=== PATIENT | female | born 2000 | race Caucasian/White ===

== ENCOUNTER 2023-09-14 20:40 | Emergency (ER) | payer OTHER, MEDICAID, SELFPAY ==
[2023-09-14 20:47] VITALS: BP 149/89; PULSE 52; RESP 16; TEMP 36.9; O2SAT 99; BMI 27.1
[2023-09-14 21:50] LABS: Bilirubin Urine MODERATE (NEGATIVE); Blood Urine LARGE (NEGATIVE); Clarity Urine CLEAR (CLEAR); Color Urine DK. ORANGE (YELLOW); Glucose Urine UA 250 mg/dL (NEGATIVE); Ketones Urine NEGATIVE (NEGATIVE); Leukocyte Esterase Urine MODERATE (NEGATIVE); Nitrite Urine POSITIVE (NEGATIVE); Protein Urine 100 mg/dL (NEG/TRACE); Urobilinogen Urine >=8.0 EU/dL (0.2-1.0)
[2023-09-14 21:52] LABS: Urine Microscopic Indicated YES
[2023-09-14 21:59] VITALS: BP 121/71; PULSE 52; RESP 16; O2SAT 100
[2023-09-14 22:05] LABS: Bacteria Urine NONE SEEN #/HPF (NONE SEEN); Cast Seen? NONE SEEN #/LPF (NONE SEEN); Crystals Seen? None Seen #/HPF (None Seen); Mucus Urine NONE SEEN (NONE SEEN); RBC Urine 0-2 #/HPF (0-2); Squamous Epithelial Cell Urine FEW #/LPF (NONE/RARE); Transitional Epi Cells Urine RARE #/LPF (NONE SEEN); Urine Culture Indicated YES
--- NOTE | 2023-09-14 22:06 | CT_ITS ---
The [address] [address] Patient Name: KWASI HEBERT MRN: [id number] date: 2000 Sex: F Assigned Patient Location: ER Current Patient Location: ER Accession/Order Number: [id number] Exam Date: 09/14/2023 22:26 Report Date: 09/14/2023 22:43 At the request of: EARLINE HALL Procedure: CT abdomen pelvis wo con EXAM: CT abdomen pelvis wo con HISTORY: left flank pain, left abd pain COMPARISON: None. TECHNIQUE: Unenhanced axial CT of the abdomen and pelvis was performed with coronal and sagittal reformats provided. FINDINGS: Lung bases: Clear. ABDOMEN: Liver: Normal. Gallbladder/biliary: Hyperdense debris in the gallbladder lumen could reflect sludge or small stones. No biliary dilation. Pancreas: Normal. Spleen: Normal. Adrenals: Normal. Kidneys, ureters and urinary bladder: Normal. Pelvis: Normal size of the uterus. No adnexal masses. Vasculature: Normal caliber of the abdominal aorta. Hollow viscera/retroperitoneum: Normal appearance of the gastroesophageal junction. Small bowel is normal caliber. Appendix is normal. No focal colonic wall thickening. No mesenteric or pelvic lymphadenopathy. No intra-abdominal free fluid or free air. Musculoskeletal/soft tissues: The soft tissues are within normal limits. No acute fracture or aggressive osseous abnormality. CT/CT abdomen pelvis wo con IMPRESSION: Unremarkable CT of the abdomen and pelvis. Electronically authenticated by: DAISY CORDOBA Date: 09/14/2023 22:43
--- NOTE | 2023-09-14 22:07 | ED_ITS ---
HPI - General Adult General Chief complaint: Back Pain/Injury Stated complaint: POSS KIDNEY STONE Time Seen by Provider: 09/14/23 21:20 Source: patient Mode of arrival: walk-in History of Present Illness HPI narrative: Patient developed low back pain - left worse than right - a couple of days ago. She started to developed urinary frequency yesterday and then had trouble passing urine today due to the pain. She had sudden worsening of the low back pain around 8pm and it moved more prominently into the left flank and left lower abdomen at that time. Nothing taken at home for pain. No prior history of similar pain or kidney stones although she admits that she frequently gets UTIs. No fever or chills. She had some nausea and vomited a couple of days ago. She is currently on her menstrual period. Related Data Home Medications Medication Instructions Recorded Confirmed brivaracetam 100 mg tablet 100 mg PO BID 09/14/23 09/14/23 (Briviact) sertraline 50 mg tablet 50 mg PO DAILY 09/14/23 09/14/23 Previous Rx's Medication Instructions Recorded ciprofloxacin HCl 500 mg tablet 500 mg PO BID #10 tabs 09/14/23 (Cipro) nabumetone 750 mg tablet 750 mg PO BID PRN pain #14 tabs 09/14/23 Allergies Allergy/AdvReac Type Severity Reaction Status Date / Time Iodinated Contrast Media Allergy Severe Verified 09/14/23 20:53 morphine Allergy Severe Verified 09/14/23 20:53 zonisamide Allergy Severe Verified 09/14/23 20:53 Exam Narrative Exam Narrative: Nurses notes and vital signs reviewed and patient is not hypoxic. afebrile General: Well-appearing and in no apparent distress. Skin: Warm, dry, no pallor noted. No rash to back or abdomen. Head: Normocephalic, atraumatic. Neck: Supple, non-tender. Eye: Pupils are equal, round and EOMI. No scleral icterus. Cardiovascular: Regular Rate and Rhythm without murmur, gallop or rub. Respiratory: No accessory muscle use or respiratory distress. Lungs are clear to auscultation, no wheezing, rales or rhonchi Back: No midline thoracic or lumbar vertebral tenderness. Left CVA tenderness Musculoskeletal: normal ROM GI: Abdomen is soft, non-distended. Normal bowel sounds. No masses appreciated. LLQ tenderness to palpation. No rebound, guarding, or rigidity noted. Neurological: A&O x4. No cranial nerve dysfunction observed. No truncal ataxia. Moves all extremities. Sensation intact. Psychiatric: Cooperative and interactive. Normal mood and affect. Constitutional Vital Signs, click to edit/add: Last Vital Signs Temp 98.4 F 09/14/23 20:47 Pulse 52 L 09/14/23 21:59 Resp 16 09/14/23 21:59 BP 121/71 09/14/23 21:59 Pulse Ox 100 09/14/23 21:59 O2 Del Method Room Air 09/14/23 20:47 Course Vital Signs Vital signs: Vital Signs Temperature 98.4 F 09/14/23 20:47 Pulse Rate 52 L 09/14/23 20:47 Respiratory Rate 16 09/14/23 20:47 Blood Pressure 149/89 H 09/14/23 20:47 Pulse Oximetry 99 09/14/23 20:47 Oxygen Delivery Method Room Air 09/14/23 20:47 Temperature 98.4 F 09/14/23 20:47 Pulse Rate 52 L 09/14/23 21:59 Respiratory Rate 16 09/14/23 21:59 Blood Pressure 121/71 09/14/23 21:59 Pulse Oximetry 100 09/14/23 21:59 Oxygen Delivery Method Room Air 09/14/23 20:47 Medical Decision Making MDM Narrative Medical decision making narrative: Urine was obtained in triage and the patient was found to have an acute urinary tract infection. No beds were initially available for the patient to be brought back to be examined and further evaluated. After examination, I ordered the patient undergo CT scanning of the abdomen pelvis. I also ordered her to receive the first dose of Cipro for her acute u rinary tract infection. Toradol was also given orally for pain. CT did not reveal any worrisome findings and the patient was discharged home with prescriptions for Cipro and Relafen. PCP follow up or ED return if she worsens Lab Data Lab results reviewed: Yes I reviewed the patient's lab results Labs: Lab Results 09/14/23 Range/Units 20:59 Urine Color Dk. orange (YELLOW) Urine Clarity Clear (CLEAR) Urine pH 5.0 (5.0-9.0) Ur Specific [place] 1.010 (1.005-1.025) Urine Protein 100 A (NEG/TRACE) mg/dL Urine Glucose (UA) 250 A (NEGATIVE) mg/dL Urine Ketones Negative (NEGATIVE) mg/dL Urine Occult Blood Large A (NEGATIVE) Urine Nitrite Positive A (NEGATIVE) Urine Bilirubin Moderate A (NEGATIVE) Urine Urobilinogen >=8.0 (0.2-1.0) EU/dL Ur Leukocyte Esterase Moderate A (NEGATIVE) Urine RBC 0-2 (0-2) #/HPF Urine WBC 10-20 A (NONE SEEN) #/HPF Ur Squamous Epith Cells Few A (NONE/RARE) #/LPF Ur Transition Epith Cell Rare A (NONE SEEN) #/LPF Urine Crystals None seen (None Seen) #/HPF Urine Bacteria None seen (NONE SEEN) #/HPF Urine Casts None seen (NONE SEEN) #/LPF Urine Mucus None seen (NONE SEEN) Ur Culture Indicated? Yes Imaging Data CT scan - abdomen: Radiologist's impression: ITS Impressions Abdomen/Pelvis CT 09/14/23 22:06 IMPRESSION: Unremarkable CT of the abdomen and pelvis. Electronically authenticated by: DAISY CORDOBA Date: 09/14/2023 22:43 Discharge Plan Discharge Chief Complaint: Back Pain/Injury Clinical Impression: UTI (urinary tract infection), Low back pain Patient Disposition: Home, Self-Care Time of Disposition Decision: 22:11 Prescriptions / Home Meds: New ciprofloxacin HCl [Cipro] 500 mg tablet 500 mg PO BID Qty: 10 0RF nabumetone 750 mg tablet 750 mg PO BID PRN (Reason: pain) Qty: 14 0RF No Action Briviact 100 mg tablet 100 mg PO BID sertraline 50 mg tablet 50 mg PO DAILY Instructions: Urinary Tract Infection in Women (ED), Acute Low Back Pain (ED) Stand Alone Forms: Portal Instructions Referrals: HINA BAILEY [Primary Care Provider] - 1 week
[2023-09-14] MEDS: CIPROFLOXACIN HCL 500 MG TABLET PO (22:45)
[2023-09-14] MEDS: KETOROLAC TROMETHAMINE 10 MG TABLET PO (22:45)
== END 2023-09-14 22:59 | disposition home or self-care (01) ==
PROVIDERS: Emergency Provider Emergency Medicine; PCP Family Medicine
DX: N39.0 Urinary tract infection, site not specified (principal); M54.50 Low back pain, unspecified; Z79.899 Other long term (current) drug therapy
CPT/HCPCS: 74176; 81001; 87086; 87150; 87186; 99284

== ENCOUNTER 2023-12-31 11:28 | Emergency (ER) | payer OTHER, MEDICAID, SELFPAY ==
[2023-12-31 11:31] VITALS: BP 104/60; PULSE 53; TEMP 36.6; O2SAT 100; BMI 27.3
--- NOTE | 2023-12-31 11:35 | ED.ANXIETY1 ---
HPI - Anxiety General Chief Complaint: Anxiety Stated Complaint: SOB Time Seen by Provider: 12/31/23 11:31 Source: patient Mode of arrival: walk-in Limitations: no limitations History of Present Illness HPI narrative: The patient coming to the ER with 2 days history of chest pain the pain started after she had a panic attack and she vomited couple times. None of the vomitus was bloody. But she mentioned that she has been having retrosternal pain since then that is fixed and will get worse whenever she leaned forward. She denies any nausea vomiting since then she also denies any cough or fever. Related Data Home Medications ?Medication ?Instructions ?Recorded ?Confirmed brivaracetam 100 mg tablet 100 mg PO BID 09/14/23 12/31/23 (Briviact) Previous Rx's ?Medication ?Instructions ?Recorded famotidine 20 mg tablet (Pepcid) 20 mg PO BID #10 tabs 12/31/23 meloxicam 15 mg tablet 15 mg PO DAILY PRN pain #10 tabs 12/31/23 Allergies Allergy/AdvReac Type Severity Reaction Status Date / Time Iodinated Contrast Media Allergy Severe Verified 09/14/23 20:53 morphine Allergy Severe Verified 09/14/23 20:53 zonisamide Allergy Severe Verified 09/14/23 20:53 Review of Systems ROS Status of ROS 10 or more systems reviewed and unremarkable except as noted in history and below Exam Narrative Exam Narrative: Nurses notes and vital signs reviewed and patient is not hypoxic. General: Well-appearing and in no apparent distress. Skin: Warm, dry, no pallor noted. No rash. Head: Normocephalic, atraumatic. Neck: Supple, non-tender. Eye: Pupils are equal, round and EOMI. No scleral icterus. Ears, Nose, Mouth, and Throat: TM are clear, no nasal mucosal hypertrophy. Oral mucosa is moist, no posterior oropharynx erythema, uvula is mid-line Cardiovascular: Regular Rate and Rhythm without murmur, gallop or rub. Respiratory: No accessory muscle use or respiratory distress. Lungs are clear to auscultation, no wheezing, rales or rhonchi Chest Wall: Tenderness upon palpation of the upper retrosternal area Back: No midline thoracic or lumbar vertebral tenderness. No CVA tenderness Musculoskeletal: normal ROM, no calf or popliteal tenderness, no lower extremity edema/swelling GI: Abdomen is soft, non-distended. Normal bowel sounds. No masses appreciated. No tenderness to palpation. No rebound, guarding, or rigidity noted. Neurological: A&O x4. No cranial nerve dysfunction observed. No truncal ataxia. Moves all extremities. Sensation intact. Psychiatric: Cooperative and interactive. Normal mood and affect. Constitutional Vital Signs, click to edit/add: Last Vital Signs Temp 97.8 F 12/31/23 11:31 Pulse 53 L 12/31/23 11:31 Resp 16 12/31/23 11:31 BP 104/60 12/31/23 11:31 Pulse Ox 100 12/31/23 11:31 O2 Del Method Room Air 12/31/23 11:31 Course Vital Signs Vital signs: Vital Signs Temperature 97.8 F 12/31/23 11:31 Pulse Rate 53 L 12/31/23 11:31 Respiratory Rate 16 12/31/23 11:31 Blood Pressure 104/60 12/31/23 11:31 Pulse Oximetry 100 12/31/23 11:31 Oxygen Delivery Method Room Air 12/31/23 11:31 Temperature 97.8 F 12/31/23 11:31 Pulse Rate 53 L 12/31/23 11:31 Respiratory Rate 16 12/31/23 11:31 Blood Pressure 104/60 12/31/23 11:31 Pulse Oximetry 100 12/31/23 11:31 Oxygen Delivery Method Room Air 12/31/23 11:31 MDM - Anxiety MDM Narrative Medical decision making narrative: EKG showing sinus rhythm with a heart rate of [address] elevation or depression The patient chest x-ray showed no acute pathology CBC and chemistry as well as troponin showed no acute pathology as well The patient presentation is mostly secondary to atypical chest pain which mostly secondary to either costochondritis or possibly GERD. Right now the patient will be treated with Pepcid and Mobic to go home with She was instructed that she need to monitor her symptoms getting better she received Toradol in the ER as well as Pepcid before getting discharged The patient is to follow up with primary care physician in next 2-3 days or to return to the emergency department should any of the signs or symptoms worsen or new symptoms develop. The patient agrees with the following Diagnosis and Treatment plan and the patient will be discharged home. Lab Data Labs: Lab Results 12/31/23 Range/Units 11:44 WBC 5.8 (4.0-11.0) 10^3/uL RBC 4.56 (4.20-5.40) 10^6/uL Hgb 13.5 (12.0-16.0) g/dL Hct 41.6 (36.0-48.0) % MCV 91.2 (81.0-99.0) fL MCH 29.6 (26.7-34.0) pg MCHC 32.5 (29.9-35.2) g/dL RDW 13.4 (11.0-15.0) % Plt Count 194 (150-450) 10^3/uL MPV 11.5 (9.5-13.5) fL Neut % (Auto) 60.9 (43.0-75.0) % Lymph % (Auto) 28.5 (20.5-60.0) % [place] % (Auto) 6.5 (1.7-12.0) % Eos % (Auto) 2.4 (0.9-7.0) % Baso % (Auto) 1.5 (0.2-2.0) % Neut # (Auto) 3.5 (1.4-6.5) 10^3/uL Lymph # (Auto) 1.7 (1.2-3.8) 10^3/uL [place] # (Auto) 0.4 (0.3-0.8) 10^3/uL Eos # (Auto) 0.1 (0.0-0.7) 10^3/uL Baso # (Auto) 0.1 (0.0-0.1) 10^3/uL Abs Immat Gran (auto) 0.01 (0.00-0.03) 10^3/uL Imm/Tot Granulo (auto) 0.2 (0.0-0.5) % Sodium 140 (136-145) mmol/L Potassium 3.8 (3.5-5.1) mmol/L Chloride 103 (98-107) mmol/L Carbon Dioxide 27.0 (21.0-32.0) mmol/L Anion Gap 13.8 BUN 14.0 (7.0-18.0) mg/dL Creatinine 0.94 (0.55-1.02) mg/dL Est GFR ( Amer) >60 (>=60) Est GFR (Non-Af Amer) >60 (>=60) BUN/Creatinine Ratio 14.9 Glucose 95 (74-106) mg/dL Calcium 9.4 (8.5-10.1) mg/dL Total Bilirubin 0.3 (0.2-1.0) mg/dL AST 10 L (15-37) U/L ALT 16 (14-59) U/L Alkaline Phosphatase 68 (46-116) U/L Troponin I High Sens 4.4 (4.0-51.3) pg/mL Total Protein 7.2 (6.4-8.2) g/dL Albumin 4.1 (3.4-5.0) g/dL Globulin 3.1 g/dL Albumin/Globulin Ratio 1.3 Serum HCG, Qual Negative (NEGATIVE) Discharge Plan Discharge Stand Alone Forms: Portal Instructions Chief Complaint: Anxiety Clinical Impression: Acute costochondritis GERD (gastroesophageal reflux disease) Qualifiers: Esophagitis presence: without esophagitis Qualified Code(s): K21.9 - Gastro-esophageal reflux disease without esophagitis Patient Disposition: Home, Self-Care Time of Disposition Decision: 12:20 Condition: Good Prescriptions / Home Meds: New famotidine [Pepcid] 20 mg tablet 20 mg PO BID Qty: 10 0RF meloxicam 15 mg tablet 15 mg PO DAILY PRN (Reason: pain ) Qty: 10 0RF No Action Briviact 100 mg tablet 100 mg PO BID Print Language: Indian Instructions: Costochondritis (ED), GERD (Gastroesophageal Reflux Disease) (DC) Referrals: HINA BAILEY [Primary Care Provider] - 1 week
--- NOTE | 2023-12-31 11:36 | XR_ITS ---
[address] [address] Patient Name: KWASI HEBERT MRN: [id number] date: 2000 Sex: F Assigned Patient Location: ER Current Patient Location: ER Accession/Order Number: [id number] Exam Date: 12/31/2023 11:40 Report Date: 12/31/2023 11:55 At the request of: LUCY BENITEZ Procedure: XR chest 1V EXAM: XR chest 1V HISTORY: cp COMPARISON: None. TECHNIQUE: Frontal view of the chest. FINDINGS: No focal consolidations or pleural effusions. Cardiomediastinal silhouette is unremarkable. Visualized osseous structures are unremarkable. XR/XR chest 1V IMPRESSION: No acute disease. Electronically authenticated by: ZARINA HAMMONDS Date: 12/31/2023 11:55
--- NOTE | 2023-12-31 11:36 | ECG_ITS ---
[facility] Test Date: 2023-12-31 Pat Name: KWASI HEBERT Department: Room: - Gender: Female Talent Recruiter: : 2000 Requested By: Order Number: [id number] Reading MD: JARAD FLORES Measurements Intervals [place] Rate: 51 P: 67 HI: 120 QRS: 83 QRSD: 76 T: 83 QT: 420 QTc: 396 Interpretive Statements 1100 Sinus rhythm Non-Specific T wave inversion in aVL 9110 normal ECG No previous ECG available for comparison Electronically Signed On 01-01-2024 6:24:45 EDT by JARAD FLORES
--- OUTSIDE RECORDS SUMMARY | 2023-12-31 11:36 | XMS_ITS | CCD ---
Author Organization [facility] Care Team Providers Care Pharmacy Operations Manager Name Role Phone Kamran TORRE, Remi Dahl Primary Care Provider MD Remi Andrew Primary Care Provider JERZY Welsh Emergency Provider [phone] DO Brando Guy Emergency Provider [phone] KRISTA Barlow Emergency Provider [phone] KRISTA Barlow Attending Provider [phone] DO Bill Keith Emergency Provider Kamran TORRE, Remi Dahl Primary Care Provider Kamran TORRE, Remi Dahl Primary Care Provider Kamran TORRE, Remi Dahl Primary Care Provider MD Remi Andrew Primary Care Provider MD Sedrick Pina Jr Emergency Provider KRISTA Funk Emergency Provider DO Shashi Ornelas Emergency Provider MD Remi Batista Primary Care Provider KRISTA Barlow Emergency Provider [phone] CLAUDIO MICHAELS Referring Unavailable ANDREWREMI Primary Care Unavailable CLAUDIO MICHAELS Referring Unavailable CLAUDIO MICHAELS Attending Unavailable REMI ANDREW Primary Care Unavailable LAYTON ALCALA Referring Unavailable REMI ANDREW Primary Care Unavailable EVARISTO TORRES Referring Unavailable ANDREW, REMI JORGE Primary Care Unavailable [facility] Care Unavailable SERLETIS, DEMITRE Referring Unavailable [facility] Primary Care Unavailable EVARISTO TORRES Referring Unavailable [facility] Primary Care Unavailable NYASIA OJEDA Attending Unavailable SHEREE RICO [facility] Unavailable SERLETIS, DEMITRE Attending Unavailable SERLETIS, DEMITRE Admitting Unavailable [facility] Care Unavailable SERLETIS, DEMITRE Referring Unavailable [facility] Primary Care Unavailable SERLETIS, DEMITRE Attending Unavailable SERLETIS, DEMITRE Referring Unavailable [facility] Primary Care Unavailable SERLETIS, DEMITRE Referring Unavailable [facility] Primary Care Unavailable EVARISTO TORRES Referring Unavailable CHRISTIANO VACA Attending Unavailable [facility] Care Unavailable EVARISTO TORRES Referring Unavailable [facility] Primary Care Unavailable EVARISTO TORRES Referring Unavailable [facility] Primary Care Unavailable SERLETIS, DEMITRE Referring Unavailable [facility] Care Unavailable SERLETIS, DEMITRE Referring Unavailable [facility] Care Unavailable SERLETIS, DEMITRE Attending Unavailable [facility] Primary Care Unavailable JARAD SON E Referring Unavailable [facility] Primary Care Unavailable JARAD SON E Referring Unavailable JARAD SON E Attending Unavailable [facility] Care Unavailable SERLETIS, DEMITRE Attending Unavailable [facility] Primary Care Unavailable [facility] Primary Care Unavailable MARIN, ROBERT R Attending Unavailable [facility] Primary Care Unavailable [facility] Primary Care Unavailable [facility] Primary Care Unavailable MARIN, ROBERT R Attending Unavailable [facility] Primary Care Unavailable [facility] Primary Care Unavailable MARIN, ROBERT R Attending Unavailable [facility] Primary Care Unavailable SERLETIS, DEMITRE Attending Unavailable SERLETIS, DEMITRE Admitting Unavailable [facility] Primary Care Unavailable MARIN, ROBERT R Attending Unavailable [facility] Primary Care Unavailable SERLETIS, DEMITRE Attending Unavailable MARIN, ROBERT R Referring Unavailable [facility] Primary Care Unavailable MARIN, ROBERT R [facility] Care Unavailable EVARISTO TORRES Referring Unavailable ANDREW, REMI JORGE Primary Care Unavailable ANDREW, REMI JORGE Primary Care Unavailable EVARISTO TORRES Attending Unavailable ANDREW, REMI JORGE Primary Care Unavailable CLAUDIO MICHAELS Referring Unavailable ANDREW, REMI JORGE Primary Care Unavailable Travis MILIT[employer] SOURCE OPERATIONS SPECIALIST, Jessa L Unavailable [phone] Remi Andrew MD Primary Care Provider [phone] NONE, XXXX Primary Care Physician Unavailab ALANNAH Hui Attending Unavailable CHRISTIE ALDANA Attending Unavailable CHRISTIE ALDANA Attending Unavailable CHRISTIE ALDANA Attending Unavailable Robyn Bundy Attending Unavailable Robyn Bundy Admitting Unavailable Feng Barlow Admitting Unavailable Feng Barlow Attending Unavailable Remi Andrew Primary Care Unavailable Kristine Welsh Attending Unavailable Kristine Welsh Admitting Unavailable Remi Andrew Primary Care Unavailable Allergies Allergy Classification Reported Allergen(s) Allergy Type Date of Onset Reaction(s) Facility (20 sources) Iodinated Contrast Media; Translations: [IODINATED CONTRAST MEDIA] Drug Intolerance 7 Hives, Itching, Anaphylaxis, Dizziness, Headache, Rash, Shortness of breath [facility] (20 sources) Morphine; Translations: [MORPHINE] Drug Allergy 2 Intolerance [facility] Work Phone: (20 sources) zonisamide; Translations: [ZONISAMIDE] Drug Allergy 2 Mental Status Change, GI Upset, Vomiting, Shortness of Breath [facility] (3 sources) Contrast media Propensity to adverse reactions 2 Anaphylaxis [facility] (4 sources) Iodine Drug Allergy 3 [facility] (4 sources) Zonisamide Allergy to substance 2 GI intolerance, Shortness of breath [facility] (1 source) Morphine Drug Allergy 3 [facility] (1 source) zonisamide Drug Allergy 3 [facility] (1 source) Iodinated Contrast Media Drug allergy (disorder) 3 [facility] Medications Current Medications Medication Drug Class(es) Dates Sig (Normalized) Sig (Original) amoxicillin 875 mg oral tablet (8 sources) Penicillin-class Antibacterial Start: 08-30-2022 End: 09-01-2022 take 1 tablet by mouth twice daily amoxicillin (AMOXIL) 875 mg tablet Take 1 tablet by mouth twice daily for 2 doses. 2 tablet 0 08/30/2022 09/01/2022 Active Start: 08-07-2021 End: 10-10-2021 take 875 mg by mouth every twelve hours Amoxicillin Discontinued 875 MG PO Q12H 02 06August 07, 2021 12:00am October 10, 2021 3:50pm Comment on above: Take 1 tablet by jaron th twice daily for 2 doses. amoxicillin 875 mg / clavulanate 125 mg oral tablet (1 source) Penicillin-class Antibacterial Start: 07-11-20 take 1 tablet by mouth twice daily Amoxicillin-Pot Clavulanate Active 1 TAB PO Twice daily July 11, 2023 12:00am brivaracetam 100 mg oral tablet (20 sources) Start: 07-31-20 End: 01-28-20 24 take 1 tablet by mouth twice daily brivaracetam (BRIVIACT) 100 mg tablet Indications: Seizure (HCC) Take 1 tablet by mouth two times a day for 90 days. 60 tablet 2 10/30/2023 01/28/2024 Active Start: 11-27-2022 End: 06-19-2023 take 1 tablet by mouth twice daily brivaracetam (BRIVIACT) 100 mg tablet Indications: Seizure (HCC) Take 1 tablet by mouth twice daily for 90 days. 60 tablet 2 03/21/2023 Active Start: 11-01-2022 End: 10-12-2022 take 1 tablet by mouth twice daily brivaracetam (BRIVIACT) 100 mg tablet Indications: Seizure (HCC) Take 1 tablet by mouth twice daily for 180 days. Do not start before November 01, 2022. 180 tablet 1 11/01/2022 10/12/2022 Discontinued Start: 10-03-2022 End: 11-11-2022 take 1 tablet by mouth twice daily brivaracetam (BRIVIACT) 100 mg tablet Indications: Seizure (HCC) Take 1 tablet by mouth twice daily for 30 days. 60 tablet 0 10/12/2022 Active Comment on above: Take 1 tablet by [facility] twice daily for 180 days. Do not start before November 01, 2022. Take 1 tablet by [facility] twice daily for 30 days. Take 1 tablet by [facility] twice daily for 90 days. Take 1 tablet by [facility] two times a day for 90 days. cephalexin 500 mg oral capsule (20 sources) Cephalosporin Antibacterial Start: take 500 mg by mouth twice daily Cephalexin Active 500 MG PO Twice daily 14 March 09, 2023 11:00pm Start: 10-10-2021 End: 11-10-2021 take 500 mg by mouth twice daily Cephalexin Discontinued 500 MG PO Twice daily 14 October 10, 2021 12:00am November 10, 2021 10:12am Start: 06-14-2021 End: 10-10-2021 take 500 mg by mouth every six hours Cephalexin Discontinued 500 MG PO Q6H 28 June 13, 2021 11:00pm October 10, 2021 3:50pm Start: 05-15-2020 End: 06-15-2020 take 1000 mg by mouth twice daily Cephalexin Discontinued 1000 MG PO Twice daily 280 May 14, 2020 11:00pm June 15, 2020 8:59am ciprofloxacin 3 mg/ml ophthalmic solution (1 source) Quinolone Antimicrobial Start: 01-30-2023 End: 02-24-2023 take 1 drop(s) into the eye(s) four times daily ciprofloxacin HCl (CILOXAN) 0.3 % ophthalmic solution Use 1 Drop in the right eye four times daily for 5 days. 5 mL 0 01/30/2023 02/24/2023 Active Comment on above: Use 1 Drop in the ri ght eye four times daily for 5 days. docusate sodium 50 mg / sennosides, correction 8.6 mg oral tablet (7 sources) Start: 12-22-2022 End: 01-23-2023 take 1 tablet by mouth twice daily senna-docusate (SENNA-S) 8.6-50 mg per tablet Take 1 tablet by mouth twice daily. 60 tablet 0 12/22/2022 01/23/2023 Active Start: 07-15-2022 End: 01-12-2023 take 2 tablets by mouth once daily at bedtime Sennosides-Docusate Sodium (Senna Plus) 8.6-50 mg tablet Discontinued 2 TAB PO Daily at bedtime July 15, 2022 12:00am August 25, 2022 2:51pm Comment on above: Take 1 tablet by jaron th twice daily. iv contrast (will be provided with radiology test) (2 sources) Start: 3 End: inject 1 dose intravenously once iv contrast (will be provided with radiology test) Indications: Encounter for other preprocedural examination CTA Head W IVCON No IV access, insert saline lock prior to the sedation, infusion, injection for imaging exam. Discontinue saline lock post exam. If Pt. has a central line or IVAD, may access for administration according to line specific nursing protocol. Once exam is complete flush line and de-access according to line specific nursing protocol in the CT contrast administration guidelines link. 1 Each 0 10/19/2022 10/20/2022 Active Start: 10-19-2022 End: 10-20-2022 inject 1 dose intravenously once iv contrast (will be provided with radiology test) Indications: Encounter for other preprocedural examination MRI Brain Localization Inject, intravenously, once for 1 dose.No IV access, insert saline lock prior to beginning of sedation, infusion, injection of imaging exam.Discontinue saline lock post exam. If Pt. has a central line or IVAD, may access for administration according to line specific nursing protocol.Once exam is complete flush line and de-access according to line specific nursing protocol in the MR contrast administration guidelines link 1 Each 0 10/19/2022 10/20/2022 Active Comment on above: CTA Head W IVCON No IV access, insert saline lock prior to the sedation, infusion, injection for imaging exam. Discontinue saline lock post exam. If Pt. has a central line or IVAD, may access for administration according to line specific nursing protocol. Once exam is complete flush line and de-access according to line specific nursing protocol in the CT contrast administration guidelines link. MRI Brain Localizati on Inject, intravenously, once for 1 dose.No IV access, insert saline lock prior to beginning of sedation, infusion, injection of imaging exam.Discontinue saline lock post exam. If Pt. has a central line or IVAD, may access for administration according to line specific nursing protocol.Once exam is complete flush line and de-access according to line specific nursing protocol in the MR contrast administration guidelines link lamoTRIgine 100 mg oral tablet (20 sources) Mood Stabilizer, Anti-epileptic Agent Start: 07-11-20 End: 01-08-20 23 take 2 tablets by mouth twice daily lamoTRIgine (LAMICTAL) 100 mg tablet Take 2 tablets by mouth twice daily. 120 tablet 5 07/11/2022 01/07/2023 Suspended Start: 07-11-2022 take 2 tablets by mo ut twice daily lamoTRIgine dispersible/chewable (LAMICTAL) 25 mg tablet Indications: Partial symptomatic epilepsy with complex partial seizures, not intractable, without status epilepticus (HCC) Take 2 tablets by mouth twice daily. Increase as directed take along with the 100mg tablets. 360 tablet 1 07/11/2022 Suspended Start: 07-11-2022 End: 07-11-2022 take 8 tablets by mouth twice daily lamoTRIgine dispersible/chewable (LAMICTAL) 25 mg tablet Indications: Partial symptomatic epilepsy with complex partial seizures, not intractable, without status epilepticus (HCC) Take 8 tablets by mouth twice daily. Follow schedule to reach 200 mg twice daily 360 tablet 1 07/11/2022 07/11/2022 Discontinued Start: 04-06-2022 End: 07-11-2022 lamoTRIgine dispersible/chew able (LAMICTAL) 25 mg tablet Indications: Partial symptomatic epilepsy with complex partial seizures, not intractable, without status epilepticus (HCC) Follow schedule to reach 200 mg twice daily 360 tablet 1 04/06/2022 07/11/2022 Discontinued Start: 02-10-2022 End: 04-06-2022 lamoTRIgine dispersible/chew able (LAMICTAL) 25 mg tablet Indications: Partial symptomatic epilepsy with complex partial seizures, not intractable, without status epilepticus (HCC) Follow schedule to reach 150mg BID 360 tablet 1 02/10/2022 04/06/2022 Discontinued Start: 02-10-2022 End: 10-02-2022 take 225 mg by mouth twice daily Lamotrigine Discontinued 225 MG PO Twice daily February 09, 2022 11:00pm October 02, 2022 7:54pm Start: 02-10-2022 take 150 mg by mouth twice daily Lamotrigine Active 150 MG PO Twice daily February 10, 2022 12:00am Start: 01-29-2022 End: 02-10-2022 take 50 mg by mouth once daily Lamotrigine Discontinued 50 MG PO Daily January 28, 2022 11:00pm February 10, 2022 5:42am Start: 01-29-2022 End: 02-10-2022 take 25 mg by mouth once daily at bedtime Lamotrigine Discontinued 25 MG PO Daily at bedtime January 28, 2022 11:00pm February 10, 2022 5:42am Start: 12-22-2021 End: 06-20-2022 take 6 tablets by mouth twice daily lamoTRIgine (LAMICTAL) 25 mg tablet Take 6 tablets by mouth twice daily. Increase to this dose as instructed. 360 tablet 5 12/22/2021 02/10/2022 Discontinued Comment on above: Take 6 tablets by mo uth twice daily. Increase to this dose as instructed. Follow schedule to r each 150mg BID Follow schedule to r each 200 mg twice daily Take 2 tablets by mo uth twice daily. Take 2 tablets by mo uth twice daily. Increase as directed take along with the 100mg tablets. Take 8 tablets by mo uth twice daily. Follow schedule to reach 200 mg twice daily levETIRAcetam 100 mg/ml oral solution (17 sources) Start: End: take 5 mL by mouth twice daily levETIRAcetam (KEPPRA) 100 mg/mL solution Indications: Partial symptomatic epilepsy with complex partial seizures, not intractable, without status epilepticus (HCC) Take 5 mL by mouth twice daily. Wean off as directed over 14 weeks 300 mL 2 02/10/2022 04/06/2022 Discontinued (Course of therapy completed) Start: 11-11-2021 End: 03-22-2022 take 1 tablet by mouth every twelve hours levETIRAcetam (KEPPRA) 500 mg tablet Take 1 tablet by mouth every 12 hours. Wean off as instructed. 60 tablet 2 12/22/2021 02/10/2022 Discontinued Start: 11-10-2021 End: 03-14-2022 take 1 tablet by mouth twice daily Levetiracetam (Keppra) 500 mg tablet Discontinued 500 MG PO Twice daily November 09, 2021 11:00pm March 14, 2022 1:56pm Comment on above: Take 1 tablet by jaron th every 12 hours. Wean off as instructed. Take 500 mg by mouth every 12 hours. Take 5 mL by mouth t wice daily. Wean off as directed over 14 weeks mupirocin 0.02 mg/mg topical ointment (1 source) RNA Synthetase Inhibitor Antibacterial Start: End: mupirocin (BACTROBAN) 2 % ointment Apply small amount of ointment to each nostril using cotton swab twice daily leading up to surgery (starting 11/26) and then once the morning of surgery on 12/01 22 g 0 11/26/2022 12/01/2022 Active Comment on above: Apply small amount o f ointment to each nostril using cotton swab twice daily leading up to surgery (starting 11/26) and then once the morning of surgery on 12/01 nitrofurantoin, macrocrystals 100 mg oral capsule (1 source) Nitrofuran Antibacterial Start: take 100 mg by mouth twice daily at mealtime Nitrofurantoin Macrocrystal Active 100 MG PO Twice daily 11 13March 11, 2023 11:00pm must administer with a meal/food OXcarbazepine 300 mg oral tablet (8 sources) Anti-epileptic Agent Start: End: take 1 tablet by mouth once daily in the morning, then take 3 tablets by mouth once daily in the evening OXcarbazepine (TRILEPTAL) 300 mg tablet Take 1 tablet by mouth every morning AND 3 tablets every evening. 360 tablet 1 07/24/2023 01/20/2024 Active Start: 10-02-2022 End: 11-27-2022 Oxcarbazepine Discontinued 0 .ROUTE .COMPLEX October 02, 2022 12:00am November 27, 2022 4:33pm SEE COMMENTS. Start: 09-28-2022 End: 03-27-2023 take 10 mL by mouth once daily in the morning, then take 15 mL by mouth once daily in the evening OXcarbazepine (TRILEPTAL) 300 mg/5 mL (60 mg/mL) suspension Take 10 mL by mouth every morning AND 15 mL every evening. Increase to this dose as instructed.. 750 mL 5 09/28/2022 03/27/2023 Active Comment on above: Take 10 mL by mouth every morning AND 15 mL every evening. Increase to this dose as instructed.. Take 1 tablet by jaron th every morning AND 3 tablets every evening. perflutren lipid microspheres 1.3 mL in NaCl (PF) 0.9% 10 mL injection (DEFINITY) (5 sources) Start: End: perflutren lipid microspheres 1.3 mL in NaCl (PF) 0.9% 10 mL injection (DEFINITY) phenazopyridine hydrochloride 200 mg oral tablet (8 sources) Start: take 200 mg by mouth three times daily at mealtime Phenazopyridine Active 200 MG PO Three times daily 10 March 09, 2023 11:00pm administer with a full glass of water after each meal Start: 06-14-2021 End: 10-10-2021 take 1 tablet by mouth three times daily Phenazopyridine (Pyridium) 200 mg Tablet Discontinued 200 MG PO Three times daily June 13, 2021 11:00pm October 10, 2021 3:50pm sertraline 50 mg oral tablet (5 sources) Serotonin Reuptake Inhibitor Start: 07-24-2023 End: 01-20-2024 take 1 tablet by mouth once daily sertraline (ZOLOFT) 50 mg tablet Take 1 tablet by mouth once daily. 90 tablet 1 07/24/2023 01/20/2024 Active Comment on above: Take 1 tablet by jaron th once daily. 125 ml sodium chloride 9 mg/ml prefilled syringe (5 sources) Start: 04-07-2022 End: 07-07-2023 sodium chloride 0.9 % (flush) 10 mL (BD POSIFLUSH) Completed/Discontinued Medications Medication Drug Class(es) Dates Sig (Normalized) Sig (Original) acetaminophen 325 mg oral tablet (16 sources) Start: 01-30-2023 End: 07-24-2023 take 2 tablets enteral route every four hours as needed acetaminophen (TYLENOL) 325 mg tablet 2 tablets by ORAL/FEEDING TUBE route every 4 hours as needed for pain. 0 01/30/2023 07/24/2023 Discontinued Start: 01-30-2023 take 2 tablets by mo uth every four hours as needed acetaminophen (TYLENOL) 325 mg tablet 2 tablets by ORAL/FEEDING TUBE route every 4 hours as needed for pain. 0 01/30/2023 Active Start: 12-22-2022 End: 01-13-2023 take 2 tablets by mouth every six hours as needed acetaminophen (TYLENOL) 325 mg tablet Take 2 tablets by mouth every 6 hours as needed for pain or fever (specify). 60 tablet 0 12/22/2022 01/13/2023 Discontinued (Discontinued by Patient) Comment on above: Take 2 tablets by mo uth every 6 hours as needed for pain or fever (specify). 2 tablets by ORAL/FE EDING TUBE route every 4 hours as needed for pain. benzoyl peroxide 0.05 mg/mg / erythromycin 0.03 mg/mg topical gel (4 sources) Macrolide, Macrolide Antimicrobial Start: End: benzoyl peroxide-erythromycin (Benzamycin) gel Indications: Acne vulgaris Apply topically at bedtime. 23.3 g 2 06/30/2023 09/20/2023 Discontinued (Therapy completed) cyclobenzaprine hydrochloride 10 mg oral tablet (17 sources) Muscle Relaxant Start: End: take 1 tablet by mouth three times daily as needed for muscle spasms cyclobenzaprine (Flexeril) 10 MG tablet Indications: Rotator cuff strain, left, initial encounter Take 1 tablet (10 mg) by mouth 3 (three) times a day as needed for muscle spasms for up to 7 days 21 tablet 0 09/02/2023 09/20/2023 Discontinued (Therapy completed) Start: 02-07-2023 End: 07-24-2023 take 1 tablet by mouth three times daily cyclobenzaprine (FLEXERIL) 5 mg tablet Take 1 tablet by mouth three times daily. 60 tablet 0 02/07/2023 07/24/2023 Discontinued Start: 01-04-2023 End: 01-13-2023 take 1 tablet by mouth three times daily cyclobenzaprine (FLEXERIL) 5 mg tablet Take 1 tablet by mouth three times daily. 30 tablet 0 01/04/2023 01/13/2023 Discontinued (Discontinued by Patient) Comment on above: Take 1 tablet by jaron th three times daily. dicyclomine hydrochloride 10 mg oral capsule (4 sources) Anticholinergic Start: End: take 10 mg by mouth three times daily Dicyclomine Discontinued 10 MG PO Three times daily July 15, 2022 12:00am August 25, 2022 2:50pm diphenhydrAMINE hydrochloride 50 mg oral capsule (5 sources) Histamine-1 Receptor Antagonist Start: End: diphenhydrAMINE (BENADRYL) 50 mg capsule Take 1 tablet by mouth at 08:30 AM on 11/22 prior to MRI 1 capsule 0 11/22/2022 11/22/2022 Discontinued Start: 11-22-2022 End: 11-22-2022 inject 1 dose intravenously every hour diphenhydrAMINE (BENADRYL) 50 mg/mL injection Indications: Contrast media allergy Inject 50 mg intravenously one time only for 1 dose. For prevention of contrast allergy given 1 hour prior to exam. 1 mL 0 11/22/2022 11/22/2022 Discontinued Comment on above: Take 1 tablet by jaron th at 08:30 AM on 11/22 prior to MRI Inject 50 mg intrave nously one time only for 1 dose. For prevention of contrast allergy given 1 hour prior to exam. folic acid 1 mg oral tablet (17 sources) Start: 3 End: 3 take 4 tablets by mouth once daily folic acid 1 mg tablet Take 4 tablets by mouth once daily. 360 tablet 1 09/28/2022 10/12/2022 Discontinued Start: 08-31-2022 End: 04-10-2023 take 2 tablets by mouth once daily folic acid 1 mg tablet Take 2 tablets by mouth once daily. 180 tablet 1 10/12/2022 11/22/2022 Discontinued Comment on above: Take 2 tablets by [facility] once daily. Take 4 tablets by [facility] once daily. ibuprofen 600 mg oral tablet (20 sources) Nonsteroidal Anti-inflammatory Drug Start: 2 End: 2 take 600 mg by mouth every six hours Ibuprofen Discontinued 600 MG PO Q6H January 28, 2022 11:00pm February 10, 2022 5:42am Start: 06-15-2020 End: 10-10-2021 take 400 mg by mouth every six hours Ibuprofen Discontinued 400 MG PO Every 6 hours June 15, 2020 12:00am October 10, 2021 3:50pm Start: 05-15-2020 End: 06-15-2020 take 400 mg by mouth three times daily Ibuprofen Discontinued 400 MG PO Three times daily May 14, 2020 11:00pm June 15, 2020 8:59am Start: 12-29-2017 End: 05-14-2020 take 800 mg by mouth three times daily Ibuprofen Discontinued 800 MG PO Three times daily December 28, 2017 11:00pm May 14, 2020 8:45pm lacosamide 100 mg oral tablet (20 sources) Anti-epileptic Agent Start: 10-03-2022 End: 12-07-2022 lacosamide (VIMPAT) 100 mg tab Indications: Partial symptomatic epilepsy with complex partial seizures, not intractable, without status epilepticus (HCC) Take 100mg in the morning and 200mg in the evening for 2 days then decrease to 100mg twice a day 90 tablet 0 10/12/2022 Suspended Start: 09-26-2022 End: 12-25-2022 take 1 tablet by mouth twice daily lacosamide (VIMPAT) 200 mg Indications: Partial symptomatic epilepsy with complex partial seizures, not intractable, without status epilepticus (HCC) Take 1 tablet by mouth twice daily for 90 days. Do not start before September 26, 2022. 180 tablet 0 09/26/2022 12/25/2022 Active Start: 08-30-2022 End: 09-28-2022 take 1 tablet by mouth twice daily, then take 1.5 tablets by mouth twice daily, then take 2 tablets by mouth twice daily lacosamide (VIMPAT) 100 mg tab Indications: Partial symptomatic epilepsy with complex partial seizures, not intractable, without status epilepticus (HCC) Take 1 tablet by mouth twice daily for 7 days, THEN 1.5 tablets twice daily for 7 days, THEN 2 tablets twice daily for 14 days. 91 tablet 0 08/30/2022 Active Comment on above: Take 1 tablet by jaron th twice daily for 7 days, THEN 1.5 tablets twice daily for 7 days, THEN 2 tablets twice daily for 14 days. Take 1 tablet by jaron th twice daily for 90 days. Do not start before September 26, 2022. Take 100mg in the mo rning and 200mg in the evening for 2 days then decrease to 100mg twice a day methocarbamol 750 mg oral tablet (4 sources) Muscle Relaxant Start: 3 End: 3 take 1 tablet by mouth every eight hours as needed methocarbamol (ROBAXIN) 750 mg tablet Take 1 tablet by mouth three times daily as needed. 28 tablet 0 01/30/2023 02/07/2023 Discontinued Start: 12-22-2022 take 2 tablets by [facility] every eight hours as needed methocarbamol (ROBAXIN) 500 mg tablet Take 2 tablets by mouth every 8 hours as needed. 30 tablet 0 12/22/2022 Active Comment on above: Take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 SPECIMENOrdering Facility: [facility] Address: [address] [place], [place] [address] Performed By: #### 5 7021-8 ####[facility] [id number] [place] [address] [place] WBC (Bld) [#/Vol] 9.80 10*3/uL Normal 3.70-11.00 [facility] Comment on above: Order Comment: Speci men Type: BLOOD SPECIMENOrdering Facility: [facility] Address: [address] [place], [place] [address] Performed By: #### 5 7021-8 ####[facility] [id number] [place] [address] [place] Magnesium SerPl-mCncon 01-29 Magnesium [Mass/Vol] 1.9 mg/dL Normal 1.7-2.3 [facility] Comment on above: Order Comment: Speci men Type: BLOOD SPECIMENOrdering Facility: [facility] Address: [address] [place], [place] [address] Performed By: #### 1 9123-9, 27133-6 ####[facility] LABCLIA [id number] [place] [address] [place] NURSING PROGon 01-29-2023 NURSING PROG Normal [facility] Renal function 2000 panelon 01-29-2023 Albumin [Mass/Vol] 4.0 g/dL Normal 3.9-4.9 [facility] Comment on above: Order Comment: Speci men Type: BLOOD SPECIMENOrdering Facility: [facility] Address: [address] [address] Performed By: #### 1 9123-9, 83486-5 ####[facility] LABCLIA [id number] [place] [address] [place] Anion gap [Moles/Vol] 12 mmol/L Normal 9-18 [facility] Comment on above: Order Comment: Speci men Type: BLOOD SPECIMENOrdering Facility: [facility] Address: [address] [address] Performed By: #### 1 9123-9, 38624-4 ####[facility] LABCLIA [id number] [place] [address] [place] Calcium [Mass/Vol] 9.1 mg/dL Normal 8.5-10.2 [facility] Comment on above: Order Comment: Speci men Type: BLOOD SPECIMENOrdering Facility: [facility] Address: [address] Performed By: #### 1 9123-9, 59935-2 ####[facility] LABIA [id number] [place] [address] [place] Chloride [Moles/Vol] 103 mmol/L Normal 97-105 [facility] Comment on above: Order Comment: Speci men Type: BLOOD SPECIMENOrdering Facility: [facility] Address: [address] Performed By: #### 1 239, ####[facility] LABCLIA [id number] [place] [address] [place] CO2 [Moles/Vol] 23 mmol/L Normal 22-30 [facility] Comment on above: Order Comment: Speci men Type: BLOOD SPECIMENOrdering Facility: [facility] Address: [address] [place] [address] Performed By: #### 1 9123-04, ####[facility] LABIA [id number] [place] [address] [place] Creatinine [Mass/Vol] 0.71 mg/dL Normal 0.58-0.96 [facility] Comment on above: Order Comment: Speci men Type: BLOOD SPECIMENOrdering Facility: [facility] Address: [address] [place] [address] Performed By: #### 1 91, ####[facility] LABIA [id number] [place] [address] [place] ESTIMATED GLOMERULAR FILTRATION RATE 125 mL/min/1.73m??? Normal >=60 [facility] Comment on above: Order Comment: Speci men Type: BLOOD SPECIMENOrdering Facility: [facility] Address: [address] [place] [address] Result Comment: Zeynep mated Glomerular Filtration Rate (eGFR) is calculated using the 2020 CKD-EPI creatinine equation. This equation utilizes serum creatinine, sex, and age as parameters. The creatinine assay has traceable calibration to isotope dilution-mass spectrometry. Refer to KDIGO guidelines for clinical interpretation. In patients with unstable renal function, e.g. those with acute kidney injury, the eGFR may not accurately reflect actual GFR. Performed By: #### 1 9123-9, ####[facility] LABIA [id number] [place] [address] [place] Glucose [Mass/Vol] 123 mg/dL High 74-99 [facility] Comment on above: Order Comment: Tank rao Type: BLOOD SPECIMENOrdering Facility: [facility] Address: [address] [id number] Result Comment: The [place] Diabetes Association (ADA) provides guidance for cutoff values for fasting glucose and random glucose. The ADA defines fasting as no caloric intake for at least 8 hours. Fasting plasma glucose results between 100 to 125 mg/dL indicate increased risk for diabetes (prediabetes).Fasting plasma glucose results greater than or equal to 126 mg/dL meet the criteria for diagnosis of diabetes. In the absence of unequivocal hyperglycemia, results should be confirmed by repeat testing. In a patient with classic symptoms of hyperglycemia or hyperglycemic crisis, random plasma glucose results greater than or equal to 200 mg/dL meet the criteria for diagnosis of diabetes.Reference: Standards of Medical Care in Diabetes 2016, [place] [employer]. Diabetes Care. 2016.39(Suppl 1). Performed By: #### 1 9123-9, 30205-4 ####[facility] LABCLIA [id number] [place] [address] [place] Phosphate [Mass/Vol] 2.7 mg/dL Normal 2.7-4.8 [facility] Comment on above: Order Comment: Tank rao Type: BLOOD SPECIMENOrdering Facility: [facility] Address: [address] [phone] Performed By: #### 1 9123-9, 65305-8 ####[facility] LABCLIA [id number] [place] [address] [place] Potassium [Moles/Vol] 4.0 mmol/L Normal 3.7-5.1 [facility] Comment on above: Order Comment: Tank rao Type: BLOOD SPECIMENOrdering Facility: [facility] Address: [address] [phone] Performed By: #### 1 9123-9, 84802-5 ####[facility] LABCLIA [id number] [address] [id number] [place] Sodium [Moles/Vol] 138 mmol/L Normal 136-144 [facility] Comment on above: Order Comment: Speci men Type: BLOOD SPECIMENOrdering Facility: [facility] Address: [address] [address] Performed By: #### 1 9123-9, 31614-8 ####[facility] LABCLIA [id number] [place] [address] [place] Urea nitrogen [Mass/Vol] 13 mg/dL Normal 7-21 [facility] Comment on above: Order Comment: Speci men Type: BLOOD SPECIMENOrdering Facility: [facility] Address: [address] [place] [address] Performed By: #### 1 9123-9, 65721-8 ####[facility] LABCLIA [id number] [place] [address] [place] CBC W Auto Differential pane l (Bld)on 01-28-2023 Basophils (Bld) [#/Vol] 10*3/uL Normal <0.11 [facility] Comment on above: Order Comment: Speci men Type: BLOOD SPECIMENOrdering Facility: [facility] Address: [address] [place] [address] Performed By: #### 5 7021-8 ####[facility] LABCLIA [id number] [place] [address] [place] Basophils/100 WBC (Bld) 0.0 % Normal [facility] Comment on above: Order Comment: Speci men Type: BLOOD SPECIMENOrdering Facility: [facility] Address: [address] [address] Performed By: #### 5 7021-8 ####[facility] LABCLIA [id number] [place] [address] [place] Differential cell count method Nom (Bld) Auto Normal [facility] Comment on above: Order Comment: Speci men Type: BLOOD SPECIMENOrdering Facility: [facility] Address: [address] [place] [address] Performed By: #### 5 7021-8 ####[facility] LABCLIA [id number] [place] [address] [place] Eosinophils (Bld) [#/Vol] 10*3/uL Normal <0.46 [facility] Comment on above: Order Comment: Speci men Type: BLOOD SPECIMENOrdering Facility: [facility] Address: [address] [place], [place] [address] Performed By: #### 5 7021-8 ####[facility] LABCLIA [id number] [place] [address] [place] Eosinophils/100 WBC (Bld) 0.0 % Normal [facility] Comment on above: Order Comment: Speci men Type: BLOOD SPECIMENOrdering Facility: [facility] Address: [address] [place], [place] [address] Performed By: #### 5 7021-8 ####[facility] LABCLIA [id number] [place] [address] [place] Erythrocyte distribution width (RBC) [Ratio] 13.2 % Normal 11.5-15.0 [facility] Comment on above: Order Comment: Speci men Type: BLOOD SPECIMENOrdering Facility: [facility] Address: [address] [place], [place] [address] Performed By: #### 5 7021-8 ####[facility] LABCLIA [id number] [place] [address] [place] Hematocrit (Bld) [Volume fraction] 32.7 % Low 36.0-46.0 [facility] Comment on above: Order Comment: Speci men Type: BLOOD SPECIMENOrdering Facility: [facility] Address: [address] [place], [place] [address] Performed By: #### 5 7021-8 ####[facility] LABCLIA [id number] [place] [address] [place] Hemoglobin (Bld) [Mass/Vol] 10.8 g/dL Low 11.5-15.5 [facility] Comment on above: Order Comment: Speci men Type: BLOOD SPECIMENOrdering Facility: [facility] Address: [address] [place] [address] Performed By: #### 5 7021-8 ####[facility] LABCLIA [id number] [place] [address] [place] Immature granulocytes (Bld) [#/Vol] 0.07 10*3/uL Normal <0.10 [facility] Comment on above: Order Comment: Speci men Type: BLOOD SPECIMENOrdering Facility: [facility] Address: [address] [place] [address] Performed By: #### 5 7021-8 ####[facility] LABCLIA [id number] [address] [place] Immature granulocytes/100 WBC (Bld) 0.6 % Normal [facility] Comment on above: Order Comment: Speci men Type: BLOOD SPECIMENOrdering Facility: [facility] Address: [address] [place], [place] [address] Performed By: #### 5 7021-8 ####[facility] LABCLIA [id number] [place] [address] [place] Lymphocytes (Bld) [#/Vol] 0.76 10*3/uL Low 1.00-4.00 [facility] Comment on above: Order Comment: Speci men Type: BLOOD SPECIMENOrdering Facility: [facility] Address: [address] [place], [place] [address] Performed By: #### 5 7021-8 ####[facility] LABCLIA [id number] [place] [address] [place] Lymphocytes/100 WBC (Bld) 7.0 % Normal [facility] Comment on above: Order Comment: Speci men Type: BLOOD SPECIMENOrdering Facility: [facility] Address: [address] [address] Performed By: #### 5 7021-8 ####[facility] LABCLIA [id number] [address] MCH (RBC) [Entitic mass] 29.9 pg Normal 26.0-34.0 [facility] Comment on above: Order Comment: Speci men Type: BLOOD SPECIMENOrdering Facility: [facility] Address: [address] [address] Performed By: #### 5 7021-8 ####[facility] LABIA [id number] [address] [place] [facility] MCHC (RBC) [Mass/Vol] 33.0 g/dL Normal 30.5-36.0 [facility] Comment on above: Order Comment: Speci men Type: BLOOD SPECIMENOrdering Facility: [facility] Address: [address] [place], [place] [address] Performed By: #### 5 7021-8 ####[facility] LABIA [id number] [address] [place] [facility] MCV (RBC) [Entitic vol] 90.6 fL Normal 80.0-100.0 [facility] Comment on above: Order Comment: Speci men Type: BLOOD SPECIMENOrdering Facility: [facility] Address: [address] [place], [place] [address] Performed By: #### 5 7021-8 ####[facility] LABIA [id number] [place] [address] [place] [facility] [place] Monocytes (Bld) [#/Vol] 0.60 10*3/uL Normal <0.87 [facility] Comment on above: Order Comment: Speci men Type: BLOOD SPECIMENOrdering Facility: [facility] Address: [address] [place], [place] [address] Performed By: #### 5 7021-8 ####[facility] LABCLIA [id number] [place] [address] [place] Monocytes/100 WBC (Bld) 5.5 % Normal [facility] Comment on above: Order Comment: Speci men Type: BLOOD SPECIMENOrdering Facility: [facility] Address: [address] [place] [address] Performed By: #### 5 7021-8 ####[facility] LABCLIA [id number] [place] [address] [place] Neutrophils (Bld) [#/Vol] 9.49 10*3/uL High 1.45-7.50 [facility] Comment on above: Order Comment: Speci men Type: BLOOD SPECIMENOrdering Facility: [facility] Address: [address] [place] [address] Performed By: #### 5 7021-8 ####[facility] LABCLIA [id number] [place] [address] [place] Neutrophils/100 WBC (Bld) 86.9 % Normal [facility] Comment on above: Order Comment: Speci men Type: BLOOD SPECIMENOrdering Facility: [facility] Address: [address] [place] [address] Performed By: #### 5 7021-8 ####[facility] LABCLIA [id number] [place] [address] [place] Nucleated RBC (Bld) [#/Vol] 10*3/uL Normal <0.01 [facility] Comment on above: Order Comment: Speci men Type: BLOOD SPECIMENOrdering Facility: [facility] Address: [address] [place], [place] [address] Performed By: #### 5 7021-8 ####[facility] LABCLIA [id number] [place] [address] [place] Nucleated RBC/100 WBC (Bld) [Ratio] 0.0 /100 WBC Normal [facility] Comment on above: Order Comment: Speci men Type: BLOOD SPECIMENOrdering Facility: [facility] Address: [address] [place], [place] [address] Performed By: #### 5 7021-8 ####[facility] LABCLIA [id number] [place] [address] [place] Platelet mean volume (Bld) [Entitic vol] 11.9 fL Normal 9.0-12.7 [facility] Comment on above: Order Comment: Speci men Type: BLOOD SPECIMENOrdering Facility: [facility] Address: [address] [place], [place] [address] Performed By: #### 5 7021-8 ####[facility] LABIA [id number] [place] [address] [place] Platelets (Bld) [#/Vol] 160 10*3/uL Normal 150-400 [facility] Comment on above: Order Comment: Speci men Type: BLOOD SPECIMENOrdering Facility: [facility] Address: [address] [place], [place] [address] Performed By: #### 5 7021-8 ####[facility] LABIA [id number] [place] [address] [place] RBC (Bld) [#/Vol] 3.61 10*6/uL Low 3.90-5.20 [facility] Comment on above: Order Comment: Speci men Type: BLOOD SPECIMENOrdering Facility: [facility] Address: [address] [place], [place] [address] Performed By: #### 5 7021-8 ####[facility] LABIA [id number] [place] [address] [place] WBC (Bld) [#/Vol] 10.92 10*3/uL Normal 3.70-11.00 [facility] Comment on above: Order Comment: Speci men Type: BLOOD SPECIMENOrdering Facility: [facility] Address: [address] Performed By: #### 5 7021-8 ####[facility] LABCLIA [id number] [place] [address] [place] Magnesium SerPl-mCncon 01-28 Magnesium [Mass/Vol] 2.0 mg/dL Normal 1.7-2.3 [facility] Comment on above: Order Comment: Speci men Type: BLOOD SPECIMENOrdering Facility: [facility] Address: [address] Performed By: #### 1 9123-9, 53788-5 ####[facility] LABIA [id number] [place] [address] [place] Renal function 2000 panel 01-28-2023 Albumin [Mass/Vol] 4.1 g/dL Normal 3.9-4.9 [facility] Comment on above: Order Comment: Speci men Type: BLOOD SPECIMENOrdering Facility: [facility] Address: [address] Performed By: #### 1 9123-9, 47398-7 ####[facility] LABIA [id number] [place] [address] [place] Anion gap [Moles/Vol] 11 mmol/L Normal 9-18 [facility] [facility] Comment on above: Order Comment: Speci men Type: BLOOD SPECIMENOrdering Facility: [facility] Address: [address] Performed By: #### 1 9123-9, 72746-8 ####[facility] LABIA [id number] [place] [address] [place] Calcium [Mass/Vol] 9.2 mg/dL Normal 8.5-10.2 [facility] Comment on above: Order Comment: Speci men Type: BLOOD SPECIMENOrdering Facility: [facility] Address: [address] Performed By: #### 1 9123-9, 86551-3 ####[facility] LABCLIA [id number] [place] [address] [place] Chloride [Moles/Vol] 101 mmol/L Normal 97-105 [facility] Comment on above: Order Comment: Speci men Type: BLOOD SPECIMENOrdering Facility: [facility] Address: [address] [place] [address] Performed By: #### 1 9123-9, 95863-0 ####[facility] LABCLIA [id number] [place] [address] [place] CO2 [Moles/Vol] 23 mmol/L Normal 22-30 [facility] Comment on above: Order Comment: Speci men Type: BLOOD SPECIMENOrdering Facility: [facility] Address: [address] [place] [address] Performed By: #### 1 9123-9, 80158-5 ####[facility] LABCLIA [id number] [place] [address] [place] Creatinine [Mass/Vol] 0.70 mg/dL Normal 0.58-0.96 [facility] Comment on above: Order Comment: Speci men Type: BLOOD SPECIMENOrdering Facility: [facility] Address: [address] [place] [address] Performed By: #### 1 9123-9, 26808-3 ####[facility] LABIA [id number] [place] [address] [place] ESTIMATED GLOMERULAR FILTRATION RATE 127 mL/min/1.73m??? Normal >=60 [facility] Comment on above: Order Comment: Speci men Type: BLOOD SPECIMENOrdering Facility: [facility] Address: [address] [place] [address] Result Comment: Zeynep mated Glomerular Filtration Rate (eGFR) is calculated using the 2020 CKD-EPI creatinine equation. This equation utilizes serum creatinine, sex, and age as parameters. The creatinine assay has traceable calibration to isotope dilution-mass spectrometry. Refer to KDIGO guidelines for clinical interpretation. In patients with unstable renal function, e.g. those with acute kidney injury, the eGFR may not accurately reflect actual GFR. Performed By: #### 1 9123-9, 08099-6 ####[facility] LABCLIA [id number] [employer] [facility] [address] [address] [place] Glucose [Mass/Vol] 137 mg/dL High 74-99 [facility] Comment on above: Order Comment: Tank rao Type: BLOOD SPECIMENOrdering Facility: [facility] Address: [address] [place] [id number] Result Comment: The [place] Diabetes Association (ADA) provides guidance for cutoff values for fasting glucose and random glucose. The ADA defines fasting as no caloric intake for at least 8 hours. Fasting plasma glucose results between 100 to 125 mg/dL indicate increased risk for diabetes (prediabetes).Fasting plasma glucose results greater than or equal to 126 mg/dL meet the criteria for diagnosis of diabetes. In the absence of unequivocal hyperglycemia, results should be confirmed by repeat testing. In a patient with classic symptoms of hyperglycemia or hyperglycemic crisis, random plasma glucose results greater than or equal to 200 mg/dL meet the criteria for diagnosis of diabetes.Reference: Standards of Medical Care in Diabetes 2016, [place] Diabetes Association. Diabetes Care. 2016.39(Suppl 1). Performed By: #### 1 9123-9, 75637-8 ####[facility] LABCLIA [id number] [facility] [place] [id number] [place] Phosphate [Mass/Vol] 2.2 mg/dL Low 2.7-4.8 [facility] Comment on above: Order Comment: Tank rao Type: BLOOD SPECIMENOrdering Facility: [facility] Address: [address] [place] [address] Performed By: #### 1 9123-9, 68736-0 ####[facility] LABCLIA [id number] [facility] [address] [address] [place] Potassium [Moles/Vol] 3.8 mmol/L Normal 3.7-5.1 [facility] Comment on above: Order Comment: Speci men Type: BLOOD SPECIMENOrdering Facility: [facility] Address: [address] [place], [place] [address] Performed By: #### 1 9123-9, 98496-1 ####[facility] LABCLIA [id number] [place] [address] [place] Sodium [Moles/Vol] 135 mmol/L Low 136-144 [facility] Comment on above: Order Comment: Speci men Type: BLOOD SPECIMENOrdering Facility: [facility] Address: [address] [place] [address] Performed By: #### 1 9123-9, 90819-4 ####[facility] LABCLIA [id number] [place] [address] [place] Urea nitrogen [Mass/Vol] 9 mg/dL Normal 7-21 [facility] Comment on above: Order Comment: Speci men Type: BLOOD SPECIMENOrdering Facility: [facility] Address: [address] [place] [address] Performed By: #### 1 9123-9, 80855-2 ####[facility] LABIA [id number] [place] [address] [place] CASE MGT INIT ASSESon 2022 CASE MGT INIT ASSES Normal [facility] CBC W Auto Differential pane l (Bld)on 01-27-2023 Basophils (Bld) [#/Vol] 10*3/uL Normal <0.11 [facility] Comment on above: Order Comment: Speci men Type: BLOOD SPECIMENOrdering Facility: [facility] Address: [address] [place] [address] Performed By: #### 5 7021-8 ####[facility] LABCLIA [id number] [address] [id number], [place] [address] [place] Basophils/100 WBC (Bld) 0.1 % Normal [facility] Comment on above: Order Comment: Speci men Type: BLOOD SPECIMENOrdering Facility: [facility] Address: [address] Performed By: #### 5 7021-8 ####[facility] LABCLIA [id number] [place] [address] [place] Differential cell count method Nom (Bld) Auto Normal [facility] Comment on above: Order Comment: Speci men Type: BLOOD SPECIMENOrdering Facility: [facility] Address: [address] [place], [place] [address] Performed By: #### 5 7021-8 ####[facility] LABCLIA [id number] [place] [address] [place] Eosinophils (Bld) [#/Vol] 10*3/uL Normal <0.46 [facility] Comment on above: Order Comment: Speci men Type: BLOOD SPECIMENOrdering Facility: [facility] Address: [address] [place], [place] [address] Performed By: #### 5 7021-8 ####[facility] LABCLIA [id number] [address] [place] Eosinophils/100 WBC (Bld) 0.0 % Normal [facility] Comment on above: Order Comment: Speci men Type: BLOOD SPECIMENOrdering Facility: [facility] Address: [address] [place], [place] [address] Performed By: #### 5 7021-8 ####[facility] LABCLIA [id number] [place] [address] [place] Erythrocyte distribution width (RBC) [Ratio] 13.2 % Normal 11.5-15.0 [facility] Comment on above: Order Comment: Speci men Type: BLOOD SPECIMENOrdering Facility: [facility] Address: [address] [place], [place] [address] Performed By: #### 5 7021-8 ####[facility] LABIA [id number] [place] [address] [place] Hematocrit (Bld) [Volume fraction] 33.7 % Low 36.0-46.0 [facility] Comment on above: Order Comment: Speci men Type: BLOOD SPECIMENOrdering Facility: [facility] Address: [address] [place] [address] Performed By: #### 5 7021-8 ####[facility] LABIA [id number] [place] [address] [place] Hemoglobin (Bld) [Mass/Vol] 11.3 g/dL Low 11.5-15.5 [facility] Comment on above: Order Comment: Speci men Type: BLOOD SPECIMENOrdering Facility: [facility] Address: [address] [place] [address] Performed By: #### 5 7021-8 ####[facility] LABIA [id number] [place] [address] [place] Immature granulocytes (Bld) [#/Vol] 0.06 10*3/uL Normal <0.10 [facility] Comment on above: Order Comment: Speci men Type: BLOOD SPECIMENOrdering Facility: [facility] Address: [address] [place], [place] [address] Performed By: #### 5 7021-8 ####[facility] LABIA [id number] [place] [address] [place] Immature granulocytes/100 WBC (Bld) 0.5 % Normal [facility] Comment on above: Order Comment: Speci men Type: BLOOD SPECIMENOrdering Facility: [facility] Address: [address] [place] [address] Performed By: #### 5 7021-8 ####[facility] LABIA [id number] [place] [address] [place] Lymphocytes (Bld) [#/Vol] 0.77 10*3/uL Low 1.00-4.00 [facility] Comment on above: Order Comment: Speci men Type: BLOOD SPECIMENOrdering Facility: [facility] Address: [address] [place] [address] Performed By: #### 5 7021-8 ####[facility] LABCLIA [id number] [address] [place] Lymphocytes/100 WBC (Bld) 6.4 % Normal [facility] Comment on above: Order Comment: Speci men Type: BLOOD SPECIMENOrdering Facility: [facility] Address: [address] [place] [address] Performed By: #### 5 7021-8 ####[facility] LABCLIA [id number] [place] [address] [place] MCH (RBC) [Entitic mass] 30.1 pg Normal 26.0-34.0 [facility] Comment on above: Order Comment: Speci men Type: BLOOD SPECIMENOrdering Facility: [facility] Address: [address] [place] [address] Performed By: #### 5 7021-8 ####[facility] LABCLIA [id number] [address] [place] MCHC (RBC) [Mass/Vol] 33.5 g/dL Normal 30.5-36.0 [facility] Comment on above: Order Comment: Speci men Type: BLOOD SPECIMENOrdering Facility: [facility] Address: [address] [place], [place] [address] Performed By: #### 5 7021-8 ####[facility] LABCLIA [id number] [place] [address] [place] MCV (RBC) [Entitic vol] 89.6 fL Normal 80.0-100.0 [facility] Comment on above: Order Comment: Speci men Type: BLOOD SPECIMENOrdering Facility: [facility] Address: [address] Performed By: #### 5 7021-8 ####[facility] LABCLIA [id number] [place] [address] [place] Monocytes (Bld) [#/Vol] 1.00 10*3/uL High <0.87 [facility] Comment on above: Order Comment: Speci men Type: BLOOD SPECIMENOrdering Facility: [facility] Address: [address] Performed By: #### 5 7021-8 ####[facility] LABCLIA [id number] [address] [place] Monocytes/100 WBC (Bld) 8.3 % Normal [facility] Comment on above: Order Comment: Speci men Type: BLOOD SPECIMENOrdering Facility: [facility] Address: [address] [place], [place] [address] Performed By: #### 5 7021-8 ####[facility] LABCLIA [id number] [place] [address] [place] Neutrophils (Bld) [#/Vol] 10.15 10*3/uL High 1.45-7.50 [facility] Comment on above: Order Comment: Speci men Type: BLOOD SPECIMENOrdering Facility: [facility] Address: [address] [place], [place] [address] Performed By: #### 5 7021-8 ####[facility] LABCLIA [id number] [address] [place] Neutrophils/100 WBC (Bld) 84.7 % Normal [facility] Comment on above: Order Comment: Speci men Type: BLOOD SPECIMENOrdering Facility: [facility] Address: [address] [place], [place] [address] Performed By: #### 5 7021-8 ####[facility] LABCLIA [id number] [place] [address] [place] Nucleated RBC (Bld) [#/Vol] 10*3/uL Normal <0.01 [facility] Comment on above: Order Comment: Speci men Type: BLOOD SPECIMENOrdering Facility: [facility] Address: [address] [place] [address] Performed By: #### 5 7021-8 ####[facility] LABCLIA [id number] [place] [address] [place] Nucleated RBC/100 WBC (Bld) [Ratio] 0.0 /100 WBC Normal [facility] Comment on above: Order Comment: Speci men Type: BLOOD SPECIMENOrdering Facility: [facility] Address: [address] [place] [address] Performed By: #### 5 7021-8 ####[facility] LABIA [id number] [place] [address] [place] Platelet mean volume (Bld) [Entitic vol] 11.7 fL Normal 9.0-12.7 [facility] Comment on above: Order Comment: Speci men Type: BLOOD SPECIMENOrdering Facility: [facility] Address: [address] [place], [place] [address] Performed By: #### 5 7021-8 ####[facility] LABIA [id number] [place] [address] [place] Platelets (Bld) [#/Vol] 163 10*3/uL Normal 150-400 [facility] Comment on above: Order Comment: Speci men Type: BLOOD SPECIMENOrdering Facility: [facility] Address: [address] [place], [place] [address] Performed By: #### 5 7021-8 ####[facility] LABCLIA [id number] [place] [address] [place] RBC (Bld) [#/Vol] 3.76 10*6/uL Low 3.90-5.20 [facility] Comment on above: Order Comment: Speci men Type: BLOOD SPECIMENOrdering Facility: [facility] Address: [address] [place], [place] [address] Performed By: #### 5 7021-8 ####[facility] LABCLIA [id number] [place] [address] [place] WBC (Bld) [#/Vol] 11.99 10*3/uL High 3.70-11.00 [facility] Comment on above: Order Comment: Speci men Type: BLOOD SPECIMENOrdering Facility: [facility] Address: [address] [place], [place] [address] Performed By: #### 5 7021-8 ####[facility] LABCLIA [id number] [place] [address] [place] CNPNon 01-27-2023 CNPN Normal [facility] Magnesium SerPl-mCncon 01-27 Magnesium [Mass/Vol] 1.7 mg/dL Normal 1.7-2.3 [facility] Comment on above: Order Comment: Speci men Type: BLOOD SPECIMENOrdering Facility: [facility] Address: [address] [place], [place] [address] Performed By: #### 1 9123-9, 91733-5 ####[facility] LABCLIA [id number] [place] [address] [place] Renal function 2000 panelon 01-27-2023 Albumin [Mass/Vol] 3.7 g/dL Low 3.9-4.9 [facility] Comment on above: Order Comment: Speci men Type: BLOOD SPECIMENOrdering Facility: [facility] Address: [address] [place], [place] [address] Performed By: #### 1 9123-9, 08801-4 ####[facility] LABCLIA [id number] [place] [address] [place] Anion gap [Moles/Vol] 11 mmol/L Normal 9-18 [facility] Comment on above: Order Comment: Speci men Type: BLOOD SPECIMENOrdering Facility: [facility] Address: [address] [place] [address] Performed By: #### 1 9123-9, 00950-9 ####[facility] LABCLIA [id number] [place] [address] [place] Calcium [Mass/Vol] 8.6 mg/dL Normal 8.5-10.2 [facility] Comment on above: Order Comment: Speci men Type: BLOOD SPECIMENOrdering Facility: [facility] Address: [address] [place] [address] Performed By: #### 1 9123-9, 09898-5 ####[facility] LABCLIA [id number] [place] [address] [place] Chloride [Moles/Vol] 108 mmol/L High 97-105 [facility] Comment on above: Order Comment: Speci men Type: BLOOD SPECIMENOrdering Facility: [facility] Address: [address] [place], [place] [address] Performed By: #### 1 9123-9, ####[facility] LABCLIA [id number] [place] [address] [place] CO2 [Moles/Vol] 20 mmol/L Low 22-30 [facility] Comment on above: Order Comment: Speci men Type: BLOOD SPECIMENOrdering Facility: [facility] Address: [address] [place], [place] [address] Performed By: #### 1 9123-9, 08651-5 ####[facility] LABCLIA [id number] [place] [address] [place] Creatinine [Mass/Vol] 0.65 mg/dL Normal 0.58-0.96 [facility] Comment on above: Order Comment: Speci men Type: BLOOD SPECIMENOrdering Facility: [facility] Address: [address] [place] [address] Performed By: #### 1 9123-9, 10814-3 ####[facility] LABCLIA [id number] [place] [address] [place] ESTIMATED GLOMERULAR FILTRATION RATE 129 mL/min/1.73m??? Normal >=60 [facility] Comment on above: Order Comment: Tank rao Type: BLOOD SPECIMENOrdering Facility: [facility] Address: [address] [place] [address] Result Comment: Zeynep mated Glomerular Filtration Rate (eGFR) is calculated using the 2020 CKD-EPI creatinine equation. This equation utilizes serum creatinine, sex, and age as parameters. The creatinine assay has traceable calibration to isotope dilution-mass spectrometry. Refer to KDIGO guidelines for clinical interpretation. In patients with unstable renal function, e.g. those with acute kidney injury, the eGFR may not accurately reflect actual GFR. Performed By: #### 1 9123-9, 82007-7 ####[facility] LABCLIA [id number] [place] [address] [place] Glucose [Mass/Vol] 119 mg/dL High 74-99 [facility] Comment on above: Order Comment: Tank rao Type: BLOOD SPECIMENOrdering Facility: [facility] Address: [address] [place] [address] Result Comment: The [place] Diabetes Association (ADA) provides guidance for cutoff values for fasting glucose and random glucose. The ADA defines fasting as no caloric intake for at least 8 hours. Fasting plasma glucose results between 100 to 125 mg/dL indicate increased risk for diabetes (prediabetes).Fasting plasma glucose results greater than or equal to 126 mg/dL meet the criteria for diagnosis of diabetes. In the absence of unequivocal hyperglycemia, results should be confirmed by repeat testing. In a patient with classic symptoms of hyperglycemia or hyperglycemic crisis, random plasma glucose results greater than or equal to 200 mg/dL meet the criteria for diagnosis of diabetes.Reference: Standards of Medical Care in Diabetes 2016, [place] Diabetes Association. Diabetes Care. 2016.39(Suppl 1). Performed By: #### 1 9123-9, ####[facility] LABCLIA [id number] [place] [address] [place] Phosphate [Mass/Vol] 2.6 mg/dL Low 2.7-4.8 [facility] Comment on above: Order Comment: Speci men Type: BLOOD SPECIMENOrdering Facility: [facility] Address: [address] Performed By: #### 1 [address], ####[facility] LABCLIA [id number] [place] [address] [place] Potassium [Moles/Vol] 3.9 mmol/L Normal 3.7-5.1 [facility] Comment on above: Order Comment: Speci men Type: BLOOD SPECIMENOrdering Facility: [facility] Address: [address] [place], [place] [address] Performed By: #### 1 919, ####[facility] LABIA [id number] [place] [address] [place] Sodium [Moles/Vol] 139 mmol/L Normal 136-144 [facility] Comment on above: Order Comment: Speci men Type: BLOOD SPECIMENOrdering Facility: [facility] Address: [address] Performed By: #### 1 [address], ####[facility] LABCLIA [id number] [place] [address] [place] Urea nitrogen [Mass/Vol] 6 mg/dL Low 7-21 [facility] Comment on above: Order Comment: Speci men Type: BLOOD SPECIMENOrdering Facility: [facility] Address: [address] Performed By: #### 1 9123-9, 82549-2 ####[facility] LABCLIA [id number] [place] [address] [place] THERAPY NTon 01-27-2023 THERAPY NT Normal [facility] THERAPY NT Normal [facility] ANES POSTPROC EVALon 023 ANES POSTPROC EVAL Normal [facility] ANES PRE-OPon 01-26-2023 ANES PRE-OP Normal [facility] ARTERIAL BLOOD GASES WITH IO NIZED MAGNESIUMon 01-26-2023 Base deficit (BldA) [Moles/Vol] -4 mmol/L Low -2-0 [facility] Comment on above: Order Comment: Speci men Type: ARTERIAL BLOOD SPECIMENOrdering Facility: [facility] Address: [address] [place] [address] Performed By: #### A LLMG ####[facility] LABIA [id number] [place] [address] [place] Calcium.ionized (Bld) [Mass/Vol] 1.15 mmol/L Normal 1.08-1.30 [facility] Comment on above: Order Comment: Speci men Type: ARTERIAL BLOOD SPECIMENOrdering Facility: [facility] Address: [address] [place] [address] Performed By: #### A LLMG ####[facility] [id number] [place] [address] [place] Calcium.ionized adjusted to pH 7.4 (BldA) [Moles/Vol] 1.17 mmol/L Normal 1.08-1.30 [facility] Comment on above: Order Comment: Speci men Type: ARTERIAL BLOOD SPECIMENOrdering Facility: [facility] Address: [address] [place], [place] [address] Performed By: #### A LLMG ####[facility] LABIA [id number] [place] [address] [place] Carboxyhemoglobin (BldA) [Mass fraction] 1.2 % Normal 0.0-2.0 [facility] Comment on above: Order Comment: Speci men Type: ARTERIAL BLOOD SPECIMENOrdering Facility: [facility] Address: [address] Result Comment: Carb oxyhemoglobin Reference Range for Smokers: 2.0-8.0% Performed By: #### A LLMG ####[facility] LABCLIA [id number] [address] [place] CO2 (Bld) [Partial pressure] 29 mm Hg Low 36-46 [facility] Comment on above: Order Comment: Speci men Type: ARTERIAL BLOOD SPECIMENOrdering Facility: [facility] Address: [address] [place] [address] Performed By: #### A LLMG ####[facility] LABCLIA [id number] [place] [address] [place] CO2 [Moles/Vol] 20 mmol/L Low 22-28 [facility] Comment on above: Order Comment: Speci men Type: ARTERIAL BLOOD SPECIMENOrdering Facility: [facility] Address: [address] Performed By: #### A LLMG ####[facility] LABCLIA [id number] [place] [address] [place] CO2 adjusted to patient's actual temperature (Bld) [Partial pressure] 29 mmHg Low 36-46 [facility] Comment on above: Order Comment: Speci men Type: ARTERIAL BLOOD SPECIMENOrdering Facility: [facility] Address: [address] Performed By: #### A LLMG ####[facility] LABCLIA [id number] [place] [address] [place] Glucose [Mass/Vol] 127 mg/dL High 60-105 [facility] Comment on above: Order Comment: Speci men Type: ARTERIAL BLOOD SPECIMENOrdering Facility: [facility] Address: [address] Performed By: #### A LLMG ####[facility] LABCLIA [id number] [place] [address] [place] HCO3 (Bld) [Moles/Vol] 19 mmol/L Low 22-26 [facility] Comment on above: Order Comment: Speci men Type: ARTERIAL BLOOD SPECIMENOrdering Facility: [facility] Address: [address] [place] [address] Performed By: #### A LLMG ####[facility] LABIA [id number] [place] [address] [place] Hematocrit (Bld) [Volume fraction] 35.4 % Low 36.0-46.0 [facility] Comment on above: Order Comment: Speci men Type: ARTERIAL BLOOD SPECIMENOrdering Facility: [facility] Address: [address] [place] [address] Performed By: #### A LLMG ####[facility] LABIA [id number] [address] [place] Hemoglobin (Bld) [Mass/Vol] 11.5 g/dL Normal 11.5-15.5 [facility] Comment on above: Order Comment: Speci men Type: ARTERIAL BLOOD SPECIMENOrdering Facility: [facility] Address: [address] [place] [address] Performed By: #### A LLMG ####[facility] LABIA [id number] [place] [address] [place] Lactate [Moles/Vol] 1.0 mmol/L Normal 0.5-2.2 [facility] Comment on above: Order Comment: Speci men Type: ARTERIAL BLOOD SPECIMENOrdering Facility: [facility] Address: [address] [place], [place] [address] Performed By: #### A LLMG ####[facility] LABIA [id number] [place] [address] [place] Magnesium [Moles/Vol] 0.49 mmol/L Normal 0.45-0.60 [facility] Comment on above: Order Comment: Speci men Type: ARTERIAL BLOOD SPECIMENOrdering Facility: [facility] Address: [address] Performed By: #### A LLMG ####[facility] LABCLIA [id number] [place] [address] [place] Methemoglobin (Bld) [Mass fraction] 1.7 % High 0.0-1.5 [facility] Comment on above: Order Comment: Speci men Type: ARTERIAL BLOOD SPECIMENOrdering Facility: [facility] Address: [address] Performed By: #### A LLMG ####[facility] LABIA [id number] [place] [address] [place] Oxygen (Bld) [Partial pressure] 214 mm Hg High 85-95 [facility] Comment on above: Order Comment: Speci men Type: ARTERIAL BLOOD SPECIMENOrdering Facility: [facility] Address: [address] Performed By: #### A LLMG ####[facility] LABCLIA [id number] [place] [address] [place] Oxygen adjusted to patient's actual temperature (Bld) [Partial pressure] 214 mmHg High 85-95 [facility] Comment on above: Order Comment: Speci men Type: ARTERIAL BLOOD SPECIMENOrdering Facility: [facility] Address: [address] [place] [address] Performed By: #### A LLMG ####[facility] LABIA [id number] [place] [address] [place] Oxyhemoglobin (BldA) [Mass fraction] 97 % Normal 95-98 [facility] Comment on above: Order Comment: Speci men Type: ARTERIAL BLOOD SPECIMENOrdering Facility: [facility] Address: [address] Performed By: #### A LLMG ####[facility] LABCLIA [id number] [place] [address] [place] pH (Bld) 7.43 [pH] Normal 7.35-7.45 [facility] Comment on above: Order Comment: Speci men Type: ARTERIAL BLOOD SPECIMENOrdering Facility: [facility] Address: [address] [place], [place] [address] Performed By: #### A LLMG ####[facility] LABIA [id number] [place] [address] [place] pH adjusted to patient's actual temperature (Bld) 7.43 Normal 7.35-7.45 [facility] Comment on above: Order Comment: Speci men Type: ARTERIAL BLOOD SPECIMENOrdering Facility: [facility] Address: [address] [place], [place] [address] Performed By: #### A LLMG ####[facility] LABIA [id number] [place] [address] [place] Potassium [Moles/Vol] 3.7 mmol/L Normal 3.5-5.0 [facility] Comment on above: Order Comment: Speci men Type: ARTERIAL BLOOD SPECIMENOrdering Facility: [facility] Address: [address] [place], [place] [address] Performed By: #### A LLMG ####[facility] LABIA [id number] [place] [address] [place] Sodium [Moles/Vol] 138 mmol/L Normal 136-144 [facility] Comment on above: Order Comment: Speci men Type: ARTERIAL BLOOD SPECIMENOrdering Facility: [facility] Address: [address] [place] [address] Performed By: #### A LLMG ####[facility] LABIA [id number] [place] [address] [place] BRIEF OP NOTon 01-26-2023 BRIEF OP NOT Normal [facility] CONSULTon 01-26-2023 CONSULT Normal [facility] CT BRAIN WO IVCONon 01-27-[address] BRAIN WO IVCON Normal [facility] OPERATIVE NOon 01-26-2023 OPERATIVE NO Normal [facility] SURGICAL PATHOLOGYon 023 CASE REPORT Normal [facility] Comment on above: Order Comment: Speci men Type: TISSUE SPECIMENOrdering Facility: [facility] Address: [address] [place] [address] Result Comment: Surg ical Pathology Report Case: [id number] Provider: Antonella David MD Collected: 01/26/2023 02:19 PMOrdering Location: Admitting Received: 01/26/2023 03:16 PMPathologist: MIGUEL Abbasipecimen: BRAIN RESECTION, D electrode tissue and region Performed By: #### S ####[facility] LABCLIA [id number] [address] OF [facility] CLINICAL HISTORY Normal [facility] Comment on above: Order Comment: Speci men Type: TISSUE SPECIMENOrdering Facility: [facility] Address: [address] [place] [address] Result Comment: Pre- op diagnosis:Partial symptomatic epilepsy with complex partial seizures, not intractable, 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 B rain, site not further specified, excision:- Fragments of benign brain parenchyma with mild focal perivascular chronic inflammation and focal gliosis.RAP/kr 01/30/2023 Performed By: #### S ####[facility] LABCLIA [id number] [place] [address] [place] FINAL PERFORMING LAB Normal [facility] Comment on above: Order Comment: Speci men Type: TISSUE SPECIMENOrdering Facility: [facility] Address: [address] [place] [address] Result Comment: Diag nostic interpretation performed at [facility], [facility] [address] CLIA# [id number] Director: Kody Bhandari M.D. Performed By: #### S ####[facility] LABCLIA [id number] [place] [address] [place] GROSS DESCRIPTION Normal [facility] Comment on above: Order Comment: Speci men Type: TISSUE SPECIMENOrdering Facility: [facility] Address: [address] [place] [address] Result Comment: A. B RAIN RESECTIONReceived fresh labeled with brain resection, D electrode tissue region are multiple irregular, unoriented fragments of white-pink soft tissue aggregating to 1.6 x 1.5 x 0.3 cm. The specimen is totally submitted intact in cassette A1.TLA January 26, 2023 3:29 PMGross examination performed at [facility], [address] [place] [address] Performed By: #### S ####[facility] LABCLIA [id number] [place] [address] [place] TYPE AND SCREEN,30 DAYon ABO A Normal [facility] Comment on above: Order Comment: Speci men Type: BLOOD SPECIMENOrdering Facility: [facility] Address: [address] [place] [address] Performed By: #### T SCR30 ####[facility] BLOOD BANKCLIA [id number] [place] [address] [place] HISTORICAL AB SCR STATUS Negative Normal [facility] Comment on above: Order Comment: Speci men Type: BLOOD SPECIMENOrdering Facility: [facility] Address: [address] [place] [address] Performed By: #### T SCR30 ####[facility] BLOOD BANKCLIA [id number] [address] [place] Rh Nom (Bld) Positive Normal [facility] Comment on above: Order Comment: Speci men Type: BLOOD SPECIMENOrdering Facility: [facility] Address: [address] Performed By: #### T SCR30 ####[facility] BLOOD BANKCLIA [id number] [address] [place] CBC panel Auto (Bld)on 01-24 Erythrocyte distribution width (RBC) [Ratio] 12.9 % Normal 11.5-15.0 [facility] Comment on above: Order Comment: Speci men Type: BLOOD SPECIMENOrdering Facility: [facility] Address: [address] [place] [address] Performed By: #### 5 8410-2 ####[facility] LABCLIA [id number] [place] [address] [place] Hematocrit (Bld) [Volume fraction] 42.7 % Normal 36.0-46.0 [facility] Comment on above: Order Comment: Speci men Type: BLOOD SPECIMENOrdering Facility: [facility] Address: [address] [place], [place] [address] Performed By: #### 5 8410-2 ####[facility] LABCLIA [id number] [place] [address] [place] Hemoglobin (Bld) [Mass/Vol] 13.4 g/dL Normal 11.5-15.5 [facility] Comment on above: Order Comment: Speci men Type: BLOOD SPECIMENOrdering Facility: [facility] Address: [address] Performed By: #### 5 8410-2 ####[facility] [id number] [place] [address] [place] MCH (RBC) [Entitic mass] 29.7 pg Normal 26.0-34.0 [facility] Comment on above: Order Comment: Speci men Type: BLOOD SPECIMENOrdering Facility: [facility] Address: [address] [place] [address] Performed By: #### 5 8410-2 ####[facility] [id number] [address] STATES OF [facility] MCHC (RBC) [Mass/Vol] 31.4 g/dL Normal 30.5-36.0 [facility] Comment on above: Order Comment: Speci men Type: BLOOD SPECIMENOrdering Facility: [facility] Address: [address] [place] [address] Performed By: #### 5 8410-2 ####[facility] [id number] [address] STATES OF [facility] MCV (RBC) [Entitic vol] 94.7 fL Normal 80.0-100.0 [facility] Comment on above: Order Comment: Speci men Type: BLOOD SPECIMENOrdering Facility: [facility] Address: [address] [place] [address] Performed By: #### 5 8410-2 ####[facility] [id number] [address] [place] Nucleated RBC (Bld) [#/Vol] 10*3/uL Normal <0.01 [facility] Comment on above: Order Comment: Speci men Type: BLOOD SPECIMENOrdering Facility: [facility] Address: [address] [place] [address] Performed By: #### 5 8410-2 ####[facility] [id number] [address] [place] Platelet mean volume (Bld) [Entitic vol] 11.4 fL Normal 9.0-12.7 [facility] Comment on above: Order Comment: Speci men Type: BLOOD SPECIMENOrdering Facility: [facility] Address: [address] [place] [address] Performed By: #### 5 8410-2 ####[facility] LABCLIA [id number] [place] [address] [place] Platelets (Bld) [#/Vol] 189 10*3/uL Normal 150-400 [facility] Comment on above: Order Comment: Speci men Type: BLOOD SPECIMENOrdering Facility: [facility] Address: [address] [place], [place] [address] Performed By: #### 5 8410-2 ####[facility] LABIA [id number] [place] [address] [place] RBC (Bld) [#/Vol] 4.51 10*6/uL Normal 3.90-5.20 [facility] Comment on above: Order Comment: Speci men Type: BLOOD SPECIMENOrdering Facility: [facility] Address: [address] [place] [address] Performed By: #### 5 8410-2 ####[facility] LABIA [id number] [place] [address] [place] WBC (Bld) [#/Vol] 5.55 10*3/uL Normal 3.70-11.00 [facility] Comment on above: Order Comment: Speci men Type: BLOOD SPECIMENOrdering Facility: [facility] Address: [address] [place] [address] Performed By: #### 5 8410-2 ####[facility] LABCLIA [id number] [place] [address] [place] CNNURSEon 01-24-2023 CNNURSE Normal [facility] CNOVon 01-24-2023 CNOV Normal [facility] 2000 panelon 01-24-2023 Albumin [Mass/Vol] 4.5 g/dL Normal 3.9-4.9 [facility] Comment on above: Order Comment: Speci men Type: BLOOD SPECIMENOrdering Facility: [facility] Address: [address] [place] [address] Performed By: #### 2 4323-8 ####[facility] LABCLIA [id number] [place] [address] [place] ALP [Catalytic activity/Vol] 88 U/L Normal 34-123 [facility] Comment on above: Order Comment: Speci men Type: BLOOD SPECIMENOrdering Facility: [facility] Address: [address] [place] [address] Performed By: #### 2 4323-8 ####[facility] LABCLIA [id number] [place] [address] [place] ALT [Catalytic activity/Vol] 10 U/L Normal 7-38 [facility] Comment on above: Order Comment: Speci men Type: BLOOD SPECIMENOrdering Facility: [facility] Address: [address] [place] [address] Performed By: #### 2 4323-8 ####[facility] LABCLIA [id number] [place] [address] [place] Anion gap [Moles/Vol] 11 mmol/L Normal 9-18 [facility] Comment on above: Order Comment: Speci men Type: BLOOD SPECIMENOrdering Facility: [facility] Address: [address] [place] [address] Performed By: #### 2 4323-8 ####[facility] LABCLIA [id number] [place] [address] [place] AST [Catalytic activity/Vol] 12 U/L Low 13-35 [facility] Comment on above: Order Comment: Speci men Type: BLOOD SPECIMENOrdering Facility: [facility] Address: [address] [place] [address] Performed By: #### 2 4323-8 ####[facility] LABCLIA [id number] [place] [address] [place] Bilirubin [Mass/Vol] mg/dL Low 0.2-1.3 [facility] Comment on above: Order Comment: Speci men Type: BLOOD SPECIMENOrdering Facility: [facility] Address: [address] Performed By: #### 2 4323-8 ####[facility] LABCLIA [id number] [place] [address] [place] Calcium [Mass/Vol] 9.5 mg/dL Normal 8.5-10.2 [facility] Comment on above: Order Comment: Speci men Type: BLOOD SPECIMENOrdering Facility: [facility] Address: [address] Performed By: #### 2 4323-8 ####[facility] LABCLIA [id number] [place] [address] [place] Chloride [Moles/Vol] 106 mmol/L High 97-105 [facility] Comment on above: Order Comment: Speci men Type: BLOOD SPECIMENOrdering Facility: [facility] Address: [address] [place] [address] Performed By: #### 2 4323-8 ####[facility] LABCLIA [id number] [place] [address] [place] CO2 [Moles/Vol] 23 mmol/L Normal 22-30 [facility] Comment on above: Order Comment: Speci men Type: BLOOD SPECIMENOrdering Facility: [facility] Address: [address] Performed By: #### 2 4323-8 ####[facility] LABCLIA [id number] [address] [id number] [address] [place] Creatinine [Mass/Vol] 0.89 mg/dL Normal 0.58-0.96 [facility] Comment on above: Order Comment: Tank rao Type: BLOOD SPECIMENOrdering Facility: [facility] Address: [address] [id number] Performed By: #### 2 4323-8 ####[facility] LABCLIA [id number] [address] ESTIMATED GLOMERULAR FILTRATION RATE 95 mL/min/1.73m??? Normal >=60 [facility] Comment on above: Order Comment: Tank rao Type: BLOOD SPECIMENOrdering Facility: [facility] Address: [address] [place] [address] Result Comment: Zeynep mated Glomerular Filtration Rate (eGFR) is calculated using the 2020 CKD-EPI creatinine equation. This equation utilizes serum creatinine, sex, and age as parameters. The creatinine assay has traceable calibration to isotope dilution-mass spectrometry. Refer to KDIGO guidelines for clinical interpretation. In patients with unstable renal function, e.g. those with acute kidney injury, the eGFR may not accurately reflect actual GFR. Performed By: #### 2 4323-8 ####[facility] LABCLIA [id number] [address] [place] Glucose [Mass/Vol] 108 mg/dL High 74-99 [facility] Comment on above: Order Comment: Tank rao Type: BLOOD SPECIMENOrdering Facility: [facility] Address: [address] [place] [address] Result Comment: The [place] Diabetes [employer] (ADA) provides guidance for cutoff values for fasting glucose and random glucose. The ADA defines fasting as no caloric intake for at least 8 hours. Fasting plasma glucose results between 100 to 125 mg/dL indicate increased risk for diabetes (prediabetes).Fasting plasma glucose results greater than or equal to 126 mg/dL meet the criteria for diagnosis of diabetes. In the absence of unequivocal hyperglycemia, results should be confirmed by repeat testing. In a patient with classic symptoms of hyperglycemia or hyperglycemic crisis, random plasma glucose results greater than or equal to 200 mg/dL meet the criteria for diagnosis of diabetes.Reference: Standards of Medical Care in Diabetes 2016, [place] [employer]. Diabetes Care. 2016.39(Suppl 1). Performed By: #### 2 4323-8 ####[facility] LABCLIA [id number] [place] [address] [place] Potassium [Moles/Vol] 4.6 mmol/L Normal 3.7-5.1 [facility] Comment on above: Order Comment: Speci men Type: BLOOD SPECIMENOrdering Facility: [facility] Address: [address] [address] Performed By: #### 2 4323-8 ####[facility] LABCLIA [id number] [place] [address] [place] Protein [Mass/Vol] 6.7 g/dL Normal 6.3-8.0 [facility] Comment on above: Order Comment: Speci men Type: BLOOD SPECIMENOrdering Facility: [facility] Address: [address] [address] Performed By: #### 2 4323-8 ####[facility] LABCLIA [id number] [place] [address] [place] Sodium [Moles/Vol] 140 mmol/L Normal 136-144 [facility] Comment on above: Order Comment: Speci men Type: BLOOD SPECIMENOrdering Facility: [facility] Address: [address] Performed By: #### 2 4323-8 ####[facility] LABCLIA [id number] [place] [address] [place] Urea nitrogen [Mass/Vol] 21 mg/dL Normal 7-21 [facility] Comment on above: Order Comment: Speci men Type: BLOOD SPECIMENOrdering Facility: [facility] Address: [address] Performed By: #### 2 4323-8 ####[facility] LABCLIA [id number] [place] [id number] [place] HISTORY PHYSICALon HISTORY PHYSICAL Normal [facility] MRI BRAIN LOCAL WO IVCONon 0 01-24-2023 MRI BRAIN LOCAL WO IVCON Normal [facility] MRI BRAIN LOCALIZATION WO IV CONon 01-24-2023 [facility] PT panel Coag (PPP)on 2022 INR Coag (PPP) [Relative time] 1.0 {INR} Normal 0.9-1.3 [facility] Comment on above: Order Comment: Speci men Type: BLOOD SPECIMENOrdering Facility: [facility] Address: [address] Result Comment: Liliam min K Antagonist (VKA) Therapeutic Range: INR 2 to 3 (Target INR of 2.5)Note: For patients treated with VKA drugs, such as warfarin, the [employer] 2012 Guideline recommends a therapeutic INR range of 2 to 3 (target INR of 2.5). This recommendation includes high-risk patients with antiphospholipid syndrome with previous arterial or venous thromboembolism, current-generation mechanical or bioprosthetic aortic heart valve replacement.Note: Patients with mechanical aortic valve replacement and additional risk factors for thromboembolic events (atrial fibrillation, previous thromboembolism, LV dysfunction, hypercoagulable conditions) or an older generation mechanical AVR (i.e., ball in-Cage) or any mechanical MVR should have a INR therapeutic range of 2.5 to 3.5 (target INR of 3).Preeti GH, et al. Chest 2012, 141:7S-47SNishobed RA, et al. [facility] 2017, 70: 252-289 Performed By: #### 3 4528-0, 99688-8 ####[facility] LABCLIA [id number] [address] [place] PT Coag (PPP) [Time] 10.3 s Normal 9.7-13.0 [facility] Comment on above: Order Comment: Speci men Type: BLOOD SPECIMENOrdering Facility: [facility] Address: [address] [id number] Performed By: #### 3 4528-0, 98081-9 ####[facility] LABCLIA [id number] [address] OF [facility] STAPH AUREUS PCRon S. aureus and MRSA panel CHARLINE+probe (Nose) Normal Negative [facility] Comment on above: Order Comment: Speci men Type: SWAB OF INTERNAL NOSEOrdering Facility: [facility] Address: [address] [place] [address] Result Comment: Nega tive for Staphylococcus aureus by PCR.Negative for MRSA by PCR Performed By: #### S APCR ####[facility] LABIA [id number] [place] [address] [place] aPTT PPPon 01-24-2023 aPTT Coag (PPP) [Time] 25.9 s Normal 23.0-32.4 [facility] Comment on above: Order Comment: Speci men Type: BLOOD SPECIMENOrdering Facility: [facility] Address: [address] [place] [address] Performed By: #### 3 4528-0, 07492-8 ####[facility] LABIA [id number] [place] [address] [place] CNOVon 01-13-2023 CNOV Normal [facility] US ARM VEIN DVT UNL VAS LABo n 01-13-2023 US ARM VEIN DVT UNL VAS LAB Normal [facility] CNPNon 01-12-2023 CNPN Normal [facility] CNPNon 01-05-2023 CNPN Normal [facility] CNNURSEon 01-04-2023 CNNURSE Normal [facility] CNCOon 12-30-2022 CNCO Letter Text Normal [facility] CNPNon 12-28-2022 CNPN Normal [facility] CNPNon 12-26-2022 CNPN Normal [facility] CNDSon 12-24-2022 CNDS Normal [facility] CONSULT PROGon 12-24-2022 CONSULT PROG Normal [facility] ANES POSTPROC EVALon 023 ANES POSTPROC EVAL Normal [facility] ANES PRE-OPon 12-23-2022 ANES PRE-OP Normal [facility] BRIEF OP NOTon 12-23-2022 BRIEF OP NOT Normal [facility] CNPNon 12-23-2022 CNPN Normal [facility] CONSULTon 12-23-2022 CONSULT Normal [facility] CT BRAIN WO CONTRASTon 12-23 CT [facility]RAIN [facility] OPERATIVE NOon 12-23-2022 OPERATIVE NO Normal [facility] SURGICAL PATHOLOGYon 023 CASE REPORT Normal [facility] Comment on above: Order Comment: Speci men Type: DEVICE SPECIMENOrdering Facility: [facility] Address: [address] [place] [address] Result Comment: Surg ical Pathology Report Case: [id number] Provider: Antonella David MD Collected: 12/23/2022 02:38 PMOrdering Location: Admitting Received: 12/23/2022 03:05 PMPathologist: Mario Marks MD, PhDSpecimen: DEVICE, BRAIN ELECTRODES EXPLANTED Performed By: #### S ####[facility] LABIA [id number] [place] [address] [place] CLINICAL HISTORY Normal [facility] Comment on above: Order Comment: Speci jalen Type: DEVICE SPECIMENOrdering Facility: [facility] Address: [address] [place] [address] Result Comment: Pre- op diagnosis:Epilepsy (HCC) [G40.909] Performed By: #### S ####[facility] LABIA [id number] [address] OF [facility] FINAL DIAGNOSIS Normal [facility] Comment on above: Order Comment: Speci jalen Type: DEVICE SPECIMENOrdering Facility: [facility] Address: [address] [place] [address] Result Comment: A. U nspecified site, hardware removal:- Nineteen electrodes, nineteen lead wires, and nineteen metallic screws (gross examination only).BY/FAITH/tate 12/26/2022 Performed By: #### S ####[facility] LABCLIA [id number] [address] [place] FINAL PERFORMING LAB Normal [facility] Comment on above: Order Comment: Speci men Type: DEVICE SPECIMENOrdering Facility: [facility] Address: [address] [place] [address] Result Comment: Diag nostic interpretation performed at [facility], [facility] [place] [address] CLIA# [id number] Director: Kody Bhandari M.D. Performed By: #### S ####[facility]ITAL[facility] [id number] [address] GROSS DESCRIPTION A. DEVICE Normal [facility] Comment on above: Order Comment: Speci men Type: DEVICE SPECIMENOrdering Facility: [facility] Address: [address] [place] [address] Result Comment: Rece ived fresh labeled brain electrodes consists of 19 electrodes (each measuring 0.9 cm in length by 0.7 cm diameter), 19 lead wires (ranging 4.1 to 9.1 cm in length with a thickness of 0.1), and 19 metallic screws (ranging 2.4 to 3.2 cm in length with a diameter of 0.3 cm). No tissue is present or submitted. This case is reviewed with Dr. Marks. Gross examination only.Gross examination performed at [facility], [address] [facility] [id number] December 26, 2022 12:52 PM Performed By: #### S ####[facility] LABIA [id number] [address] [place] XR SKULL 1 VIEWon 12-23-2022 XR SKULL 1 VIEW Normal [facility] Basic metabolic 2000 panelon 12-22-2022 Anion gap [Moles/Vol] 14 mmol/L Normal 9-18 [facility] Comment on above: Order Comment: Speci men Type: BLOOD SPECIMENOrdering Facility: [facility] Address: [address] Performed By: #### 2 4321-2 ####[facility] LABCLIA [id number] [place] [address] [place] Calcium [Mass/Vol] 9.7 mg/dL Normal 8.5-10.2 [facility] Comment on above: Order Comment: Speci men Type: BLOOD SPECIMENOrdering Facility: [facility] Address: [address] Performed By: #### 2 4321-2 ####[facility] LABCLIA [id number] [place] [address] [place] Chloride [Moles/Vol] 105 mmol/L Normal 97-105 [facility] Comment on above: Order Comment: Speci men Type: BLOOD SPECIMENOrdering Facility: [facility] Address: [address] [place], [place] [address] Performed By: #### 2 4321-2 ####[facility] LABCLIA [id number] [place] [address] [place] CO2 [Moles/Vol] 22 mmol/L Normal 22-30 [facility] Comment on above: Order Comment: Speci men Type: BLOOD SPECIMENOrdering Facility: [facility] Address: [address] Performed By: #### 2 4321-2 ####[facility] LABCLIA [id number] [place] [address] [place] Creatinine [Mass/Vol] 0.76 mg/dL Normal 0.58-0.96 [facility] Comment on above: Order Comment: Speci men Type: BLOOD SPECIMENOrdering Facility: [facility] Address: [address] Performed By: #### 2 4321-2 ####[facility] LABCLIA [id number] [address] ESTIMATED GLOMERULAR FILTRATION RATE 115 mL/min/1.73m??? Normal >=60 [facility] Comment on above: Order Comment: Tank rao Type: BLOOD SPECIMENOrdering Facility: [facility] Address: [address] [place] [address] Result Comment: Zeynep mated Glomerular Filtration Rate (eGFR) is calculated using the 2020 CKD-EPI creatinine equation. This equation utilizes serum creatinine, sex, and age as parameters. The creatinine assay has traceable calibration to isotope dilution-mass spectrometry. Refer to KDIGO guidelines for clinical interpretation. In patients with unstable renal function, e.g. those with acute kidney injury, the eGFR may not accurately reflect actual GFR. Performed By: #### 2 4321-2 ####[facility]ITAL[facility] [id number] [address] Glucose [Mass/Vol] 101 mg/dL High 74-99 [facility] Comment on above: Order Comment: Tank rao Type: BLOOD SPECIMENOrdering Facility: [facility] Address: [address] [place] [address] Result Comment: The [place] Diabetes Association (ADA) provides guidance for cutoff values for fasting glucose and random glucose. The ADA defines fasting as no caloric intake for at least 8 hours. Fasting plasma glucose results between 100 to 125 mg/dL indicate increased risk for diabetes (prediabetes).Fasting plasma glucose results greater than or equal to 126 mg/dL meet the criteria for diagnosis of diabetes. In the absence of unequivocal hyperglycemia, results should be confirmed by repeat testing. In a patient with classic symptoms of hyperglycemia or hyperglycemic crisis, random plasma glucose results greater than or equal to 200 mg/dL meet the criteria for diagnosis of diabetes.Reference: Standards of Medical Care in Diabetes 2016, [place] Diabetes Association. Diabetes Care. 2016.39(Suppl 1). Performed By: #### 2 4321-2 ####[facility] LABIA [id number] [address] [id number] [address] [place] Potassium [Moles/Vol] 4.5 mmol/L Normal 3.7-5.1 [facility] Comment on above: Order Comment: Speci men Type: BLOOD SPECIMENOrdering Facility: [facility] Address: [address] [place] [address] Performed By: #### 2 4321-2 ####[facility] LABCLIA [id number] [place] [address] [place] Sodium [Moles/Vol] 141 mmol/L Normal 136-144 [facility] Comment on above: Order Comment: Speci men Type: BLOOD SPECIMENOrdering Facility: [facility] Address: [address] [place] [address] Performed By: #### 2 4321-2 ####[facility] LABCLIA [id number] [place] [address] [place] Urea nitrogen [Mass/Vol] 16 mg/dL Normal 7-21 [facility] Comment on above: Order Comment: Speci men Type: BLOOD SPECIMENOrdering Facility: [facility] Address: [address] [place] [address] Performed By: #### 2 4321-2 ####[facility] LABCLIA [id number] [place] [address] [place] CONSULT PROGon 12-22-2022 CONSULT PROG Normal [facility] HCG Preg Ur Qlon 12-22-2022 HCG ( test) Ql (U) Negative Normal Negative [facility] Comment on above: Order Comment: Speci men Type: URINE SPECIMENOrdering Facility: [facility] Address: [address] [place] [address] Result Comment: This test is intended to aid in the early detection of . Very dilute urine samples, as indicated by a low specific gravity, may not contain technical sales representative levels of hCG. This test detects intact hCG only. This test does not reliably detect hCG degradation products, including free-beta subunit and beta-core fragment. Therefore, this test may show reduced reactivity in urine after 8 weeks gestation. A number of conditions other than , including trophoblastic disease and certain non-trophoblastic neoplasms cause elevated levels of hCG. As with any assay employing mouse antibodies, the possibility exists for interference by human anti-mouse antibodies (HAMA) in the specimen. The test provides a presumptive diagnosis for . Performed By: #### 2 106-3 ####[facility] LABCLIA [id number] [place] [address] [place] PT panel Coag (PPP)on 2022 INR Coag (PPP) [Relative time] 1.0 {INR} Normal 0.9-1.3 [facility] Comment on above: Order Comment: Speci men Type: BLOOD SPECIMENOrdering Facility: [facility] Address: [address] [place] [address] Result Comment: Liliam min K Antagonist (VKA) Therapeutic Range: INR 2 to 3 (Target INR of 2.5)Note: For patients treated with VKA drugs, such as warfarin, the [employer] 2012 Guideline recommends a therapeutic INR range of 2 to 3 (target INR of 2.5). This recommendation includes high-risk patients with antiphospholipid syndrome with previous arterial or venous thromboembolism, current-generation mechanical or bioprosthetic aortic heart valve replacement.Note: Patients with mechanical aortic valve replacement and additional risk factors for thromboembolic events (atrial fibrillation, previous thromboembolism, LV dysfunction, hypercoagulable conditions) or an older generation mechanical AVR (i.e., ball in-Cage) or any mechanical MVR should have a INR therapeutic range of 2.5 to 3.5 (target INR of 3).Preeti MAY, et al. Chest 2012, 141:7S-47SLewis RA, et al. [facility] 2017, 70: 252-289 Performed By: #### 3 4528-0, 26800-0 ####[facility] LABCLIA [id number] [place] [address] [place] PT Coag (PPP) [Time] 10.3 s Normal 9.7-13.0 [facility] Comment on above: Order Comment: Speci men Type: BLOOD SPECIMENOrdering Facility: [facility] Address: [address] [place] [address] Performed By: #### 3 4528-0, 04501-4 ####[facility] LABCLIA [id number] [place] [address] [place] TYPE + SCREENon 12-22-2022 ABO A Normal [facility] Comment on above: Order Comment: Speci men Type: BLOOD SPECIMENOrdering Facility: [facility] Address: [address] [place] [address] Performed By: #### T SCR ####[facility] BLOOD BANKCLIA [id number] [address] OF [facility] HISTORICAL AB SCR STATUS Negative Normal [facility] Comment on above: Order Comment: Speci men Type: BLOOD SPECIMENOrdering Facility: [facility] Address: [address] [place] [address] Performed By: #### T SCR ####[facility] BLOOD BANKCLIA [id number] [place] [address] [place] Rh Nom (Bld) Positive Normal [facility] Comment on above: Order Comment: Speci men Type: BLOOD SPECIMENOrdering Facility: [facility] Address: [address] [place] [address] Performed By: #### T SCR ####[facility] BLOOD BANKCLIA [id number] [place] [address] [place] TYPE AND SCREEN EXPIRATION 12/25/2022 23:59 Normal [facility] Comment on above: Order Comment: Speci men Type: BLOOD SPECIMENOrdering Facility: [facility] Address: [address] [place] [address] Performed By: #### T SCR ####[facility] BLOOD BANKCLIA [id number] [place] [address] [place] aPTT PPPon 12-22-2022 aPTT Coag (PPP) [Time] 27.8 s Normal 23.0-32.4 [facility] Comment on above: Order Comment: Speci men Type: BLOOD SPECIMENOrdering Facility: [facility] Address: [address] [place] [address] Performed By: #### 3 4528-0, 09791-1 ####[facility] LABIA [id number] [address] OF [facility] Bacteria Ur Culton 3 Bacteria identified Cx Nom (U) ORGANISM ID: 1 <10,000 CFU/ml Enterococcus faecalis Insignificant colony count. No further workup. Normal [facility] Comment on above: Performed By: #### 6 30-4 ####[facility] LABIA [id number] [address] [place] CBC W Auto Differential pane l (Bld)on 12-21-2022 Basophils (Bld) [#/Vol] 0.07 10*3/uL Normal <0.11 [facility] Comment on above: Order Comment: Speci men Type: BLOOD SPECIMENOrdering Facility: [facility] Address: [address] [place] [address] Performed By: #### 5 7021-8 ####[facility] LABIA [id number] [address] STATES OF [facility] Basophils/100 WBC (Bld) 0.9 % Normal [facility] Comment on above: Order Comment: Speci men Type: BLOOD SPECIMENOrdering Facility: [facility] Address: [address] [place] [address] Performed By: #### 5 7021-8 ####[facility] LABIA [id number] [address] OF [facility] Differential cell count method Nom (Bld) Auto Normal [facility] Comment on above: Order Comment: Speci men Type: BLOOD SPECIMENOrdering Facility: [facility] Address: [address] [place] [address] Performed By: #### 5 7021-8 ####[facility] LABCLIA [id number] [place] [address] [place] Eosinophils (Bld) [#/Vol] 0.26 10*3/uL Normal <0.46 [facility] Comment on above: Order Comment: Speci men Type: BLOOD SPECIMENOrdering Facility: [facility] Address: [address] Performed By: #### 5 7021-8 ####[facility] LABCLIA [id number] [place] [address] [place] Eosinophils/100 WBC (Bld) 3.5 % Normal [facility] Comment on above: Order Comment: Speci men Type: BLOOD SPECIMENOrdering Facility: [facility] Address: [address] [place], [place] [address] Performed By: #### 5 7021-8 ####[facility] LABCLIA [id number] [place] [address] [place] Erythrocyte distribution width (RBC) [Ratio] 13.2 % Normal 11.5-15.0 [facility] Comment on above: Order Comment: Speci men Type: BLOOD SPECIMENOrdering Facility: [facility] Address: [address] [place], [place] [address] Performed By: #### 5 7021-8 ####[facility] LABCLIA [id number] [place] [address] [place] Hematocrit (Bld) [Volume fraction] 40.5 % Normal 36.0-46.0 [facility] Comment on above: Order Comment: Speci men Type: BLOOD SPECIMENOrdering Facility: [facility] Address: [address] [place], [place] [address] Performed By: #### 5 7021-8 ####[facility] LABCLIA [id number] [place] [address] [place] Hemoglobin (Bld) [Mass/Vol] 13.4 g/dL Normal 11.5-15.5 [facility] Comment on above: Order Comment: Speci men Type: BLOOD SPECIMENOrdering Facility: [facility] Address: [address] [place] [address] Performed By: #### 5 7021-8 ####[facility] LABCLIA [id number] [place] [address] [place] Immature granulocytes (Bld) [#/Vol] 10*3/uL Normal <0.10 [facility] Comment on above: Order Comment: Speci men Type: BLOOD SPECIMENOrdering Facility: [facility] Address: [address] [place] [address] Performed By: #### 5 7021-8 ####[facility] LABCLIA [id number] [address] [place] Immature granulocytes/100 WBC (Bld) 0.1 % Normal [facility] Comment on above: Order Comment: Speci men Type: BLOOD SPECIMENOrdering Facility: [facility] Address: [address] [place], [place] [address] Performed By: #### 5 7021-8 ####[facility] LABCLIA [id number] [place] [address] [place] Lymphocytes (Bld) [#/Vol] 2.33 10*3/uL Normal 1.00-4.00 [facility] Comment on above: Order Comment: Speci men Type: BLOOD SPECIMENOrdering Facility: [facility] Address: [address] [place], [place] [address] Performed By: #### 5 7021-8 ####[facility] LABCLIA [id number] [place] [address] [place] Lymphocytes/100 WBC (Bld) 31.5 % Normal [facility] Comment on above: Order Comment: Speci men Type: BLOOD SPECIMENOrdering Facility: [facility] Address: [address] [address] Performed By: #### 5 7021-8 ####[facility] LABIA [id number] [address] MCH (RBC) [Entitic mass] 30.0 pg Normal 26.0-34.0 [facility] Comment on above: Order Comment: Speci men Type: BLOOD SPECIMENOrdering Facility: [facility] Address: [address] [address] Performed By: #### 5 7021-8 ####[facility] LABIA [id number] [address] STATES [facility] MCHC (RBC) [Mass/Vol] 33.1 g/dL Normal 30.5-36.0 [facility] Comment on above: Order Comment: Speci men Type: BLOOD SPECIMENOrdering Facility: [facility] Address: [address] [place], [place] [address] Performed By: #### 5 7021-8 ####[facility] LABIA [id number] [address] STATES [facility] MCV (RBC) [Entitic vol] 90.8 fL Normal 80.0-100.0 [facility] Comment on above: Order Comment: Speci men Type: BLOOD SPECIMENOrdering Facility: [facility] Address: [address] [place], [place] [address] Performed By: #### 5 7021-8 ####[facility] LABIA [id number] [place] [address] [facility] Monocytes (Bld) [#/Vol] 0.58 10*3/uL Normal <0.87 [facility] Comment on above: Order Comment: Speci men Type: BLOOD SPECIMENOrdering Facility: [facility] Address: [address] [place], [place] [address] Performed By: #### 5 7021-8 ####[facility] LABCLIA [id number] [place] [address] [place] Monocytes/100 WBC (Bld) 7.8 % Normal [facility] Comment on above: Order Comment: Speci men Type: BLOOD SPECIMENOrdering Facility: [facility] Address: [address] [place] [address] Performed By: #### 5 7021-8 ####[facility] LABCLIA [id number] [place] [address] [place] Neutrophils (Bld) [#/Vol] 4.15 10*3/uL Normal 1.45-7.50 [facility] Comment on above: Order Comment: Speci men Type: BLOOD SPECIMENOrdering Facility: [facility] Address: [address] [place] [address] Performed By: #### 5 7021-8 ####[facility] LABCLIA [id number] [place] [address] [place] Neutrophils/100 WBC (Bld) 56.2 % Normal [facility] Comment on above: Order Comment: Speci men Type: BLOOD SPECIMENOrdering Facility: [facility] Address: [address] [place] [address] Performed By: #### 5 7021-8 ####[facility] LABCLIA [id number] [place] [address] [place] Nucleated RBC (Bld) [#/Vol] 10*3/uL Normal <0.01 [facility] Comment on above: Order Comment: Speci men Type: BLOOD SPECIMENOrdering Facility: [facility] Address: [address] [place], [place] [address] Performed By: #### 5 7021-8 ####[facility] LABCLIA [id number] [place] [address] [place] Nucleated RBC/100 WBC (Bld) [Ratio] 0.0 /100 WBC Normal [facility] Comment on above: Order Comment: Speci men Type: BLOOD SPECIMENOrdering Facility: [facility] Address: [address] [place], [place] [address] Performed By: #### 5 7021-8 ####[facility] LABCLIA [id number] [place] [address] [place] Platelet mean volume (Bld) [Entitic vol] 10.3 fL Normal 9.0-12.7 [facility] Comment on above: Order Comment: Speci men Type: BLOOD SPECIMENOrdering Facility: [facility] Address: [address] [place], [place] [address] Performed By: #### 5 7021-8 ####[facility] LABCLIA [id number] [place] [address] [place] Platelets (Bld) [#/Vol] 245 10*3/uL Normal 150-400 [facility] Comment on above: Order Comment: Speci men Type: BLOOD SPECIMENOrdering Facility: [facility] Address: [address] [place], [place] [address] Performed By: #### 5 7021-8 ####[facility] LABIA [id number] [place] [address] [place] RBC (Bld) [#/Vol] 4.46 10*6/uL Normal 3.90-5.20 [facility] Comment on above: Order Comment: Speci men Type: BLOOD SPECIMENOrdering Facility: [facility] Address: [address] [place] [address] Performed By: #### 5 7021-8 ####[facility] LABIA [id number] [place] [address] [place] WBC (Bld) [#/Vol] 7.40 10*3/uL Normal 3.70-11.00 [facility] Comment on above: Order Comment: Speci men Type: BLOOD SPECIMENOrdering Facility: [facility] Address: [address] [place] [address] Performed By: #### 5 7021-8 ####[facility] LABCLIA [id number] [place] [address] [place] CONSULT PROGon 12-21-2022 CONSULT PROG Normal [facility] Hepatic function 2000 panelo n 12-21-2022 Albumin [Mass/Vol] 4.3 g/dL Normal 3.9-4.9 [facility] Comment on above: Order Comment: Speci men Type: BLOOD SPECIMENOrdering Facility: [facility] Address: [address] Performed By: #### 2 4325-3 ####[facility] LABCLIA [id number] [place] [address] [place] ALP [Catalytic activity/Vol] 79 U/L Normal 34-123 [facility] Comment on above: Order Comment: Speci men Type: BLOOD SPECIMENOrdering Facility: [facility] Address: [address] Performed By: #### 2 4325-3 ####[facility] LABCLIA [id number] [place] [address] [place] ALT [Catalytic activity/Vol] 13 U/L Normal 7-38 [facility] Comment on above: Order Comment: Speci men Type: BLOOD SPECIMENOrdering Facility: [facility] Address: [address] [place] [address] Performed By: #### 2 4325-3 ####[facility] LABCLIA [id number] [place] [address] [place] AST [Catalytic activity/Vol] 18 U/L Normal 13-35 [facility] Comment on above: Order Comment: Speci men Type: BLOOD SPECIMENOrdering Facility: [facility] Address: [address] Performed By: #### 2 4325-3 ####[facility] LABCLIA [id number] [place] [address] [place] Bilirubin [Mass/Vol] 0.2 mg/dL Normal 0.2-1.3 [facility] Comment on above: Order Comment: Speci men Type: BLOOD SPECIMENOrdering Facility: [facility] Address: [address] [place] [address] Performed By: #### 2 4325-3 ####[facility] LABIA [id number] [place] [address] [place] Bilirubin.conjugated [Mass/Vol] mg/dL Normal <0.2 [facility] Comment on above: Order Comment: Speci men Type: BLOOD SPECIMENOrdering Facility: [facility] Address: [address] [place] [address] Result Comment: Resu lts may be falsely decreased due to interference from hemolysis. Suggest reorder as clinically indicated. Performed By: #### 2 4325-3 ####[facility] LABCLIA [id number] [place] [address] [place] Protein [Mass/Vol] 6.7 g/dL Normal 6.3-8.0 [facility] Comment on above: Order Comment: Speci men Type: BLOOD SPECIMENOrdering Facility: [facility] Address: [address] [place] [address] Performed By: #### 2 4325-3 ####[facility] LABCLIA [id number] [place] [address] [place] NUTRITIONon 12-21-2022 NUTRITION Normal [facility] ALLIED HEALTHon 12-20-2022 ALLIED HEALTH Normal [facility] CONSULT PROGon 12-20-2022 CONSULT PROG Normal [facility] US ARM VEIN DVT FILIPPO VAS LABo n 12-20-2022 US ARM VEIN DVT IFLIPPO VAS LAB Normal [facility] CONSULT PROGon 12-19-2022 CONSULT PROG Normal [facility] CONSULT PROGon 12-18-2022 CONSULT PROG Normal [facility] CONSULT PROGon 12-17-2022 CONSULT PROG Normal [facility] CONSULT PROGon 12-16-2022 CONSULT PROG Normal [facility] NURSING PROGon 12-16-2022 NURSING PROG Normal [facility] CONSULT PROGon 12-15-2022 CONSULT PROG Normal [facility] CONSULT PROGon 12-14-2022 CONSULT PROG Normal [facility] CONSULT PROGon 12-13-2022 CONSULT PROG Normal [facility] CONSULT PROGon 12-12-2022 CONSULT PROG Normal [facility] NURSING PROGon 12-12-2022 NURSING PROG Normal [facility] PT EDon 12-12-2022 PT ED Normal [facility] CONSULT PROGon 12-11-2022 CONSULT PROG Normal [facility] CONSULT PROGon 12-10-2022 CONSULT PROG Normal [facility] CONSULT PROGon 12-09-2022 CONSULT PROG Normal [facility] NUTRITIONon 12-09-2022 NUTRITION Normal [facility] CONSULT PROGon 12-08-2022 CONSULT PROG Normal [facility] CONSULT PROGon 12-07-2022 CONSULT PROG Normal [facility] CONSULT PROGon 12-06-2022 CONSULT PROG Normal [facility] CONSULT PROGon 12-05-2022 CONSULT PROG Normal [facility] NUTRITIONon 12-05-2022 NUTRITION Normal [facility] CONSULT PROGon 12-04-2022 CONSULT PROG Normal [facility] CONSULT PROGon 12-03-2022 CONSULT PROG Normal [facility] ECG COMPLETEon 12-03-2022 ECG COMPLETE Normal [facility] CASE MGT INIT ASSESon 2022 CASE MGT INIT ASSES Normal [facility] CONSULT PROGon 12-02-2022 CONSULT PROG Normal [facility] ANES POSTPROC EVALon 023 ANES POSTPROC EVAL Normal [facility] ANES PRE-OPon 12-01-2022 ANES PRE-OP Normal [facility] BRIEF OP NOTon 12-01-2022 BRIEF OP NOT Normal [facility] CONSULTon 12-01-2022 CONSULT Normal [facility] CT BRAIN STEREOLOCAL WO IVCO Non 12-01-2022 CT BRAIN STEREOLOCAL WO IVCON Normal [facility] HCG Preg Ur Qlon 12-01-2022 HCG ( test) Ql (U) Negative Normal Negative [facility] Comment on above: Order Comment: Speci men Type: URINE SPECIMENOrdering Facility: [facility] Address: [address] [place] [address] Result Comment: This test is intended to aid in the early detection of . Very dilute urine samples, as indicated by a low specific gravity, may not contain technical sales representative levels of hCG. This test detects intact hCG only. This test does not reliably detect hCG degradation products, including free-beta subunit and beta-core fragment. Therefore, this test may show reduced reactivity in urine after 8 weeks gestation. A number of conditions other than , including trophoblastic disease and certain non-trophoblastic neoplasms cause elevated levels of hCG. As with any assay employing mouse antibodies, the possibility exists for interference by human anti-mouse antibodies (HAMA) in the specimen. The test provides a presumptive diagnosis for . Performed By: #### 2 106-3 ####[facility] LABCLIA [id number] [place] [address] [place] OPERATIVE NOon 12-01-2022 OPERATIVE NO Normal [facility] XR SKULL 2V AP/LATon 023 XR SKULL 2V AP/LAT Normal [facility] CNPNon 11-23-2022 CNPN Normal [facility] CBC panel Auto (Bld)on 11-22 Erythrocyte distribution width (RBC) [Ratio] 12.5 % Normal 11.5-15.0 [facility] Comment on above: Order Comment: Speci men Type: BLOOD SPECIMENOrdering Facility: [facility] Address: [address] [place] [place] [id number] Performed By: #### 5 8410-2 ####[facility] LABCLIA [id number] [address] [id number] [address] [place] Hematocrit (Bld) [Volume fraction] 43.2 % Normal 36.0-46.0 [facility] Comment on above: Order Comment: Speci men Type: BLOOD SPECIMENOrdering Facility: [facility] Address: [address] [place] [address] Performed By: #### 5 8410-2 ####[facility] LABCLIA [id number] [place] [address] [place] Hemoglobin (Bld) [Mass/Vol] 14.5 g/dL Normal 11.5-15.5 [facility] Comment on above: Order Comment: Speci men Type: BLOOD SPECIMENOrdering Facility: [facility] Address: [address] [place] [address] Performed By: #### 5 8410-2 ####[facility] LABIA [id number] [address] [place] MCH (RBC) [Entitic mass] 29.7 pg Normal 26.0-34.0 [facility] Comment on above: Order Comment: Speci men Type: BLOOD SPECIMENOrdering Facility: [facility] Address: [address] [place], [place] [address] Performed By: #### 5 8410-2 ####[facility] LABIA [id number] [address] [place] MCHC (RBC) [Mass/Vol] 33.6 g/dL Normal 30.5-36.0 [facility] Comment on above: Order Comment: Speci men Type: BLOOD SPECIMENOrdering Facility: [facility] Address: [address] [place], [place] [address] Performed By: #### 5 8410-2 ####[facility] LABCLIA [id number] [place] [address] [place] MCV (RBC) [Entitic vol] 88.5 fL Normal 80.0-100.0 [facility] Comment on above: Order Comment: Speci men Type: BLOOD SPECIMENOrdering Facility: [facility] Address: [address] [place] [address] Performed By: #### 5 8410-2 ####[facility] [id number] [place] [address] [place] Nucleated RBC (Bld) [#/Vol] 10*3/uL Normal <0.01 [facility] Comment on above: Order Comment: Speci men Type: BLOOD SPECIMENOrdering Facility: [facility] Address: [address] Performed By: #### 5 8410-2 ####[facility] [id number] [place] [address] [place] Platelet mean volume (Bld) [Entitic vol] 11.3 fL Normal 9.0-12.7 [facility] Comment on above: Order Comment: Speci men Type: BLOOD SPECIMENOrdering Facility: [facility] Address: [address] Performed By: #### 5 8410-2 ####[facility] [id number] [place] [address] [place] Platelets (Bld) [#/Vol] 226 10*3/uL Normal 150-400 [facility] Comment on above: Order Comment: Speci men Type: BLOOD SPECIMENOrdering Facility: [facility] Address: [address] [place] [address] Performed By: #### 5 8410-2 ####[facility] LABIA [id number] [place] [address] [place] RBC (Bld) [#/Vol] 4.88 10*6/uL Normal 3.90-5.20 [facility] Comment on above: Order Comment: Speci men Type: BLOOD SPECIMENOrdering Facility: [facility] Address: [address] [place] [address] Performed By: #### 5 8410-2 ####[facility] LABCLIA [id number] [place] [address] [place] WBC (Bld) [#/Vol] 10.95 10*3/uL Normal 3.70-11.00 [facility] Comment on above: Order Comment: Speci men Type: BLOOD SPECIMENOrdering Facility: [facility] Address: [address] [place] [address] Performed By: #### 5 8410-2 ####[facility] LABCLIA [id number] [place] [address] [place] CNNURSEon 11-22-2022 CNNURSE Normal [facility] CNOVon 11-22-2022 CNOV Normal [facility] CONFIRM BLOOD TYPEon 023 ABO A Normal [facility] Comment on above: Order Comment: Speci men Type: BLOOD SPECIMENOrdering Facility: [facility] Address: [address] [place] [address] Performed By: #### C ONABO ####[facility] BLOOD BANKIA [id number] [place] [address] [place] Rh Nom (Bld) Positive Normal [facility] Comment on above: Order Comment: Speci men Type: BLOOD SPECIMENOrdering Facility: [facility] Address: [address] [place], [place] [address] Performed By: #### C ONABO ####[facility] BLOOD BANKCLIA [id number] [place] [address] [place] CTA HEAD W IVCONon CTA HEAD W IVCON Normal [facility] Comprehensive metabolic 2000 panelon 11-22-2022 Albumin [Mass/Vol] 4.9 g/dL Normal 3.9-4.9 [facility] Comment on above: Order Comment: Speci men Type: BLOOD SPECIMENOrdering Facility: [facility] Address: [address] [place] [address] Performed By: #### 2 4323-8 ####[facility] LABCLIA [id number] [place] [address] [place] ALP [Catalytic activity/Vol] 79 U/L Normal 34-123 [facility] Comment on above: Order Comment: Speci men Type: BLOOD SPECIMENOrdering Facility: [facility] Address: [address] [place], [place] [address] Performed By: #### 2 4323-8 ####[facility] LABCLIA [id number] [place] [address] [place] ALT [Catalytic activity/Vol] 14 U/L Normal 7-38 [facility] Comment on above: Order Comment: Speci men Type: BLOOD SPECIMENOrdering Facility: [facility] Address: [address] [place] [address] Performed By: #### 2 4323-8 ####[facility] LABCLIA [id number] [place] [address] [place] Anion gap [Moles/Vol] 13 mmol/L Normal 9-18 [facility] Comment on above: Order Comment: Speci men Type: BLOOD SPECIMENOrdering Facility: [facility] Address: [address] [place], [place] [address] Performed By: #### 2 4323-8 ####[facility] LABCLIA [id number] [place] [address] [place] AST [Catalytic activity/Vol] 15 U/L Normal 13-35 [facility] Comment on above: Order Comment: Speci men Type: BLOOD SPECIMENOrdering Facility: [facility] Address: [address] [place], [place] [address] Performed By: #### 2 4323-8 ####[facility] LABCLIA [id number] [place] [address] [place] Bilirubin [Mass/Vol] 0.3 mg/dL Normal 0.2-1.3 [facility] Comment on above: Order Comment: Speci men Type: BLOOD SPECIMENOrdering Facility: [facility] Address: [address] Performed By: #### 2 4323-8 ####[facility] LABCLIA [id number] [place] [address] [place] Calcium [Mass/Vol] 10.2 mg/dL Normal 8.5-10.2 [facility] Comment on above: Order Comment: Speci men Type: BLOOD SPECIMENOrdering Facility: [facility] Address: [address] Performed By: #### 2 4323-8 ####[facility] LABCLIA [id number] [place] [address] [place] Chloride [Moles/Vol] 103 mmol/L Normal 97-105 [facility] Comment on above: Order Comment: Speci men Type: BLOOD SPECIMENOrdering Facility: [facility] Address: [address] Performed By: #### 2 4323-8 ####[facility] LABCLIA [id number] [place] [address] [place] CO2 [Moles/Vol] 25 mmol/L Normal 22-30 [facility] Comment on above: Order Comment: Speci men Type: BLOOD SPECIMENOrdering Facility: [facility] Address: [address] Performed By: #### 2 4323-8 ####[facility] LABCLIA [id number] [place] [address] [place] Creatinine [Mass/Vol] 0.75 mg/dL Normal 0.58-0.96 [facility] Comment on above: Order Comment: Speci men Type: BLOOD SPECIMENOrdering Facility: [facility] Address: [address] Performed By: #### 2 4323-8 ####[facility] LABCLIA [id number] [address] ESTIMATED GLOMERULAR FILTRATION RATE 117 mL/min/1.73m??? Normal >=60 [facility] Comment on above: Order Comment: Tank rao Type: BLOOD SPECIMENOrdering Facility: [facility] Address: [address] [place] [address] Result Comment: Zeynep mated Glomerular Filtration Rate (eGFR) is calculated using the 2020 CKD-EPI creatinine equation. This equation utilizes serum creatinine, sex, and age as parameters. The creatinine assay has traceable calibration to isotope dilution-mass spectrometry. Refer to KDIGO guidelines for clinical interpretation. In patients with unstable renal function, e.g. those with acute kidney injury, the eGFR may not accurately reflect actual GFR. Performed By: #### 2 4323-8 ####[facility] [id number] [address] Glucose [Mass/Vol] 159 mg/dL High 74-99 [facility] Comment on above: Order Comment: Tank rao Type: BLOOD SPECIMENOrdering Facility: [facility] Address: [address] [place] [address] Result Comment: The [place] Diabetes [employer] (ADA) provides guidance for cutoff values for fasting glucose and random glucose. The ADA defines fasting as no caloric intake for at least 8 hours. Fasting plasma glucose results between 100 to 125 mg/dL indicate increased risk for diabetes (prediabetes).Fasting plasma glucose results greater than or equal to 126 mg/dL meet the criteria for diagnosis of diabetes. In the absence of unequivocal hyperglycemia, results should be confirmed by repeat testing. In a patient with classic symptoms of hyperglycemia or hyperglycemic crisis, random plasma glucose results greater than or equal to 200 mg/dL meet the criteria for diagnosis of diabetes.Reference: Standards of Medical Care in Diabetes 2016, [place] [employer]. Diabetes Care. 2016.39(Suppl 1). Performed By: #### 2 4323-8 ####[facility] LABIA [id number] [address] [id number] [address] [place] Potassium [Moles/Vol] 4.3 mmol/L Normal 3.7-5.1 [facility] Comment on above: Order Comment: Speci men Type: BLOOD SPECIMENOrdering Facility: [facility] Address: [address] [place] [address] Performed By: #### 2 4323-8 ####[facility] LABCLIA [id number] [place] [address] [place] Protein [Mass/Vol] 7.4 g/dL Normal 6.3-8.0 [facility] Comment on above: Order Comment: Speci men Type: BLOOD SPECIMENOrdering Facility: [facility] Address: [address] [place] [address] Performed By: #### 2 4323-8 ####[facility] LABCLIA [id number] [place] [address] [place] Sodium [Moles/Vol] 141 mmol/L Normal 136-144 [facility] Comment on above: Order Comment: Speci men Type: BLOOD SPECIMENOrdering Facility: [facility] Address: [address] [place], [place] [address] Performed By: #### 2 4323-8 ####[facility] LABCLIA [id number] [place] [address] [place] Urea nitrogen [Mass/Vol] 15 mg/dL Normal 7-21 [facility] Comment on above: Order Comment: Speci men Type: BLOOD SPECIMENOrdering Facility: [facility] Address: [address] [place], [place] [address] Performed By: #### 2 4323-8 ####[facility] LABCLIA [id number] [place] [address] [place] ECG COMPLETEon 11-22-2022 ECG COMPLETE Normal [facility] HIN13hb 11-22-2022 ECG01 Normal [facility] HISTORY PHYSICALon 04-11-202 3 HISTORY PHYSICAL Normal [facility]urdy MRI BRAIN LOCAL W IVCONon MRI BRAIN LOCAL W IVCON Normal C [facility] MRI BRAIN LOCALIZATION W IVC ONon 11-22-2022 [facility] PT panel Coag (PPP)on 2022 INR Coag (PPP) [Relative time] 1.0 {INR} Normal 0.9-1.3 [facility] Comment on above: Order Comment: Tank rao Type: BLOOD SPECIMENOrdering Facility: [facility] Address: [address] [place] [address] Result Comment: Liliam min K Antagonist (VKA) Therapeutic Range: INR 2 to 3 (Target INR of 2.5)Note: For patients treated with VKA drugs, such as warfarin, the [employer] 2012 Guideline recommends a therapeutic INR range of 2 to 3 (target INR of 2.5). This recommendation includes high-risk patients with antiphospholipid syndrome with previous arterial or venous thromboembolism, current-generation mechanical or bioprosthetic aortic heart valve replacement.Note: Patients with mechanical aortic valve replacement and additional risk factors for thromboembolic events (atrial fibrillation, previous thromboembolism, LV dysfunction, hypercoagulable conditions) or an older generation mechanical AVR (i.e., ball in-Cage) or any mechanical MVR should have a INR therapeutic range of 2.5 to 3.5 (target INR of 3).Preeti MAY, et al. Chest 2012, 141:7S-47SLewis RA, et al. [facility] 2017, 70: 252-289 Performed By: #### 3 4528-0, 21639-3 ####[facility] LABIA [id number] [place] [id number] [place] PT Coag (PPP) [Time] 10.5 s Normal 9.7-[facility].[address] [facility] Comment on above: Order Comment: Tank rao Type: BLOOD SPECIMENOrdering Facility: [facility] Address: [address] [place] [address] Performed By: #### 3 4528-0, 63824-6 ####[facility] LABCLIA [id number] [address] STAPH AUREUS PCRon S. aureus and MRSA panel CHARLINE+probe (Nose) Abnormal Negative [facility] Comment on above: Order Comment: Speci men Type: SWAB OF INTERNAL NOSEOrdering Facility: [facility] Address: [address] [place] [address] Result Comment: Posi tive for Staphylococcus aureus by PCR.Negative for MRSA by PCR Performed By: #### S APCR ####[facility] LABCLIA [id number] [place] [address] [place] TYPE AND SCREEN,30 DAYon ABO A Normal [facility] Comment on above: Order Comment: Speci men Type: BLOOD SPECIMENOrdering Facility: [facility] Address: [address] [place] [address] Performed By: #### T SCR30 ####[facility] BLOOD BANKIA [id number] [address] [place] HISTORICAL AB SCR STATUS Negative Normal [facility] Comment on above: Order Comment: Speci men Type: BLOOD SPECIMENOrdering Facility: [facility] Address: [address] [place] [address] Performed By: #### T SCR30 ####[facility] BLOOD BANKCLIA [id number] [place] [address] [place] Rh Nom (Bld) Positive Normal [facility] Comment on above: Order Comment: Speci men Type: BLOOD SPECIMENOrdering Facility: [facility] Address: [address] [place] [address] Performed By: #### T SCR30 ####[facility] BLOOD BANKIA [id number] [place] [address] [place] aPTT PPPon 11-22-2022 aPTT Coag (PPP) [Time] 25.3 s Normal 23.0-32.4 [facility] Comment on above: Order Comment: Speci men Type: BLOOD SPECIMENOrdering Facility: [facility] Address: [address] [place] [address] Performed By: #### 3 4528-0, 35664-4 ####[facility] LABCLIA [id number] [place]Marlon [place] [address] [place] MRI BRAIN WO IVCONon 023 MRI BRAIN WO IVCON Normal [facility] CNOVon 10-12-2022 CNOV Normal [facility] CNPNon 10-12-2022 CNPN Normal [facility] AUTOIMMUNE ENCEPHALOPATHY EV ALUATION, SERUMon 10-04-2022 AMPA-R AB CBA, S Negative Normal Negative [facility] Comment on above: Order Comment: Tank [facility] Type: BLOOD SPECIMENOrdering Facility: [facility] Address: [address] [place] [address] Result Comment: ---- ADDITIONAL INFORMATION This test was developed and its performance characteristicsdetermined by [facility] in a manner consistent with CLIArequirements. This test has not been cleared or approved bythe U.S. Food and Drug Administration. Performed By: #### E NCSER ####[facility] LABCLIA [id number] [place] [address] AMPHIPHYSIN AB Negative Normal Negative [facility] Comment on above: Order Comment: Tank [facility] Type: BLOOD SPECIMENOrdering Facility: [facility] Address: [address] [place] [address] Result Comment: ---- ADDITIONAL INFORMATION This test was developed and its performance characteristicsdetermined by [facility] in a manner consistent with CLIArequirements. This test has not been cleared or approved bythe U.S. Food and Drug Administration. Performed By: #### E NCSER ####[facility] LABCLIA [id number] [place] [address] ANTI-GLIAL NUCLEAR AB, TYPE 1 Negative Normal Negative [facility] Comment on above: Order Comment: Tank rao Type: BLOOD SPECIMENOrdering Facility: [facility] Address: [address] [place] [address] Result Comment: ---- ADDITIONAL INFORMATION This test was developed and its performance characteristicsdetermined by [facility] in a manner consistent with CLIArequirements. This test has not been cleared or approved bythe .S. Food and Drug Administration. Performed By: #### E NCSER ####[facility] LABCLIA [id number] [place] [address] ANTI-NEURONAL NUC AB, TYPE 1 Negative Normal Negative [facility] Comment on above: Order Comment: Tank rao Type: BLOOD SPECIMENOrdering Facility: [facility] Address: [address] [place] [address] Result Comment: ---- ADDITIONAL INFORMATION This test was developed and its performance characteristicsdetermined by [facility] in a manner consistent with CLIArequirements. This test has not been cleared or approved bythe U.S. Food and Drug Administration. Performed By: #### E NCSER ####[facility] LABCLIA [id number] [place] [address] ANTI-NEURONAL NUC AB, TYPE 2 Negative Normal Negative [facility] Comment on above: Order Comment: Tank [facility] Type: BLOOD SPECIMENOrdering Facility: [facility] Address: [address] [place] [address] Result Comment: ---- ADDITIONAL INFORMATION This test was developed and its performance characteristicsdetermined by [facility] in a manner consistent with CLIArequirements. This test has not been cleared or approved bythe U.S. Food and Drug Administration. Performed By: #### E NCSER ####[facility] LABCLIA [id number] [place] [address] ANTI-NEURONAL NUC AB, TYPE 3 Negative Normal Negative [facility] Comment on above: Order Comment: Tank rao Type: BLOOD SPECIMENOrdering Facility: [facility] Address: [address] [place] [address] Result Comment: ---- ADDITIONAL INFORMATION This test was developed and its performance characteristicsdetermined by [facility] in a manner consistent with CLIArequirements. This test has not been cleared or approved bythe .. Food and Drug Administration. Performed By: #### E NCSER ####[facility] LABCLIA [id number] [place] [address] CASPR2-IGG CBA S Negative Normal Negative [facility] Comment on above: Order Comment: Tank rao Type: BLOOD SPECIMENOrdering Facility: [facility] Address: [address] [place] [address] Result Comment: ---- ADDITIONAL INFORMATION This test was developed and its performance characteristicsdetermined by [facility] in a manner consistent with CLKeepTruckinequirements. This test has not been cleared or approved bythe .S. Food and Drug Administration. Performed By: #### E NCSER ####[facility] LABCLIA [id number] [place] [address] CRMP-5, IGG Negative Normal Negative [facility] Comment on above: Order Comment: Tank rao Type: BLOOD SPECIMENOrdering Facility: [facility] Address: [address] [place] [address] Result Comment: ---- ADDITIONAL INFORMATION This test was developed and its performance characteristicsdetermined by [facility] in a manner consistent with CLFlorence Community Healthcareequiregrover memorial hospital. This test has not been cleared or approved bythe U.S. Food and Drug Administration. Performed By: #### E NCSER ####[facility] LABCLIA [id number] [place] [address] DPPX AB IFA, S Negative Normal Negative [facility] Comment on above: Order Comment: Tank rao Type: BLOOD SPECIMENOrdering Facility: [facility] Address: [address] [place] [address] Result Comment: ---- ADDITIONAL INFORMATION This test was developed and its performance characteristicsdetermined by [facility] in a manner consistent with CLFlorence Community Healthcareequirements. This test has not been cleared or approved bythe U.S. Food and Drug Administration. Performed By: #### E NCSER ####[facility] LABCLIA [id number] [place] [address] ENCEPHALOPATHY INTERPRETATION SEE NOTE Normal [facility] Comment on above: Order Comment: Tank [facility] Type: BLOOD SPECIMENOrdering Facility: [facility] Address: [address] [place] [address] Result Comment: No i nformative autoantibodies were detected in thisevaluation. However, a negative result does not excludeautoimmune encephalopathy, idiopathic or paraneoplastic.Sensitivity and specificity of antibody testing areenhanced by testing both serum and CSF. Performed By: #### E NCSER ####[facility] LABCLIA [id number] [place] [address] PATI-B-R AB CBA, S Negative Normal Negative [facility] Comment on above: Order Comment: Tank [facility] Type: BLOOD SPECIMENOrdering Facility: [facility] Address: [address] [place] [address] Result Comment: ---- ADDITIONAL INFORMATION This test was developed and its performance characteristicsdetermined by [facility] in a manner consistent with CLIArequirements. This test has not been cleared or approved bythe U.S. Food and Drug Administration. Performed By: #### E NCSER ####[facility] LABCLIA [id number] [place] [address] [id number] ANTIBODY 0.00 nmol/L Normal <= 0.02 [facility] Comment on above: Order Comment: Tank rao Type: BLOOD SPECIMENOrdering Facility: [facility] Address: [address] [place] [address] Result Comment: ---- ADDITIONAL INFORMATION This test was developed and its performance characteristicsdetermined by [facility] in a manner consistent with CLIArequirements. This test has not been cleared or approved bythe U.S. Food and Drug Administration. Performed By: #### E NCSER ####[facility] LABCLIA [id number] [place] [address] GFAP IFA, S Negative Normal Negative [facility] Comment on above: Order Comment: Tank rao Type: BLOOD SPECIMENOrdering Facility: [facility] Address: [address] [place] [address] Result Comment: ---- ADDITIONAL INFORMATION This test was developed and its performance characteristicsdetermined by [facility] in a manner consistent with CLIArequirements. This test has not been cleared or approved bythe U.S. Food and Drug Administration. Performed By: #### E NCSER ####[facility] LABCLIA [id number] [place] [address] IFA NOTES - ENCSER None. Normal [facility] Comment on above: Order Comment: Tank rao Type: BLOOD SPECIMENOrdering Facility: [facility] Address: [address] [place] [address] Performed By: #### E NCSER ####[facility] LABCLIA [id number] [place] [address] IGLON5 IFA, S Negative Normal Negative [facility] Comment on above: Order Comment: Tank rao Type: BLOOD SPECIMENOrdering Facility: [facility] Address: [address] [facility] [place] [address] Result Comment: ---- ADDITIONAL INFORMATION This test was developed and its performance characteristicsdetermined by [facility] in a manner consistent with CLIArequirements. This test has not been cleared or approved bythe U.S. Food and Drug Administration. Performed By: #### E NCSER ####[facility] LABCLIA [id number] [place] [address] [id number] CBA SERUM Negative Normal Negative [facility] Comment on above: Order Comment: Tank rao Type: BLOOD SPECIMENOrdering Facility: [facility] Address: [address] [place] [address] Result Comment: ---- ADDITIONAL INFORMATION This test was developed and its performance characteristicsdetermined by [facility] in a manner consistent with CLIArequirements. This test has not been cleared or approved bythe U.S. Food and Drug Administration. Performed By: #### E NCSER ####[facility] LABCLIA [id number] [place] [address] MGLUR1 AB IFA, S Negative Normal Negative [facility] Comment on above: Order Comment: Tank rao Type: BLOOD SPECIMENOrdering Facility: [facility] Address: [address] [facility] [place] [address] Result Comment: ---- ADDITIONAL INFORMATION This test was developed and its performance characteristicsdetermined by [facility] in a manner consistent with CLIArequirements. This test has not been cleared or approved bythe U.S. Food and Drug Administration. Performed By: #### E NCSER ####[facility] LABCLIA [id number] [place] [address] NEUROCHONDRIN IFA , S Negative Normal Negative [facility] Comment on above: Order Comment: Tank rao Type: BLOOD SPECIMENOrdering Facility: [facility] Address: [address] [place] [address] Result Comment: ---- ADDITIONAL INFORMATION This test was developed and its performance characteristicsdetermined by [facility] in a manner consistent with CLIArequirements. This test has not been cleared or approved bythe .. Food and Drug Administration. Performed By: #### E NCSER ####[facility] LABCLIA [id number] [place] [address] NIF IFA, S Negative Normal Negative [facility] Comment on above: Order Comment: Tank rao Type: BLOOD SPECIMENOrdering Facility: [facility] Address: [address] [place] [address] Result Comment: ---- ADDITIONAL INFORMATION This test was developed and its performance characteristicsdetermined by [facility] in a manner consistent with CLIArequirements. This test has not been cleared or approved bythe .[place]. Food and Drug Administration. Performed By: #### E NCSER ####[facility] LABCLIA [id number] [place] [address] NMDA-R AB CBA, S Negative Normal Negative [facility] Comment on above: Order Comment: Tank rao Type: BLOOD SPECIMENOrdering Facility: [facility] Address: [address] [place] [address] Result Comment: ---- ADDITIONAL INFORMATION This test was developed and its performance characteristicsdetermined by [facility] in a manner consistent with CLIArequirements. This test has not been cleared or approved bythe U.S. Food and Drug Administration. Performed By: #### E NCSER ####[facility] LABCLIA [id number] [place] [address] PURKINJE CELL CYTO AB, TYPE 1 Negative Normal Negative [facility] Comment on above: Order Comment: Tank rao Type: BLOOD SPECIMENOrdering Facility: [facility] Address: [address] [place] [address] Result Comment: ---- ADDITIONAL INFORMATION This test was developed and its performance characteristicsdetermined by [facility] in a manner consistent with CLIArequirements. This test has not been cleared or approved bythe U.S. Food and Drug Administration. Performed By: #### E NCSER ####[facility] LABCLIA [id number] [place] [address] PURKINJE CELL CYTO AB, TYPE 2 Negative Normal Negative [facility] Comment on above: Order Comment: Tank rao Type: BLOOD SPECIMENOrdering Facility: [facility] Address: [address] [place] [address] Result Comment: ---- ADDITIONAL INFORMATION This test was developed and its performance characteristicsdetermined by [facility] in a manner consistent with CLIArequirements. This test has not been cleared or approved bythe U.S. Food and Drug Administration. Performed By: #### E NCSER ####[facility] LABCLIA [id number] [place] [address] PURKINJE CELL CYTO AB, TYPE TR Negative Normal Negative [facility] Comment on above: Order Comment: Tank rao Type: BLOOD SPECIMENOrdering Facility: [facility] Address: [address] [place] [address] Result Comment: ---- ADDITIONAL INFORMATION This test was developed and its performance characteristicsdetermined by [facility] in a manner consistent with CLIArequirements. This test has not been cleared or approved bythe U.S. Food and Drug Administration. Performed By: #### E NCSER ####[facility] LABCLIA [id number] [place] [id number] SEPTIN-7 IFA, S Negative Normal Negative [facility] Comment on above: Order Comment: Specsergio rao Type: BLOOD SPECIMENOrdering Facility: [facility] Address: [address] [place] [place] [id number] Result Comment: ---- ADDITIONAL INFORMATION This test was developed and its performance characteristicsdetermined by [facility] in a manner consistent with CLIArequirements. This test has not been cleared or approved bythe U.S. Food and Drug Administration.Test Performed by:[place] [id number] Director: Alberto Simeon M.D. Ph.D.; CLIA# [id number] Performed By: #### E NCSER ####[facility] LABCLIA [id number] [place] [address] CNDSon 10-04-2022 CNDS Normal [facility] NURSING PROGon 10-04-2022 NURSING PROG Normal [facility] 10OH-Carbazepine SerPl-mCnco n 10-03-2022 10-Hydroxycarbazepine [Mass/Vol] 30.7 ug/mL Normal 3.0-35.0 [facility] Comment on above: Order Comment: Specsergio rao Type: BLOOD SPECIMENOrdering Facility: [facility] Address: [address] [place] [address] Result Comment: This test was developed and its performance characteristics determined by [facility] [place] ([facility]). It has not been cleared or approved by the FDA. [facility] is regulated under CLIA as qualified to perform high-complexity testing. This test is used for clinical purposes. It should not be regarded as investigational or for research. Performed By: #### 3 1019-3 ####[facility] LABCLIA [id number] [place] [address] [place] CASE MGT INIT ASSESon 2022 CASE MGT INIT ASSES Normal [facility] CBC W Auto Differential pane l (Bld)on 10-03-2022 Basophils (Bld) [#/Vol] 0.08 10*3/uL Normal <0.11 [facility] Comment on above: Order Comment: Speci men Type: BLOOD SPECIMENOrdering Facility: [facility] Address: [address] [place] [address] Performed By: #### 5 7021-8 ####[facility] LABIA [id number] [address] [place] Basophils/100 WBC (Bld) 1.0 % Normal [facility] Comment on above: Order Comment: Speci men Type: BLOOD SPECIMENOrdering Facility: [facility] Address: [address] [place] [address] Performed By: #### 5 7021-8 ####[facility] LABIA [id number] [address] [place] Differential cell count method Nom (Bld) Auto Normal [facility] Comment on above: Order Comment: Speci men Type: BLOOD SPECIMENOrdering Facility: [facility] Address: [address] [place] [address] Performed By: #### 5 7021-8 ####[facility] LABCLIA [id number] [place] [address] [place] Eosinophils (Bld) [#/Vol] 0.14 10*3/uL Normal <0.46 [facility] Comment on above: Order Comment: Speci men Type: BLOOD SPECIMENOrdering Facility: [facility] Address: [address] Performed By: #### 5 7021-8 ####[facility] [facility] [id number] [place] [address] [place] Eosinophils/100 WBC (Bld) 1.8 % Normal [facility] Comment on above: Order Comment: Speci men Type: BLOOD SPECIMENOrdering Facility: [facility] Address: [address] Performed By: #### 5 7021-8 ####[facility]CLIA [id number] [place] [address] [place] Erythrocyte distribution width (RBC) [Ratio] 12.9 % Normal 11.5-15.0 [facility] Comment on above: Order Comment: Speci men Type: BLOOD SPECIMENOrdering Facility: [facility] Address: [address] Performed By: #### 5 7021-8 ####[facility]CLIA [id number] [place] [address] [place] Hematocrit (Bld) [Volume fraction] 36.2 % Normal 36.0-46.0 [facility] Comment on above: Order Comment: Speci men Type: BLOOD SPECIMENOrdering Facility: [facility] Address: [address] Performed By: #### 5 7021-8 ####[facility]CLIA [id number] [place] [address] [place] Hemoglobin (Bld) [Mass/Vol] 12.2 g/dL Normal 11.5-15.5 [facility] Comment on above: Order Comment: Speci men Type: BLOOD SPECIMENOrdering Facility: [facility] Address: [address] Performed By: #### 5 7021-8 ####[facility]CLIA [id number] [place] [address] [place] Immature granulocytes (Bld) [#/Vol] 0.04 10*3/uL Normal <0.10 [facility] Comment on above: Order Comment: Speci men Type: BLOOD SPECIMENOrdering Facility: [facility] Address: [address] [place] [address] Performed By: #### 5 7021-8 ####[facility]CLIA [id number] [address] [place] Immature granulocytes/100 WBC (Bld) 0.5 % Normal [facility] Comment on above: Order Comment: Speci men Type: BLOOD SPECIMENOrdering Facility: [facility] Address: [address] [place] [address] Performed By: #### 5 7021-8 ####[facility]CLIA [id number] [place] [address] [place] Lymphocytes (Bld) [#/Vol] 2.85 10*3/uL Normal 1.00-4.00 [facility] Comment on above: Order Comment: Speci men Type: BLOOD SPECIMENOrdering Facility: [facility] Address: [address] [place], [place] [address] Performed By: #### 5 7021-8 ####[facility]CLIA [id number] [place] [address] [place] Lymphocytes/100 WBC (Bld) 36.5 % Normal [facility] Comment on above: Order Comment: Speci men Type: BLOOD SPECIMENOrdering Facility: [facility] Address: [address] [place], [place] [address] Performed By: #### 5 7021-8 ####[facility]CLIA [id number] [place] [address] [place] MCH (RBC) [Entitic mass] 29.9 pg Normal 26.0-34.0 [facility] Comment on above: Order Comment: Speci men Type: BLOOD SPECIMENOrdering Facility: [facility] Address: [address] Performed By: #### 5 7021-8 ####[facility]CLIA [id number] [place] [address] [place] MCHC (RBC) [Mass/Vol] 33.7 g/dL Normal 30.5-36.0 [facility] Comment on above: Order Comment: Speci men Type: BLOOD SPECIMENOrdering Facility: [facility] Address: [address] [place] [address] Performed By: #### 5 7021-8 ####[facility] LABIA [id number] [place] [address] [place] MCV (RBC) [Entitic vol] 88.7 fL Normal 80.0-100.0 [facility] Comment on above: Order Comment: Speci men Type: BLOOD SPECIMENOrdering Facility: [facility] Address: [address] [place], [place] [address] Performed By: #### 5 7021-8 ####[facility] LABIA [id number] [place] [address] [place] Monocytes (Bld) [#/Vol] 0.64 10*3/uL Normal <0.87 [facility] Comment on above: Order Comment: Speci men Type: BLOOD SPECIMENOrdering Facility: [facility] Address: [address] Performed By: #### 5 7021-8 ####[facility] LABIA [id number] [place] [address] [place] Monocytes/100 WBC (Bld) 8.2 % Normal [facility] Comment on above: Order Comment: Speci men Type: BLOOD SPECIMENOrdering Facility: [facility] Address: [address] [place], [place] [address] Performed By: #### 5 7021-8 ####[facility]CLIA [id number] [place] [address] [place] Neutrophils (Bld) [#/Vol] 4.05 10*3/uL Normal 1.45-7.50 [facility] Comment on above: Order Comment: Speci men Type: BLOOD SPECIMENOrdering Facility: [facility] Address: [address] [place], [place] [address] Performed By: #### 5 7021-8 ####[facility]IA [id number] [place] [address] [place] Neutrophils/100 WBC (Bld) 52.0 % Normal [facility] Comment on above: Order Comment: Speci men Type: BLOOD SPECIMENOrdering Facility: [facility] Address: [address] [place], [place] [address] Performed By: #### 5 7021-8 ####[facility]CL[facility] [id number] [place] [address] [place] Nucleated RBC (Bld) [#/Vol] 10*3/uL Normal <0.01 [facility] Comment on above: Order Comment: Speci men Type: BLOOD SPECIMENOrdering Facility: [facility] Address: [address] [place], [place] [address] Performed By: #### 5 7021-8 ####[facility]CLIA [id number] [place] [address] [place] Nucleated RBC/100 WBC (Bld) [Ratio] 0.0 /100 WBC Normal [facility] Comment on above: Order Comment: Speci men Type: BLOOD SPECIMENOrdering Facility: [facility] Address: [address] [place], [place] [address] Performed By: #### 5 7021-8 ####[facility]CLIA [id number] [place] [address] [place] Platelet mean volume (Bld) [Entitic vol] 10.7 fL Normal 9.0-12.7 [facility] Comment on above: Order Comment: Speci men Type: BLOOD SPECIMENOrdering Facility: [facility] Address: [address] [place], [place] [address] Performed By: #### 5 7021-8 ####[facility]CLIA [id number] [place] [address] [place] Platelets (Bld) [#/Vol] 195 10*3/uL Normal 150-400 [facility] Comment on above: Order Comment: Speci men Type: BLOOD SPECIMENOrdering Facility: [facility] Address: [address] [place], [place] [address] Performed By: #### 5 7021-8 ####[facility]CLIA [id number] [place] [address] [place] RBC (Bld) [#/Vol] 4.08 10*6/uL Normal 3.90-5.20 [facility] Comment on above: Order Comment: Speci men Type: BLOOD SPECIMENOrdering Facility: [facility] Address: [address] [place], [place] [address] Performed By: #### 5 7021-8 ####[facility]CLIA [id number] [place] [address] [place] WBC (Bld) [#/Vol] 7.80 10*3/uL Normal 3.70-11.00 [facility] Comment on above: Order Comment: Speci men Type: BLOOD SPECIMENOrdering Facility: [facility] Address: [address] [place], [place] [address] Performed By: #### 5 7021-8 ####[facility]CLIA [id number] [place] [address] [place] Comprehensive metabolic 2000 panelon 10-03-2022 Albumin [Mass/Vol] 3.8 g/dL Low 3.9-4.9 [facility] Comment on above: Order Comment: Speci men Type: BLOOD SPECIMENOrdering Facility: [facility] Address: [place] [address] Performed By: #### 1 9123-9, 2777-1, 301-3, 33460-3 ####[facility]CLIA [id number] [place] [address] [place] ALP [Catalytic activity/Vol] 68 U/L Normal 34-123 [facility] Comment on above: Order Comment: Speci men Type: BLOOD SPECIMENOrdering Facility: [facility] Address: [address] [place] [address] Performed By: #### 1 9123-9, 2777-1, 3015-3, 23257-5 ####[facility] LABIA [id number] [place] [address] [place] ALT [Catalytic activity/Vol] 13 U/L Normal 7-38 [facility] Comment on above: Order Comment: Speci men Type: BLOOD SPECIMENOrdering Facility: [facility] Address: [address] [place], [place] [address] Performed By: #### 1 9123-9, 2777-1, 3015-3, 25231-9 ####[facility] LABIA [id number] [place] [address] [place] Anion gap [Moles/Vol] 9 mmol/L Normal 9-18 [facility] Comment on above: Order Comment: Speci men Type: BLOOD SPECIMENOrdering Facility: [facility] Address: [address] [place], [place] [address] Performed By: #### 1 9123-9, 2777-1, 3, 42506-1 ####[facility] LABCLIA [id number] [place] [address] [place] AST [Catalytic activity/Vol] 17 U/L Normal 13-35 [facility] Comment on above: Order Comment: Speci men Type: BLOOD SPECIMENOrdering Facility: [facility] Address: [address] [place], [place] [address] Performed By: #### 1 9123-9, 2777-1, 3, 07998-6 ####[facility]CLIA [id number] [place] [address] [place] Bilirubin [Mass/Vol] 0.2 mg/dL Normal 0.2-1.3 [facility] Comment on above: Order Comment: Speci men Type: BLOOD SPECIMENOrdering Facility: [facility] Address: [address] [place], [place] [address] Performed By: #### 1 9123-9, 277-, 3015-10, 26091-1 ####[facility]CLIA [id number] [place] [address] [place] Calcium [Mass/Vol] 8.7 mg/dL Normal 8.5-10.2 [facility] Comment on above: Order Comment: Speci men Type: BLOOD SPECIMENOrdering Facility: [facility] Address: [address] [place], [place] [address] Performed By: #### 1 9123-9, 27702-11, 3, ####[facility]CLIA [id number] [place] [address] [place] Chloride [Moles/Vol] 106 mmol/L High 97-105 [facility] Comment on above: Order Comment: Speci men Type: BLOOD SPECIMENOrdering Facility: [facility] Address: [address] [place] [address] Performed By: #### 1 9123-9, 277-, 3, 50743-4 ####[facility]CLIA [id number] [place] [address] [place] CO2 [Moles/Vol] 23 mmol/L Normal 22-30 [facility] Comment on above: Order Comment: Speci men Type: BLOOD SPECIMENOrdering Facility: [facility] Address: [address] [place] [address] Performed By: #### 1 9123-9, 2777-1, 3015-3, 19701-3 ####[facility]CLIA [id number] [place] [address] [place] Creatinine [Mass/Vol] 0.76 mg/dL Normal 0.58-0.96 [facility] Comment on above: Order Comment: Speci men Type: BLOOD SPECIMENOrdering Facility: [facility] Address: [address] [place] [address] Performed By: #### 1 9123-9, 277-, 3, 38238-6 ####[facility]CLIA [id number] [address] [place] OF [facility] ESTIMATED GLOMERULAR FILTRATION RATE 116 mL/min/1.73m??? Normal >=60 [facility] Comment on above: Order Comment: Speci men Type: BLOOD SPECIMENOrdering Facility: [facility] Address: [address] [place] [address] Result Comment: Zeynep mated Glomerular Filtration Rate (eGFR) is calculated using the 2020 CKD-EPI creatinine equation. This equation utilizes serum creatinine, sex, and age as parameters. The creatinine assay has traceable calibration to isotope dilution-mass spectrometry. Refer to KDIGO guidelines for clinical interpretation. In patients with unstable renal function, e.g. those with acute kidney injury, the eGFR may not accurately reflect actual GFR. Performed By: #### 1 9123-9, 2777-1, 3015-3, 03621-3 ####[facility] LABIA [id number] [place] [address] [place] Glucose [Mass/Vol] 122 mg/dL High 74-99 [facility] Comment on above: Order Comment: Speci men Type: BLOOD SPECIMENOrdering Facility: [facility] Address: [address] [place], [place] [address] [address] Result Comment: The [place] Diabetes Association (ADA) provides guidance for cutoff values for fasting glucose and random glucose. The ADA defines fasting as no caloric intake for at least 8 hours. Fasting plasma glucose results between 100 to 125 mg/dL indicate increased risk for diabetes (prediabetes).Fasting plasma glucose results greater than or equal to 126 mg/dL meet the criteria for diagnosis of diabetes. In the absence of unequivocal hyperglycemia, results should be confirmed by repeat testing. In a patient with classic symptoms of hyperglycemia or hyperglycemic crisis, random plasma glucose results greater than or equal to 200 mg/dL meet the criteria for diagnosis of diabetes.Reference: Standards of Medical Care in Diabetes 2016, [place] Diabetes Association. Diabetes Care. 2016.39(Suppl 1). Performed By: #### 1 9123-9, 2777-1, 3015-3, 23255-1 ####[facility] LABCLIA [id number] [place] [address] [place] Potassium [Moles/Vol] 3.8 mmol/L Normal 3.7-5.1 [facility] Comment on above: Order Comment: Speci men Type: BLOOD SPECIMENOrdering Facility: [facility] Address: [address] [place] [id number] Performed By: #### 1 9123-9, 2777, 3015-3, 96681-7 ####[facility] LABCLIA [id number] [place] [address] [place] Protein [Mass/Vol] 5.6 g/dL Low 6.3-8.0 [facility] Comment on above: Order Comment: Speci men Type: BLOOD SPECIMENOrdering Facility: [facility] Address: [place] [address] Performed By: #### 1 9123-9, 2777-, 3015-3, 31857-1 ####[facility] LABCLIA [id number] [place] [address] [place] Sodium [Moles/Vol] 138 mmol/L Normal 136-144 [facility] Comment on above: Order Comment: Speci men Type: BLOOD SPECIMENOrdering Facility: [facility] Address: [address] Performed By: #### 1 9123-9, 2777-1, 3016-3, 01634-5 ####[facility] LABCLIA [id number] [place] [address] [place] Urea nitrogen [Mass/Vol] 10 mg/dL Normal 7-21 [facility] Comment on above: Order Comment: Speci men Type: BLOOD SPECIMENOrdering Facility: [facility] Address: [address] [place] [address] Performed By: #### 1 9123-9, 2777-1, 3016-3, 15176-9 ####[facility] [id number] [place] [address] [place] HCG Preg Ur Qlon 10-03-2022 HCG ( test) Ql (U) Negative Normal Negative [facility] Comment on above: Order Comment: Speci men Type: URINE SPECIMENOrdering Facility: [facility] Address: [address] [place] [address] Result Comment: This test is intended to aid in the early detection of . Very dilute urine samples, as indicated by a low specific gravity, may not contain technical sales representative levels of hCG. This test detects intact hCG only. This test does not reliably detect hCG degradation products, including free-beta subunit and beta-core fragment. Therefore, this test may show reduced reactivity in urine after 8 weeks gestation. A number of conditions other than , including trophoblastic disease and certain non-trophoblastic neoplasms cause elevated levels of hCG. As with any assay employing mouse antibodies, the possibility exists for interference by human anti-mouse antibodies (HAMA) in the specimen. The test provides a presumptive diagnosis for . Performed By: #### 2 106-3 ####[facility] LABIA [id number] [place] [address] [place] HISTORY PHYSICALon 02-20-202 3 HISTORY PHYSICAL Normal [facility] LACOSAMIDEon 10-03-2022 DESMETHYLLACOSAMIDE <0.6 Normal <2.6 [facility] Comment on above: Order Comment: Tank rao Type: BLOOD SPECIMENOrdering Facility: [facility] Address: [address] [place] [address] Result Comment: Expe cted concentration of patients receiving 200-400 mg/day is up to 2.5 ug/mL for Desmethyllacosamide.This test was developed and its performance characteristics determined by [facility] [place] ([facility]). It has not been cleared or approved by the FDA. [facility] is regulated under CLIA as qualified to perform high-complexity testing. This test is used for clinical purposes. It should not be regarded as investigational or for research. Performed By: #### L ACOS ####[facility] LABCLIA [id number] [place] [address] [place] Lacosamide [Mass/Vol] 2.0 ug/mL Low 2.2-19.8 [facility] Comment on above: Order Comment: Tank rao Type: BLOOD SPECIMENOrdering Facility: [facility] Address: [address] [place] [address] Result Comment: Expe cted concentration of patients receiving 200-400 mg/day is 2.2-19.8 ug/mL for Lacosamide.This test was developed and its performance characteristics determined by [facility] [place] ([facility]). It has not been cleared or approved by the FDA. [facility] is regulated under CLIA as qualified to perform high-complexity testing. This test is used for clinical purposes. It should not be regarded as investigational or for research. Performed By: #### L ACOS ####[facility] LABCLIA [id number] [place] [address] [place] Magnesium SerPl-mCncon 10-03 Magnesium [Mass/Vol] 2.0 mg/dL Normal 1.7-2.3 [facility] Comment on above: Order Comment: Speci men Type: BLOOD SPECIMENOrdering Facility: [facility] Address: [address] [place] [address] Performed By: #### 1 9123-9, 2777-1, 3016-3, 68925-2 ####[facility] LABCLIA [id number] [place] [address] [place] PT panel Coag (PPP)on 2022 INR Coag (PPP) [Relative time] 1.1 {INR} Normal 0.9-1.3 [facility] Comment on above: Order Comment: Tank rao Type: BLOOD SPECIMENOrdering Facility: [facility] Address: [address] [place] [address] Result Comment: Liliam min K Antagonist (VKA) Therapeutic Range: INR 2 to 3 (Target INR of 2.5)Note: For patients treated with VKA drugs, such as warfarin, the [employer] 2012 Guideline recommends a therapeutic INR range of 2 to 3 (target INR of 2.5). This recommendation includes high-risk patients with antiphospholipid syndrome with previous arterial or venous thromboembolism, current-generation mechanical or bioprosthetic aortic heart valve replacement.Note: Patients with mechanical aortic valve replacement and additional risk factors for thromboembolic events (atrial fibrillation, previous thromboembolism, LV dysfunction, hypercoagulable conditions) or an older generation mechanical AVR (i.e., ball in-Cage) or any mechanical MVR should have a INR therapeutic range of 2.5 to 3.5 (target INR of 3).Preeti MAY, et al. Chest 2012, 141:7S-47SNishimkoki RA, et al. [facility] 2017, 70: 252-289 Performed By: #### 3 4528-0, 98374-7 ####[facility] LABCLIA [id number] [place] [address] [place] PT Coag (PPP) [Time] 10.9 s Normal 9.7-13.0 [facility] Comment on above: Order Comment: Speci men Type: BLOOD SPECIMENOrdering Facility: [facility] Address: [address] [place] [address] Performed By: #### 3 4528-0, 72310-0 ####[facility] LABCLIA [id number] [place] [address] [place] Phosphate SerPl-mCncon 10-03 Phosphate [Mass/Vol] 3.3 mg/dL Normal 2.7-4.8 [facility] Comment on above: Order Comment: Speci men Type: BLOOD SPECIMENOrdering Facility: [facility] Address: [address] [place] [address] Performed By: #### 1 9123-9, 2777-1, 3016-3, 71079-3 ####[facility] LABIA [id number] [place] [address] [place] SARS-CoV-2 RNA Resp Ql CHARLINE+p robeon 10-03-2022 SARS-CoV-2 (COVID-19) RNA CHARLINE+probe Ql (Resp) COVID 19 RESULT: Not detected The method used is RT-PCR or an equivalent NAAT method. Reference Range(the expected result in uninfected individuals): Not detected Normal [facility] Comment on above: Performed By: #### 9 4500-6 ####[facility] LABCLIA [id number] [place] [address] [place] TOX SCREEN ROUT URon 023 Amphetamines Confirm (U) [Mass/Vol] Negative Normal Negative [facility] Comment on above: Order Comment: Speci men Type: URINE SPECIMENOrdering Facility: [facility] Address: [address] Result Comment: Cuto ff threshold at 1000 ng/mL. Performed By: #### U TOX2 ####[facility] LABCLIA [id number] [place] [address] [place] BARBITURATES, URINE Negative Normal Negative [facility] Comment on above: Order Comment: Speci men Type: URINE SPECIMENOrdering Facility: [facility] Address: [address] [place] [address] Result Comment: Cuto ff threshold at 200 ng/mL. Performed By: #### U TOX2 ####[facility] LABCLIA [id number] [place] [address] [place] BENZODIAZEPINES, UR Negative Normal Negative [facility] Comment on above: Order Comment: Speci men Type: URINE SPECIMENOrdering Facility: [facility] Address: [address] [place] [address] Result Comment: Cuto ff threshold at 200 ng/mL. Performed By: #### U TOX2 ####[facility]CLIA [id number] [place] [address] [place] CANNABINOIDS,URINE Negative Normal Negative [facility] Comment on above: Order Comment: Speci men Type: URINE SPECIMENOrdering Facility: [facility] Address: [address] [place] [address] Result Comment: Cuto ff threshold at 50 ng/mL. Performed By: #### U TOX2 ####[facility] LABCLIA [id number] [place] [address] [place] Cocaine Ql (U) Negative Normal Negative [facility] Comment on above: Order Comment: Speci men Type: URINE SPECIMENOrdering Facility: [facility] Address: [address] [address] Result Comment: Cuto ff threshold at 300 ng/mL. Performed By: #### U TOX2 ####[facility] LABCLIA [id number] [place] [address] [place] Ethanol (U) [Mass/Vol] <11 Normal <11 [facility] Comment on above: Order Comment: Speci men Type: URINE SPECIMENOrdering Facility: [facility] Address: [address] [place] [address] Performed By: #### U TOX2 ####[facility] LABIA [id number] [address] Opiates Screen Ql (U) Negative Normal Negative [facility] Comment on above: Order Comment: Speci men Type: URINE SPECIMENOrdering Facility: [facility] Address: [address] [place] [address] Result Comment: Cuto ff threshold at 300 ng/mL. Performed By: #### U TOX2 ####[facility] LABIA [id number] [address] [place] oxyCODONE cutoff Screen (U) [Mass/Vol] Negative Normal Negative [facility] Comment on above: Order Comment: Speci men Type: URINE SPECIMENOrdering Facility: [facility] Address: [address] [place] [address] Result Comment: Cuto ff threshold at 100 ng/mL. Performed By: #### U TOX2 ####[facility] [id number] [address] [place] Phencyclidine Ql (U) Negative Normal Negative [facility] Comment on above: Order Comment: Speci men Type: URINE SPECIMENOrdering Facility: [facility] Address: [address] [place] [address] Result Comment: Cuto ff threshold at 25 ng/mL. Performed By: #### U TOX2 ####[facility] LABIA [id number] [place] [address] [place] TSH SerPl-aCncon 10-03-2022 TSH Qn 1.210 m[IU]/L Normal 0.510-4.30 0 [facility] Comment on above: Order Comment: Speci men Type: BLOOD SPECIMENOrdering Facility: [facility] Address: [address] [place] [address] Result Comment: If t he patient is , TSH reference range varies by gestational period:First Trimester (weeks 9-12): 0.180-2.990 mIU/LSecond Trimester: 0.110-3.980 mIU/LThird Trimester: 0.480-4.710 mIU/Tyler Odonnell et al. A Practical Approach for the Verifications and Determination of Site- and Trimester-Specific Reference Intervals for Thyroid Function tests in . Thyroid, 2019:29:3:412-420. Eduardo E, et al. 2017 Guidelines of the [place] Thyroid Association for the Diagnosis and Management of Thyroid Disease during and the . Thyroid, 2017:27:3:315-389.Reference ranges were not locally established for this patient's age group.The normal values are based on the following source: Frances W, Michelle V. Reference Ranges for Adults and Children: Pre-analytical Considerations. [employer]olog[employer]am Performed By: #### 1 9123-9, 2777-1, 3016-3, 09068-1 ####[facility] LABIA [id number] [place] [address] [place] aPTT PPPon 10-03-2022 aPTT Coag (PPP) [Time] 26.2 s Normal 23.0-32.4 [facility] Comment on above: Order Comment: Speci men Type: BLOOD SPECIMENOrdering Facility: [facility] Address: [address] [place] [address] Performed By: #### 3 4528-0, 21463-7 ####[facility] LABIA [id number] [place] [address] [place] Albumin [Mass/volume] in Ser um or PlasmaOrdered By: Shashi Ornelas on 10-02-2022 Albumin [Mass/Vol] 4.5 g/dL 3.2-5.5 [facility] Automated erythrocytes count in urine sediment (number/area)Ordered By: Shashi Ornelas on 10-02-2022 RBC Auto (Urine sed) [#/Area] Innumerable [HPF] 0-4 [facility] Automated leukocytes count i n urine sediment (number/area)Ordered By: Shashi Ornelas on 10-02-2022 WBC Auto (Urine sed) [#/Area] 5-9 [HPF] 0-4 [facility] Basophils Auto (Bld) [#/Vol] Ordered By: Shashi Ornelas on 10-02-2022 Basophils (Bld) [#/Vol] 0.1 10*3/uL 0.0-0.2 [facility] Basophils/100 WBC Auto (Bld) Ordered By: Shashi Ornelas on 10-02-2022 Basophils/100 WBC (Bld) 0.5 % . [facility] Bilirubin Test strip Ql (U)O rdered By: Shashi Ornelas on 10-02-2022 Bilirubin Ql (U) Negative Negative [facility] COVID CepheidOrdered By: Milton fazalnirmala Ornelas on 10-02-2022 SARS-CoV-2 (COVID-19) Ab IA Ql Negative Negative [facility] Comment on above: This is a duplicate [employer] Xpert Xpress CoV-2/Flu/RSV Plus RNA by RT-PCR result to be used for statistical tracking purpose only. SARS-CoV-2 (COVID-19) RNA CHARLINE+probe Ql (Unsp spec) [facility] Color Auto (U)Ordered By: Bree Ornelas on 10-02-2022 Color (U) Yellow Yellow [facility] Creatinine and Glomerular fi ltration rate.predicted panel (S/P/Bld)Ordered By: Shashi Ornelas on 10-02-2022 Creatinine [Mass/Vol] 0.84 mg/dL 0.44-1.03 [facility] Eosinophils Auto (Bld) [#/Vo l]Ordered By: Shashi Ornelas on 10-02-2022 Eosinophils (Bld) [#/Vol] 0.1 10*3/uL 0.0-0.45 [facility] Eosinophils/100 WBC Auto (Bl d)Ordered By: Shashi Ornelas on 10-02-2022 Eosinophils/100 WBC (Bld) 0.7 % . [facility] Erythrocyte distribution wid th Auto (RBC) [Ratio]Ordered By: Shashi Ornelas on 10-02-2022 Erythrocyte distribution width (RBC) [Ratio] 13.7 % 11.9-15.3 [facility] Estimated glomerular filtrat ion rate (GFR) non- AmericanOrdered By: Shashi Ornelas on 10-02-2022 GFR/1.73 sq M.predicted among non-blacks MDRD (S/P/Bld) [Vol rate/Area] > 60 mL/Min [facility] Globulin Calc (S) [Mass/Vol] Ordered By: Shashi Ornelas on 10-02-2022 Globulin (S) [Mass/Vol] 2.8 g/dL [facility] HCG ( test) IA.rapi d Ql (U)Ordered By: Shashi Ornelas on 10-02-2022 HCG ( test) Ql (U) Negative [facility] Hematocrit Auto (Bld) [Volum e fraction]Ordered By: Shashi Ornelas on 10-02-2022 Hematocrit (Bld) [Volume fraction] 43.3 % 34.0-46.4 [facility] Hemoglobin [Mass/volume] in BloodOrdered By: Shashi Ornelas on 10-02-2022 Hemoglobin (Bld) [Mass/Vol] 14.4 g/dL 11.8-15.4 [facility] Ketones Auto test strip (U) [Mass/Vol]Ordered By: Shashi Ornelas on 10-02-2022 Ketones (U) [Mass/Vol] Trace Negative [facility] - Chemistry and C hemistry - challengeOrdered By: Shashi Ornelas on 10-02-2022 Lipase [Catalytic activity/Vol] 29.0 U/L 22-51 [facility] Magnesium [Mass/Vol] 1.9 mg/dL 1.6-2.6 [facility] Laboratory - UrinalysisOrder ed By: Shashi Ornelas on 10-02-2022 Hyaline casts LM Ql (Urine sed) 0-8 [LPF] 0-8 [facility] Leukocytes [#/volume] correc deni for nucleated erythrocytes in Blood by Automated counOrdered By: Shashi Ornelas on 10-02-2022 WBC corrected for nucl RBC Auto (Bld) [#/Vol] 10.8 10*3/uL 3.8-11.6 [facility] Lymphocytes Auto (Bld) [#/Vo l]Ordered By: Shashi Ornelas on 10-02-2022 Lymphocytes (Bld) [#/Vol] 1.3 10*3/uL 1.00-4.8 [facility] Lymphocytes/100 WBC Auto (Bl d)Ordered By: Shashi Ornelas on 10-02-2022 Lymphocytes/100 WBC (Bld) 12.1 % . [facility] MCH Auto (RBC) [Entitic mass ]Ordered By: Shashi Ornelas on 10-02-2022 MCH (RBC) [Entitic mass] 29.8 pg 24.7-34.3 [facility] MCHC Auto (RBC) [Mass/Vol]Or dered By: Shashi Ornelas on 10-02-2022 MCHC (RBC) [Mass/Vol] 33.4 g/dL 32.0-35.0 [facility] MCV Auto (RBC) [Entitic vol] Ordered By: Shashi Ornelas on 10-02-2022 MCV (RBC) [Entitic vol] 89.3 fL 80-100 [facility] Monocyte distribution width [Entitic volume] in Blood by AutomatedOrdered By: Shashi Ornelas on 10-02-2022 Monocyte distribution width Auto (Bld) [Entitic vol] 18.87 % 0.00-20.00 [facility] Monocytes Auto (Bld) [#/Vol] Ordered By: Shashi Ornelas on 10-02-2022 Monocytes (Bld) [#/Vol] 0.6 10*3/uL 0.0-0.8 [facility] Monocytes/100 WBC Auto (Bld) Ordered By: Shashi Ornelas on 10-02-2022 Monocytes/100 WBC (Bld) 5.2 % . [facility] Neutrophils Auto (Bld) [#/Vo l]Ordered By: Shashi Ornelas on 10-02-2022 Neutrophils (Bld) [#/Vol] 8.8 10*3/uL 1.8-7.7 [facility] Neutrophils/100 WBC Auto (Bl d)Ordered By: Shashi Ornelas on 10-02-2022 Neutrophils/100 WBC (Bld) 81.5 % . [facility] Nitrite Test strip Ql (U)Ord ered By: Shashi Ornelas on 10-02-2022 Nitrite Ql (U) Negative Negative [facility] No Panel InformationOrdered By: Shashi Ornelas on 10-02-2022 Estimated GFR () > 60 mL/Min [facility] Comment on above: GFR estimated refere nce range: According to KDOQI guidelines, <60 ml/min/1.73m2 is sufficient to diagnose a patient with chronic kidney disease. Pharmacy Creatinine Clearance (Chem 81.29 [facility] Nucleated erythrocytes [Pres ence] in Blood by Automated countOrdered By: Shashi Ornelas on 10-02-2022 Nucleated RBC Auto Ql (Bld) 0.0 /100{WBC} 0-0.5 [facility] Phosphate [Mass/volume] in S nury or PlasmaOrdered By: Shashi Ornelas on 10-02-2022 Phosphate [Mass/Vol] 2.9 mg/dL 2.5-4.6 [facility] Platelet mean volume Auto (B ld) [Entitic vol]Ordered By: Shashi Ornelas on 10-02-2022 Platelet mean volume (Bld) [Entitic vol] 9.2 fL 6.3-10.7 [facility] Platelets Auto (Bld) [#/Vol] Ordered By: Shashi Ornelas on 10-02-2022 Platelets (Bld) [#/Vol] 211 10*3/uL 150-450 [facility] Prolactin [Mass/volume] in S nury or PlasmaOrdered By: Shashi Ornelas on 10-02-2022 Prolactin [Mass/Vol] 48.05 ng/mL 3.34-26.72 [facility] Protein Auto test strip (U) [Mass/Vol]Ordered By: Shashi Ornelas on 10-02-2022 Protein (U) [Mass/Vol] 30 mg/dL Negative [facility] Protein [Mass/volume] in Ser um or PlasmaOrdered By: Shashi Ornelas on 10-02-2022 Protein [Mass/Vol] 7.3 g/dL 6.1-7.9 [facility] RBC Auto (Bld) [#/Vol]Ordere d By: Shashi Ornelas on 10-02-2022 RBC (Bld) [#/Vol] 4.84 10*6/uL 3.60-5.00 [facility] Serum or plasma alanine greene otransferase measurement without P-5'-P (enzymatic activiOrdered By: Shashi Ornelas on 10-02-2022 ALT No additional P-5'-P [Catalytic activity/Vol] 16 U/L 10-60 [facility] Serum or plasma albumin/glob ulin mass ratioOrdered By: Shashi Ornelas on 10-02-2022 Albumin/Globulin [Mass ratio] 1.6 {ratio} [facility] Serum or plasma alkaline donna sphatase measurement (enzymatic activity/volume)Ordered By: Shashi Ornelas on 10-02-2022 ALP [Catalytic activity/Vol] 78 U/L 32-92 [facility] Serum or plasma anion gap de terminationOrdered By: Shashi Ornelas on 10-02-2022 Anion gap [Moles/Vol] 11.0 mmol/L 6.0-15.0 [facility] Serum or plasma aspartate am inotransferase measurement (enzymatic activity/volume)Ordered By: Shashi Ornelas on 10-02-2022 AST [Catalytic activity/Vol] 20 U/L 10-42 [facility] Serum or plasma calcium france urement (mass/volume)Ordered By: Shashi Ornelas on 10-02-2022 Calcium [Mass/Vol] 9.2 mg/dL 8.2-10.2 [facility] Serum or plasma chloride jaonne surement (moles/volume)Ordered By: Shashi Ornelas on 10-02-2022 Chloride [Moles/Vol] 102 mmol/L 95-114 [facility] Serum or plasma glucose france urement (mass/volume)Ordered By: Shashi Ornelas on 10-02-2022 Glucose [Mass/Vol] 146 mg/dL 70-100 [facility] Comment on above: ADA recommended refe rence rangeRandom Glucose Reference Range is dependent on time and content of last meal. Glucose of more than 200 mg/dL in a nonstressed, ambulatory subject supports the diagnosis of Diabetes Mellitus. Serum or plasma potassium me asurement (moles/volume)Ordered By: Shashi Ornelas on 10-02-2022 Potassium [Moles/Vol] 3.7 mmol/L 3.5-5.1 [facility] Serum or plasma sodium measu rement (moles/volume)Ordered By: Shasih Ornelas on 10-02-2022 Sodium [Moles/Vol] 135 mmol/L 136-146 [facility] Serum or plasma total biliru bin measurement (mass/volume)Ordered By: Shashi Ornelas on 10-02-2022 Bilirubin [Mass/Vol] 0.3 mg/dL 0.3-1.2 [facility] Serum or plasma total carbon dioxide measurement (moles/volume)Ordered By: Shashi Ornelas on 10-02-2022 CO2 [Moles/Vol] 25.7 mmol/L 22.0-30.0 [facility] Serum or plasma urea nitroge n measurement (mass/volume)Ordered By: Shashi Ornelas on 10-02-2022 Urea nitrogen [Mass/Vol] 14 mg/dL 9-23 [facility] Specific gravity Auto test s trip (U) [Rel density]Ordered By: Shashi Ornelas on 10-02-2022 Specific gravity (U) [Rel density] 1.028 1.001-1.03 0 [facility] Squamous epithelial cells de tection in urine sediment by light microscopyOrdered By: Shashi Ornelas on 10-02-2022 Epithelial cells.squamous LM Ql (Urine sed) 3-4 [HPF] 0-2 [facility] Urine bacteria detection by automated methodOrdered By: Shashi Ornelas on 10-02-2022 Bacteria Auto Ql (U) None seen None Seen [facility] Urine clarity by refractomet ry automatedOrdered By: Shashi Ornelas on 10-02-2022 Clarity Refractometry automated (U) Clear Clear [facility] Urine glucose measurement by automated test strip (mass/volume)Ordered By: Shashi Ornelas on 10-02-2022 Glucose Auto test strip (U) [Mass/Vol] Normal mg/dL Normal [facility] Urine hemoglobin detection b y automated test stripOrdered By: Shashi Ornelas on 10-02-2022 Hemoglobin Auto test strip Ql (U) 3+ Negative [facility] Urine leukocyte esterase det ection by automated test stripOrdered By: Shashi Ornelas on 10-02-2022 Leukocyte esterase Auto test strip Ql (U) 2+ Negative [facility] Urobilinogen Auto test strip (U) [Mass/Vol]Ordered By: Shashi Ornelas on 10-02-2022 Urobilinogen (U) [Mass/Vol] Normal mg/dL Normal [facility] WBC Auto (Bld) [#/Vol]Ordere d By: Shashi Ornelas on 10-02-2022 WBC (Bld) [#/Vol] 10.8 10*3/uL 3.8-11.6 [facility] pH Auto test strip (U)Ordere d By: Shashi Ornelas on 10-02-2022 pH (U) 7.0 [pH] 5.0-9.0 [facility] EPIL ANA SPONTANEOUS BRAIN A CTIVTYon 09-16-2022 [facility] No Panel Informationon 09-08 [facility] Albumin [Mass/volume] in Ser um or PlasmaOrdered By: Madiha Funk on 08-25-2022 Albumin [Mass/Vol] 4.4 g/dL 3.2-5.5 [facility] Automated erythrocytes count in urine sediment (number/area)Ordered By: Madiha Funk on 08-25-2022 RBC Auto (Urine sed) [#/Area] 10-19 [HPF] 0-4 [facility] Automated leukocytes count i n urine sediment (number/area)Ordered By: Madiha Funk on 08-25-2022 WBC Auto (Urine sed) [#/Area] 20-49 [HPF] 0-4 [facility] Basophils Auto (Bld) [#/Vol] Ordered By: PROVIDER TEMP on 08-25-2022 Basophils (Bld) [#/Vol] 0.0 10*3/uL 0.0-0.2 [facility] Basophils/100 WBC Auto (Bld) Ordered By: PROVIDER TEMP on 08-25-2022 Basophils/100 WBC (Bld) 0.7 % . [facility] Bilirubin Test strip Ql (U)O rdered By: Madiha Funk on 08-25-2022 Bilirubin Ql (U) Negative Negative [facility] COVID-19 SOFIAOrdered By: Cody Funk on 08-25-2022 SARS-CoV+SARS-CoV-2 (COVID-19) Ag IA.rapid Ql (Resp) Negative Negative [facility] Comment on above: This is a duplicate Eduarda SARS Antigen (JUVENCIO) result to be used for statistical tracking purpose only. Color Auto (U)Ordered By: Cody Funk on 08-25-2022 Color (U) Yellow Yellow [facility] Creatinine and Glomerular fi ltration rate.predicted panel (S/P/Bld)Ordered By: Madiha Funk on 08-25-2022 Creatinine [Mass/Vol] 0.97 mg/dL 0.44-1.03 [facility] Eosinophils Auto (Bld) [#/Vo l]Ordered By: PROVIDER TEMP on 08-25-2022 Eosinophils (Bld) [#/Vol] 0.1 10*3/uL 0.0-0.45 [facility] Eosinophils/100 WBC Auto (Bl d)Ordered By: PROVIDER TEMP on 08-25-2022 Eosinophils/100 WBC (Bld) 1.9 % . [facility] Erythrocyte distribution wid th Auto (RBC) [Ratio]Ordered By: PROVIDER TEMP on 08-25-2022 Erythrocyte distribution width (RBC) [Ratio] 14.1 % 11.9-15.3 [facility] Estimated glomerular filtrat ion rate (GFR) non- AmericanOrdered By: Madiha Funk on 08-25-2022 GFR/1.73 sq M.predicted among non-blacks MDRD (S/P/Bld) [Vol rate/Area] > 60 mL/Min [facility] Globulin Calc (S) [Mass/Vol] Ordered By: Madiha Funk on 08-25-2022 Globulin (S) [Mass/Vol] 2.5 g/dL [facility] Glucose Glucometer (BldC) [M ass/Vol]Ordered By: PROVIDER TEMP on 08-25-2022 Glucose [Mass/Vol] 83 mg/dL [facility] Comment on above: Random Glucose Refer ence Range is dependent on time and content of last meal. Glucose of more than 200 mg/dL in a nonstressed, ambulatory subject supports the diagnosis of Diabetes Mellitus. HCG ( test) IA.rapi d Ql (U)Ordered By: Madiha Funk on 08-25-2022 HCG ( test) Ql (U) Negative [facility] Hematocrit Auto (Bld) [Volum e fraction]Ordered By: PROVIDER TEMP on 08-25-2022 Hematocrit (Bld) [Volume fraction] 42.3 % 34.0-46.4 [facility] Hemoglobin [Mass/volume] in BloodOrdered By: PROVIDER TEMP on 08-25-2022 Hemoglobin (Bld) [Mass/Vol] 13.7 g/dL 11.8-15.4 [facility] Ketones Auto test strip (U) [Mass/Vol]Ordered By: Madiha Funk on 08-25-2022 Ketones (U) [Mass/Vol] Trace Negative [facility] - Chemistry and C hemistry - challengeOrdered By: Madiha Funk on 08-25-2022 Magnesium [Mass/Vol] 1.9 mg/dL 1.6-2.6 [facility] Laboratory - UrinalysisOrder ed By: Madiha Funk on 08-25-2022 Hyaline casts LM Ql (Urine sed) 0-8 [LPF] 0-8 [facility] Leukocytes [#/volume] correc deni for nucleated erythrocytes in Blood by Automated counOrdered By: PROVIDER TEMP on 08-25-2022 WBC corrected for nucl RBC Auto (Bld) [#/Vol] 6.5 10*3/uL 3.8-11.6 [facility] Lymphocytes Auto (Bld) [#/Vo l]Ordered By: PROVIDER TEMP on 08-25-2022 Lymphocytes (Bld) [#/Vol] 1.9 10*3/uL 1.00-4.8 [facility] Lymphocytes/100 WBC Auto (Bl d)Ordered By: PROVIDER TEMP on 08-25-2022 Lymphocytes/100 WBC (Bld) 28.7 % . [facility] MCH Auto (RBC) [Entitic mass ]Ordered By: PROVIDER TEMP on 08-25-2022 MCH (RBC) [Entitic mass] 29.4 pg 24.7-34.3 [facility] MCHC Auto (RBC) [Mass/Vol]Or dered By: PROVIDER TEMP on 08-25-2022 MCHC (RBC) [Mass/Vol] 32.4 g/dL 32.0-35.0 [facility] MCV Auto (RBC) [Entitic vol] Ordered By: PROVIDER TEMP on 08-25-2022 MCV (RBC) [Entitic vol] 90.6 fL 80-100 [facility] Monocyte distribution width [Entitic volume] in Blood by AutomatedOrdered By: PROVIDER TEMP on 08-25-2022 Monocyte distribution width Auto (Bld) [Entitic vol] 15.89 % 0.00-20.00 [facility] Monocytes Auto (Bld) [#/Vol] Ordered By: PROVIDER TEMP on 08-25-2022 Monocytes (Bld) [#/Vol] 0.5 10*3/uL 0.0-0.8 [facility] Monocytes/100 WBC Auto (Bld) Ordered By: PROVIDER TEMP on 08-25-2022 Monocytes/100 WBC (Bld) 7.3 % . [facility] Neutrophils Auto (Bld) [#/Vo l]Ordered By: PROVIDER TEMP on 08-25-2022 Neutrophils (Bld) [#/Vol] 4.0 10*3/uL 1.8-7.7 [facility] Neutrophils/100 WBC Auto (Bl d)Ordered By: PROVIDER TEMP on 08-25-2022 Neutrophils/100 WBC (Bld) 61.4 % . [facility] Nitrite Test strip Ql (U)Ord ered By: Madiha Funk on 08-25-2022 Nitrite Ql (U) Negative Negative [facility] No Panel InformationOrdered By: Madiha Funk on 08-25-2022 SARS Antigen (LFIA) [facility] Estimated GFR () > 60 mL/Min [facility] Comment on above: GFR estimated refere nce range: According to KDOQI guidelines, <60 ml/min/1.73m2 is sufficient to diagnose a patient with chronic kidney disease. Lamotrigine (Lamictal) Level 6.1 ug/mL 2.0-20.0 [facility] Comment on above: Detection Limit = 1. 0Performed at: - [facility] [id number] Director: Brent Alves MD, Phone: [phone] Pharmacy Creatinine Clearance (Chem 74.37 [facility] Nucleated erythrocytes [Pres ence] in Blood by Automated countOrdered By: PROVIDER TEMP on 08-25-2022 Nucleated RBC Auto Ql (Bld) 0.1 /100{WBC} 0-0.5 [facility] Platelet mean volume Auto (B ld) [Entitic vol]Ordered By: PROVIDER TEMP on 08-25-2022 Platelet mean volume (Bld) [Entitic vol] 9.0 fL 6.3-10.7 [facility] Platelets Auto (Bld) [#/Vol] Ordered By: PROVIDER TEMP on 08-25-2022 Platelets (Bld) [#/Vol] 202 10*3/uL 150-450 [facility] Prolactin [Mass/volume] in S nury or PlasmaOrdered By: Madiha Funk on 08-25-2022 Prolactin [Mass/Vol] 14.22 ng/mL 3.34-26.72 [facility] Protein Auto test strip (U) [Mass/Vol]Ordered By: Madiha Funk on 08-25-2022 Protein (U) [Mass/Vol] Negative Negative [facility] Protein [Mass/volume] in Ser um or PlasmaOrdered By: Madiha Funk on 08-25-2022 Protein [Mass/Vol] 6.9 g/dL 6.1-7.9 [facility] RBC Auto (Bld) [#/Vol]Ordere d By: PROVIDER TEMP on 08-25-2022 RBC (Bld) [#/Vol] 4.67 10*6/uL 3.60-5.00 [facility] Serum or plasma alanine greene otransferase measurement without P-5'-P (enzymatic activiOrdered By: Madiha Funk on 08-25-2022 ALT No additional P-5'-P [Catalytic activity/Vol] 17 U/L 10-60 [facility] Serum or plasma albumin/glob ulin mass ratioOrdered By: Madiha Funk on 08-25-2022 Albumin/Globulin [Mass ratio] 1.8 {ratio} [facility] Serum or plasma alkaline donna sphatase measurement (enzymatic activity/volume)Ordered By: Madiha Funk on 08-25-2022 ALP [Catalytic activity/Vol] 61 U/L 32-92 [facility] Serum or plasma anion gap de terminationOrdered By: Madiha Funk on 08-25-2022 Anion gap [Moles/Vol] 12.1 mmol/L 6.0-15.0 [facility] Serum or plasma aspartate am inotransferase measurement (enzymatic activity/volume)Ordered By: Madiha Funk on 08-25-2022 AST [Catalytic activity/Vol] 19 U/L 10-42 [facility] Serum or plasma calcium france urement (mass/volume)Ordered By: Madiha Fukn on 08-25-2022 Calcium [Mass/Vol] 9.6 mg/dL 8.2-10.2 [facility] Serum or plasma chloride joanne surement (moles/volume)Ordered By: Madiha Funk on 08-25-2022 Chloride [Moles/Vol] 101 mmol/L 95-114 [facility] Serum or plasma glucose france urement (mass/volume)Ordered By: Madiha Funk on 08-25-2022 Glucose [Mass/Vol] 88 mg/dL 70-100 [facility] Comment on above: ADA recommended refe rence rangeRandom Glucose Reference Range is dependent on time and content of last meal. Glucose of more than 200 mg/dL in a nonstressed, ambulatory subject supports the diagnosis of Diabetes Mellitus. Serum or plasma potassium me asurement (moles/volume)Ordered By: Madiha Funk on 08-25-2022 Potassium [Moles/Vol] 4.1 mmol/L 3.5-5.1 [facility] Serum or plasma sodium measu rement (moles/volume)Ordered By: Madiha Funk on 08-25-2022 Sodium [Moles/Vol] 133 mmol/L 136-146 [facility] Serum or plasma total biliru bin measurement (mass/volume)Ordered By: Madiha Funk on 08-25-2022 Bilirubin [Mass/Vol] 0.7 mg/dL 0.3-1.2 [facility] Serum or plasma total carbon dioxide measurement (moles/volume)Ordered By: Madiha Funk on 08-25-2022 CO2 [Moles/Vol] 24.0 mmol/L 22.0-30.0 [facility] Serum or plasma urea nitroge n measurement (mass/volume)Ordered By: Madiha Funk on 08-25-2022 Urea nitrogen [Mass/Vol] 13 mg/dL 9-23 [facility] Specific gravity Auto test s trip (U) [Rel density]Ordered By: Madiha Funk on 08-25-2022 Specific gravity (U) [Rel density] 1.029 1.001-1.03 0 [facility] Squamous epithelial cells de tection in urine sediment by light microscopyOrdered By: Madiha Funk on 08-25-2022 Epithelial cells.squamous LM Ql (Urine sed) 1-2 [HPF] 0-2 [facility] Urine bacteria detection by automated methodOrdered By: Madiha Funk on 08-25-2022 Bacteria Auto Ql (U) None seen None Seen [facility] Urine clarity by refractomet ry automatedOrdered By: Madiha Funk on 08-25-2022 Clarity Refractometry automated (U) Clear Clear [facility] Urine culture routineOrdered By: Madiha Funk on 08-25-2022 Bacteria identified Cx Nom (U) Enterococcus faecalis [facility] Urine glucose measurement by automated test strip (mass/volume)Ordered By: Madiha Funk on 08-25-2022 Glucose Auto test strip (U) [Mass/Vol] Normal mg/dL Normal [facility] Urine hemoglobin detection b y automated test stripOrdered By: Madiha Funk on 08-25-2022 Hemoglobin Auto test strip Ql (U) Negative Negative [facility] Urine lactic acid measuremen tOrdered By: Leif Funk on 08-25-2022 Lactate (U) [Moles/Vol] 0.8 mmol/L 0.5-2.2 [facility] Urine leukocyte esterase det ection by automated test stripOrdered By: Madiha Funk on 08-25-2022 Leukocyte esterase Auto test strip Ql (U) 2+ Negative [facility] Urobilinogen Auto test strip (U) [Mass/Vol]Ordered By: Madiha Funk on 08-25-2022 Urobilinogen (U) [Mass/Vol] Normal mg/dL Normal [facility] WBC Auto (Bld) [#/Vol]Ordere d By: JEAN MARIE GARCIA on 08-25-2022 WBC (Bld) [#/Vol] 6.5 10*3/uL 3.8-11.6 [facility] pH Auto test strip (U)Ordere d By: Madiha Funk on 08-25-2022 pH (U) 5.5 [pH] 5.0-9.0 [facility] Automated erythrocytes count in urine sediment (number/area)Ordered By: Sedrick Pina on 07-14-2022 RBC Auto (Urine sed) [#/Area] None seen [HPF] 0-4 [facility] Automated leukocytes count i n urine sediment (number/area)Ordered By: Sedrick Pina on 07-14-2022 WBC Auto (Urine sed) [#/Area] 5-9 [HPF] 0-4 [facility] Basophils Auto (Bld) [#/Vol] Ordered By: Sedrick Pina on 07-14-2022 Basophils (Bld) [#/Vol] 0.1 10*3/uL 0.0-0.2 [facility] Basophils/100 WBC Auto (Bld) Ordered By: Sedrick Pina on 07-14-2022 Basophils/100 WBC (Bld) 0.8 % . [facility] Bilirubin Test strip Ql (U)O rdered By: Sedrick Pina on 07-14-2022 Bilirubin Ql (U) Negative Negative [facility] Body fluid albumin measureme nt (mass/volume)Ordered By: Sedrick Pina on 07-14-2022 Albumin (Body fld) [Mass/Vol] 4.1 g/dL 3.2-5.5 [facility] Color Auto (U)Ordered By: Sahil Pina on 07-14-2022 Color (U) Yellow Yellow [facility] Creatinine and Glomerular fi ltration rate.predicted panel (S/P/Bld)Ordered By: Sedrick Pina on 07-14-2022 Creatinine [Mass/Vol] 0.89 mg/dL 0.44-1.03 [facility] Eosinophils Auto (Bld) [#/Vo l]Ordered By: Sedrick Pina on 07-14-2022 Eosinophils (Bld) [#/Vol] 0.1 10*3/uL 0.0-0.45 [facility] Eosinophils/100 WBC Auto (Bl d)Ordered By: Sedrick Pina on 07-14-2022 Eosinophils/100 WBC (Bld) 1.7 % . [facility] Erythrocyte distribution wid th Auto (RBC) [Ratio]Ordered By: Sedrick Pina on 07-14-2022 Erythrocyte distribution width (RBC) [Ratio] 13.8 % 11.9-15.3 [facility] Estimated glomerular filtrat ion rate (GFR) non- AmericanOrdered By: Sedrick Pina on 07-14-2022 GFR/1.73 sq M.predicted among non-blacks MDRD (S/P/Bld) [Vol rate/Area] > 60 mL/Min [facility] Globulin Calc (S) [Mass/Vol] Ordered By: Sedrick Pina on 07-14-2022 Globulin (S) [Mass/Vol] 2.7 g/dL [facility] HCG ( test) IA.rapi d Ql (U)Ordered By: JEAN MARIE GARCIA on 07-14-2022 HCG ( test) Ql (U) Negative [facility] Hematocrit Auto (Bld) [Volum e fraction]Ordered By: Sedrick Pina on 07-14-2022 Hematocrit (Bld) [Volume fraction] 41.1 % 34.0-46.4 [facility] Hemoglobin [Mass/volume] in BloodOrdered By: Sedrick Pina on 07-14-2022 Hemoglobin (Bld) [Mass/Vol] 13.5 g/dL 11.8-15.4 [facility] Ketones Auto test strip (U) [Mass/Vol]Ordered By: Sedrick Pina on 07-14-2022 Ketones (U) [Mass/Vol] Trace Negative [facility] and C hemistry - challengeOrdered By: Sedrick Pina on 07-14-2022 Lipase [Catalytic activity/Vol] 32.0 U/L 22-51 [facility] - UrinalysisOrder ed By: Sedrick Pina on 07-14-2022 Hyaline casts LM Ql (Urine sed) 0-8 [LPF] 0-8 [facility] Leukocytes [#/volume] correc deni for nucleated erythrocytes in Blood by Automated counOrdered By: Sedrick Pina on 07-14-2022 WBC corrected for nucl RBC Auto (Bld) [#/Vol] 7.7 10*3/uL 3.8-11.6 [facility] Lymphocytes Auto (Bld) [#/Vo l]Ordered By: Sedrick Pina on 07-14-2022 Lymphocytes (Bld) [#/Vol] 2.3 10*3/uL 1.00-4.8 [facility] Lymphocytes/100 WBC Auto (Bl d)Ordered By: Sedrick Pina on 07-14-2022 Lymphocytes/100 WBC (Bld) 30.0 % . [facility] MCH Auto (RBC) [Entitic mass ]Ordered By: Sedrick Pina on 07-14-2022 MCH (RBC) [Entitic mass] 29.2 pg 24.7-34.3 [facility] MCHC Auto (RBC) [Mass/Vol]Or dered By: Sedrick Pina on 07-14-2022 MCHC (RBC) [Mass/Vol] 32.9 g/dL 32.0-35.0 [facility] MCV Auto (RBC) [Entitic vol] Ordered By: Sedrick Pina on 07-14-2022 MCV (RBC) [Entitic vol] 88.8 fL 80-100 [facility] Monocytes Auto (Bld) [#/Vol] Ordered By: Sedrick Pina on 07-14-2022 Monocytes (Bld) [#/Vol] 0.6 10*3/uL 0.0-0.8 [facility] Monocytes/100 WBC Auto (Bld) Ordered By: Sedrick Pina on 07-14-2022 Monocytes/100 WBC (Bld) 7.5 % . [facility] Mucus LM Ql (Urine sed)Order ed By: Sedrick Pina on 07-14-2022 Mucus Ql (Urine sed) 4+ [LPF] [facility] Neutrophils Auto (Bld) [#/Vo l]Ordered By: Sedrick Pina on 07-14-2022 Neutrophils (Bld) [#/Vol] 4.6 10*3/uL 1.8-7.7 [facility] Neutrophils/100 WBC Auto (Bl d)Ordered By: Sedrick Pina on 07-14-2022 Neutrophils/100 WBC (Bld) 60.0 % . [facility] Nitrite Test strip Ql (U)Ord ered By: Sedrick Pina on 07-14-2022 Nitrite Ql (U) Negative Negative [facility] No Panel InformationOrdered By: Sedrick Pina on 07-14-2022 Estimated GFR () > 60 mL/Min [facility] Comment on above: GFR estimated refere nce range: According to KDOQI guidelines, <60 ml/min/1.73m2 is sufficient to diagnose a patient with chronic kidney disease. Pharmacy Creatinine Clearance (Chem 8.03 [facility] Nucleated erythrocytes [Pres ence] in Blood by Automated countOrdered By: Sedrick Pina on 07-14-2022 Nucleated RBC Auto Ql (Bld) 0.2 /100{WBC} 0-0.5 [facility] Platelet mean volume Auto (B ld) [Entitic vol]Ordered By: Sedrick Pina on 07-14-2022 Platelet mean volume (Bld) [Entitic vol] 8.8 fL 6.3-10.7 [facility] Platelets Auto (Bld) [#/Vol] Ordered By: Sedrick Pina on 07-14-2022 Platelets (Bld) [#/Vol] 218 10*3/uL 150-450 [facility] Protein Auto test strip (U) [Mass/Vol]Ordered By: Sedrick Pina on 07-14-2022 Protein (U) [Mass/Vol] Negative Negative [facility] Protein [Mass/volume] in Ser um or PlasmaOrdered By: Sedrick Pina on 07-14-2022 Protein [Mass/Vol] 6.8 g/dL 6.1-7.9 [facility] RBC Auto (Bld) [#/Vol]Ordere d By: Sedrick Pina on 07-14-2022 RBC (Bld) [#/Vol] 4.63 10*6/uL 3.60-5.00 [facility] Serum or plasma alanine greene otransferase measurement without P-5'-P (enzymatic activiOrdered By: Sedrick Pina on 07-14-2022 ALT No additional P-5'-P [Catalytic activity/Vol] 22 U/L 10-60 [facility] Serum or plasma albumin/glob ulin mass ratioOrdered By: Sedrick Pina on 07-14-2022 Albumin/Globulin [Mass ratio] 1.5 {ratio} [facility] Serum or plasma alkaline donna sphatase measurement (enzymatic activity/volume)Ordered By: Sedrick Pina on 07-14-2022 ALP [Catalytic activity/Vol] 67 U/L 32-92 [facility] Serum or plasma anion gap de terminationOrdered By: Sedrick Pina on 07-14-2022 Anion gap [Moles/Vol] 12.0 mmol/L 6.0-15.0 [facility] Serum or plasma aspartate am inotransferase measurement (enzymatic activity/volume)Ordered By: Sedrick Pina on 07-14-2022 AST [Catalytic activity/Vol] 21 U/L 10-42 [facility] Serum or plasma calcium france urement (mass/volume)Ordered By: Sedrick Pina on 07-14-2022 Calcium [Mass/Vol] 9.5 mg/dL 8.2-10.2 [facility] Serum or plasma chloride joanne surement (moles/volume)Ordered By: Sedrick Pina on 07-14-2022 Chloride [Moles/Vol] 99 mmol/L 95-114 [facility] Serum or plasma glucose france urement (mass/volume)Ordered By: Sedrick Pina on 07-14-2022 Glucose [Mass/Vol] 96 mg/dL 70-100 [facility] Comment on above: ADA recommended refe rence rangeRandom Glucose Reference Range is dependent on time and content of last meal. Glucose of more than 200 mg/dL in a nonstressed, ambulatory subject supports the diagnosis of Diabetes Mellitus. Serum or plasma potassium me asurement (moles/volume)Ordered By: Sedrick Pina on 07-14-2022 Potassium [Moles/Vol] 3.5 mmol/L 3.5-5.1 [facility] Serum or plasma sodium measu rement (moles/volume)Ordered By: Sedrick Pina on 07-14-2022 Sodium [Moles/Vol] 136 mmol/L 136-146 [facility] Serum or plasma total biliru bin measurement (mass/volume)Ordered By: Sedrick Pina on 07-14-2022 Bilirubin [Mass/Vol] 0.4 mg/dL 0.3-1.2 [facility] Serum or plasma total carbon dioxide measurement (moles/volume)Ordered By: Sedrick Pina on 07-14-2022 CO2 [Moles/Vol] 28.5 mmol/L 22.0-30.0 [facility] Serum or plasma urea nitroge n measurement (mass/volume)Ordered By: Sedrick Pina on 07-14-2022 Urea nitrogen [Mass/Vol] 12 mg/dL 9-23 [facility] Specific gravity Auto test s trip (U) [Rel density]Ordered By: Sedrick Pina on 07-14-2022 Specific gravity (U) [Rel density] 1.027 1.001-1.03 0 [facility] Squamous epithelial cells de tection in urine sediment by light microscopyOrdered By: Sedrick Pina on 07-14-2022 Epithelial cells.squamous LM Ql (Urine sed) 5-9 [HPF] 0-2 [facility] Urine bacteria detection by automated methodOrdered By: Sedrick Pina on 07-14-2022 Bacteria Auto Ql (U) 1+ None Seen [facility] Urine clarity by refractomet ry automatedOrdered By: Sedrick Pina on 07-14-2022 Clarity Refractometry automated (U) Clear Clear [facility] Urine culture routineOrdered By: Sedrick Pina on 07-14-2022 Bacteria identified Cx Nom (U) 2 Days [facility] Urine glucose measurement by automated test strip (mass/volume)Ordered By: Sedrick Pina on 07-14-2022 Glucose Auto test strip (U) [Mass/Vol] Normal mg/dL Normal [facility] Urine hemoglobin detection b y automated test stripOrdered By: Sedrick Pina on 07-14-2022 Hemoglobin Auto test strip Ql (U) Trace Negative [facility] Urine leukocyte esterase det ection by automated test stripOrdered By: Sedrick Pina on 07-14-2022 Leukocyte esterase Auto test strip Ql (U) 1+ Negative [facility] Urine sediment renal epithel ial cell count by microscopy (number/high power field)Ordered By: Sedrick Pina on 07-14-2022 Epithelial cells.renal LM.HPF (Urine sed) [#/Area] None seen [HPF] 0-1 [facility] Urobilinogen Auto test strip (U) [Mass/Vol]Ordered By: Sedrick Pina on 07-14-2022 Urobilinogen (U) [Mass/Vol] Normal mg/dL Normal [facility] WBC Auto (Bld) [#/Vol]Ordere d By: Sedirck Pina on 07-14-2022 WBC (Bld) [#/Vol] 7.7 10*3/uL 3.8-11.6 [facility] pH Auto test strip (U)Ordere d By: Sedrick Pina on 07-14-2022 pH (U) 6.0 [pH] 5.0-9.0 [facility] Amphetamine Screen Ql (U)Ord ered By: Bill Keith on 04-05-2022 Amphetamines Ql (U) Negative Negative [facility] Automated epithelial cells c ount in urine sediment (number/area)Ordered By: Bill Keith on 04-05-2022 Epithelial cells Auto (Urine sed) [#/Area] None seen [HPF] 0-2 [facility] Automated erythrocytes count in urine sediment (number/area)Ordered By: Bill Keith on 04-05-2022 RBC Auto (Urine sed) [#/Area] None seen [HPF] 0-4 [facility] Automated leukocytes count i n urine sediment (number/area)Ordered By: Bill Keith on 04-05-2022 WBC Auto (Urine sed) [#/Area] None seen [HPF] 0-4 [facility] Automated urine hyaline cast s count (number/volume)Ordered By: Bill Keith on 04-05-2022 Hyaline casts Auto (U) [#/Vol] None seen [LPF] 0-1 [facility] Barbiturates [Presence] in U rineOrdered By: Bill Keith on 04-05-2022 Barbiturates Ql (U) Negative Negative [facility] Benzodiazepines [Presence] i n UrineOrdered By: Bill Keith on 04-05-2022 Benzodiazepines Ql (U) Negative Negative [facility] Bilirubin Test strip Ql (U)O rdered By: Bill Keith on 04-05-2022 Bilirubin Ql (U) Negative Negative [facility] Cannabinoids [Presence] in U rine by Screen methodOrdered By: Bill Keith on 04-05-2022 Cannabinoids Screen Ql (U) Positive Negative [facility] Comment on above: These are unconfirme d results and should not be used for legal purposes. Drug Cut-Off Concentration: AMPH 1000 ng/mL CHARISSE 200 ng/mL JANIE 200 ng/mL COCM 300 ng/mL OP 300 ng/mL PCP 25 ng/mL THC 20 ng/mL Color Auto (U)Ordered By: Praneeth Keith on 04-05-2022 Color (U) Yellow Yellow [facility] HCG ( test) IA.rapi d Ql (U)Ordered By: Bill Keith on 04-05-2022 HCG ( test) Ql (U) Negative [facility] Ketones Auto test strip (U) [Mass/Vol]Ordered By: Bill Keith on 04-05-2022 Ketones (U) [Mass/Vol] Negative Negative [facility] - Drug toxicology Ordered By: Bill Keith on 04-05-2022 Opiates Ql (U) Negative Negative [facility] Nitrite Test strip Ql (U)Ord ered By: Bill Keith on 04-05-2022 Nitrite Ql (U) Negative Negative [facility] Phencyclidine Screen Ql (U)O rdered By: Bill Keith on 04-05-2022 Phencyclidine Ql (U) Negative Negative [facility] Protein Auto test strip (U) [Mass/Vol]Ordered By: Bill Keith on 04-05-2022 Protein (U) [Mass/Vol] Negative Negative [facility] Specific gravity Auto test s trip (U) [Rel density]Ordered By: Bill Keith on 04-05-2022 Specific gravity (U) [Rel density] 1.004 1.001-1.03 0 [facility] Urine bacteria detection by automated methodOrdered By: Bill eKith on 04-05-2022 Bacteria Auto Ql (U) None seen None Seen [facility] Urine clarity by refractomet ry automatedOrdered By: Bill Keith on 04-05-2022 Clarity Refractometry automated (U) Clear Clear [facility] Urine cocaine detectionOrder ed By: Bill Keith on 04-05-2022 Cocaine Ql (U) Negative Negative [facility] Urine glucose measurement by automated test strip (mass/volume)Ordered By: Bill eKith on 04-05-2022 Glucose Auto test strip (U) [Mass/Vol] Normal mg/dL Normal [facility] Urine hemoglobin detection b y automated test stripOrdered By: Bill Keith on 04-05-2022 Hemoglobin Auto test strip Ql (U) Trace Negative [facility] Urine leukocyte esterase det ection by automated test stripOrdered By: Bill Keith on 04-05-2022 Leukocyte esterase Auto test strip Ql (U) Negative Negative [facility] Urobilinogen Auto test strip (U) [Mass/Vol]Ordered By: Bill Keith on 04-05-2022 Urobilinogen (U) [Mass/Vol] Normal mg/dL Normal [facility] pH Auto test strip (U)Ordere d By: Bill Keith on 04-05-2022 pH (U) 8.0 [pH] 5.0-9.0 [facility] Activated partial thrombopla stin time (aPTT) in platelet poor plasma by coagulation aOrdered By: Feng Barlow on 03-14-2022 aPTT Coag (PPP) [Time] 31.7 s 25.1-36.5 [facility] Albumin [Mass/volume] in Ser um or PlasmaOrdered By: Feng Barlow on 03-14-2022 Albumin [Mass/Vol] 4.5 g/dL 3.2-5.5 [facility] Basophils Auto (Bld) [#/Vol] Ordered By: Feng Barlow on 03-14-2022 Basophils (Bld) [#/Vol] 0.1 10*3/uL 0.0-0.2 [facility] Basophils/100 WBC Auto (Bld) Ordered By: Feng Barlow on 03-14-2022 Basophils/100 WBC (Bld) 1.0 % . [facility] Blood hemoglobin measurement (mass/volume)Ordered By: Feng Barlow on 03-14-2022 Hemoglobin (Bld) [Mass/Vol] 14.1 g/dL 11.8-15.4 [facility] Blood leukocytes automated c ount (number/volume)Ordered By: Feng Barlow on 03-14-2022 WBC (Bld) [#/Vol] 6.0 10*3/uL 4.5-11.0 [facility] Creatine kinase [Enzymatic a ctivity/volume] in Serum or PlasmaOrdered By: Feng Barlow on 03-14-2022 CK [Catalytic activity/Vol] 81 U/L 22-269 [facility] Creatinine and Glomerular fi ltration rate.predicted panel (S/P/Bld)Ordered By: Feng Barlow on 03-14-2022 Creatinine [Mass/Vol] 1.04 mg/dL 0.44-1.03 [facility] Eosinophils Auto (Bld) [#/Vo l]Ordered By: Feng Barlow on 03-14-2022 Eosinophils (Bld) [#/Vol] 0.0 10*3/uL 0.0-0.45 [facility] Eosinophils/100 WBC Auto (Bl d)Ordered By: Feng Barlow on 03-14-2022 Eosinophils/100 WBC (Bld) 0.8 % . [facility] Erythrocyte distribution wid th Auto (RBC) [Ratio]Ordered By: Feng Barlow on 03-14-2022 Erythrocyte distribution width (RBC) [Ratio] 13.8 % 11.9-15.3 [facility] Estimated glomerular filtrat ion rate (GFR) non- AmericanOrdered By: Feng Barlow on 03-14-2022 GFR/1.73 sq M.predicted among non-blacks MDRD (S/P/Bld) [Vol rate/Area] > 60 mL/Min [facility] Globulin Calc (S) [Mass/Vol] Ordered By: Feng Barlow on 03-14-2022 Globulin (S) [Mass/Vol] 2.6 g/dL [facility] Hematocrit Auto (Bld) [Volum e fraction]Ordered By: Feng Barlow on 03-14-2022 Hematocrit (Bld) [Volume fraction] 43.0 % 34.0-46.4 [facility] - Chemistry and C hemistry - challengeOrdered By: Feng Barlow on 03-14-2022 Magnesium [Mass/Vol] 1.9 mg/dL 1.6-2.6 [facility] Laboratory - CoagulationOrde red By: Feng Barlow on 03-14-2022 PT Coag (PPP) [Time] 13.7 s 9.0-12.9 [facility] - Hematology and Cell countsOrdered By: Feng Barlow on 03-14-2022 Nucleated RBC/100 WBC (Bld) [Ratio] 0.1 % 0-0.5 [facility] Lymphocytes Auto (Bld) [#/Vo l]Ordered By: Feng Barlow on 03-14-2022 Lymphocytes (Bld) [#/Vol] 1.9 10*3/uL 1.00-4.8 [facility] Lymphocytes/100 WBC Auto (Bl d)Ordered By: Feng Barlow on 03-14-2022 Lymphocytes/100 WBC (Bld) 31.0 % . [facility] MCH Auto (RBC) [Entitic mass ]Ordered By: Feng Barlow on 03-14-2022 MCH (RBC) [Entitic mass] 29.2 pg 24.7-34.3 [facility] MCHC Auto (RBC) [Mass/Vol]Or dered By: Feng Barlow on 03-14-2022 MCHC (RBC) [Mass/Vol] 32.7 g/dL 32.0-35.0 [facility] MCV Auto (RBC) [Entitic vol] Ordered By: Feng Barlow on 03-14-2022 MCV (RBC) [Entitic vol] 89.2 fL 80-100 [facility] Monocytes Auto (Bld) [#/Vol] Ordered By: Feng Barlow on 03-14-2022 Monocytes (Bld) [#/Vol] 0.4 10*3/uL 0.0-0.8 [facility] Monocytes/100 WBC Auto (Bld) Ordered By: Feng Barlow on 03-14-2022 Monocytes/100 WBC (Bld) 7.1 % . [facility] Neutrophils Auto (Bld) [#/Vo l]Ordered By: Feng Barlow on 03-14-2022 Neutrophils (Bld) [#/Vol] 3.6 10*3/uL 1.8-7.7 [facility] Neutrophils/100 WBC Auto (Bl d)Ordered By: Feng Barlow on 03-14-2022 Neutrophils/100 WBC (Bld) 60.1 % . [facility] No Panel InformationOrdered By: Feng Barlow on 03-14-2022 Estimated GFR () > 60 mL/Min [facility] Comment on above: GFR estimated refere nce range: According to KDOQI guidelines, <60 ml/min/1.73m2 is sufficient to diagnose a patient with chronic kidney disease. Pharmacy Creatinine Clearance (Chem 69.36 [facility] Platelet mean volume Auto (B ld) [Entitic vol]Ordered By: Feng Barlow on 03-14-2022 Platelet mean volume (Bld) [Entitic vol] 9.1 fL 6.3-10.7 [facility] Platelet poor plasma interna tional normalized ratio (INR) by coagulation assay (relatOrdered By: Feng Barlow on 03-14-2022 INR Coag (PPP) [Relative time] 1.2 {INR} [facility] Comment on above: INR Therapeutic Rang e A) Pre- and Peroperative OAT started two weeks before surgery. NOT HIP SURGERY: 1.5 - 2.5 HIP SURGERY: 2 - 3 B) Primary and secondary prevention of venous THROMBOSIS: 2 - 3 C) Active venous thrombosis, pulmonary embolism and prevention of recurrent venous thrombosis: 2 - 3 D) Prevention of arterial thromboembolism including patients with mechanical heart valves: 3 - 4.5 Platelets Auto (Bld) [#/Vol] Ordered By: eFng Barlow on 03-14-2022 Platelets (Bld) [#/Vol] 221 10*3/uL 150-450 [facility] Protein [Mass/volume] in Ser um or PlasmaOrdered By: Feng Barlow on 03-14-2022 Protein [Mass/Vol] 7.1 g/dL 6.1-7.9 [facility] RBC Auto (Bld) [#/Vol]Ordere d By: Feng Barlow on 03-14-2022 RBC (Bld) [#/Vol] 4.82 10*6/uL 3.60-5.00 [facility] Serum or plasma alanine greene otransferase measurement without P-5'-P (enzymatic activiOrdered By: Feng Barlow on 03-14-2022 ALT No additional P-5'-P [Catalytic activity/Vol] 14 U/L 10-60 [facility] Serum or plasma albumin/glob ulin mass ratioOrdered By: Feng Barlow on 03-14-2022 Albumin/Globulin [Mass ratio] 1.7 {ratio} [facility] Serum or plasma alkaline donna sphatase measurement (enzymatic activity/volume)Ordered By: Feng Barlow on 03-14-2022 ALP [Catalytic activity/Vol] 65 U/L 32-92 [facility] Serum or plasma aspartate am inotransferase measurement (enzymatic activity/volume)Ordered By: Feng Barlow on 03-14-2022 AST [Catalytic activity/Vol] 18 U/L 10-42 [facility] Serum or plasma calcium france urement (mass/volume)Ordered By: Feng Barlow on 03-14-2022 Calcium [Mass/Vol] 9.7 mg/dL 8.2-10.2 [facility] Serum or plasma chloride joanne surement (moles/volume)Ordered By: Feng Barlow on 03-14-2022 Chloride [Moles/Vol] 102 mmol/L 95-114 [facility] Serum or plasma creatine kin ase MB (CKMB)/total creatine kinase (CK) ratio by calculaOrdered By: Feng Barlow on 03-14-2022 CK.MB Calc [Catalytic fraction] 1.3 % 0.00-2.50 [facility] Serum or plasma creatine kin ase MB measurement (mass/volume)Ordered By: Feng Barlow on 03-14-2022 CK.MB [Mass/Vol] 1.1 ng/mL 0.6-6.3 [facility] Serum or plasma glucose france urement (mass/volume)Ordered By: Feng Barlow on 03-14-2022 Glucose [Mass/Vol] 118 mg/dL 70-100 [facility] Comment on above: ADA recommended refe rence range Random Glucose Reference Range is dependent on time and content of last meal. Glucose of more than 200 mg/dL in a nonstressed, ambulatory subject supports the diagnosis of Diabetes Mellitus. Serum or plasma potassium me asurement (moles/volume)Ordered By: Feng Barlow on 03-14-2022 Potassium [Moles/Vol] 3.5 mmol/L 3.5-5.1 [facility] Serum or plasma sodium measu rement (moles/volume)Ordered By: Feng Barlow on 03-14-2022 Sodium [Moles/Vol] 137 mmol/L 136-146 [facility] Serum or plasma total biliru bin measurement (mass/volume)Ordered By: Feng Barlow on 03-14-2022 Bilirubin [Mass/Vol] 0.8 mg/dL 0.3-1.2 [facility] Serum or plasma total carbon dioxide measurement (moles/volume)Ordered By: Feng Barlow on 03-14-2022 CO2 [Moles/Vol] 24.8 mmol/L 22.0-30.0 [facility] Serum or plasma urea nitroge n measurement (mass/volume)Ordered By: Feng Barlow on 03-14-2022 Urea nitrogen [Mass/Vol] 14 mg/dL 9- [facility] Troponin I.cardiac [Mass/vol ume] in Serum or Plasma by High sensitivity methodOrdered By: Feng Barlow on 03-14-2022 Troponin I.cardiac High sensitivity method [Mass/Vol] < 3 pg/mL 0-15 [facility] Albumin [Mass/volume] in Ser um or PlasmaOrdered By: Brando Guy on 02-10-2022 Albumin [Mass/Vol] 3.9 g/dL 3.2-5.5 [facility] Basophils Auto (Bld) [#/Vol] Ordered By: Brando Guy on 02-10-2022 Basophils (Bld) [#/Vol] 0.0 10*3/uL 0.0-0.2 [facility] Basophils/100 WBC Auto (Bld) Ordered By: Brando Guy on 02-10-2022 Basophils/100 WBC (Bld) 0.7 % . [facility] Bilirubin Test strip Ql (U)O rdered By: Brando Guy on 02-10-2022 Bilirubin Ql (U) Negative Negative [facility] Blood hemoglobin measurement (mass/volume)Ordered By: Brando Guy on 02-10-2022 Hemoglobin (Bld) [Mass/Vol] 13.9 g/dL 11.8-15.4 [facility] Blood leukocytes automated c ount (number/volume)Ordered By: Brando Guy on 02-10-2022 WBC (Bld) [#/Vol] 6.4 10*3/uL 4.5-11.0 [facility] Color Auto (U)Ordered By: Fidencio Guy on 02-10-2022 Color (U) Yellow Yellow [facility] Creatinine and Glomerular fi ltration rate.predicted panel (S/P/Bld)Ordered By: Brando Guy on 02-10-2022 Creatinine [Mass/Vol] 0.90 mg/dL 0.44-1.03 [facility] Eosinophils Auto (Bld) [#/Vo l]Ordered By: Brando Guy on 02-10-2022 Eosinophils (Bld) [#/Vol] 0.2 10*3/uL 0.0-0.45 [facility] Eosinophils/100 WBC Auto (Bl d)Ordered By: Brando Guy on 02-10-2022 Eosinophils/100 WBC (Bld) 2.5 % . [facility] Erythrocyte distribution wid th Auto (RBC) [Ratio]Ordered By: Brando Guy on 02-10-2022 Erythrocyte distribution width (RBC) [Ratio] 13.5 % 11.9-15.3 [facility] Estimated glomerular filtrat ion rate (GFR) non- AmericanOrdered By: Brando Guy on 02-10-2022 GFR/1.73 sq M.predicted among non-blacks MDRD (S/P/Bld) [Vol rate/Area] > 60 mL/Min [facility] Globulin Calc (S) [Mass/Vol] Ordered By: Brando Guy on 02-10-2022 Globulin (S) [Mass/Vol] 2.8 g/dL [facility] HCG ( test) IA.rapi d Ql (U)Ordered By: Brando Guy on 02-10-2022 HCG ( test) Ql (U) Negative [facility] Hematocrit Auto (Bld) [Volum e fraction]Ordered By: Brando Guy on 02-10-2022 Hematocrit (Bld) [Volume fraction] 42.1 % 34.0-46.4 [facility] Ketones Auto test strip (U) [Mass/Vol]Ordered By: Brando Guy on 02-10-2022 Ketones (U) [Mass/Vol] Negative Negative [facility] - Hematology and Cell countsOrdered By: Brando Guy on 02-10-2022 Nucleated RBC/100 WBC (Bld) [Ratio] 0.0 % 0-0.5 [facility] Lymphocytes Auto (Bld) [#/Vo l]Ordered By: Brando Guy on 02-10-2022 Lymphocytes (Bld) [#/Vol] 1.9 10*3/uL 1.00-4.8 [facility] Lymphocytes/100 WBC Auto (Bl d)Ordered By: Brando Guy on 02-10-2022 Lymphocytes/100 WBC (Bld) 29.2 % . [facility] MCH Auto (RBC) [Entitic mass ]Ordered By: Brando Guy on 02-10-2022 MCH (RBC) [Entitic mass] 28.8 pg 24.7-34.3 [facility] MCHC Auto (RBC) [Mass/Vol]Or dered By: Brando Guy on 02-10-2022 MCHC (RBC) [Mass/Vol] 33.1 g/dL 32.0-35.0 [facility] MCV Auto (RBC) [Entitic vol] Ordered By: Brando Guy on 02-10-2022 MCV (RBC) [Entitic vol] 87.1 fL 80-100 [facility] Monocytes Auto (Bld) [#/Vol] Ordered By: Brando Guy on 02-10-2022 Monocytes (Bld) [#/Vol] 0.5 10*3/uL 0.0-0.8 [facility] Monocytes/100 WBC Auto (Bld) Ordered By: Brando Guy on 02-10-2022 Monocytes/100 WBC (Bld) 8.6 % . [facility] Neutrophils Auto (Bld) [#/Vo l]Ordered By: Brando Guy on 02-10-2022 Neutrophils (Bld) [#/Vol] 3.8 10*3/uL 1.8-7.7 [facility] Neutrophils/100 WBC Auto (Bl d)Ordered By: Brando Guy on 02-10-2022 Neutrophils/100 WBC (Bld) 59.0 % . [facility] Nitrite Test strip Ql (U)Ord ered By: Brando Guy on 02-10-2022 Nitrite Ql (U) Negative Negative [facility] No Panel InformationOrdered By: Brando Guy on 02-10-2022 Lamotrigine (Lamictal) Level <1.0 ug/mL 2.0-20.0 [facility] Comment on above: Detection Limit = 1. 0 Performed at: [facility] [id number] [employer]ws Consultant: Brent Alves MD, Phone: [phone] Estimated GFR () > 60 mL/Min [facility] Comment on above: GFR estimated refere nce range: According to KDOQI guidelines, <60 ml/min/1.73m2 is sufficient to diagnose a patient with chronic kidney disease. Pharmacy Creatinine Clearance (Chem 79.33 [facility] Platelet mean volume Auto (B ld) [Entitic vol]Ordered By: Brando Guy on 02-10-2022 Platelet mean volume (Bld) [Entitic vol] 9.1 fL 6.3-10.7 [facility] Platelets Auto (Bld) [#/Vol] Ordered By: Brando Guy on 02-10-2022 Platelets (Bld) [#/Vol] 200 10*3/uL 150-450 [facility] Prolactin [Mass/volume] in S n[place] or PlasmaOrdered By: Brando Guy on 02-10-2022 Prolactin [Mass/Vol] 28.09 ng/mL 3.34-26.72 [facility] Protein Auto test strip (U) [Mass/Vol]Ordered By: Brando Guy on 02-10-2022 Protein (U) [Mass/Vol] Negative Negative [facility] Protein [Mass/volume] in Ser um or PlasmaOrdered By: Brando Guy on 02-10-2022 Protein [Mass/Vol] 6.7 g/dL 6.1-7.9 [facility] RBC Auto (Bld) [#/Vol]Ordere d By: Brando Guy on 02-10-2022 RBC (Bld) [#/Vol] 4.84 10*6/uL 3.60-5.00 [facility] Serum or plasma alanine greene otransferase measurement without P-5'-P (enzymatic activiOrdered By: Brando Guy on 02-10-2022 ALT No additional P-5'-P [Catalytic activity/Vol] 19 U/L 10-60 [facility] Serum or plasma albumin/glob ulin mass ratioOrdered By: Brando Guy on 02-10-2022 Albumin/Globulin [Mass ratio] 1.4 {ratio} [facility] Serum or plasma alkaline donna sphatase measurement (enzymatic activity/volume)Ordered By: Brando Guy on 02-10-2022 ALP [Catalytic activity/Vol] 67 U/L 32-92 [facility] Serum or plasma aspartate am inotransferase measurement (enzymatic activity/volume)Ordered By: Brando Guy on 02-10-2022 AST [Catalytic activity/Vol] 22 U/L 10-42 [facility] Serum or plasma calcium france urement (mass/volume)Ordered By: Brando Guy on 02-10-2022 Calcium [Mass/Vol] 9.5 mg/dL 8.2-10.2 [facility] Serum or plasma chloride joanne surement (moles/volume)Ordered By: Brando Guy on 02-10-2022 Chloride [Moles/Vol] 102 mmol/L 95-114 [facility] Serum or plasma glucose france urement (mass/volume)Ordered By: Brando Guy on 02-10-2022 Glucose [Mass/Vol] 99 mg/dL 70-100 [facility] Comment on above: ADA recommended refe rence range Random Glucose Reference Range is dependent on time and content of last meal. Glucose of more than 200 mg/dL in a nonstressed, ambulatory subject supports the diagnosis of Diabetes Mellitus. Serum or plasma potassium me asurement (moles/volume)Ordered By: Brando Guy on 02-10-2022 Potassium [Moles/Vol] 3.8 mmol/L 3.5-5.1 [facility] Serum or plasma sodium measu rement (moles/volume)Ordered By: Brando Guy on 02-10-2022 Sodium [Moles/Vol] 137 mmol/L 136-146 [facility] Serum or plasma total biliru bin measurement (mass/volume)Ordered By: Brando Guy on 02-10-2022 Bilirubin [Mass/Vol] 0.5 mg/dL 0.3-1.2 [facility] Serum or plasma total carbon dioxide measurement (moles/volume)Ordered By: Brando Guy on 02-10-2022 CO2 [Moles/Vol] 26.4 mmol/L 22.0-30.0 [facility] Serum or plasma urea nitroge n measurement (mass/volume)Ordered By: Brando Guy on 02-10-2022 Urea nitrogen [Mass/Vol] 20 mg/dL 9-23 [facility] Specific gravity Auto test s trip (U) [Rel density]Ordered By: Brando Guy on 02-10-2022 Specific gravity (U) [Rel density] 1.013 1.001-1.03 0 [facility] Urine clarity by refractomet ry automatedOrdered By: Brando Guy on 02-10-2022 Clarity Refractometry automated (U) Clear Clear [facility] Urine glucose measurement by automated test strip (mass/volume)Ordered By: Brando Guy on 02-10-2022 Glucose Auto test strip (U) [Mass/Vol] Normal mg/dL Normal [facility] Urine hemoglobin detection b y automated test stripOrdered By: Brando Guy on 02-10-2022 Hemoglobin Auto test strip Ql (U) Negative Negative [facility] Urine leukocyte esterase det ection by automated test stripOrdered By: Brando Guy on 02-10-2022 Leukocyte esterase Auto test strip Ql (U) Negative Negative [facility] Urobilinogen Auto test strip (U) [Mass/Vol]Ordered By: Brando Guy on 02-10-2022 Urobilinogen (U) [Mass/Vol] Normal mg/dL Normal [facility] pH Auto test strip (U)Ordere d By: Brando Guy on 02-10-2022 pH (U) 6.5 [pH] 5.0-9.0 [facility] Urine culture routineOrdered By: Kristine Welsh on 01-31-2022 Bacteria identified Cx Nom (U) 2 Days [facility] Amorphous urine sedimentOrde red By: Kristine Welsh on 01-29-2022 Amorphous sediment LM Ql (Urine sed) See comment Negative [facility] Comment on above: Unable to obtain acc urate result due to color interference. Automated epithelial cells c ount in urine sediment (number/area)Ordered By: Kristine Welsh on 01-29-2022 Epithelial cells Auto (Urine sed) [#/Area] 10-19 [HPF] 0-2 [facility] Automated erythrocytes count in urine sediment (number/area)Ordered By: Kristine Welsh on 01-29-2022 RBC Auto (Urine sed) [#/Area] Innumerable [HPF] 0-4 [facility] Automated leukocytes count i n urine sediment (number/area)Ordered By: Kristine Welsh on 01-29-2022 WBC Auto (Urine sed) [#/Area] 3-4 [HPF] 0-4 [facility] Automated urine specific gra vity by refractometryOrdered By: Kristine Welsh on 01-29-2022 Specific gravity Refractometry automated (U) [Rel density] 1.036 1.001-1.03 0 [facility] Comment on above: Rechecked by refract ometer Bilirubin Auto test strip Ql (U)Ordered By: Kristine Welsh on 01-29-2022 Bilirubin Ql (U) See comment Negative [facility] Comment on above: Unable to obtain acc urate result due to color interference. HCG ( test) IA.rapi d Ql (U)Ordered By: Kristine Welsh on 01-29-2022 HCG ( test) Ql (U) Negative [facility] Ketones Test strip (U) [Mass /Vol]Ordered By: Kristine Welsh on 01-29-2022 Ketones (U) [Mass/Vol] See comment Negative [facility] Comment on above: Unable to obtain acc urate result due to color interference. Laboratory - Microbiology an d Antimicrobial susceptibilityOrdered By: Kristine Welsh on 01-29-2022 C. trachomatis DNA CHARLINE+probe Ql (Unsp spec) Negative Negative [facility] N. gonorrhoeae DNA CHARLINE+probe Ql (Unsp spec) Negative Negative [facility] Comment on above: Performed at: =[address] [id number] [employer]ws Consultant: Sara Estes MD, Phone: [phone] Mucus LM Ql (Urine sed)Order ed By: Kristine Welsh on 01-29-2022 Mucus Ql (Urine sed) 1+ [LPF] [facility] Protein Auto test strip (U) [Mass/Vol]Ordered By: Kristine Welsh on 01-29-2022 Protein (U) [Mass/Vol] See comment Negative [facility] Comment on above: Unable to obtain acc urate result due to color interference. Urine appearanceOrdered By: Kristine Welsh on 01-29-2022 Appearance (U) Turbid Clear [facility] Urine bacteria detection by automated methodOrdered By: Kristine Welsh on 01-29-2022 Bacteria Auto Ql (U) Rare None Seen [facility] Urine colorOrdered By: Gregg Welsh on 01-29-2022 Color (U) Red Yellow [facility] Urine glucose measurement by automated test strip (mass/volume)Ordered By: Kristine Welsh on 01-29-2022 Glucose Auto test strip (U) [Mass/Vol] See comment Normal [facility] Comment on above: Unable to obtain acc urate result due to color interference. Urine leukocyte esterase det ection by automated test stripOrdered By: Kristine Welsh on 01-29-2022 Leukocyte esterase Auto test strip Ql (U) See comment Negative [facility] Comment on above: Unable to obtain acc urate result due to color interference. Urine nitrite detection by a utomated test stripOrdered By: Kristine Welsh on 01-29-2022 Nitrite Auto test strip Ql (U) See comment Negative [facility] Comment on above: Unable to obtain acc urate result due to color interference. Urobilinogen Test strip (U) [Mass/Vol]Ordered By: Kristine Welsh on 01-29-2022 Urobilinogen (U) [Mass/Vol] See comment Normal [facility] Comment on above: Unable to obtain acc urate result due to color interference. pH Auto test strip (U)Ordere d By: Kristine Blaise on 01-29-2022 pH (U) See comment 5.0-9.0 [facility] Comment on above: Unable to obtain acc urate result due to color interference. [facility] 01-05-2022 [facility] HNO ID: [id number] Author: JENNA Jurado Service: Radiology Author Type: Incident Manager Type: [facility] Filed: 01/05/2022 3:15 PM Note Text: Radiology Service Progress Note PATIENT NAME: Virgie Shanks DATE OF SERVICE: January 05, 2022 TIME: 3:00 PM PATIENT IDENTITY VERIFICATION COMPLETED USING TWO (2) IDENTIFIERS: Name and Date of confirmed by patient verbally and Name and Date of confirmed by identification band. FALL SCREENING: Has the patient had 2 falls in the last year or 1 fall with injury or currently using an Ambulatory Assistive Device (Walker, Cane, Wheelchair, Crutches, etc.)? No PATIENT GENDER DATA: Female. status: : No status: NO. PATIENT RELEVANT IMPLANT DATA REVIEWED: Yes RADIOLOGY DEPARTMENT: MR; Exam(s) Completed: Head: Seizure PERIPHERAL IV DATA: Not applicable SIGNED BY: JENNA Osei, Scarlet Del Castillo, (R) January 05, 2022 3:00 PM [facility] MRI BRAIN WO IVCONon 022 MRI BRAIN WO IVCON * * *Final Report* * * DATE OF EXAM: Jan 05 2022 3:16PM [facility] 0294 - MRI BRAIN WO IVCON / PROCEDURE REASON: Partial symptomatic epilepsy with complex partial seizures, not intractable, wit * * * * Physician Interpretation * * * * COMPARISONS: None. HISTORY: Partial symptomatic complex epilepsy. TECHNIQUE: MRI brain without contrast. MQ: [id number]. RESULT: MRI BRAIN: Acute abnormality: None. Minimal T2 hyperintensity along the superior medial aspect of the right temporal horn is identified best seen on series 5 image 30 corresponding to series 4 image 27 and high-resolution series 6 image 142 which may reflect changes of a small focus of gliosis or cortical dysplasia and should be further worked up with patient's EEG-PET scan to correlated as potential etiology for epilepsy. No structural or anatomical or migrational anomaly is identified. Garces-white distinction and cortical thickness is normal. High-resolution coronal sequences do not reveal any evidence for mesial temporal lobe sclerosis. Normal sulci, gyri, ventricles, CSF spaces and brain. No evidence for acute infarct/hemorrhage, mass effect or collections. Normal bones and skull base soft tissues. IMPRESSION: 1. Questionable right temporal horn area of gliosis/dysplasia. 2. No additional structural/anatomical anomaly. 3. Normal remaining brain without acute intracranial disease. [employer] Machine Operator: [facility] Transcribe Date/Time: Jan 05 2022 3:24P Dictated by : SHAUN RODRIGUEZ MD This examination was interpreted and the report reviewed and electronically signed by: SHAUN RODRIGUEZ MD on Jan 05 2022 3:29PM EST [id number] Normal [facility] CT Abdomen/Pelvis w/o Contra ston 07-21-2021 CT Abdomen/Pelvis w/o Contrast History: Lower abdomen and groin pain. Technique: Multiple contiguous axial images were obtained of the abdomen and pelvis from the level of the lung bases through the ischial tuberosities without contrast. Multiplanar reformats were obtained. All CT scans at this facility use dose modulation, iterative reconstruction, and/or weight based dosing when appropriate to reduce radiation dose to as low as reasonably achievable. Comparison: None available Findings: Lung bases are clear. Lack of intravenous contrast precludes optimal evaluation of the abdominal and pelvic viscera. The liver, gallbladder, spleen, stomach, pancreas, and adrenal glands appear within normal limits. The unenhanced kidneys appear within normal limits. No urinary tract calculi or hydronephrosis. Urinary bladder is well distended. Uterus is present. Abdominal aorta is nonaneurysmal. No retroperitoneal or abdominal/pelvic lymphadenopathy. No small bowel obstruction. No overt colonic mass or pericolonic inflammation. Appendix is within normal limits. No free fluid or free air. Osseous structures of the abdomen/pelvis are within normal limits. IMPRESSION: No acute abdominopelvic process. Report reported and signed by SHAUN ZULUAGA on 07/21/2021 1657 Normal [facility] Specialist Vital Signs Date Time Vital Sign Value Performing Clinician Facility 09-20-2023 15:42-0500 Body height 152.4 cm Christie Lause [employer] OPERATIONS SPECIALIST Work Phone: [facility] 09-20-2023 15:42-0500 Body mass index (BMI) [Ratio] 27.46 kg/m2 Christie Lause [employer] OPERATIONS SPECIALIST Work Phone: [facility] 09-20-2023 15:42-0500 Body temperature 97.7 [degF] Christie Lause MILITARY SOURCE OPERATIONS SPECIALIST Work Phone: [facility] 09-20-2023 15:42-0500 Body weight 63.78 kg Christie Lause MIL[employer]ARY SOURCE OPERATIONS SPECIALIST Work Phone: [facility] 09-20-2023 15:42-0500 Diastolic blood pressure 60 mm[Hg] Christie Lause N P Work Phone: [facility] 09-20-2023 15:42-0500 Heart rate 70 /min Christie Lause [employer] OPERATIONS SPECIALIST Work Phone: [facility] 09-20-2023 15:42-0500 Respiratory rate 16 /min Christie Lause MIL[employer]OURCE OPERATIONS SPECIALIST Work Phone: [facility] 09-20-2023 15:42-0500 SaO2% (BldA) [Mass fraction] 98 % Christie Lause MIL[employer]ARY [employer]OURCE OPERATIONS SPECIALIST Work Phone: [facility] 09-20-2023 15:42-0500 Systolic blood pressure 122 mm[Hg] Christie Lause MILITARY SOURCE OPERATIONS SPECIALIST Work Phone: [facility] 07-11-2023 20:07-0500 Body height 152.4 cm MD Remi Andrew Work Phone: [facility] 07-11-2023 20:07-0500 Body temperature 98 [degF] MD Remi Andrew Work Phone: [facility] 07-11-2023 20:07-0500 Body weight 66.6 kg MD Remi Andrew Work Phone: [facility] 07-11-2023 20:07-0500 Diastolic blood pressure 69 mm[Hg] MD Remi Andrew Work Phone: [facility] 07-11-2023 20:07-0500 Heart rate 58 /min MD Remi Andrew Work Phone: [facility] 07-11-2023 20:07-0500 Respiratory rate 18 /min MD Remi Andrew Work Phone: [facility] 07-11-2023 20:07-0500 SaO2% (BldA) [Mass fraction] 98 % MD Remi Andrew Work Phone: [facility] 07-11-2023 20:07-0500 Systolic blood pressure 138 mm[Hg] MD Remi Andrew Work Phone: [facility] 01-26-2023 14:46-0400 SaO2% (BldA) [Mass fraction] 100 % CLAUDIO MICHAELS [facility] Comment on above: Order Comment: Specimen Type: ARTERIAL B LOOD SPECIMENOrdering Facility: [facility] Address: [address] [place] [address] Performed By: #### A [employer] ####[facility] LABCLIA [id number] [place] [address] [place] 11-22-2022 12:37-0400 Body height 152.4 cm Pacc 6 Work Phone: [facility] 11-22-2022 12:37-0400 Body temperature 98.2 [degF] Pacc 6 Work Phone: [facility] 11-22-2022 12:37-0400 Body weight 58.51 kg Pacc 6 Work Phone: [facility] 11-22-2022 12:37-0400 Diastolic blood pressure 52 mm[Hg] Pac 6 Work Phone: [facility] 11-22-2022 12:37-0400 Heart rate 57 /min Pac 6 Work Phone: [facility] 11-22-2022 12:37-0400 SaO2% (BldA) [Mass fraction] 99 % Pac 6 Work Phone: [facility] 11-22-2022 12:37-0400 Systolic blood pressure 101 mm[Hg] Pac 6 Work Phone: [facility] 11-22-2022 07:56-0400 Diastolic blood pressure 60 mm[Hg] Christiano Vaca MD Work Phone: [facility] 11-22-2022 07:56-0400 Systolic blood pressure 116 mm[Hg] Christiano Vaca MD Work Phone: [facility] 11-22-2022 07:54-0400 Body weight 56.7 kg Christiano Vaca MD Work Phone: [facility] 11-22-2022 07:54-0400 Heart rate 59 /min Christiano Vaca MD Work Phone: [facility] 11-22-2022 07:54-0400 SaO2% (BldA) [Mass fraction] 96 % Christiano Vaca MD Work Phone: [facility] 10-12-2022 13:51-0500 Body height 152.4 cm Robert Marin MD Work Phone: [facility] 10-12-2022 13:51-0500 Body weight 56.7 kg Robert Marin MD Work Phone: [facility] 10-12-2022 13:51-0500 Diastolic blood pressure 56 mm[Hg] Robert Marin MD Work Phone: [facility] 10-12-2022 13:51-0500 Heart rate 57 /min Robert Marin MD Work Phone: [facility] 10-12-2022 13:51-0500 Respiratory rate 17 /min Robert Marin MD Work Phone: [facility] 10-12-2022 13:51-0500 SaO2% (BldA) [Mass fraction] 98 % Robert Marin MD Work Phone: [facility] 10-12-2022 13:51-0500 Systolic blood pressure 110 mm[Hg] Robert Marin MD Work Phone: [facility] 10-03-2022 02:51-0500 Diastolic blood pressure 57 mm[Hg] MD Remi Andrew Work Phone: [facility] 10-03-2022 02:51-0500 Heart rate 99 /min MD Remi Andrew Work Phone: [facility] 10-03-2022 02:51-0500 Respiratory rate 18 /min MD Remi Andrew Work Phone: [facility] 10-03-2022 02:51-0500 SaO2% (BldA) [Mass fraction] 100 % MD Remi Andrew Work Phone: [facility] 10-03-2022 02:51-0500 Systolic blood pressure 112 mm[Hg] MD Remi Andrew Work Phone: [facility] 10-02-2022 20:13-0500 Body height 154.94 cm MD Remi Andrew Work Phone: [facility] 10-02-2022 20:13-0500 Body weight 57.3 kg MD Remi Andrew Work Phone: [facility] 10-02-2022 19:54-0500 Body temperature 97 [degF] MD Remi Andrew Work Phone: [facility] 08-26-2022 09:30-0500 Diastolic blood pressure 54 mm[Hg] MD Remi Andrew Work Phone: [facility] 08-26-2022 09:30-0500 Heart rate 86 /min MD Remi Andrew Work Phone: [facility] 08-26-2022 09:30-0500 Respiratory rate 16 /min MD Remi Andrew Work Phone: [facility] 08-26-2022 09:30-0500 SaO2% (BldA) [Mass fraction] 98 % MD Remi Andrew Work Phone: [facility] 08-26-2022 09:30-0500 Systolic blood pressure 113 mm[Hg] MD Remi Andrew Work Phone: [facility] 08-25-2022 13:14-0500 Body height 152.4 cm MD Remi Andrew Work Phone: [facility] 08-25-2022 13:14-0500 Body temperature 98.8 [degF] MD Remi Andrew Work Phone: [facility] 08-25-2022 13:14-0500 Body weight 58 kg MD Remi Andrew Work Phone: [facility] 07-15-2022 01:30-0500 Diastolic blood pressure 67 mm[Hg] MD Remi Andrew Work Phone: [facility] 07-15-2022 01:30-0500 Heart rate 78 /min MD Remi Andrew Work Phone: [facility] 07-15-2022 01:30-0500 Respiratory rate 16 /min MD Remi Andrew Work Phone: [facility] 07-15-2022 01:30-0500 SaO2% (BldA) [Mass fraction] 98 % MD Remi Andrew Work Phone: [facility] 07-15-2022 01:30-0500 Systolic blood pressure 115 mm[Hg] MD Remi Andrew Work Phone: [facility] 07-14-2022 23:54-0500 Body temperature 98.5 [degF] MD Remi Andrew Work Phone: [facility] 07-14-2022 19:55-0500 Body height 152.4 cm MD Remi Andrew Work Phone: [facility] 07-14-2022 19:55-0500 Body weight 5 kg MD Remi Andrew Work Phone: [facility] 04-05-2022 02:22-0400 Diastolic blood pressure 61 mm[Hg] MD Remi Andrew Work Phone: [facility] 04-05-2022 02:22-0400 Heart rate 54 /min MD Remi Andrew Work Phone: [facility] 04-05-2022 02:22-0400 Respiratory rate 18 /min MD Remi Andrew Work Phone: [facility] 04-05-2022 02:22-0400 SaO2% (BldA) [Mass fraction] 98 % MD Remi Andrew Work Phone: [facility] 04-05-2022 02:22-0400 Systolic blood pressure 107 mm[Hg] MD Remi Andrew Work Phone: [facility] 04-04-2022 23:47-0400 Body temperature 98.4 [degF] MD Remi Andrew Work Phone: [facility] 04-04-2022 23:46-0400 Body height 152.4 cm MD Remi Andrew Work Phone: [facility] 04-04-2022 23:46-0400 Body weight 59.96 kg MD Remi Andrew Work Phone: [facility] 03-14-2022 17:15-0400 Diastolic blood pressure 83 mm[Hg] MD Remi Andrew Work Phone: [facility] 03-14-2022 17:15-0400 Heart rate 74 /min MD Remi Andrew Work Phone: [facility] 03-14-2022 17:15-0400 Respiratory rate 16 /min MD Remi Andrew Work Phone: [facility] 03-14-2022 17:15-0400 SaO2% (BldA) [Mass fraction] 100 % MD Remi Andrew Work Phone: [facility] 03-14-2022 17:15-0400 Systolic blood pressure 120 mm[Hg] MD Remi Andrew Work Phone: [facility] 03-14-2022 14:57-0400 Body temperature 98.1 [degF] MD Remi Andrew Work Phone: [facility] 03-14-2022 14:54-0400 Body height 152.4 cm MD Remi Andrew Work Phone: [facility] 03-14-2022 14:54-0400 Body weight 58 kg MD Remi Andrew Work Phone: [facility] 02-10-2022 08:44-0400 Body temperature 96.8 [degF] MD Remi Andrew Work Phone: [facility] 02-10-2022 08:25-0400 Diastolic blood pressure 56 mm[Hg] MD Remi Andrew Work Phone: [facility] 02-10-2022 08:25-0400 Heart rate 55 /min MD Remi Andrew Work Phone: [facility] 02-10-2022 08:25-0400 Respiratory rate 16 /min MD Remi Andrew Work Phone: [facility] 02-10-2022 08:25-0400 SaO2% (BldA) [Mass fraction] 97 % MD Remi Andrew Work Phone: [facility] 02-10-2022 08:25-0400 Systolic blood pressure 113 mm[Hg] MD Remi Andrew Work Phone: [facility] 02-10-2022 06:03-0400 Body height 152.4 cm MD Remi Andrew Work Phone: [facility] 02-10-2022 06:03-0400 Body mass index (BMI) [Percentile] Per age and sex 76 % MD Remi Andrew Work Phone: [facility] 02-10-2022 06:03-0400 Body mass index (BMI) [Ratio] 24.4 kg/m2 MD Remi Andrew Work Phone: [facility] 02-10-2022 06:03-0400 Body weight 56.69 kg MD Remi Andrew Work Phone: [facility] 01-29-2022 16:57-0400 Body height 154.94 cm MD Remi Andrew Work Phone: [facility] 01-29-2022 16:57-0400 Body mass index (BMI) [Percentile] Per age and sex 79.6 % MD Remi Andrew Work Phone: [facility] 01-29-2022 16:57-0400 Body mass index (BMI) [Ratio] 25 kg/m2 MD Remi Andrew Work Phone: [facility] 01-29-2022 16:57-0400 Body temperature 98.5 [degF] MD Remi Andrew Work Phone: [facility] 01-29-2022 16:57-0400 Body weight 60 kg MD Remi Andrew Work Phone: [facility] 01-29-2022 16:57-0400 Diastolic blood pressure 63 mm[Hg] MD Remi Andrew Work Phone: [facility] 01-29-2022 16:57-0400 Heart rate 82 /min MD Remi Andrew Work Phone: [facility] 01-29-2022 16:57-0400 Respiratory rate 16 /min MD Remi Andrew Work Phone: [facility] 01-29-2022 16:57-0400 SaO2% (BldA) [Mass fraction] 97 % MD Remi Andrew Work Phone: [facility] 01-29-2022 16:57-0400 Systolic blood pressure 120 mm[Hg] MD Remi Andrew Work Phone: [facility] 12-22-2021 10:17-0400 Body height 152.4 cm Robert Marin MD Work Phone: [facility] 12-22-2021 10:17-0400 Body mass index (BMI) [Percentile] Per age and sex 83.81 % Robert Marin MD Work Phone: [facility] 12-22-2021 10:17-0400 Body weight 60.06 kg Robert Marin MD Work Phone: [facility] 12-22-2021 10:17-0400 Diastolic blood pressure 51 mm[Hg] Robert Marin MD Work Phone: [facility] 12-22-2021 10:17-0400 Heart rate 51 /min Robert Marin MD Work Phone: [facility] 12-22-2021 10:17-0400 Respiratory rate 19 /min Robert Marin MD Work Phone: [facility] 12-22-2021 10:17-0400 SaO2% (BldA) [Mass fraction] 99 % Robert Marin MD Work Phone: [facility] 12-22-2021 10:17-0400 Systolic blood pressure 106 mm[Hg] Robert Marin MD Work Phone: [facility] Encounters Encounter Date Encounter Type Care Provider Facility Start: 10-29-2023 Refill Sarahy Danese A PRN.LEVEL VIAL SETTER Work Phone: Neurology Comment on above: Refill Request Start: 10-29-2023 Refill Sarahy Danese A PRN.LEVEL VIAL SETTER Work Phone: Neurology Comment on above: Refill Request Start: 10-25-2023 End: 10-26-2023 ambulatory CHRISTIE ALDANA Not Available Start: 10-25-2023 End: 10-25-2023 Lab Drop off Robyn Bundy [facility] Start: 09-20-2023 End: 09-20-2023 ambulatory CHRISTIE ALDANA Not Available Start: 09-20-2023 End: 09-20-2023 Office outpatient visit 15 minutes Christie Aldana MILITARY SOURCE OPERATIONS SPECIALIST Work Phone: [facility] Comment on above: Other epilepsy witho ut status epilepticus, not intractable (CMS/HCC) (Primary Dx); Anxiety and depression (CMS/HCC); S/P brain surgery; Seizure (CMS/HCC) Start: 09-20-2023 Chart abstracting Christie Malone use MILITARY SOURCE OPERATIONS SPECIALIST Work Phone: [facility] Start: 09-14-2023 Clinisync Result Encounter Generic External Data Provider [facility] External Department Unsolicited Start: 09-14-2023 Clinisync Result Encounter Generic External Data Provider [facility] External Department Unsolicited Start: 09-14-2023 Telephone encounter Robert camp MD Work Phone: Neurology Comment on above: Patient Update Start: 09-02-2023 End: 09-02-2023 ambulatory ALANNAH SOUTH Not Available Start: 07-25-2023 ambulatory Robert Marin MD Work Phone: Neurology Comment on above: New medicine Start: 07-24-2023 End: 07-24-2023 ambulatory ROBERT MARIN Facility:[facility] Start: 07-24-2023 End: 07-24-2023 ambulatory Robert Marin MD Work Phone: Neurology Comment on above: Partial symptomatic epilepsy with complex partial seizures, not intractable, 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); Recurrent major depression in partial remission (HCC) Start: 07-24-2023 End: 07-24-2023 Telemedicine consultation with patient Robert Marin MD Work Phone: [facility] Start: 07-21-2023 End: 07-22-2023 ambulatory CLAUDIO MICHAELS Facility:[facility] Start: 07-21-2023 End: 07-22-[address] [facility] Facility:[facility] Start: 07-21-2023 End: 07-21-[address] [facility] Facility:[facility] Start: 07-21-2023 End: 07-21-2023 Patient encounter procedure Claudio Michaels BLACKSMITH SUPERVISOR.LEVEL VIAL SETTER Work Phone: Neurosurgery Comment on above: Partial symptomatic epilepsy with complex partial seizures, not intractable, 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); S/P brain surgery Start: 07-21-2023 End: 07-21-2023 Subsequent hospital visit by physician Mri 4 Radio Main Q (I-Stat/1.5t/3t) Work Phone: MRI Q Comment on above: Partial symptomatic epilepsy with complex partial seizures, not intractable, without status epilepticus (HCC) [G40.209] Start: 07-11-2023 End: 07-11-2023 Emergency department patient visit Feng Barlow Facility:[facility] Start: 07-11-2023 End: 07-11-2023 Emergency department patient visit MD Remi Andrew Work Phone: [facility] Work Phone: Start: 06-30-2023 End: 06-30-2023 ambulatory CHRISTIE ALDANA Not Available Start: 05-25-2023 Telephone encounter Robert camp MD Work Phone: Neurology Comment on above: Forms (Panfilo mae ) Start: 04-20-2023 Refill Robert Marin MD Work Phone: Neurology Comment on above: Refill Request Start: 03-17-2023 Refill Robert Marin MD Work Phone: Neurology Comment on above: Refill Request Start: 03-10-2023 End: 03-10-2023 Emergency department patient visit Kristine Welsh Facility:[facility] Start: 03-10-2023 Chart abstracting Robert barbour MD Work Phone: Neurology Start: 03-09-2023 End: 03-09-2023 ambulatory EVARISTO TORRES Facility:[facility] Start: 03-09-2023 End: 03-09-2023 ambulatory Evaristo Torres PA-C Work Phone: Neurosurgery Comment on above: S/P craniotomy (Prim jonah Dx) Start: 03-09-2023 End: 03-09-2023 Telemedicine consultation with patient Evaristo Torres PA-C Work Phone: [facility] Start: 02-07-2023 End: 02-08-2023 ambulatory [facility] Facility:[facility] Start: 02-07-2023 End: 02-07-2023 Nursing evaluation of patient and report Melida Martin RN Neurosurgery Comment on above: Visit for suture rem oval (Primary Dx) Start: 01-27-2023 Telephone encounter Antonella sanchez MD Work Phone: Neurology Comment on above: Received Outside Med Prediculous Records ([facility] [employer] ) Start: 01-26-2023 End: 01-30-2023 Evaluation and management of inpatient ANTONELLA DAVID Facility:[facility] Start: 01-25-2023 End: 01-26-2023 ambulatory [facility] Facility:[facility] Start: 01-24-2023 End: 01-24-2023 Patient encounter status Mri (I-Stat/1.5t/3t) Work Phone: MRI Q Start: 01-24-2023 End: 01-24-2023 Preprocedural examination done Mri (I-Stat/1.5t/3t) Work Phone: MRI Q Start: 01-24-2023 End: 01-24-2023 Subsequent hospital visit by physician Mri 3 Radio Main Q (I-Stat/1.5t/3t) Work Phone: MRI Q Comment on above: Encounter for other preprocedural examination [Z01.818] Start: 01-24-2023 End: 01-25-2023 ambulatory [facility] Facility:[facility] Start: 01-24-2023 End: 01-25-2023 ambulatory EVARISTO TORRES Facility:[facility] Start: 01-24-2023 Encounter for other preprocedural examination CLAUDIO MICHAELS [facility] Start: 01-13-2023 End: 01-13-2023 ambulatory JARAD SON Facility:[facility] Start: 01-12-2023 Telephone encounter Antonella sanchez MD Work Phone: Neurology Comment on above: Received Outside Med ical Records ([facility]) Start: 01-10-2023 End: 01-10-2023 Admission to same day surgery center Antonella David MD Work Phone: Neurosurgery Comment on above: Partial symptomatic epilepsy with complex partial seizures, not intractable, 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); Refractory epilepsy (HCC); Seizure (HCC); S/P brain surgery Schedule Surgery (ri ght-sided temporal craniotomy/) Start: 01-10-2023 End: 01-10-2023 ambulatory Antonella David MD Work Phone: [facility] Start: 01-10-2023 Patient encounter status Jose J David MD Work Phone: Neurosurgery Start: 01-10-2023 Preprocedural examination done Antonella David MD Work Phone: Neurosurgery Start: 01-10-2023 End: 01-10-2023 Telemedicine consultation with patient Antonella David MD Work Phone: [facility] Start: 01-05-2023 End: 01-05-2023 ambulatory ROBERT R MARIN Facility:[facility] Start: 01-05-2023 Telephone encounter Antonella sanchez MD Work Phone: Neurosurgery Comment on above: 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 Start: 01-04-2023 End: 01-05-2023 ambulatory REMI JORGE YUNGTER Facility:[facility] Start: 12-26-2022 Telephone encounter Antonella sanchez MD Work Phone: Neurology Comment on above: 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 Acute deep vein thro mbosis (DVT) of brachial vein of left upper extremity (HCC) (Primary Dx) Start: 12-23-2022 Telephone encounter Antonella sanchez MD Work Phone: Neurosurgery Comment on above: 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 Start: 12-20-2022 End: 12-20-2022 ambulatory ALYTON ALCALA Facility:[facility] Start: 12-06-2022 Chart abstracting Tomas sánchez MD Work Phone: [facility] Start: 12-01-2022 End: 12-24-2022 Evaluation and management of inpatient DEMITRE SERLETIS Facility:[facility] Start: 11-23-2022 Telephone encounter Antonella sanchez MD Work Phone: Neurosurgery Comment on above: Results; Care Coordi nator - Other Start: 11-22-2022 End: 11-23-2022 [facility] Start: 11-22-2022 Encounter for other preprocedural examination CLAUDIO MICHAELS [facility] Start: 11-22-2022 End: 11-22-2022 Nursing evaluation of patient and report Melida Martin RN Neurosurgery Comment on above: Preoperative examina tion (Primary Dx) Start: 11-22-2022 End: 11-22-2022 Preprocedural examination done Melida Martin RN Neurosurgery Start: 11-22-2022 End: 11-23-2022 [facility] EVARISTO CHAUNCEY Facility:[facility] Start: 11-22-2022 End: 11-22-2022 Admission to establishment Pacc Main 6 Work Phone: [facility] Start: 11-22-2022 End: 11-22-2022 ambulatory Pacc Main 6 Work Phone: Pre Anesthesia Comment on above: Pre-op evaluation (P rimary Dx) Start: 11-22-2022 End: 11-22-2022 Preprocedural examination done Pacc Main 6 Work Phone: Pre Anesthesia Start: 11-22-2022 End: 11-22-2022 ambulatory [facility] Facility:[facility] Start: 11-22-2022 Encounter for other preprocedural examination CLAUDIO MICHAELS [facility] Start: 11-22-2022 Encounter for preprocedural cardiovascular examination CHRISTIANO VACA [facility] Start: 11-22-2022 End: 11-23-2022 ambulatory EVARISTO TORRES Facility:[facility] Start: 11-22-2022 Encounter for other preprocedural examination CLAUDIO [facility] Start: 11-22-2022 End: 11-22-2022 Subsequent hospital visit by physician Mri 3 Radio Main Q (I-Stat/1.5t/3t) Work Phone: MRI Q Comment on above: Encounter for other preprocedural examination [Z01.818] Start: 11-22-2022 End: 11-22-2022 Patient encounter procedure Christiano Vaca MD Work Phone: Cardiology Comment on above: Preoperative cardiov ascular examination (Primary Dx); Partial symptomatic epilepsy with complex partial seizures, not intractable, without status epilepticus (HCC); Preoperative testing Start: 11-22-2022 End: 11-22-2022 Patient encounter status Christiano Vaca MD Work Phone: MRI Q Start: 10-21-2022 Orders Only Christiano wooten MD Work Phone: Cardiology Comment on above: Pre-op evaluation (P rimary Dx) Start: 10-21-2022 Preprocedural examination done Christiano Vaca MD Work Phone: Cardiology Start: 10-19-2022 Admission to [facility] Antonella David MD Work Phone: Neurosurgery Comment on above: Schedule Surgery (Ri ght SEEG) Start: 10-19-2022 ambulatory Antonella solares MD Work Phone: [facility] Start: 10-19-2022 Patient encounter status Jose J David MD Work Phone: Neurosurgery Start: 10-18-2022 End: 10-18-2022 ambulatory ROBERT R MARIN Facility:[facility] Start: 10-18-2022 End: 10-18-2022 Subsequent hospital visit by physician Jenna Singh [facility] Research (7t) Work Phone: Radiology Comment on above: Partial symptomatic epilepsy with complex partial seizures, not intractable, without status epilepticus (HCC) [G40.209] Start: 10-17-2022 End: 10-17-2022 ambulatory ANTONELLA DAVID Facility:[facility] Start: 10-17-2022 End: 10-17-2022 ambulatory Antonella David MD Work Phone: Neurosurgery Comment on above: Partial symptomatic epilepsy with complex partial seizures, not intractable, 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); Seizure (HCC) Start: 10-17-2022 End: 10-17-2022 Telemedicine consultation with patient Antonella David MD Work Phone: [facility] Start: 10-12-2022 End: 10-13-2022 ambulatory ROBERT R MARIN Facility:[facility] Start: 10-12-2022 End: 10-12-2022 Patient encounter procedure Robert Marin MD Work Phone: Neurology Comment on above: Partial symptomatic epilepsy with complex partial seizures, not intractable, 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); Seizure (HCC) Start: 10-04-2022 End: 10-04-2022 ambulatory REMI ANDREW Facility:[facility] Start: 10-03-2022 End: 10-04-2022 ambulatory NYASIA OJEDA Facility:[facility] Start: 10-02-2022 End: 10-03-2022 Emergency department patient visit MD Remi Andrew Work Phone: [facility] Work Phone: Start: 09-28-2022 End: 09-28-2022 ambulatory ROBERT R MARIN Facility:[facility] Start: 09-28-2022 End: 09-28-2022 ambulatory Robert Marin MD Work Phone: Neurology Comment on above: Partial symptomatic epilepsy with complex partial seizures, not intractable, 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) Start: 09-28-2022 End: 09-28-2022 Telemedicine consultation with patient Robert Marin MD Work Phone: [facility] Start: 09-20-2022 ambulatory Robert Marin MD Work Phone: Neurology Comment on above: Return to work Start: 09-16-2022 End: 09-16-2022 Patient encounter procedure Ana Work Phone: Neurology Comment on above: Partial symptomatic epilepsy with complex partial seizures, not intractable, without status epilepticus (HCC) Start: 09-09-2022 Chart abstracting Claudio Sánchez PRN.CNP Work Phone: Neurosurgery Start: 09-08-2022 End: 09-08-2022 Subsequent hospital visit by physician Jenna Pa (I-Stat/3t) Work Phone: Radiology Comment on above: Partial symptomatic epilepsy with complex partial seizures, not intractable, without status epilepticus (HCC) [G40.209] Start: 09-03-2022 ambulatory Nurse [employer]phalt [employer] NURSE GUN STRIPER Comment on above: Medication Problem ( Possible side effects to medication) Start: 08-31-2022 Chart abstracting Katelin dean Research Coordinator Neurology Start: 08-30-2022 Telephone encounter Robert camp MD Work Phone: Neurology Comment on above: Nm Pet Request Start: 08-29-2022 Chart abstracting Katelin dean Research Coordinator Neurology Comment on above: Informed Consent (IR B [id number]) Start: 08-25-2022 Telephone encounter Robert camp MD Work Phone: Neurology Comment on above: Other ([facility] ED calling to speak with Dr. Marin; pt in ED d/t seizures) Start: 08-25-2022 End: 08-26-2022 Emergency department patient visit MD Remi Andrew Work Phone: [facility] Work Phone: Start: 07-14-2022 End: 07-15-2022 Emergency department patient visit MD Remi Andrew Work Phone: [facility] Start: 07-11-2022 End: 07-11-2022 ambulatory Robert Marin MD Work Phone: Neurology Comment on above: Partial symptomatic epilepsy with complex partial seizures, not intractable, 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) Start: 07-11-2022 End: 07-11-2022 Telemedicine consultation with patient Robert Marin MD Work Phone: [facility] Start: 06-16-2022 Telephone encounter Robert camp MD Work Phone: Neurology Comment on above: Forms ([facility] b oard of DD/) Start: 05-03-2022 End: 05-03-2022 ambulatory Jorge Galvez MD Work Phone: Cardiology Comment on above: Palpitations [R00.2 (ICD-10-CM)] (Primary Dx) Start: 05-03-2022 End: 05-03-2022 Telemedicine consultation with patient Jorge Galvez MD Work Phone: [facility] Start: 04-27-2022 ambulatory Jorge Galvez MD Work Phone: Cardiology Comment on above: Question regarding L VEF TRANSTHORACIC ECHO Start: 04-07-2022 End: 04-07-2022 ambulatory Arrhythmia Monitoring Lab Work Phone: Cardiology Comment on above: event monitor (zio) Start: 04-05-2022 Telephone encounter Robert camp MD Work Phone: Neurology Comment on above: Medication Problem ( Patient had severe symptoms after first dose of Zonisamide and received care in ED) Start: 04-04-2022 End: 04-05-2022 Emergency department patient visit MD Remi Andrew Work Phone: [facility] Start: 03-28-2022 End: 03-28-2022 ambulatory Robert Marin MD Work Phone: Neurology Comment on above: Partial symptomatic epilepsy with complex partial seizures, not intractable, without status epilepticus (HCC) Start: 03-28-2022 End: 03-28-2022 Telemedicine consultation with patient Robert Marin MD Work Phone: [facility] Start: 03-16-2022 End: 03-16-2022 Patient encounter procedure MD Remi Andrew Work Phone: [facility]Electrodiagnostics Start: 03-14-2022 End: 03-14-2022 Emergency department patient visit MD Remi Andrew Work Phone: [facility] Start: 03-14-2022 Telephone encounter Robert camp MD Work Phone: Neurology Comment on above: Medication Problem ( AEDs - Shaky, Lightheaded, Increased Heart Rate) Start: 02-10-2022 Telephone encounter Robert camp MD Work Phone: Neurology Comment on above: medication concern ( lamical and keppra) Seizures Start: 02-10-2022 End: 02-10-2022 Emergency department patient visit MD Remi Andrew Work Phone: [facility] Start: 01-29-2022 End: 01-29-2022 Emergency department patient visit MD Remi Andrew Work Phone: [facility] Start: 01-05-2022 End: 01-05-2022 Subsequent hospital visit by physician Mr Lakeisha Holland (Istat/3t) Work Phone: [facility] MRI Comment on above: Partial symptomatic epilepsy with complex partial seizures, not intractable, without status epilepticus (HCC) [G40.209] Start: 12-23-2021 Telephone encounter Robert camp MD Work Phone: Neurology Comment on above: medication concern ( vimpat issues) Start: 12-22-2021 End: 12-22-2021 Patient encounter procedure Robert Marin MD Work Phone: Neurology Comment on above: Partial symptomatic epilepsy with complex partial seizures, not intractable, without status epilepticus (HCC) Start: 11-18-2021 Patient encounter procedure Radha Cotter BLACKSMITH SUPERVISOR.LEVEL VIAL SETTER Work Phone: Neurology Comment on above: Convulsions, unspeci fied convulsion type (HCC) (Primary Dx) Procedures Date Procedure Procedure Detail Performing Clinician Start: 09-14-2023 [facility] CULTURE URINE Gener ic External Data Provider Start: 07-21-2023 Mri brain brain stem w/o contrast material Claudio Michaels APRN.LEVEL VIAL SETTER Work Phone: Start: 01-25-2023 Antibody screen CLAUDIO HOOD Comment on above: Order Comment: Speci men Type: BLOOD SPECIMENOrdering Facility: [facility] Address: [address] [place] [address] Performed By: #### T [id number] ####CC MAIN BLOOD BANKCLIA [id number] [address] Start: 01-24-2023 Unlisted magnetic re sonance procedure Evaristo Torres PA-C Work Phone: Start: 12-22-2022 Antibody screen CLAUDIO HOOD Comment on above: Order Comment: Speci men Type: BLOOD SPECIMENOrdering Facility: [facility] Address: [address] [place] [place] [address] Performed By: #### T SCR ####CC MAIN BLOOD BANKCLIA [id number] [address] Start: 12-03-2022 H/O: surgery S/P brain surgery Keyshawn Morrison MD Work Phone: Start: 11-22-2022 Antibody screen CLAUDIO HOOD Comment on above: Order Comment: Speci men Type: BLOOD SPECIMENOrdering Facility: [facility] Address: [address] [place] [address] Performed By: #### T [id number] ####CC MAIN BLOOD BANKCLIA [id number] [address] Start: 11-22-2022 Ct angiography head w/contrast/noncontrast Evaristo Torres PA-C Work Phone: Start: 11-22-2022 Unlisted magnetic re sonance procedure Evaristo Torres PA-C Work Phone: Start: 10-18-2022 Mri brain brain stem w/o contrast material Robert Marin MD Work Phone: Start: 10-02-2022 SARS-CoV-2, Influenz a & RSV (PCR) MD Remi Andrew Work Phone: Start: 09-16-2022 Magnetoencephalograp hy spon brain activity Leena Greenberg PA-C Work Phone: Start: 09-08-2022 MRI 3D POST PROCESSING Leena Greenberg PA-C Work Phone: Start: 09-08-2022 MRI BRAIN FUNCTIONAL W PHYS WO IVCON Leena Greenberg PA-C Work Phone: Start: 08-25-2022 SARS Antigen (LFIA) MD Remi Andrew Work Phone: Start: 08-25-2022 Urine culture MD Remi Andrew Work Phone: Start: 07-15-2022 CT of abdomen and pe lvis without contrast MD Remi Andrew Work Phone: Start: 07-14-2022 Urine culture MD Remi Andrew Work Phone: Start: 03-27-2022 Adult depression scr eening assessment Robert Marin MD Work Phone: Start: 03-14-2022 Plain chest X-ray MD Denys Andrew Work Phone: Start: 01-05-2022 Mri brain brain stem w/o contrast material Robert Marin MD Work Phone: Start: 12-21-2021 Adult depression scr eening assessment Robert Marin MD Work Phone: Bacteria identification test MD Remi Andrew Work Phone: H/O: surgery S/P brain surgery Antonella sanchez MD Work Phone: H/O: surgery S/P brain surgery Robert camp MD Work Phone: H/O: surgery S/P brain surgery Claudio Michaels APRN.LEVEL VIAL SETTER Work Phone: H/O: surgery S/P brain surgery Christie Aldana MILITARY SOURCE OPERATIONS SPECIALIST Work Phone: Urine culture MD Remi barbour Work Phone: Plan of Treatment Date Care Activity Detail Author Start: 04-10-2025 Urine microalbumin profile [facility] Start: 02-11-2024 Influenza vaccination [facility] Comment on above: Postponed from 04/14 (Patient Refused) Start: 10-15-2023 Screening for malign ant neoplasm of cervix Pap Testing [facility] Start: 09-20-2023 End: 09-20-2023 Patient encounter procedure 09/20/2023 3:40 PM EST Office Visit [facility] [address] [place] [address] Christie Aldana, MILITARY SOURCE OPERATIONS SPECIALIST [address] [place] [address] [facility] Start: 04-14-2023 Covid-19 Vaccine ( season) Covid-19 Vaccine () [facility] Start: 04-14-2023 Influenza vaccination C [facility] Start: 03-27-2023 Adult depression screening assessment DEPRESSION SCREENING [facility] Start: 01-24-2023 End: 03-26-2023 aPTT in Platelet poor plasma by Coagulation assay ACTIVATED PTT Lab Routine Preoperative examination Expected: 01/24/2023, Expires: 03/26/2023 [facility] Work Phone: Comment on above: Expected: 01/24/2023 , Expires: 03/26/2023 Start: 01-24-2023 End: 03-26-2023 CBC panel - Blood by Automated count CBC Lab Routine Preoperative examination Expected: 01/24/2023, Expires: 03/26/2023 [facility] Work Phone: Comment on above: Expected: 01/24/2023 , Expires: 03/26/2023 Start: 01-24-2023 End: 03-26-2023 Comprehensive metabolic 2000 panel - Serum or Plasma COMP METABOLIC PANEL Lab Routine Preoperative examination Expected: 01/24/2023, Expires: 03/26/2023 [facility] Work Phone: Comment on above: Expected: 01/24/2023 , Expires: 03/26/2023 Start: 01-24-2023 End: 03-26-2023 PT panel - Platelet poor plasma by Coagulation assay PROTHROMBIN TIME/PT Lab Routine Preoperative examination Expected: 01/24/2023, Expires: 03/26/2023 [facility] Work Phone: Comment on above: Expected: 01/24/2023 , Expires: 03/26/2023 Start: 01-24-2023 End: 07-09-2023 STAPH AUREUS PCR STAPH AUREUS PCR Lab Routine Preoperative examination Expected: 01/24/2023, Expires: 07/09/2023 [facility] Work Phone: Comment on above: Expected: 01/24/2023 , Expires: 07/09/2023 Start: 01-06-2023 End: 01-25-2024 US DVT UPPER LEFT US DVT UPPER LEFT Radiology Routine Acute deep vein thrombosis (DVT) of axillary vein of left upper extremity (HCC) Expected: 01/06/2023, Expires: 01/25/2024 [facility] Work Phone: Comment on above: Expected: 01/06/2023 , Expires: 01/25/2024 Start: 01-04-2023 End: 12-27-2023 US ARM VEIN DVT UNL VAS LAB US ARM VEIN DVT UNL VAS LAB Vascular Lab Routine Acute deep vein thrombosis (DVT) of brachial vein of left upper extremity (HCC) Expected: 01/04/2023, Expires: 12/27/2023 [facility] Work Phone: Comment on above: Expected: 01/04/2023 , Expires: 12/27/2023 Start: 12-28-2022 End: 12-27-2023 US ARM VEIN DVT UNL VAS LAB US ARM VEIN DVT UNL VAS LAB Vascular Lab Routine Acute deep vein thrombosis (DVT) of brachial vein of left upper extremity (HCC) Expected: 12/28/2022, Expires: 12/27/2023 [facility] Work Phone: Comment on above: Expected: 12/28/2022 , Expires: 12/27/2023 Start: 12-27-2022 End: 01-25-2024 US DVT UPPER LEFT US DVT UPPER LEFT Radiology Routine Acute deep vein thrombosis (DVT) of axillary vein of left upper extremity (HCC) Expected: 12/27/2022, Expires: 01/25/2024 [facility] Work Phone: Comment on above: Expected: 12/27/2022 , Expires: 01/25/2024 Start: 12-21-2022 Adult depression screening assessment DEPRESSION SCREENING [facility] Start: 11-22-2022 End: 01-22-2023 aPTT in Platelet poor plasma by Coagulation assay ACTIVATED PTT Lab Routine Preoperative testing Expected: 11/22/2022, Expires: 01/22/2023 [facility] Work Phone: Comment on above: Expected: 11/22/2022 , Expires: 01/22/2023 Start: 11-22-2022 End: 01-22-2023 CBC panel - Blood by Automated count CBC Lab Routine Preoperative testing Expected: 11/22/2022, Expires: 01/22/2023 [facility] Work Phone: Comment on above: Expected: 11/22/2022 , Expires: 01/22/2023 Start: 11-22-2022 End: 01-22-2023 Comprehensive metabolic 2000 panel - Serum or Plasma COMP METABOLIC PANEL Lab Routine Preoperative testing Expected: 11/22/2022, Expires: 01/22/2023 [facility] Work Phone: Comment on above: Expected: 11/22/2022 , Expires: 01/22/2023 Start: 11-22-2022 End: 01-22-2023 CONFIRM BLOOD TYPE CONFIRM BLOOD TYPE Blood Bank Routine Preoperative testing Expected: 11/22/2022, Expires: 01/22/2023 [facility] Work Phone: Comment on above: Expected: 11/22/2022 , Expires: 01/22/2023 Start: 11-22-2022 End: 11-18-2023 CTA HEAD W IVCON CTA HEAD W IVCON Radiology Routine Encounter for other preprocedural examination Partial symptomatic epilepsy with complex partial seizures, not intractable, without status epilepticus (HCC) Preoperative testing Expected: 11/22/2022, Expires: 11/18/2023 [facility] Work Phone: Comment on above: Expected: 11/22/2022 , Expires: 11/18/2023 Start: 11-22-2022 End: 01-22-2023 PT panel - Platelet poor plasma by Coagulation assay PROTHROMBIN TIME/PT Lab Routine Preoperative testing Expected: 11/22/2022, Expires: 01/22/2023 [facility] Work Phone: Comment on above: Expected: 11/22/2022 , Expires: 01/22/2023 Start: 11-22-2022 End: 04-17-2023 STAPH AUREUS PCR STAPH AUREUS PCR Lab Routine Preoperative testing Expected: 11/22/2022, Expires: 04/17/2023 [facility] Work Phone: Comment on above: Expected: 11/22/2022 , Expires: 04/17/2023 Start: 11-22-2022 End: 01-22-2023 TYPE AND SCREEN,30 DAY TYPE AND SCREEN,30 DAY Blood Bank Routine Preoperative testing Expected: 11/22/2022, Expires: 01/22/2023 [facility] Work Phone: Comment on above: Expected: 11/22/2022 , Expires: 01/22/2023 Start: 11-22-2022 End: 11-18-2023 Unlisted magnetic resonance procedure MRI BRAIN LOCALIZATION W IVCON Radiology Routine Encounter for other preprocedural examination Partial symptomatic epilepsy with complex partial seizures, not intractable, without status epilepticus (HCC) Preoperative testing Expected: 11/22/2022, Expires: 11/18/2023 [facility] Work Phone: Comment on above: Expected: 11/22/2022 , Expires: 11/18/2023 Start: 10-02-2022 CT of head without contrast CT head/brain wo con [facility] Start: 10-02-2022 CT Unspecified body region WO [facility] Start: 10-02-2022 Bacteria identified in Urine by Culture [facility] Start: 09-29-2022 End: 11-29-2022 AUTOIMMUNE ENCEPHALOPATHY EVALUATION, SERUM AUTOIMMUNE ENCEPHALOPATHY EVALUATION, SERUM Lab Routine Partial symptomatic epilepsy with complex partial seizures, not intractable, without status epilepticus (HCC) Expected: 09/29/2022, Expires: 11/29/2022 [facility] Work Phone: Comment on above: Expected: 09/29/2022 , Expires: 11/29/2022 Start: 08-25-2022 Urine culture Urine Culture [facility] Start: 08-25-2022 Lamotrigine measurement [facility] Start: 07-15-2022 CT Abdomen and Pelvi s WO contrast [facility] Start: 07-15-2022 CT of abdomen and pe lvis without contrast CT abdomen pelvis wo [facility] Start: 07-11-2022 End: 09-10-2022 CBC panel - Blood by Automated count CBC Lab Routine Partial symptomatic epilepsy with complex partial seizures, not intractable, without status epilepticus (HCC) Expected: 07/11/2022, Expires: 09/10/2022 [facility] Work Phone: Comment on above: Expected: 07/11/2022 , Expires: 09/10/2022 Start: 07-11-2022 End: 09-10-2022 Comprehensive metabolic 2000 panel - Serum or Plasma COMP METABOLIC PANEL Lab Routine Partial symptomatic epilepsy with complex partial seizures, not intractable, without status epilepticus (HCC) Expected: 07/11/2022, Expires: 09/10/2022 [facility] Work Phone: Comment on above: Expected: 07/11/2022 , Expires: 09/10/2022 Start: 07-11-2022 End: 09-10-2022 lamoTRIgine [Mass/volume] in Serum or Plasma LAMOTRIGINE Lab Routine Partial symptomatic epilepsy with complex partial seizures, not intractable, without status epilepticus (HCC) Expected: 07/11/2022, Expires: 09/10/2022 [facility] Work Phone: Comment on above: Expected: 07/11/2022 , Expires: 09/10/2022 Start: 04-14-2022 Influenza vaccination [facility] Start: 04-06-2022 End: 06-06-2022 lamoTRIgine [Mass/volume] in Serum or Plasma LAMOTRIGINE Lab Routine Partial symptomatic epilepsy with complex partial seizures, not intractable, without status epilepticus (HCC) Expected: 04/06/2022, Expires: 06/06/2022 [facility] Work Phone: Comment on above: Expected: 04/06/2022 , Expires: 06/06/2022 Start: 04-04-2022 End: 04-05-2022 Emergency department patient visit Departed Emergency [facility] Start: 02-10-2022 End: 04-12-2022 lamoTRIgine [Mass/volume] in Serum or Plasma LAMOTRIGINE Lab Routine Partial symptomatic epilepsy with complex partial seizures, not intractable, without status epilepticus (HCC) Expected: 02/10/2022, Expires: 04/12/2022 [facility] Work Phone: Comment on above: Expected: 02/10/2022 , Expires: 04/12/2022 Start: 2021 Urine microalbumin profile DTAP,TDAP,TD (1 - Tdap) [facility] Start: 08-14-2021 DEPRESSION ASSESSMENT DEPRESSION ASS ESSMENT [facility] Start: 12-23-2020 Meningococcal B Vacc ine: Consider Based On Risk (2 of 2 - Risk Bexsero 2-dose series) Meningococcal B Vaccine: Consider Based On Risk (2 of 2 - Risk Bexsero 2-dose series) [facility] Start: 12-23-2020 MENINGOCOCCAL B: Consider based on risk (2 of 2 - Risk Bexsero 2-dose series) MENINGOCOCCAL B: Consider based on risk (2 of 2 - Risk Bexsero 2-dose series) [facility] Start: 2020 CHLAMYDIA SCREENING (18-24) CHLAMYDIA SCREENING (1824) [facility] Start: 2020 GC (GONORRHEA) SCREE GALINDO (18-24) GC (GONORRHEA) SCREENING (1824) [facility] Start: 2020 HEPATITIS C SCREENING HEPATITIS C [facility] Start: 2020 Hepatitis C screening Hepatitis C [facility] Start: 2020 HIV SCREENING HIV SCREENING [facility] Start: 2020 HIV screening HIV Screening [facility] Start: 2020 Screening for Chlamy nova trachomatis Chlamydia Screening () [facility] Start: 2016 PEDS TO ADULT TRANSI TION ANNUAL ASSESSMENT PEDS TO ADULT TRANSITION ANNUAL ASSESSMENT [facility] Start: 2014 PEDS TO ADULT TRANSI TION INITIAL DISCUSSION PEDS TO ADULT TRANSITION INITIAL DISCUSSION [facility] Start: 2013 HPV VACCINE (1 - 2-d ose series) HPV VACCINE (1 - 2-dose series) [facility] Start: 2012 MENINGOCOCCAL B: Consider based on risk (1 of 2 - Risk Bexsero 2-dose series) MENINGOCOCCAL B: Consider based on risk (1 of 2 - Risk Bexsero 2-dose series) [facility] Start: 10-15-2007 COVID-19 VACCINE (#1) COVID-19 VACCI NE (#1) [facility] Start: 05-31-2004 HEPATITIS B (3 of 3 - 3-dose series) HEPATITIS B (3 of 3 - 3-dose series) [facility] Start: 04-16-2003 COVID-19 VACCINE (#1) COVID-19 VACCI NE (#1) [facility] Start: 2002 HEPATITIS B (1 of 3 - 3-dose series) HEPATITIS B (1 of 3 - 3-dose series) [facility] Bacteria identified in Urine by Culture [facility] End: 10-20-2023 ECG COMPLETE ECG COMPLETE ECG Routine Preoperative testing 1 Occurrences starting 10/19/2022 until 10/20/2023 [facility] Work Phone: Comment on above: 1 Occurrences starti ng 10/19/2022 until 10/20/2023 End: 10-22-2023 ECG COMPLETE ECG COMPLETE ECG Routine Pre-op evaluation 1 Occurrences starting 10/21/2022 until 10/22/2023 [facility] Work Phone: Comment on above: 1 Occurrences starti ng 10/21/2022 until 10/22/2023 End: 11-19-2022 EPIL EEG LONG EPIL EEG LONG NEUROLOGY Routine Convulsions, unspecified convulsion type (HCC) 1 Occurrences starting 11/19/2021 until 11/19/2022 [facility] Work Phone: Comment on above: 1 Occurrences starti ng 11/19/2021 until 11/19/2022 End: 09-09-2023 EPIL EEG W PROCEDURE EPIL EEG W PROCEDURE NEUROLOGY Routine Partial symptomatic epilepsy with complex partial seizures, not intractable, without status epilepticus (HCC) 1 Occurrences starting 09/09/2022 until 09/09/2023 [facility] Work Phone: Comment on above: 1 Occurrences starti ng 09/09/2022 until 09/09/2023 End: 01-22-2023 Mri brain brain stem w/o contrast material MRI BRAIN WO IVCON Radiology Routine Partial symptomatic epilepsy with complex partial seizures, not intractable, without status epilepticus (HCC) 1 Occurrences starting 12/22/2021 until 01/22/2023 [facility] Work Phone: Comment on above: 1 Occurrences starti ng 12/22/2021 until 01/22/2023 End: 10-29-2023 Mri brain brain stem w/o contrast material MRI BRAIN WO IVCON Radiology Routine Partial symptomatic epilepsy with complex partial seizures, not intractable, without status epilepticus (HCC) 1 Occurrences starting 09/29/2022 until 10/29/2023 [facility] Work Phone: Comment on above: 1 Occurrences starti ng 09/29/2022 until 10/29/2023 End: 04-08-2024 Mri brain brain stem w/o contrast material MRI BRAIN WO IVCON Radiology Routine Partial symptomatic epilepsy with complex partial seizures, not intractable, without status epilepticus (HCC) S/P brain surgery 1 Occurrences starting 03/10/2023 until 04/08/2024 [facility] Work Phone: Comment on above: 1 Occurrences starti ng 03/10/2023 until 04/08/2024 Patient Education [facility] Work Phone: Patient referral [facility] Work Phone: REFER FOR ADMIT INTERVIEW REFER FOR ADMIT INTERVIEW Procedures Routine Preoperative testing Ordered: 10/19/2022 [facility] Work Phone: Comment on above: Ordered: 10/19/2022 REFER FOR ADMIT INTERVIEW REFER FOR ADMIT INTERVIEW Procedures Routine Preoperative examination Ordered: 01/10/2023 [facility] Work Phone: Comment on above: Ordered: 01/10/2023 [facility] CULTURE URINE [facility] CULTURE UR INE Lab Routine 09/14/2023 8:59 PM [facility] End: 02-09-2024 Unlisted magnetic resonance procedure MRI BRAIN LOCALIZATION WO IVCON Radiology Routine Encounter for other preprocedural examination Partial symptomatic epilepsy with complex partial seizures, not intractable, without status epilepticus (HCC) Preoperative examination 1 Occurrences starting 01/10/2023 until 02/09/2024 [facility] Work Phone: Comment on above: 1 Occurrences starti ng 01/10/2023 until 02/09/2024 [facility] Immunizations Immunization Date Immunization Notes Care Provider Fa cili 02-17-2021 Human Papillomavirus 9-valent vaccine Tomas Morrison MD Work Phone: [facility] 11-25-2020 Human Papillomavirus 9-valent vaccine Tomas Morrison MD Work Phone: [facility] 11-25-2020 meningococcal B vacc ine, recombinant, OMV, adjuvanted Tomas Morrison MD Work Phone: [facility] 05-08-2020 meningococcal polysaccharide (groups A, C, Y and W-135) diphtheria toxoid conjugate vaccine (MCV4P) Tomas Morrison MD Work Phone: [facility] 02-23-2018 human papilloma viru s vaccine, quadrivalent Tomas Morrison MD Work Phone: [facility] 02-23-2018 meningococcal polysaccharide (groups A, C, Y and W-135) diphtheria toxoid conjugate vaccine (MCV4P) Tomas Morrison MD Work Phone: [facility] 04-10-2015 tetanus toxoid, redu siri diphtheria toxoid, and acellular pertussis vaccine, adsorbed Tomas Morrison MD Work Phone: [facility] 05-01-2008 diphtheria, tetanus toxoids and acellular pertussis vaccine Tomas Morrison MD Work Phone: [facility] 05-01-2008 measles, mumps and rubella virus vaccine Tomas Morrison MD Work Phone: [facility] 05-01-2008 varicella virus vaccine Laura Morrison MD Work Phone: [facility] 12-12-2005 diphtheria, tetanus toxoids and acellular pertussis vaccine Tomas Morrison MD Work Phone: [facility] 12-12-2005 pneumococcal conjuga te vaccine, 7 valent Tomas Morrison MD Work Phone: [facility] 12-12-2005 poliovirus vaccine, inactivated Tomas Morrison MD Work Phone: [facility] 06-17-2004 diphtheria, tetanus toxoids and acellular pertussis vaccine Tomas Morrison MD Work Phone: [facility] 06-17-2004 pneumococcal conjuga te vaccine, Miguel Morrison MD Work Phone: [facility] 06-17-2004 poliovirus vaccine, inactivated Tomas Morrison MD Work Phone: [facility] 04-05-2004 diphtheria, tetanus toxoids and acellular pertussis vaccine Tomas Morrison MD Work Phone: [facility] 04-05-2004 haemophilus influenz ae type b conjugate and Hepatitis B vaccine Tomas Morrison MD Work Phone: [facility] 04-05-2004 pneumococcal conjuga te vaccine, Miguel Morrison MD Work Phone: [facility] 04-05-2004 poliovirus vaccine, inactivated Tomas Morrison MD Work Phone: [facility] 04-05-2004 hepatitis B vaccine, unspecified formulation Tomas Morrison MD Work Phone: [facility] 12-03-2003 diphtheria, tetanus toxoids and acellular pertussis vaccine Tomas Morrison MD Work Phone: [facility] 12-03-2003 haemophilus influenz ae type b conjugate and Hepatitis B vaccine Tomas Morrison MD Work Phone: [facility] 12-03-2003 measles, mumps and rubella virus vaccine Tomas Morrison MD Work Phone: [facility] 12-03-2003 pneumococcal conjuga te vaccine, 7 nickoent Tomas Morrison MD Work Phone: [facility] 12-03-2003 poliovirus vaccine, inactivated Tomas Morrison MD Work Phone: [facility] 12-03-2003 varicella virus vaccine Laura Morrison MD Work Phone: [facility] 2002 hepatitis B vaccine, pediatric or pediatric/adolescent dosage Generic Provider [facility] Payers Date Payer Category Payer Medicaid [employer] [place] [employer] [place] [place] [id number] 2023-Present [address] [address] [place] [address] [id number] 2023 Self-pay [id number] 2023 Unknown [id number] 2023 Medicaid [id number] 2023 Private Health Insurance [employer] MEDICAID [facility] [id number] 2023-Present [address] [address] [place] [address] Medicaid [id number] 2020 Unknown MMO MMO [employer] [id number] 2020-Present [phone] [address] [place] [address] PPO [id number] 2020 Unknown [id number] 2020 Unknown [id number] 2016 Unknown [employer] BLUE CARD PPO OOS [id number] 2016-Present [phone] [address] [place] [address] PPO [id number] 2002 Unknown [id number] 2002 Unknown [id number] 2002 Unknown [id number] [id number] 2002 Unknown [id number] [id number] 2002 Unknown [id number] Medicaid [employer] [id number] Unknown [place] BC/BS [id number] Unknown Regular [employer] [id number] Unknown [id number] Unknown [id number] Social History Date Type Detail Facility Start: 10-19-2016 End: 10-12-2022 Tobacco smoking status NHIS Never smoked tobacco [facility] Start: 10-22-2016 End: 07-11-2022 Alcohol intake Current non-drinker of alcohol (finding) [facility] Start: 2002 Sex Assigned At Not on file [facility] Start: 10-19-2016 End: 10-12-2022 Tobacco use and exposure Smokeless tobacco non-user [facility] Start: 2002 Sex Assigned At Female [facility] Start: 12-12-2021 End: 04-07-2022 Exposure to SARS-CoV-2 (event) Not sure [facility] Start: 10-03-2022 History SDOH Financial 5 [facility] Start: 10-03-2022 End: 01-27-2023 History SDOH Food Worry 1 [facility] Start: 10-03-2022 End: 01-27-2023 History SDOH Transport Med 2 [facility] Start: 01-24-2023 End: 08-26-2023 Alcohol intake Current drinker of alcohol (finding) [facility] Start: 01-24-2023 Alcohol Comment Once every 3 months per pt 01/24/2023 [facility] Start: 01-27-2023 History SDOH Financial 4 [facility] Start: 01-24-2023 End: 07-24-2023 History of Social function [facility] Start: 01-24-2023 End: 07-24-2023 Tobacco use panel [facility] How hard is it for y ou to pay for the very basics like food, housing, medical care, and heating Not very hard [facility] Adult Depression Screening Assessment 0 [facility] (I/We) worried wheth er (my/our) food would run out before (I/we) got money to buy more. Never true [facility] In the past 12 month s, was there a time when you were not able to pay the mortgage or rent on time? No [facility] Start: 12-21-2021 Gender identity Identifies as female gender (finding) [facility] Start: 12-21-2021 Sexual orientation Heterosexual (finding) [facility] Start: 07-11-2023 Tobacco smoking status NHIS Smoker (finding) [facility] Start: 06-30-2023 Tobacco smoking status [facility] [[email or web address] Occasional tobacco smoker [facility] History of tobacco use Cigarette Smoker [facility] Start: 09-02-2023 End: 09-20-2023 Alcohol intake Lifetime non-drinker (finding) [facility] Are you now , , , , never or living with a partner? Refused [facility] How often to you hav e a drink containing alcohol? Never [facility] How hard is it for y ou to pay for the very basics like food, housing, medical care, and heating Hard [facility] Do you feel stress - tense, restless, nervous, or anxious, or unable to sleep at night because your mind is troubled all the time - these days [OSQ] Very much [facility] (I/We) worried wheth er (my/our) food would run out before (I/we) got money to buy more. Sometimes true [facility] Start: 06-29-2023 Alcohol Comment caffeine: 1-2 cups per day [facility] Tobacco smoking status No Smokin g Status Entered [facility] Medical Equipment Procedure Code Equipment Code Equipment Origin al Text Equipment Identifier Dates Depth Electrode [place] 2.5mm X 21mm [id number] Start: 12-01-2022 Electrode Depth 12 Contact 5 [id number] Start: 12-01-2022 Patch Duramatrix -Onlay Plus Collagen 5x4in Dural Regeneration Membrane - [id number] Start: 01-26-2023 Cover 10mm Mediu m Titanium [place] Low Profile Tab 1.5mm Screws - [id number] Start: 01-26-2023 Screw Bone Unive rsal Neuro 3 4mm 1.5mm Self Drill Axial Stability Latex - [id number] Start: 01-26-2023 Depth Electrode [place] An[place] 2.5mm X 13mm [id number] Start: 12-01-2022 Depth Electrode [place] 2.5mm X 13mm [id number] Start: 12-01-2022 Depth Electrode [place] 2.5mm X 13mm [id number] Start: 12-01-2022 Depth Electrode [place] An[place] 2.5mm X 13mm [id number] Start: 12-01-2022 Depth Electrode [place] An[place] 2.5mm X 13mm [id number] Start: 12-01-2022 Depth Electrode [place] 2.5mm X 13mm [id number] Start: 12-01-2022 Depth Electrode [place] 2.5mm X 13mm [id number] Start: 12-01-2022 Depth Electrode [place] 2.5mm X 13mm [id number] Start: 12-01-2022 Depth Electrode [place] An[place] 2.5mm X 13mm [id number] Start: 12-01-2022 Depth Electrode [place] 2.5mm X 21mm [id number] Start: 12-01-2022 Depth Electrode [place] 2.5mm X 13mm [id number] Start: 12-01-2022 Depth Electrode [place] 2.5mm X 13mm [id number] Start: 12-01-2022 Depth Electrode [place] 2.5mm X 13mm [id number] Start: 12-01-2022 Depth Electrode [place] 2.5mm X 13mm [id number] Start: 12-01-2022 Electrode Depth 10 Contact 5 [id number] Start: 12-01-2022 Depth Electrode [place] 2.5mm X 13mm [id number] Start: 12-01-2022 Depth Electrode [place] An[place] 2.5mm X 13mm [id number] Start: 12-01-2022 Electrode Depth 12 Contact 5 [id number] Start: 12-01-2022 Elctrd Spc Dpth 8 Contct 5 [id number] Start: 12-01-2022 Elctrd Spc Dpth 8 Contct 5 [id number] Start: 12-01-2022 Electrode Depth 12 Contact 5 [id number] Start: 12-01-2022 Elctrd Spc Dpth 8 Contct 5 [id number] Start: 12-01-2022 Depth Electrode [place] 2.5mm X 21mm [id number] Start: 12-01-2022 Elctrd Spc Dpth 8 Contct 5 [id number] Start: 12-01-2022 Depth Electrode [place] 2.5mm X 13mm [id number] Start: 12-01-2022 Elctrd Spc Dpth 8 Contct 5 [id number] Start: 12-01-2022 Electrode Depth 10 Contact 5 [id number] Start: 12-01-2022 Electrode Depth 12 Contact 5 [id number] Start: 12-01-2022 Electrode Depth 10 Contact 5 [id number] Start: 12-01-2022 Electrode Depth 10 Contact 5 [id number] Start: 12-01-2022 Elctrd Spc Dpth 8 Contct 5 [id number] Start: 12-01-2022 Depth Electrode 4 Contact 5 [id number] Start: 12-01-2022 Elctrd Spc Dpth 8 Contct 5 [id number] Start: 12-01-2022 Electrode Depth 10 Contact 5 [id number] Start: 12-01-2022 Elctrd Spc Dpth 8 Contct 5 [id number] Start: 12-01-2022 Electrode Depth 10 Contact 5 [id number] Start: 12-01-2022 Cover 14mm Low P rofile Titanium [place] Tab 1.5mm Screw Nonsterile - [id number] Start: 01-26-2023 Cover 14mm Low P rofile Titanium [place] Tab 1.5mm Screw Nonsterile - [id number] Start: 01-26-2023 Cover 14mm Low P rofile Titanium [place] Tab 1.5mm Screw Nonsterile - [id number] Start: 01-26-2023 Clinical Notes 11-18-2021 to 10-30-2023 Telephone Encounter - Delia Mcfarland PA-C - 10/30/2023 1:19 PM EDTTelephone Encounter - Kathy Wiley - 10/30/2023 1:12 PM EDTChristie Aldana NP - 09/20/2023 3:40 PM ESTPatient Instructions Note Date & Type Note Facility 10-30-2023 Miscellaneous Notes PDMP website checked and validated. All prescriptions have been APPROPRIATELY filled. No suspicious activity was identified. Delia Mcfarland PA-C.October 30, 2023 The following approved medication requests have been transmitted electronically. Requested Prescriptions Signed Prescriptions Disp Refills brivaracetam (BRIVIACT) 100 mg tablet 60 tablet 2 Sig: Take 1 tablet by mouth two times a day for 90 days. Authorizing Provider: DELIA MCFARLAND PA-C Prescription Refill: PT OUT OF MEDS Requested by: patient Please E-Scribe Caller Contact Number: Pharmacy Name: [facility] Pharmacy Number: [phone] Generic/ brand: 30 or 90 day supply requested: 90 Last appointment: 07/24/23 Next Appointment: none Patient of Dr. Marin documented in this encounter [facility] 10-25-2023 Evaluation + Plan note Diagnostic Tests PendingRIP [id number] 10/25/23 [facility] 09-20-2023 History of Present illness Narrative Family Medicine Note Subjective: Chief Complaint: Seizures, anxiety/depression HPI: Virgie Shanks presents to the office today requesting a note for an emotional support animal for her apartment. The patient does have a history of epilepsy as well as anxiety and depression. The patient notes that she has had a worsening in her mood in addition to more frequent seizure like activity since moving away from her animal. Current Outpatient Medications: Briviact 100 MG tablet tablet, Take 100 mg by mouth in the morning and 100 mg before bedtime., Disp: , Rfl: Medical History: No past medical history on file. Allergies: Allergies Allergen Reactions Iodinated Contrast Media Anaphylaxis, Dizziness, Headache, Hives, Itching, Rash and Shortness of breath Zonisamide GI intolerance and Shortness of breath Other Reaction(s): Mental Status Change, Vomiting Blurred/ double vision Numbing in most of body Iodine Morphine Social History: Tobacco Use: Tobacco Use: High Risk (09/20/2023) Patient History Smoking Tobacco Use: Some Days Smokeless Tobacco Use: Never Passive Exposure: Not on file Objective: Vitals: 09/20/23 1542 BP: 122/60 BP Location: Left arm Patient Position: Sitting BP Cuff Size: Adult Pulse: 70 Resp: 16 Temp: 97.7 F TempSrc: Temporal SpO2: 98% Weight: 140 lb 9.6 oz Height: 5' Physical Exam Vitals and nursing note reviewed. Constitutional: Appearance: Normal appearance. She is normal weight. HENT: Head: Normocephalic and atraumatic. Right Ear: External ear normal. Left Ear: External ear normal. Nose: Nose normal. Mouth/Throat: Mouth: Mucous membranes are moist. Eyes: Pupils: Pupils are equal, round, and reactive to light. Cardiovascular: Rate and Rhythm: Normal rate. Pulmonary: Effort: Pulmonary effort is normal. Abdominal: General: Abdomen is flat. Musculoskeletal: General: Normal range of motion. Cervical back: Normal range of motion. Skin: General: Skin is warm and dry. Capillary Refill: Capillary refill takes less than 2 seconds. Neurological: General: No focal deficit present. Mental Status: She is alert and oriented to person, place, and time. Psychiatric: Mood and Affect: Mood normal. Assessment: Diagnoses and all orders for this visit: Other epilepsy without status epilepticus, not intractable (CMS/HCC) Anxiety and depression (CMS/HCC) S/P brain surgery Seizure ([facility]/HCC) Assess/Plan Problem List Items Addressed This Visit Anxiety and depression ([facility]/HCC) Epilepsy ([facility]/HCC) - Primary S/P brain surgery Seizure ([facility]) The patient did present to the office today for a note for an emotional support animal at her apartment. The patient does have a significant medical history of seizures, anxiety and depression. A note was provided for her continued chronic medical conditions. Follow-up: Follow up if symptoms worsen or fail to improve. documented in this encounter [facility] 09-15-2023 Miscellaneous Notes Spoke with patient. She reports being diagnosed with UTI today. I explained this being a trigger for seizures. Recommended she continue with medications, begin the antibiotics and stay hydrated. Call office to report seizures She verbalized understanding Digna Yung RN Please call back to discuss her medication. Patient believes she may have had focal seizures yesterday lasting about 1.5 minutes. She went to the emergency room care. She has a UTI. Patient can be reached at [phone]. General call : Full name of person calling: Virgie Clay Serenamary Relationship to patient: Self Phone # : [phone] Reason for call: Dizzy, unable to get up in the morning. Se[employer] is not working. Possibly having focal seizures Patient of Dr. Marin documented in this encounter [facility] 07-28-2023 Miscellaneous Notes Is it okay for patient to stop taking OXC and just stay on BRV? Digna Ynug RN Okay to continue briviact. She needs to schedule a follow up with Dr. Catarina Vazquez PA-C Would advise she hold OXC today and continue current dose of BRV update office tomorrow to see if symptoms have improved Claudio Vazquez PA-C Please advise patient. Started OXC yesterday Thank you Digna Yung RN documented in this encounter [facility] 07-24-2023 Note [facility] 07-24-2023 History of Present illness Narrative [facility] Patient Name: Virgie Shanks Date of : 2000 ESTABLISHED EPILEPSY CLINIC NOTE 07/24/2023 10:15 AM Reason for Visit: Follow Up Clinical Summary: Ms. Shanks is a 22 year old left-handed female seen in [facility]. We had a visit using: [employer] Virtual Visit I received consent from the patient to perform the visit using this platform. There is no one accompanying the patient during today's visit. I have communicated my name and active licensure. The patient's identity and physical location were verified at the time of this visit. Either the patient or their legal technical sales representative has been informed of the risks and benefits of -- and alternatives to -- treatment through a remote evaluation and consents to proceed with the evaluation remotely. EPILEPSY CLASSIFICATION Right Temporal Lobe Epilepsy Seizures: 1. Visual Aura -> Unclassified Epileptic Seizure 2. Generalized Tonic-Clonic Seizure Etiology: Unknown Associated Conditions: - Psychiatric (Anxiety disorder and Depression) Previous Neurosurgery: Stereo EEG and Cortical resection Cortical resection location: Right temporal Cortical resection date: January 26, 2023 Stereo EEG date: 12/01/2022-12/23/2022. HISTORY OF PRESENT ILLNESS Handedness: left-handed Age of onset: 17 years Interval History She is doing well. She had her epilepsy surgery -right lateral temporal neocortical resection on January 26, 2023 (tailored resection of middle temporal gyrus and both greene of superior temporal sulcus guided by intraoperative ECoG). The surgery was informed by the [facility] evaluation 12/01/2022-12/23/2022. She has not had any seizures since being discharged from [facility]. She is taking Briviact 100mg twice daily. She started taking Vit B6 recently. She is happy with her antiseizure medication. She is experiencing a lot of emotional side effects - depression and uncontrollable crying. She has a lot of rage out of no where - not directed towards at any one or thing. She has seen a mental health provider but it is hard for her see anyone since she can not drive. She is not started on an antidepressant. She has noticed some memory problems. But this may be related to accidentally double dose of Briviact. Her speech is fine. Total # of Current Anti-seizure Medications: 1 Side Effects to Current Anti-seizure Medications: Depressant Seizure Frequency at First Visit: Single seizure Longest Seizure-free Interval: Single seizure Number of seizure types: 2 Hx of generalized tonic-clonic seizures: Yes Tongue bite: No Urine or Bowel Incontinence: No Triggers: None Postictal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 with time. Reports intermittent mild to moderate headaches, right side jaw tightness, and persistent numbness around the incisional area. Reports she is taking tylenol, ibuprofen, and flexeril for the pain. She feels that the flexeril is not working. She was originally taking robaxin but stopped this medication due to nausea. She has not tried the robaxin since the zofran was prescribed. She does jaw stretches when her jaw becomes tight. She denies fever, chills, drainage from incision, AMS/confusion, falls/recent trauma, gait disturbance, nausea/vomiting, vision changes, bowel or bladder incontinence, or focal extremity weakness. She is ambulating well. She has not had any seizures since surgery. ? PLAN: - patient recovering well overall, reassured her that headaches, jaw tightness and sensation changes around incision may persist for a few months but as long as they are gradually improving, this is considered normal - recommend she utilize heating pads on her right jaw to loosen up the muscles, advised that she should stop taking flexeril and restart robaxin as needed with zofran to protect her stomach, she may also continue tylenol and ibuprofen for additional pain control - may gradually ease back into prior activities including exercise, lifting, etc as tolerated - continue ASM regimen and seizure precautions remain in place, f/u with Dr. Marin as directed - return to [facility] in July 2023 for 6 month follow ups with Dr. Marin and Claudio Michaels CNP with MRI brain and EEG - follow up w [facility] neurosurgery office on an as needed basis - all questions and concerns were answered and addressed, patient was agreeable with plan A total of 15 minutes was spent during the visit with greater than 50% of the time spent counseling and coordinating care of the above plan, discussing the following issues: post op recovery,as well as answering the patient's numerous questions. Evaristo Torres PA-C March 09, 2023 11:18 AM documented in this encounter [facility] 02-07-2023 Note [facility] 02-07-2023 Note [facility] 02-07-2023 History of Present illness Narrative The following approved medication requests have been transmitted electronically. Requested Prescriptions Signed Prescriptions Disp Refills cyclobenzaprine (FLEXERIL) 5 mg tablet 60 tablet 0 Sig: Take 1 tablet by mouth three times daily. ondansetron (ZOFRAN) 4 mg tablet 30 tablet 0 Sig: Take 1 tablet by mouth every 8 hours as needed for nausea/vomiting. Evaristo Torres PA-C February 07, 2023 4:06 PM Patient is s/p 01/26/2023: right-sided temporal craniotomy for tailored resection of epileptogenic focus. Sutures removed. Tolerated well. No redness, edema, or drainage noted. Wound care reinforced. Denies fever/chills. Virgie is accompanied by both parents. She is recovering well from surgery. She has mild to moderate intermittent headache/jaw pain that is relieved with tylenol and muscle relaxers. The robaxin makes her nauseous - she requests different muscle relaxer. Advised I will discuss with MAYTE prescribing flexeril and zofran. Advised to not take both muscle relaxers together. Preferred pharmacy on file. She denies seizures, loc, mental status changes or lethargy. She is ambulating well. Speech is clear and coherent. She reports numbness and decreased sensation near incision. Advised this is normal and sensation should continue to return. She has intermittent eye/incisional/facial swelling on right side. Advised this is likely positional as it gets better throughout the day - encouraged to ice, walk and sleep with support. She requests refill of seizure medications. Request forwarded to Dr. Marin team. Melida Martin RN documented in this encounter [facility] 02-07-2023 Miscellaneous Notes Addended by: EVARISTO TORRES on: 02/07/2023 04:06 PM Modules accepted: Orders documented in this encounter [facility] 01-30-2023 Note [facility] 01-30-2023 Note [facility] 01-29-2023 Note [facility] 01-28-2023 Note [facility] 01-27-2023 Note [facility] 01-27-2023 Note [facility] 01-27-2023 Miscellaneous Notes Images from the original note were not included. Noted. No orders or signature needed. Melida Martin RN Received outside medical records from [facility]. Uploaded to y prime. documented in this encounter [facility] 01-26-2023 Note [facility] 01-26-2023 Note [facility] 01-26-2023 Note [facility] 01-26-2023 Note [facility] 01-26-2023 Note [facility] 01-24-2023 Note [facility] 01-24-2023 History of Present illness Narrative Radiology Service Progress Note PATIENT NAME: Virgie Shanks DATE OF SERVICE: January 24, 2023 TIME: 3:03 PM PATIENT IDENTITY VERIFICATION COMPLETED USING TWO (2) IDENTIFIERS: Name and Date of confirmed by patient verbally and Name and Date of confirmed by identification band. FALL SCREENING: Has the patient had 2 falls in the last year or 1 fall with injury or currently using an Ambulatory Assistive Device (Walker, Cane, Wheelchair, Crutches, etc.)? No PATIENT GENDER DATA: Female. status: : No status: NO. PATIENT RELEVANT IMPLANT DATA REVIEWED: Yes RADIOLOGY DEPARTMENT: MR; Exam(s) Completed: Head: Localization PERIPHERAL IV DATA: Not applicable SIGNED BY: RT Anthony(R) January 24, 2023 3:03 PM documented in this encounter [facility] 01-24-2023 Note [facility] 01-24-2023 Note [facility] 01-13-2023 Note [facility] 01-13-[address] Son: 'I reviewed all the images. Looks like all veins are fully compressible except there is partial noncompressibility of the axillary vein with flow in it consistent with partial resolution/recanalization. It is resolving as expected. I advise no more scans are necessary unless she has a new symptom (arm pain, swelling, chest pain, shortness of breath). Virgie has follow up with Dr. Son scheduled for today, 01/13 - results and recommendations will be reviewed with her at this time. Melida Martin RN Reviewed images. Will await report. 2nd serial US available for review. Forwarded to MAYTE. Melida Martin RN Ultrasound of upper extremity Uploaded to y prime documented in this encounter [facility] 01-10-2023 Miscellaneous Notes Spoke to Gertrudis keane - confirmed OR and preop date as previously discussed. Discussed fiducial placement on 01/[address] Dr. David note: right-sided temporal craniotomy for tailored resection of the epileptogenic focus, including the right-sided mid-temporal gyrus and both greene of the superior temporal sulcus (as guided by the recent sEEG findings, as well as planned intra-operative navigation + ECoG). Brainlab, MRI with fiducials, IOM, ECOG. Surgery reservation sent. Melida Martin RN Spoke to Gertrudis keane, discussed timeline of next surgery including preops, inpatient stay and recovery. Tentatively agreed to preop 01/24 with OR 01/26. She would like to complete the VV 01/[address] David to discuss the surgery and check the family schedule prior to confirming. 2nd serial US is being completed today. Melida Martin RN From Dr. Marin office note 01/05: The consensus of the group was that the patient would benefit from a tailored resection of the superior and inferior greene of the right superior temporal sulcus and adjacent middle temporal gyrus as outlined above. The recommendations will be discussed with the patient and her family. Patient management conference recommendation: Resective surgery as described above Patient / family's decision: Agree to proceed per PMC recommendation right neocortical temporal resection +/- intraoperative ECoG Additional testing needed: None Follow up with Dr. David scheduled 01/11. No VNS, no anesthesia for imaging, no depakote or blood thinners, contrast dye allergy - will need to premedicated if imaging needed with contrast. Melida Martin RN documented in this encounter [facility] 01-10-2023 Note [facility] 01-10-2023 History of Present illness Narrative Summary: Virtual Visit Chief Complaint: Refractory epilepsy History of Present Illness: Virgie Shanks is a 22 year old left-handed female with a past medical history of refractory epilepsy, who recently underwent right-sided stereoelectroencephalography (sEEG) for invasive monitoring. Electrodes were implanted on 12/01/2022, and were subsequently removed on 12/23/2022. She is scheduled today (virtually) to discuss the subsequent Patient Management Conference recommendations for resective surgery, in light of her recent sEEG results. Additionally, Virgie remains stable from the standpoint of a recently diagnosed upper extremity DVT. She continues to undergo ultrasound testing (weekly), and this is under review of the Vascular Medicine team here. To date, there is no suggestion for further worsening/progression of the DVT. Of note, this is a virtual video conference appointment today, which was hosted using [employer]. I received consent from the patient to perform the visit using this platform, today. Virgie's parents were both accompanying the patient during today's visit. I communicated my name and active licensure. The patient's identity and physical location were verified at the time of this visit. Either the patient or their legal technical sales representative has been informed of the risks and benefits of -- and alternatives to -- treatment through a remote evaluation and consents to proceed with the evaluation remotely. Objective: LMP 11/06/2022 (Exact Date) General Appearance: no apparent distress, well-developed Neurological: Cognitive: Awake and oriented x3. Cranial nerves: PERRL, EOMI, face symmetric Motor: Moves all extremities bilaterally 5/5, normal muscle tone and bulk Sensation: Intact to light touch. Upper extremities: No worse swelling at the site of DVT. Diagnostic testing Formal work-up by the epileptology team includes the following, per Dr. Marin's notes: Semiology - Complex visual aura, with loss of awareness. EEG - Right temporo-parietal interictal epileptiform discharges. MRI - Right superior temporal sulcus lesion, including the mid temporal gyrus, possibly consistent with fibrosis or dysplasia. Patient Management Conference (PMC): She was discussed in epilepsy management conference. The recommendation made was to proceed to SEEG evaluation with the hypothesis that the epileptogenic zone involving the right superior temporal gyrus/sulcus as well as extent involving either basal temporal and posteriorly to the parietal cortex. 7T-MRI - Slightly asymmetric T2/FLAIR signal along the medial portion of the right temporal lobe. When correlating multiple pulse sequences, there is no clear evidence for structural abnormality. There are small perivascular spaces (12:28) and immediately adjacent to this area the heterogeneous signal associated with the anterior extent of the choroid plexus becomes visible (12:26). No other gross structural abnormalities are identified, and there are no acute changes. No acute intracranial abnormality. 2nd PMC (Post-sEEG discussion), per Dr. Marin's notes: The group agreed that the data provided evidence of seizures arising from the right superior temporal sulcus (posterior) and posterior middle temporal gyrus, based on interictal data and one recorded subclinical seizure. A concern was raised from some members of the group that typical seizure semiology was not captured, but patient was not able to be recorded for a longer period of time secondary to a deep vein thrombosis. 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 Majority including the surgeon agreed that the available findings are concordant with pre-SEEG noninvasive data and a surgical strategy could be formed with the available data. There was discussion regarding the extent of the resection. The group agreed that the right STS posterior (including the superior and inferior greene and adjacent middle temporal gyrus) should be resected including D lateral (the epicenter of the activity recorded on SEEG), F lateral and C lateral regions. Margins of resection would be as follows: (1) Dorsal margin: superior brank of STS and adjacent STG, not including U or J. (2) Ventral margin: Inferior greene of STS and adjacent Middle temporal gyrus- include B, C and F (not L). (3) Posterior extent: posterior to D contact towards Z (not beyond Z) (4) Anterior extent there was some some disagreement- either to extend to A and B lateral or not. Some members suggested that ECOG should be used to determine extension of the resection to include A and B lateral (involved in early onset), although the concern was raised that the interictal frequency was relatively rare and some felt that given their early involvement they should be resected. [...] The consensus of the group was that the patient would benefit from a tailored resection of the superior and inferior greene of the right superior temporal sulcus and adjacent middle temporal gyrus as outlined above. The recommendations will be discussed with the patient and her family. Assessment/Plan: Virgie Shanks is a 22 year old left-handed female with a past medical history of refractory epilepsy, who recently underwent right-sided stereoelectroencephalography (sEEG) for invasive monitoring. Electrodes were implanted on 12/01/2022, and were subsequently removed on 12/23/2022. She is scheduled today (virtually) to discuss the subsequent Patient Management Conference recommendations for resective surgery, in light of her recent sEEG results. She also recently met with Dr. Marin to discuss these results and the surgical plan, last week. Of note, we reviewed today the sEEG results, including the fact that no typical seizure semiology was captured, however there is information acquired from interictal data and one subclinical seizure. Based on the [facility] recommendations forthcoming, a surgical plan was made and encompasses a right-sided temporal craniotomy for tailored resection of the epileptogenic focus, including the right-sided mid-temporal gyrus and both greene of the superior temporal sulcus (as guided by the recent sEEG findings, as well as planned intra-operative navigation + ECoG). The indications, steps, benefits and risks of surgery were outlined for the patient and her parents. The risks were carefully reviewed including, but not limited to, the following: Infection, bleeding/hemorrhage, stroke, neurological deficit (motor, sensory, speech/language, memory, visual, cognitive, etc), recurrent/persistent seizures, CSF leak, hydrocephalus, anesthetic risks and/or . All questions were answered. No guarantees were given. The patient and her family are in agreement and give consent to proceed with the procedure. Thus, we will schedule her surgery accordingly in the next few weeks, with plans for a pre-operative MRI for intra-operative navigation purposes. We will also meet once more in-person to review the details again, and to secure a signed consent. [facility] STAFF PHYSICIAN NOTE OF PERSONAL INVOLVEMENT IN CARE I spent 25 minutes in the visit, with more than 50% of the total [id number] time of the visit in counseling / coordination of care. SIGNATURE: Antonella David MD PhD DATE of SERVICE: January 10, 2023 documented in this encounter [facility] 01-05-2023 Note [facility] 01-04-2023 Note [facility] 01-04-2023 Note [facility] 12-26-2022 Note [facility] 12-26-2022 History of Present illness Narrative Left upper extremity DVT: Diagnosed during her hospitalization on 12/01/2022. Involvement of the left axillary and brachial veins. In the setting of transient risk factor of mid line placement which has not been removed since diagnosis of DVT. PLAN: Due to recent surgery, the patient remains at a high risk of bleeding events. Will recommend obtaining serial duplex scans to evaluate for progression of DVT. Recommend obtaining a bilateral upper extremity duplex scan on 12/28/2022 and 01/04/2023. The patient can follow-up with vascular medicine on an outpatient basis on the day of her last duplex scan. Rodrigo Frye MD Fellow - Vascular Medicine Heart, Vascular and Thoracic [place] [facility] documented in this encounter [facility] 12-26-2022 Miscellaneous Notes Spoke to mom, Gertrudis earlier today. Reports sh will update father on imaging and suture removal. Melida Martin RN New US orders faxed per request for clarification. Melida Martin RN New ultrasound orders placed (one for 12/27 and one for 01/06) Need clarification to see if the order is for the arm or the leg? [facility] # [phone] ORDERS Person requesting order: Brown Shanks Phone number: [phone] Order being requested: Orders for ultrasound on left shoulder area fold a blood clot. Father states the orders that were received at [facility] in [place]. Patient of Dr. David Father also has question about suture removal. documented in this encounter [facility] 12-26-2022 Miscellaneous Notes From 12/24: Per Cha Alcala PA-C: Vascular medicine recommended serial ultrasounds 12/27 and 01/03. Needs coordinated upon discharge. ---- Contacted [facility] - looks about 15 minutes from her house. . [facility] at: [address] [place], [place] [address] Facility would likely be able to accommodate 12/27 and 01/06. Told me Virgie or parent has to schedule. I faxed the orders and facesheet to them so family can call to schedule now. --------- Spoke to Gertrudis - reports Junior is recovering well so far, not having tremendous pain, is up and walking. Advised on suture removal appt 01/04. Reviewed information for [facility] and dates US are recommended. Reported her is attempting to secure the appointments. They do have US scheduled here 01/06 - advised to keep this in case closer dates not available. Melida Martin, RN Right SEEG 19 electrodes. Implant 12/01, explant 12/23. PMC 12/22. Follow up noted with Dr. Marin 01/[address] David 01/10. Will need two week suture removal. Forwarded to scheduling team. Melida Martin RN documented in this encounter [facility] 12-24-2022 Note [facility] 12-24-2022 Note HNO ID: [id number] Author: Interface Note Service: ? Author Type: ? Type: Progress Notes Filed: 12/24/2022 2:10 AM Note Text: Epic Scheduled Downtime: 12/24/2022 1:02:00 AM to 12/24/2022 2:01:00 AM [facility] 12-23-2022 Note [facility] 12-23-2022 Note [facility] 12-23-2022 Note [facility] 12-22-2022 Note [facility] 12-21-2022 Note [facility] 12-21-2022 Note [facility] 12-21-2022 History of Past i llness Narrative Problem Noted Date Resolved Date Swelling in left armpit 12/21/2022 12/23/19 23 UTI (urinary tract infection) 08/28/2022 documented as of this encounter (statuses as of 12/26/2022) [facility] History of Past illness Narrative* Problem Noted Date Resolved Date Swelling in left armpit 12/21/2022 12/23/19 23 UTI (urinary tract infection) 08/28/2022 documented as of this encounter (statuses as of 12/26/2022) [facility] History of Past illness Narrative* Problem Noted Date Resolved Date Swelling in left armpit 12/21/2022 12/23/19 23 UTI (urinary tract infection) 08/28/2022 documented as of this encounter (statuses as of 12/27/2022) [facility] History of Past illness Narrative* Problem Noted Date Resolved Date Swelling in left armpit 12/21/2022 12/23/19 23 UTI (urinary tract infection) 08/28/2022 documented as of this encounter (statuses as of 01/10/2023) [address]10-2023 History of Past illness Narrative* Problem Noted Date Resolved Date Swelling in left armpit 12/21/2022 12/23/19 23 UTI (urinary tract infection) 08/28/2022 documented as of this encounter (statuses as of 01/11/2023) [address]-2023 History of Past illness Narrative* Problem Noted Date Resolved Date Swelling in left armpit 12/21/2022 12/23/19 23 UTI (urinary tract infection) 08/28/2022 documented as of this encounter (statuses as of 01/11/2023) [address]-2023 History of Past illness Narrative* Problem Noted Date Resolved Date Swelling in left armpit 12/21/2022 12/23/19 23 UTI (urinary tract infection) 08/28/2022 documented as of this encounter (statuses as of 01/13/2023) [address]-2023 History of Past illness Narrative* Problem Noted Date Resolved Date Swelling in left armpit 12/21/2022 12/23/19 23 UTI (urinary tract infection) 08/28/2022 documented as of this encounter (statuses as of 01/25/2023) [facility] History of Past illness Narrative* Problem Noted Date Resolved Date Swelling in left armpit 12/21/2022 12/23/19 23 UTI (urinary tract infection) 08/28/2022 documented as of this encounter (statuses as of 01/27/2023) [facility] History of Past illness Narrative* Problem Noted Date Resolved Date Swelling in left armpit 12/21/2022 12/23/19 23 UTI (urinary tract infection) 08/28/2022 documented as of this encounter (statuses as of 02/08/2023) [address]-2023 History of Past illness Narrative* Problem Noted Date Diagnosed Date Resolved Date Swelling in left armpit 12/21/202212/12 UTI (urinary tract infection) 08/28/2022 11/22/2022 documented as of this encounter (statuses as of 03/09/2023) [address]-2023 History of Past illness Narrative* Problem Noted Date Diagnosed Date Resolved Date Swelling in left armpit 12/21/202212/12 UTI (urinary tract infection) 08/28/2022 11/22/2022 documented as of this encounter (statuses as of 03/10/2023) [address]-2023 History of Past illness Narrative* Problem Noted Date Diagnosed Date Resolved Date Swelling in left armpit 12/21/202212/12 UTI (urinary tract infection) 08/28/2022 11/22/2022 documented as of this encounter (statuses as of 03/21/2023) [address]-2023 History of Past illness Narrative* Problem Noted Date Diagnosed Date Resolved Date Swelling in left armpit 12/21/202212/12 UTI (urinary tract infection) 08/28/2022 11/22/2022 documented as of this encounter (statuses as of 04/21/2023) [address]-2023 History of Past illness Narrative* Problem Noted Date Diagnosed Date Resolved Date Swelling in left armpit 12/21/202212/12 UTI (urinary tract infection) 08/28/2022 11/22/2022 documented as of this encounter (statuses as of 06/01/2023) [address]-2023 History of Past illness Narrative* Problem Noted Date Diagnosed Date Resolved Date Swelling in left armpit 12/21/202212/12 UTI (urinary tract infection) 08/28/2022 11/22/2022 documented as of this encounter (statuses as of 07/21/2023) [address]23 History of Past illness Narrative* Problem Noted Date Diagnosed Date Resolved Date Swelling in left armpit 12/21/202212/12 UTI (urinary tract infection) 08/28/2022 11/22/2022 documented as of this encounter (statuses as of 07/21/2023) [place] [address]-10-2023 History of Past illness Narrative* Problem Noted Date Diagnosed Date Resolved Date Swelling in left armpit 12/21/202212/12 UTI (urinary tract infection) 08/28/2022 11/22/2022 documented as of this encounter (statuses as of 07/22/2023) [facility] History of Past illness Narrative* Problem Noted Date Diagnosed Date Resolved Date Swelling in left armpit 12/21/202212/12 UTI (urinary tract infection) 08/28/2022 11/22/2022 documented as of this encounter (statuses as of 07/24/2023) [facility] History of Past illness Narrative* Problem Noted Date Diagnosed Date Resolved Date Swelling in left armpit 12/21/202212/12 UTI (urinary tract infection) 08/28/2022 11/22/2022 documented as of this encounter (statuses as of 07/29/2023) [facility] History of Past illness Narrative* Problem Noted Date Diagnosed Date Resolved Date Swelling in left armpit 12/21/202212/12 UTI (urinary tract infection) 08/28/2022 11/22/2022 documented as of this encounter (statuses as of 09/15/2023) [facility] History of Past illness Narrative* Problem Noted Date Diagnosed Date Resolved Date Swelling in left armpit 12/21/202212/12 UTI (urinary tract infection) 08/28/2022 11/22/2022 documented as of this encounter (statuses as of 10/30/2023) [facility] History of Past illness Narrative* Problem Noted Date Diagnosed Date Resolved Date Swelling in left armpit 12/21/202212/12 UTI (urinary tract infection) 08/28/2022 11/22/2022 documented as of this encounter (statuses as of 10/31/2023) [facility] History of Present illness Narrative* Tomas Morrison MD - 12/21/2022 10:31 AM EDT Patient/Research Subject Name: Virgie Shanks : 2000 IRB . Spatiotemporal Analysis of Neuronal Networks for Human Memory and Language in Adults Environmental Laboratory Technician: Alberto Todd MD Co-Biopsychologist: Tomas Morrison MD [phone] Inclusion criteria: 1) Age >= 18 yrs old 2) Receiving implanted electrodes (phase II monitoring) 3) Can perform the computerized testing Exclusion criteria: 1) Unable to perform the cognitive task 2) Requires a guardian or legally authorized technical sales representative Based on my review of the patient on 12/08/2022, at 830 am, Virgie Shanks meets all inclusion criteria and does not meet any exclusion criteria. Virgie Shanks IS eligible for the IRB study. Tomas Morrison MD [facility] History of Past illness Narrative* Problem Noted Date Resolved Date Arm DVT (deep venous thromboembolism), acute 04/202312/20/2022 UTI (urinary tract infection) 08/28/2022 documented as of this encounter (statuses as of 12/21/2022) [facility] Miscellaneous Notes* Addendum Note - Evaristo Torres PA-C - 11/23/2022 8:23 AM EDTAddended by: EVARISTO TORRES on: 11/23/2022 08:23 AM Modules accepted: Orders * Telephone Encounter - Evaristo Torers PA-C - 11/23/2022 8:22 AM EDT The following approved medication requests have been transmitted electronically. Requested Prescriptions Signed Prescriptions Disp Refills mupirocin (BACTROBAN) 2 % ointment 22 g 0 Sig: Apply small amount of ointment to each nostril using cotton swab twice daily leading up to surgery (starting 11/26) and then once the morning of surgery on 12/01 Authorizing Provider: EVARISTO TORRES PA-C November 23, 2022 8:22 AM Bactroban ointment sent to home pharmacy. * Telephone Encounter - Melida Martin RN - 11/23/2022 8:12 AM EDT Pt positive for staph on nasal swab from 11/22. OR for 12/01. ------ Spoke to Gertrudis keane - advised on positive swab and bactroban treatment. Verbalized understanding.Preferred pharmacy on file. Forwarded to MAYTE for prescription. Melida Martin RN [facility] History of Present illness Narrative* Melida Martin RN - 11/22/2022 2:51 PM EDT Nurse visit for preoperative education. Plan of care and inpatient/outpatient teams discussed. Post operative restrictions and follow up care and timeline discussed. Surgical binder given to patient - instructions provided. All questions answered. Melida Martin RN [facility] History and physical note * Neeru Brito PA-C - 11/22/2022 12:50 PM EDT Surgeon: Antonella David MD Type of surgery: STEREOTACTIC IMPLANT OF DEPTH ELECTRODES INTO CEREBRUM FOR SEIZURE MONITORING, STEREOTACTIC COMPUTER-ASSISTED NAVIGATIONAL PROCEDURE INTRADURAL Patient scheduled for surgery on 12/01/2022 Surgery Location: [facility] Diagnosis: Pre-op evaluation (primary encounter diagnosis) BP 101/52 Pulse 57 Temp (Src) 98.2 (Temporal) Ht 5' 0 (1.52m) Wt 129 lb (58.5kg) SpO2 99% LMP 11/06/2022 BMI 25.19 kg/(m^2). H&P completed on 11/22/[address] Vaca Denies recent fever, chills, illness, pneumonia, chest pain or shortness of breath. Patient denies any changes in health or any new symptoms since visit with provider. ACTIVE PROBLEM LIST Partial Symptomatic Epilepsy With Complex Partial Seizures, Not Intractable, Without Status Epilepticus (Hcc) Anxiety and Depression Seizure (Hcc) PAST MEDICAL HISTORY Diagnosis Date Anxiety and depression 08/26/2022 Family history of seizure disorder her brother and his maternal grand aunt. Partial symptomatic epilepsy with complex partial seizures, not intractable, without status epilepticus (HCC) 07/11/2022 Social History Tobacco Use Smoking status: Never Smokeless tobacco: Never Substance Use Topics Alcohol use: No Drug use: No brivaracetam (BRIVIACT) 100 mg tablet Take 1 tablet by mouth twice daily for 30 days. lacosamide (VIMPAT) 100 mg tab Take 100mg in the morning and 200mg in the evening for 2 days then decrease to 100mg twice a day (Patient not taking: Reported on 11/22/2022) ALLERGIES Allergen Reactions Zonisamide Mental Status Change, GI Upset, Vomiting, Shortness of Breath Blurred/ double vision Numbing in most of body Iodinated Contrast * Hives, Itching Morphine Intolerance Head COVID VACCINATION STATUS: Not vaccinated, prior infection PHYSICAL EXAMINATION: Alert and oriented, No acute distress, Healthy appearance Lungs clear to auscultation. No wheezing, rhonchi, rales. RRR without murmur, gallop, or rubs. No ectopy Laboratory and Testing: Lab Value Units Date High Low HB 12.2 g/dL 10/03/2022 15.5 11.5 HCT 36.2 % 10/03/2022 46.0 36.0 WBC 7.80 k/uL 10/03/2022 11.00 3.70 PLT 195 k/uL 10/03/2022 400 150 NA 138 mmol/L 10/03/2022 144 136 K 3.8 mmol/L 10/03/2022 5.1 3.7 GLUC 122 mg/dL 10/03/2022 99 74 BUN 10 mg/dL 10/03/2022 21 7 CREAT 0.76 mg/dL 10/03/2022 0.96 0.58 PTSEC 10.9 sec 10/03/2022 13.0 9.7 INR 1.1 no uni* 10/03/2022 1.3 0.9 APTT 26.2 sec 10/03/2022 32.4 23.0 ALT 13 U/L 10/03/2022 38 7 AST 17 U/L 10/03/2022 35 13 TBILI 0.2 mg/dL 10/03/2022 1.3 0.2 TSH 1.210 mIU/L 10/03/2022 4.300 0.510 Lab Value Units Date High Low HCGQT No results within date range. UHCG No results within date range. HCG, BODY* No results within date range. Lab Value Units Date High Low ABORHD No results within date range. ABSCREEN No results within date range. No results found for: HBA1C Recent Results (from the past 8760 hour(s)) ECG COMPLETE Collection Time: 11/22/22 11:28 AM Result Value Ventricular Rate 65 Atrial Rate 65 P-R Interval 118 QRS Duration 82 QT Interval 402 QTC Calculation (Bazett) 418 Calculated P [place] 55 Calculated R [place] 82 Calculated T [place] 67 Impression SINUS RHYTHM WITH MARKED SINUS ARRHYTHMIA OTHERWISE NORMAL ECG Recent Results (from the past 87201 hour(s)) ECHO Collection Time: 04/27/22 11:15 AM Impression CONCLUSIONS: - Exam indication: Palpitations - The left ventricle is normal in size. Left ventricular systolic function is normal. EF = 68 5% (2D biplane) - The right ventricle is normal in size. Right ventricular systolic function is normal. - No significant valvular abnormalities. - The patient has not had a prior CC echocardiographic exam for comparison. * * * Final * * * Holter Monitor (Zio Patch) 04/07/2022 - 04/13/2022: Predominant rhythm is sinus. Rare PAC and PVC. METS: Climb a flight of stairs or walk up a hill (5.50 METs) Patient denies any chest pain or undue shortness of breath with the above physical activity. STOP BANG Score: Criteria: None Score = 0 ANESTHESIOLOGY REVIEW: MOUTH OPENING/TMJ : Full jaw ROM MICROGNATHIA/OVERBITE: no MP SCORE: MP 2 UPPER LIP BITE TEST: Class I - Lower incisors can bite the upper lip above the roger line DENTITION: chipped front upper tooth and left upper incisor chipped THYROMENTAL DIST: WNL SHORT NECK: No NECK FLEX: Full ROM NECK EXTENSION: Full ROM INTUBATION HISTORY: history of general anesthesia without difficulty ADVERSE ANESTHESIA EVENT: no history of adverse event ANESTHETIC OPTIONS: Final anesthesia management options will be discussed on day of surgery. PAIN MANAGEMENT OPTIONS: Final pain management plan will be discussed on the day of surgery. OPTIMIZATION STATUS: Patient optimization pending labs Cardiac Clearance with Dr. Vaca 11/22/22 Ms. Shanks is a 22 year old female with history of epilepsy being evaluated for possible epilepsysurgery presenting to cardiology clinic for preoperative evaluation. Patient denies any exertional symptoms and has an excellent functional capacity. She has no significant prior cardiovascular history or risk factors. She had a normal Echo and event monitor last year. Today denies any symptoms or concerns from a cardiovascular standpoint, and she has a completely normal cardiovascular exam, her EKG shows sinus bradycardia with sinus arrhythmias and no concerning findings. Overall she is low risk for surgery and can proceed with no further cardiovascular work-up. PLAN AND RECOMMENDATIONS: - Proceed with planned intervention without further cardiovascular testing - No indication to follow-up with cardiology or to repeat cardiovascular preoperative testing unless a change in clinical status concerning for cardiovascular disease. ASA Class: 2 Neeru Brito PA-C November 22, 2022 11:48 AM documented in this encounterSumma Health [facility] Campus04-11-2023 Instructions* Patient Instructions* Neeru Brito PA-C - 11/22/2022 12:47 PM EDT PATIENT PREOPERATIVE INSTRUCTIONS Antonella David MD has scheduled you for your procedure at this surgery center: [facility] [place] [facility] Scheduling Office: [phone] --[address] [place] [address]. Please read below carefully for your personalized instructions. Dietary Restrictions: - No solid food after midnight. - You may have 12 ounces of clear liquids (water, clear juices such as apple juice or gatorade, carbonated beverages, clear tea, black coffee, jello) until 2 hours before scheduled arrival at facility. Is Patient Diabetic:No Medications: Unless instructed differently below, stay on all of your medications until your surgery. Approved medications to take the morning of surgery with a sip of water: Briviact If you start any new medications after today's visit, please contact the surgeon's office. Blood Thinning Medications: - Stop NSAIDS (Ibuprofen, Advil, Aleve, Motrin, Celebrex, Mobic, etc.) 7 days before surgery, as directed by your surgeon. - Stop Aspirin 7 days before surgery, as directed by your surgeon. - Stop Vitamin E, ALL multi-vitamins, herbals and dietary supplements 7 days before surgery. - You may take Tylenol (Acetaminophen) or any of your pain medications that do not contain aspirin or NSAIDS as needed. Important Reminders: - Candy, mints, and tobacco products are NOT permitted the morning of surgery. - Hearing aids, dentures and glasses may be worn the morning of surgery. - NO jewelry, body piercings, makeup, hairpins or contacts are to be worn the day of surgery. If you develop symptoms such as a fever, cold, or flu, or have other changes to your health within TWO DAYS of scheduled surgery or the morning of surgery, please contact the surgery center above. Personal Belongings: -Please have photo ID and insurance cards. -If you do not have a copy of advance directives on file with us, please bring a copy with you on the day of surgery. - Leave ALL valuables and money at home or with family members. Arrival Time for Surgery: - To obtain your arrival time for surgery, call your physician's office the day before your surgery. - If your surgery is scheduled for Monday, call the Monday before. Your surgeon s lump roller will tell you what time to call the office. - If you have not reached the departmental lump roller by 5 P.M., call [phone] after 5 P.M. the day before your surgery. Please be aware that emergency situations arise, which may delay or change your surgical time. If this happens, we will notify you as soon as possible and regret any inconvenience. If you already have an Advance Directive, please fax a copy to [phone] or email to for it to be added to your chart. If you do not have an Advance Directive, you can find the appropriate form and more information at [email or web address]. We recommend that youcomplete the Advance Directive form found on the website and bring it with you the day of your surgery. It can be witnessed and scanned into your chart that day. For any further questions regarding your anesthetic care, please contact [phone] Neeru Brito PA-C documented in this encounterSumma Health Akron [facility]04-11-2023 Note[facility]-2023 Note[facility]-2023 Note[facility]-2023 Note[facility]-11-2023 History of Present illness Narrative* Barbara Carrillo RN - 11/22/2022 10:30 AM EDT Radiology Service Progress Note DATE OF SERVICE: November 22, 2022 TIME: 10:11 AM PATIENT WEIGHT: 125LBS PATIENT IDENTITY VERIFICATION COMPLETED USING TWO (2) STANDARD IDENTIFIERS: Name and Date of confirmed by patient verbally. FALL SCREENING: Has the patient had 2 falls in the last year or 1 fall with injury or currently using an Ambulatory Assistive Device (Walker, Cane, Wheelchair, Crutches, etc.)? No PATIENT GENDER DATA: Female. status: : No status: NO. ALLERGIES: Reviewed and unchanged CONTRAST ALLERGY: Yes STANDARD PREMEDICATION: Prednisone 50mg Dose 1 taken at 202911/21/22, Dose 2 at 0230, and Dose 3 at 0830 Benadryl 50mg 0830 EXAM: CT -CONTRAST INDUCED NEPHROPATHY RISK FACTORS: Not applicable CREATININE: Creatinine Date Value Ref Range Status 10/03/2022 0.76 0.58 - 0.96 mg/dL Final 08/26/2022 1.02 (H) 0.58 - 0.96 mg/dL Final 10/22/2016 Account Credited 0.58 - 0.96 mg/dL Final Comment: Requisitioning entry error ORDERED INCORRECTLY AND CORRECTED 10/22/2016 0.74 0.58 - 0.96 mg/dL Final Estimated Glomerular Filtration Rate Date Value Ref Range Status 10/03/2022 116 >=60 mL/min/1.73m Final Comment: Estimated Glomerular Filtration Rate (eGFR) is calculated using the 2020 CKD-EPI creatinine equation. This equation utilizes serum creatinine, sex, and age as parameters. The creatinine assay has traceable calibration to isotope dilution- mass spectrometry. Refer to KDIGO guidelines for clinical interpretation. In patients with unstable renal function, e.g. those with acute kidney injury, the eGFRmay not accurately reflect actual GFR. Glom Filtration Rate (AA) Date Value Ref Range Status 10/22/2016 Account Credited Final Comment: Requisitioning entry error ORDERED INCORRECTLY AND CORRECTED P.O.C.T. RESULTS: N/A November 22, 2022 TREATMENT: N/A IV SITE: Ambulatory: A peripheral IV was started in the Left antecubital site with a Angio cath: 20gauge. Inserted prior to this CT scan in MRI. IV SITE APPEARANCE: Clean,Dry and Intact SIGNATURE: Barbara Carrillo RN PATIENT NAME: Virgie Shanks DATE: November 22, 2022 TIME: 10:11 AM * RT Kirsty(R) - 11/22/2022 10:30 AM EDT Radiology Service Progress Note PATIENT NAME: Virgie Shanks DATE OF SERVICE: November 22, 2022 TIME: 10:19 AM PATIENT IDENTITY VERIFICATION COMPLETED USING TWO (2) IDENTIFIERS: Name and Date of confirmedby patient verbally and Name and Date of confirmed by identification band. FALL SCREENING: Has the patient had 2 falls in the last year or 1 fall with injury or currently using an Ambulatory Assistive Device (Walker, Cane, Wheelchair, Crutches, etc.)? No PATIENT GENDER DATA: Female. status: : No status: NO. PATIENT RELEVANT IMPLANT DATA REVIEWED: Yes RADIOLOGY DEPARTMENT: CT; Exam(s) Completed: CTA Brain PERIPHERAL IV DATA: Site assessment: Clean,Dry and Intact, Site disposition Left in for next appointment pre med SIGNED BY: RT Kirsty(R) November 22, 2022 10:19 AM * Barbara Carrillo RN - 11/22/2022 10:30 AM EDT RADIOLOGY SERVICE PROGRESS NOTE DATE OF SERVICE: November 22, 2022 TIME OF SERVICE: 1045 EVENT: CONTRAST REACTION Premedicated: Yes, Prednisone at 13 hours, 7 hours, 1 hour with Benadryl at 1 hour Type of Contrast: Omnipaque 350 and amount given 80ml. Clinical Symptoms: Feeling faint/dizzy, confused and per patient chest stomach feel crampy. Physician Notified: Dr. Hairston radiologist , came to assess patient. Treatment: Rapid Response Team notified, Observation, Medication given Benadryl 50mg IVP. VSS, taken q15 min. 1047 125/70, 100% RA, 65 HR 1100 116/61, 100% RA, 94 HR 1110 152/75, 100% RA, 94 HR 1112 150/78, 100% RA, 95HR 1116 154/87, 100% RA, 102HR 1124 143/78, 100% RA, 94HR ADDITIONAL EVENT DETAILS: AMET called @1110. AMET at bedside 1115 evaluating patient. Mom called tobedside. Decision made by patient and family to continue to next appointment. Patient escorted off unit in wheelchair by RN and family. SIGNATURE: Barbara Carrillo RN PATIENT NAME: Virgie Shanks DATE: November 22, 2022 TIME: 11:26 AM PAGER/CONTACT #: documented in this encounterSumma Health Akron Campus04-11-2023 NoteSelect [facility]04-11-2023 History of Present illness Narrative* Emy Magana RN - 11/22/2022 9:40 AM EDT Radiology Service Progress Note DATE OF SERVICE: November 22, 2022 TIME: 8:58 AM PATIENT WEIGHT: 125LBS PATIENT IDENTITY VERIFICATION COMPLETED USING TWO (2) STANDARD IDENTIFIERS: Name and Date of confirmed by patient verbally and Name and Date of confirmed by identification band. FALL SCREENING: Has the patient had 2 falls in the last year or 1 fall with injury or currently using an Ambulatory Assistive Device (Walker, Cane, Wheelchair, Crutches, etc.)? No PATIENT GENDER DATA: Female. status: : No status: NO. ALLERGIES: Reviewed and unchanged CONTRAST ALLERGY: No EXAM: MRI - CONTRAST TYPE: GROUP II IV SITE: Ambulatory: A peripheral IV was started in the Left antecubital site with a Angio cath: 20gauge. and A Saline lock was inserted per protocol IV SITE APPEARANCE: Clean,Dry and Intact SIGNATURE: Emy Magana RN PATIENT NAME: Virgie Lyonsmary DATE: November 22, 2022 TIME: 8:58 AM documented in this encounterSumma Health Akron Campus04-11-2023 History of Present illness Narrative* Christiano Vaca MD - 11/22/2022 8:00 AM EDT Images from the original note were not included. [facility] [place] [facility] Department of Cardiovascular Medicine SECTION OF CLINICAL CARDIOLOGY OUTPATIENT VISIT DATE November 22, 2022 OUTPATIENT VISIT TYPE CONSULTATION PRIMARY CARE PHYSICIAN: eRmi Andrew [address] [place] [address] REFERRING PHYSICIAN Evaristo Torres [address] [facility] [id number] CHIEF COMPLAINT: No chief complaint on file. HISTORY OF PRESENT ILLNESS: Cardiac consultation at the request of Dr. Evaristo Torres. A copy of this consultation note will be provided to the requesting physician by way of shared Medical record or letter to requesting physician via US mail. Ms. Shanks is a 22 year old female who is seen today for preoperative evaluation. 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 She is planned for sEEG 12/01/2022 and possibly epilepsy surgery afterwards. Her last seizure was 10/02/2022 (8 partial seizures). She was seen in cardiology clinic by Dr. Galvez 04/07/2022 for while she was on lamotrigine. She had an Echo that ruled out structural or functional abnormalities, and Zio patch that was worn for 1 week without any arrhythmias detected. Since then she has been taken off lamotrigine since then and she no longer experiences any palpitations. Today she reports feeling well with no symptoms or concerns. She is exercising regularly by going to the gym and doing steps for 15 minutes, Treadmill with incline (4 m/hr incline 13 inches) for 30 minutes, abs work-out for about 30 minutes. No Chest pain, no SOB, no lightheadedness, no syncope or presyncope. No leg swelling, no orthopnea, no PNDs, no leg swelling. Palpitations resolved. ROS is otherwise negative PAST CARDIAC HISTORY: None PAST MEDICAL HISTORY Diagnosis Date Anxiety and depression 08/26/2022 Family history of seizure disorder her brother and his maternal grand aunt. Partial symptomatic epilepsy with complex partial seizures, not intractable, without status epilepticus ([facility]) 07/11/2022 No past surgical history on file. SOCIAL HISTORY Social History Tobacco Use Smoking status: Never Smokeless tobacco: Never Substance Use Topics Alcohol use: No Drug use: No Family History: FAMILY HISTORY Problem Relation Age of Onset other (bundle branch block) Maternal Grandmother Ischemic Heart Disease Maternal Grandfather Heart Failure Paternal Grandfather other (ventricular tachycardia) Paternal Grandfather ALLERGIES: ALLERGIES Allergen Reactions Zonisamide Mental Status Change, GI Upset, Vomiting, Shortness of Breath Blurred/ double vision Numbing in most of body Iodinated Contrast * Hives, Itching Morphine Intolerance Head MEDICATIONS: predniSONE (DELTASONE) 50 mg Take 1 tablet by mouth @ 8:30 PM on 11/21, 1 tablet @ 2:30 AM on 11/22, and 1 tablet @ 8:30 AM on 11/22 prior to MRI diphenhydrAMINE (BENADRYL) 50 mg capsule Take 1 tablet by mouth at 08:30 AM on 11/22 prior to MRI lacosamide (VIMPAT) 100 mg tab Take 100mg in the morning and 200mg in the evening for 2 days then decrease to 100mg twice a day brivaracetam (BRIVIACT) 100 mg tablet Take 1 tablet by mouth twice daily for 30 days. folic acid 1 mg tablet Take 2 tablets by mouth once daily. REVIEW OF SYSTEMS: GENERAL: Negative for: Weight loss or gain, Fever or Chills, Weakness and Sleep difficulties. HEENT: Negative for: Headache, Impaired Vision, Glasses, Hearing Impairment, Ringing in Ears, Nosebleeds, Poor dental care, Bleeding Gums, Dentures NECK: Negative for: Swelling, Pain, Stiffness RESPIRATORY: Negative for: Cough, Blood in Sputum, Shortness of breath, Wheezing, Apnea GASTROINTESTINAL: Negative for: Trouble swallowing, Heartburn, Change in bowel habits, Blood in stool, Dark black stools MUSCULOSKELETAL: Negative for: Muscle or joint pain, Stiffness , Joint swelling NEUROLOGIC/PSYCHIATRIC: Negative for: Weakness, Paralysis, Numbness, Tingling, Tremor, Nervousness,Depressed mood, Memory loss SKIN: Negative for: Rashes, Itching HEMATOLOGICAL/LYMPHATIC: Negative for: Easy bruising , Easy bleeding ENDOCRINE: Negative for: Heat or cold intolerance, Excessive sweating, Frequent urination, Frequentthirst PHYSICAL EXAMINATION: [facility] 10/08/2016 (Exact Date) General: Well appearing, in no acute distress. Skin: No clubbing, no cyanosis. Eyes: Extra ocular movements intact Oropharynx: Teeth in good repair. Neck: No jugular venous distention, no carotid bruits, carotids have a normal upstroke, no palpablethyromegaly. Lungs: Clear to auscultation bilaterally, no wheezing or rhonchi. Heart: Regular rhythm, PMI not displaced, S1, S2 normal, no S3, no S4, no heaves, no rub and no murmur. Abdomen: Soft, nontender, bowel sounds normal, no palpable organomegaly, no bruits. Extremities: No peripheral edema . Grade 2/4 distal pulses bilaterally. Neuro: Oriented to person, place and time, alert, cooperative, gait coordinated. CARDIOVASCULAR MEDICINE TESTING: Holter Monitor (Zio Patch) 04/07/2022 - 04/13/2022: Predominant rhythm is sinus. Rare PAC and PVC. Last ECHO Result Conclusion ECHO Collected: 04/27/2022 11:15 AM (Final result) Impression: CONCLUSIONS: - Exam indication: Palpitations - The left ventricle is normal in size. Left ventricular systolic function is normal. EF = 68 5% (2D biplane) - The right ventricle is normal in size. Right ventricular systolic function is normal. - No significant valvular abnormalities. - The patient has not had a prior CC echocardiographic exam for comparison. * * * Final * * * Last EKG Result Conclusion ECG COMPLETE Collected: 11/22/2022 7:32 AM (Preliminary result) Impression: SINUS BRADYCARDIA WITH SINUS ARRHYTHMIA OTHERWISE NORMAL ECG I have personally reviewed the Electrocardiogram and Echocardiogram. IMPRESSION: Ms. Shanks is a 22 year old female with history of epilepsy being evaluated for possible epilepsy surgery presenting to cardiology clinic for preoperative evaluation. Patient denies any exertional symptoms and has an excellent functional capacity. She has no significant prior cardiovascular history or risk factors. She had a normal Echo and event monitor last year. Today denies any symptoms or concerns from a cardiovascular standpoint, and she has a completely normal cardiovascular exam, her EKG shows sinus bradycardia with sinus arrhythmias and no concerning findings. Overall she is low risk for surgery and can proceed with no further cardiovascular work-up. PLAN AND RECOMMENDATIONS: - Proceed with planned intervention without need for further cardiovascular testing - No indication to follow-up with cardiology or to repeat cardiovascular preoperative testing unless a change in clinical status concerning for cardiovascular disease. Daniel Delaney MD Internal Medicine Resident PGY-2 11/22/2022 8:31 AM I personally interviewed, confirmed and edited the above information as obtained by others. The patient has no significant cardiovascular issues that should impact evaluation and treatment ofher primary epilepsy related issues. Her resting EKG is WNL and her echo shows no evidence of any significant structural heart issues, CONTACT INFORMATION: Esteban Vaca MD, [facility], [facility] Department of Cardiovascular Medicine [facility] [place] [facility] Desk [address] [place] [address] Office - [phone] extension [phone] Office Appointments: [phone] extension [phone] documented in this encounterSumma Health Akron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 75-75 Week 9 250-500 75-100 Week 10 250-250 100-100 Week 11 250-250 100-125 Week 12 0-250 125-125 Week 13 0-250 125-150 Week 14 Stop 150-150 Continue LAMICTAL TITRATION: Watch for any new skin rash, skin blisters, redness/blistering in lips or around eyes. Call us and notify in case of these adverse effects. You should be seen by a doctor if you notice these changes. If determined to be medication induced, you may need an alternate medicine. The possibility of serious and adverse reactions were discussed in detail as well as proper use of medication. I discussed that not taking this medication as directed could worsen seizures and can bedangerous. I discussed the risks, benefits and alternatives of the medical plan with the patient. Questions were answered. The patient agreed with the plan as discussed. FOLLOW-UP: Return in about 3 months (around 03/24/2022). I spent a total of 60 minutes on the date of the service which included: preparing to see the patient [id number] patient care completing clinical documentation obtaining and/or reviewing separately obtained history performing a medically appropriate examination counseling and educating the patient/family/caregiver ordering medications, tests, or procedures communicating with other HCPs (not separately reported) Robert Marin MD cc: Primary Care Physician: Remi Andrew MD [address] [facility] [id number] Referring: Harris López [address] [facility] [address] Patient: Ms. Virgie Shanks [address] [facility] [address] documented in this encounterSumma Health Akron Campus05-11-2022 Instructions* Patient Instructions* Robert Marin MD - 12/22/2021 11:38 AM EDT Keppra Lamictal (AM-PM) (AM-PM) Week 1&2 500-500 0-25 Week 3&4 500-500 25-25 Week 5 500-500 25-50 Week 6 500-500 50-50 Week 7 500-500 50-75 Week 8 5250-500 75-75 Week 9 250-500 75-100 Week 10 250-250 100-100 Week 11 250-250 100-125 Week 12 0-250 125-125 Week 13 0-250 125-150 Week 14 Stop 150-150 Continue LAMICTAL TITRATION: Watch for any new skin rash, skin blisters, redness/blistering in lips or around eyes. Call us and notify in case of these adverse effects. You should be seen by a doctor if you notice these changes. If determined to be medication induced, you may need an alternate medicine. Please attend to the following issues: as it relates to anticonvulsant medications epilepsy, Oral contraceptive pills as it relates to anticonvulsant medications, Avoid alcohol, Avoid sleep deprivation, Sleep Hygiene, Test results, Further testing required, Risks related to continued seizures and No bathing, no swimming unsupervised, no use of heavy machinery, no use of sharp moving objects, avoid heights, and risks related to continued seizures Insomnia can be treated with cognitive behavioral therapy which can be tried with various APPs on [email or web address] phone. You can try CBT-I job coach or Jennifer. documented in this encounterSumma Health [facility] Campus05-11-2022 Nurse Note* Reanna Green MA - 12/22/2021 10:19 AM EDT Pt's pulse was low both times I took b/p. Reanna Green CCMA documented in this encounterSumma Health Akron Campus04-07-2022 History of Present illness Narrative* Sandrine Farris PA-C - 11/18/2021 1:31 PM EDT [facility] of Records Patient: Virgie Shanks Address: [address] [place] [address] Impression: Review of records for Virgie Shanks, a 21 year old female, being referred by SELF to ANY epileptologist for further evaluation and treatment. Patient has previously diagnosed seizure . No prior EEG or MRI to review, CT brain done after single seizure was unremarkable. Patient has trialed 1 AEDs. Summar y: Onset: 11/11/2021 Recent Seizure Frequency: 1st and only episode Seizure Description(s) Available: Type A: Occurred out of sleep, convulsions, foaming at the mouth Duration: 2-3 minute Current AED(s): LEV -> started 11/11 in the ED for seizure Previous AED(s): None PMH: N/A PRIOR EVALUATIONS: CT brain WO contrast ([facility], 11/12/21): No evidence of acute disease EEG: Never completed MRI brain wo/w contrast: Never completed MAYTE Recommendations: - Visit with epileptologist and same day long EEG - Additional testing to be considered by epilepsy clinicians Signed: Radha Cotter APRN.LEVEL VIAL SETTER November 18, [address] López for review and recommendations. MD Recommendations (as discussed with Dr. López): - Agree with above recommendations [facility] encounterUK [facility]* Diagnosis Convulsions, unspecified convulsion type (HCC)- [facility] Diagnosis Partial symptomatic epilepsy with complex partial seizures, not intractable, without status epilepticus (HCC) [facility] Diagnosis Partial symptomatic epilepsy with complex partial seizures, not intractable, without status epilepticus (HCC) [facility] Diagnosis Partial symptomatic epilepsy with complex partial seizures, not intractable, without status epilepticus (HCC)- Primary [facility] this encounter [facility]* Diagnosis Partial symptomatic epilepsy with complex partial seizures, not intractable, without status epilepticus (HCC)- Primary [facility] Diagnosis Partial symptomatic epilepsy with complex partial seizures, not intractable, without status epilepticus (HCC) [facility]* Diagnosis Partial symptomatic epilepsy with complex partial seizures, not intractable, without status epilepticus (HCC) [facility]* Diagnosis Palpitations- Primary [facility] noteNo assessment information [facility] Work Phone: Evaluation note* Diagnosis Palpitations [R00.2 (ICD-10-CM)]- Primary Palpitations [facility] this [facility]* Diagnosis Partial symptomatic epilepsy with complex partial seizures, not intractable, without status epilepticus (HCC)- Primary [facility]* Diagnosis Partial symptomatic epilepsy with complex partial seizures, not intractable, without status epilepticus (HCC) documented [facility] this [facility]* Diagnosis Partial symptomatic epilepsy with complex partial seizures, not intractable, without status epilepticus (HCC)- Primary [facility]* Diagnosis Partial symptomatic epilepsy with complex partial seizures, not intractable, without status epilepticus (HCC) [facility]* Diagnosis Partial symptomatic epilepsy with complex partial seizures, not intractable, without status epilepticus (HCC)- Primary [facility]* Diagnosis Partial symptomatic epilepsy with complex partial seizures, not intractable, without status epilepticus (HCC)- Primary Seizure (HCC) Other convulsions [facility]* Diagnosis Partial symptomatic epilepsy with complex partial seizures, not intractable, without status epilepticus (HCC)- Primary Seizure (HCC) Other convulsions [facility] Diagnosis Partial symptomatic epilepsy with complex partial seizures, not intractable, without status epilepticus (HCC) [facility] Diagnosis Encounter for other preprocedural examination- Primary Partial symptomatic epilepsy with complex partial seizures, not intractable, without status epilepticus (HCC) Preoperative testing Preoperative examination, unspecified [facility] Diagnosis Pre-op evaluation- Primary Preoperative examination, unspecified [facility] Diagnosis Pre-op evaluation- Primary Preoperative examination, unspecified Partial symptomatic epilepsy with complex partial seizures, not intractable, without status epilepticus (HCC) [facility] Diagnosis Preoperative examination- Primary Preoperative examination, unspecified Partial symptomatic epilepsy with complex partial seizures, not intractable, without status epilepticus (HCC) [facility] Diagnosis Encounter for other preprocedural examination Partial symptomatic epilepsy with complex partial seizures, not intractable, without status epilepticus (HCC) Preoperative testing Preoperative examination, unspecified Partial symptomatic epilepsy with complex partial seizures, not intractable, without status epilepticus (HCC) [facility] Diagnosis Encounter for other preprocedural examination Partial symptomatic epilepsy with complex partial seizures, not intractable, without status epilepticus (HCC) Preoperative testing Preoperative examination, unspecified Partial symptomatic epilepsy with complex partial seizures, not intractable, without status epilepticus (HCC) [facility] Diagnosis Preoperative cardiovascular examination- Primary Pre-operative cardiovascular examination Partial symptomatic epilepsy with complex partial seizures, not intractable, without status epilepticus (HCC) Preoperative testing Preoperative examination, unspecified Partial symptomatic epilepsy with complex partial seizures, not intractable, without status epilepticus (HCC) [facility] Diagnosis Acute deep vein thrombosis (DVT) of axillary vein of left upper extremity (HCC)- Primary [facility]* Diagnosis Acute deep vein thrombosis (DVT) of brachial vein of left upper extremity (HCC)- Primary [facility] Diagnosis Partial symptomatic epilepsy with complex partial seizures, not intractable, without status epilepticus (HCC)- Primary Refractory epilepsy (HCC) Unspecified epilepsy with intractable epilepsy Seizure (HCC) Other convulsions S/P brain surgery Other postprocedural status [facility] Diagnosis Encounter for other preprocedural examination- Primary Partial symptomatic epilepsy with complex partial seizures, not intractable, without status epilepticus (HCC) Preoperative examination Preoperative examination, unspecified [facility] Diagnosis Encounter for other preprocedural examination Partial symptomatic epilepsy with complex partial seizures, not intractable, without status epilepticus (HCC) Preoperative examination Preoperative examination, unspecified Partial symptomatic epilepsy with complex partial seizures, not intractable, without status epilepticus (HCC) [facility] Diagnosis Visit for suture removal- Primary Encounter for removal of sutures [facility]* Diagnosis S/P craniotomy- Primary Other postprocedural status [facility] this [facility]* Diagnosis Partial symptomatic epilepsy with complex partial seizures, not intractable, without status epilepticus (HCC)- Primary S/P brain surgery Other postprocedural status [facility]* Diagnosis Seizure (HCC) Other convulsions [facility]* Diagnosis Seizure (HCC) Other convulsions [facility] this [facility]* Diagnosis Partial symptomatic epilepsy with complex partial seizures, not intractable, without status epilepticus (HCC)- Primary S/P brain surgery Other postprocedural status [facility] this [facility]* Diagnosis Partial symptomatic epilepsy with complex partial seizures, not intractable, without status epilepticus (HCC) S/P brain surgery Other postprocedural status [facility] this [facility]* Diagnosis Partial symptomatic epilepsy with complex partial seizures, not intractable, without status epilepticus (HCC)- Primary Recurrent major depression in partial remission (HCC) Major depressive disorder, recurrent episode, in partial or unspecified remission documented [facility] this [facility]* Diagnosis Other epilepsy without status epilepticus, not intractable (CMS/HCC)- Primary Anxiety and depression (CMS/HCC) S/P brain surgery Other postprocedural status Seizure (CMS/HCC) Other convulsions [facility]* Diagnosis Seizure (HCC) Other convulsions [facility]* Diagnosis Seizure (HCC) Other convulsions [facility] N[facility]ative No data available for this section [facility] Additional Instructions Do not take zonisamide anymore until you have followed up with your neurologist [facility] this medication first thing this morning regarding your medications if you begin to feel those symptoms again you can take a dose of benadryl 25mg [facility] Work Phone: Hospital Discharge instructions Additional Instructions There is no sign of a dangerous problem tonight. Please follow up with Dr Andrew. You may need more testing or referral to a GI doctor if your symptoms are not improving. If you have worsening problems or any other concerns we are happy to see you at any time. I have provided some information for you on irritable bowel syndrome, which is a possible cause for your abdominal symptoms. I have also prescribed a gentle laxative because as we discussed, the CAT scan looked like you may have been a little constipated.[facility] Work Phone: Hospital Discharge instructions No data available for this section [facility] No data available for this section [facility] (narrative[facility] Outpatient Procedure (Routine) - Pending Review Specialty Diagnoses / Procedures Referred By Andres angulo Referred To Contact [facility]UROLOGICAL [place] Diagnoses Convulsions, unspecified convulsion type (HCC) Procedures EPIL EEG LONG EEG EXTENDED MONITORING 61-119 MINUTES ELECTROENCEPHALOGRAM REC COMA/SLEEP ONLY Neur Epilepsy Main [address] [place] [address] [facility] [place] [address] [place], [place] [id number] Referral ID Status Reason Start Date Expiration Date Visits Requested Visits Authorized [id number] Pending Review Auto-Generat ed Referral 11/19/2021 11/19/2022 1 1 [facility] for referral (narrative)* Outpatient Procedure (Routine) - Authorized Specialty Diagnoses / Procedures Referred By Andres angulo Referred To Contact [facility]UROLOG[facility] [place] Diagnoses Partial symptomatic epilepsy with complex partial seizures, not intractable, without status epilepticus (HCC) Procedures EPIL EEG W PROCEDURE CARDIOVASCULAR FUNCTION EVAL W/TILT TABLE W/MNTR Claudio Michaels, BLACKSMITH SUPERVISOR.LEVEL VIAL SETTER [address] [id number] [facility] [place] [address] [place] [address] Referral ID Status Reason Start Date Expiration Date Visits Requested Visits Authorized [id number] Authorized Auto-Generat ed Referral 09/09/2022 09/09/2023 1 1 [facility] for referral (narrative)* Outpatient Procedure (Routine) - Authorized Specialty Diagnoses / Procedures Referred By Contac t Referred To Contact HEART [facility] [place] Diagnoses Pre-op evaluation Procedures ECG COMPLETE ECG ROUTINE ECG W/LEAST 12 LDS W/I&R Christiano Vaca MD [address] [id number] [facility] [place] [address] Referral ID Status Reason Start Date Expiration Date Visits Requested Visits Authorized [id number] Authorized Auto-Generat ed Referral 10/21/2022 10/21/2023 1 1 [facility] for referral (narrative)* Diagnostic Procedure Only (Routine) - Pending Review Specialty Diagnoses / Procedures Referred By Contac t Referred To Contact US IMAGING Diagnoses Acute deep vein thrombosis (DVT) of axillary vein of left upper extremity (HCC) Procedures US DVT UPPER LEFT DUP-SCAN XTR VEINS UNILATERAL/LIMITED STUDY Evaristo Torres PA-C [address] [id number] [facility] Imaging Referral ID Status Reason Start Date Expiration Date Visits Requested Visits Authorized [id number] Pending Review Auto-Generat ed Referral 12/27/2022 01/25/2024 1 1 * Diagnostic Procedure Only (Routine) - Pending Review Specialty Diagnoses / Procedures Referred By Contac t Referred To Contact US IMAGING Diagnoses Acute deep vein thrombosis (DVT) of axillary vein of left upper extremity (HCC) Procedures US DVT UPPER LEFT DUP-SCAN XTR VEINS UNILATERAL/LIMITED STUDY Evaristo [facility] PA-C [address] [place] [address] Us Imaging Referral ID Status Reason Start Date Expiration Date Visits Requested Visits Authorized [id number] Pending Review Auto-Generat ed Referral 01/06/2023 01/25/2024 1 1 [facility] for referral (narrative)* Outpatient Procedure (Routine) - Pending Review Specialty Diagnoses / Procedures Referred By Contac t Referred To Contact [facility] [place] Diagnoses Acute deep vein thrombosis (DVT) of brachial vein of left upper extremity (HCC) Procedures US ARM VEIN DVT UNL VAS LAB DUP-SCAN XTR VEINS UNILATERAL/LIMITED STUDY Jarad Son DO [address] [address] [facility] [address] [address] Referral ID Status Reason Start Date Expiration Date Visits Requested Visits Authorized [id number] Pending Review Auto-Generat ed Referral 01/04/2023 12/26/2023 1 1 * Outpatient Procedure (Routine) - Authorized Specialty Diagnoses / Procedures Referred By Contac t Referred To Contact [facility] [place] Diagnoses Acute deep vein thrombosis (DVT) of brachial vein of left upper extremity (HCC) Procedures US ARM VEIN DVT UNL VAS LAB DUP-SCAN XTR VEINS UNILATERAL/LIMITED STUDY Jarad Son DO [address] [address] [facility] [address] [address] Referral ID Status Reason Start Date Expiration Date Visits Requested Visits Authorized [id number] Authorized Auto-Generat ed Referral 12/28/2022 12/26/2023 1 1 [facility] for visit Narrative* Outpatient Procedure (Routine) - Closed Specialty Diagnoses / Procedures Referred By Andres angulo Referred To Contact [facility] Diagnoses Partial symptomatic epilepsy with complex partial seizures, not intractable, without status epilepticus (HCC) Procedures EPIL ANA SPONTANEOUS BRAIN ACTIVTY MAGNETOENCEPHALOGRAPHY SPON BRAIN ACTIVITY Leena Greenberg PA-C [address] [place] [address] [facility] [place] [address] [place] [id number] Referral ID Status Reason Start Date Expiration Date V isits Requested Visits Authorized [id number] Closed Auto-Generate d Referral 08/30/2022 08/30/2023 1 1 [facility] Summary Purpose Family History No Family History Records Found Relationship Condition Age at Onset Recorded Date/T jade Not Specified No pertinent family history Unknown Advance Directives No Advanced Directives Records Found Advance Directive Response Recorded Date/ Time Advance Directives No December 28 10:53pm Advance Directive Response Recorded Date/ Time Advance Directives No December 28 8 9:53pm Reason for Referral Specialty Diagnoses / Procedures Referred By Andres angulo Referred To Contact MR IMAGING Diagnoses Partial symptomatic epilepsy with complex partial seizures, not intractable, without status epilepticus (HCC) Procedures MRI BRAIN WO IVCON MRI BRAIN BRAIN STEM W/O CONTRAST MATERIAL Robert Marin MD [address] [place] [address] Mr Imaging Referral ID Status Reason Start Date Expiration Date Visits Requested Visits Authorized [id number] Authorized Auto-Generat ed Referral 12/22/2021 02/05/2022 1 1 Referral ID Status Reason Start Date Expiration Date V isits Requested Visits Authorized [id number] Closed Auto-Generate d Referral 12/22/2021 02/05/2022 1 1 Specialty Diagnoses / Procedures Referred By Andres angulo Referred To Contact Robert Marin MD [address] [place] [address] Referral ID Status Reason Start Date Expiration Date Visits Re quested Visits Authorized [id number] Closed 1 1 Specialty Diagnoses / Procedures Referred By Andres angulo Referred To Contact Cardiology Diagnoses Partial symptomatic epilepsy with complex partial seizures, not intractable, without status epilepticus (HCC) Procedures CONSULT TO CARDIOLOGY OFFICE/OUTPATIENT [facility] 60-74 MINUTES Robert Marin MD [address] [place] [address] Referral ID Status Reason Start Date Expiration Date Visits Requested Visits Authorized [id number] Authorized PCP Requested Referral 03/28/2022 03/28/2023 1 1 Specialty Diagnoses / Procedures Referred By Contac t Referred To Contact MR IMAGING Diagnoses Partial symptomatic epilepsy with complex partial seizures, not intractable, without status epilepticus (HCC) Procedures MRI BRAIN FUNCTIONAL W PHYS WO IVCON MRI BRAIN FUNCTIONAL W/PHYSICIAN ADMNISTRATION TEST SELECT & ADMN FUNCTL BRAIN MAP PHYS/QHP Leena Greenberg PA-C [address] [place] [address] Mr Imaging Referral ID Status Reason Start Date Expiration Date V isits Requested Visits Authorized [id number] Closed Auto-Generate d Referral 08/30/2022 09/29/2023 1 1 Specialty Diagnoses / Procedures Referred By Contac t Referred To Contact MR IMAGING Diagnoses Partial symptomatic epilepsy with complex partial seizures, not intractable, without status epilepticus (HCC) Procedures MRI 3D POST PROCESSING 3D RENDERING W/INTERP&POSTPROC DIFF WORK STATION Leena Greenberg PA-C [address] [place] [address] Mr Imaging Referral ID Status Reason Start Date Expiration Date V isits Requested Visits Authorized [id number] Closed Auto-Generate d Referral 08/30/2022 09/29/2023 1 1 Referral ID Status Reason Start Date Expiration Date Visits Requested Visits Authorized [id number] Pending Review Auto-Generat ed Referral 09/29/2022 10/29/2023 1 1 Specialty Diagnoses / Procedures Referred By Contac t Referred To Contact Neurosurgery Diagnoses Partial symptomatic epilepsy with complex partial seizures, not intractable, without status epilepticus (HCC) Procedures CONSULT TO NEUROSURGERY OFFICE/OUTPATIENT [facility] 60-74 MINUTES Robert Marin MD [address] [place] [address] Referral ID Status Reason Start Date Expiration Date Visits Requested Visits Authorized [id number] Authorized PCP Requested Referral 10/12/2022 10/12/2023 1 1 Referral ID Status Reason Start Date Expiration Date V isits Requested Visits Authorized [id number] Closed Auto-Generate d Referral 09/29/2022 10/29/2023 1 1 Specialty Diagnoses / Procedures Referred By Contac t Referred To Contact MR IMAGING Diagnoses Encounter for other preprocedural examination Partial symptomatic epilepsy with complex partial seizures, not intractable, without status epilepticus (HCC) Preoperative testing Procedures MRI BRAIN LOCALIZATION W IVCON UNLISTED MAGNETIC RESONANCE PROCED Evaristo Torres PA-C [address] [place] [address] Mr Imaging Referral ID Status Reason Start Date Expiration Date Visits Requested Visits Authorized [id number] Pending Review Auto-Generat ed Referral 11/22/2022 11/18/2023 1 1 Specialty Diagnoses / Procedures Referred By Contac t Referred To Contact CT IMAGING Diagnoses Encounter for other preprocedural examination Partial symptomatic epilepsy with complex partial seizures, not intractable, without status epilepticus (HCC) Preoperative testing Procedures CTA HEAD W IVCON CT ANGIOGRAPHY HEAD W/CONTRAST/NONCONTRAST Evaristo [facility] PA-C [address] [place] [address] Ct Imaging Referral ID Status Reason Start Date Expiration Date Visits Requested Visits Authorized [id number] Pending Review Auto-Generat ed Referral 11/22/2022 11/18/2023 1 1 Specialty Diagnoses / Procedures Referred By Contac t Referred To Contact [facility] Diagnoses Preoperative testing Procedures ECG COMPLETE ECG ROUTINE ECG W/LEAST 12 LDS W/I&R Evaristo Torres PA-C [address] [place] [address] [facility] [place] [address] [place] [address] Referral ID Status Reason Start Date Expiration Date Visits Requested Visits Authorized [id number] Pending Review Auto-Generat ed Referral 10/19/2022 10/19/2023 1 1 Specialty Diagnoses / Procedures Referred By Contac t Referred To Contact Cardiology Diagnoses Preoperative testing Procedures CONSULT TO CARDIOLOGY OFFICE/OUTPATIENT [facility] 60-74 MINUTES Evaristo [facility] PA-C [address] [id number] Referral ID Status Reason Start Date Expiration Date Visits Requested Visits Authorized [id number] Authorized PCP Requested Referral 10/19/2022 10/19/2023 1 1 Referral ID Status Reason Start Date Expiration Date V isits Requested Visits Authorized [id number] Closed Auto-Generate d Referral 11/22/2022 11/18/2023 1 1 Referral ID Status Reason Start Date Expiration Date V isits Requested Visits Authorized [id number] Closed Auto-Generate d Referral 11/22/2022 11/18/2023 1 1 Specialty Diagnoses / Procedures Referred By Andres angulo Referred To Contact MR IMAGING Diagnoses Encounter for other preprocedural examination Partial symptomatic epilepsy with complex partial seizures, not intractable, without status epilepticus (HCC) Preoperative examination Procedures MRI BRAIN LOCALIZATION WO IVCON UNLISTED MAGNETIC RESONANCE PROCED Evaristo [facility] PA-C [address] [id number] Mr Imaging Referral ID Status Reason Start Date Expiration Date Visits Requested Visits Authorized [id number] Pending Review Auto-Generat ed Referral 01/10/2023 02/09/2024 1 1 Specialty Diagnoses / Procedures Referred By Andres t Referred To Contact Diagnoses Partial symptomatic epilepsy with complex partial seizures, not intractable, without status epilepticus (HCC) Preoperative examination Procedures REFER TO PACC - PRE ANESTHESIA CONSULTATION CLINIC OFFICE/OUTPATIENT [facility] 60-74 MINUTES Evaristo [facility] PA-C [address] [phone] Referral ID Status Reason Start Date Expiration Date Visits Requested Visits Authorized [id number] Authorized PCP Requested Referral 01/10/2023 01/10/2024 1 1 Specialty Diagnoses / Procedures Referred By Andres t Referred To Contact MR IMAGING Diagnoses Encounter for other preprocedural examination Partial symptomatic epilepsy with complex partial seizures, not intractable, without status epilepticus (HCC) Preoperative examination Procedures MRI BRAIN LOCALIZATION WO IVCON UNLISTED MAGNETIC RESONANCE PROCED MRI BRAIN BRAIN STEM W/O CONTRAST MATERIAL Evaristo Torres PA-C [address] [place] [address] Mr Imaging Referral ID Status Reason Start Date Expiration Date V isits Requested Visits Authorized [id number] Closed Auto-Generat ed Referral Patient Cleared - Admin/Chairm an/Director advise to proceed 01/10/2023 02/09/2024 1 1 Specialty Diagnoses / Procedures [facility] Referred To Contact MR [facility] Diagnoses Partial symptomatic epilepsy with complex partial seizures, not intractable, without status epilepticus (HCC) S/P brain surgery Procedures MRI BRAIN WO IVCON MRI BRAIN BRAIN STEM W/O CONTRAST MATERIAL Claudio Michaels, BLACKSMITH SUPERVISOR.[facility] [address] [place] [address] Mr Imaging Referral ID Status Reason Start Date Expiration Date Visits Requested Visits Authorized [id number] Pending Review Auto-Generat ed Referral 03/10/2023 04/08/2024 1 1 Specialty Diagnoses / Procedures [facility] Referred To Contact MR IM[facility] Diagnoses Partial symptomatic epilepsy with complex partial seizures, not intractable, without status epilepticus (HCC) S/P brain surgery Procedures MRI BRAIN WO IVCON MRI BRAIN BRAIN STEM W/O CONTRAST MATERIAL Claudio Michaels, BLACKSMITH SUPERVISOR.LEVEL VIAL SETTER [address] [place] [address] [place] [id number] Referral ID Status Reason Start Date Expiration Date V isits Requested Visits Authorized [id number] Closed Auto-Generate d Referral 03/10/2023 04/08/2024 1 1 Specialty Diagnoses / Procedures [facility] To Contact Diagnoses Partial symptomatic epilepsy with complex partial seizures, not intractable, 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) Procedures CONSULT TO PSYCHIATRY OFFICE/OUTPATIENT [facility] 60-74 MINUTES Robert Marin MD [address] [place] [address] Referral ID Status Reason Start Date Expiration Date Visits Requested Visits Authorized [id number] Pending Review PCP Requested Referral 3 07/23/2024 1 1 Chief Complaint and Reason for Visit Chief Complaint Headache, Blood in U rine Syncopal Episode heart racing Tachycardia Allergic reaction Chief Complaint stomach burning Chief Complaint stomach burning Seizures Chief Complaint stomach burning Seizures vomiting, weakness Chief Complaint left breast pain-swe lling Health Concerns Infection Onset Date Last Indicated Resolved Time COVID-19 Rule-Out 10/03/2022 10/03/2022 10/03/2022 6:45 AM EST Infection Onset Date Last Indicated Resolved Time COVID-19 Rule-Out 08/26/2022 08/26/2022 08/26/2022 7:26 PM EST COVID-19 Rule-Out 10/03/2022 10/03/2022 10/03/2022 6:45 AM EST Additional Source Comments INFORMATION SOURCE (unrecogn ized section and content) DATE CREATED AUTHOR 07/22/2021 [facility] dical Specialist DATE CREATED AUTHOR AUTHOR'S ORGANIZ ATION 01/07/2022 [facility] DATE CREATED AUTHOR AUTHOR'S ORGANIZ ATION 09/17/2023 [facility] DATE CREATED AUTHOR AUTHOR'S ORGANIZ ATION 10/26/2023 [facility] dical Specialists [facility] DATE CREATED AUTHOR AUTHOR'S ORGANIZ ATION 12/12/2023 [facility] DATE CREATED AUTHOR AUTHOR'S ORGANIZ ATION 12/17/2023 [facility] y[facility] Source Comments (unrecognize d section and content) In the event this informatio n is protected by the Federal Confidentiality of Alcohol and Drug Abuse Patient Records regulations: The Federal rules restrict any use of the information to criminally investigate or prosecute any alcohol or drug abuse patient.[facility] the event this information is protected by the Federal Confidentiality of Alcohol and Drug Abuse Patient Records regulations: The Federal rules restrict any use of the information to criminally investigate or prosecute any alcohol or drug abuse patient.[facility] CampusIn the event this information is protected by the Federal Confidentiality of Alcohol and Drug Abuse Patient Records regulations: The Federal rules restrict any use of the information to criminally investigate or prosecute any alcohol or drug abuse patient.[facility] CampusIn the event this information is protected by the Federal Confidentiality of Alcohol and Drug Abuse Patient Records regulations: The Federal rules restrict any use of the information to criminally investigate or prosecute any alcohol or drug abuse patient.[facility] CampusIn the event this information is protected by the Federal Confidentiality of Alcohol and Drug Abuse Patient Records regulations: The Federal rules restrict any use of the information to criminally investigate or prosecute any alcohol or drug abuse patient.[facility] CampusIn the event this information is protected by the Federal Confidentiality of Alcohol and Drug Abuse Patient Records regulations: The Federal rules restrict any use of the information to criminally investigate or prosecute any alcohol or drug abuse patient.[facility] CampusIn the event this information is protected by the Federal Confidentiality of Alcohol and Drug Abuse Patient Records regulations: The Federal rules restrict any use of the information to criminally investigate or prosecute any alcohol or drug abuse patient.[facility] CampusIn the event this information is protected by the Federal Confidentiality of Alcohol and Drug Abuse Patient Records regulations: The Federal rules restrict any use of the information to criminally investigate or prosecute any alcohol or drug abuse patient.[facility] CampusIn the event this information is protected by the Federal Confidentiality of Alcohol and Drug Abuse Patient Records regulations: The Federal rules restrict any use of the information to criminally investigate or prosecute any alcohol or drug abuse patient.[facility] CampusIn the event this information is protected by the Federal Confidentiality of Alcohol and Drug Abuse Patient Records regulations: The Federal rules restrict any use of the information to criminally investigate or prosecute any alcohol or drug abuse patient.[facility] CampusIn the event this information is protected by the Federal Confidentiality of Alcohol and Drug Abuse Patient Records regulations: The Federal rules restrict any use of the information to criminally investigate or prosecute any alcohol or drug abuse patient.[facility] CampusIn the event this information is protected by the Federal Confidentiality of Alcohol and Drug Abuse Patient Records regulations: The Federal rules restrict any use of the information to criminally investigate or prosecute any alcohol or drug abuse patient.[facility] CampusIn the event this information is protected by the Federal Confidentiality of Alcohol and Drug Abuse Patient Records regulations: The Federal rules restrict any use of the information to criminally investigate or prosecute any alcohol or drug abuse patient.[facility] CampusIn the event this information is protected by the Federal Confidentiality of Alcohol and Drug Abuse Patient Records regulations: The Federal rules restrict any use of the information to criminally investigate or prosecute any alcohol or drug abuse patient.[facility] CampusIn the event this information is protected by the Federal Confidentiality of Alcohol and Drug Abuse Patient Records regulations: The Federal rules restrict any use of the information to criminally investigate or prosecute any alcohol or drug abuse patient.[facility] CampusIn the event this information is protected by the Federal Confidentiality of Alcohol and Drug Abuse Patient Records regulations: The Federal rules restrict any use of the information to criminally investigate or prosecute any alcohol or drug abuse patient.[facility] CampusIn the event this information is protected by the Federal Confidentiality of Alcohol and Drug Abuse Patient Records regulations: The Federal rules restrict any use of the information to criminally investigate or prosecute any alcohol or drug abuse patient.[facility] CampusIn the event this information is protected by the Federal Confidentiality of Alcohol and Drug Abuse Patient Records regulations: The Federal rules restrict any use of the information to criminally investigate or prosecute any alcohol or drug abuse patient.[facility] CampusIn the event this information is protected by the Federal Confidentiality of Alcohol and Drug Abuse Patient Records regulations: The Federal rules restrict any use of the information to criminally investigate or prosecute any alcohol or drug abuse patient.[facility] CampusIn the event this information is protected by the Federal Confidentiality of Alcohol and Drug Abuse Patient Records regulations: The Federal rules restrict any use of the information to criminally investigate or prosecute any alcohol or drug abuse patient.[facility] CampusIn the event this information is protected by the Federal Confidentiality of Alcohol and Drug Abuse Patient Records regulations: The Federal rules restrict any use of the information to criminally investigate or prosecute any alcohol or drug abuse patient.[facility] CampusIn the event this information is protected by the Federal Confidentiality of Alcohol and Drug Abuse Patient Records regulations: The Federal rules restrict any use of the information to criminally investigate or prosecute any alcohol or drug abuse patient.[facility] CampusIn the event this information is protected by the Federal Confidentiality of Alcohol and Drug Abuse Patient Records regulations: The Federal rules restrict any use of the information to criminally investigate or prosecute any alcohol or drug abuse patient.[facility] CampusIn the event this information is protected by the Federal Confidentiality of Alcohol and Drug Abuse Patient Records regulations: The Federal rules restrict any use of the information to criminally investigate or prosecute any alcohol or drug abuse patient.[facility] CampusIn the event this information is protected by the Federal Confidentiality of Alcohol and Drug Abuse Patient Records regulations: The Federal rules restrict any use of the information to criminally investigate or prosecute any alcohol or drug abuse patient.[facility] CampusIn the event this information is protected by the Federal Confidentiality of Alcohol and Drug Abuse Patient Records regulations: The Federal rules restrict any use of the information to criminally investigate or prosecute any alcohol or drug abuse patient.[facility] CampusIn the event this information is protected by the Federal Confidentiality of Alcohol and Drug Abuse Patient Records regulations: The Federal rules restrict any use of the information to criminally investigate or prosecute any alcohol or drug abuse patient.[facility] CampusIn the event this information is protected by the Federal Confidentiality of Alcohol and Drug Abuse Patient Records regulations: The Federal rules restrict any use of the information to criminally investigate or prosecute any alcohol or drug abuse patient.[facility] CampusIn the event this information is protected by the Federal Confidentiality of Alcohol and Drug Abuse Patient Records regulations: The Federal rules restrict any use of the information to criminally investigate or prosecute any alcohol or drug abuse patient.[facility] CampusIn the event this information is protected by the Federal Confidentiality of Alcohol and Drug Abuse Patient Records regulations: The Federal rules restrict any use of the information to criminally investigate or prosecute any alcohol or drug abuse patient.[facility] CampusIn the event this information is protected by the Federal Confidentiality of Alcohol and Drug Abuse Patient Records regulations: The Federal rules restrict any use of the information to criminally investigate or prosecute any alcohol or drug abuse patient.[facility] CampusIn the event this information is protected by the Federal Confidentiality of Alcohol and Drug Abuse Patient Records regulations: The Federal rules restrict any use of the information to criminally investigate or prosecute any alcohol or drug abuse patient.[facility] CampusIn the event this information is protected by the Federal Confidentiality of Alcohol and Drug Abuse Patient Records regulations: The Federal rules restrict any use of the information to criminally investigate or prosecute any alcohol or drug abuse patient.[facility] CampusIn the event this information is protected by the Federal Confidentiality of Alcohol and Drug Abuse Patient Records regulations: The Federal rules restrict any use of the information to criminally investigate or prosecute any alcohol or drug abuse patient.[facility] CampusIn the event this information is protected by the Federal Confidentiality of Alcohol and Drug Abuse Patient Records regulations: The Federal rules restrict any use of the information to criminally investigate or prosecute any alcohol or drug abuse patient.[facility] CampusIn the event this information is protected by the Federal Confidentiality of Alcohol and Drug Abuse Patient Records regulations: The Federal rules restrict any use of the information to criminally investigate or prosecute any alcohol or drug abuse patient.[facility] CampusIn the event this information is protected by the Federal Confidentiality of Alcohol and Drug Abuse Patient Records regulations: The Federal rules restrict any use of the information to criminally investigate or prosecute any alcohol or drug abuse patient.[facility] CampusIn the event this information is protected by the Federal Confidentiality of Alcohol and Drug Abuse Patient Records regulations: The Federal rules restrict any use of the information to criminally investigate or prosecute any alcohol or drug abuse patient.[facility] CampusIn the event this information is protected by the Federal Confidentiality of Alcohol and Drug Abuse Patient Records regulations: The Federal rules restrict any use of the information to criminally investigate or prosecute any alcohol or drug abuse patient.[facility] CampusIn the event this information is protected by the Federal Confidentiality of Alcohol and Drug Abuse Patient Records regulations: The Federal rules restrict any use of the information to criminally investigate or prosecute any alcohol or drug abuse patient.[facility] CampusIn the event this information is protected by the Federal Confidentiality of Alcohol and Drug Abuse Patient Records regulations: The Federal rules restrict any use of the information to criminally investigate or prosecute any alcohol or drug abuse patient.[facility] CampusIn the event this information is protected by the Federal Confidentiality of Alcohol and Drug Abuse Patient Records regulations: The Federal rules restrict any use of the information to criminally investigate or prosecute any alcohol or drug abuse patient.[facility] CampusIn the event this information is protected by the Federal Confidentiality of Alcohol and Drug Abuse Patient Records regulations: The Federal rules restrict any use of the information to criminally investigate or prosecute any alcohol or drug abuse patient.[facility] CampusIn the event this information is protected by the Federal Confidentiality of Alcohol and Drug Abuse Patient Records regulations: The Federal rules restrict any use of the information to criminally investigate or prosecute any alcohol or drug abuse patient.[facility] CampusIn the event this information is protected by the Federal Confidentiality of Alcohol and Drug Abuse Patient Records regulations: The Federal rules restrict any use of the information to criminally investigate or prosecute any alcohol or drug abuse patient.[facility] CampusIn the event this information is protected by the Federal Confidentiality of Alcohol and Drug Abuse Patient Records regulations: The Federal rules restrict any use of the information to criminally investigate or prosecute any alcohol or drug abuse patient.[facility] CampusIn the event this information is protected by the Federal Confidentiality of Alcohol and Drug Abuse Patient Records regulations: The Federal rules restrict any use of the information to criminally investigate or prosecute any alcohol or drug abuse patient.[facility] CampusIn the event this information is protected by the Federal Confidentiality of Alcohol and Drug Abuse Patient Records regulations: The Federal rules restrict any use of the information to criminally investigate or prosecute any alcohol or drug abuse patient.[facility] CampusIn the event this information is protected by the Federal Confidentiality of Alcohol and Drug Abuse Patient Records regulations: The Federal rules restrict any use of the information to criminally investigate or prosecute any alcohol or drug abuse patient.[facility] CampusIn the event this information is protected by the Federal Confidentiality of Alcohol and Drug Abuse Patient Records regulations: The Federal rules restrict any use of the information to criminally investigate or prosecute any alcohol or drug abuse patient.[facility] CampusIn the event this information is protected by the Federal Confidentiality of Alcohol and Drug Abuse Patient Records regulations: The Federal rules restrict any use of the information to criminally investigate or prosecute any alcohol or drug abuse patient.[facility] CampusIn the event this information is protected by the Federal Confidentiality of Alcohol and Drug Abuse Patient Records regulations: The Federal rules restrict any use of the information to criminally investigate or prosecute any alcohol or drug abuse patient.[facility] CampusIn the event this information is protected by the Federal Confidentiality of Alcohol and Drug Abuse Patient Records regulations: The Federal rules restrict any use of the information to criminally investigate or prosecute any alcohol or drug abuse patient.[facility] CampusIn the event this information is protected by the Federal Confidentiality of Alcohol and Drug Abuse Patient Records regulations: The Federal rules restrict any use of the information to criminally investigate or prosecute any alcohol or drug abuse patient.[facility] CampusIn the event this information is protected by the Federal Confidentiality of Alcohol and Drug Abuse Patient Records regulations: The Federal rules restrict any use of the information to criminally investigate or prosecute any alcohol or drug abuse patient.[facility] CampusIn the event this information is protected by the Federal Confidentiality of Alcohol and Drug Abuse Patient Records regulations: The Federal rules restrict any use of the information to criminally investigate or prosecute any alcohol or drug abuse patient.[facility] CampusIn the event this information is protected by the Federal Confidentiality of Alcohol and Drug Abuse Patient Records regulations: The Federal rules restrict any use of the information to criminally investigate or prosecute any alcohol or drug abuse patient.[facility] CampusIn the event this information is protected by the Federal Confidentiality of Alcohol and Drug Abuse Patient Records regulations: The Federal rules restrict any use of the information to criminally investigate or prosecute any alcohol or drug abuse patient.[facility] Care Teams (unrecognized sec tion and content) Team Status: Active Member Role Status Dates Remi Andrew MD Primary Care Provider Active Team Status: Inactive Member Role Status Dates Remi Andrew MD Primary Care Provider Active Feng Barlow PA-C Emergency Provider Active Pharmacy Operations Manager Relationship Specialty Start Date End Date Remi Andrew MD [address] [place] [phone] PCP - General Family Practice 10/19/16 Pharmacy Operations Manager Relationship Specialty Start Date End Date Remi Andrew MD [address] [place] [phone] PCP - General Family Practice 10/19/16 Pharmacy Operations Manager Relationship Specialty Start Date End Date Remi Andrew MD [address] [place] [phone] PCP - General Family Practice 10/19/16 Pharmacy Operations Manager Relationship Specialty Start Date End Date Remi Andrew MD [address] [place] [address] PCP - General Family Practice 10/19/16 Pharmacy Operations Manager Relationship Specialty Start Date End Date Remi Andrew MD [address] [place] [phone] PCP - General Family Practice 10/19/16 Pharmacy Operations Manager Relationship Specialty Start Date End Date Remi Andrew MD [address] [place] [address] PCP - General Family Practice 10/19/16 Pharmacy Operations Manager Relationship Specialty Start Date End Date Remi Andrew MD [address] [place] [address] PCP - General Family Practice 10/19/16 Pharmacy Operations Manager Relationship Specialty Start Date End Date Remi Andrew MD [address] [place] [address] PCP - General Family Practice 10/19/16 Pharmacy Operations Manager Relationship Specialty Start Date End Date Remi Andrew MD [address] [place] [phone] PCP - General Family Practice 10/19/16 Pharmacy Operations Manager Relationship Specialty Start Date End Date Remi Andrew MD [address] [place] [address] PCP - General Family Practice 10/19/16 Team Status: Inactive Member Role Status Dates Remi Andrew MD Primary Care Provider Active Kristine [place] , [facility] Emergency Provider Active Gonzales Mayes DO RES Active Team Status: Inactive Member Role Status Dates Bill Keith , Emergency Provider Active Remi Andrew MD Primary Care Provider Active Team Status: Inactive Member Role Status Dates Remi Andrew MD Primary Care Provider Active Feng Barlow PA-C Attending Provider Active Team Status: Inactive Member Role Status Dates Remi Andrew MD Primary Care Provider Active Brando Guy DO Emergency Provider Active Pharmacy Operations Manager Relationship Specialty Start Date End Date Remi Andrew MD [address] [place] [phone] PCP - General Family Practice 10/19/16 Pharmacy Operations Manager Relationship Specialty Start Date End Date Remi Andrew MD [address] [place] [phone] PCP - General Family Medicine 10/19/16 Pharmacy Operations Manager Relationship Specialty Start Date End Date Remi Andrew MD [address] [place] [phone] PCP - General Family Medicine 10/19/16 Pharmacy Operations Manager Relationship Specialty Start Date End Date Remi Andrew MD [address] [place] [phone] PCP - General Family Medicine 10/19/16 Team Status: Inactive Member Role Status Dates Remi Andrew MD Primary Care Provider Active Sedrick Pina Jr, MD Emergency Provider Active Team Status: Inactive Member Role Status Dates Remi Andrew MD Primary Care Provider Active Madiha Funk PA-C Emergency Provider Active Pharmacy Operations Manager Relationship Specialty Start Date End Date Remi Andrew MD [address] [place] [address] PCP - General Family Medicine 10/19/16 Pharmacy Operations Manager Relationship Specialty Start Date End Date Remi Andrew MD [address] [place] [address] PCP - General Family Medicine 10/19/16 Pharmacy Operations Manager Relationship Specialty Start Date End Date Remi Andrew MD [address] [place] [address] PCP - General Family Medicine 10/19/16 Pharmacy Operations Manager Relationship Specialty Start Date End Date Remi Andrew MD [address] [place] [address] PCP - General Family Medicine 10/19/16 Pharmacy Operations Manager Relationship Specialty Start Date End Date Remi Andrew MD [address] [place] [address] PCP - General Family Medicine 10/19/16 Pharmacy Operations Manager Relationship Specialty Start Date End Date Remi Andrew MD [address] [place] [address] PCP - General Family Medicine 10/19/16 Pharmacy Operations Manager Relationship Specialty Start Date End Date Remi Andrew MD [address] [place] [address] PCP - General Family Medicine 10/19/16 Pharmacy Operations Manager Relationship Specialty Start Date End Date Remi Andrew MD [address] [place] [address] PCP - General Family Medicine 10/19/16 Team Status: Inactive Member Role Status Dates Remi Andrew MD Primary Care Provider Active Shashi Ornelas , DO Emergency Provider Active Pharmacy Operations Manager Relationship Specialty Start Date End Date Remi Andrew MD [address] [place] [phone] PCP - General Family Medicine 10/19/16 Pharmacy Operations Manager Relationship Specialty Start Date End Date Remi Andrew MD [address] [place] [phone] PCP - General Family Medicine 10/19/16 Pharmacy Operations Manager Relationship Specialty Start Date End Date Remi Andrew MD [address] [place] [phone] PCP - General Family Medicine 10/19/16 Pharmacy Operations Manager Relationship Specialty Start Date End Date Remi Andrew MD [address] [place] [phone] PCP - General Family Medicine 10/19/16 Pharmacy Operations Manager Relationship Specialty Start Date End Date Remi Andrew MD [address] [place] [phone] PCP - General Family Medicine 10/19/16 Pharmacy Operations Manager Relationship Specialty Start Date End Date Remi Andrew MD [address] [place] [address] PCP - General Family Medicine 10/19/16 Pharmacy Operations Manager Relationship Specialty Start Date End Date Remi Andrew MD [address] [place] [phone] PCP - General Family Medicine 10/19/16 Pharmacy Operations Manager Relationship Specialty Start Date End Date Remi Andrew MD [address] [place] [address] PCP - General Family Medicine 10/19/16 Pharmacy Operations Manager Relationship Specialty Start Date End Date Remi Andrew MD [address] [place] [phone] PCP - General Family Medicine 10/19/16 Pharmacy Operations Manager Relationship Specialty Start Date End Date Remi Andrew MD [address] [place] [address] PCP - General Family Medicine 10/19/16 Pharmacy Operations Manager Relationship Specialty Start Date End Date Remi Andrew MD [address] [place] [address] PCP - General Family Medicine 10/19/16 Pharmacy Operations Manager Relationship Specialty Start Date End Date Remi Andrew MD [address] [place] [address] PCP - General Family Medicine 10/19/16 Pharmacy Operations Manager Relationship Specialty Start Date End Date Remi Andrew MD [address] [place] [address] PCP - General Family Medicine 10/19/16 Pharmacy Operations Manager Relationship Specialty Start Date End Date Remi Andrew MD [address] [place] [address] PCP - General Family Medicine 10/19/16 Pharmacy Operations Manager Relationship Specialty Start Date End Date Remi Andrew MD [address] [place] [phone] PCP - General Family Medicine 10/19/16 Pharmacy Operations Manager Relationship Specialty Start Date End Date Remi Andrew MD [address] [place] [address] PCP - General Family Medicine 10/19/16 Pharmacy Operations Manager Relationship Specialty Start Date End Date Remi Andrew MD [address] [place] [phone] PCP - General Family Medicine 10/19/16 Pharmacy Operations Manager Relationship Specialty Start Date End Date Remi Andrew MD [address] [place] [phone] PCP - General Family Medicine 10/19/16 Pharmacy Operations Manager Relationship Specialty Start Date End Date Remi Andrew MD [address] [place] [phone] PCP - General Family Medicine 10/19/16 Pharmacy Operations Manager Relationship Specialty Start Date End Date Remi Andrew MD [address] [place] [address] PCP - General Family Medicine 10/19/16 Pharmacy Operations Manager Relationship Specialty Start Date End Date Remi Andrew MD [address] [place] [address] PCP - General Family Medicine 10/19/16 Pharmacy Operations Manager Relationship Specialty Start Date End Date Remi Andrew MD [address] [place] [phone] PCP - General Family Medicine 10/19/16 Pharmacy Operations Manager Relationship Specialty Start Date End Date Remi Andrew MD [address] [place] [phone] PCP - General Family Medicine 10/19/16 Pharmacy Operations Manager Relationship Specialty Start Date End Date Remi Andrew MD [address] [place] [phone] PCP - General Family Medicine 10/19/16 Pharmacy Operations Manager Relationship Specialty Start Date End Date Remi Andrew MD [address] [place] [address] PCP - General Family Medicine 10/19/16 Pharmacy Operations Manager Relationship Specialty Start Date End Date Remi Andrew MD [address] [place] [phone] PCP - General Family Medicine 10/19/16 Pharmacy Operations Manager Relationship Specialty Start Date End Date Remi Andrew MD [address] [place] [address] PCP - General Family Medicine 10/19/16 Pharmacy Operations Manager Relationship Specialty Start Date End Date Jessa Robles NP [address] [place] [address] PCP - Medical [employer] 01/12/23 Remi Andrew MD [address] [place] [address] PCP - General Family Medicine 12/20/22 Pharmacy Operations Manager Relationship Specialty Start Date End Date Jessa Robles NP [address] [place] [address] PCP - Medical [employer] 01/12/23 Remi Andrew MD [address] [place] [address] PCP - General Family Medicine 12/20/22 Pharmacy Operations Manager Relationship Specialty Start Date End Date Jessa Robles NP [address] [place] [address] PCP - Medical [employer] 01/12/23 Remi Andrew MD [address] [place] [address] PCP - General Family Medicine 12/20/22 Reason for Visit (unrecogniz ed section and content) Reason Comments New Patient Reason Comments medication concern vimpat issues Specialty Diagnoses / Procedures Referred By Contac Referred To Contact MR IMAGING Diagnoses Partial symptomatic epilepsy with complex partial seizures, not intractable, without status epilepticus (HCC) Procedures MRI BRAIN WO IVCON MRI BRAIN BRAIN STEM W/O CONTRAST MATERIAL Robert Marin MD [address] [place] [address] Mr Imaging Referral ID Status Reason Start Date Expiration Date V isits Requested Visits Authorized [id number] Closed Auto-Generate d Referral 12/22/2021 02/05/2022 1 1 Reason Comments medication concern lamical and keppra Reason Comments Seizures Reason Comments Medication Problem AEDs - Shaky, Lighth eaded, Increased Heart Rate Reason Comments Follow Up Reason Comments Medication Problem Patient had severe s ymptoms after first dose of Zonisamide and received care in ED Reason Comments event monitor (zio) Reason Comments Follow Up Reason Comments [facility] Reason Comments Informed Consent [id number] [id number] Reason Comments Nm Pet Request Reason Comments Medication Problem Possible side effect s to medication Reason Comments Radiology MRI Specialty Diagnoses / Procedures Referred By Contac t Referred To Contact MR IMAGING Diagnoses Partial symptomatic epilepsy with complex partial seizures, not intractable, without status epilepticus (HCC) Procedures MRI BRAIN FUNCTIONAL W PHYS WO IVCON MRI BRAIN FUNCTIONAL W/PHYSICIAN ADMNISTRATION TEST SELECT & ADMN FUNCTL BRAIN MAP PHYS/QHP Leena Greenberg PA-C [address] [place] [address] Mr Imaging Referral ID Status Reason Start Date Expiration Date V isits Requested Visits Authorized [id number] Closed Auto-Generate d Referral 08/30/2022 09/29/2023 1 1 Reason Comments Epilepsy Management Conference Reason Comments Follow Up Established Patient Reason Comments New Patient Specialty Diagnoses / Procedures Referred By Andres t Referred To Contact Neurosurgery Diagnoses Partial symptomatic epilepsy with complex partial seizures, not intractable, without status epilepticus (HCC) Procedures CONSULT TO NEUROSURGERY OFFICE/OUTPATIENT NEW HIGH MDM 60-74 MINUTES Robert Marin MD [address] [place] [address] Referral ID Status Reason Start Date Expiration Date V isits Requested Visits Authorized [id number] Closed PCP Requested Referral 10/12/2022 10/12/2023 1 1 Reason Comments Radiology MRI Referral ID Status Reason Start Date Expiration Date V isits Requested Visits Authorized [id number] Closed Auto-Generate d Referral 09/29/2022 10/29/2023 1 1 Reason Comments Schedule Surgery Right SEEG Reason Comments Pre-Op Visit Specialty Diagnoses / Procedures Referred By Andres angulo Referred To Contact ANESTHESIOLOGY Diagnoses Pre op Clearance Procedures COMPLETE PACC Antonella David MD [address] [place] [address] 6, Pacc [address] [place] [address] Referral ID Status Reason Start Date Expiration Date V isits Requested Visits Authorized [id number] Pending Review 11/22/2022 02/20/2023 1 1 Specialty Diagnoses / Procedures Referred By Andres t Referred To Contact MR IMAGING Diagnoses Encounter for other preprocedural examination Partial symptomatic epilepsy with complex partial seizures, not intractable, without status epilepticus (HCC) Preoperative testing Procedures MRI BRAIN LOCALIZATION W IVCON UNLISTED MAGNETIC RESONANCE PROCED Evaristo Torres PA-C [address] [place] [address] Mr Imaging Referral ID Status Reason Start Date Expiration Date V isits Requested Visits Authorized [id number] Closed Auto-Generate d Referral 11/22/2022 11/18/2023 [address] Specialty Diagnoses / Procedures Referred By Edmarac t Referred To Contact CT IMAGING Diagnoses Encounter for other preprocedural examination Partial symptomatic epilepsy with complex partial seizures, not intractable, without status epilepticus (HCC) Preoperative testing Procedures CTA HEAD W IVCON CT ANGIOGRAPHY HEAD W/CONTRAST/NONCONTRAST Evaristo Torres PA-C [address] [id number] Imaging Referral ID Status Reason Start Date Expiration Date V isits Requested Visits Authorized [id number] Closed Auto-Generate d Referral 11/22/2022 11/18/2023 1 1 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 Pre-op Palpitations resolved Specialty Diagnoses / Procedures [facility] To Contact Cardiology Diagnoses Preoperative testing Procedures CONSULT TO CARDIOLOGY OFFICE/OUTPATIENT NEW HIGH MDM 60-74 MINUTES Evaristo Torres PA-C [address] [place] [address] Referral ID Status Reason Start Date Expiration Date V isits Requested Visits Authorized [id number] Closed PCP Requested Referral 10/19/2022 10/19/2023 1 1 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 Reason Comments Schedule Surgery right-sided temporal craniotomy Reason Comments Received Outside Medical Records [facility] Specialty Diagnoses / Procedures Referred By Andres t Referred To Contact MR IMAGING Diagnoses Encounter for other preprocedural examination Partial symptomatic epilepsy with complex partial seizures, not intractable, without status epilepticus (HCC) Preoperative examination Procedures MRI BRAIN LOCALIZATION WO IVCON UNLISTED MAGNETIC RESONANCE PROCED MRI BRAIN BRAIN STEM W/O CONTRAST MATERIAL Evaristo Torres PA-C [address] [place] [address] Mr Imaging Referral ID Status Reason Start Date Expiration Date V isits Requested Visits Authorized [id number] Closed Auto-Generat ed Referral Patient Cleared - Admin/Chairm an/Director advise to proceed 01/10/2023 02/09/2024 1 1 Reason Comments Received Outside Medical Records [facility] Reason Comments Post-Op Visit Reason Onset Date Comments Refill Request 03/17/2023 Reason Onset Date Comments Refill Request 04/20/2023 Reason Comments Mary Anne flanagan my Reason Comments Other [facility] ED calling to speak with Dr. Marin; pt in ED d/t seizures Specialty Diagnoses / Procedures Referred By Contac t Referred To Contact MR IMAGING Diagnoses Partial symptomatic epilepsy with complex partial seizures, not intractable, without status epilepticus (HCC) S/P brain surgery Procedures MRI BRAIN WO IVCON MRI BRAIN BRAIN STEM W/O CONTRAST MATERIAL Claudio Michaels, BLACKSMITH SUPERVISOR.LEVEL VIAL SETTER [address] [place] [id number] Mr Imaging [facility] Referral ID Status Reason Start Date Expiration Date V isits Requested Visits Authorized [id number] Closed Auto-Generate d Referral 03/10/2023 04/08/2024 1 1 Reason Comments Follow Up Reason Comments Patient Update Reason Comments Refill Request Reason Onset Date Comments Refill Request 10/29/2023 Goals (unrecognized section and content) Goals may be documented in a n alternate sectionGoals may be documented in an alternate sectionGoals may be documented in an alternate sectionGoals may be documented in an alternate sectionGoals may be documented in an alternate sectionGoals may be documented in an alternate sectionGoals may be documented in an alternate section No data available for this section FOR RECORDS PERTAINING TO PATIENTS WHO ARE OR HAVE BEEN ENROLLED IN A CHEMICAL DEPENDENCY/SUBSTANCEABUSE PROGRAM, SOME INFORMATION MAY BE OMITTED. This clinical summary was aggregated from multiple sources. Caution should be exercised in using it in the provision of clinical care. This summary normalizes information from multiple sources, and as a consequence, information in this document may materially change the coding, format and clinical context of patient data. In addition, data may be omitted in some cases. CLINICAL DECISIONS SHOULD BE BASED ON THE PRIMARY CLINICAL RECORDS. [employer] provides no warranty or guarantee of the accuracy or completeness of information in this document.
[2023-12-31] MEDS: FAMOTIDINE/PF 20 MG/2 ML VIAL IV (11:47)
[2023-12-31] MEDS: KETOROLAC TROMETHAMINE 30 MG/ML VIAL 15 MG IVP (11:48)
[2023-12-31 11:51] LABS: Basophils Absolute Auto 0.1 10^3/uL (0.0-0.1); Basophils Percent Auto 1.5 % (0.2-2.0); Eosinophils Absolute Auto 0.1 10^3/uL (0.0-0.7); Eosinophils Percent Auto 2.4 % (0.9-7.0); Hematocrit 41.6 % (36.0-48.0); Hemoglobin 13.5 g/dL (12.0-16.0); Immature Granulocytes Abs Auto 0.01 10^3/uL (0.00-0.03); Immature Granulocytes Pct Auto 0.2 % (0.0-0.5); Lymphocytes Absolute Auto 1.7 10^3/uL (1.2-3.8); Lymphocytes Percent Auto 28.5 % (20.5-60.0); Mean Corpuscular HGB Conc 32.5 g/dL (29.9-35.2); Mean Corpuscular Hemoglobin 29.6 pg (26.7-34.0); Mean Corpuscular Volume 91.2 fL (81.0-99.0); Mean Platelet Volume 11.5 fL (9.5-13.5); Monocytes Absolute Auto 0.4 10^3/uL (0.3-0.8); Monocytes Percent Auto 6.5 % (1.7-12.0); Neutrophils Absolute Auto 3.5 10^3/uL (1.4-6.5); Neutrophils Percent Auto 60.9 % (43.0-75.0); Platelet Count 194 10^3/uL (150-450); Red Blood Count 4.56 10^6/uL (4.20-5.40); Red Cell Distribution Width 13.4 % (11.0-15.0); White Blood Count 5.8 10^3/uL (4.0-11.0)
[2023-12-31 12:16] LABS: Alanine Aminotransferase 16 U/L (14-59); Albumin Globulin Ratio 1.3; Albumin Level 4.1 g/dL (3.4-5.0); Alkaline Phosphatase 68 U/L (46-116); Anion Gap 13.8; Aspartate Amino Transferase 10 U/L (15-37); BUN Creatinine Ratio 14.9; Bilirubin Total 0.3 mg/dL (0.2-1.0); Calcium 9.4 mg/dL (8.5-10.1); Chloride 103 mmol/L (98-107); Estimated GFR (African America >60 (>=60); Estimated GFR (Non-African Ame >60 (>=60); Globulin 3.1 g/dL; Glucose 95 mg/dL (74-106); Potassium 3.8 mmol/L (3.5-5.1); Sodium 140 mmol/L (136-145); Total Protein 7.2 g/dL (6.4-8.2)
[2023-12-31 12:18] LABS: HCG Qualitative NEGATIVE (NEGATIVE); Troponin I High Sensitivity 4.4 pg/mL (4.0-51.3)
[2023-12-31 12:32] VITALS: BP 112/70; PULSE 54; O2SAT 99
== END 2023-12-31 12:32 | disposition home or self-care (01) ==
PROVIDERS: Emergency Provider Emergency Medicine; PCP Family Medicine
DX: M94.0 Chondrocostal junction syndrome [Tietze] (principal); K21.9 Gastro-esophageal reflux disease without esophagitis; Z79.899 Other long term (current) drug therapy
CPT/HCPCS: 36415; 71045; 80053; 84484; 84703; 85025; 93005; 96374; 96375; 99285

== ENCOUNTER 2024-08-01 18:10 | Emergency (ER) | payer OTHER, MEDICAID, SELFPAY ==
[2024-08-01 18:19] VITALS: BP 118/68; PULSE 66; TEMP 36.7; O2SAT 99; BMI 26.4
--- NOTE | 2024-08-01 19:17 | ED.EXTPRO1 ---
HPI - Extremity Problem General Chief complaint: Extremity Problem, Nontraumatic Stated complaint: UE PAIN Time Seen by Provider: 08/01/24 18:48 Source: patient Mode of arrival: walk-in History of Present Illness HPI Narrative: 23-year-old male presents to the emergency department for a rash on the palm of her left hand. This morning about 10 AM she came into contact with her crushed pills. She has been taking these pills and crushing them and coming into contact with them for an extended period of time and this is never happened. She did not come into contact with anything else. She is newly , 5 or 6 weeks. No vaginal bleeding but she has had some slight cramping on the right side of her abdomen. She also had some cramping in the left upper quadrant as well and has not been constipated. No dysuria or hematuria and has not had any vaginal bleeding. She does not complain of abdominal pain now. Related Data Home Medications ?Medication ?Instructions ?Recorded ?Confirmed brivaracetam 100 mg tablet 100 mg PO BID 09/14/23 12/31/23 (Briviact) Previous Rx's ?Medication ?Instructions ?Recorded famotidine 20 mg tablet (Pepcid) 20 mg PO BID #10 tabs 12/31/23 meloxicam 15 mg tablet 15 mg PO DAILY PRN pain #10 tabs 12/31/23 Allergies Allergy/AdvReac Type Severity Reaction Status Date / Time Iodinated Contrast Media Allergy Severe Verified 09/14/23 20:53 morphine Allergy Severe Verified 09/14/23 20:53 zonisamide Allergy Severe Verified 09/14/23 20:53 Review of Systems ROS Narrative A ten point review of systems is negative except as noted above. PFSH PFSH Social History Little interest or pleasure in doing things: not at all Feeling down, depressed, or hopeless: not at all Exam Narrative Exam Narrative: Nurses note and vital signs reviewed and patient is not hypoxic. General: The patient appears well and in no apparent distress. Patient is resting comfortably on cart. Skin: Warm, dry, no pallor noted. There is erythema on the distal aspect of the left palm at the MCP joint areas. It is not raised or palpable and there is no fluctuance or open area or drainage. Head: Normocephalic, atraumatic Eye: Normal conjunctiva, no drainage Ears, Nose, Mouth, and Throat: oral mucosa is moist. Nares patent. Cardiovascular: Regular Rate and Rhythm Respiratory: Patient is in no distress, no accessory muscle use Back: non-tender GI: Soft and nontender, no masses or distention Musculoskeletal: The patient has no evidence of calf tenderness, no pitting edema, symmetrical pulses noted bilaterally Neurological: A&O, normal speech Psychiatric: Cooperative Constitutional Vital Signs, click to edit/add: Last Vital Signs Temp 98.1 F 08/01/24 18:19 Pulse 66 08/01/24 18:19 Resp 16 08/01/24 18:19 BP 118/68 08/01/24 18:19 Pulse Ox 99 08/01/24 18:19 O2 Del Method Room Air 08/01/24 18:19 Course Vital Signs Vital signs: Vital Signs Temperature 98.1 F 08/01/24 18:19 Pulse Rate 66 08/01/24 18:19 Respiratory Rate 16 08/01/24 18:19 Blood Pressure 118/68 08/01/24 18:19 Pulse Oximetry 99 08/01/24 18:19 Oxygen Delivery Method Room Air 08/01/24 18:19 Temperature 98.1 F 08/01/24 18:19 Pulse Rate 66 08/01/24 18:19 Respiratory Rate 16 08/01/24 18:19 Blood Pressure 118/68 08/01/24 18:19 Pulse Oximetry 99 08/01/24 18:19 Oxygen Delivery Method Room Air 08/01/24 18:19 MDM - Extremity (Nontraumatic) MDM Narrative Medical decision making narrative: Urinalysis is negative. Have no clinical suspicion of ectopic in this patient. She has her first obstetrics appointment in a few days and she will keep that appointment. She was advised to return if she develops vaginal bleeding. In terms of the rash my clinical impression is that this is a contact dermatitis and she was recommended [id number] hydrocortisone and to avoid contact with her medication that appears to have caused it. Treatment diagnosis and follow-up were discussed with the patient. Differential Diagnosis Differential diagnosis: Likely other (Contact dermatitis, nonspecific rash) Lab Data Labs: Lab Results 08/01/24 Range/Units 19:15 Urine Color Yellow (YELLOW) Urine Clarity Clear (CLEAR) Urine pH 6.5 (5.0-9.0) Ur Specific [place] 1.025 (1.005-1.025) Urine Protein Negative (NEG/TRACE) mg/dL Urine Glucose (UA) Negative (NEGATIVE) mg/dL Urine Ketones 15 A (NEGATIVE) mg/dL Urine Occult Blood Negative (NEGATIVE) Urine Nitrite Negative (NEGATIVE) Urine Bilirubin Negative (NEGATIVE) Urine Urobilinogen 0.2 (0.2-1.0) EU/dL Ur Leukocyte Esterase Negative (NEGATIVE) Urine RBC None seen (0-2) #/HPF Urine WBC 0-2 A (NONE SEEN) #/HPF Ur Squamous Epith Cells Moderate A (NONE/RARE) #/LPF Urine Crystals None seen (None Seen) #/HPF Amorphous Sediment Moderate Urine Bacteria Trace A (NONE SEEN) #/HPF Urine Casts None seen (NONE SEEN) #/LPF Urine Mucus Small A (NONE SEEN) Discharge Plan Discharge Chief Complaint: Extremity Problem, Nontraumatic Clinical Impression: Contact dermatitis Patient Disposition: Home, Self-Care Time of Disposition Decision: 19:40 Condition: Good Mode of Transportation: Private Vehicle Prescriptions / Home Meds: No Action Briviact 100 mg tablet 100 mg PO BID famotidine [Pepcid] 20 mg tablet 20 mg PO BID Qty: 10 0RF meloxicam 15 mg tablet 15 mg PO DAILY PRN (Reason: pain ) Qty: 10 0RF Print Language: Kyrgyz Instructions: Contact Dermatitis (ED) Additional Instructions: Use [id number] hydrocortisone for the rash. Referrals: HINA BAILEY [Primary Care Provider] - 1 week
[2024-08-01 19:28] LABS: Bilirubin Urine NEGATIVE (NEGATIVE); Blood Urine NEGATIVE (NEGATIVE); Clarity Urine CLEAR (CLEAR); Glucose Urine UA NEGATIVE (NEGATIVE); Ketones Urine 15 mg/dL (NEGATIVE); Leukocyte Esterase Urine NEGATIVE (NEGATIVE); Nitrite Urine NEGATIVE (NEGATIVE); Protein Urine NEGATIVE (NEG/TRACE); Specific Gravity Urine 1.025 (1.005-1.025); Urobilinogen Urine 0.2 EU/dL (0.2-1.0); pH Urine 6.5 (5.0-9.0)
[2024-08-01 19:29] LABS: Color Urine YELLOW (YELLOW)
[2024-08-01 19:36] LABS: Amorphous Sediment Urine MODERATE; Bacteria Urine TRACE #/HPF (NONE SEEN); Cast Seen? NONE SEEN #/LPF (NONE SEEN); Crystals Seen? None Seen #/HPF (None Seen); Mucus Urine SMALL (NONE SEEN); RBC Urine NONE SEEN #/HPF (0-2); Squamous Epithelial Cell Urine MODERATE #/LPF (NONE/RARE); WBC Urine 0-2 #/HPF (NONE SEEN)
[2024-08-01 19:54] VITALS: BP 116/71; PULSE 74; O2SAT 97
== END 2024-08-01 19:54 | disposition home or self-care (01) ==
PROVIDERS: Emergency Provider Emergency Medicine; PCP Family Medicine
DX: O99.711 Diseases of the skin and subcutaneous tissue complicating pregnancy, first trimester (principal); L25.9 Unspecified contact dermatitis, unspecified cause; Z3A.01 Less than 8 weeks gestation of pregnancy
CPT/HCPCS: 81001; 99283

== ENCOUNTER 2024-08-02 18:43 | Emergency (ER) | payer OTHER, MEDICAID, SELFPAY ==
[2024-08-02 18:46] VITALS: BP 141/85; PULSE 89; TEMP 37.1; O2SAT 98; BMI 26.4
--- OUTSIDE RECORDS SUMMARY | 2024-08-02 18:51 | XMS_ITS | CCD ---
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 Order #: [id number]: 1 Prescriptions as of 07/25/2024 - brivaracetam (BRIVIACT) 100 mg tablet Take 1 tablet by mouth two times a day for 90 days. - mirtazapine (REMERON) 15 mg tablet TAKE 1 TABLET BY MOUTH EVERYDAY AT BEDTIME - escitalopram oxalate (LEXAPRO) 20 mg tablet TAKE 1 TABLET BY MOUTH EVERY DAY - folic acid 1 mg tablet Take 2 tablets by mouth once daily. 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] 12/01/2022 S/P brain surgery [Z98.890] 12/03/2022 Acute embolism and thrombosis of left axillary *12/20/2022 Blood clot of axillary vein in shoulder area, l*12/20/2022 Swelling in left armpit [M79.89] 12/21/2022 12/22/2022 Acute cystitis [N30.00] 12/23/2022 Acute deep vein thrombosis (DVT) of brachial ve*12/23/2022 Marijuana use [F12.90] 01/24/2023 Acute post-operative pain [G89.18] 01/30/2023 Encounter Status:Closed by ALBIN MAJOR on 07/25/24 [facility] CNPNon 05-31-2024 CNPN Telephone (NE50MN) KWASI HEBERT ([id number]) 4 F Date Time Provider Department 05/31/24 ROBERT MARIN NE50MN During your visit today, we recorded the following information about you: Saurabh Kathy 05/31/2024 12:24 PM Signed Form received: From (agency / facility): BMV certified personal finance counselor (if given): Kwasi Hebert Phone #: [phone] (home) Fax # : [phone] Information requested: Request for physician statement Patient of Dr. Marin Forwarded to nurse. Tahira Colunga RN 05/31/2024 2:05 PM Signed Last visit: 07/24/23 Next visit: 06/10/24 ASM: NEEDS VERIFIED WITH PATIENT Oxcarbazepine 600mg AM and 900mg PM Last labs: 2022 Seizure onset: 6 yrs ago Last seizure: NEEDS VERIFIED WITH PATIENT Call to pt no answer, msg left. [employer] message sent. CHERYL Pedraza Lynn, CHERYL 06/03/2024 9:16 AM Signed Appointment 06/10/24 CHERYL Gray Lynn, CHERYL 06/10/2024 11:24 AM Signed Patient cleared for driving from Dr. Marin in appointment today. BMV form completed and routed to Dr. Marin for signature thru docusign One copy faxed to [facility] [place] One copy faxed to [facility] One copy emailed to patient, email on file Albin Major RN Allergies As of Date: 05/31/2024 Noted Allergy Reaction ZONISAMIDE 04/07/2022 1 - Mental Status Change 8 - GI Upset 11 - Vomiting 12 - Shortness of Breath Comments: Blurred/ double vision Numbing in most of body IODINATED CONTRAST MEDIA 10/19/2016 4 - Hives 9 - Itching MORPHINE 12/22/2021 5 - Intolerance Comments: Head Date Reviewed: 01/30/2023 Reviewed by: Angella Ambrose RN - Fully Assessed Reason for Visit: Forms [913] Cmt: [facility] Prescriptions as of 06/10/2024 - folic acid 1 mg tablet Take 2 tablets by mouth once daily. - brivaracetam (BRIVIACT) 100 mg tablet Take 1 tablet by mouth two times a day for 90 days. - escitalopram oxalate (LEXAPRO) 20 mg tablet Take 1 tablet by mouth once daily. - mirtazapine (REMERON) 15 mg tablet Take 1 tablet by mouth daily at bedtime. 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] 12/01/2022 S/P brain surgery [Z98.890] 12/03/2022 Acute embolism and thrombosis of left axillary *12/20/2022 Blood clot of axillary vein in shoulder area, l*12/20/2022 Swelling in left armpit [M79.89] 12/21/2022 12/22/2022 Acute cystitis [N30.00] 12/23/2022 Acute deep vein thrombosis (DVT) of brachial ve*12/23/2022 Marijuana use [F12.90] 01/24/2023 Acute post-operative pain [G89.18] 01/30/2023 Encounter Status:Closed by TAHIRA COLUNGA on 05/31/24 [facility] Alanine aminotransferase [En zymatic activity/volume] in Serum or PlasmaOrdered By: Christie Aldana on 03-28-2024 ALT [Catalytic activity/Vol] 12 U/L Normal 7-52 [facility] Comment on above: Performed By: #### T SH3, T4F, CBC, CMP, B12, LIPID, [id number] #### [facility] [address] [place] [address] [place] Albumin [Mass/volume] in Ser um or Plasma by Bromocresol green (BCG) dye binding methoOrdered By: Christie Aldana on 03-28-2024 Albumin BCG dye [Mass/Vol] 4.6 g/dL 3.5-5.7 [facility] Alkaline phosphatase [Enzyma tic activity/volume] in Serum or PlasmaOrdered By: Christie Aldana on 03-28-2024 ALP [Catalytic activity/Vol] 59 U/L Normal 34-104 [facility] Comment on above: Performed By: #### T SH3, T4F, CBC, CMP, B12, LIPID, [id number] #### [facility] [address] [place] [address] [place] Aspartate aminotransferase [ Enzymatic activity/volume] in Serum or PlasmaOrdered By: Christie Aldana on 03-28-2024 AST [Catalytic activity/Vol] 15 U/L Normal 13-39 [facility] Comment on above: Performed By: #### T SH3, T4F, CBC, CMP, B12, LIPID, [id number] #### [address] Automated basophil %Ordered By: Christie Aldana on 03-28-2024 Basophils/100 WBC (Bld) 1.2 % Normal . [facility] Comment on above: Performed By: #### T SH3, T4F, CBC, CMP, B12, LIPID, [id number] #### [address] Automated basophil countOrde red By: Christie Aldana on 03-28-2024 Basophils (Bld) [#/Vol] 0.1 10*3/uL Normal 0.0-0.2 [facility] Comment on above: Result Comment: PERF ORMED BY: [place] [address] PATHOLOGIST PHLEBOTOMIST PRN JUAN GALVEZ M.D. Performed By: #### T SH3, T4F, CBC, CMP, B12, LIPID, [id number] #### [address] Automated blood monocyte cou ntOrdered By: Christie Aldana on 03-28-2024 Monocytes (Bld) [#/Vol] 0.3 10*3/uL Normal 0.0-0.8 [facility] Comment on above: Performed By: #### T SH3, T4F, CBC, CMP, B12, LIPID, [id number] #### [address] Automated eosinophil %Ordere d By: Christie Aldana on 03-28-2024 Eosinophils/100 WBC (Bld) 3.7 % Normal . [facility] Comment on above: Performed By: #### T SH3, T4F, CBC, CMP, B12, LIPID, [id number] #### [address] Automated eosinophil countOr dered By: Christie Aldana on 03-28-2024 Eosinophils (Bld) [#/Vol] 0.2 10*3/uL Normal 0.0-0.45 [facility] Comment on above: Performed By: #### T SH3, T4F, CBC, CMP, B12, LIPID, [id number] #### [address] Automated monocyte %Ordered By: Christie Aldana on 03-28-2024 Monocytes/100 WBC (Bld) 7.4 % Normal . [facility] Comment on above: Performed By: #### T SH3, T4F, CBC, CMP, B12, LIPID, [id number] #### [address] Automated neutrophil %Ordere d By: Christie Aldana on 03-28-2024 Neutrophils/100 WBC (Bld) 51.7 % Normal . [facility] Comment on above: Performed By: #### T SH3, T4F, CBC, CMP, B12, LIPID, [id number] #### [facility] [address] Bilirubin.total [Mass/volume ] in Serum or PlasmaOrdered By: Christie Aldana on 03-28-2024 Bilirubin [Mass/Vol] 0.4 mg/dL Normal 0.3-1.0 [facility] Comment on above: Performed By: #### T SH3, T4F, CBC, CMP, B12, LIPID, [id number] #### [facility] [address] [place] [address] Calcium [Mass/volume] in Ser um or PlasmaOrdered By: Christie Aldana on 03-28-2024 Calcium [Mass/Vol] 9.6 mg/dL Normal 8.6-10.3 [facility] Comment on above: Performed By: #### T SH3, T4F, CBC, CMP, B12, LIPID, [id number] #### [facility] [address] Carbon dioxide, total [Moles /volume] in Serum or PlasmaOrdered By: Christie Aldana on 03-28-2024 CO2 [Moles/Vol] 32.0 mmol/L High 21.0-31.0 [facility] Comment on above: Performed By: #### T SH3, T4F, CBC, CMP, B12, LIPID, [id number] #### [facility] [address] [place] [id number] [place] Chloride [Moles/volume] in S nury or PlasmaOrdered By: Christie Aldana on 03-28-2024 Chloride [Moles/Vol] 104 mmol/L Normal 98-107 [facility] Comment on above: Performed By: #### T SH3, T4F, CBC, CMP, B12, LIPID, [id number] #### [facility] [address] Cholesterol [Mass/volume] in Serum or PlasmaOrdered By: Christie Aldana on 03-28-2024 Cholesterol [Mass/Vol] 171 mg/dL Normal 140-200 [facility] Comment on above: Chol less than 200 m g/dl low riskChol 201-239 mg/dl borderline riskChol 240 mg/dl and greater high risk Result Comment: Chol less than 200 mg/dl low risk Chol 201-239 mg/dl borderline risk Chol 240 mg/dl and greater high risk Performed By: #### T SH3, T4F, CBC, CMP, B12, LIPID, [id number] #### [facility] [address] [place] [address] [facility] Cholesterol in LDL Calc [Mas s/Vol]Ordered By: Christie Aldana on 03-28-2024 Cholesterol in LDL [Mass/Vol] 118 mg/dL High 0-100 [facility] Comment on above: LDL ATP III CLASSIFI CATIONLDL less than 100 mg/dL OptimalLDL 100-129 mg/dL Near or above optimalLDL 130-159 mg/dL Borderline highLDL 160-189 mg/dL HighLDL greater than 189 mg/dL Very high Cholesterol in VLDL Calc [Ma ss/Vol]Ordered By: Christie Aldana on 03-28-2024 Cholesterol in VLDL [Mass/Vol] 12 mg/dL [facility] Complete Blood Count Auto Di ffon 03-28-2024 Mean Corpuscular HGB Conc 33.0 g/dL Normal 32.0-35.[address] [facility] Comment on above: Performed By: #### T SH3, T4F, CBC, CMP, B12, LIPID, [id number] #### [facility] [address] [place] [address] [facility] NRBC% 0.1 /100{WBC} Normal 0-0.[address] [facility] Comment on above: Performed By: #### T SH3, T4F, CBC, CMP, B12, LIPID, [id number] #### [facility] [address] [place] [address] [facility] Comprehensive Metabolic Pane manjit 03-28-2024 Albumin [Mass/Vol] 4.6 g/dL Normal 3.5-5.[address] [facility] Comment on above: Performed By: #### T SH3, T4F, CBC, CMP, B12, LIPID, [id number] #### [address] GFR/1.73 sq M.predicted MDRD (S/P/Bld) [Vol rate/Area] mL/min/{1.73_m2} Normal [facility] Comment on above: Performed By: #### T SH3, T4F, CBC, CMP, B12, LIPID, [id number] #### [address] Creatinine [Mass/volume] in Serum or PlasmaOrdered By: Christie Aldana on 03-28-2024 Creatinine [Mass/Vol] 0.92 mg/dL Normal 0.60-1.20 [facility] Comment on above: Performed By: #### T SH3, T4F, CBC, CMP, B12, LIPID, [id number] #### [address] Erythrocyte distribution wid th [Ratio] by Automated countOrdered By: Christie Aldana on 03-28-2024 Erythrocyte distribution width (RBC) [Ratio] 13.9 % Normal 11.9-15.3 [facility] Comment on above: Performed By: #### T SH3, T4F, CBC, CMP, B12, LIPID, [id number] #### [address] Erythrocytes [#/volume] in B lood by Automated countOrdered By: Christie Aldana on 03-28-2024 RBC (Bld) [#/Vol] 4.63 10*6/uL Normal 3.60-5.00 [facility] Comment on above: Performed By: #### T SH3, T4F, CBC, CMP, B12, LIPID, [id number] #### [address] Glucose [Mass/volume] in Ser um or PlasmaOrdered By: Christie Aldana on 03-28-2024 Glucose [Mass/Vol] 80 mg/dL Normal 70-100 [facility] Comment on above: ADA recommended refe rence rangeRandom Glucose Reference Range is dependent on time and content of last meal. Glucose of more than 200 mg/dL in a nonstressed, ambulatory subject supports the diagnosis of Diabetes Mellitus. Result Comment: Lenore om Glucose Reference Range is dependent on time and content of last meal. Glucose of more than 200 mg/dL in a nonstressed, ambulatory subject supports the diagnosis of Diabetes Mellitus. ADA recommended reference range Performed By: #### T SH3, T4F, CBC, CMP, B12, LIPID, [id number] #### [facility] [address] Hematocrit [Volume Fraction] of Blood by Automated countOrdered By: Christie Aldana on 03-28-2024 Hematocrit (Bld) [Volume fraction] 41.6 % Normal 34.0-46.4 [facility] Comment on above: Performed By: #### T SH3, T4F, CBC, CMP, B12, LIPID, [id number] #### [address] Hemoglobin [Mass/volume] in BloodOrdered By: Christie Aldana on 03-28-2024 Hemoglobin (Bld) [Mass/Vol] 13.7 g/dL Normal 11.8-15.4 [facility] Comment on above: Performed By: #### T SH3, T4F, CBC, CMP, B12, LIPID, [id number] #### [facility] [address] [place] [address] Leukocytes [#/volume] correc deni for nucleated erythrocytes in Blood by Automated counOrdered By: Christie Aldana on 03-28-2024 WBC corrected for nucl RBC Auto (Bld) [#/Vol] 4.5 10*3/uL 3.8-11.6 [facility] Leukocytes [#/volume] in Blo od by Automated countOrdered By: Christie Aldana on 03-28-2024 WBC (Bld) [#/Vol] 4.5 10*3/uL Normal 3.8-11.6 [facility] Comment on above: Performed By: #### T SH3, T4F, CBC, CMP, B12, LIPID, [id number] #### [facility] [address] [place] [address] [facility] Lipid Panelon 03-28-2024 LDL Cholesterol,Calculated 118 mg/dL High 0-[address] [facility] Comment on above: Result Comment: LDL ATP III CLASSIFICATION LDL less than 100 mg/dL Optimal LDL 100-129 mg/dL Near or above optimal LDL 130-159 mg/dL Borderline high LDL 160-189 mg/dL High LDL greater than 189 mg/dL Very high Performed By: #### T SH3, T4F, CBC, CMP, B12, LIPID, [id number] #### [facility] [address] Triglyceride w/Reflex 63 mg/dL Normal 0-[address] [facility] Comment on above: Result Comment: TRIG ATP III CLASSIFICATION TRIG less than 150 mg/dL Normal TRIG 150-199 mg/dL Borderline high TRIG 200-500 mg/dL High TRIG greater than 500 mg/dL Very high Standard traceable to the Center for Disease Conrtrol and Prevention (CDC) test method. Performed By: #### T SH3, T4F, CBC, CMP, B12, LIPID, [id number] #### [facility] [address] VLDL CHOLESTEROL 12 mg/dL Normal [facility] Comment on above: Performed By: #### T SH3, T4F, CBC, CMP, B12, LIPID, [id number] #### [facility] [address] [place] [address] [place] Lymphocytes [#/volume] in Bl ood by Automated countOrdered By: Christie Aldana on 03-28-2024 Lymphocytes (Bld) [#/Vol] 1.6 10*3/uL Normal 1.00-4.8 [facility] Comment on above: Performed By: #### T SH3, T4F, CBC, CMP, B12, LIPID, [id number] #### [facility] [address] [place] [address] [place] Lymphocytes/100 leukocytes i n Blood by Automated countOrdered By: Christie Aldana on 03-28-2024 Lymphocytes/100 WBC (Bld) 36.0 % Normal . [facility] Comment on above: Performed By: #### T SH3, T4F, CBC, CMP, B12, LIPID, [id number] #### [facility] [address] MCH [Entitic mass] by Automa deni countOrdered By: Christie Aldana on 03-28-2024 MCH (RBC) [Entitic mass] 29.7 pg Normal 24.7-34.3 [facility] Comment on above: Performed By: #### T SH3, T4F, CBC, CMP, B12, LIPID, [id number] #### [facility] [address] MCHC Auto (RBC) [Mass/Vol]Or dered By: Christie Aldana on 03-28-2024 MCHC (RBC) [Mass/Vol] 33.0 g/dL 32.0-35.0 [facility] MCV [Entitic volume] by Auto mated countOrdered By: Christie Aldana on 03-28-2024 MCV (RBC) [Entitic vol] 89.9 fL Normal 80-100 [facility] Comment on above: Performed By: #### T SH3, T4F, CBC, CMP, B12, LIPID, [id number] #### [address] Neutrophils [#/volume] in Bl ood by Automated countOrdered By: Christie Aldana on 03-28-2024 Neutrophils (Bld) [#/Vol] 2.3 10*3/uL Normal 1.8-7.7 [facility] Comment on above: Performed By: #### T SH3, T4F, CBC, CMP, B12, LIPID, [id number] #### [facility] [address] [place] [address] No Panel InformationOrdered By: Christie Aldana on 03-28-2024 Estimated GFR (CKD-EPI) > 60.0 mL/Min [facility] Creatinine Clearance (Chem N/A [facility] Nucleated erythrocytes [Pres ence] in Blood by Automated countOrdered By: Christie Aldana on 03-28-2024 Nucleated RBC Auto Ql (Bld) 0.1 /100{WBC} 0-0.5 [facility] Platelet mean volume [Entiti c volume] in Blood by Automated countOrdered By: Christie Aldana on 03-28-2024 Platelet mean volume (Bld) [Entitic vol] 9.5 fL Normal 6.3-10.7 [facility] Comment on above: Performed By: #### T SH3, T4F, CBC, CMP, B12, LIPID, [id number] #### [facility] [address] Platelets [#/volume] in Bloo d by Automated countOrdered By: Christie Aldana on 03-28-2024 Platelets (Bld) [#/Vol] 201 10*3/uL Normal 150-450 [facility] Comment on above: Performed By: #### T SH3, T4F, CBC, CMP, B12, LIPID, [id number] #### [facility] [address] Potassium [Moles/volume] in Serum or PlasmaOrdered By: Christie Aldana on 03-28-2024 Potassium [Moles/Vol] 4.4 mmol/L Normal 3.5-5.1 [facility] Comment on above: Performed By: #### T SH3, T4F, CBC, CMP, B12, LIPID, [id number] #### [facility] [address] [place] [address] Protein [Mass/volume] in Ser um or PlasmaOrdered By: Christie Aldana on 03-28-2024 Protein [Mass/Vol] 6.8 g/dL Normal 6.4-8.9 [facility] Comment on above: Performed By: #### T SH3, T4F, CBC, CMP, B12, LIPID, [id number] #### [address] Serum globulin measurement b y calculation (mass/volume)Ordered By: Christie Aldana on 03-28-2024 Globulin (S) [Mass/Vol] 2.2 g/dL Normal [facility] Comment on above: Performed By: #### T SH3, T4F, CBC, CMP, B12, LIPID, [id number] #### [facility] [address] Serum or plasma albumin/glob ulin mass ratioOrdered By: Christie Aldana on 03-28-2024 Albumin/Globulin [Mass ratio] 2.1 {ratio} Normal [facility] Comment on above: Performed By: #### T SH3, T4F, CBC, CMP, B12, LIPID, [id number] #### [facility] [address] [place] [address] Serum or plasma anion gap de terminationOrdered By: Christie Aldana on 03-28-2024 Anion gap [Moles/Vol] 8.4 mmol/L Normal 6.0-15.0 [facility] Comment on above: Performed By: #### T SH3, T4F, CBC, CMP, B12, LIPID, [id number] #### [facility] [address] [place] [address] Serum or plasma high density lipoprotein (HDL) cholesterol measurementOrdered By: Christie Aldana on 03-28-2024 Cholesterol in HDL [Mass/Vol] 40 mg/dL Normal 23-92 [facility] Comment on above: HDL CHOL ATP-III CLA SSIFICATION Cardiovascular RiskHDL > or equal to 60 mg/dL LOWHDL < 40 mg/dL HIGH Result Comment: HDL CHOL ATP-III CLASSIFICATION Cardiovascular Risk HDL > or equal to 60 mg/dL LOW HDL < 40 mg/dL HIGH Performed By: #### T SH3, T4F, CBC, CMP, B12, LIPID, [id number] #### [facility] [address] [place] [address] Serum or plasma total choles terol/high density lipoprotein (HDL) cholesterol mass ratOrdered By: Christie Aldana on 03-28-2024 Cholesterol.total/Choles terol in HDL [Mass ratio] 4.3 {ratio} Normal <5.0 [facility] Comment on above: Performed By: #### T SH3, T4F, CBC, CMP, B12, LIPID, [id number] #### [facility] [address] [place] [address] [place] Sodium [Moles/volume] in Ser um or PlasmaOrdered By: Christie Aldana on 03-28-2024 Sodium [Moles/Vol] 140 mmol/L Normal 136-145 [facility] Comment on above: Performed By: #### T SH3, T4F, CBC, CMP, B12, LIPID, [id number] #### [facility] [address] [place] [address] Thyrotropin [Units/volume] i n Serum or PlasmaOrdered By: Christie Aldana on 03-28-2024 TSH Qn 1.25 m[IU]/L Normal 0.45-5.33 [facility] Comment on above: Performed By: #### T SH3, T4F, CBC, CMP, B12, LIPID, [id number] #### [facility] [address] [place] [address] Thyroxine (T4) free [Mass/vo lume] in Serum or PlasmaOrdered By: Christie Aldana on 03-28-2024 Free T4 [Mass/Vol] 0.92 ng/dL Normal 0.61-1.12 [facility] Comment on above: Performed By: #### T SH3, T4F, CBC, CMP, B12, LIPID, [id number] #### [facility] [address] [place] [address] [place] Triglyceride [Mass/volume] i n Serum or PlasmaOrdered By: Christie Aldana on 03-28-2024 Triglyceride [Mass/Vol] 63 mg/dL 0-149 [facility] Comment on above: TRIG ATP III CLASSIF ICATIONTRIG less than 150 mg/dL NormalTRIG 150-199 mg/dL Borderline highTRIG 200-500 mg/dL High TRIG greater than 500 mg/dL Very highStandard traceable to the Center for Disease Conrtrol and Prevention (CDC) test method. Urea nitrogen [Mass/volume] in Serum or PlasmaOrdered By: Christie Aldana on 03-28-2024 Urea nitrogen [Mass/Vol] 15 mg/dL Normal 7-25 [facility] Comment on above: Performed By: #### T SH3, T4F, CBC, CMP, B12, LIPID, [id number] #### [facility] [address] Vitamin B12 ser/plasOrdered By: Christie Aldana on 03-28-2024 Cobalamin (Vitamin B12) [Mass/Vol] 320 pg/mL Normal 180-914 [facility] Comment on above: Performed By: #### T SH3, T4F, CBC, CMP, B12, LIPID, [id number] #### [facility] [address] Vitamin D 25 Hydroxy Totalon 03-28-2024 Vitamin D 25 Hydroxy Total 28.7 ng/mL Low 30-[address] [facility] Comment on above: Result Comment: HARITHA MIN D STATUS 25(OH)VITAMIN D RANGE (ng/mL) Deficient <20 Insufficient 20 to <30 Sufficient 30 to 100 Reference: Nish Moreno, Veda CANNON, et al. Evaluation,treatment, and prevention of vitamin D deficiency; an Endocrine Society clinical practice guideline. JCEM. 2010; 96(7):1911-30. PERFORMED BY: [place] [address] PATHOLOGIST PHLEBOTOMIST PRN JUAN GALVEZ M.D. Performed By: #### T SH3, T4F, CBC, CMP, B12, LIPID, [id number] #### [facility] [address] [place], [place] [id number] [facility] Vitamin D+Metabolites [Mass/ volume] in Serum or PlasmaOrdered By: Christie Aldana on 03-28-2024 Vitamin D+Metabolites [Mass/Vol] 28.7 ng/mL Low 30-100 [facility] Comment on above: VITAMIN D STATUS 25( [place])VITAMIN D RANGE (ng/mL) Deficient <20 Insufficient 20 to <30Sufficient 30 to 100Reference: Nish Moreno, Veda CANNON, et al. Evaluation,treatment, and prevention of vitamin D deficiency; an Endocrine Society clinical practice guideline. JCEM. 2010; 96(7):1911-30. PAP [id number] 10-30-2023 C. trachomatis rRNA CHARLINE+probe Ql (Cvx) Negative Invalid Interpretation Code Negative [facility] Comment on above: Performed By: #### 3 [id number] #### [facility] [address] [place] [address] Cytology report Cyto stain Doc (Cvx/Vag) Note Invalid Interpretation Code [facility] Comment on above: Result Comment: TEST S RESULT FLAG UNITS REF RANGE LAB Clinician Provided Cytology Information Source.............[employer] Other..............Other No. of containers..01 ThinPrep Vial DIAGNOSIS: 01 NEGATIVE FOR INTRAEPITHELIAL LESION OR MALIGNANCY. Specimen adequacy: 01 Satisfactory for evaluation. Endocervical and/or squamous metaplastic cells (endocervical component) are present. Performed by: Bailee Benítez, Supervisory Oracle Application Consultant (ASCP) . 01 Note: Note 01 The [...] Low,>-Panic High,A-Abnormal,AA-Critical Abnormal Performed at: 01 [address] [facility] [address] [place] [id number] Sara Estes MD, Performed By: #### 3 [id number] #### [facility] [address] [id number] N. gonorrhoeae rRNA CHARLINE+probe Ql (Cvx) Negative Invalid Interpretation Code Negative [facility] Comment on above: Result Comment: Perf ormed at: WB [facility] [place] [address] [place], [place] [id number] MD Meera Ruiz Performed at: =G [facility] [place] [address] [place], [place] [id number] MD Meera Ruiz Performed By: #### 3 [id number] #### [facility] [address] [place] [address] PAP [phone] 10-25-2023 Collection Technique BRUSH-SPATULA Normal F [facility] Comment on above: Performed By: #### 3 [id number] #### [facility] [address] [id number] Gynecological Body Site ENDOCERVIX Normal [facility] Comment on above: Performed By: #### 3 [id number] #### [facility] [address] [id number] Other Patient Information [id number] Normal [facility] Comment on above: Performed By: #### 3 [id number] #### [facility] [address] [place] [address] Previous Cytology Negative Normal [facility] Comment on above: Performed By: #### 3 [id number] #### [facility] [address] [place] [address] Previous Treatment NONE Normal [facility] Comment on above: Performed By: #### 3 [id number] #### [facility] [address] [id number] Physician Orderon 03-13-2024 Physician Order [id number]# 1.00TIFF Melchor [facility] Viktor 09-14-2023 CNPN Telephone (NE50MN) KWASI HEBERT ([id number]) 4 F Date Time Provider Department 09/14/23 ROBERT MARIN NE50MN During your visit today, we recorded the following information about you: Karen Melgar 09/14/2023 2:43 PM Signed General call : Full name of person calling: Kwasi Hebert Relationship to patient: Self Phone # : [phone] Reason for call: Dizzy, unable to get up in the morning. Qpyn is not working. Possibly having focal seizures Patient of Amena Richardson 09/15/2023 9:00 AM Signed Please call back to discuss her medication. Patient believes she may have had focal seizures yesterday lasting about 1.5 minutes. She went to the emergency room care. She has a UTI. Patient can be reached at [phone]. Albin Major RN 09/15/2023 1:40 PM Signed Spoke with patient. She reports being diagnosed with UTI today. I explained this being a trigger for seizures. Recommended she continue with medications, begin the antibiotics and stay hydrated. Call office to report seizures She verbalized understanding Albin Major RN Allergies As of Date: 09/14/2023 Noted Allergy Reaction ZONISAMIDE 04/07/2022 1 - Mental Status Change 8 - GI Upset 11 - Vomiting 12 - Shortness of Breath Comments: Blurred/ double vision Numbing in most of body IODINATED CONTRAST MEDIA 10/19/2016 4 - Hives 9 - Itching MORPHINE 12/22/2021 5 - Intolerance Comments: Head Date Reviewed: 01/30/2023 Reviewed by: Angella Ambrose RN - Fully Assessed Reason for Visit: Patient Update [1234] Prescriptions as of 09/15/2023 - brivaracetam (BRIVIACT) 100 mg tablet Take 1 tablet by mouth two times a day for 90 days. - sertraline (ZOLOFT) 50 mg tablet Take 1 tablet by mouth once daily. - OXcarbazepine (TRILEPTAL) 300 mg tablet Take 1 tablet by mouth every morning AND 3 tablets every evening. 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] 12/01/2022 S/P brain surgery [Z98.890] 12/03/2022 Acute embolism and thrombosis of left axillary *12/20/2022 Blood clot of axillary vein in shoulder area, l*12/20/2022 Swelling in left armpit [M79.89] 12/21/2022 12/22/2022 Acute cystitis [N30.00] 12/23/2022 Acute deep vein thrombosis (DVT) of brachial ve*12/23/2022 Marijuana use [F12.90] 01/24/2023 Acute post-operative pain [G89.18] 01/30/2023 Encounter Status:Closed by ALBIN MAJOR on 09/15/23 [facility] Viktor 08-03-2023 ANTWON Telephone (NE50MN) KWASI HEBERT ([id number]) 4 F Date Time Provider Department 08/03/23 ROBERT MARIN NE50MN During your visit today, we recorded the following information about you: Karen Melgar 08/03/2023 1:18 PM Signed General call : Full name of person calling: Kwasi Hebert Relationship to patient: Self Phone # : [phone] (home) Reason for call: Wanted an update on a form she sent back in May. Wants to know if its completed. Patient of Albin Ramirez, CHERYL 08/03/2023 2:30 PM Signed Spoke with patient. She does not need a copy of forms. Forms completed and faxed to Dr. Marin for signature thru docusign One copy faxed to Dept of Educ [phone] CHERYL Gray Lucretia 08/29/2023 12:00 PM Signed Emailed form needs more information. Need provider signature, emailed nurse Albin Major RN 09/04/2023 4:10 PM Signed Form completed and routed to Dr. Marin for signature. One copy faxed to [facility] [phone] Albin Major RN Allergies As of Date: 08/03/2023 Noted Allergy Reaction ZONISAMIDE 04/07/2022 1 - Mental Status Change 8 - GI Upset 11 - Vomiting 12 - Shortness of Breath Comments: Blurred/ double vision Numbing in most of body IODINATED CONTRAST MEDIA 10/19/2016 4 - Hives 9 - Itching MORPHINE 12/22/2021 5 - Intolerance Comments: Head Date Reviewed: 01/30/2023 Reviewed by: Angella Ambrose, CHERYL - Fully Assessed Reason for Visit: Forms [913] Prescriptions as of 09/04/2023 - brivaracetam (BRIVIACT) 100 mg tablet Take 1 tablet by mouth two times a day for 90 days. - sertraline (ZOLOFT) 50 mg tablet Take 1 tablet by mouth once daily. - OXcarbazepine (TRILEPTAL) 300 mg tablet Take 1 tablet by mouth every morning AND 3 tablets every evening. 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] 12/01/2022 S/P brain surgery [Z98.890] 12/03/2022 Acute embolism and thrombosis of left axillary *12/20/2022 Blood clot of axillary vein in shoulder area, l*12/20/2022 Swelling in left armpit [M79.89] 12/21/2022 12/22/2022 Acute cystitis [N30.00] 12/23/2022 Acute deep vein thrombosis (DVT) of brachial ve*12/23/2022 Marijuana use [F12.90] 01/24/2023 Acute post-operative pain [G89.18] 01/30/2023 Encounter Status:Closed by ALBIN MAJOR on 08/03/23 [facility] MRI BRAIN WO IVCONon 023 [facility] MRI BRAIN LOCALIZATION WO IV CONon 01-24-2023 [facility] CTA HEAD W IVCONon 3 [facility] MRI BRAIN LOCALIZATION W IVC ONon 11-22-2022 [facility] MRI BRAIN WO IVCONon 023 [facility] Albumin [Mass/volume] in Ser um or PlasmaOrdered By: Shashi Ornelas on 10-02-2022 Albumin [Mass/Vol] 4.5 g/dL 3.2-5.5 [facility] Automated erythrocytes count in urine sediment (number/area)Ordered By: Shashi Ornelas on 10-02-2022 RBC Auto (Urine sed) [#/Area] Innumerable [HPF] 0-4 [facility] Automated leukocytes count i n urine sediment (number/area)Ordered By: Shashi Ornelas on 10-02-2022 WBC Auto (Urine sed) [#/Area] 5-9 [HPF] 0-4 [facility] Basophils Auto (Bld) [#/Vol] Ordered By: Shashi Ornelas on 10-02-2022 Basophils (Bld) [#/Vol] 0.1 10*3/uL 0.0-0.2 [facility] Basophils/100 WBC Auto (Bld) Ordered By: Shashi Ornelas on 10-02-2022 Basophils/100 WBC (Bld) 0.5 % . [facility] Bilirubin Test strip Ql (U)O rdered By: Shashi Ornelas on 10-02-2022 Bilirubin Ql (U) Negative Negative [facility] COVID CepheidOrdered By: Milton hiren Johnson on 10-02-2022 SARS-CoV-2 (COVID-19) Ab IA Ql Negative Negative [facility] Comment on above: This is a duplicate [employer] Xpert Xpress CoV-2/Flu/RSV Plus RNA by RT-PCR result to be used for statistical tracking purpose only. SARS-CoV-2 (COVID-19) RNA CHARLINE+probe Ql (Unsp spec) [facility] Color Auto (U)Ordered By: Bree Ornelas on 10-02-2022 Color (U) Yellow Yellow [facility] Creatinine and Glomerular fi ltration rate.predicted panel (S/P/Bld)Ordered By: Shashi Ornelas on 10-02-2022 Creatinine [Mass/Vol] 0.84 mg/dL 0.44-1.03 [facility] Eosinophils Auto (Bld) [#/Vo l]Ordered By: Shashi Ornelas on 10-02-2022 Eosinophils (Bld) [#/Vol] 0.1 10*3/uL 0.0-0.45 [facility] Eosinophils/100 WBC Auto (Bl d)Ordered By: Shashi Ornelas on 10-02-2022 Eosinophils/100 WBC (Bld) 0.7 % . [facility] Erythrocyte distribution wid th Auto (RBC) [Ratio]Ordered By: Shashi Ornelas on 10-02-2022 Erythrocyte distribution width (RBC) [Ratio] 13.7 % 11.9-15.3 [facility] Estimated glomerular filtrat ion rate (GFR) non- AmericanOrdered By: Shashi Ornelas on 10-02-2022 GFR/1.73 sq M.predicted among non-blacks MDRD (S/P/Bld) [Vol rate/Area] > 60 mL/Min [facility] Globulin Calc (S) [Mass/Vol] Ordered By: Shashi Ornelas on 10-02-2022 Globulin (S) [Mass/Vol] 2.8 g/dL [facility] HCG ( test) IA.rapi d Ql (U)Ordered By: Shashi Ornelas on 10-02-2022 HCG ( test) Ql (U) Negative [facility] Hematocrit Auto (Bld) [Volum e fraction]Ordered By: Shashi Ornelas on 10-02-2022 Hematocrit (Bld) [Volume fraction] 43.3 % 34.0-46.4 [facility] Hemoglobin [Mass/volume] in BloodOrdered By: Shashi Ornelas on 10-02-2022 Hemoglobin (Bld) [Mass/Vol] 14.4 g/dL 11.8-15.4 [facility] Ketones Auto test strip (U) [Mass/Vol]Ordered By: Shashi Ornelas on 10-02-2022 Ketones (U) [Mass/Vol] Trace Negative [facility] - Chemistry and C hemistry - challengeOrdered By: Shashi Ornelas on 10-02-2022 Lipase [Catalytic activity/Vol] 29.0 U/L 22-51 [facility] Magnesium [Mass/Vol] 1.9 mg/dL 1.6-2.6 [facility] - UrinalysisOrder ed By: Shashi Ornelas on 10-02-2022 Hyaline casts LM Ql (Urine sed) 0-8 [LPF] 0-8 [facility] Leukocytes [#/volume] correc deni for nucleated erythrocytes in Blood by Automated counOrdered By: Shashi Ornelas on 10-02-2022 WBC corrected for nucl RBC Auto (Bld) [#/Vol] 10.8 10*3/uL 3.8-11.6 [facility] Lymphocytes Auto (Bld) [#/Vo l]Ordered By: Shashi Ornelas on 10-02-2022 Lymphocytes (Bld) [#/Vol] 1.3 10*3/uL 1.00-4.8 [facility] Lymphocytes/100 WBC Auto (Bl d)Ordered By: Shashi Ornelas on 10-02-2022 Lymphocytes/100 WBC (Bld) 12.1 % . [facility] MCH Auto (RBC) [Entitic mass ]Ordered By: Shashi Ornelas on 10-02-2022 MCH (RBC) [Entitic mass] 29.8 pg 24.7-34.3 [facility] MCHC Auto (RBC) [Mass/Vol]Or dered By: Shashi Ornelas on 10-02-2022 MCHC (RBC) [Mass/Vol] 33.4 g/dL 32.0-35.0 [facility] MCV Auto (RBC) [Entitic vol] Ordered By: Shashi Ornelas on 10-02-2022 MCV (RBC) [Entitic vol] 89.3 fL 80-100 [facility] Monocyte distribution width [Entitic volume] in Blood by AutomatedOrdered By: Shahsi Ornelas on 10-02-2022 Monocyte distribution width Auto (Bld) [Entitic vol] 18.87 % 0.00-20.00 [facility] Monocytes Auto (Bld) [#/Vol] Ordered By: Shashi Ornelas on 10-02-2022 Monocytes (Bld) [#/Vol] 0.6 10*3/uL 0.0-0.8 [facility] Monocytes/100 WBC Auto (Bld) Ordered By: Shashi Ornelas on 10-02-2022 Monocytes/100 WBC (Bld) 5.2 % . [facility] Neutrophils Auto (Bld) [#/Vo l]Ordered By: Shashi Ornelas on 10-02-2022 Neutrophils (Bld) [#/Vol] 8.8 10*3/uL 1.8-7.7 [facility] Neutrophils/100 WBC Auto (Bl d)Ordered By: Shashi Ornelas on 10-02-2022 Neutrophils/100 WBC (Bld) 81.5 % . [facility] Nitrite Test strip Ql (U)Ord ered By: Shashi Ornelas on 10-02-2022 Nitrite Ql (U) Negative Negative [facility] No Panel InformationOrdered By: Shashi Ornelas on 10-02-2022 Estimated GFR () > 60 mL/Min [facility] Comment on above: GFR estimated refere nce range: According to KDOQI guidelines, <60 ml/min/1.73m2 is sufficient to diagnose a patient with chronic kidney disease. Pharmacy Creatinine Clearance (Chem 81.29 [facility] Nucleated erythrocytes [Pres ence] in Blood by Automated countOrdered By: Shashi Ornelas on 10-02-2022 Nucleated RBC Auto Ql (Bld) 0.0 /100{WBC} 0-0.5 [facility] Phosphate [Mass/volume] in S n[place] or PlasmaOrdered By: Shashi Ornelas on 10-02-2022 Phosphate [Mass/Vol] 2.9 mg/dL 2.5-4.6 [facility] Platelet mean volume Auto (B ld) [Entitic vol]Ordered By: Shashi Ornelas on 10-02-2022 Platelet mean volume (Bld) [Entitic vol] 9.2 fL 6.3-10.7 [facility] Platelets Auto (Bld) [#/Vol] Ordered By: Shashi Ornelas on 10-02-2022 Platelets (Bld) [#/Vol] 211 10*3/uL 150-450 [facility] Prolactin [Mass/volume] in S nury or PlasmaOrdered By: Shashi Ornelas on 10-02-2022 Prolactin [Mass/Vol] 48.05 ng/mL 3.34-26.72 [facility] Protein Auto test strip (U) [Mass/Vol]Ordered By: Shashi Ornelas on 10-02-2022 Protein (U) [Mass/Vol] 30 mg/dL Negative [facility] Protein [Mass/volume] in Ser um or PlasmaOrdered By: Shashi Ornelas on 10-02-2022 Protein [Mass/Vol] 7.3 g/dL 6.1-7.9 [facility] RBC Auto (Bld) [#/Vol]Ordere d By: Shashi Ornelas on 10-02-2022 RBC (Bld) [#/Vol] 4.84 10*6/uL 3.60-5.00 [facility] Serum or plasma alanine greene otransferase measurement without P-5'-P (enzymatic activiOrdered By: Shashi Ornelas on 10-02-2022 ALT No additional P-5'-P [Catalytic activity/Vol] 16 U/L 10-60 [facility] Serum or plasma albumin/glob ulin mass ratioOrdered By: Shashi Ornelas on 10-02-2022 Albumin/Globulin [Mass ratio] 1.6 {ratio} [facility] Serum or plasma alkaline donna sphatase measurement (enzymatic activity/volume)Ordered By: Shashi Ornelas on 10-02-2022 ALP [Catalytic activity/Vol] 78 U/L 32-92 [facility] Serum or plasma anion gap de terminationOrdered By: Shashi Ornelas on 10-02-2022 Anion gap [Moles/Vol] 11.0 mmol/L 6.0-15.0 [facility] Serum or plasma aspartate am inotransferase measurement (enzymatic activity/volume)Ordered By: Shashi Ornelas on 10-02-2022 AST [Catalytic activity/Vol] 20 U/L 10-42 [facility] Serum or plasma calcium france urement (mass/volume)Ordered By: Shashi Ornelas on 10-02-2022 Calcium [Mass/Vol] 9.2 mg/dL 8.2-10.2 [facility] Serum or plasma chloride joanne surement (moles/volume)Ordered By: Shashi Ornelas on 10-02-2022 Chloride [Moles/Vol] 102 mmol/L 95-114 [facility] Serum or plasma glucose france urement (mass/volume)Ordered By: Shashi Ornelas on 10-02-2022 Glucose [Mass/Vol] 146 mg/dL 70-100 [facility] Comment on above: ADA recommended refe rence rangeRandom Glucose Reference Range is dependent on time and content of last meal. Glucose of more than 200 mg/dL in a nonstressed, ambulatory subject supports the diagnosis of Diabetes Mellitus. Serum or plasma potassium me asurement (moles/volume)Ordered By: Shashi Ornelas on 10-02-2022 Potassium [Moles/Vol] 3.7 mmol/L 3.5-5.1 [facility] Serum or plasma sodium measu rement (moles/volume)Ordered By: Shashi Ornelas on 10-02-2022 Sodium [Moles/Vol] 135 mmol/L 136-146 [facility] Serum or plasma total biliru bin measurement (mass/volume)Ordered By: Shashi Ornelas on 10-02-2022 Bilirubin [Mass/Vol] 0.3 mg/dL 0.3-1.2 [facility] Serum or plasma total carbon dioxide measurement (moles/volume)Ordered By: Shashi Ornelas on 10-02-2022 CO2 [Moles/Vol] 25.7 mmol/L 22.0-30.0 [facility] Serum or plasma urea nitroge n measurement (mass/volume)Ordered By: Shashi Ornelas on 10-02-2022 Urea nitrogen [Mass/Vol] 14 mg/dL 9-23 [facility] Specific gravity Auto test s trip (U) [Rel density]Ordered By: Shashi Ornelas on 10-02-2022 Specific gravity (U) [Rel density] 1.028 1.001-1.030 [facility] Squamous epithelial cells de tection in urine sediment by light microscopyOrdered By: Shashi Ornelas on 10-02-2022 Epithelial cells.squamous LM Ql (Urine sed) 3-4 [HPF] 0-2 [facility] Urine bacteria detection by automated methodOrdered By: Shashi Ornelas on 10-02-2022 Bacteria Auto Ql (U) None seen None Seen [facility] Urine clarity by refractomet ry automatedOrdered By: Shashi Ornelas on 10-02-2022 Clarity Refractometry automated (U) Clear Clear [facility] Urine glucose measurement by automated test strip (mass/volume)Ordered By: Shashi Ornelas on 10-02-2022 Glucose Auto test strip (U) [Mass/Vol] Normal mg/dL Normal [facility] Urine hemoglobin detection b y automated test stripOrdered By: Shashi Ornelas on 10-02-2022 Hemoglobin Auto test strip Ql (U) 3+ Negative [facility] Urine leukocyte esterase det ection by automated test stripOrdered By: Shashi Ornelas on 10-02-2022 Leukocyte esterase Auto test strip Ql (U) 2+ Negative [facility] Urobilinogen Auto test strip (U) [Mass/Vol]Ordered By: Shashi Ornelas on 10-02-2022 Urobilinogen (U) [Mass/Vol] Normal mg/dL Normal [facility] WBC Auto (Bld) [#/Vol]Ordere d By: Shashi Ornelas on 10-02-2022 WBC (Bld) [#/Vol] 10.8 10*3/uL 3.8-11.6 [facility] pH Auto test strip (U)Ordere d By: Shashi Ornelas on 10-02-2022 pH (U) 7.0 [pH] 5.0-9.0 [facility] EPIL ANA SPONTANEOUS BRAIN A CTIVTYon 09-16-2022 [facility] No Panel Informationon 09-08 [facility] Albumin [Mass/volume] in Ser um or PlasmaOrdered By: Madiha Funk on 08-25-2022 Albumin [Mass/Vol] 4.4 g/dL 3.2-5.5 [facility] Automated erythrocytes count in urine sediment (number/area)Ordered By: Madiha Funk on 08-25-2022 RBC Auto (Urine sed) [#/Area] 10-19 [HPF] 0-4 [facility] Automated leukocytes count i n urine sediment (number/area)Ordered By: Madiha Funk on 08-25-2022 WBC Auto (Urine sed) [#/Area] 20-49 [HPF] 0-4 [facility] Basophils Auto (Bld) [#/Vol] Ordered By: PROVIDER TEMP on 08-25-2022 Basophils (Bld) [#/Vol] 0.0 10*3/uL 0.0-0.2 [facility] Basophils/100 WBC Auto (Bld) Ordered By: PROVIDER TEMP on 08-25-2022 Basophils/100 WBC (Bld) 0.7 % . [facility] Bilirubin Test strip Ql (U)O rdered By: Madiha Funk on 08-25-2022 Bilirubin Ql (U) Negative Negative [facility] COVID-19 SOFIAOrdered By: Cody Funk on 08-25-2022 SARS-CoV+SARS-CoV-2 (COVID-19) Ag IA.rapid Ql (Resp) Negative Negative [facility] Comment on above: This is a duplicate Eduarda SARS Antigen (JUVENCIO) result to be used for statistical tracking purpose only. Color Auto (U)Ordered By: Cody Funk on 08-25-2022 Color (U) Yellow Yellow [facility] Creatinine and Glomerular fi ltration rate.predicted panel (S/P/Bld)Ordered By: Madiha Funk on 08-25-2022 Creatinine [Mass/Vol] 0.97 mg/dL 0.44-1.03 [facility] Eosinophils Auto (Bld) [#/Vo l]Ordered By: PROVIDER TEMP on 08-25-2022 Eosinophils (Bld) [#/Vol] 0.1 10*3/uL 0.0-0.45 [facility] Eosinophils/100 WBC Auto (Bl d)Ordered By: PROVIDER TEMP on 08-25-2022 Eosinophils/100 WBC (Bld) 1.9 % . [facility] Erythrocyte distribution wid th Auto (RBC) [Ratio]Ordered By: PROVIDER TEMP on 08-25-2022 Erythrocyte distribution width (RBC) [Ratio] 14.1 % 11.9-15.3 [facility] Estimated glomerular filtrat ion rate (GFR) non- AmericanOrdered By: Madiha Funk on 08-25-2022 GFR/1.73 sq M.predicted among non-blacks MDRD (S/P/Bld) [Vol rate/Area] > 60 mL/Min [facility] Globulin Calc (S) [Mass/Vol] Ordered By: Madiha Funk on 08-25-2022 Globulin (S) [Mass/Vol] 2.5 g/dL [facility] Glucose Glucometer (BldC) [M ass/Vol]Ordered By: PROVIDER TEMP on 08-25-2022 Glucose [Mass/Vol] 83 mg/dL [facility] Comment on above: Random Glucose Refer ence Range is dependent on time and content of last meal. Glucose of more than 200 mg/dL in a nonstressed, ambulatory subject supports the diagnosis of Diabetes Mellitus. HCG ( test) IA.rapi d Ql (U)Ordered By: Madiha Funk on 08-25-2022 HCG ( test) Ql (U) Negative [facility] Hematocrit Auto (Bld) [Volum e fraction]Ordered By: PROVIDER TEMP on 08-25-2022 Hematocrit (Bld) [Volume fraction] 42.3 % 34.0-46.4 [facility] Hemoglobin [Mass/volume] in BloodOrdered By: PROVIDER TEMP on 08-25-2022 Hemoglobin (Bld) [Mass/Vol] 13.7 g/dL 11.8-15.4 [facility] Ketones Auto test strip (U) [Mass/Vol]Ordered By: Madiha Funk on 08-25-2022 Ketones (U) [Mass/Vol] Trace Negative [facility] - Chemistry and C hemistry - challengeOrdered By: Madiha Funk on 08-25-2022 Magnesium [Mass/Vol] 1.9 mg/dL 1.6-2.6 [facility] - UrinalysisOrder ed By: Madiha Funk on 08-25-2022 Hyaline casts LM Ql (Urine sed) 0-8 [LPF] 0-8 [facility] Leukocytes [#/volume] correc deni for nucleated erythrocytes in Blood by Automated counOrdered By: PROVIDER TEMP on 08-25-2022 WBC corrected for nucl RBC Auto (Bld) [#/Vol] 6.5 10*3/uL 3.8-11.6 [facility] Lymphocytes Auto (Bld) [#/Vo l]Ordered By: PROVIDER TEMP on 08-25-2022 Lymphocytes (Bld) [#/Vol] 1.9 10*3/uL 1.00-4.8 [facility] Lymphocytes/100 WBC Auto (Bl d)Ordered By: PROVIDER TEMP on 08-25-2022 Lymphocytes/100 WBC (Bld) 28.7 % . [facility] MCH Auto (RBC) [Entitic mass ]Ordered By: PROVIDER TEMP on 08-25-2022 MCH (RBC) [Entitic mass] 29.4 pg 24.7-34.3 [facility] MCHC Auto (RBC) [Mass/Vol]Or dered By: PROVIDER TEMP on 08-25-2022 MCHC (RBC) [Mass/Vol] 32.4 g/dL 32.0-35.0 [facility] MCV Auto (RBC) [Entitic vol] Ordered By: PROVIDER TEMP on 08-25-2022 MCV (RBC) [Entitic vol] 90.6 fL 80-100 [facility] Monocyte distribution width [Entitic volume] in Blood by AutomatedOrdered By: PROVIDER TEMP on 08-25-2022 Monocyte distribution width Auto (Bld) [Entitic vol] 15.89 % 0.00-20.00 [facility] Monocytes Auto (Bld) [#/Vol] Ordered By: PROVIDER TEMP on 08-25-2022 Monocytes (Bld) [#/Vol] 0.5 10*3/uL 0.0-0.8 [facility] Monocytes/100 WBC Auto (Bld) Ordered By: PROVIDER TEMP on 08-25-2022 Monocytes/100 WBC (Bld) 7.3 % . [facility] Neutrophils Auto (Bld) [#/Vo l]Ordered By: PROVIDER TEMP on 08-25-2022 Neutrophils (Bld) [#/Vol] 4.0 10*3/uL 1.8-7.7 [facility] Neutrophils/100 WBC Auto (Bl d)Ordered By: PROVIDER TEMP on 08-25-2022 Neutrophils/100 WBC (Bld) 61.4 % . [facility] Nitrite Test strip Ql (U)Ord ered By: Madiha Funk on 08-25-2022 Nitrite Ql (U) Negative Negative [facility] No Panel InformationOrdered By: Madiha Funk on 08-25-2022 SARS Antigen (LFIA) [facility] Estimated GFR () > 60 mL/Min [facility] Comment on above: GFR estimated refere nce range: According to KDOQI guidelines, <60 ml/min/1.73m2 is sufficient to diagnose a patient with chronic kidney disease. Lamotrigine (Lamictal) Level 6.1 ug/mL 2.0-20.0 [facility] Comment on above: Detection Limit = 1. 0Performed at: [facility] - [facility] [address] [id number] Director: Brent Alves MD, Phone: [phone] Pharmacy Creatinine Clearance (Chem 74.37 [facility] Nucleated erythrocytes [Pres ence] in Blood by Automated countOrdered By: PROVIDER TEMP on 08-25-2022 Nucleated RBC Auto Ql (Bld) 0.1 /100{WBC} 0-0.5 [facility] Platelet mean volume Auto (B ld) [Entitic vol]Ordered By: PROVIDER TEMP on 08-25-2022 Platelet mean volume (Bld) [Entitic vol] 9.0 fL 6.3-10.7 [facility] Platelets Auto (Bld) [#/Vol] Ordered By: PROVIDER TEMP on 08-25-2022 Platelets (Bld) [#/Vol] 202 10*3/uL 150-450 [facility] Prolactin [Mass/volume] in S nury or PlasmaOrdered By: Madiha Funk on 08-25-2022 Prolactin [Mass/Vol] 14.22 ng/mL 3.34-26.72 [facility] Protein Auto test strip (U) [Mass/Vol]Ordered By: Madiha Funk on 08-25-2022 Protein (U) [Mass/Vol] Negative Negative [facility] Protein [Mass/volume] in Ser um or PlasmaOrdered By: Madiha Funk on 08-25-2022 Protein [Mass/Vol] 6.9 g/dL 6.1-7.9 [facility] RBC Auto (Bld) [#/Vol]Ordere d By: PROVIDER TEMP on 08-25-2022 RBC (Bld) [#/Vol] 4.67 10*6/uL 3.60-5.00 [facility] Serum or plasma alanine greene otransferase measurement without P-5'-P (enzymatic activiOrdered By: Madiha Funk on 08-25-2022 ALT No additional P-5'-P [Catalytic activity/Vol] 17 U/L 10-60 [facility] Serum or plasma albumin/glob ulin mass ratioOrdered By: Madiha Funk on 08-25-2022 Albumin/Globulin [Mass ratio] 1.8 {ratio} [facility] Serum or plasma alkaline donna sphatase measurement (enzymatic activity/volume)Ordered By: Madiha Funk on 08-25-2022 ALP [Catalytic activity/Vol] 61 U/L 32-92 [facility] Serum or plasma anion gap de terminationOrdered By: Madiha Funk on 08-25-2022 Anion gap [Moles/Vol] 12.1 mmol/L 6.0-15.0 [facility] Serum or plasma aspartate am inotransferase measurement (enzymatic activity/volume)Ordered By: Madiha Funk on 08-25-2022 AST [Catalytic activity/Vol] 19 U/L 10-42 [facility] Serum or plasma calcium france urement (mass/volume)Ordered By: Madiha Funk on 08-25-2022 Calcium [Mass/Vol] 9.6 mg/dL 8.2-10.2 [facility] Serum or plasma chloride joanne surement (moles/volume)Ordered By: Madiha Funk on 08-25-2022 Chloride [Moles/Vol] 101 mmol/L 95-114 [facility] Serum or plasma glucose france urement (mass/volume)Ordered By: Madiha Funk on 08-25-2022 Glucose [Mass/Vol] 88 mg/dL 70-100 [facility] Comment on above: ADA recommended refe rence rangeRandom Glucose Reference Range is dependent on time and content of last meal. Glucose of more than 200 mg/dL in a nonstressed, ambulatory subject supports the diagnosis of Diabetes Mellitus. Serum or plasma potassium me asurement (moles/volume)Ordered By: Madiha Funk on 08-25-2022 Potassium [Moles/Vol] 4.1 mmol/L 3.5-5.1 [facility] Serum or plasma sodium measu rement (moles/volume)Ordered By: Madiha Funk on 08-25-2022 Sodium [Moles/Vol] 133 mmol/L 136-146 [facility] Serum or plasma total biliru bin measurement (mass/volume)Ordered By: Madiha Funk on 08-25-2022 Bilirubin [Mass/Vol] 0.7 mg/dL 0.3-1.2 [facility] Serum or plasma total carbon dioxide measurement (moles/volume)Ordered By: Madiha Funk on 08-25-2022 CO2 [Moles/Vol] 24.0 mmol/L 22.0-30.0 [facility] Serum or plasma urea nitroge n measurement (mass/volume)Ordered By: Madiha Funk on 08-25-2022 Urea nitrogen [Mass/Vol] 13 mg/dL 9- [facility] Specific gravity Auto test s trip (U) [Rel density]Ordered By: Madiha Funk on 08-25-2022 Specific gravity (U) [Rel density] 1.029 1.001-1.030 [facility] Squamous epithelial cells de tection in urine sediment by light microscopyOrdered By: Madiha Funk on 08-25-2022 Epithelial cells.squamous LM Ql (Urine sed) 1-2 [HPF] 0-2 [facility] Urine bacteria detection by automated methodOrdered By: Madiha Funk on 08-25-2022 Bacteria Auto Ql (U) None seen None Seen [facility] Urine clarity by refractomet ry automatedOrdered By: Madiha Funk on 08-25-2022 Clarity Refractometry automated (U) Clear Clear [facility] Urine culture routineOrdered By: Madiha Funk on 08-25-2022 Bacteria identified Cx Nom (U) Enterococcus faecalis [facility] Urine glucose measurement by automated test strip (mass/volume)Ordered By: Madiha Funk on 08-25-2022 Glucose Auto test strip (U) [Mass/Vol] Normal mg/dL Normal [facility] Urine hemoglobin detection b y automated test stripOrdered By: Madiha Funk on 08-25-2022 Hemoglobin Auto test strip Ql (U) Negative Negative [facility] Urine lactic acid measuremen tOrdered By: Leif Funk on 08-25-2022 Lactate (U) [Moles/Vol] 0.8 mmol/L 0.5-2.2 [facility] Urine leukocyte esterase det ection by automated test stripOrdered By: Madiha Funk on 08-25-2022 Leukocyte esterase Auto test strip Ql (U) 2+ Negative [facility] Urobilinogen Auto test strip (U) [Mass/Vol]Ordered By: Madiha Funk on 08-25-2022 Urobilinogen (U) [Mass/Vol] Normal mg/dL Normal [facility] WBC Auto (Bld) [#/Vol]Ordere d By: JEAN MARIE GARCIA on 08-25-2022 WBC (Bld) [#/Vol] 6.5 10*3/uL 3.8-11.6 [facility] pH Auto test strip (U)Ordere d By: Madiha Funk on 08-25-2022 pH (U) 5.5 [pH] 5.0-9.0 [facility] Automated erythrocytes count in urine sediment (number/area)Ordered By: Sedrick Pina on 07-14-2022 RBC Auto (Urine sed) [#/Area] None seen [HPF] 0-4 [facility] Automated leukocytes count i n urine sediment (number/area)Ordered By: Sedrick Pina on 07-14-2022 WBC Auto (Urine sed) [#/Area] 5-9 [HPF] 0-4 [facility] Basophils Auto (Bld) [#/Vol] Ordered By: Sedrick Pina on 07-14-2022 Basophils (Bld) [#/Vol] 0.1 10*3/uL 0.0-0.2 [facility] Basophils/100 WBC Auto (Bld) Ordered By: Sedrick Pina on 07-14-2022 Basophils/100 WBC (Bld) 0.8 % . [facility] Bilirubin Test strip Ql (U)O rdered By: Sedrick Pina on 07-14-2022 Bilirubin Ql (U) Negative Negative [facility] Body fluid albumin measureme nt (mass/volume)Ordered By: Sedrick Pina on 07-14-2022 Albumin (Body fld) [Mass/Vol] 4.1 g/dL 3.2-5.5 [facility] Color Auto (U)Ordered By: Sahil Pina on 07-14-2022 Color (U) Yellow Yellow [facility] Creatinine and Glomerular fi ltration rate.predicted panel (S/P/Bld)Ordered By: Sedrick Pina on 07-14-2022 Creatinine [Mass/Vol] 0.89 mg/dL 0.44-1.03 [facility] Eosinophils Auto (Bld) [#/Vo l]Ordered By: Sedrick Pina on 07-14-2022 Eosinophils (Bld) [#/Vol] 0.1 10*3/uL 0.0-0.45 [facility] Eosinophils/100 WBC Auto (Bl d)Ordered By: Sedrick Pina on 07-14-2022 Eosinophils/100 WBC (Bld) 1.7 % . [facility] Erythrocyte distribution wid th Auto (RBC) [Ratio]Ordered By: Sedrick Pina on 07-14-2022 Erythrocyte distribution width (RBC) [Ratio] 13.8 % 11.9-15.3 [facility] Estimated glomerular filtrat ion rate (GFR) non- AmericanOrdered By: Sedrick Pina on 07-14-2022 GFR/1.73 sq M.predicted among non-blacks MDRD (S/P/Bld) [Vol rate/Area] > 60 mL/Min [facility] Globulin Calc (S) [Mass/Vol] Ordered By: Sedrick Pina on 07-14-2022 Globulin (S) [Mass/Vol] 2.7 g/dL [facility] HCG ( test) IA.rapi d Ql (U)Ordered By: JEAN MARIE GARCIA on 07-14-2022 HCG ( test) Ql (U) Negative [facility] Hematocrit Auto (Bld) [Volum e fraction]Ordered By: Sedrick Pina on 07-14-2022 Hematocrit (Bld) [Volume fraction] 41.1 % 34.0-46.4 [facility] Hemoglobin [Mass/volume] in BloodOrdered By: Sedrick Pina on 07-14-2022 Hemoglobin (Bld) [Mass/Vol] 13.5 g/dL 11.8-15.4 [facility] Ketones Auto test strip (U) [Mass/Vol]Ordered By: Sedrick Pina on 07-14-2022 Ketones (U) [Mass/Vol] Trace Negative [facility] Laboratory - Chemistry and C hemistry - challengeOrdered By: Sedrick Pina on 07-14-2022 Lipase [Catalytic activity/Vol] 32.0 U/L 22-51 [facility] - UrinalysisOrder ed By: Sedrick Pina on 07-14-2022 Hyaline casts LM Ql (Urine sed) 0-8 [LPF] 0-8 [facility] Leukocytes [#/volume] correc deni for nucleated erythrocytes in Blood by Automated counOrdered By: Sedrick Pina on 07-14-2022 WBC corrected for nucl RBC Auto (Bld) [#/Vol] 7.7 10*3/uL 3.8-11.6 [facility] Lymphocytes Auto (Bld) [#/Vo l]Ordered By: Sedrick Pina on 07-14-2022 Lymphocytes (Bld) [#/Vol] 2.3 10*3/uL 1.00-4.8 [facility] Lymphocytes/100 WBC Auto (Bl d)Ordered By: Sedrick Pina on 07-14-2022 Lymphocytes/100 WBC (Bld) 30.0 % . [facility] MCH Auto (RBC) [Entitic mass ]Ordered By: Sedrick Pina on 07-14-2022 MCH (RBC) [Entitic mass] 29.2 pg 24.7-34.3 [facility] MCHC Auto (RBC) [Mass/Vol]Or dered By: Sedrick Pina on 07-14-2022 MCHC (RBC) [Mass/Vol] 32.9 g/dL 32.0-35.0 [facility] MCV Auto (RBC) [Entitic vol] Ordered By: Sedrick Pina on 07-14-2022 MCV (RBC) [Entitic vol] 88.8 fL 80-100 [facility] Monocytes Auto (Bld) [#/Vol] Ordered By: Sedrick Pina on 07-14-2022 Monocytes (Bld) [#/Vol] 0.6 10*3/uL 0.0-0.8 [facility] Monocytes/100 WBC Auto (Bld) Ordered By: Sedrick Pina on 07-14-2022 Monocytes/100 WBC (Bld) 7.5 % . [facility] Mucus LM Ql (Urine sed)Order ed By: Sedrick Pina on 07-14-2022 Mucus Ql (Urine sed) 4+ [LPF] [facility] Neutrophils Auto (Bld) [#/Vo l]Ordered By: Sedrick Pina on 07-14-2022 Neutrophils (Bld) [#/Vol] 4.6 10*3/uL 1.8-7.7 [facility] Neutrophils/100 WBC Auto (Bl d)Ordered By: Sedrick Pina on 07-14-2022 Neutrophils/100 WBC (Bld) 60.0 % . [facility] Nitrite Test strip Ql (U)Ord ered By: Sedrick Pina on 07-14-2022 Nitrite Ql (U) Negative Negative [facility] No Panel InformationOrdered By: Sedrick Pina on 07-14-2022 Estimated GFR () > 60 mL/Min [facility] Comment on above: GFR estimated refere nce range: According to KDOQI guidelines, <60 ml/min/1.73m2 is sufficient to diagnose a patient with chronic kidney disease. Pharmacy Creatinine Clearance (Chem 8.03 [facility] Nucleated erythrocytes [Pres ence] in Blood by Automated countOrdered By: Sedrick Pina on 07-14-2022 Nucleated RBC Auto Ql (Bld) 0.2 /100{WBC} 0-0.5 [facility] Platelet mean volume Auto (B ld) [Entitic vol]Ordered By: Sedrick Pina on 07-14-2022 Platelet mean volume (Bld) [Entitic vol] 8.8 fL 6.3-10.7 [facility] Platelets Auto (Bld) [#/Vol] Ordered By: Sedrick Pina on 07-14-2022 Platelets (Bld) [#/Vol] 218 10*3/uL 150-450 [facility] Protein Auto test strip (U) [Mass/Vol]Ordered By: Sedrick Pina on 07-14-2022 Protein (U) [Mass/Vol] Negative Negative [facility] Protein [Mass/volume] in Ser um or PlasmaOrdered By: Sedrick Pina on 07-14-2022 Protein [Mass/Vol] 6.8 g/dL 6.1-7.9 [facility] RBC Auto (Bld) [#/Vol]Ordere d By: Sedrick Pnia on 07-14-2022 RBC (Bld) [#/Vol] 4.63 10*6/uL 3.60-5.00 [facility] Serum or plasma alanine greene otransferase measurement without P-5'-P (enzymatic activiOrdered By: Sedrick Pina on 07-14-2022 ALT No additional P-5'-P [Catalytic activity/Vol] 22 U/L 10-60 [facility] Serum or plasma albumin/glob ulin mass ratioOrdered By: Sedrick Pina on 07-14-2022 Albumin/Globulin [Mass ratio] 1.5 {ratio} [facility] Serum or plasma alkaline donna sphatase measurement (enzymatic activity/volume)Ordered By: Sedrick Pina on 07-14-2022 ALP [Catalytic activity/Vol] 67 U/L 32-92 [facility] Serum or plasma anion gap de terminationOrdered By: Sedrick Pina on 07-14-2022 Anion gap [Moles/Vol] 12.0 mmol/L 6.0-15.0 [facility] Serum or plasma aspartate am inotransferase measurement (enzymatic activity/volume)Ordered By: Sedrick Pina on 07-14-2022 AST [Catalytic activity/Vol] 21 U/L 10-42 [facility] Serum or plasma calcium france urement (mass/volume)Ordered By: Sedrick Pina on 07-14-2022 Calcium [Mass/Vol] 9.5 mg/dL 8.2-10.2 [facility] Serum or plasma chloride joanne surement (moles/volume)Ordered By: Sedrick Pina on 07-14-2022 Chloride [Moles/Vol] 99 mmol/L 95-114 [facility] Serum or plasma glucose france urement (mass/volume)Ordered By: Sedrick Pina on 07-14-2022 Glucose [Mass/Vol] 96 mg/dL 70-100 [facility] Comment on above: ADA recommended refe rence rangeRandom Glucose Reference Range is dependent on time and content of last meal. Glucose of more than 200 mg/dL in a nonstressed, ambulatory subject supports the diagnosis of Diabetes Mellitus. Serum or plasma potassium me asurement (moles/volume)Ordered By: Sedrick Pina on 07-14-2022 Potassium [Moles/Vol] 3.5 mmol/L 3.5-5.1 [facility] Serum or plasma sodium measu rement (moles/volume)Ordered By: Sedrick Pina on 07-14-2022 Sodium [Moles/Vol] 136 mmol/L 136-146 [facility] Serum or plasma total biliru bin measurement (mass/volume)Ordered By: Sedrick Pina on 07-14-2022 Bilirubin [Mass/Vol] 0.4 mg/dL 0.3-1.2 [facility] Serum or plasma total carbon dioxide measurement (moles/volume)Ordered By: Sedrick Pina on 07-14-2022 CO2 [Moles/Vol] 28.5 mmol/L 22.0-30.0 [facility] Serum or plasma urea nitroge n measurement (mass/volume)Ordered By: Sedrick Pina on 07-14-2022 Urea nitrogen [Mass/Vol] 12 mg/dL 9-23 [facility] Specific gravity Auto test s trip (U) [Rel density]Ordered By: Sedrick Pina on 07-14-2022 Specific gravity (U) [Rel density] 1.027 1.001-1.030 [facility] Squamous epithelial cells de tection in urine sediment by light microscopyOrdered By: Sedrick Pina on 07-14-2022 Epithelial cells.squamous LM Ql (Urine sed) 5-9 [HPF] 0-2 [facility] Urine bacteria detection by automated methodOrdered By: Sedrick Pina on 07-14-2022 Bacteria Auto Ql (U) 1+ None Seen [facility] Urine clarity by refractomet ry automatedOrdered By: Sedrick Pina on 07-14-2022 Clarity Refractometry automated (U) Clear Clear [facility] Urine culture routineOrdered By: Sedrick Pina on 07-14-2022 Bacteria identified Cx Nom (U) 2 Days [facility] Urine glucose measurement by automated test strip (mass/volume)Ordered By: Sedrick Pina on 07-14-2022 Glucose Auto test strip (U) [Mass/Vol] Normal mg/dL Normal [facility] Urine hemoglobin detection b y automated test stripOrdered By: Sedrick Pina on 07-14-2022 Hemoglobin Auto test strip Ql (U) Trace Negative [facility] Urine leukocyte esterase det ection by automated test stripOrdered By: Sedrick Pina on 07-14-2022 Leukocyte esterase Auto test strip Ql (U) 1+ Negative [facility] Urine sediment renal epithel ial cell count by microscopy (number/high power field)Ordered By: Sedrick Pina on 07-14-2022 Epithelial cells.renal LM.HPF (Urine sed) [#/Area] None seen [HPF] 0-1 [facility] Urobilinogen Auto test strip (U) [Mass/Vol]Ordered By: Sedrick Pina on 07-14-2022 Urobilinogen (U) [Mass/Vol] Normal mg/dL Normal [facility] WBC Auto (Bld) [#/Vol]Ordere d By: Sedrick Pina on 07-14-2022 WBC (Bld) [#/Vol] 7.7 10*3/uL 3.8-11.6 [facility] pH Auto test strip (U)Ordere d By: Sedrick Pina on 07-14-2022 pH (U) 6.0 [pH] 5.0-9.0 [facility] Amphetamine Screen Ql (U)Ord ered By: Bill Keith on 04-05-2022 Amphetamines Ql (U) Negative Negative [facility] Automated epithelial cells c ount in urine sediment (number/area)Ordered By: Bill Keith on 04-05-2022 Epithelial cells Auto (Urine sed) [#/Area] None seen [HPF] 0-2 [facility] Automated erythrocytes count in urine sediment (number/area)Ordered By: Bill Keith on 04-05-2022 RBC Auto (Urine sed) [#/Area] None seen [HPF] 0-4 [facility] Automated leukocytes count i n urine sediment (number/area)Ordered By: Bill Keith on 04-05-2022 WBC Auto (Urine sed) [#/Area] None seen [HPF] 0-4 [facility] Automated urine hyaline cast s count (number/volume)Ordered By: Bill Keith on 04-05-2022 Hyaline casts Auto (U) [#/Vol] None seen [LPF] 0-1 [facility] Barbiturates [Presence] in U rineOrdered By: Bill Keith on 04-05-2022 Barbiturates Ql (U) Negative Negative [facility] Benzodiazepines [Presence] i n UrineOrdered By: Bill Keith on 04-05-2022 Benzodiazepines Ql (U) Negative Negative [facility] Bilirubin Test strip Ql (U)O rdered By: Bill Keith on 04-05-2022 Bilirubin Ql (U) Negative Negative [facility] Cannabinoids [Presence] in U rine by Screen methodOrdered By: Bill Keith on 04-05-2022 Cannabinoids Screen Ql (U) Positive Negative [facility] Comment on above: These are unconfirme d results and should not be used for legal purposes. Drug Cut-Off Concentration: AMPH 1000 ng/mL CHARISSE 200 ng/mL JANIE 200 ng/mL COCM 300 ng/mL OP 300 ng/mL PCP 25 ng/mL THC 20 ng/mL Color Auto (U)Ordered By: Praneeth Keith on 04-05-2022 Color (U) Yellow Yellow [facility] HCG ( test) IA.rapi d Ql (U)Ordered By: Bill Keith on 04-05-2022 HCG ( test) Ql (U) Negative [facility] Ketones Auto test strip (U) [Mass/Vol]Ordered By: Bill Keith on 04-05-2022 Ketones (U) [Mass/Vol] Negative Negative [facility] - Drug toxicology Ordered By: Bill Keith on 04-05-2022 Opiates Ql (U) Negative Negative [facility] Nitrite Test strip Ql (U)Ord ered By: Bill Keith on 04-05-2022 Nitrite Ql (U) Negative Negative [facility] Phencyclidine Screen Ql (U)O rdered By: Bill Keith on 04-05-2022 Phencyclidine Ql (U) Negative Negative [facility] Protein Auto test strip (U) [Mass/Vol]Ordered By: Bill Keith on 04-05-2022 Protein (U) [Mass/Vol] Negative Negative [facility] Specific gravity Auto test s trip (U) [Rel density]Ordered By: Bill Keith on 04-05-2022 Specific gravity (U) [Rel density] 1.004 1.001-1.030 [facility] Urine bacteria detection by automated methodOrdered By: Bill Keith on 04-05-2022 Bacteria Auto Ql (U) None seen None Seen [facility] Urine clarity by refractomet ry automatedOrdered By: Bill Keith on 04-05-2022 Clarity Refractometry automated (U) Clear Clear [facility] Urine cocaine detectionOrder ed By: Bill Keith on 04-05-2022 Cocaine Ql (U) Negative Negative [facility] Urine glucose measurement by automated test strip (mass/volume)Ordered By: Bill Keith on 04-05-2022 Glucose Auto test strip (U) [Mass/Vol] Normal mg/dL Normal [facility] Urine hemoglobin detection b y automated test stripOrdered By: Bill Keith on 04-05-2022 Hemoglobin Auto test strip Ql (U) Trace Negative [facility] Urine leukocyte esterase det ection by automated test stripOrdered By: Bill Keith on 04-05-2022 Leukocyte esterase Auto test strip Ql (U) Negative Negative [facility] Urobilinogen Auto test strip (U) [Mass/Vol]Ordered By: Bill Keith on 04-05-2022 Urobilinogen (U) [Mass/Vol] Normal mg/dL Normal [facility] pH Auto test strip (U)Ordere d By: Bill Keith on 04-05-2022 pH (U) 8.0 [pH] 5.0-9.0 [facility] Activated partial thrombopla stin time (aPTT) in platelet poor plasma by coagulation aOrdered By: Feng Barlow on 03-14-2022 aPTT Coag (PPP) [Time] 31.7 s 25.1-36.5 [facility] Albumin [Mass/volume] in Ser um or PlasmaOrdered By: Feng Barlow on 03-14-2022 Albumin [Mass/Vol] 4.5 g/dL 3.2-5.5 [facility] Basophils Auto (Bld) [#/Vol] Ordered By: Feng Barlow on 03-14-2022 Basophils (Bld) [#/Vol] 0.1 10*3/uL 0.0-0.2 [facility] Basophils/100 WBC Auto (Bld) Ordered By: Feng Barlow on 03-14-2022 Basophils/100 WBC (Bld) 1.0 % . [facility] Blood hemoglobin measurement (mass/volume)Ordered By: Feng Barlow on 03-14-2022 Hemoglobin (Bld) [Mass/Vol] 14.1 g/dL 11.8-15.4 [facility] Blood leukocytes automated c ount (number/volume)Ordered By: Feng Barlow on 03-14-2022 WBC (Bld) [#/Vol] 6.0 10*3/uL 4.5-11.0 [facility] Creatine kinase [Enzymatic a ctivity/volume] in Serum or PlasmaOrdered By: Feng Barlow on 03-14-2022 CK [Catalytic activity/Vol] 81 U/L 22-269 [facility] Creatinine and Glomerular fi ltration rate.predicted panel (S/P/Bld)Ordered By: Feng Barlow on 03-14-2022 Creatinine [Mass/Vol] 1.04 mg/dL 0.44-1.03 [facility] Eosinophils Auto (Bld) [#/Vo l]Ordered By: Feng Barlow on 03-14-2022 Eosinophils (Bld) [#/Vol] 0.0 10*3/uL 0.0-0.45 [facility] Eosinophils/100 WBC Auto (Bl d)Ordered By: Feng Barlow on 03-14-2022 Eosinophils/100 WBC (Bld) 0.8 % . [facility] Erythrocyte distribution wid th Auto (RBC) [Ratio]Ordered By: Feng Barlow on 03-14-2022 Erythrocyte distribution width (RBC) [Ratio] 13.8 % 11.9-15.3 [facility] Estimated glomerular filtrat ion rate (GFR) non- AmericanOrdered By: Feng Barlow on 03-14-2022 GFR/1.73 sq M.predicted among non-blacks MDRD (S/P/Bld) [Vol rate/Area] > 60 mL/Min [facility] Globulin Calc (S) [Mass/Vol] Ordered By: Feng Barlow on 03-14-2022 Globulin (S) [Mass/Vol] 2.6 g/dL [facility] Hematocrit Auto (Bld) [Volum e fraction]Ordered By: Feng Barlow on 03-14-2022 Hematocrit (Bld) [Volume fraction] 43.0 % 34.0-46.4 [facility] Laboratory - Chemistry and C hemistry - challengeOrdered By: Feng Barlow on 03-14-2022 Magnesium [Mass/Vol] 1.9 mg/dL 1.6-2.6 [facility] Laboratory - CoagulationOrde red By: Feng Barlow on 03-14-2022 PT Coag (PPP) [Time] 13.7 s 9.0-12.9 [facility] - Hematology and Cell countsOrdered By: Feng Barlow on 03-14-2022 Nucleated RBC/100 WBC (Bld) [Ratio] 0.1 % 0-0.5 [facility] Lymphocytes Auto (Bld) [#/Vo l]Ordered By: Feng Barlow on 03-14-2022 Lymphocytes (Bld) [#/Vol] 1.9 10*3/uL 1.00-4.8 [facility] Lymphocytes/100 WBC Auto (Bl d)Ordered By: Feng Barlow on 03-14-2022 Lymphocytes/100 WBC (Bld) 31.0 % . [facility] MCH Auto (RBC) [Entitic mass ]Ordered By: Feng Barlow on 03-14-2022 MCH (RBC) [Entitic mass] 29.2 pg 24.7-34.3 [facility] MCHC Auto (RBC) [Mass/Vol]Or dered By: Feng Barlow on 03-14-2022 MCHC (RBC) [Mass/Vol] 32.7 g/dL 32.0-35.0 [facility] MCV Auto (RBC) [Entitic vol] Ordered By: Feng Barlow on 03-14-2022 MCV (RBC) [Entitic vol] 89.2 fL 80-100 [facility] Monocytes Auto (Bld) [#/Vol] Ordered By: Feng Barlow on 03-14-2022 Monocytes (Bld) [#/Vol] 0.4 10*3/uL 0.0-0.8 [facility] Monocytes/100 WBC Auto (Bld) Ordered By: Feng Barlow on 03-14-2022 Monocytes/100 WBC (Bld) 7.1 % . [facility] Neutrophils Auto (Bld) [#/Vo l]Ordered By: Feng Barlow on 03-14-2022 Neutrophils (Bld) [#/Vol] 3.6 10*3/uL 1.8-7.7 [facility] Neutrophils/100 WBC Auto (Bl d)Ordered By: Feng Barlow on 03-14-2022 Neutrophils/100 WBC (Bld) 60.1 % . [facility] No Panel InformationOrdered By: Feng Barlow on 03-14-2022 Estimated GFR () > 60 mL/Min [facility] Comment on above: GFR estimated refere nce range: According to KDOQI guidelines, <60 ml/min/1.73m2 is sufficient to diagnose a patient with chronic kidney disease. Pharmacy Creatinine Clearance (Chem 69.36 [facility] Platelet mean volume Auto (B ld) [Entitic vol]Ordered By: Feng Barlow on 03-14-2022 Platelet mean volume (Bld) [Entitic vol] 9.1 fL 6.3-10.7 [facility] Platelet poor plasma interna tional normalized ratio (INR) by coagulation assay (relatOrdered By: Feng Barlow on 03-14-2022 INR Coag (PPP) [Relative time] 1.2 {INR} [facility] Comment on above: INR Therapeutic Rang [...] 4.5 Platelets Auto (Bld) [#/Vol] Ordered By: Feng Barlow on 03-14-2022 Platelets (Bld) [#/Vol] 221 10*3/uL 150-450 [facility] Protein [Mass/volume] in Ser um or PlasmaOrdered By: Feng Barlow on 03-14-2022 Protein [Mass/Vol] 7.1 g/dL 6.1-7.9 [facility] RBC Auto (Bld) [#/Vol]Ordere d By: Feng Barlow on 03-14-2022 RBC (Bld) [#/Vol] 4.82 10*6/uL 3.60-5.00 [facility] Serum or plasma alanine greene otransferase measurement without P-5'-P (enzymatic activiOrdered By: Feng Barlow on 03-14-2022 ALT No additional P-5'-P [Catalytic activity/Vol] 14 U/L 10-60 [facility] Serum or plasma albumin/glob ulin mass ratioOrdered By: Feng Barlow on 03-14-2022 Albumin/Globulin [Mass ratio] 1.7 {ratio} [facility] Serum or plasma alkaline donna sphatase measurement (enzymatic activity/volume)Ordered By: Feng Barlow on 03-14-2022 ALP [Catalytic activity/Vol] 65 U/L 32-92 [facility] Serum or plasma aspartate am inotransferase measurement (enzymatic activity/volume)Ordered By: Feng Barlow on 03-14-2022 AST [Catalytic activity/Vol] 18 U/L 10-42 [facility] Serum or plasma calcium france urement (mass/volume)Ordered By: Feng Barlwo on 03-14-2022 Calcium [Mass/Vol] 9.7 mg/dL 8.2-10.2 [facility] Serum or plasma chloride joanne surement (moles/volume)Ordered By: Fneg Barlow on 03-14-2022 Chloride [Moles/Vol] 102 mmol/L 95-114 [facility] Serum or plasma creatine kin ase MB (CKMB)/total creatine kinase (CK) ratio by calculaOrdered By: Feng Barlow on 03-14-2022 CK.MB Calc [Catalytic fraction] 1.3 % 0.00-2.50 [facility] Serum or plasma creatine kin ase MB measurement (mass/volume)Ordered By: Feng Barlow on 03-14-2022 CK.MB [Mass/Vol] 1.1 ng/mL 0.6-6.3 [facility] Serum or plasma glucose france urement (mass/volume)Ordered By: Feng Barlow on 03-14-2022 Glucose [Mass/Vol] 118 mg/dL 70-100 [facility] Comment on above: ADA recommended refe rence range Random Glucose Reference Range is dependent on time and content of last meal. Glucose of more than 200 mg/dL in a nonstressed, ambulatory subject supports the diagnosis of Diabetes Mellitus. Serum or plasma potassium me asurement (moles/volume)Ordered By: Feng Barlow on 03-14-2022 Potassium [Moles/Vol] 3.5 mmol/L 3.5-5.1 [facility] Serum or plasma sodium measu rement (moles/volume)Ordered By: Feng Barlow on 03-14-2022 Sodium [Moles/Vol] 137 mmol/L 136-146 [facility] Serum or plasma total biliru bin measurement (mass/volume)Ordered By: Feng Barlow on 03-14-2022 Bilirubin [Mass/Vol] 0.8 mg/dL 0.3-1.2 [facility] Serum or plasma total carbon dioxide measurement (moles/volume)Ordered By: Feng Barlow on 03-14-2022 CO2 [Moles/Vol] 24.8 mmol/L 22.0-30.0 [facility] Serum or plasma urea nitroge n measurement (mass/volume)Ordered By: Feng Barlow on 03-14-2022 Urea nitrogen [Mass/Vol] 14 mg/dL 9-23 [facility] Troponin I.cardiac [Mass/vol ume] in Serum or Plasma by High sensitivity methodOrdered By: Feng Barlow on 03-14-2022 Troponin I.cardiac High sensitivity method [Mass/Vol] < 3 pg/mL 0-15 [facility] Albumin [Mass/volume] in Ser um or PlasmaOrdered By: Brando Guy on 02-10-2022 Albumin [Mass/Vol] 3.9 g/dL 3.2-5.5 [facility] Basophils Auto (Bld) [#/Vol] Ordered By: Brando Guy on 02-10-2022 Basophils (Bld) [#/Vol] 0.0 10*3/uL 0.0-0.2 [facility] Basophils/100 WBC Auto (Bld) Ordered By: Brando Guy on 02-10-2022 Basophils/100 WBC (Bld) 0.7 % . [facility] Bilirubin Test strip Ql (U)O rdered By: Brando Guy on 02-10-2022 Bilirubin Ql (U) Negative Negative [facility] Blood hemoglobin measurement (mass/volume)Ordered By: Brando Guy on 02-10-2022 Hemoglobin (Bld) [Mass/Vol] 13.9 g/dL 11.8-15.4 [facility] Blood leukocytes automated c ount (number/volume)Ordered By: Brando Guy on 02-10-2022 WBC (Bld) [#/Vol] 6.4 10*3/uL 4.5-11.0 [facility] Color Auto (U)Ordered By: Fidencio Guy on 02-10-2022 Color (U) Yellow Yellow [facility] Creatinine and Glomerular fi ltration rate.predicted panel (S/P/Bld)Ordered By: Brando Guy on 02-10-2022 Creatinine [Mass/Vol] 0.90 mg/dL 0.44-1.03 [facility] Eosinophils Auto (Bld) [#/Vo l]Ordered By: Brando Guy on 02-10-2022 Eosinophils (Bld) [#/Vol] 0.2 10*3/uL 0.0-0.45 [facility] Eosinophils/100 WBC Auto (Bl d)Ordered By: Brando Guy on 02-10-2022 Eosinophils/100 WBC (Bld) 2.5 % . [facility] Erythrocyte distribution wid th Auto (RBC) [Ratio]Ordered By: Brando Guy on 02-10-2022 Erythrocyte distribution width (RBC) [Ratio] 13.5 % 11.9-15.3 [facility] Estimated glomerular filtrat ion rate (GFR) non- AmericanOrdered By: Brando Guy on 02-10-2022 GFR/1.73 sq M.predicted among non-blacks MDRD (S/P/Bld) [Vol rate/Area] > 60 mL/Min [facility] Globulin Calc (S) [Mass/Vol] Ordered By: Brando Guy on 02-10-2022 Globulin (S) [Mass/Vol] 2.8 g/dL [facility] HCG ( test) IA.rapi d Ql (U)Ordered By: Brando Guy on 02-10-2022 HCG ( test) Ql (U) Negative [facility] Hematocrit Auto (Bld) [Volum e fraction]Ordered By: Brando Guy on 02-10-2022 Hematocrit (Bld) [Volume fraction] 42.1 % 34.0-46.4 [facility] Ketones Auto test strip (U) [Mass/Vol]Ordered By: Brando Guy on 02-10-2022 Ketones (U) [Mass/Vol] Negative Negative [facility] - Hematology and Cell countsOrdered By: Brando Guy on 02-10-2022 Nucleated RBC/100 WBC (Bld) [Ratio] 0.0 % 0-0.5 [facility] Lymphocytes Auto (Bld) [#/Vo l]Ordered By: Brando Guy on 02-10-2022 Lymphocytes (Bld) [#/Vol] 1.9 10*3/uL 1.00-4.8 [facility] Lymphocytes/100 WBC Auto (Bl d)Ordered By: Brando Guy on 02-10-2022 Lymphocytes/100 WBC (Bld) 29.2 % . [facility] MCH Auto (RBC) [Entitic mass ]Ordered By: Brando Guy on 02-10-2022 MCH (RBC) [Entitic mass] 28.8 pg 24.7-34.3 [facility] MCHC Auto (RBC) [Mass/Vol]Or dered By: Brando Guy on 02-10-2022 MCHC (RBC) [Mass/Vol] 33.1 g/dL 32.0-35.0 [facility] MCV Auto (RBC) [Entitic vol] Ordered By: Brando Guy on 02-10-2022 MCV (RBC) [Entitic vol] 87.1 fL 80-100 [facility] Monocytes Auto (Bld) [#/Vol] Ordered By: Brando Guy on 02-10-2022 Monocytes (Bld) [#/Vol] 0.5 10*3/uL 0.0-0.8 [facility] Monocytes/100 WBC Auto (Bld) Ordered By: Brando Guy on 02-10-2022 Monocytes/100 WBC (Bld) 8.6 % . [facility] Neutrophils Auto (Bld) [#/Vo l]Ordered By: Brando Guy on 02-10-2022 Neutrophils (Bld) [#/Vol] 3.8 10*3/uL 1.8-7.7 [facility] Neutrophils/100 WBC Auto (Bl d)Ordered By: Brando Guy on 02-10-2022 Neutrophils/100 WBC (Bld) 59.0 % . [facility] Nitrite Test strip Ql (U)Ord ered By: Brando Guy on 02-10-2022 Nitrite Ql (U) Negative Negative [facility] No Panel InformationOrdered By: Brando Guy on 02-10-2022 Lamotrigine (Lamictal) Level <1.0 ug/mL 2.0-20.0 [facility] Comment on above: Detection Limit = 1. 0 Performed at: [facility] [address] [id number] Content Curator: Brent Alves MD, Phone: [phone] Estimated GFR () > 60 mL/Min [facility] Comment on above: GFR estimated refere nce range: According to KDOQI guidelines, <60 ml/min/1.73m2 is sufficient to diagnose a patient with chronic kidney disease. Pharmacy Creatinine Clearance (Chem 79.33 [facility] Platelet mean volume Auto (B ld) [Entitic vol]Ordered By: Brando Guy on 02-10-2022 Platelet mean volume (Bld) [Entitic vol] 9.1 fL 6.3-10.7 [facility] Platelets Auto (Bld) [#/Vol] Ordered By: Brando Guy on 02-10-2022 Platelets (Bld) [#/Vol] 200 10*3/uL 150-450 [facility] Prolactin [Mass/volume] in S n[place] or PlasmaOrdered By: Brando Guy on 02-10-2022 Prolactin [Mass/Vol] 28.09 ng/mL 3.34-26.72 [facility] Protein Auto test strip (U) [Mass/Vol]Ordered By: Brando Guy on 02-10-2022 Protein (U) [Mass/Vol] Negative Negative [facility] Protein [Mass/volume] in Ser um or PlasmaOrdered By: Brando Guy on 02-10-2022 Protein [Mass/Vol] 6.7 g/dL 6.1-7.9 [facility] RBC Auto (Bld) [#/Vol]Ordere d By: Brando Guy on 02-10-2022 RBC (Bld) [#/Vol] 4.84 10*6/uL 3.60-5.00 [facility] Serum or plasma alanine greene otransferase measurement without P-5'-P (enzymatic activiOrdered By: Brando Guy on 02-10-2022 ALT No additional P-5'-P [Catalytic activity/Vol] 19 U/L 10-60 [facility] Serum or plasma albumin/glob ulin mass ratioOrdered By: Brando Guy on 02-10-2022 Albumin/Globulin [Mass ratio] 1.4 {ratio} [facility] Serum or plasma alkaline donna sphatase measurement (enzymatic activity/volume)Ordered By: Brando Guy on 02-10-2022 ALP [Catalytic activity/Vol] 67 U/L 32-92 [facility] Serum or plasma aspartate am inotransferase measurement (enzymatic activity/volume)Ordered By: Brando Guy on 02-10-2022 AST [Catalytic activity/Vol] 22 U/L 10-42 [facility] Serum or plasma calcium france urement (mass/volume)Ordered By: Brando Guy on 02-10-2022 Calcium [Mass/Vol] 9.5 mg/dL 8.2-10.2 [facility] Serum or plasma chloride joanne surement (moles/volume)Ordered By: Brando Guy on 02-10-2022 Chloride [Moles/Vol] 102 mmol/L 95-114 [facility] Serum or plasma glucose france urement (mass/volume)Ordered By: Brando Guy on 02-10-2022 Glucose [Mass/Vol] 99 mg/dL 70-100 [facility] Comment on above: ADA recommended refe rence range Random Glucose Reference Range is dependent on time and content of last meal. Glucose of more than 200 mg/dL in a nonstressed, ambulatory subject supports the diagnosis of Diabetes Mellitus. Serum or plasma potassium me asurement (moles/volume)Ordered By: Brando Guy on 02-10-2022 Potassium [Moles/Vol] 3.8 mmol/L 3.5-5.1 [facility] Serum or plasma sodium measu rement (moles/volume)Ordered By: Brando Guy on 02-10-2022 Sodium [Moles/Vol] 137 mmol/L 136-146 [facility] Serum or plasma total biliru bin measurement (mass/volume)Ordered By: Brando Guy on 02-10-2022 Bilirubin [Mass/Vol] 0.5 mg/dL 0.3-1.2 [facility] Serum or plasma total carbon dioxide measurement (moles/volume)Ordered By: Brando Guy on 02-10-2022 CO2 [Moles/Vol] 26.4 mmol/L 22.0-30.0 [facility] Serum or plasma urea nitroge n measurement (mass/volume)Ordered By: Brando Guy on 02-10-2022 Urea nitrogen [Mass/Vol] 20 mg/dL 9-23 [facility] Specific gravity Auto test s trip (U) [Rel density]Ordered By: Brando Guy on 02-10-2022 Specific gravity (U) [Rel density] 1.013 1.001-1.030 [facility] Urine clarity by refractomet ry automatedOrdered By: Brando Guy on 02-10-2022 Clarity Refractometry automated (U) Clear Clear [facility] Urine glucose measurement by automated test strip (mass/volume)Ordered By: Brando Guy on 02-10-2022 Glucose Auto test strip (U) [Mass/Vol] Normal mg/dL Normal [facility] Urine hemoglobin detection b y automated test stripOrdered By: Brando Guy on 02-10-2022 Hemoglobin Auto test strip Ql (U) Negative Negative [facility] Urine leukocyte esterase det ection by automated test stripOrdered By: Brando Guy on 02-10-2022 Leukocyte esterase Auto test strip Ql (U) Negative Negative [facility] Urobilinogen Auto test strip (U) [Mass/Vol]Ordered By: Brando Guy on 02-10-2022 Urobilinogen (U) [Mass/Vol] Normal mg/dL Normal [facility] pH Auto test strip (U)Ordere d By: Brando Guy on 02-10-2022 pH (U) 6.5 [pH] 5.0-9.0 [facility] Urine culture routineOrdered By: Kristine Welsh on 01-31-2022 Bacteria identified Cx Nom (U) 2 Days [facility] Amorphous urine sedimentOrde red By: Kristine Welsh on 01-29-2022 Amorphous sediment LM Ql (Urine sed) See comment Negative [facility] Comment on above: Unable to obtain acc urate result due to color interference. Automated epithelial cells c ount in urine sediment (number/area)Ordered By: Kristine Welsh on 01-29-2022 Epithelial cells Auto (Urine sed) [#/Area] 10-19 [HPF] 0-2 [facility] Automated erythrocytes count in urine sediment (number/area)Ordered By: Kristine Welsh on 01-29-2022 RBC Auto (Urine sed) [#/Area] Innumerable [HPF] 0-4 [facility] Automated leukocytes count i n urine sediment (number/area)Ordered By: Kristine Welsh on 01-29-2022 WBC Auto (Urine sed) [#/Area] 3-4 [HPF] 0-4 [facility] Automated urine specific gra vity by refractometryOrdered By: Kristine Welsh on 01-29-2022 Specific gravity Refractometry automated (U) [Rel density] 1.036 1.001-1.030 [facility] Comment on above: Rechecked by refract ometer Bilirubin Auto test strip Ql (U)Ordered By: Kristine Welsh on 01-29-2022 Bilirubin Ql (U) See comment Negative [facility] Comment on above: Unable to obtain acc urate result due to color interference. HCG ( test) IA.rapi d Ql (U)Ordered By: Kristine Welsh on 01-29-2022 HCG ( test) Ql (U) Negative [facility] Ketones Test strip (U) [Mass /Vol]Ordered By: Kristine Welsh on 01-29-2022 Ketones (U) [Mass/Vol] See comment Negative [facility] Comment on above: Unable to obtain acc urate result due to color interference. Laboratory - Microbiology an d Antimicrobial susceptibilityOrdered By: Kristine Welsh on 01-29-2022 C. trachomatis DNA CHARLINE+probe Ql (Unsp spec) Negative Negative [facility] N. gonorrhoeae DNA CHARLINE+probe Ql (Unsp spec) Negative Negative [facility] Comment on above: Performed at: =[address] [id number] Content Curator: Sara Estes MD, Phone: [phone] Mucus LM Ql (Urine sed)Order ed By: Kristine Welsh on 01-29-2022 Mucus Ql (Urine sed) 1+ [LPF] [facility] Protein Auto test strip (U) [Mass/Vol]Ordered By: Kristine Welsh on 01-29-2022 Protein (U) [Mass/Vol] See comment Negative [facility] Comment on above: Unable to obtain acc urate result due to color interference. Urine appearanceOrdered By: Kristine Welsh on 01-29-2022 Appearance (U) Turbid Clear [facility] Urine bacteria detection by automated methodOrdered By: Kristine Welsh on 01-29-2022 Bacteria Auto Ql (U) Rare None Seen [facility] Urine colorOrdered By: rGegg Welsh on 01-29-2022 Color (U) Red Yellow [facility] Urine glucose measurement by automated test strip (mass/volume)Ordered By: Kristine Welsh on 01-29-2022 Glucose Auto test strip (U) [Mass/Vol] See comment Normal [facility] Comment on above: Unable to obtain acc urate result due to color interference. Urine leukocyte esterase det ection by automated test stripOrdered By: Kristine Welsh on 01-29-2022 Leukocyte esterase Auto test strip Ql (U) See comment Negative [facility] Comment on above: Unable to obtain acc urate result due to color interference. Urine nitrite detection by a utomated test stripOrdered By: Kristine Welsh on 01-29-2022 Nitrite Auto test strip Ql (U) See comment Negative [facility] Comment on above: Unable to obtain acc urate result due to color interference. Urobilinogen Test strip (U) [Mass/Vol]Ordered By: Kristine Welsh on 01-29-2022 Urobilinogen (U) [Mass/Vol] See comment Normal [facility] Comment on above: Unable to obtain acc urate result due to color interference. pH Auto test strip (U)Ordere d By: Kristine Welsh on 01-29-2022 pH (U) See comment 5.0-9.0 [facility] Comment on above: Unable to obtain acc urate result due to color interference. [facility] 01[facility]2022 [facility] HNO ID: [id number] Author: JENNA Jurado Service: Radiology Author Type: Manager Poker Type: [facility] Filed: 01/05/2022 3:15 PM Note Text: Radiology Service Progress Note PATIENT NAME: Kwasi Hebert DATE OF SERVICE: January 05, 2022 TIME: [...] SIGNED BY: JENNA Osei, Scarlet Del Castillo, RT(R) January 05, 2022 3:00 PM [facility] MRI BRAIN WO IVCONon 022 MRI BRAIN WO IVCON * * *Final Report* * * DATE OF EXAM: Jan 05 2022 3:16PM [facility] 0294 - MRI BRAIN WO IVCON / [...] Normal remaining brain without acute intracranial disease. Partition Assembly Machine Operator: HODAN Transcribe Date/Time: Jan 05 2022 3:24P Dictated by : SHAUN RODRIGUEZ MD This examination was interpreted and the report reviewed and electronically signed by: SHAUN RODRIGUEZ MD on Jan 05 2022 3:29PM EST [id number] N Normal [facility] CT Abdomen/Pelvis w/o Contra ston 07-21-2021 CT [...] by SHAUN ZULUAGA on 07/21/2021 1657 Normal [facility] Solid Waste Technician Vital Signs Date Time Vital Sign Value Performing Clinician Facility 09-20-2023 15:42-0500 Body height 152.4 cm Christie Lause [employer] Work Phone: [facility] 09-20-2023 15:42-0500 Body mass index (BMI) [Ratio] 27.46 kg/m2 Christie Lause [employer] Work Phone: [facility] 09-20-2023 15:42-0500 Body temperature 97.7 [degF] Christie Lause [employer] Work Phone: [facility] 09-20-2023 15:42-0500 Body weight 63.78 kg Christie Lause [employer] Work Phone: [facility] 09-20-2023 15:42-0500 Diastolic blood pressure 60 mm[Hg] Chrisite Lause [employer] Work Phone: [facility] 09-20-2023 15:42-0500 Heart rate 70 /min Christie Lause [employer] Work Phone: [facility] 09-20-2023 15:42-0500 Respiratory rate 16 /min Christie Lause [employer] Work Phone: [facility] 09-20-2023 15:42-0500 SaO2% (BldA) [Mass fraction] 98 % Christie Lause [employer] Work Phone: [facility] 09-20-2023 15:42-0500 Systolic blood pressure 122 mm[Hg] Christie Lause [employer] Work Phone: [facility] 07-11-2023 20:07-0500 Body height 152.4 cm MD Remi Andrew Work Phone: [facility] 07-11-2023 20:07-0500 Body temperature 98 [degF] MD Remi Andrew Work Phone: [facility] 07-11-2023 20:07-0500 Body weight 66.6 kg MD Remi Andrew Work Phone: [facility] 07-11-2023 20:07-0500 Diastolic blood pressure 69 mm[Hg] MD Remi Andrew Work Phone: [facility] 07-11-2023 20:07-0500 Heart rate 58 /min MD Remi Andrew Work Phone: [facility] 07-11-2023 20:07-0500 Respiratory rate 18 /min MD Remi Andrew Work Phone: [facility] 07-11-2023 20:07-0500 SaO2% (BldA) [Mass fraction] 98 % MD Remi Andrew Work Phone: [facility] 07-11-2023 20:07-0500 Systolic blood pressure 138 mm[Hg] MD Remi Andrew Work Phone: [facility] 11-22-2022 12:37-0400 Body height 152.4 cm Pacc 6 Work Phone: [facility] 11-22-2022 12:37-0400 Body temperature 98.2 [degF] Pacc 6 Work Phone: [facility] 11-22-2022 12:37-0400 Body weight 58.51 kg Pacc 6 Work Phone: [facility] 11-22-2022 12:37-0400 Diastolic blood pressure 52 mm[Hg] Pacc 6 Work Phone: [facility] 11-22-2022 12:37-0400 Heart rate 57 /min Pacc 6 Work Phone: [facility] 11-22-2022 12:37-0400 SaO2% (BldA) [Mass fraction] 99 % Pacc 6 Work Phone: [facility] 11-22-2022 12:37-0400 Systolic blood pressure 101 mm[Hg] Pacc 6 Work Phone: [facility] 11-22-2022 07:56-0400 Diastolic blood pressure 60 mm[Hg] Christiano Nichols MD Work Phone: [facility] 11-22-2022 07:56-0400 Systolic blood pressure 116 mm[Hg] Christiano Nichols MD Work Phone: [facility] 11-22-2022 07:54-0400 Body weight 56.7 kg Christiano Nichols MD Work Phone: [facility] 11-22-2022 07:54-0400 Heart rate 59 /min Christiano Nichols MD Work Phone: [facility] 11-22-2022 07:54-0400 SaO2% (BldA) [Mass fraction] 96 % Christiano Nichols MD Work Phone: [facility] 10-12-2022 13:51-0500 Body height 152.4 cm Robert Marin MD Work Phone: [facility] 10-12-2022 13:51-0500 Body weight 56.7 kg Robert Marin MD Work Phone: [facility] 10-12-2022 13:51-0500 Diastolic blood pressure 56 mm[Hg] Robert Marin MD Work Phone: [facility] 10-12-2022 13:51-0500 Heart rate 57 /min Robert Marin MD Work Phone: [facility] 10-12-2022 13:51-0500 Respiratory rate 17 /min Robert Marin MD Work Phone: [facility] 10-12-2022 13:51-0500 SaO2% (BldA) [Mass fraction] 98 % Robert Marin MD Work Phone: [facility] 10-12-2022 13:51-0500 Systolic blood pressure 110 mm[Hg] Robert Marin MD Work Phone: [facility] 10-03-2022 02:51-0500 Diastolic blood pressure 57 mm[Hg] MD Remi Andrew Work Phone: [facility] 10-03-2022 02:51-0500 Heart rate 99 /min MD Remi Andrew Work Phone: [facility] 10-03-2022 02:51-0500 Respiratory rate 18 /min MD Remi Andrew Work Phone: [facility] 10-03-2022 02:51-0500 SaO2% (BldA) [Mass fraction] 100 % MD Remi Andrew Work Phone: [facility] 10-03-2022 02:51-0500 Systolic blood pressure 112 mm[Hg] MD Remi Andrew Work Phone: [facility] 10-02-2022 20:13-0500 Body height 154.94 cm MD Remi Andrew Work Phone: [facility] 10-02-2022 20:13-0500 Body weight 57.3 kg MD Remi Andrew Work Phone: [facility] 10-02-2022 19:54-0500 Body temperature 97 [degF] MD Remi Andrew Work Phone: [facility] 08-26-2022 09:30-0500 Diastolic blood pressure 54 mm[Hg] MD Remi Andrew Work Phone: [facility] 08-26-2022 09:30-0500 Heart rate 86 /min MD Remi Andrew Work Phone: [facility] 08-26-2022 09:30-0500 Respiratory rate 16 /min MD Remi Andrew Work Phone: [facility] 08-26-2022 09:30-0500 SaO2% (BldA) [Mass fraction] 98 % MD Remi Andrew Work Phone: [facility] 08-26-2022 09:30-0500 Systolic blood pressure 113 mm[Hg] MD Remi Andrew Work Phone: [facility] 08-25-2022 13:14-0500 Body height 152.4 cm MD Remi Andrew Work Phone: [facility] 08-25-2022 13:14-0500 Body temperature 98.8 [degF] MD Remi Andrew Work Phone: [facility] 08-25-2022 13:14-0500 Body weight 58 kg MD Remi Andrew Work Phone: [facility] 07-15-2022 01:30-0500 Diastolic blood pressure 67 mm[Hg] MD Remi Andrew Work Phone: [facility] 07-15-2022 01:30-0500 Heart rate 78 /min MD Remi Andrew Work Phone: [facility] 07-15-2022 01:30-0500 Respiratory rate 16 /min MD Remi Andrew Work Phone: [facility] 07-15-2022 01:30-0500 SaO2% (BldA) [Mass fraction] 98 % MD Remi Andrew Work Phone: [facility] 07-15-2022 01:30-0500 Systolic blood pressure 115 mm[Hg] MD Remi Andrew Work Phone: [facility] 07-14-2022 23:54-0500 Body temperature 98.5 [degF] MD Remi Andrew Work Phone: [facility] 07-14-2022 19:55-0500 Body height 152.4 cm MD Remi Andrew Work Phone: [facility] 07-14-2022 19:55-0500 Body weight 5 kg MD Remi Andrew Work Phone: [facility] 04-05-2022 02:22-0400 Diastolic blood pressure 61 mm[Hg] MD Remi Andrew Work Phone: [facility] 04-05-2022 02:22-0400 Heart rate 54 /min MD Remi Andrew Work Phone: [facility] 04-05-2022 02:22-0400 Respiratory rate 18 /min MD Remi Andrew Work Phone: [facility] 04-05-2022 02:22-0400 SaO2% (BldA) [Mass fraction] 98 % MD Remi Andrew Work Phone: [facility] 04-05-2022 02:22-0400 Systolic blood pressure 107 mm[Hg] MD Remi Andrew Work Phone: [facility] 04-04-2022 23:47-0400 Body temperature 98.4 [degF] MD Remi Andrew Work Phone: [facility] 04-04-2022 23:46-0400 Body height 152.4 cm MD Remi Andrew Work Phone: [facility] 04-04-2022 23:46-0400 Body weight 59.96 kg MD Remi Andrew Work Phone: [facility] 03-14-2022 17:15-0400 Diastolic blood pressure 83 mm[Hg] MD Remi Andrew Work Phone: [facility] 03-14-2022 17:15-0400 Heart rate 74 /min MD Remi Andrew Work Phone: [facility] 03-14-2022 17:15-0400 Respiratory rate 16 /min MD Remi Andrew Work Phone: [facility] 03-14-2022 17:15-0400 SaO2% (BldA) [Mass fraction] 100 % MD Remi Andrew Work Phone: [facility] 03-14-2022 17:15-0400 Systolic blood pressure 120 mm[Hg] MD Remi Andrew Work Phone: [facility] 03-14-2022 14:57-0400 Body temperature 98.1 [degF] MD Remi Andrew Work Phone: [facility] 03-14-2022 14:54-0400 Body height 152.4 cm MD Remi Andrew Work Phone: [facility] 03-14-2022 14:54-0400 Body weight 58 kg MD Remi Andrew Work Phone: [facility] 02-10-2022 08:44-0400 Body temperature 96.8 [degF] MD Remi Andrew Work Phone: [facility] 02-10-2022 08:25-0400 Diastolic blood pressure 56 mm[Hg] MD Remi Andrew Work Phone: [facility] 02-10-2022 08:25-0400 Heart rate 55 /min MD Remi Andrew Work Phone: [facility] 02-10-2022 08:25-0400 Respiratory rate 16 /min MD Remi Andrew Work Phone: [facility] 02-10-2022 08:25-0400 SaO2% (BldA) [Mass fraction] 97 % MD Remi Andrew Work Phone: [facility] 02-10-2022 08:25-0400 Systolic blood pressure 113 mm[Hg] MD Remi Andrew Work Phone: [facility] 02-10-2022 06:03-0400 Body height 152.4 cm MD Remi Andrew Work Phone: [facility] 02-10-2022 06:03-0400 Body mass index (BMI) [Percentile] Per age and sex 76 % MD Remi Andrew Work Phone: [facility] 02-10-2022 06:03-0400 Body mass index (BMI) [Ratio] 24.4 kg/m2 MD Remi Andrew Work Phone: [facility] 02-10-2022 06:03-0400 Body weight 56.69 kg MD Remi Andrew Work Phone: [facility] 01-29-2022 16:57-0400 Body height 154.94 cm MD Remi Andrew Work Phone: [facility] 01-29-2022 16:57-0400 Body mass index (BMI) [Percentile] Per age and sex 79.6 % MD Remi Andrew Work Phone: [facility] 01-29-2022 16:57-0400 Body mass index (BMI) [Ratio] 25 kg/m2 MD Remi Andrew Work Phone: [facility] 01-29-2022 16:57-0400 Body temperature 98.5 [degF] MD Remi Andrew Work Phone: [facility] 01-29-2022 16:57-0400 Body weight 60 kg MD Remi Andrew Work Phone: [facility] 01-29-2022 16:57-0400 Diastolic blood pressure 63 mm[Hg] MD Remi Andrew Work Phone: [facility] 01-29-2022 16:57-0400 Heart rate 82 /min MD Remi Andrew Work Phone: [facility] 01-29-2022 16:57-0400 Respiratory rate 16 /min MD Remi Andrew Work Phone: [facility] 01-29-2022 16:57-0400 SaO2% (BldA) [Mass fraction] 97 % MD Remi Andrew Work Phone: [facility] 01-29-2022 16:57-0400 Systolic blood pressure 120 mm[Hg] MD Remi Andrew Work Phone: [facility] 12-22-2021 10:17-0400 Body height 152.4 cm Robert Marin MD Work Phone: [facility] 12-22-2021 10:17-0400 Body mass index (BMI) [Percentile] Per age and sex 83.81 % Robert Marin MD Work Phone: [facility] 12-22-2021 10:17-0400 Body weight 60.06 kg Robert Marin MD Work Phone: [facility] 12-22-2021 10:17-0400 Diastolic blood pressure 51 mm[Hg] Robert Marin MD Work Phone: [facility] 12-22-2021 10:17-0400 Heart rate 51 /min Robert Marin MD Work Phone: [facility] 12-22-2021 10:17-0400 Respiratory rate 19 /min Robert Marin MD Work Phone: [facility] 12-22-2021 10:17-0400 SaO2% (BldA) [Mass fraction] 99 % Robert Marin MD Work Phone: [facility] 12-22-2021 10:17-0400 Systolic blood pressure 106 mm[Hg] Robert Marin MD Work Phone: [facility] Encounters Encounter Date Encounter Type Care Provider Facility Start: 07-31-2024 End: 07-31-2024 E-mail encounter from caregiver Melida Urrutia [facility] Work Phone: Neurology Start: 07-31-2024 End: 07-31-2024 ambulatory Mleida Urrutia RP Work Phone: Neurology Comment on above: Pharmacy Visit [place] Partial epilepsy wit h impairment of consciousness, intractable (HCC) (Primary Dx) Start: 07-31-2024 End: 07-31-2024 Telemedicine consultation with patient Melida Urrutia [facility] Work Phone: Neurology Start: 07-26-2024 End: 07-29-2024 Clinisync Result Encounter Generic External Data Provider [facility] External Department Unsolicited Start: 07-26-2024 End: 07-29-2024 Clinisync Result Encounter Generic External Data Provider [facility] External Department Unsolicited Start: 07-26-2024 End: 07-26-2024 ambulatory REMI ANDREW Facility:[facility] Start: 07-25-2024 End: 07-29-2024 ambulatory Robert Marin MD Work Phone: Neurology Comment on above: Blood work schedulin g Start: 07-25-2024 End: 07-25-2024 Telephone encounter Robert Marin MD Work Phone: Neurology Comment on above: Medication Problem ( Briviact) Start: 07-19-2024 End: 07-22-2024 Refill Belén Peck PA-C Work Phone: Neurology Comment on above: Refill Request Start: 06-19-2024 End: 06-24-2024 Refill Christiekaren Aldana CASKET LINER Work Phone: [facility] Comment on above: Vitamin D deficiency Start: 06-10-2024 End: 06-10-2024 ambulatory Robert Marin MD Work Phone: Neurology Comment on above: Partial symptomatic epilepsy with complex partial seizures, not intractable, 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) Start: 06-10-2024 End: 06-10-2024 Telemedicine consultation with patient Robert Marin MD Work Phone: Neurology Start: 05-31-2024 End: 05-31-2024 Telephone encounter Robert Marin MD Work Phone: Neurology Comment on above: Forms (BMV) Start: 05-27-2024 End: 05-28-2024 ambulatory Robert Marin MD Work Phone: Neurology Comment on above: Paperwork Start: 05-04-2024 End: 05-06-2024 Refill Belén Peck PA-C Work Phone: Neurology Comment on above: Refill Request Start: 04-29-2024 End: 04-29-2024 ambulatory FEROZ DUFF Facility:[facility] Start: 03-28-2024 End: 03-28-2024 ambulatory MD Remi Andrew Work Phone: [facility] Work Phone: Start: 03-28-2024 End: 03-28-2024 Patient encounter procedure MD Remi Andrew Work Phone: [facility] Start: 03-28-2024 End: 03-28-2024 ambulatory ESSENCE PATEL Not Available Start: 03-26-2024 End: 03-26-2024 ambulatory REMI ANDREW Facility:[facility] Start: 01-25-2024 End: 01-25-2024 ambulatory Robert Marin MD Work Phone: Neurology Comment on above: Driving papers Start: 01-25-2024 Refill Delia Tellez Work Phone: Neurology Comment on above: Refill Request Start: 01-25-2024 End: 01-25-2024 Admission to same day surgery center Claudio Michaels KNITTED GARMENT FINISHER.WORLD TRAVEL COUNSELOR Work Phone: Neurosurgery Comment on above: Partial symptomatic epilepsy with complex partial seizures, not intractable, 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); S/P brain surgery Start: 01-25-2024 End: 01-25-2024 Telemedicine consultation with patient Claudio Michaels APRN.WORLD TRAVEL COUNSELOR Work Phone: Neurosurgery Start: 01-12-2024 ambulatory Robert Marin MD Work Phone: Neurology Comment on above: [employer]? Start: 01-05-2024 End: 01-05-2024 ambulatory ESSENCE PATEL Not Available Start: 10-29-2023 Refill Sarahy Danese A PRN.WORLD TRAVEL COUNSELOR Work Phone: Neurology Comment on above: Refill Request Start: 10-29-2023 Refill Sarahy Danese A PRN.WORLD TRAVEL COUNSELOR Work Phone: Neurology Comment on above: Refill Request Start: 10-25-2023 End: 10-26-2023 ambulatory Robyn Bundy [place] Start: 10-25-2023 End: 10-25-2023 ambulatory CHRISTIE ALDANA Not Available Start: 10-25-2023 End: 10-25-2023 Lab Drop off Robyn Bundy [facility] Start: 09-20-2023 End: 09-20-2023 ambulatory CHRISTIE ALDANA Not Available Start: 09-20-2023 End: 09-20-2023 Office outpatient visit 15 minutes Christie Aldana CASKET LINER Work Phone: [facility] Comment on above: Other epilepsy witho ut status epilepticus, not intractable (CMS/HCC) (Primary Dx); Anxiety and depression (CMS/HCC); S/P brain surgery; Seizure (CMS/HCC) Start: 09-20-2023 Chart abstracting Christie Cruz Kira use CASKET LINER Work Phone: [facility] Start: 09-14-2023 Clinisync Result Encounter Generic External Data Provider [facility] External Department Unsolicited Start: 09-14-2023 Clinisync Result Encounter Generic External Data Provider [facility] External Department Unsolicited Start: 09-14-2023 Telephone encounter Robert camp MD Work Phone: Neurology Comment on above: Patient Update Start: 09-02-2023 End: 09-02-2023 ambulatory SERGEI HARRISON Not Available Start: 07-25-2023 ambulatory Robert Marin MD Work Phone: Neurology Comment on above: New medicine Start: 07-24-2023 End: 07-24-2023 ambulatory Robert Marin MD Work Phone: Neurology Comment on above: Partial symptomatic epilepsy with complex partial seizures, not intractable, 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); Recurrent major depression in partial remission (HCC) Start: 07-24-2023 End: 07-24-2023 Telemedicine consultation with patient Robert Marin MD Work Phone: [facility] Start: 07-21-2023 End: 07-21-2023 Patient encounter procedure Claudio Michaels APRN.CNP Work Phone: Neurosurgery Comment on above: Partial [...] patient visit MD Remi Andrew Work Phone: [facility] Work Phone: Start: 06-30-2023 End: 06-30-2023 ambulatory CHRISTIE ALDANA Not Available Start: 05-25-2023 Telephone encounter Robert camp MD Work Phone: Neurology Comment on above: Forms (Panfilo mae ) Start: 04-20-2023 Refill Robert Marin MD Work Phone: Neurology Comment on above: Refill Request Start: 03-17-2023 Refill Robert Marin MD Work Phone: Neurology Comment on above: Refill Request Start: 03-10-2023 Chart abstracting Robert cruz MD Work Phone: Neurology Start: 03-09-2023 End: 03-09-2023 ambulatory Evaristo Torres PA-C Work Phone: Neurosurgery Comment on above: S/P craniotomy (Prim jonah Dx) Start: 03-09-2023 End: 03-09-2023 Telemedicine consultation with patient Evaristo Torres PA-C Work Phone: [facility] Start: 02-07-2023 End: 02-07-2023 Nursing evaluation of patient and report Melida Martin RN Neurosurgery Comment on above: Visit for suture rem oval (Primary Dx) Start: 01-27-2023 Telephone encounter Jess sanchez MD Work Phone: Neurology Comment on above: Received Outside Med [facility] Records ([facility] ) Start: 01-24-2023 End: 01-24-2023 Patient encounter status Mri (I-Stat/1.5t/3t) Work Phone: MRI Q Start: 01-24-2023 End: 01-24-2023 Preprocedural examination done Mri (I-Stat/1.5t/3t) Work Phone: MRI Q Start: 01-24-2023 End: 01-24-2023 Subsequent hospital visit by physician Mri 3 Radio Main Q (I-Stat/1.5t/3t) Work Phone: MRI Q Comment on above: Encounter for other preprocedural examination [Z01.818] Start: 01-12-2023 Telephone encounter Jess sanchez MD Work Phone: Neurology Comment on above: Received Outside Med ical Records ([facility]) Start: 01-10-2023 End: 01-10-2023 Admission to same day surgery center Jess David MD Work Phone: Neurosurgery Comment on above: Partial symptomatic epilepsy with complex partial seizures, not intractable, 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); Refractory epilepsy (HCC); Seizure (HCC); S/P brain surgery Schedule Surgery (ri ght-sided temporal craniotomy/) Start: 01-10-2023 ambulatory Jess solares MD Work Phone: [facility] Start: 01-10-2023 Patient encounter status Jose J David MD Work Phone: Neurosurgery Start: 01-10-2023 Preprocedural examination done Jess David MD Work Phone: Neurosurgery Start: 01-10-2023 End: 01-10-2023 Telemedicine consultation with patient Jess David MD Work Phone: [facility] Start: 01-05-2023 Telephone encounter Jess sanchez MD Work Phone: Neurosurgery Comment on above: Tip Out Worker - O ther Start: 12-26-2022 Telephone encounter Jess sanchez MD Work Phone: Neurology Comment on above: Tip Out Worker - O ther Acute deep vein thro mbosis (DVT) of brachial vein of left upper extremity (HCC) (Primary Dx) Start: 12-23-2022 Telephone encounter Jess sanchez MD Work Phone: Neurosurgery Comment on above: Tip Out Worker - O ther Start: 12-06-2022 Chart abstracting Tomas sánchez MD Work Phone: [facility] Start: 11-23-2022 Telephone encounter Jess sanchez MD Work Phone: Neurosurgery Comment on above: Results; Care Coordi nator - Other Start: 11-22-2022 End: 11-22-2022 Nursing evaluation of patient and report Melida Martin RN Neurosurgery Comment on above: Preoperative examina tion (Primary Dx) Start: 11-22-2022 End: 11-22-2022 Preprocedural examination done Melida Martin RN Neurosurgery Start: 11-22-2022 End: 11-22-2022 Admission to establishment Pacc Main 6 Work Phone: [facility] Start: 11-22-2022 End: 11-22-2022 ambulatory Pacc Main 6 Work Phone: Pre Anesthesia Comment on above: Pre-op evaluation (P rimary Dx) Start: 11-22-2022 End: 11-22-2022 Preprocedural examination done Pacc Main 6 Work Phone: Pre Anesthesia Start: 11-22-2022 End: 11-22-2022 Subsequent hospital visit by physician Mri 3 Radio Main Q (I-Stat/1.5t/3t) Work Phone: MRI Q Comment on above: Encounter for other preprocedural examination [Z01.818] Start: 11-22-2022 End: 11-22-2022 Patient encounter procedure Christiano Nichols MD Work Phone: Cardiology Comment on above: Preoperative cardiov ascular examination (Primary Dx); Partial symptomatic epilepsy with complex partial seizures, not intractable, without status epilepticus (HCC); Preoperative testing Start: 11-22-2022 End: 11-22-2022 Patient encounter status Christiano Nichols MD Work Phone: MRI Q Start: 10-21-2022 Orders Only Christiano Oriana wooten MD Work Phone: Cardiology Comment on above: Pre-op evaluation (P rimary Dx) Start: 10-21-2022 Preprocedural examination done Christiano Nichols MD Work Phone: Cardiology Start: 10-19-2022 Admission to [facility] Jess David MD Work Phone: Neurosurgery Comment on above: Schedule Surgery (Ri ght SEEG) Start: 10-19-2022 ambulatory Jess solares MD Work Phone: [facility] Start: 10-19-2022 Patient encounter status Jose J David MD Work Phone: Neurosurgery Start: 10-18-2022 End: 10-18-2022 Subsequent hospital visit by physician Jenna Singh [facility] Research (7t) Work Phone: Radiology Comment on above: Partial symptomatic epilepsy with complex partial seizures, not intractable, without status epilepticus (HCC) [G40.209] Start: 10-17-2022 End: 10-17-2022 ambulatory Jess David MD Work Phone: Neurosurgery Comment on above: Partial symptomatic epilepsy with complex partial seizures, not intractable, 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); Seizure (HCC) Start: 10-17-2022 End: 10-17-2022 Telemedicine consultation with patient Jess David MD Work Phone: [facility] Start: 10-12-2022 End: 10-12-2022 Patient encounter procedure Robert Marin MD Work Phone: Neurology Comment on above: Partial symptomatic epilepsy with complex partial seizures, not intractable, 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); Seizure (HCC) Start: 10-02-2022 End: 10-03-2022 Emergency department patient visit MD Remi Andrew Work Phone: [facility] Work Phone: Start: 09-28-2022 End: 09-28-2022 ambulatory Robert Marin MD Work Phone: Neurology Comment on above: Partial symptomatic epilepsy with complex partial seizures, not intractable, 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) Start: 09-28-2022 End: 09-28-2022 Telemedicine consultation with patient Robert Marin MD Work Phone: [facility] Start: 09-20-2022 ambulatory Robert Marin MD [...] epilepticus (HCC) [G40.209] Start: 09-03-2022 ambulatory Nurse Network Support Specialist NURSE MATERIAL HANDLING WAREHOUSE SUPERVISOR Comment on above: Medication Problem ( Possible side effects to medication) Start: 08-31-2022 Chart abstracting Katelin dean Research Coordinator Neurology Start: 08-30-2022 Telephone encounter Robert camp MD Work Phone: Neurology Comment on above: Nm Pet Request Start: 08-29-2022 Chart abstracting Katelin dean Research Coordinator Neurology Comment on above: Informed Consent (IR B [id number]) Start: 08-25-2022 Telephone encounter Robert camp MD Work Phone: Neurology Comment on above: Other ([facility] ED calling to speak with Dr. Marin; pt in ED d/t seizures) Start: 08-25-2022 End: 08-26-2022 Emergency department patient visit MD Remi Andrew Work Phone: [facility] Work Phone: Start: 07-14-2022 End: 07-15-2022 Emergency department patient visit MD Remi Andrew Work Phone: [facility] Start: 07-11-2022 End: 07-11-2022 ambulatory Robert Marin MD Work Phone: Neurology Comment on above: Partial symptomatic epilepsy with complex partial seizures, not intractable, 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) Start: 07-11-2022 End: 07-11-2022 Telemedicine consultation with patient Robert Marin MD Work Phone: [facility] Start: 06-16-2022 Telephone encounter Robert camp MD Work Phone: Neurology Comment on above: Forms ([facility] b oard of DD/) Start: 05-03-2022 End: 05-03-2022 ambulatory Jorge Galvez MD Work Phone: Cardiology Comment on above: Palpitations [R00.2 (ICD-10-CM)] (Primary Dx) Start: 05-03-2022 End: 05-03-2022 Telemedicine consultation with patient Jorge Galvez MD Work Phone: [facility] Start: 04-27-2022 ambulatory Jorge Galvez MD [...] patient visit MD Remi Andrew Work Phone: [facility] Start: 03-28-2022 End: 03-28-2022 ambulatory Robert Marin MD Work Phone: Neurology Comment on above: Partial symptomatic epilepsy with complex partial seizures, not intractable, without status epilepticus (HCC) Start: 03-28-2022 End: 03-28-2022 Telemedicine consultation with patient Robert Marin MD Work Phone: [facility] Start: 03-16-2022 End: 03-16-2022 Patient encounter procedure MD Remi Andrew Work Phone: [facility] Start: 03-14-2022 End: 03-14-2022 Emergency department patient visit MD Remi Andrew Work Phone: [facility] Start: 03-14-2022 Telephone encounter Robert camp MD Work Phone: Neurology Comment on above: Medication Problem ( AEDs - Shaky, Lightheaded, Increased Heart Rate) Start: 02-10-2022 Telephone encounter Robert camp MD Work Phone: Neurology Comment on above: medication concern ( lamical and keppra) Seizures Start: 02-10-2022 End: 02-10-2022 Emergency department patient visit MD Remi Andrew Work Phone: [facility] Start: 01-29-2022 End: 01-29-2022 Emergency department patient visit MD Remi Andrew Work Phone: [facility] Start: 01-05-2022 End: 01-05-2022 Subsequent hospital visit by physician Mr Lakeisha Holland (Istat/3t) Work Phone: [facility] Radiology MRI Comment on above: Partial symptomatic epilepsy with complex partial seizures, not intractable, without status epilepticus (HCC) [G40.209] Start: 12-23-2021 Telephone encounter Robert camp MD Work Phone: Neurology Comment on above: medication concern ( vimpat issues) Start: 12-22-2021 End: 12-22-2021 Patient encounter procedure Robert Mrain MD Work Phone: Neurology Comment on above: Partial symptomatic epilepsy with complex partial seizures, not intractable, without status epilepticus (HCC) Start: 11-18-2021 Patient encounter procedure Radha Cotter WORLD TRAVEL COUNSELOR Work Phone: Neurology Comment on above: Convulsions, unspeci fied convulsion type (HCC) (Primary Dx) Procedures Date Procedure Procedure Detail Performing Clinician Start: 07-26-2024 BRIVARACETAM SERPL-[facility] Generic External Data Provider Start: 09-14-2023 [facility] CULTURE URINE Generic External Data Provider Start: 07-21-2023 Mri brain brain stem w/o contrast material Claudio Michaels APRN.CNP Work Phone: Start: 01-24-2023 Unlisted magnetic resonance procedure Evaristo Torres PA-C Work Phone: Start: 12-03-2022 H/O: surgery S/P brain surgery Tomas Morrison MD Work Phone: Start: 11-22-2022 Ct angiography head w/contrast/noncontrast Evaristo Torres PA-C Work Phone: Start: 11-22-2022 Unlisted magnetic resonance procedure Evaristo Torres PA-C Work Phone: Start: 10-18-2022 Mri brain brain stem w/o contrast material Robert Marin MD Work Phone: Start: 10-02-2022 SARS-CoV-2, Influenza & RSV (PCR) MD Remi Andrew Work Phone: Start: 09-16-2022 Magnetoencephalography spon brain activity Leena Greenberg PA-C Work Phone: Start: 09-08-2022 MRI 3D POST PROCESSING Leena Greenberg PA-C Work Phone: Start: 09-08-2022 MRI BRAIN FUNCTIONAL W PHYS WO IVCON Leena Greenberg PA-C Work Phone: Start: 08-25-2022 SARS Antigen (LFIA) MD Remi Andrew Work Phone: Start: 08-25-2022 Urine culture MD Remi Andrew Work Phone: Start: 07-15-2022 CT of abdomen and pelvis without contrast MD Remi Andrew Work Phone: Start: 07-14-2022 Urine culture MD Remi Andrew Work Phone: Start: 03-27-2022 Adult depression screening assessment Robert Marin MD Work Phone: Start: 03-14-2022 Plain chest X-ray MD Remi Andrew Work Phone: Start: 01-05-2022 Mri brain brain stem w/o contrast material Robert Marin MD Work Phone: Start: 12-21-2021 Adult depression screening assessment Robert Marin MD Work Phone: Bacteria identification test MD Remi Andrew Work Phone: H/O: surgery S/P brain surgery Jess sanchez MD Work Phone: H/O: surgery S/P brain surgery Robert camp MD Work Phone: H/O: surgery S/P brain surgery Claudio Michaels KNITTED GARMENT FINISHER.WORLD TRAVEL COUNSELOR Work Phone: H/O: surgery S/P brain surgery Christie Aldana CASKET LINER Work Phone: H/O: surgery S/P brain surgery Claudio Michaels KNITTED GARMENT FINISHER.WORLD TRAVEL COUNSELOR Work Phone: Urine culture MD Remi cruz Work Phone: Plan of Treatment Date Care Activity Detail Author Start: 04-10-2025 Urine microalbumin profile [facility] Start: 07-31-2024 End: 07-31-2024 ambulatory 07/31/2024 11:30 AM [place] [id number] Melida Urrutia [facility] [address] [facility] [address] [place] [id number] Pharmacy f/u Neurology Comment on above: Pharmacy f/u Start: 07-25-2024 End: 10-24-2024 Brivaracetam [Mass/volume] in Serum or Plasma BRIVARACETAM Lab Routine Partial epilepsy with impairment of consciousness, intractable (HCC) Expected: 07/25/2024, Expires: 10/24/2024 [facility] Work Phone: Comment on above: Expected: 07/25/2024 , Expires: 10/24/2024 Start: 06-10-2024 End: 06-10-2024 ambulatory 06/10/2024 9:30 AM EDT [facility] Neurology [address] [id number] Robert Marin MD [address] [place] [address] Driving privileges update paperwork after 04/02/24 Neurology Comment on above: Driving privileges u pdate paperwork after 04/02/24 Start: 04-14-2024 Covid-19 Vaccine ( season) Covid-19 Vaccine ( season) [facility] Start: 04-14-2024 Influenza vaccination [facility] Start: 02-11-2024 Influenza vaccination Influenza Vacc ine (#1) [facility] Comment on above: Postponed from 04/14 (Patient Refused) Start: 01-25-2024 End: 01-25-2024 Follow-up encounter 01/25/2024 9:00 AM EDT [facility] Neurosurgery [address] [id number] Claudio Michaels, KENIA.WORLD TRAVEL COUNSELOR [address] [place] [address] 1 year follow up Neurosurgery Comment on above: 1 year follow up Start: 10-15-2023 Screening for malign ant neoplasm of cervix [facility] Start: 09-20-2023 End: 09-20-2023 Patient encounter procedure 09/20/2023 3:40 PM EST Office Visit [facility] [address] [place] [id number] Christie Aldana, CASKET LINER [address] [place] [address] [facility] Start: 04-14-2023 Covid-19 Vaccine ( season) Covid-19 Vaccine () [facility] Start: 04-14-2023 Influenza vaccination [facility] Start: 03-27-2023 Adult depression screening assessment DEPRESSION SCREENING [facility] Start: 01-24-2023 End: 03-26-2023 aPTT in Platelet poor plasma by Coagulation assay ACTIVATED PTT Lab Routine Preoperative examination Expected: 01/24/2023, Expires: 03/26/2023 [facility] Work Phone: Comment on above: Expected: 01/24/2023 , Expires: 03/26/2023 Start: 01-24-2023 End: 03-26-2023 CBC panel - Blood by Automated count CBC Lab Routine Preoperative examination Expected: 01/24/2023, Expires: 03/26/2023 [facility] Work Phone: Comment on above: Expected: 01/24/2023 , Expires: 03/26/2023 Start: 01-24-2023 End: 03-26-2023 Comprehensive metabolic 2000 panel - Serum or Plasma COMP METABOLIC PANEL Lab Routine Preoperative examination Expected: 01/24/2023, Expires: 03/26/2023 [facility] Work Phone: Comment on above: Expected: 01/24/2023 , Expires: 03/26/2023 Start: 01-24-2023 End: 03-26-2023 PT panel - Platelet poor plasma by Coagulation assay PROTHROMBIN TIME/PT Lab Routine Preoperative examination Expected: 01/24/2023, Expires: 03/26/2023 [facility] Work Phone: Comment on above: Expected: 01/24/2023 , Expires: 03/26/2023 Start: 01-24-2023 End: 07-09-2023 STAPH AUREUS PCR STAPH AUREUS PCR Lab Routine Preoperative examination Expected: 01/24/2023, Expires: 07/09/2023 [facility] Work Phone: Comment on above: Expected: 01/24/2023 , Expires: 07/09/2023 Start: 01-06-2023 End: 01-25-2024 US DVT UPPER LEFT US DVT UPPER LEFT Radiology Routine Acute deep vein thrombosis (DVT) of axillary vein of left upper extremity (HCC) Expected: 01/06/2023, Expires: 01/25/2024 [facility] Work Phone: Comment on above: Expected: 01/06/2023 , Expires: 01/25/2024 Start: 01-04-2023 End: 12-27-2023 US ARM VEIN DVT UNL VAS LAB US ARM VEIN DVT UNL VAS LAB Vascular Lab Routine Acute deep vein thrombosis (DVT) of brachial vein of left upper extremity (HCC) Expected: 01/04/2023, Expires: 12/27/2023 [facility] Work Phone: Comment on above: Expected: 01/04/2023 , Expires: 12/27/2023 Start: 12-28-2022 End: 12-27-2023 US ARM VEIN DVT UNL VAS LAB US ARM VEIN DVT UNL VAS LAB Vascular Lab Routine Acute deep vein thrombosis (DVT) of brachial vein of left upper extremity (HCC) Expected: 12/28/2022, Expires: 12/27/2023 [facility] Work Phone: Comment on above: Expected: 12/28/2022 , Expires: 12/27/2023 Start: 12-27-2022 End: 01-25-2024 US DVT UPPER LEFT US DVT UPPER LEFT Radiology Routine Acute deep vein thrombosis (DVT) of axillary vein of left upper extremity (HCC) Expected: 12/27/2022, Expires: 01/25/2024 [facility] Work Phone: Comment on above: Expected: 12/27/2022 , Expires: 01/25/2024 Start: 12-21-2022 Adult depression screening assessment DEPRESSION SCREENING [facility] Start: 11-22-2022 End: 01-22-2023 aPTT in Platelet poor plasma by Coagulation assay ACTIVATED PTT Lab Routine Preoperative testing Expected: 11/22/2022, Expires: 01/22/2023 [facility] Work Phone: Comment on above: Expected: 11/22/2022 , Expires: 01/22/2023 Start: 11-22-2022 End: 01-22-2023 CBC panel - Blood by Automated count CBC Lab Routine Preoperative testing Expected: 11/22/2022, Expires: 01/22/2023 [facility] Work Phone: Comment on above: Expected: 11/22/2022 , Expires: 01/22/2023 Start: 11-22-2022 End: 01-22-2023 Comprehensive metabolic 2000 panel - Serum or Plasma COMP METABOLIC PANEL Lab Routine Preoperative testing Expected: 11/22/2022, Expires: 01/22/2023 [facility] Work Phone: Comment on above: Expected: 11/22/2022 , Expires: 01/22/2023 Start: 11-22-2022 End: 01-22-2023 CONFIRM BLOOD TYPE CONFIRM BLOOD TYPE Blood Bank Routine Preoperative testing Expected: 11/22/2022, Expires: 01/22/2023 [facility] Work Phone: Comment on above: Expected: 11/22/2022 , Expires: 01/22/2023 Start: 11-22-2022 End: 11-18-2023 CTA HEAD W IVCON CTA HEAD W IVCON Radiology Routine Encounter for other preprocedural examination Partial symptomatic epilepsy with complex partial seizures, not intractable, without status epilepticus (HCC) Preoperative testing Expected: 11/22/2022, Expires: 11/18/2023 [facility] Work Phone: Comment on above: Expected: 11/22/2022 , Expires: 11/18/2023 Start: 11-22-2022 End: 01-22-2023 PT panel - Platelet poor plasma by Coagulation assay PROTHROMBIN TIME/PT Lab Routine Preoperative testing Expected: 11/22/2022, Expires: 01/22/2023 [facility] Work Phone: Comment on above: Expected: 11/22/2022 , Expires: 01/22/2023 Start: 11-22-2022 End: 04-17-2023 STAPH AUREUS PCR STAPH AUREUS PCR Lab Routine Preoperative testing Expected: 11/22/2022, Expires: 04/17/2023 [facility] Work Phone: Comment on above: Expected: 11/22/2022 , Expires: 04/17/2023 Start: 11-22-2022 End: 01-22-2023 TYPE AND SCREEN,30 DAY TYPE AND SCREEN,30 DAY Blood Bank Routine Preoperative testing Expected: 11/22/2022, Expires: 01/22/2023 [facility] Work Phone: Comment on above: Expected: 11/22/2022 , Expires: 01/22/2023 Start: 11-22-2022 End: 11-18-2023 Unlisted magnetic resonance procedure MRI BRAIN LOCALIZATION W IVCON Radiology Routine Encounter for other preprocedural examination Partial symptomatic epilepsy with complex partial seizures, not intractable, without status epilepticus (HCC) Preoperative testing Expected: 11/22/2022, Expires: 11/18/2023 [facility] Work Phone: Comment on above: Expected: 11/22/2022 , Expires: 11/18/2023 Start: 10-02-2022 CT of head without contrast CT head/brain wo con [facility] Start: 10-02-2022 CT Unspecified body region WO contrast [facility] Start: 10-02-2022 Bacteria identified in Urine by Culture [facility] Start: 09-29-2022 End: 11-29-2022 AUTOIMMUNE ENCEPHALOPATHY EVALUATION, SERUM AUTOIMMUNE ENCEPHALOPATHY EVALUATION, SERUM Lab Routine Partial symptomatic epilepsy with complex partial seizures, not intractable, without status epilepticus (HCC) Expected: 09/29/2022, Expires: 11/29/2022 [facility] Work Phone: Comment on above: Expected: 09/29/2022 , Expires: 11/29/2022 Start: 08-25-2022 Urine culture Urine Culture [facility] Start: 08-25-2022 Lamotrigine measurement [facility] Start: 07-15-2022 CT Abdomen and Pelvi s WO contrast [facility] Start: 07-15-2022 CT of abdomen and pe lvis without contrast CT abdomen pelvis wo con [facility] Start: 07-11-2022 End: 09-10-2022 CBC panel - Blood by Automated count CBC Lab Routine Partial symptomatic epilepsy with complex partial seizures, not intractable, without status epilepticus (HCC) Expected: 07/11/2022, Expires: 09/10/2022 [facility] Work Phone: Comment on above: Expected: 07/11/2022 , Expires: 09/10/2022 Start: 07-11-2022 End: 09-10-2022 Comprehensive metabolic 2000 panel - Serum or Plasma COMP METABOLIC PANEL Lab Routine Partial symptomatic epilepsy with complex partial seizures, not intractable, without status epilepticus (HCC) Expected: 07/11/2022, Expires: 09/10/2022 [facility] Work Phone: Comment on above: Expected: 07/11/2022 , Expires: 09/10/2022 Start: 07-11-2022 End: 09-10-2022 lamoTRIgine [Mass/volume] in Serum or Plasma LAMOTRIGINE Lab Routine Partial symptomatic epilepsy with complex partial seizures, not intractable, without status epilepticus (HCC) Expected: 07/11/2022, Expires: 09/10/2022 [facility] Work Phone: Comment on above: Expected: 07/11/2022 , Expires: 09/10/2022 Start: 04-14-2022 Influenza vaccination C [facility] Start: 04-06-2022 End: 06-06-2022 lamoTRIgine [Mass/volume] in Serum or Plasma LAMOTRIGINE Lab Routine Partial symptomatic epilepsy with complex partial seizures, not intractable, without status epilepticus (HCC) Expected: 04/06/2022, Expires: 06/06/2022 [facility] Work Phone: Comment on above: Expected: 04/06/2022 , Expires: 06/06/2022 Start: 04-04-2022 End: 04-05-2022 Emergency department patient visit Departed Emergency [facility] Start: 02-10-2022 End: 04-12-2022 lamoTRIgine [Mass/volume] in Serum or Plasma LAMOTRIGINE Lab Routine Partial symptomatic epilepsy with complex partial seizures, not intractable, without status epilepticus (HCC) Expected: 02/10/2022, Expires: 04/12/2022 [facility] Work Phone: Comment on above: Expected: 02/10/2022 , Expires: 04/12/2022 Start: 2021 Urine microalbumin profile DTAP,TDAP,TD (1 - Tdap) [facility] Start: 08-14-2021 DEPRESSION ASSESSMENT DEPRESSION ASS ESSMENT [facility] Start: 12-23-2020 Meningococcal B Vacc ine: Consider Based On Risk (2 of 2 - Risk Bexsero 2-dose series) Meningococcal B Vaccine: Consider Based On Risk (2 of 2 - Risk Bexsero 2-dose series) [facility] Start: 12-23-2020 MENINGOCOCCAL B: Consider based on risk (2 of 2 - Risk Bexsero 2-dose series) MENINGOCOCCAL B: Consider based on risk (2 of 2 - Risk Bexsero 2-dose series) [facility] Start: 2020 CHLAMYDIA SCREENING (18-24) CHLAMYDIA SCREENING (18-24) [facility] Start: 2020 GC (GONORRHEA) SCREE GALINDO (18-24) GC (GONORRHEA) SCREENING (18-24) [facility] Start: 2020 HEPATITIS C SCREENING HEPATITIS C [facility] Start: 2020 Hepatitis C screening Hepatitis C [facility] Start: 2020 HIV SCREENING HIV SCREENING [facility] Start: 2020 HIV screening HIV Screening [facility] Start: 2020 Screening for Chlamy nova trachomatis Chlamydia Screening (18-24) [facility] Start: 2016 PEDS TO ADULT TRANSI TION ANNUAL ASSESSMENT PEDS TO ADULT TRANSITION ANNUAL ASSESSMENT [facility] Start: 2014 PEDS TO ADULT TRANSI TION INITIAL DISCUSSION PEDS TO ADULT TRANSITION INITIAL DISCUSSION [facility] Start: 2013 HPV VACCINE (1 - 2-d ose series) HPV VACCINE (1 - 2-dose series) [facility] Start: 2012 MENINGOCOCCAL B: Consider based on risk (1 of 2 - Risk Bexsero 2-dose series) MENINGOCOCCAL B: Consider based on risk (1 of 2 - Risk Bexsero 2-dose series) [facility] Start: 10-15-2007 COVID-19 VACCINE (#1) COVID-19 VACCI NE (#1) [facility] Start: 05-31-2004 HEPATITIS B (3 of 3 - 3-dose series) HEPATITIS B (3 of 3 - 3-dose series) [facility] Start: 04-16-2003 COVID-19 VACCINE (#1) COVID-19 VACCI NE (#1) [facility] Start: 2002 HEPATITIS B (1 of 3 - 3-dose series) HEPATITIS B (1 of 3 - 3-dose series) [facility] Bacteria identified in Urine by Culture [facility] End: 10-20-2023 ECG COMPLETE ECG COMPLETE ECG Routine Preoperative testing 1 Occurrences starting 10/19/2022 until 10/20/2023 [facility] Work Phone: Comment on above: 1 Occurrences starti ng 10/19/2022 until 10/20/2023 End: 10-22-2023 ECG COMPLETE ECG COMPLETE ECG Routine Pre-op evaluation 1 Occurrences starting 10/21/2022 until 10/22/2023 [facility] Work Phone: Comment on above: 1 Occurrences starti ng 10/21/2022 until 10/22/2023 End: 11-19-2022 EPIL EEG LONG EPIL EEG LONG NEUROLOGY Routine Convulsions, unspecified convulsion type (HCC) 1 Occurrences starting 11/19/2021 until 11/19/2022 [facility] Work Phone: Comment on above: 1 Occurrences starti ng 11/19/2021 until 11/19/2022 End: 09-09-2023 EPIL EEG W PROCEDURE EPIL EEG W PROCEDURE NEUROLOGY Routine Partial symptomatic epilepsy with complex partial seizures, not intractable, without status epilepticus (HCC) 1 Occurrences starting 09/09/2022 until 09/09/2023 [facility] Work Phone: Comment on above: 1 Occurrences starti ng 09/09/2022 until 09/09/2023 End: 01-22-2023 Mri brain brain stem w/o contrast material MRI BRAIN WO IVCON Radiology Routine Partial symptomatic epilepsy with complex partial seizures, not intractable, without status epilepticus (HCC) 1 Occurrences starting 12/22/2021 until 01/22/2023 [facility] Work Phone: Comment on above: 1 Occurrences starti ng 12/22/2021 until 01/22/2023 End: 10-29-2023 Mri brain brain stem w/o contrast material MRI BRAIN WO IVCON Radiology Routine Partial symptomatic epilepsy with complex partial seizures, not intractable, without status epilepticus (HCC) 1 Occurrences starting 09/29/2022 until 10/29/2023 [facility] Work Phone: Comment on above: 1 Occurrences starti ng 09/29/2022 until 10/29/2023 End: 04-08-2024 Mri brain brain stem w/o contrast material MRI BRAIN WO IVCON Radiology Routine Partial symptomatic epilepsy with complex partial seizures, not intractable, without status epilepticus (HCC) S/P brain surgery 1 Occurrences starting 03/10/2023 until 04/08/2024 [facility] Work Phone: Comment on above: 1 Occurrences starti ng 03/10/2023 until 04/08/2024 Patient Education [facility] Work Phone: Patient referral [facility] Work Phone: REFER FOR ADMIT INTERVIEW REFER FOR ADMIT INTERVIEW Procedures Routine Preoperative testing Ordered: 10/19/2022 [facility] Work Phone: Comment on above: Ordered: 10/19/2022 REFER FOR ADMIT INTERVIEW REFER FOR ADMIT INTERVIEW Procedures Routine Preoperative examination Ordered: 01/10/2023 [facility]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 [address] [place] [address] Mr Imaging Referral ID Status Reason Start Date Expiration Date V isits Requested Visits Authorized [id number] Closed Auto-Generate d Referral 08/30/2022 09/29/2023 1 1 Referral ID Status Reason Start Date Expiration Date Visits Requested Visits Authorized [id number] Pending Review Auto-Generat ed Referral 09/29/2022 10/29/2023 1 1 Specialty Diagnoses / Procedures Referred By Contac t Referred To Contact Neurosurgery Diagnoses Partial symptomatic epilepsy with complex partial seizures, not intractable, without status epilepticus (HCC) Procedures CONSULT TO NEUROSURGERY OFFICE/OUTPATIENT [facility] HIGH MDM 60-74 MINUTES Robert Marin MD [address] [place] [address] Referral ID Status Reason Start Date Expiration Date Visits Requested Visits Authorized [id number] Authorized PCP Requested Referral 10/12/2022 10/12/2023 1 1 Referral ID Status Reason Start Date Expiration Date V isits Requested Visits Authorized [id number] Closed Auto-Generate d Referral 09/29/2022 10/29/2023 1 1 Specialty Diagnoses / Procedures Referred By Edmarac t Referred To Contact MR IMAGING Diagnoses Encounter for other preprocedural examination Partial symptomatic epilepsy with complex partial seizures, not intractable, without status epilepticus (HCC) Preoperative testing Procedures MRI BRAIN LOCALIZATION W IVCON UNLISTED MAGNETIC RESONANCE PROCED Evaristo Torres PA-C [address] [id number] Mr Imaging Referral ID Status Reason Start Date Expiration Date Visits Requested Visits Authorized [id number] Pending Review Auto-Generat ed Referral 11/22/2022 11/18/2023 1 1 Specialty Diagnoses / Procedures Referred By Contac t Referred To Contact CT IMAGING Diagnoses Encounter for other preprocedural examination Partial symptomatic epilepsy with complex partial seizures, not intractable, without status epilepticus (HCC) Preoperative testing Procedures CTA HEAD W IVCON CT ANGIOGRAPHY HEAD W/CONTRAST/NONCONTRAST Evaristo Torres PA-C [address] [place] [address] Ct Imaging Referral ID Status Reason Start Date Expiration Date Visits Requested Visits Authorized [id number] Pending Review Auto-Generat ed Referral 11/22/2022 11/18/2023 1 1 Specialty Diagnoses / Procedures Referred By Contac t Referred [facility] Diagnoses Preoperative testing Procedures ECG COMPLETE ECG ROUTINE ECG W/LEAST 12 LDS W/I&R Evaristo Torres PA-C [address] [place] [address] [facility] [address] [place] [address] Referral ID Status Reason Start Date Expiration Date Visits Requested Visits Authorized [id number] Pending Review Auto-Generat ed Referral 10/19/2022 10/19/2023 1 1 Specialty Diagnoses / Procedures Referred By Contac t Referred To Contact Cardiology Diagnoses Preoperative testing Procedures CONSULT TO CARDIOLOGY OFFICE/OUTPATIENT [facility] MDM 60-74 MINUTES Evaristo Torres PA-C [address] [phone] Referral ID Status Reason Start Date Expiration Date Visits Requested Visits Authorized [id number] Authorized PCP Requested Referral 10/19/2022 10/19/2023 1 1 Referral ID Status Reason Start Date Expiration Date V isits Requested Visits Authorized [id number] Closed Auto-Generate d Referral 11/22/2022 11/18/2023 1 1 Referral ID Status Reason Start Date Expiration Date V isits Requested Visits Authorized [id number] Closed Auto-Generate d Referral 11/22/2022 11/18/2023 1 1 Specialty Diagnoses / Procedures Referred By Contac t Referred To Contact MR IMAG[facility] Diagnoses Encounter for other preprocedural examination Partial symptomatic epilepsy with complex partial seizures, not intractable, without status epilepticus (HCC) Preoperative examination Procedures MRI BRAIN LOCALIZATION WO IVCON UNLISTED MAGNETIC RESONANCE PROCED Evaristo Torres PA-C [address] [phone] Mr Imaging Referral ID Status Reason Start Date Expiration Date Visits Requested Visits Authorized [id number] Pending Review Auto-Generat ed Referral 01/10/2023 02/09/2024 1 1 Specialty Diagnoses / Procedures Referred By Contac t Referred To Contact Diagnoses Partial symptomatic epilepsy with complex partial seizures, not intractable, without status epilepticus (HCC) Preoperative examination Procedures REFER TO PACC - PRE ANESTHESIA CONSULTATION CLINIC OFFICE/OUTPATIENT [facility] 60-74 MINUTES Evaristo Torres PA-C [address] [phone] Referral ID Status Reason Start Date Expiration Date Visits Requested Visits Authorized [id number] Authorized PCP Requested Referral 01/10/2023 01/10/2024 1 1 Specialty Diagnoses / Procedures [facility] To [facility] Diagnoses Encounter for other preprocedural examination Partial symptomatic epilepsy with complex partial seizures, not intractable, without status epilepticus (HCC) Preoperative examination Procedures MRI BRAIN LOCALIZATION WO IVCON UNLISTED MAGNETIC RESONANCE PROCED MRI BRAIN BRAIN STEM W/O CONTRAST MATERIAL Evaristo Torres PA-C [address] [place] [address] Mr Imaging Referral ID Status Reason Start Date Expiration Date V isits Requested Visits Authorized [id number] Closed Auto-Generat ed Referral Patient Cleared - Admin/Chairm an/Director advise to proceed 01/10/2023 02/09/2024 1 1 Specialty Diagnoses / Procedures [facility] Referred To Contact [facility] Diagnoses Partial symptomatic epilepsy with complex partial seizures, not intractable, without status epilepticus (HCC) S/P brain surgery Procedures MRI BRAIN WO IVCON MRI BRAIN BRAIN STEM W/O CONTRAST MATERIAL Claudio Michaels, KNITTED GARMENT FINISHER.WORLD TRAVEL COUNSELOR [address] [facility] [place] [address] Mr Imaging Referral ID Status Reason Start Date Expiration Date Visits Requested Visits Authorized [id number] Pending Review Auto-Generat ed Referral 03/10/2023 04/08/2024 1 1 Specialty Diagnoses / Procedures [facility] To Contact MR IMAGING Diagnoses Partial symptomatic epilepsy with complex partial seizures, not intractable, without status epilepticus (HCC) S/P brain surgery Procedures MRI BRAIN WO IVCON MRI BRAIN BRAIN STEM W/O CONTRAST MATERIAL Claudio Michaels, KNITTED GARMENT FINISHER.WORLD TRAVEL COUNSELOR [address] [place] [address] [place] [address] Referral ID Status Reason Start Date Expiration Date V isits Requested Visits Authorized [id number] Closed Auto-Generate d Referral 03/10/2023 04/08/2024 1 1 Specialty Diagnoses / Procedures [facility] Referred To Contact Diagnoses Partial symptomatic epilepsy with complex partial seizures, not intractable, 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) Procedures CONSULT TO PSYCHIATRY OFFICE/OUTPATIENT [facility] 60-74 MINUTES Robert Marin MD [address] [place] [address] Referral ID Status Reason Start Date Expiration Date Visits Requested Visits Authorized [id number] Pending Review PCP Requested Referral 3 07/23/2024 1 1 Specialty Diagnoses / Procedures Referred By [facility] t Referred To Contact Diagnoses Partial symptomatic epilepsy with complex partial seizures, not intractable, without status epilepticus (HCC) Procedures CONSULT TO MEDICAL GENETICS - GENERAL OFFICE/OUTPATIENT [facility] 60 MINUTES MEDICAL GENETICS COUNSELING EACH 30 MINUTES Robert Marin MD [address] [place] [address] [facility] [address] [place] [address] Referral ID Status Reason Start Date Expiration Date Visits Requested Visits Authorized [id number] Authorized PCP Requested Referral Auto-Generate d Referral 4 06/10/2025 1 1 Chief Complaint and Reason for Visit Chief Complaint Headache, Blood in U rine Syncopal Episode heart racing Tachycardia Allergic reaction Chief Complaint stomach burning Chief Complaint stomach burning Seizures Chief Complaint stomach burning Seizures vomiting, weakness Chief Complaint left breast pain-swe lling Chief Complaint f32a z13.220 r73.01 z000 z13.29 z13.21 f41.9 Health Concerns Infection Onset Date Last Indicated Resolved Time COVID-19 Rule-Out 10/03/2022 10/03/2022 10/03/2022 6:45 AM EST Infection Onset Date Last Indicated Resolved Time COVID-19 Rule-Out 08/26/2022 08/26/2022 08/26/2022 7:26 PM EST COVID-19 Rule-Out 10/03/2022 10/03/2022 10/03/2022 6:45 AM EST Additional Source Comments INFORMATION SOURCE (unrecogn ized section and content) DATE CREATED AUTHOR 07/22/2021 [facility] dical Specialist DATE CREATED AUTHOR AUTHOR'S ORGANIZ ATION 01/07/2022 [facility] DATE CREATED AUTHOR AUTHOR'S ORGANIZ ATION 12/12/2023 [facility] DATE CREATED AUTHOR AUTHOR'S ORGANIZ ATION 03/30/2024 [facility] dical Specialists EPIC DATE CREATED AUTHOR AUTHOR'S ORGANTIAGO ATION 04/07/2024 [facility] DATE CREATED AUTHOR AUTHOR'S ORGANIZ ATION 07/28/2024 [facility] Source Comments (unrecognize d section and content) In the event this informatio n is protected by the Federal Confidentiality of Alcohol and Drug Abuse Patient Records regulations: The Federal rules restrict any use of the information to criminally investigate or prosecute any alcohol or drug abuse patient.[facility] the event this information is protected by the Federal Confidentiality of Alcohol and Drug Abuse Patient Records regulations: The Federal rules restrict any use of the information to criminally investigate or prosecute any alcohol or drug abuse patient.[facility] [place] [facility] HospitalIn the event this information is protected by the Federal Confidentiality of Alcohol and Drug Abuse Patient Records regulations: The Federal rules restrict any use of the information to criminally investigate or prosecute any alcohol or drug abuse patient.[facility]In the event this information is protected by the Federal Confidentiality of Alcohol and Drug Abuse Patient Records regulations: The Federal rules restrict any use of the information to criminally investigate or prosecute any alcohol or drug abuse patient.[facility] [place] [facility] HospitalIn the event this information is protected by the Federal Confidentiality of Alcohol and Drug Abuse Patient Records regulations: The Federal rules restrict any use of the information to criminally investigate or prosecute any alcohol or drug abuse patient.[facility] [place] [facility] HospitalIn the event this information is protected by the Federal Confidentiality of Alcohol and Drug Abuse Patient Records regulations: The Federal rules restrict any use of the information to criminally investigate or prosecute any alcohol or drug abuse patient.[facility] [place] [facility] HospitalIn the event this information is protected by the Federal Confidentiality of Alcohol and Drug Abuse Patient Records regulations: The Federal rules restrict any use of the information to criminally investigate or prosecute any alcohol or drug abuse patient.[facility] [place] [facility] HospitalIn the event this information is protected by the Federal Confidentiality of Alcohol and Drug Abuse Patient Records regulations: The Federal rules restrict any use of the information to criminally investigate or prosecute any alcohol or drug abuse patient.[facility] [place] [facility] HospitalIn the event this information is protected by the Federal Confidentiality of Alcohol and Drug Abuse Patient Records regulations: The Federal rules restrict any use of the information to criminally investigate or prosecute any alcohol or drug abuse patient.[facility] [place] [facility] HospitalIn the event this information is protected by the Federal Confidentiality of Alcohol and Drug Abuse Patient Records regulations: The Federal rules restrict any use of the information to criminally investigate or prosecute any alcohol or drug abuse patient.[facility] [place] [facility] HospitalIn the event this information is protected by the Federal Confidentiality of Alcohol and Drug Abuse Patient Records regulations: The Federal rules restrict any use of the information to criminally investigate or prosecute any alcohol or drug abuse patient.[facility] [place] [facility] HospitalIn the event this information is protected by the Federal Confidentiality of Alcohol and Drug Abuse Patient Records regulations: The Federal rules restrict any use of the information to criminally investigate or prosecute any alcohol or drug abuse patient.[facility] [place] [facility] HospitalIn the event this information is protected by the Federal Confidentiality of Alcohol and Drug Abuse Patient Records regulations: The Federal rules restrict any use of the information to criminally investigate or prosecute any alcohol or drug abuse patient.[facility] [place] [facility] HospitalIn the event this information is protected by the Federal Confidentiality of Alcohol and Drug Abuse Patient Records regulations: The Federal rules restrict any use of the information to criminally investigate or prosecute any alcohol or drug abuse patient.[facility] [place] [facility] HospitalIn the event this information is protected by the Federal Confidentiality of Alcohol and Drug Abuse Patient Records regulations: The Federal rules restrict any use of the information to criminally investigate or prosecute any alcohol or drug abuse patient.[facility] [place] [facility] HospitalIn the event this information is protected by the Federal Confidentiality of Alcohol and Drug Abuse Patient Records regulations: The Federal rules restrict any use of the information to criminally investigate or prosecute any alcohol or drug abuse patient.[facility] [place] [facility] HospitalIn the event this information is protected by the Federal Confidentiality of Alcohol and Drug Abuse Patient Records regulations: The Federal rules restrict any use of the information to criminally investigate or prosecute any alcohol or drug abuse patient.[facility] [place] [facility] HospitalIn the event this information is protected by the Federal Confidentiality of Alcohol and Drug Abuse Patient Records regulations: The Federal rules restrict any use of the information to criminally investigate or prosecute any alcohol or drug abuse patient.[facility] [place] [facility] HospitalIn the event this information is protected by the Federal Confidentiality of Alcohol and Drug Abuse Patient Records regulations: The Federal rules restrict any use of the information to criminally investigate or prosecute any alcohol or drug abuse patient.[facility] [place] [facility] HospitalIn the event this information is protected by the Federal Confidentiality of Alcohol and Drug Abuse Patient Records regulations: The Federal rules restrict any use of the information to criminally investigate or prosecute any alcohol or drug abuse patient.[facility] HospitalIn the event this information is protected by the Federal Confidentiality of Alcohol and Drug Abuse Patient Records regulations: The Federal rules restrict any use of the information to criminally investigate or prosecute any alcohol or drug abuse patient.[facility] [place] [facility] HospitalIn the event this information is protected by the Federal Confidentiality of Alcohol and Drug Abuse Patient Records regulations: The Federal rules restrict any use of the information to criminally investigate or prosecute any alcohol or drug abuse patient.[facility] [place] [facility] HospitalIn the event this information is protected by the Federal Confidentiality of Alcohol and Drug Abuse Patient Records regulations: The Federal rules restrict any use of the information to criminally investigate or prosecute any alcohol or drug abuse patient.[facility] [place] [facility] HospitalIn the event this information is protected by the Federal Confidentiality of Alcohol and Drug Abuse Patient Records regulations: The Federal rules restrict any use of the information to criminally investigate or prosecute any alcohol or drug abuse patient.[facility] [place] [facility] HospitalIn the event this information is protected by the Federal Confidentiality of Alcohol and Drug Abuse Patient Records regulations: The Federal rules restrict any use of the information to criminally investigate or prosecute any alcohol or drug abuse patient.[facility] [place] [facility] HospitalIn the event this information is protected by the Federal Confidentiality of Alcohol and Drug Abuse Patient Records regulations: The Federal rules restrict any use of the information to criminally investigate or prosecute any alcohol or drug abuse patient.[facility] [place] [facility] HospitalIn the event this information is protected by the Federal Confidentiality of Alcohol and Drug Abuse Patient Records regulations: The Federal rules restrict any use of the information to criminally investigate or prosecute any alcohol or drug abuse patient.[facility] HospitalIn the event this information is protected by the Federal Confidentiality of Alcohol and Drug Abuse Patient Records regulations: The Federal rules restrict any use of the information to criminally investigate or prosecute any alcohol or drug abuse patient.[facility] HospitalIn the event this information is protected by the Federal Confidentiality of Alcohol and Drug Abuse Patient Records regulations: The Federal rules restrict any use of the information to criminally investigate or prosecute any alcohol or drug abuse patient.[facility] HospitalIn the event this information is protected by the Federal Confidentiality of Alcohol and Drug Abuse Patient Records regulations: The Federal rules restrict any use of the information to criminally investigate or prosecute any alcohol or drug abuse patient.[facility] [place] [facility] HospitalIn the event this information is protected by the Federal Confidentiality of Alcohol and Drug Abuse Patient Records regulations: The Federal rules restrict any use of the information to criminally investigate or prosecute any alcohol or drug abuse patient.[facility] the event this information is protected by the Federal Confidentiality of Alcohol and Drug Abuse Patient Records regulations: The Federal rules restrict any use of the information to criminally investigate or prosecute any alcohol or drug abuse patient.[facility] [place] [facility] HospitalIn the event this information is protected by the Federal Confidentiality of Alcohol and Drug Abuse Patient Records regulations: The Federal rules restrict any use of the information to criminally investigate or prosecute any alcohol or drug abuse patient.[facility] [place] [facility] HospitalIn the event this information is protected by the Federal Confidentiality of Alcohol and Drug Abuse Patient Records regulations: The Federal rules restrict any use of the information to criminally investigate or prosecute any alcohol or drug abuse patient.[facility] HospitalIn the event this information is protected by the Federal Confidentiality of Alcohol and Drug Abuse Patient Records regulations: The Federal rules restrict any use of the information to criminally investigate or prosecute any alcohol or drug abuse patient.[facility] [place] [facility] HospitalIn the event this information is protected by the Federal Confidentiality of Alcohol and Drug Abuse Patient Records regulations: The Federal rules restrict any use of the information to criminally investigate or prosecute any alcohol or drug abuse patient.[facility] [place] [facility] HospitalIn the event this information is protected by the Federal Confidentiality of Alcohol and Drug Abuse Patient Records regulations: The Federal rules restrict any use of the information to criminally investigate or prosecute any alcohol or drug abuse patient.[facility] HospitalIn the event this information is protected by the Federal Confidentiality of Alcohol and Drug Abuse Patient Records regulations: The Federal rules restrict any use of the information to criminally investigate or prosecute any alcohol or drug abuse patient.[facility] [place] [facility] HospitalIn the event this information is protected by the Federal Confidentiality of Alcohol and Drug Abuse Patient Records regulations: The Federal rules restrict any use of the information to criminally investigate or prosecute any alcohol or drug abuse patient.[facility] [place] [facility] HospitalIn the event this information is protected by the Federal Confidentiality of Alcohol and Drug Abuse Patient Records regulations: The Federal rules restrict any use of the information to criminally investigate or prosecute any alcohol or drug abuse patient.[facility] HospitalIn the event this information is protected by the Federal Confidentiality of Alcohol and Drug Abuse Patient Records regulations: The Federal rules restrict any use of the information to criminally investigate or prosecute any alcohol or drug abuse patient.[facility] HospitalIn the event this information is protected by the Federal Confidentiality of Alcohol and Drug Abuse Patient Records regulations: The Federal rules restrict any use of the information to criminally investigate or prosecute any alcohol or drug abuse patient.[facility] HospitalIn the event this information is protected by the Federal Confidentiality of Alcohol and Drug Abuse Patient Records regulations: The Federal rules restrict any use of the information to criminally investigate or prosecute any alcohol or drug abuse patient.[facility] HospitalIn the event this information is protected by the Federal Confidentiality of Alcohol and Drug Abuse Patient Records regulations: The Federal rules restrict any use of the information to criminally investigate or prosecute any alcohol or drug abuse patient.[facility] HospitalIn the event this information is protected by the Federal Confidentiality of Alcohol and Drug Abuse Patient Records regulations: The Federal rules restrict any use of the information to criminally investigate or prosecute any alcohol or drug abuse patient.[facility] HospitalIn the event this information is protected by the Federal Confidentiality of Alcohol and Drug Abuse Patient Records regulations: The Federal rules restrict any use of the information to criminally investigate or prosecute any alcohol or drug abuse patient.[facility] HospitalIn the event this information is protected by the Federal Confidentiality of Alcohol and Drug Abuse Patient Records regulations: The Federal rules restrict any use of the information to criminally investigate or prosecute any alcohol or drug abuse patient.[facility] HospitalIn the event this information is protected by the Federal Confidentiality of Alcohol and Drug Abuse Patient Records regulations: The Federal rules restrict any use of the information to criminally investigate or prosecute any alcohol or drug abuse patient.[facility] HospitalIn the event this information is protected by the Federal Confidentiality of Alcohol and Drug Abuse Patient Records regulations: The Federal rules restrict any use of the information to criminally investigate or prosecute any alcohol or drug abuse patient.[facility] [place] [facility] HospitalIn the event this information is protected by the Federal Confidentiality of Alcohol and Drug Abuse Patient Records regulations: The Federal rules restrict any use of the information to criminally investigate or prosecute any alcohol or drug abuse patient.[facility] HospitalIn the event this information is protected by the Federal Confidentiality of Alcohol and Drug Abuse Patient Records regulations: The Federal rules restrict any use of the information to criminally investigate or prosecute any alcohol or drug abuse patient.[facility] HospitalIn the event this information is protected by the Federal Confidentiality of Alcohol and Drug Abuse Patient Records regulations: The Federal rules restrict any use of the information to criminally investigate or prosecute any alcohol or drug abuse patient.[facility] HospitalIn the event this information is protected by the Federal Confidentiality of Alcohol and Drug Abuse Patient Records regulations: The Federal rules restrict any use of the information to criminally investigate or prosecute any alcohol or drug abuse patient.[facility] [place] [facility] HospitalIn the event this information is protected by the Federal Confidentiality of Alcohol and Drug Abuse Patient Records regulations: The Federal rules restrict any use of the information to criminally investigate or prosecute any alcohol or drug abuse patient.[facility] HospitalIn the event this information is protected by the Federal Confidentiality of Alcohol and Drug Abuse Patient Records regulations: The Federal rules restrict any use of the information to criminally investigate or prosecute any alcohol or drug abuse patient.[facility] HospitalIn the event this information is protected by the Federal Confidentiality of Alcohol and Drug Abuse Patient Records regulations: The Federal rules restrict any use of the information to criminally investigate or prosecute any alcohol or drug abuse patient.[facility] HospitalIn the event this information is protected by the Federal Confidentiality of Alcohol and Drug Abuse Patient Records regulations: The Federal rules restrict any use of the information to criminally investigate or prosecute any alcohol or drug abuse patient.[facility] HospitalIn the event this information is protected by the Federal Confidentiality of Alcohol and Drug Abuse Patient Records regulations: The Federal rules restrict any use of the information to criminally investigate or prosecute any alcohol or drug abuse patient.[facility] HospitalIn the event this information is protected by the Federal Confidentiality of Alcohol and Drug Abuse Patient Records regulations: The Federal rules restrict any use of the information to criminally investigate or prosecute any alcohol or drug abuse patient.[facility] HospitalIn the event this information is protected by the Federal Confidentiality of Alcohol and Drug Abuse Patient Records regulations: The Federal rules restrict any use of the information to criminally investigate or prosecute any alcohol or drug abuse patient.[facility] HospitalIn the event this information is protected by the Federal Confidentiality of Alcohol and Drug Abuse Patient Records regulations: The Federal rules restrict any use of the information to criminally investigate or prosecute any alcohol or drug abuse patient.[facility] HospitalIn the event this information is protected by the Federal Confidentiality of Alcohol and Drug Abuse Patient Records regulations: The Federal rules restrict any use of the information to criminally investigate or prosecute any alcohol or drug abuse patient.[facility] HospitalIn the event this information is protected by the Federal Confidentiality of Alcohol and Drug Abuse Patient Records regulations: The Federal rules restrict any use of the information to criminally investigate or prosecute any alcohol or drug abuse patient.[facility] HospitalIn the event this information is protected by the Federal Confidentiality of Alcohol and Drug Abuse Patient Records regulations: The Federal rules restrict any use of the information to criminally investigate or prosecute any alcohol or drug abuse patient.[facility] HospitalIn the event this information is protected by the Federal Confidentiality of Alcohol and Drug Abuse Patient Records regulations: The Federal rules restrict any use of the information to criminally investigate or prosecute any alcohol or drug abuse patient.[facility] HospitalIn the event this information is protected by the Federal Confidentiality of Alcohol and Drug Abuse Patient Records regulations: The Federal rules restrict any use of the information to criminally investigate or prosecute any alcohol or drug abuse patient.[facility] HospitalIn the event this information is protected by the Federal Confidentiality of Alcohol and Drug Abuse Patient Records regulations: The Federal rules restrict any use of the information to criminally investigate or prosecute any alcohol or drug abuse patient.[facility] HospitalIn the event this information is protected by the Federal Confidentiality of Alcohol and Drug Abuse Patient Records regulations: The Federal rules restrict any use of the information to criminally investigate or prosecute any alcohol or drug abuse patient.[facility] HospitalIn the event this information is protected by the Federal Confidentiality of Alcohol and Drug Abuse Patient Records regulations: The Federal rules restrict any use of the information to criminally investigate or prosecute any alcohol or drug abuse patient.[facility] [place] [facility] HospitalIn the event this information is protected by the Federal Confidentiality of Alcohol and Drug Abuse Patient Records regulations: The Federal rules restrict any use of the information to criminally investigate or prosecute any alcohol or drug abuse patient.[facility] [place] [facility] HospitalIn the event this information is protected by the Federal Confidentiality of Alcohol and Drug Abuse Patient Records regulations: The Federal rules restrict any use of the information to criminally investigate or prosecute any alcohol or drug abuse patient.[facility] Care Teams (unrecognized sec tion and content) Team Status: Active Member Role Status Dates Remi Andrew MD Primary Care Provider Active Team Status: Inactive Member Role Status Dates Remi Andrew MD Primary Care Provider Active Feng Barlow PA-C Emergency Provider Active Supervisor Pyrotechnic Loading Relationship Specialty Start Date End Date Remi Andrew MD [address] [place] [id number] PCP - General Family Practice 10/19/16 Supervisor Pyrotechnic Loading Relationship Specialty Start Date End Date Remi Andrew MD [address] [place] [phone] PCP - General Family Practice 10/19/16 Supervisor Pyrotechnic Loading Relationship Specialty Start Date End Date Remi Andrew MD [address] [place] [phone] PCP - General Family Practice 10/19/16 Supervisor Pyrotechnic Loading Relationship Specialty Start Date End Date Remi Andrew MD [address] [place] [address] PCP - General Family Practice 10/19/16 Supervisor Pyrotechnic Loading Relationship Specialty Start Date End Date Remi Andrew MD [address] [place] [address] PCP - General Family Practice 10/19/16 Supervisor Pyrotechnic Loading Relationship Specialty Start Date End Date Remi Andrew MD [address] [place] [address] PCP - General Family Practice 10/19/16 Supervisor Pyrotechnic Loading Relationship Specialty Start Date End Date Remi Andrew MD [address] [place] [phone] PCP - General Family Practice 10/19/16 Supervisor Pyrotechnic Loading Relationship Specialty Start Date End Date Remi Andrew MD [address] [place] [phone] PCP - General Family Practice 10/19/16 Supervisor Pyrotechnic Loading Relationship Specialty Start Date End Date Remi Andrew MD [address] [place] [phone] PCP - General Family Practice 10/19/16 Supervisor Pyrotechnic Loading Relationship Specialty Start Date End Date Remi Andrew MD [address] [place] [address] PCP - General Family Practice 10/19/16 Team Status: Inactive Member Role Status Dates Remi Andrew MD Primary Care Provider Active Kristine Welsh , [facility] Emergency Provider Active Gonzales Mayes DO RES Active Team Status: Inactive Member Role Status Dates Bill Keith DO Emergency Provider Active Remi Andrew MD Primary Care Provider Active Team Status: Inactive Member Role Status Dates Remi Andrew MD Primary Care Provider Active Feng Barlow PA-C Attending Provider Active Team Status: Inactive Member Role Status Dates Remi Andrew MD Primary Care Provider Active Brando Guy DO Emergency Provider Active Supervisor Pyrotechnic Loading Relationship Specialty Start Date End Date Remi Andrew MD [address] [place] [phone] PCP - General Family Practice 10/19/16 Supervisor Pyrotechnic Loading Relationship Specialty Start Date End Date Remi Andrew MD [address] [place] [address] PCP - General Family Medicine 10/19/16 Supervisor Pyrotechnic Loading Relationship Specialty Start Date End Date Remi Andrew MD [address] [place] [address] PCP - General Family Medicine 10/19/16 Supervisor Pyrotechnic Loading Relationship Specialty Start Date End Date Remi Andrew MD [address] [place] [address] PCP - General Family Medicine 10/19/16 Team Status: Inactive Member Role Status Dates Remi Andrew MD Primary Care Provider Active Sedrick Pina Jr, MD Emergency Provider Active Team Status: Inactive Member Role Status Dates Remi Andrew MD Primary Care Provider Active Madiha Funk PA-C Emergency Provider Active Supervisor Pyrotechnic Loading Relationship Specialty Start Date End Date Remi Andrew MD [address] [place] [phone] PCP - General Family Medicine 10/19/16 Supervisor Pyrotechnic Loading Relationship Specialty Start Date End Date Remi Andrew MD [address] [place] [phone] PCP - General Family Medicine 10/19/16 Supervisor Pyrotechnic Loading Relationship Specialty Start Date End Date Remi Andrew MD [address] [place] [phone] PCP - General Family Medicine 10/19/16 Supervisor Pyrotechnic Loading Relationship Specialty Start Date End Date Remi Andrew MD [address] [place] [phone] PCP - General Family Medicine 10/19/16 Supervisor Pyrotechnic Loading Relationship Specialty Start Date End Date Remi Andrew MD [address] [place] [phone] PCP - General Family Medicine 10/19/16 Supervisor Pyrotechnic Loading Relationship Specialty Start Date End Date Remi Andrew MD [address] [place] [phone] PCP - General Family Medicine 10/19/16 Supervisor Pyrotechnic Loading Relationship Specialty Start Date End Date Remi Andrew MD [address] [place] [phone] PCP - General Family Medicine 10/19/16 Supervisor Pyrotechnic Loading Relationship Specialty Start Date End Date Remi Andrew MD [address] [place] [phone] PCP - General Family Medicine 10/19/16 Team Status: Inactive Member Role Status Dates Remi Andrew MD Primary Care Provider Active Shashi Ornelas DO Emergency Provider Active Supervisor Pyrotechnic Loading Relationship Specialty Start Date End Date Remi Andrew MD [address] [place] [phone] PCP - General Family Medicine 10/19/16 Supervisor Pyrotechnic Loading Relationship Specialty Start Date End Date Remi Andrew MD [address] [place] [phone] PCP - General Family Medicine 10/19/16 Supervisor Pyrotechnic Loading Relationship Specialty Start Date End Date Remi Andrew MD [address] [place] [address] PCP - General Family Medicine 10/19/16 Supervisor Pyrotechnic Loading Relationship Specialty Start Date End Date Remi Andrew MD [address] [place] [address] PCP - General Family Medicine 10/19/16 Supervisor Pyrotechnic Loading Relationship Specialty Start Date End Date Remi Andrew MD [address] [place] [address] PCP - General Family Medicine 10/19/16 Supervisor Pyrotechnic Loading Relationship Specialty Start Date End Date Remi Andrew MD [address] [place] [address] PCP - General Family Medicine 10/19/16 Supervisor Pyrotechnic Loading Relationship Specialty Start Date End Date Remi Andrew MD [address] [place] [address] PCP - General Family Medicine 10/19/16 Supervisor Pyrotechnic Loading Relationship Specialty Start Date End Date Remi Andrew MD [address] [place] [phone] PCP - General Family Medicine 10/19/16 Supervisor Pyrotechnic Loading Relationship Specialty Start Date End Date Remi Andrew MD [address] [place] [phone] PCP - General Family Medicine 10/19/16 Supervisor Pyrotechnic Loading Relationship Specialty Start Date End Date Remi Andrew MD [address] [place] [address] PCP - General Family Medicine 10/19/16 Supervisor Pyrotechnic Loading Relationship Specialty Start Date End Date Remi Andrew MD [address] [place] [address] PCP - General Family Medicine 10/19/16 Supervisor Pyrotechnic Loading Relationship Specialty Start Date End Date Remi Andrew MD [address] [place] [phone] PCP - General Family Medicine 10/19/16 Supervisor Pyrotechnic Loading Relationship Specialty Start Date End Date Remi Andrew MD [address] [place] [address] PCP - General Family Medicine 10/19/16 Supervisor Pyrotechnic Loading Relationship Specialty Start Date End Date Remi Andrew MD [address] [place] [phone] PCP - General Family Medicine 10/19/16 Supervisor Pyrotechnic Loading Relationship Specialty Start Date End Date Remi Andrew MD [address] [place] [address] PCP - General Family Medicine 10/19/16 Supervisor Pyrotechnic Loading Relationship Specialty Start Date End Date Remi Andrew MD [address] [place] [address] PCP - General Family Medicine 10/19/16 Supervisor Pyrotechnic Loading Relationship Specialty Start Date End Date Remi Andrew MD [address] [place] [phone] PCP - General Family Medicine 10/19/16 Supervisor Pyrotechnic Loading Relationship Specialty Start Date End Date Remi Andrew MD [address] [place] [phone] PCP - General Family Medicine 10/19/16 Supervisor Pyrotechnic Loading Relationship Specialty Start Date End Date Remi Andrew MD [address] [place] [address] PCP - General Family Medicine 10/19/16 Supervisor Pyrotechnic Loading Relationship Specialty Start Date End Date Remi Andrew MD [address] [place] [phone] PCP - General Family Medicine 10/19/16 Supervisor Pyrotechnic Loading Relationship Specialty Start Date End Date Remi Andrew MD [address] [place] [phone] PCP - General Family Medicine 10/19/16 Supervisor Pyrotechnic Loading Relationship Specialty Start Date End Date Remi Andrew MD [address] [place] [phone] PCP - General Family Medicine 10/19/16 Supervisor Pyrotechnic Loading Relationship Specialty Start Date End Date Remi Andrew MD [address] [place] [phone] PCP - General Family Medicine 10/19/16 Supervisor Pyrotechnic Loading Relationship Specialty Start Date End Date Remi Andrew MD [address] [place] [phone] PCP - General Family Medicine 10/19/16 Supervisor Pyrotechnic Loading Relationship Specialty Start Date End Date Remi Andrew MD [address] [place] [address] PCP - General Family Medicine 10/19/16 Supervisor Pyrotechnic Loading Relationship Specialty Start Date End Date Remi Andrew MD [address] [place] [phone] PCP - General Family Medicine 10/19/16 Supervisor Pyrotechnic Loading Relationship Specialty Start Date End Date Remi Andrew MD [address] [place] [address] PCP - General Family Medicine 10/19/16 Supervisor Pyrotechnic Loading Relationship Specialty Start Date End Date Jessa Robles C[employer]ER [address] [facility] [address] [place] [address] PCP - Medical [place] [employer] 01/12/23 Remi Andrew MD [address] [place] [address] PCP - General Family Medicine 12/20/22 Supervisor Pyrotechnic Loading Relationship Specialty Start Date End Date Jessa Robles [employer]ER [address] [facility] [address] [place] [address] PCP - Medical [place] [employer] 01/12/23 Remi Andrew MD [address] [place] [address] PCP - General Family Medicine 12/20/22 Supervisor Pyrotechnic Loading Relationship Specialty Start Date End Date Jessa Robles NP [address] [place] [address] [place] [phone] PCP - Medical [place] [employer] 01/12/23 Remi Andrew MD [address] [place] [address] PCP - General Family Medicine 12/20/22 Supervisor Pyrotechnic Loading Relationship Specialty Start Date End Date Remi Andrew MD [address] [place] [address] PCP - General Family Medicine 10/19/16 Supervisor Pyrotechnic Loading Relationship Specialty Start Date End Date Remi Andrew MD [address] [place] [address] PCP - General Family Medicine 10/19/16 Team Status: Inactive Member Role Status Dates Remi Andrew MD Primary Care Provide r, Attending Provider Active Start: March 28, 2024 End: March 28, 2024 Supervisor Pyrotechnic Loading Relationship Specialty Start Date End Date Remi Andrew MD [address] [place] [address] PCP - General Family Medicine 10/19/16 Supervisor Pyrotechnic Loading Relationship Specialty Start Date End Date Remi Andrew MD [address] [place] [address] PCP - General Family Medicine 10/19/16 Supervisor Pyrotechnic Loading Relationship Specialty Start Date End Date Remi Andrew MD [address] [place] [address] PCP - General Family Medicine 10/19/16 Supervisor Pyrotechnic Loading Relationship Specialty Start Date End Date Remi Andrew MD [address] [place] [address] PCP - General Family Medicine 12/20/22 Sergei Harrison DO [address] [facility] [address] [place] [address] PCP - Medical [place] [employer] 04/01/20 08/13/99 Essence Patel NP [address] [place] [address] Nurse Practitioner Family Medicine 01/04/24 Christie Aldana NP [address] [place] [address] Nurse Practitioner Family Medicine 01/04/24 Supervisor Pyrotechnic Loading Relationship Specialty Start Date End Date Remi Andrew MD [address] [place] [address] PCP - General Family Medicine 10/19/16 Supervisor Pyrotechnic Loading Relationship Specialty Start Date End Date Remi Andrew MD [address] [place] [address] PCP - General Family Medicine 12/20/22 Sergei Harrison DO [address] [facility] [address] [place] [address] PCP - Medical [place] [employer] 04/01/20 08/13/99 Essence Patel NP [address] [place] [address] Nurse Practitioner Family Medicine 01/04/24 Christie Aldana, [employer] [address] [place] [address] Nurse Practitioner Family Medicine 01/04/24 Supervisor Pyrotechnic Loading Relationship Specialty Start Date End Date Remi Andrew MD [address] [place] [address] PCP - General Family Medicine 10/19/16 Supervisor Pyrotechnic Loading Relationship Specialty Start Date End Date Remi Andrew MD [address] [place] [address] PCP - General Family Medicine 10/19/16 Reason for Visit (unrecogniz ed section and content) Reason Comments New Patient Reason Comments medication concern vimpat issues Specialty Diagnoses / Procedures Referred By Contac t Referred To Contact MR IMAGING Diagnoses Partial symptomatic epilepsy with complex partial seizures, not intractable, without status epilepticus (HCC) Procedures MRI BRAIN WO IVCON MRI BRAIN BRAIN STEM W/O CONTRAST MATERIAL Robert Marin MD [address] [place] [address] Mr Imaging Referral ID Status Reason Start Date Expiration Date V isits Requested Visits Authorized [id number] Closed Auto-Generate d Referral 12/22/2021 02/05/2022 1 [...] (zio) Reason Comments Follow Up Reason Comments [facility] Reason Comments Informed Consent IRB 12-1000 Reason Comments Nm Pet Request Reason Comments [...] FUNCTL BRAIN MAP PHYS/QHP Leena Greenberg PA-C [address] [place] [address] Mr Imaging Referral ID Status Reason Start Date Expiration Date V isits Requested Visits Authorized [id number] Closed Auto-Generate d Referral 08/30/2022 09/29/2023 1 1 Reason Comments Epilepsy Management Conference Reason Comments Follow Up Established Patient Reason Comments New Patient Specialty Diagnoses / Procedures Referred By Contac t Referred To Contact Neurosurgery Diagnoses Partial symptomatic epilepsy with complex partial seizures, not intractable, without status epilepticus (HCC) Procedures CONSULT TO NEUROSURGERY OFFICE/OUTPATIENT NEW HIGH MDM 60-74 MINUTES Robert Marin MD [address] [place] [address] Referral ID Status Reason Start Date Expiration Date V isits Requested Visits Authorized [id number] Closed PCP Requested Referral 10/12/2022 10/12/2023 1 1 Reason Comments Radiology MRI Referral ID Status Reason Start Date Expiration Date V isits Requested Visits Authorized [id number] Closed Auto-Generate d Referral 09/29/2022 10/29/2023 1 1 Reason Comments Schedule Surgery Right SEEG Reason Comments Pre-Op Visit Specialty Diagnoses / Procedures [facility] To Contact ANESTHESIOLOGY Diagnoses Pre op Clearance Procedures COMPLETE PACC Jess David MD [address] [place] [address] 6, P[address] [place] [address] Referral ID Status Reason Start Date Expiration Date V isits Requested Visits Authorized [id number] Pending Review 11/22/2022 02/20/2023 1 1 Specialty Diagnoses / Procedures Referred By Contac t Referred To Contact MR IMAGING Diagnoses Encounter for other preprocedural examination Partial symptomatic epilepsy with complex partial seizures, not intractable, without status epilepticus (HCC) Preoperative testing Procedures MRI BRAIN LOCALIZATION W IVCON UNLISTED MAGNETIC RESONANCE PROCED Evaristo Torres PA-C [address] [facility] [place] [address] Mr Imaging Referral ID Status Reason Start Date Expiration Date V isits Requested Visits Authorized [id number] Closed Auto-Generate d Referral 11/22/2022 11/18/2023 [address] Specialty Diagnoses / Procedures Referred By Contac t Referred To Contact CT IMAGING Diagnoses Encounter for other preprocedural examination Partial symptomatic epilepsy with complex partial seizures, not intractable, without status epilepticus (HCC) Preoperative testing Procedures CTA HEAD W IVCON CT ANGIOGRAPHY HEAD W/CONTRAST/NONCONTRAST Evaristo Torres PA-C [address] [facility] [place] [id number] Imaging Referral ID Status Reason Start Date Expiration Date V isits Requested Visits Authorized [id number] Closed Auto-Generate d Referral 11/22/2022 11/18/2023 1 1 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 Patient Pre-op Palpitations resolved Specialty Diagnoses / Procedures Referred By Contac t Referred To Contact Cardiology Diagnoses Preoperative testing Procedures CONSULT TO CARDIOLOGY OFFICE/OUTPATIENT NEW HIGH MDM 60-74 MINUTES Evaristo Torres PA-C [address] [facility] [place] [id number] Referral ID Status Reason Start Date Expiration Date V isits Requested Visits Authorized [id number] Closed PCP Requested Referral 10/19/2022 10/19/2023 1 1 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 Reason Comments Epilepsy Reason Comments Schedule Surgery right-sided temporal craniotomy Reason Comments Received Outside Medical Records [facility] Specialty Diagnoses / Procedures Referred By Contac t Referred To Contact MR IMAGING Diagnoses Encounter for other preprocedural examination Partial symptomatic epilepsy with complex partial seizures, not intractable, without status epilepticus (HCC) Preoperative examination Procedures MRI BRAIN LOCALIZATION WO IVCON UNLISTED MAGNETIC RESONANCE PROCED MRI BRAIN BRAIN STEM W/O CONTRAST MATERIAL Evaristo Torres PA-C [address] [place] [id number] Mr Imaging Referral ID Status Reason Start Date Expiration Date V isits Requested Visits Authorized [id number] Closed Auto-Generat ed Referral Patient Cleared - Admin/Chairm an/Director advise to proceed 01/10/2023 02/09/2024 1 1 Reason Comments Received Outside Medical Records [facility] Reason Comments Post-Op Visit Reason Onset Date Comments Refill Request 03/17/2023 Reason Onset Date Comments Refill Request 04/20/2023 Reason Comments Forms Panfilo flanagan my Reason Comments Other [facility] ED calling to speak with Dr. Marin; pt in ED d/t seizures Specialty Diagnoses / Procedures Referred By Andres angulo Referred To Contact MR IMAGING Diagnoses Partial symptomatic epilepsy with complex partial seizures, not intractable, without status epilepticus (HCC) S/P brain surgery Procedures MRI BRAIN WO IVCON MRI BRAIN BRAIN STEM W/O CONTRAST MATERIAL Claudio Michaels, KNITTED GARMENT FINISHER.WORLD TRAVEL COUNSELOR [address] [place] [phone] Mr Imaging [place] [address] Referral ID Status Reason Start Date Expiration Date V isits Requested Visits Authorized [id number] Closed Auto-Generate d Referral 03/10/2023 04/08/2024 1 1 Reason Comments Follow Up Reason Comments Patient Update Reason Comments Refill Request Reason Onset Date Comments Refill Request 10/29/2023 Reason Comments Epilepsy Follow Up Post-Op Visit Specialty Diagnoses / Procedures Referred By Contac t Referred To Contact Diagnoses Partial symptomatic epilepsy with complex partial seizures, not intractable, without status epilepticus (HCC) S/P brain surgery Procedures PROVIDER ORDERED FOLLOW UP OFFICE/OUTPATIENT [facility] MDM 60-74 MINUTES Claudio Michaels, KNITTED GARMENT FINISHER.WORLD TRAVEL COUNSELOR [address] [place] [address] Referral ID Status Reason Start Date Expiration Date V isits Requested Visits Authorized [id number] Closed PCP Requested Referral 01/25/2024 07/24/2024 1 1 Reason Comments Forms BMV Reason Comments Med Refill Reason Onset Date Comments Refill Request 07/19/2024 Reason Comments Medication Problem Briviact Goals (unrecognized section and content) Goals may be documented in a n alternate sectionGoals may be documented in an alternate sectionGoals may be documented in an alternate sectionGoals may be documented in an alternate sectionGoals may be documented in an alternate sectionGoals may be documented in an alternate sectionGoals may be documented in an alternate section No data available for this sectionGoals may be documented in an alternate section FOR RECORDS PERTAINING TO PATIENTS WHO [...] BE BASED ON THE PRIMARY CLINICAL RECORDS. [facility] [employer] provides no warranty or guarantee of the accuracy or completeness of information in this document.
[2024-08-02] MEDS: ONDANSETRON 4 MG RAPDIS TABLET SL (19:17)
[2024-08-02] MEDS: ACETAMINOPHEN 500 MG TABLET 1000 MG PO (19:17)
[2024-08-02 19:34] LABS: Bilirubin Urine NEGATIVE (NEGATIVE); Blood Urine NEGATIVE (NEGATIVE); Clarity Urine CLEAR (CLEAR); Color Urine YELLOW (YELLOW); Glucose Urine UA NEGATIVE (NEGATIVE); Ketones Urine >=80 mg/dL (NEGATIVE); Leukocyte Esterase Urine NEGATIVE (NEGATIVE); Nitrite Urine NEGATIVE (NEGATIVE); Protein Urine NEGATIVE (NEG/TRACE); Specific Gravity Urine >=1.030 (1.005-1.025); Urobilinogen Urine 0.2 EU/dL (0.2-1.0)
[2024-08-02 19:42] LABS: Bacteria Urine TRACE #/HPF (NONE SEEN); RBC Urine NONE SEEN #/HPF (0-2); WBC Urine 0-2 #/HPF (NONE SEEN)
[2024-08-02 19:43] LABS: Cast Seen? NONE SEEN #/LPF (NONE SEEN); Crystals Seen? None Seen #/HPF (None Seen); Mucus Urine MODERATE (NONE SEEN); Squamous Epithelial Cell Urine MODERATE #/LPF (NONE/RARE)
[2024-08-02 19:44] LABS: HCG Quantitative 19275 mIU/mL
--- NOTE | 2024-08-02 19:59 | ED.ABDPAIN1 ---
Documented by User: Essence Cates 08/02/24 20:03 HPI - Abdominal Pain General Chief Complaint: Abdominal Pain Stated Complaint: CRAMPING 6 WKS , WAS HERE YESTERDAY Time Seen by Provider: 08/02/24 18:51 Source: patient Mode of arrival: walk-in Limitations: no limitations History of Present Illness HPI narrative: 23-year-old female presents to the ED with a chief complaint abdominal cramping. Patient states she is believes she is approximately 6 weeks . She states she has had a history of a miscarriage 2 years ago. She is 2 para 0. Denies knowing what her blood type is but has not ever received a RhoGAM shot. She denies any vaginal bleeding. She has no vaginal discharge. Related Data Home Medications ?Medication ?Instructions ?Recorded ?Confirmed brivaracetam 100 mg tablet 100 mg PO BID 09/14/23 12/31/23 (Briviact) Previous Rx's ?Medication ?Instructions ?Recorded famotidine 20 mg tablet (Pepcid) 20 mg PO BID #10 tabs 12/31/23 meloxicam 15 mg tablet 15 mg PO DAILY PRN pain #10 tabs 12/31/23 Allergies Allergy/AdvReac Type Severity Reaction Status Date / Time Iodinated Contrast Media Allergy Severe Hives Verified 08/02/24 18:51 zonisamide Allergy Severe Hallucinati Verified 08/02/24 18:51 ng morphine AdvReac Severe elmore her Verified 08/02/24 18:51 viens Review of Systems ROS Narrative All Systems are negative except as noted/marked.All systems reviewed and otherwise negative PFSH PFSH Social History Little interest or pleasure in doing things: not at all Feeling down, depressed, or hopeless: not at all Exam Narrative Exam Narrative: All Systems are negative except as noted/marked.All systems reviewed and otherwise negative Nurses note and vital signs reviewed and patient is not hypoxic. General: The patient appears well and in no apparent distress. Patient is resting comfortably on cart. Skin: Warm, dry, no pallor noted. There is no rash noted. Head: Normocephalic, atraumatic Eye: Normal conjunctiva, no drainage, EOMI. PERRL Ears, Nose, Mouth, and Throat: oral mucosa is moist. Nares patent. Mouth without vesicles. Ear canals patent. Tm's without Erythema Cardiovascular: Regular Rate and Rhythm Respiratory: Patient is in no distress, no accessory muscle use, lungs are clear to auscultation, no wheezing, rales or rhonchi Back: non-tender, no CVA tenderness bilaterally to percussion. GI: Normal bowel sounds, no tenderness to palpation, no masses appreciated. No rebound, guarding, or rigidity noted. : Cervical os closed , no active bleeding no vaginal discharge Musculoskeletal: The patient has no evidence of calf tenderness, no pitting edema, symmetrical pulses noted bilaterally Neurological: A&O x4, normal speech Psychiatric: Cooperative Constitutional Vital Signs, click to edit/add: Last Vital Signs Temp 98.8 F 08/02/24 18:46 Pulse 80 08/02/24 20:03 Resp 16 08/02/24 20:03 BP 126/86 08/02/24 20:03 Pulse Ox 99 08/02/24 20:03 O2 Del Method Room Air 08/02/24 20:03 Course Vital Signs Vital signs: Vital Signs Temperature 98.8 F 08/02/24 18:46 Pulse Rate 89 08/02/24 18:46 Respiratory Rate 20 08/02/24 18:46 Blood Pressure 141/85 08/02/24 18:46 Pulse Oximetry 98 08/02/24 18:46 Oxygen Delivery Method Room Air 08/02/24 18:46 Temperature 98.8 F 08/02/24 18:46 Pulse Rate 80 08/02/24 20:03 Respiratory Rate 16 08/02/24 20:03 Blood Pressure 126/86 08/02/24 20:03 Pulse Oximetry 99 08/02/24 20:03 Oxygen Delivery Method Room Air 08/02/24 20:03 MDM - Abdominal Pain MDM Narrative Medical decision making narrative: 23-year-old female presents to the ED with a chief complaint abdominal cramping. Patient states she is believes she is approximately 6 weeks . She states she has had a history of a miscarriage 2 years ago. She is 2 para 0. Denies knowing what her blood type is but has not ever received a RhoGAM shot. She denies any vaginal bleeding. She has no vaginal discharge. Abdominal cramping no active bleed this time. exam is benign pelvic exam cervical os is closed there is no vaginal bleeding or discharge. Patient's had a history of miscarriage in the past quant was observed today. Patient will have a quant in 48 hours she does have an appoint with her [employer] on 08/05/2024. Patient's blood type is a positive. Patient discharged home. Differential Diagnosis Differential diagnosis: Likely abdominal pain and other (threatedned miscarriage) Medical Records Attestation: I reviewed the patient's medical records. Lab Data Attestation: I reviewed the patient's lab results. Labs: Lab Results 08/02/24 08/02/24 Range/Units 19:01 19:19 HCG, Quant [id number] mIU/mL Urine Color Yellow (YELLOW) Urine Clarity Clear (CLEAR) Urine pH 6.0 (5.0-9.0) Ur Specific Burkett >=1.030 A (1.005-1.025) Urine Protein Negative (NEG/TRACE) mg/dL Urine Glucose (UA) Negative (NEGATIVE) mg/dL Urine Ketones >=80 A (NEGATIVE) mg/dL Urine Occult Blood Negative (NEGATIVE) Urine Nitrite Negative (NEGATIVE) Urine Bilirubin Negative (NEGATIVE) Urine Urobilinogen 0.2 (0.2-1.0) EU/dL Ur Leukocyte Esterase Negative (NEGATIVE) Urine RBC None seen (0-2) #/HPF Urine WBC 0-2 A (NONE SEEN) #/HPF Ur Squamous Epith Cells Moderate A (NONE/RARE) #/LPF Urine Crystals None seen (None Seen) #/HPF Urine Bacteria Trace A (NONE SEEN) #/HPF Urine Casts None seen (NONE SEEN) #/LPF Urine Mucus Moderate A (NONE SEEN) Blood Type A Positive Discharge Plan Discharge Chief Complaint: Abdominal Pain Clinical Impression: Abdominal pain affecting , antepartum Patient Disposition: Home, Self-Care Time of Disposition Decision: 19:56 Condition: Good Prescriptions / Home Meds: No Action Briviact 100 mg tablet 100 mg PO BID famotidine [Pepcid] 20 mg tablet 20 mg PO BID Qty: 10 0RF meloxicam 15 mg tablet 15 mg PO DAILY PRN (Reason: pain ) Qty: 10 0RF Print Language: Armenian Instructions: Abdominal Pain in (ED) Additional Instructions: follow up with DR Vieyra as scheduled on mondayaug 05 Referrals: HINA BAILEY [Primary Care Provider] - 1 week Discharge Date/Time: 08/02/24 20:03 Documented by User: Juice Alexis MD 08/02/24 20:08 HPI - Abdominal Pain General Chief Complaint: Abdominal Pain Stated Complaint: CRAMPING 6 WKS , WAS HERE YESTERDAY Time Seen by Provider: 08/02/24 18:51 Related Data Home Medications ?Medication ?Instructions ?Recorded ?Confirmed brivaracetam 100 mg tablet 100 mg PO BID 09/14/23 12/31/23 (Briviact) Previous Rx's ?Medication ?Instructions ?Recorded famotidine 20 mg tablet (Pepcid) 20 mg PO BID #10 tabs 12/31/23 meloxicam 15 mg tablet 15 mg PO DAILY PRN pain #10 tabs 12/31/23 Allergies Allergy/AdvReac Type Severity Reaction Status Date / Time Iodinated Contrast Media Allergy Severe Hives Verified 08/02/24 18:51 zonisamide Allergy Severe Hallucinati Verified 08/02/24 18:51 ng morphine AdvReac Severe elmore her Verified 08/02/24 18:51 viens PFSH PFSH Social History Little interest or pleasure in doing things: not at all Feeling down, depressed, or hopeless: not at all Exam Constitutional Vital Signs, click to edit/add: Last Vital Signs Temp 98.8 F 08/02/24 18:46 Pulse 80 08/02/24 20:03 Resp 16 08/02/24 20:03 BP 126/86 08/02/24 20:03 Pulse Ox 99 08/02/24 20:03 O2 Del Method Room Air 08/02/24 20:03 Course Vital Signs Vital signs: Vital Signs Temperature 98.8 F 08/02/24 18:46 Pulse Rate 89 08/02/24 18:46 Respiratory Rate 20 08/02/24 18:46 Blood Pressure 141/85 08/02/24 18:46 Pulse Oximetry 98 08/02/24 18:46 Oxygen Delivery Method Room Air 08/02/24 18:46 Temperature 98.8 F 08/02/24 18:46 Pulse Rate 80 08/02/24 20:03 Respiratory Rate 16 08/02/24 20:03 Blood Pressure 126/86 08/02/24 20:03 Pulse Oximetry 99 08/02/24 20:03 Oxygen Delivery Method Room Air 08/02/24 20:03 MDM - Abdominal Pain MDM Narrative Medical decision making narrative: 23-year-old female presents to the ED with a chief complaint abdominal cramping. Patient states she is believes she is approximately 6 weeks . She states she has had a history of a miscarriage 2 years ago. She is 2 para 0. Denies knowing what her blood type is but has not ever received a RhoGAM shot. She denies any vaginal bleeding. She has no vaginal discharge. Abdominal cramping no active bleed this time. exam is benign pelvic exam cervical os is closed there is no vaginal bleeding or discharge. Patient's had a history of miscarriage in the past quant was observed today. Patient will have a quant in 48 hours she does have an appoint with her [employer] on 08/05/2024. Patient's blood type is a positive. Patient discharged home. I, Dr Alexis, have reviewed the above progress note and course of action in the ER; agree with the above. I have gone over history and physical, and discussed disposition and treatment plan with the patient. Lab Data Labs: Lab Results 08/02/24 08/02/24 Range/Units 19:01 19:19 HCG, Quant [id number] mIU/mL Urine Color Yellow (YELLOW) Urine Clarity Clear (CLEAR) Urine pH 6.0 (5.0-9.0) Ur Specific Burkett >=1.030 A (1.005-1.025) Urine Protein Negative (NEG/TRACE) mg/dL Urine Glucose (UA) Negative (NEGATIVE) mg/dL Urine Ketones >=80 A (NEGATIVE) mg/dL Urine Occult Blood Negative (NEGATIVE) Urine Nitrite Negative (NEGATIVE) Urine Bilirubin Negative (NEGATIVE) Urine Urobilinogen 0.2 (0.2-1.0) EU/dL Ur Leukocyte Esterase Negative (NEGATIVE) Urine RBC None seen (0-2) #/HPF Urine WBC 0-2 A (NONE SEEN) #/HPF Ur Squamous Epith Cells Moderate A (NONE/RARE) #/LPF Urine Crystals None seen (None Seen) #/HPF Urine Bacteria Trace A (NONE SEEN) #/HPF Urine Casts None seen (NONE SEEN) #/LPF Urine Mucus Moderate A (NONE SEEN) Blood Type A Positive Discharge Plan Discharge Chief Complaint: Abdominal Pain Clinical Impression: Abdominal pain affecting , antepartum Patient Disposition: Home, Self-Care Time of Disposition Decision: 19:56 Condition: Good Prescriptions / Home Meds: No Action Briviact 100 mg tablet 100 mg PO BID famotidine [Pepcid] 20 mg tablet 20 mg PO BID Qty: 10 0RF meloxicam 15 mg tablet 15 mg PO DAILY PRN (Reason: pain ) Qty: 10 0RF Print Language: Armenian Instructions: Abdominal Pain in (ED) Additional Instructions: follow up with DR Vieyra as scheduled on mondayaug 05 Referrals: HINA BAILEY [Primary Care Provider] - 1 week Discharge Date/Time: 08/02/24 20:03
[2024-08-02 20:03] VITALS: BP 126/86; PULSE 80; O2SAT 99
== END 2024-08-02 20:03 | disposition home or self-care (01) ==
PROVIDERS: Physician Assistant; Emergency Provider Emergency Medicine; PCP Family Medicine
DX: O99.891 Other specified diseases and conditions complicating pregnancy (principal); R10.9 Unspecified abdominal pain; Z3A.01 Less than 8 weeks gestation of pregnancy
CPT/HCPCS: 36415; 81001; 84702; 86900; 86901; 99283; Q0162

== ENCOUNTER 2024-08-04 12:14 | Outpatient (OUT) | payer OTHER, MEDICAID, SELFPAY ==
--- OUTSIDE RECORDS SUMMARY | 2024-08-04 12:18 | XMS_ITS | CCD ---
Author Organization [facility] Care Team Providers Care Acid Cutter Name Role Phone Kamran TORRE, Remi Dahl Primary Care Provider MD Remi Andrew Primary Care Provider [phone] ELANA WelshGLENN Lamb Emergency Provider [phone] DO Brando Guy Emergency Provider KRISTA Barlow Emergency Provider KRISTA Barlow Attending Provider DO Bill Keith Emergency Provider Remi Andrew MD Primary Care Provider Kamran OTRRE, Remi Dahl Primary Care Provider Remi Andrew MD Primary Care Provider MD Remi Andrew Primary Care Provider MD Sedrick Pina Jr Emergency Provider KRISTA Funk Emergency Provider DO Shashi Ornelas Emergency Provider MD Remi Batista Primary Care Provider KRISTA Barlow Emergency Provider Travis LAWSON, Jessa Odonnell Unavailable Remi Andrew MD Primary Care Provider NONE, XXXX Primary Care Physician Unavailab Robyn Castrejon Attending Unavailable Robyn Bundy Admitting Unavailable Remi Andrew MD Primary Care Provider [phone] MD Remi Andrew Primary Care Provider MD Remi Andrew Attending Provider SERGEI HARRISON Attending Unavailable LAUSE, CHRISTIE R Attending Unavailable LAUSE, CHRISTIE R Attending Unavailable LAUSE, CHRISTIE R Attending Unavailable WARCHOL, ESSENCE Attending Unavailable WARCHOL, ESSENCE Attending Unavailable Andrew, Remi Primary Care Unavailable Feng Barlow Attending Unavailable Feng Barlow Admitting Unavailable Andrew, Remi Admitting Unavailable Andrew, Remi Attending Unavailable Andrew, Remi Primary Care Unavailable Warchol DISULFURIZER TENDER, Essence Unavailable Michelle DISULFURIZER TENDER, Christie R Unavailable [phone] Sergei Harrison DO Unavailable ANDREW, REMI JORGE Primary Care Unavailable RAMOS HSERIN FEROZ P Attending Unavailable SELF Referring Unavailable ANDREW, REMI JORGE Primary Care Unavailable FEROZ WHITE P Attending Unavailable ANDREW, REMI JORGE Primary Care Unavailable DONGBEL, CLAUDIO Referring Unavailable WARBEL, CLAUDIO Attending Unavailable SELF Referring Unavailable ANDREW, REMI JORGE Primary Care Unavailable RAMOS SHERIN FEROZ P Attending Unavailable LONA URRUTIA Attending Unavailable ANDREW, REMI JORGE Primary Care Unavailable ANDREW, REMI JORGE Primary Care Unavailable ROBERT MARIN Attending Unavailable ANDREW, REMI JORGE Primary Care Unavailable Allergies Allergy Classification Reported Allergen(s) Allergy Type Date of Onset Reaction(s) Facility (20 sources) Iodinated Contrast Media; Translations: [IODINATED CONTRAST MEDIA] Drug Intolerance 7 Hives, Itching, Anaphylaxis, Dizziness, Headache, Rash, Shortness of breath [facility] (20 sources) Morphine; Translations: [MORPHINE] Drug Allergy 2 Intolerance [facility] Work Phone: (20 sources) zonisamide; Translations: [ZONISAMIDE] Drug Allergy 2 Mental Status Change, GI Upset, Vomiting, Shortness of Breath [facility] (3 sources) Contrast media Propensity to adverse reactions 2 Anaphylaxis [facility] (6 sources) Iodine Drug Allergy 3 [facility] (6 sources) Zonisamide Allergy to substance 2 GI intolerance, Shortness of breath [facility] (1 source) Morphine Drug Allergy 3 [facility] (1 source) zonisamide Drug Allergy 3 [facility] (1 source) Iodinated Contrast Media Drug allergy (disorder) 3 [facility] Medications Current Medications Medication Drug [...] tablet by jaron th twice daily for 180 days. Do not [...] every week cholecalciferol (Vitamin D-3) 1.25 MG (91204 UT) capsule Indications: Vitamin D deficiency Take [...] days. docusate sodium 50 mg / sennosides, retirement 8.6 mg oral tablet (8 sources) Start: [...] MG tablet Indications: MARCO (generalized anxiety disorder) (CMS/[facility]) Take 1 tablet (20 mg) [...] Start: 07-11-2022 take 2 tablets by mo [facility] twice daily lamoTRIgine dispersible/chewable (LAMICTAL) 25 mg [...] on above: Take 6 tablets by mo ut twice daily. Increase to this dose as instructed. Follow schedule to r each 150mg BID Follow schedule to r each 200 mg twice daily Take 2 tablets by mo ut twice daily. Take 2 tablets by mo uth twice daily. Increase as directed take along with the 100mg tablets. Take 8 tablets by mo uth twice daily. Follow schedule to reach 200 mg twice daily levETIRAcetam 100 mg/ml oral solution (18 sources) Start: End: 2 take 5 mL by mouth twice daily [...] (1 source) RNA Synthetase Inhibitor Antibacterial Start: 023 End: mupirocin (BACTROBAN) 2 % ointment Apply [...] Macrocrystal Active 100 MG PO Twice daily 4 March 12, 2023 12:00am must administer with a meal/food perflutren lipid microspheres 1.3 mL in NaCl (PF) 0.9% 10 mL injection (DEFINITY) (5 sources) Start: End: perflutren lipid microspheres 1.3 mL in NaCl (PF) 0.9% 10 mL injection (DEFINITY) phenazopyridine hydrochloride 200 mg oral tablet (10 sources) Start: take 200 mg by mouth three times daily at mealtime Phenazopyridine Active 200 MG PO Three times daily 10 3 March 10, 2023 12:00am administer with a [...] Comment on above: Take 1 tablet by [facility] at 08:30 AM on 11/22 prior to MRI Inject 50 mg intrave nously one time only for 1 dose. For prevention of contrast allergy given 1 hour prior to exam. ibuprofen 600 mg oral tablet (20 sources) Nonsteroidal Anti-inflammatory Drug Start: End: take 600 mg by mouth every [...] Start: 12-22-2022 take 2 tablets by mo ut every eight hours as needed methocarbamol (ROBAXIN) 500 mg tablet Take 2 tablets by mouth every 8 hours as needed. 30 tablet 0 12/22/2022 Active Comment on above: Take 2 tablets by mo uth every 8 hours as needed. Take 1 [...] SERPL-MCNC 1.2 ug/mL 0.2 - 2.0 ug/mL [facility] Comment on above: This test was develo ped, and its performance characteristics determined by the [facility] Department of Pathology and Laboratory Medicine. It has not been cleared or approved by the FDA. The [facility] Department of Pathology and Laboratory Medicine is regulated under CLIA as qualified to perform high-complexity testing. This test is used for clinical purposes. It should not be regarded as investigational or for research. Specimen Type: BLOOD SPECIMEN Ordering Facility: [facility] Address: [address] [place] [address] Original Ordering Provider: CLAUDIO VAZQUEZ [facility] Brivaracetam SerPl-mCncon Brivaracetam [Mass/Vol] 1.2 ug/mL Normal 0.2-2.0 [facility] Comment on above: Order Comment: Speci men Type: BLOOD SPECIMEN Ordering Facility: [facility] Address: [address] [place], [place] [address] Result Comment: This test was developed, and its performance characteristics determined by the [facility] Department of Pathology and Laboratory Medicine. It has not been cleared or approved by the FDA. The [facility] Department of Pathology and Laboratory Medicine is regulated under CLIA as qualified to perform high-complexity testing. This test is used for clinical purposes. It should not be regarded as investigational or for research. Performed By: #### 8 8894-1 #### [facility] CLIA [id number] [address] [place] [address] [place] CNPDaphne 07-25-2024 CNPN Telephone (NE50MN) KWASI HEBERT ([id number]) 4 F Date Time Provider Department 07/25/24 ROBERT MARIN NE50MN During your visit today, we recorded the following information about you: Gisell Ruiz 07/25/2024 3:04 PM Signed Medication Concern Person Calling: Kwasi Hebert Name of medication: Briviact Concern with medication: Patient recently found out she is - approx. 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] Order(s):BRIVARACETAM [SQBRIV] Order #: [id number] FUTURE CONSULT TO [facility] [454803] Order #: [id number]: 1 Prescriptions as of 07/25/2024 - brivaracetam [...] Status:Closed by ALBIN MAJOR on 07/25/24 Normal [facility] CNPNon 05-31-2024 CNPN Telephone (NE50MN) KWASI HEBERT ([id number]) 4 F Date Time Provider Department 05/31/24 ROBERT MARIN NE50MN During your visit today, we recorded the following information about you: Saurabh Kathy 05/31/2024 12:24 PM Signed Form received: From (agency / facility): [facility] personal investment adviser (if given): Kwasi Hebert Phone #: [phone] (home) Fax # : [phone] Information requested: Request for physician statement Patient of Dr. Marin Forwarded to nurse. Tahira Colunga RN 05/31/2024 2:05 PM Signed Last visit: 07/24/23 Next visit: 06/10/24 ASM: NEEDS VERIFIED WITH PATIENT Oxcarbazepine 600mg AM and 900mg PM Last labs: 2022 Seizure onset: 6 yrs ago Last seizure: NEEDS VERIFIED WITH PATIENT Call to pt no answer, msg left. [employer] message sent. CHERYL Pedraza Lynn, RN 06/03/2024 9:16 AM Signed Appointment 06/10/24 CHERYL Gray Lynn, CHERYL 06/10/2024 11:24 AM Signed Patient cleared for driving from Dr. Marin in appointment today. [facility] form completed and routed to Dr. Marin for signature thru docusign One copy faxed to [facility] One copy fax[facility] to [facility] [...] Assessed Reason for Visit: Forms [913] Cmt: BMV Prescriptions as of 06/10/2024 - folic acid [...] Status:Closed by TAHIRA COLUNGA on 05/31/24 Normal [facility] Alanine aminotransferase [En zymatic activity/volume] in Serum or PlasmaOrdered By: Christie Aldana on 03-28-2024 ALT [Catalytic activity/Vol] 12 U/L Normal 7-52 [facility] Comment on above: Performed By: #### T SH3, T4F, CBC, CMP, B12, LIPID, [id number] #### [facility] [address] Albumin [Mass/volume] in Ser um or Plasma by Bromocresol green (BCG) dye binding methoOrdered By: Christie Aldana on 03-28-2024 Albumin BCG dye [Mass/Vol] 4.6 g/dL 3.5-5.7 [facility] Alkaline phosphatase [Enzyma tic activity/volume] in Serum or PlasmaOrdered By: Christie Aldana on 03-28-2024 ALP [Catalytic activity/Vol] 59 U/L Normal 34-104 [facility] Comment on above: Performed By: #### T SH3, T4F, CBC, CMP, B12, LIPID, [id number] #### [address] Aspartate aminotransferase [ Enzymatic activity/volume] in Serum or PlasmaOrdered By: Christie Aldana on 03-28-2024 AST [Catalytic activity/Vol] 15 U/L Normal 13-39 [facility] Comment on above: Performed By: #### T SH3, T4F, CBC, CMP, B12, LIPID, [id number] #### [place] [address] [place] Automated basophil %Ordered By: Christie Aldana on 03-28-2024 Basophils/100 WBC (Bld) 1.2 % Normal . [facility] Comment on above: Performed By: #### T SH3, T4F, CBC, CMP, B12, LIPID, [id number] #### [facility] [address] [place] [address] [place] Automated basophil countOrde red By: Christie Aldana on 03-28-2024 Basophils (Bld) [#/Vol] 0.1 10*3/uL Normal 0.0-0.2 [facility] Comment on above: Result Comment: PERF ORMED BY: [place] [address] PATHOLOGIST NETBACKUP ENGINEER JUAN GALVEZ M.D. Performed By: #### T SH3, T4F, CBC, CMP, B12, LIPID, [id number] #### [address] Automated blood monocyte cou ntOrdered By: Christie Aldana on 03-28-2024 Monocytes (Bld) [#/Vol] 0.3 10*3/uL Normal 0.0-0.8 [facility] Comment on above: Performed By: #### T SH3, T4F, CBC, CMP, B12, LIPID, [id number] #### [address] Automated eosinophil %Ordere d By: Christie Aldana on 03-28-2024 Eosinophils/100 WBC (Bld) 3.7 % Normal . [facility] Comment on above: Performed By: #### T SH3, T4F, CBC, CMP, B12, LIPID, [id number] #### [address] Automated eosinophil countOr dered By: Christie Aldana on 03-28-2024 Eosinophils (Bld) [#/Vol] 0.2 10*3/uL Normal 0.0-0.45 [facility] Comment on above: Performed By: #### T SH3, T4F, CBC, CMP, B12, LIPID, [id number] #### [address] Automated monocyte %Ordered By: Christie Aldana on 03-28-2024 Monocytes/100 WBC (Bld) 7.4 % Normal . [facility] Comment on above: Performed By: #### T SH3, T4F, CBC, CMP, B12, LIPID, [id number] #### [facility] [address] Automated neutrophil %Ordere d By: Christie Aldana on 03-28-2024 Neutrophils/100 WBC (Bld) 51.7 % Normal . [facility] Comment on above: Performed By: #### T SH3, T4F, CBC, CMP, B12, LIPID, [id number] #### [facility] [address] Bilirubin.total [Mass/volume ] in Serum or PlasmaOrdered By: Christie Aldana on 03-28-2024 Bilirubin [Mass/Vol] 0.4 mg/dL Normal 0.3-1.0 [facility] Comment on above: Performed By: #### T SH3, T4F, CBC, CMP, B12, LIPID, [id number] #### [place] [address] [place] Calcium [Mass/volume] in Ser um or PlasmaOrdered By: Christie Aldana on 03-28-2024 Calcium [Mass/Vol] 9.6 mg/dL Normal 8.6-10.3 [facility] Comment on above: Performed By: #### T SH3, T4F, CBC, CMP, B12, LIPID, [id number] #### [address] Carbon dioxide, total [Moles /volume] in Serum or PlasmaOrdered By: Christie Aldana on 03-28-2024 CO2 [Moles/Vol] 32.0 mmol/L High 21.0-31.0 [facility] Comment on above: Performed By: #### T SH3, T4F, CBC, CMP, B12, LIPID, [id number] #### [facility] [address] [place] [address] [place] Chloride [Moles/volume] in S nury or PlasmaOrdered By: Christie Aldana on 03-28-2024 Chloride [Moles/Vol] 104 mmol/L Normal 98-107 [facility] Comment on above: Performed By: #### T SH3, T4F, CBC, CMP, B12, LIPID, [id number] #### [facility] [address] [place], [place] [address] Cholesterol [Mass/volume] in Serum or PlasmaOrdered By: Christie Aldana on 03-28-2024 Cholesterol [Mass/Vol] 171 mg/dL Normal 140-200 [facility] Comment on above: Chol less than 200 m g/dl low riskChol 201-239 mg/dl borderline riskChol 240 mg/dl and greater high risk Result Comment: Chol less than 200 mg/dl low risk Chol 201-239 mg/dl borderline risk Chol 240 mg/dl and greater high risk Performed By: #### T SH3, T4F, CBC, CMP, B12, LIPID, [id number] #### [facility] [address] [place] [id number] [facility] Cholesterol in LDL Calc [Mas s/Vol]Ordered By: Christie Aldana on 03-28-2024 Cholesterol in LDL [Mass/Vol] 118 mg/dL High 0-100 [facility] Comment on above: LDL ATP III CLASSIFI CATIONLDL less than 100 mg/dL OptimalLDL 100-129 mg/dL Near or above optimalLDL 130-159 mg/dL Borderline highLDL 160-189 mg/dL HighLDL greater than 189 mg/dL Very high Cholesterol in VLDL Calc [Ma ss/Vol]Ordered By: Christie Aldana on 03-28-2024 Cholesterol in VLDL [Mass/Vol] 12 mg/dL [facility] Complete Blood Count Auto Di ffon 03-28-2024 Mean Corpuscular HGB Conc 33.0 g/dL Normal 32.0-35.0 [facility] Comment on above: Performed By: #### T SH3, T4F, CBC, CMP, B12, LIPID, [id number] #### [facility] [address] [place] [id number] [facility] NRBC% 0.1 /100{WBC} Normal 0-0.5 [facility] Comment on above: Performed By: #### T SH3, T4F, CBC, CMP, B12, LIPID, [id number] #### [facility] [address] [place] [id number] [facility] Comprehensive Metabolic Pane manjit 03-28-2024 Albumin [Mass/Vol] 4.6 g/dL Normal 3.5-5.7 [facility] Comment on above: Performed By: #### T SH3, T4F, CBC, CMP, B12, LIPID, [id number] #### [address] GFR/1.73 sq M.predicted MDRD (S/P/Bld) [Vol rate/Area] mL/min/{1.73_m2} Normal [facility] Comment on above: Performed By: #### T SH3, T4F, CBC, CMP, B12, LIPID, [id number] #### [address] Creatinine [Mass/volume] in Serum or PlasmaOrdered By: Christie Aldana on 03-28-2024 Creatinine [Mass/Vol] 0.92 mg/dL Normal 0.60-1.20 [facility] Comment on above: Performed By: #### T SH3, T4F, CBC, CMP, B12, LIPID, [id number] #### [address] Erythrocyte distribution wid th [Ratio] by Automated countOrdered By: Christie Aldana on 03-28-2024 Erythrocyte distribution width (RBC) [Ratio] 13.9 % Normal 11.9-15.3 [facility] Comment on above: Performed By: #### T SH3, T4F, CBC, CMP, B12, LIPID, [id number] #### [address] Erythrocytes [#/volume] in B lood by Automated countOrdered By: Christie Aldana on 03-28-2024 RBC (Bld) [#/Vol] 4.63 10*6/uL Normal 3.60-5.00 [facility] Comment on above: Performed By: #### T SH3, T4F, CBC, CMP, B12, LIPID, [id number] #### [place] [address] [place] Glucose [Mass/volume] in Ser um or PlasmaOrdered By: Christie Aldana on 03-28-2024 Glucose [Mass/Vol] 80 mg/dL Normal 70-100 [facility] Comment on above: ADA recommended refe dannie ramirezRandom Glucose Reference Range is dependent on time and content of last meal. Glucose of more than 200 mg/dL in a nonstressed, ambulatory subject supports the diagnosis of Diabetes Mellitus. Result Comment: [place] om Glucose Reference Range is dependent on time and content of last meal. Glucose of more than 200 mg/dL in a nonstressed, ambulatory subject supports the diagnosis of Diabetes Mellitus. ADA recommended reference range Performed By: #### T SH3, T4F, CBC, CMP, B12, LIPID, [id number] #### [facility] [address] Hematocrit [Volume Fraction] of Blood by Automated countOrdered By: Christie Aldana on 03-28-2024 Hematocrit (Bld) [Volume fraction] 41.6 % Normal 34.0-46.4 [facility] Comment on above: Performed By: #### T SH3, T4F, CBC, CMP, B12, LIPID, [id number] #### [facility] [address] Hemoglobin [Mass/volume] in BloodOrdered By: Christie Aldana on 03-28-2024 Hemoglobin (Bld) [Mass/Vol] 13.7 g/dL Normal 11.8-15.4 [facility] Comment on above: Performed By: #### T SH3, T4F, CBC, CMP, B12, LIPID, [id number] #### [facility] [address] Leukocytes [#/volume] correc deni for nucleated erythrocytes in Blood by Automated counOrdered By: Christie Aldana on 03-28-2024 WBC corrected for nucl RBC Auto (Bld) [#/Vol] 4.5 10*3/uL 3.8-11.6 [facility] Leukocytes [#/volume] in Blo od by Automated countOrdered By: Christie Aldana on 03-28-2024 WBC (Bld) [#/Vol] 4.5 10*3/uL Normal 3.8-11.6 [facility] Comment on above: Performed By: #### T SH3, T4F, CBC, CMP, B12, LIPID, [id number] #### [facility] [address] Lipid Panelon 03-28-2024 LDL Cholesterol,Calculated 118 mg/dL High 0-100 [facility] Comment on above: Result Comment: LDL ATP III CLASSIFICATION LDL less than 100 mg/dL Optimal LDL 100-129 mg/dL Near or above optimal LDL 130-159 mg/dL Borderline high LDL 160-189 mg/dL High LDL greater than 189 mg/dL Very high Performed By: #### T SH3, T4F, CBC, CMP, B12, LIPID, [id number] #### [address] Triglyceride w/Reflex 63 mg/dL Normal 0-149 [facility] Comment on above: Result Comment: TRIG ATP III CLASSIFICATION TRIG less than 150 mg/dL Normal TRIG 150-199 mg/dL Borderline high TRIG 200-500 mg/dL High TRIG greater than 500 mg/dL Very high Standard traceable to the Center for Disease Conrtrol and Prevention (CDC) test method. Performed By: #### T SH3, T4F, CBC, CMP, B12, LIPID, [id number] #### [address] VLDL CHOLESTEROL 12 mg/dL Normal [facility] Comment on above: Performed By: #### T SH3, T4F, CBC, CMP, B12, LIPID, [id number] #### [address] Lymphocytes [#/volume] in Bl ood by Automated countOrdered By: Christie Aldana on 03-28-2024 Lymphocytes (Bld) [#/Vol] 1.6 10*3/uL Normal 1.00-4.8 [facility] Comment on above: Performed By: #### T SH3, T4F, CBC, CMP, B12, LIPID, [id number] #### [address] Lymphocytes/100 leukocytes i n Blood by Automated countOrdered By: Christie Aldana on 03-28-2024 Lymphocytes/100 WBC (Bld) 36.0 % Normal . [facility] Comment on above: Performed By: #### T SH3, T4F, CBC, CMP, B12, LIPID, [id number] #### [address] MCH [Entitic mass] by Automa deni countOrdered By: Christie Aldana on 03-28-2024 MCH (RBC) [Entitic mass] 29.7 pg Normal 24.7-34.3 [facility] Comment on above: Performed By: #### T SH3, T4F, CBC, CMP, B12, LIPID, [id number] #### [address] MCHC Auto (RBC) [Mass/Vol]Or dered By: Christie Aldana on 03-28-2024 MCHC (RBC) [Mass/Vol] 33.0 g/dL 32.0-35.0 [facility] MCV [Entitic volume] by Auto mated countOrdered By: Christie Aldana on 03-28-2024 MCV (RBC) [Entitic vol] 89.9 fL Normal 80-100 [facility] Comment on above: Performed By: #### T SH3, T4F, CBC, CMP, B12, LIPID, [id number] #### [address] Neutrophils [#/volume] in Bl ood by Automated countOrdered By: Christie Aldana on 03-28-2024 Neutrophils (Bld) [#/Vol] 2.3 10*3/uL Normal 1.8-7.7 [facility] Comment on above: Performed By: #### T SH3, T4F, CBC, CMP, B12, LIPID, [id number] #### [address] No Panel InformationOrdered By: Christie Aldana on 03-28-2024 Estimated GFR (CKD-EPI) > 60.0 mL/Min [facility] Creatinine Clearance (Chem N/A [facility] Nucleated erythrocytes [Pres ence] in Blood by Automated countOrdered By: Christie Aldana on 03-28-2024 Nucleated RBC Auto Ql (Bld) 0.1 /100{WBC} 0-0.5 [facility] Platelet mean volume [Entiti c volume] in Blood by Automated countOrdered By: Christie Aldana on 03-28-2024 Platelet mean volume (Bld) [Entitic vol] 9.5 fL Normal 6.3-10.7 [facility] Comment on above: Performed By: #### T SH3, T4F, CBC, CMP, B12, LIPID, [id number] #### [facility] [address] [place] [address] [place] Platelets [#/volume] in Bloo d by Automated countOrdered By: Christie Aldana on 03-28-2024 Platelets (Bld) [#/Vol] 201 10*3/uL Normal 150-450 [facility] Comment on above: Performed By: #### T SH3, T4F, CBC, CMP, B12, LIPID, [id number] #### [facility] [address] Potassium [Moles/volume] in Serum or PlasmaOrdered By: Christie Aldana on 03-28-2024 Potassium [Moles/Vol] 4.4 mmol/L Normal 3.5-5.1 [facility] Comment on above: Performed By: #### T SH3, T4F, CBC, CMP, B12, LIPID, [id number] #### [facility] [address] [place] [address] [place] Protein [Mass/volume] in Ser um or PlasmaOrdered By: Christie Aldana on 03-28-2024 Protein [Mass/Vol] 6.8 g/dL Normal 6.4-8.9 [facility] Comment on above: Performed By: #### T SH3, T4F, CBC, CMP, B12, LIPID, [id number] #### [facility] [address] Serum globulin measurement b y calculation (mass/volume)Ordered By: Christie Aldana on 03-28-2024 Globulin (S) [Mass/Vol] 2.2 g/dL Normal [facility] Comment on above: Performed By: #### T SH3, T4F, CBC, CMP, B12, LIPID, [id number] #### [facility] [address] Serum or plasma albumin/glob ulin mass ratioOrdered By: Christie Aldana on 03-28-2024 Albumin/Globulin [Mass ratio] 2.1 {ratio} Normal [facility] Comment on above: Performed By: #### T SH3, T4F, CBC, CMP, B12, LIPID, [id number] #### [facility] [address] Serum or plasma anion gap de terminationOrdered By: Christie Aldana on 03-28-2024 Anion gap [Moles/Vol] 8.4 mmol/L Normal 6.0-15.0 [facility] Comment on above: Performed By: #### T SH3, T4F, CBC, CMP, B12, LIPID, [id number] #### [facility] [address] Serum or plasma high density lipoprotein (HDL) cholesterol measurementOrdered By: Christie Aldana on 03-28-2024 Cholesterol in HDL [Mass/Vol] 40 mg/dL Normal 23-92 [facility] [facility] Comment on above: HDL CHOL ATP-III CLA SSIFICATION Cardiovascular RiskHDL > or equal to 60 mg/dL LOWHDL < 40 mg/dL HIGH Result Comment: HDL CHOL ATP-III CLASSIFICATION Cardiovascular Risk HDL > or equal to 60 mg/dL LOW HDL < 40 mg/dL HIGH Performed By: #### T SH3, T4F, CBC, CMP, B12, LIPID, [id number] #### [facility] [address] Serum or plasma total choles terol/high density lipoprotein (HDL) cholesterol mass ratOrdered By: Christie Aldana on 03-28-2024 Cholesterol.total/Choles terol in HDL [Mass ratio] 4.3 {ratio} Normal <5.0 [facility] Comment on above: Performed By: #### T SH3, T4F, CBC, CMP, B12, LIPID, [id number] #### [facility] [address] [place] [address] [place] Sodium [Moles/volume] in Ser um or PlasmaOrdered By: Christie Aldana on 03-28-2024 Sodium [Moles/Vol] 140 mmol/L Normal 136-145 [facility] Comment on above: Performed By: #### T SH3, T4F, CBC, CMP, B12, LIPID, [id number] #### [facility] [address] Thyrotropin [Units/volume] i n Serum or PlasmaOrdered By: Christie Aldana on 03-28-2024 TSH Qn 1.25 m[IU]/L Normal 0.45-5.33 [facility] Comment on above: Performed By: #### T SH3, T4F, CBC, CMP, B12, LIPID, [id number] #### [address] Thyroxine (T4) free [Mass/vo lume] in Serum or PlasmaOrdered By: Christie Aldana on 03-28-2024 Free T4 [Mass/Vol] 0.92 ng/dL Normal 0.61-1.12 [facility] Comment on above: Performed By: #### T SH3, T4F, CBC, CMP, B12, LIPID, [id number] #### [address] Triglyceride [Mass/volume] i n Serum or PlasmaOrdered By: Christie Aldana on 03-28-2024 Triglyceride [Mass/Vol] 63 mg/dL 0-149 [facility] Comment on above: TRIG ATP III CLASSIF ICATIONTRIG less than 150 mg/dL NormalTRIG 150-199 mg/dL Borderline highTRIG 200-500 mg/dL High TRIG greater than 500 mg/dL Very highStandard traceable to the Center for Disease Conrtrol and Prevention (CDC) test method. Urea nitrogen [Mass/volume] in Serum or PlasmaOrdered By: Christie Aldana on 03-28-2024 Urea nitrogen [Mass/Vol] 15 mg/dL Normal 7-25 [facility] Comment on above: Performed By: #### T SH3, T4F, CBC, CMP, B12, LIPID, [id number] #### [facility] [address] Vitamin B12 ser/plasOrdered By: Christie Aldana on 03-28-2024 Cobalamin (Vitamin B12) [Mass/Vol] 320 pg/mL Normal 180-914 [facility] Comment on above: Performed By: #### T SH3, T4F, CBC, CMP, B12, LIPID, [id number] #### [facility] [address] Vitamin D 25 Hydroxy Totalon 03-28-2024 Vitamin D 25 Hydroxy Total 28.7 ng/mL Low 30-100 [facility] Comment on above: Result Comment: HARITHA MIN D STATUS 25(OH)VITAMIN D RANGE (ng/mL) Deficient <20 Insufficient 20 to <30 Sufficient 30 to 100 Reference: Nish Moreno, Veda CANNON, et al. Evaluation,treatment, and prevention of vitamin D deficiency; an Endocrine Society clinical practice guideline. JCEM. 2010; 96(7):1911-30. PERFORMED BY: [place] [address] PATHOLOGIST NETBACKUP ENGINEER JUAN GALVEZ M.D. Performed By: #### T SH3, T4F, CBC, CMP, B12, LIPID, [id number] #### [facility] [address] [place] [address] Vitamin D+Metabolites [Mass/ volume] in Serum or PlasmaOrdered By: Christie Aldana on 03-28-2024 Vitamin D+Metabolites [Mass/Vol] 28.7 ng/mL Low 30-100 [facility] Comment on above: VITAMIN D STATUS 25( OH)VITAMIN D RANGE (ng/mL) Deficient <20 Insufficient 20 to <30Sufficient 30 to 100Reference: Nish Moreno, Veda CANNON, et al. Evaluation,treatment, and prevention of vitamin D deficiency; an Endocrine Society clinical practice guideline. JCEM. 2011 Bib; 96(7):1911-30. PAP [id number] 10-30-2023 C. trachomatis rRNA CHARLINE+probe Ql (Cvx) Negative Invalid Interpretation Code Negative [facility] Comment on above: Performed By: #### 3 [id number] #### [facility] [address] [place] [address] Cytology report Cyto stain Doc (Cvx/Vag) Note Invalid Interpretation Code [facility] Comment on above: Result Comment: TEST S RESULT FLAG UNITS REF RANGE LAB Clinician Provided Cytology Information Source.............[employer] Other..............Other No. of containers..01 ThinPrep Vial DIAGNOSIS: 01 NEGATIVE FOR INTRAEPITHELIAL LESION OR MALIGNANCY. Specimen adequacy: 01 Satisfactory for evaluation. Endocervical and/or squamous metaplastic cells (endocervical component) are present. Performed by: 01 Radha Benítez, Supervisory Truss Maker (ASCP) . 01 Note: Note 01 The [...] High,A-Abnormal,AA-Critical Abnormal Performed at: 01 WB [facility] [address] [place] [address] Sara Estes MD, Performed By: #### 3 [id number] #### [facility] [address] [id number] N. gonorrhoeae rRNA CHARLINE+probe Ql (Cvx) Negative Invalid Interpretation Code Negative [facility] Comment on above: Result Comment: Perf ormed at: WB [facility] [address] [id number] MD Meera Ruiz Performed at: =G [facility] [address] [id number] MD Meera Ruiz Performed By: #### 3 [id number] #### [facility] [address] [place] [address] PAP [id number] 10-25-2023 Collection Technique BRUSH-SPATULA Normal [facility] Comment on above: Performed By: #### 3 [id number] #### [facility] [address] [place] [address] Gynecological Body Site ENDOCERVIX Normal [facility] Comment on above: Performed By: #### 3 [id number] #### [facility] [address] [place] [address] Other Patient Information [id number] Normal [facility] Comment on above: Performed By: #### 3 [id number] #### [facility] [address] [place] [address] Previous Cytology Negative Normal [facility] Comment on above: Performed By: #### 3 [id number] #### [facility] [address] [place] [address] Previous Treatment NONE Normal [facility] Comment on above: Performed By: #### 3 [id number] #### [facility] [address] [place] [address] Physician Orderon 10-25-2023 Physician Order [id number]# 1.00TIFF Normal [facility] CNPDaphne 09-14-2023 CNPN Telephone (NE50MN) KWASI HEBERT ([id number]) 4 F Date Time Provider Department 09/14/23 ROBERT MARIN NE50MN During your visit today, we recorded the following information about you: Karen Melgar 09/14/2023 2:43 PM Signed General call : Full name of person calling: Kwasi Hebert Relationship to patient: Self Phone # : [phone] Reason for call: Dizzy, unable to get up in the morning. Birviact is not working. Possibly having focal seizures Patient of Amena Richardson 09/15/2023 9:00 AM Signed Please call back to discuss her medication. Patient believes she may have had focal seizures yesterday lasting about 1.5 minutes. She went to the emergency room care. She has a UTI. Patient can be reached at [phone]. Albin Major, CHERYL 09/15/2023 1:40 PM Signed Spoke with patient. [...] Encounter Status:Closed by ALBIN MAJOR on 09/15/23 Normal [facility] MRI BRAIN WO IVCONon 023 [facility] MRI BRAIN LOCALIZATION WO IV CONon 01-24-2023 [facility] CTA HEAD W IVCONon [facility] MRI BRAIN LOCALIZATION W IVC ONon 11-22-2022 [facility] MRI BRAIN WO IVCONon 023 [facility] Albumin [Mass/volume] in Ser um or PlasmaOrdered By: Shashi Ornelas on 10-02-2022 Albumin [Mass/Vol] 4.5 g/dL 3.2-5.5 [facility] Automated erythrocytes count in urine sediment (number/area)Ordered By: Shashi Ornelas on 10-02-2022 RBC Auto (Urine sed) [#/Area] Innumerable [HPF] 0-4 [facility] Automated leukocytes count i n urine sediment (number/area)Ordered By: Shashi Ornelas on 10-02-2022 WBC Auto (Urine sed) [#/Area] 5-9 [HPF] 0-4 [facility] Basophils Auto (Bld) [#/Vol] Ordered By: Shashi Ornelas on 10-02-2022 Basophils (Bld) [#/Vol] 0.1 10*3/uL 0.0-0.2 [facility] Basophils/100 WBC Auto (Bld) Ordered By: Shashi Ornelas on 10-02-2022 Basophils/100 WBC (Bld) 0.5 % . [facility] Bilirubin Test strip Ql (U)O rdered By: Shashi Ornelas on 10-02-2022 Bilirubin Ql (U) Negative Negative [facility] COVID CepheidOrdered By: Milton Ornelas on 10-02-2022 SARS-CoV-2 (COVID-19) Ab IA Ql Negative Negative [facility] Comment on above: This is a duplicate [employer] Xpert Xpress CoV-2/Flu/RSV Plus RNA by RT-PCR result to be used for statistical tracking purpose only. SARS-CoV-2 (COVID-19) RNA CHARLINE+probe Ql (Unsp spec) [facility] Color Auto (U)Ordered By: Bree Ornelas on 10-02-2022 Color (U) Yellow Yellow [facility] Creatinine and Glomerular fi ltration rate.predicted panel (S/P/Bld)Ordered By: Shashi Ornelas on 10-02-2022 Creatinine [Mass/Vol] 0.84 mg/dL 0.44-1.03 [facility] Eosinophils Auto (Bld) [#/Vo l]Ordered By: Shashi Ornelas on 10-02-2022 Eosinophils (Bld) [#/Vol] 0.1 10*3/uL 0.0-0.45 [facility] Eosinophils/100 WBC Auto (Bl d)Ordered By: Shashi Ornelas on 10-02-2022 Eosinophils/100 WBC (Bld) 0.7 % . [facility] Erythrocyte distribution wid th Auto (RBC) [Ratio]Ordered By: Shashi Ornelas on 10-02-2022 Erythrocyte distribution width (RBC) [Ratio] 13.7 % 11.9-15.3 [facility] Estimated glomerular filtrat ion rate (GFR) non- AmericanOrdered By: Shashi Ornelas on 10-02-2022 GFR/1.73 sq M.predicted among non-blacks MDRD (S/P/Bld) [Vol rate/Area] > 60 mL/Min [facility] Globulin Calc (S) [Mass/Vol] Ordered By: Shashi Ornelas on 10-02-2022 Globulin (S) [Mass/Vol] 2.8 g/dL [facility] HCG ( test) IA.rapi d Ql (U)Ordered By: Shashi Ornelas on 10-02-2022 HCG ( test) Ql (U) Negative [facility] Hematocrit Auto (Bld) [Volum e fraction]Ordered By: Shashi Ornelas on 10-02-2022 Hematocrit (Bld) [Volume fraction] 43.3 % 34.0-46.4 [facility] Hemoglobin [Mass/volume] in BloodOrdered By: Shashi Ornelas on 10-02-2022 Hemoglobin (Bld) [Mass/Vol] 14.4 g/dL 11.8-15.4 [facility] Ketones Auto test strip (U) [Mass/Vol]Ordered By: Shashi Ornelas on 10-02-2022 Ketones (U) [Mass/Vol] Trace Negative [facility] - Chemistry and C hemistry - challengeOrdered By: Shashi Ornelas on 10-02-2022 Lipase [Catalytic activity/Vol] 29.0 U/L 22-51 [facility] Magnesium [Mass/Vol] 1.9 mg/dL 1.6-2.6 [facility] - UrinalysisOrder ed By: Shashi Ornelas on 10-02-2022 Hyaline casts LM Ql (Urine sed) 0-8 [LPF] 0-8 [facility] Leukocytes [#/volume] correc deni for nucleated erythrocytes in Blood by Automated counOrdered By: Shashi Ornelas on 10-02-2022 WBC corrected for nucl RBC Auto (Bld) [#/Vol] 10.8 10*3/uL 3.8-11.6 [facility] Lymphocytes Auto (Bld) [#/Vo l]Ordered By: Shashi Ornelas on 10-02-2022 Lymphocytes (Bld) [#/Vol] 1.3 10*3/uL 1.00-4.8 [facility] Lymphocytes/100 WBC Auto (Bl d)Ordered By: Shashi Ornelas on 10-02-2022 Lymphocytes/100 WBC (Bld) 12.1 % . [facility] MCH Auto (RBC) [Entitic mass ]Ordered By: Shashi Ornelas on 10-02-2022 MCH (RBC) [Entitic mass] 29.8 pg 24.7-34.3 [facility] MCHC Auto (RBC) [Mass/Vol]Or dered By: Shashi Ornelas on 10-02-2022 MCHC (RBC) [Mass/Vol] 33.4 g/dL 32.0-35.0 [facility] MCV Auto (RBC) [Entitic vol] Ordered By: Shashi Ornelas on 10-02-2022 MCV (RBC) [Entitic vol] 89.3 fL 80-100 [facility] Monocyte distribution width [Entitic volume] in Blood by AutomatedOrdered By: Shashi Ornelas on 10-02-2022 Monocyte distribution width Auto (Bld) [Entitic vol] 18.87 % 0.00-20.00 [facility] Monocytes Auto (Bld) [#/Vol] Ordered By: Shashi Ornelas on 10-02-2022 Monocytes (Bld) [#/Vol] 0.6 10*3/uL 0.0-0.8 [facility] Monocytes/100 WBC Auto (Bld) Ordered By: Shashi Ornelas on 10-02-2022 Monocytes/100 WBC (Bld) 5.2 % . [facility] Neutrophils Auto (Bld) [#/Vo l]Ordered By: Shashi Ornelas on 10-02-2022 Neutrophils (Bld) [#/Vol] 8.8 10*3/uL 1.8-7.7 [facility] Neutrophils/100 WBC Auto (Bl d)Ordered By: Shashi Ornelas on 10-02-2022 Neutrophils/100 WBC (Bld) 81.5 % . [facility] Nitrite Test strip Ql (U)Ord ered By: Shashi Ornelas on 10-02-2022 Nitrite Ql (U) Negative Negative [facility] No Panel InformationOrdered By: Shashi Ornelas on 10-02-2022 Estimated GFR () > 60 mL/Min [facility] Comment on above: GFR estimated refere nce range: According to KDOQI guidelines, <60 ml/min/1.73m2 is sufficient to diagnose a patient with chronic kidney disease. Pharmacy Creatinine Clearance (Chem 81.29 [facility] Nucleated erythrocytes [Pres ence] in Blood by Automated countOrdered By: Shashi Ornelas on 10-02-2022 Nucleated RBC Auto Ql (Bld) 0.0 /100{WBC} 0-0.5 [facility] Phosphate [Mass/volume] in S nury or PlasmaOrdered By: Shashi Ornelas on 10-02-2022 Phosphate [Mass/Vol] 2.9 mg/dL 2.5-4.6 [facility] Platelet mean volume Auto (B ld) [Entitic vol]Ordered By: Shashi Ornelas on 10-02-2022 Platelet mean volume (Bld) [Entitic vol] 9.2 fL 6.3-10.7 [facility] Platelets Auto (Bld) [#/Vol] Ordered By: Shashi Ornelas on 10-02-2022 Platelets (Bld) [#/Vol] 211 10*3/uL 150-450 [facility] Prolactin [Mass/volume] in S nury or PlasmaOrdered By: Shashi Ornelas on 10-02-2022 Prolactin [Mass/Vol] 48.05 ng/mL 3.34-26.72 [facility] Protein Auto test strip (U) [Mass/Vol]Ordered By: Shashi Ornelas on 10-02-2022 Protein (U) [Mass/Vol] 30 mg/dL Negative [facility] Protein [Mass/volume] in Ser um or PlasmaOrdered By: Shashi Ornelas on 10-02-2022 Protein [Mass/Vol] 7.3 g/dL 6.1-7.9 [facility] RBC Auto (Bld) [#/Vol]Ordere d By: Shashi Ornelas on 10-02-2022 RBC (Bld) [#/Vol] 4.84 10*6/uL 3.60-5.00 [facility] Serum or plasma alanine greene otransferase measurement without P-5'-P (enzymatic activiOrdered By: Shashi Ornelas on 10-02-2022 ALT No additional P-5'-P [Catalytic activity/Vol] 16 U/L 10-60 [facility] Serum or plasma albumin/glob ulin mass ratioOrdered By: Shashi Ornelas on 10-02-2022 Albumin/Globulin [Mass ratio] 1.6 {ratio} [facility] Serum or plasma alkaline donna sphatase measurement (enzymatic activity/volume)Ordered By: Shashi Ornelas on 10-02-2022 ALP [Catalytic activity/Vol] 78 U/L 32-92 [facility] Serum or plasma anion gap de terminationOrdered By: Shashi Ornelas on 10-02-2022 Anion gap [Moles/Vol] 11.0 mmol/L 6.0-15.0 [facility] Serum or plasma aspartate am inotransferase measurement (enzymatic activity/volume)Ordered By: Shashi Ornelas on 10-02-2022 AST [Catalytic activity/Vol] 20 U/L 10-42 [facility] Serum or plasma calcium france urement (mass/volume)Ordered By: Shashi Ornelas on 10-02-2022 Calcium [Mass/Vol] 9.2 mg/dL 8.2-10.2 [facility] Serum or plasma chloride joanne surement (moles/volume)Ordered By: Shashi Ornelas on 10-02-2022 Chloride [Moles/Vol] 102 mmol/L 95-114 [facility] Serum or plasma glucose france urement (mass/volume)Ordered By: Shashi Ornelas on 10-02-2022 Glucose [Mass/Vol] 146 mg/dL 70-100 [facility] Comment on above: ADA recommended refe rence rangeRandom Glucose Reference Range is dependent on time and content of last meal. Glucose of more than 200 mg/dL in a nonstressed, ambulatory subject supports the diagnosis of Diabetes Mellitus. Serum or plasma potassium me asurement (moles/volume)Ordered By: Shashi Ornelas on 10-02-2022 Potassium [Moles/Vol] 3.7 mmol/L 3.5-5.1 [facility] Serum or plasma sodium measu rement (moles/volume)Ordered By: Shashi Ornelas on 10-02-2022 Sodium [Moles/Vol] 135 mmol/L 136-146 [facility] Serum or plasma total biliru bin measurement (mass/volume)Ordered By: Shashi Ornelas on 10-02-2022 Bilirubin [Mass/Vol] 0.3 mg/dL 0.3-1.2 [facility] Serum or plasma total carbon dioxide measurement (moles/volume)Ordered By: Shashi Ornelas on 10-02-2022 CO2 [Moles/Vol] 25.7 mmol/L 22.0-30.0 [facility] Serum or plasma urea nitroge n measurement (mass/volume)Ordered By: Shashi Ornelas on 10-02-2022 Urea nitrogen [Mass/Vol] 14 mg/dL 9-23 [facility] Specific gravity Auto test s trip (U) [Rel density]Ordered By: Shashi Ornelas on 10-02-2022 Specific gravity (U) [Rel density] 1.028 1.001-1.030 [facility] Squamous epithelial cells de tection in urine sediment by light microscopyOrdered By: Shashi Ornelas on 10-02-2022 Epithelial cells.squamous LM Ql (Urine sed) 3-4 [HPF] 0-2 [facility] Urine bacteria detection by automated methodOrdered By: Shashi Ornelas on 10-02-2022 Bacteria Auto Ql (U) None seen None Seen [facility] Urine clarity by refractomet ry automatedOrdered By: Shashi Ornelas on 10-02-2022 Clarity Refractometry automated (U) Clear Clear [facility] Urine glucose measurement by automated test strip (mass/volume)Ordered By: Shashi Ornelas on 10-02-2022 Glucose Auto test strip (U) [Mass/Vol] Normal mg/dL Normal [facility] Urine hemoglobin detection b y automated test stripOrdered By: Shashi Ornelas on 10-02-2022 Hemoglobin Auto test strip Ql (U) 3+ Negative [facility] Urine leukocyte esterase det ection by automated test stripOrdered By: Shashi Ornelas on 10-02-2022 Leukocyte esterase Auto test strip Ql (U) 2+ Negative [facility] Urobilinogen Auto test strip (U) [Mass/Vol]Ordered By: Shashi Ornelas on 10-02-2022 Urobilinogen (U) [Mass/Vol] Normal mg/dL Normal [facility] WBC Auto (Bld) [#/Vol]Ordere d By: Shashi Ornelas on 10-02-2022 WBC (Bld) [#/Vol] 10.8 10*3/uL 3.8-11.6 [facility] pH Auto test strip (U)Ordere d By: Shashi Ornelas on 10-02-2022 pH (U) 7.0 [pH] 5.0-9.0 [facility] EPIL ANA SPONTANEOUS BRAIN A CTIVTYon 09-16-2022 [facility] No Panel Informationon 09-08 [facility] Albumin [Mass/volume] in Ser um or PlasmaOrdered By: Madiha Funk on 08-25-2022 Albumin [Mass/Vol] 4.4 g/dL 3.2-5.5 [facility] Automated erythrocytes count in urine sediment (number/area)Ordered By: Madiha Funk on 08-25-2022 RBC Auto (Urine sed) [#/Area] 10-19 [HPF] 0-4 [facility] Automated leukocytes count i n urine sediment (number/area)Ordered By: Madiha Funk on 08-25-2022 WBC Auto (Urine sed) [#/Area] 20-49 [HPF] 0-4 [facility] Basophils Auto (Bld) [#/Vol] Ordered By: PROVIDER TEMP on 08-25-2022 Basophils (Bld) [#/Vol] 0.0 10*3/uL 0.0-0.2 [facility] Basophils/100 WBC Auto (Bld) Ordered By: PROVIDER TEMP on 08-25-2022 Basophils/100 WBC (Bld) 0.7 % . [facility] Bilirubin Test strip Ql (U)O rdered By: Madiha Funk on 08-25-2022 Bilirubin Ql (U) Negative Negative [facility] COVID-19 SOFIAOrdered By: Cody Funk on 08-25-2022 SARS-CoV+SARS-CoV-2 (COVID-19) Ag IA.rapid Ql (Resp) Negative Negative [facility] Comment on above: This is a duplicate Eduarda SARS Antigen (JUVENCIO) result to be used for statistical tracking purpose only. Color Auto (U)Ordered By: Cody Funk on 08-25-2022 Color (U) Yellow Yellow [facility] Creatinine and Glomerular fi ltration rate.predicted panel (S/P/Bld)Ordered By: Madiha Funk on 08-25-2022 Creatinine [Mass/Vol] 0.97 mg/dL 0.44-1.03 [facility] Eosinophils Auto (Bld) [#/Vo l]Ordered By: PROVIDER TEMP on 08-25-2022 Eosinophils (Bld) [#/Vol] 0.1 10*3/uL 0.0-0.45 [facility] Eosinophils/100 WBC Auto (Bl d)Ordered By: PROVIDER TEMP on 08-25-2022 Eosinophils/100 WBC (Bld) 1.9 % . [facility] Erythrocyte distribution wid th Auto (RBC) [Ratio]Ordered By: PROVIDER TEMP on 08-25-2022 Erythrocyte distribution width (RBC) [Ratio] 14.1 % 11.9-15.3 [facility] Estimated glomerular filtrat ion rate (GFR) non- AmericanOrdered By: Madiha Funk on 08-25-2022 GFR/1.73 sq M.predicted among non-blacks MDRD (S/P/Bld) [Vol rate/Area] > 60 mL/Min [facility] Globulin Calc (S) [Mass/Vol] Ordered By: Madiha Funk on 08-25-2022 Globulin (S) [Mass/Vol] 2.5 g/dL [facility] Glucose Glucometer (BldC) [M ass/Vol]Ordered By: JEAN MARIE GARCIA on 08-25-2022 Glucose [Mass/Vol] 83 mg/dL [facility] Comment on above: Random Glucose Refer ence Range is dependent on time and content of last meal. Glucose of more than 200 mg/dL in a nonstressed, ambulatory subject supports the diagnosis of Diabetes Mellitus. HCG ( test) IA.rapi d Ql (U)Ordered By: Madiha Funk on 08-25-2022 HCG ( test) Ql (U) Negative [facility] Hematocrit Auto (Bld) [Volum e fraction]Ordered By: JEAN MARIE GARCIA on 08-25-2022 Hematocrit (Bld) [Volume fraction] 42.3 % 34.0-46.4 [facility] Hemoglobin [Mass/volume] in BloodOrdered By: JEAN MARIE GARCIA on 08-25-2022 Hemoglobin (Bld) [Mass/Vol] 13.7 g/dL 11.8-15.4 [facility] Ketones Auto test strip (U) [Mass/Vol]Ordered By: Madiha Funk on 08-25-2022 Ketones (U) [Mass/Vol] Trace Negative [facility] - Chemistry and C hemistry - challengeOrdered By: Madiha Funk on 08-25-2022 Magnesium [Mass/Vol] 1.9 mg/dL 1.6-2.6 [facility] - UrinalysisOrder ed By: Madiha Funk on 08-25-2022 Hyaline casts LM Ql (Urine sed) 0-8 [LPF] 0-8 [facility] Leukocytes [#/volume] correc deni for nucleated erythrocytes in Blood by Automated counOrdered By: JEAN MARIE GARCIA on 01-12-2023 WBC corrected for nucl RBC Auto (Bld) [#/Vol] 6.5 10*3/uL 3.8-11.6 [facility] Lymphocytes Auto (Bld) [#/Vo l]Ordered By: PROVIDER TEMP on 08-25-2022 Lymphocytes (Bld) [#/Vol] 1.9 10*3/uL 1.00-4.8 [facility] Lymphocytes/100 WBC Auto (Bl d)Ordered By: PROVIDER TEMP on 08-25-2022 Lymphocytes/100 WBC (Bld) 28.7 % . [facility] MCH Auto (RBC) [Entitic mass ]Ordered By: PROVIDER TEMP on 08-25-2022 MCH (RBC) [Entitic mass] 29.4 pg 24.7-34.3 [facility] MCHC Auto (RBC) [Mass/Vol]Or dered By: PROVIDER TEMP on 08-25-2022 MCHC (RBC) [Mass/Vol] 32.4 g/dL 32.0-35.0 [facility] MCV Auto (RBC) [Entitic vol] Ordered By: PROVIDER TEMP on 08-25-2022 MCV (RBC) [Entitic vol] 90.6 fL 80-100 [facility] Monocyte distribution width [Entitic volume] in Blood by AutomatedOrdered By: PROVIDER TEMP on 08-25-2022 Monocyte distribution width Auto (Bld) [Entitic vol] 15.89 % 0.00-20.00 [facility] Monocytes Auto (Bld) [#/Vol] Ordered By: PROVIDER TEMP on 08-25-2022 Monocytes (Bld) [#/Vol] 0.5 10*3/uL 0.0-0.8 [facility] Monocytes/100 WBC Auto (Bld) Ordered By: PROVIDER TEMP on 08-25-2022 Monocytes/100 WBC (Bld) 7.3 % . [facility] Neutrophils Auto (Bld) [#/Vo l]Ordered By: PROVIDER TEMP on 08-25-2022 Neutrophils (Bld) [#/Vol] 4.0 10*3/uL 1.8-7.7 [facility] Neutrophils/100 WBC Auto (Bl d)Ordered By: PROVIDER TEMP on 08-25-2022 Neutrophils/100 WBC (Bld) 61.4 % . [facility] Nitrite Test strip Ql (U)Ord ered By: Madiha Funk on 08-25-2022 Nitrite Ql (U) Negative Negative [facility] No Panel InformationOrdered By: Madiha Funk on 08-25-2022 SARS Antigen (LFIA) [facility] Estimated GFR () > 60 mL/Min [facility] Comment on above: GFR estimated refere nce range: According to KDOQI guidelines, <60 ml/min/1.73m2 is sufficient to diagnose a patient with chronic kidney disease. Lamotrigine (Lamictal) Level 6.1 ug/mL 2.0-20.0 [facility] Comment on above: Detection Limit = 1. 0Performed at: [facility] [id number] Director: Brent Alves MD, Phone: [phone] Pharmacy Creatinine Clearance (Chem 74.37 [facility] Nucleated erythrocytes [Pres ence] in Blood by Automated countOrdered By: PROVIDER TEMP on 08-25-2022 Nucleated RBC Auto Ql (Bld) 0.1 /100{WBC} 0-0.5 [facility] Platelet mean volume Auto (B ld) [Entitic vol]Ordered By: PROVIDER TEMP on 08-25-2022 Platelet mean volume (Bld) [Entitic vol] 9.0 fL 6.3-10.7 [facility] Platelets Auto (Bld) [#/Vol] Ordered By: PROVIDER TEMP on 08-25-2022 Platelets (Bld) [#/Vol] 202 10*3/uL 150-450 [facility] Prolactin [Mass/volume] in S nury or PlasmaOrdered By: Madiha Funk on 08-25-2022 Prolactin [Mass/Vol] 14.22 ng/mL 3.34-26.72 [facility] Protein Auto test strip (U) [Mass/Vol]Ordered By: Madiha Funk on 08-25-2022 Protein (U) [Mass/Vol] Negative Negative [facility] Protein [Mass/volume] in Ser um or PlasmaOrdered By: Madiha Funk on 08-25-2022 Protein [Mass/Vol] 6.9 g/dL 6.1-7.9 [facility] RBC Auto (Bld) [#/Vol]Ordere d By: JEAN MARIE WALDENP on 08-25-2022 RBC (Bld) [#/Vol] 4.67 10*6/uL 3.60-5.00 [facility] Serum or plasma alanine greene otransferase measurement without P-5'-P (enzymatic activiOrdered By: Madiha Funk on 08-25-2022 ALT No additional P-5'-P [Catalytic activity/Vol] 17 U/L 10-60 [facility] Serum or plasma albumin/glob ulin mass ratioOrdered By: Madiha Funk on 08-25-2022 Albumin/Globulin [Mass ratio] 1.8 {ratio} [facility] Serum or plasma alkaline donna sphatase measurement (enzymatic activity/volume)Ordered By: Madiha Funk on 08-25-2022 ALP [Catalytic activity/Vol] 61 U/L 32-92 [facility] Serum or plasma anion gap de terminationOrdered By: Madiha Funk on 08-25-2022 Anion gap [Moles/Vol] 12.1 mmol/L 6.0-15.0 [facility] Serum or plasma aspartate am inotransferase measurement (enzymatic activity/volume)Ordered By: Madiha Funk on 08-25-2022 AST [Catalytic activity/Vol] 19 U/L 10-42 [facility] Serum or plasma calcium france urement (mass/volume)Ordered By: Madiha Funk on 08-25-2022 Calcium [Mass/Vol] 9.6 mg/dL 8.2-10.2 [facility] Serum or plasma chloride joanne surement (moles/volume)Ordered By: aMdiha Funk on 08-25-2022 Chloride [Moles/Vol] 101 mmol/L 95-114 [facility] Serum or plasma glucose france urement (mass/volume)Ordered By: Madiha Funk on 08-25-2022 Glucose [Mass/Vol] 88 mg/dL 70-100 [facility] Comment on above: ADA recommended refe rence rangeRandom Glucose Reference Range is dependent on time and content of last meal. Glucose of more than 200 mg/dL in a nonstressed, ambulatory subject supports the diagnosis of Diabetes Mellitus. Serum or plasma potassium me asurement (moles/volume)Ordered By: Madiha Funk on 08-25-2022 Potassium [Moles/Vol] 4.1 mmol/L 3.5-5.1 [facility] Serum or plasma sodium measu rement (moles/volume)Ordered By: Madiha Funk on 08-25-2022 Sodium [Moles/Vol] 133 mmol/L 136-146 [facility] Serum or plasma total biliru bin measurement (mass/volume)Ordered By: Madiha Funk on 08-25-2022 Bilirubin [Mass/Vol] 0.7 mg/dL 0.3-1.2 [facility] Serum or plasma total carbon dioxide measurement (moles/volume)Ordered By: Madiha Funk on 08-25-2022 CO2 [Moles/Vol] 24.0 mmol/L 22.0-30.0 [facility] Serum or plasma urea nitroge n measurement (mass/volume)Ordered By: Madiha Funk on 08-25-2022 Urea nitrogen [Mass/Vol] 13 mg/dL 9-23 [facility] Specific gravity Auto test s trip (U) [Rel density]Ordered By: Madiah Funk on 08-25-2022 Specific gravity (U) [Rel density] 1.029 1.001-1.030 [facility] Squamous epithelial cells de tection in urine sediment by light microscopyOrdered By: Madiha Funk on 08-25-2022 Epithelial cells.squamous LM Ql (Urine sed) 1-2 [HPF] 0-2 [facility] Urine bacteria detection by automated methodOrdered By: Madiha Funk on 08-25-2022 Bacteria Auto Ql (U) None seen None Seen [facility] Urine clarity by refractomet ry automatedOrdered By: Madiha Funk on 08-25-2022 Clarity Refractometry automated (U) Clear Clear [facility] Urine culture routineOrdered By: Madiha Funk on 08-25-2022 Bacteria identified Cx Nom (U) Enterococcus faecalis [facility] Urine glucose measurement by automated test strip (mass/volume)Ordered By: Madiha Funk on 08-25-2022 Glucose Auto test strip (U) [Mass/Vol] Normal mg/dL Normal [facility] Urine hemoglobin detection b y automated test stripOrdered By: Madiha Fnuk on 08-25-2022 Hemoglobin Auto test strip Ql (U) Negative Negative [facility] Urine lactic acid measuremen tOrdered By: Leif Funk on 08-25-2022 Lactate (U) [Moles/Vol] 0.8 mmol/L 0.5-2.2 [facility] Urine leukocyte esterase det ection by automated test stripOrdered By: Madiha Funk on 08-25-2022 Leukocyte esterase Auto test strip Ql (U) 2+ Negative [facility] Urobilinogen Auto test strip (U) [Mass/Vol]Ordered By: Madiha Funk on 08-25-2022 Urobilinogen (U) [Mass/Vol] Normal mg/dL Normal [facility] WBC Auto (Bld) [#/Vol]Ordere d By: JEAN MARIE GARCIA on 08-25-2022 WBC (Bld) [#/Vol] 6.5 10*3/uL 3.8-11.6 [facility] pH Auto test strip (U)Ordere d By: Madiha Funk on 08-25-2022 pH (U) 5.5 [pH] 5.0-9.0 [facility] Automated erythrocytes count in urine sediment (number/area)Ordered By: Sedrick Pina on 07-14-2022 RBC Auto (Urine sed) [#/Area] None seen [HPF] 0-4 [facility] Automated leukocytes count i n urine sediment (number/area)Ordered By: Sedrick Pina on 07-14-2022 WBC Auto (Urine sed) [#/Area] 5-9 [HPF] 0-4 [facility] Basophils Auto (Bld) [#/Vol] Ordered By: Sedrick Pina on 07-14-2022 Basophils (Bld) [#/Vol] 0.1 10*3/uL 0.0-0.2 [facility] Basophils/100 WBC Auto (Bld) Ordered By: Sedrick Pina on 07-14-2022 Basophils/100 WBC (Bld) 0.8 % . [facility] Bilirubin Test strip Ql (U)O rdered By: Sedrick Pina on 07-14-2022 Bilirubin Ql (U) Negative Negative [facility] Body fluid albumin measureme nt (mass/volume)Ordered By: Sedrick Pina on 07-14-2022 Albumin (Body fld) [Mass/Vol] 4.1 g/dL 3.2-5.5 [facility] Color Auto (U)Ordered By: Sahil Pina on 07-14-2022 Color (U) Yellow Yellow [facility] Creatinine and Glomerular fi ltration rate.predicted panel (S/P/Bld)Ordered By: Sedrick Pina on 07-14-2022 Creatinine [Mass/Vol] 0.89 mg/dL 0.44-1.03 [facility] Eosinophils Auto (Bld) [#/Vo l]Ordered By: Sedrick Pina on 07-14-2022 Eosinophils (Bld) [#/Vol] 0.1 10*3/uL 0.0-0.45 [facility] Eosinophils/100 WBC Auto (Bl d)Ordered By: Sedrick Pina on 07-14-2022 Eosinophils/100 WBC (Bld) 1.7 % . [facility] Erythrocyte distribution wid th Auto (RBC) [Ratio]Ordered By: Sedrick Pina on 07-14-2022 Erythrocyte distribution width (RBC) [Ratio] 13.8 % 11.9-15.3 [facility] Estimated glomerular filtrat ion rate (GFR) non- AmericanOrdered By: Sedrick Pina on 07-14-2022 GFR/1.73 sq M.predicted among non-blacks MDRD (S/P/Bld) [Vol rate/Area] > 60 mL/Min [facility] Globulin Calc (S) [Mass/Vol] Ordered By: Sedrick Pina on 07-14-2022 Globulin (S) [Mass/Vol] 2.7 g/dL [facility] HCG ( test) IA.rapi d Ql (U)Ordered By: JEAN MARIE GARCIA on 07-14-2022 HCG ( test) Ql (U) Negative [facility] Hematocrit Auto (Bld) [Volum e fraction]Ordered By: Sedrick Pina on 07-14-2022 Hematocrit (Bld) [Volume fraction] 41.1 % 34.0-46.4 [facility] Hemoglobin [Mass/volume] in BloodOrdered By: Sedrick Pina on 07-14-2022 Hemoglobin (Bld) [Mass/Vol] 13.5 g/dL 11.8-15.4 [facility] Ketones Auto test strip (U) [Mass/Vol]Ordered By: Sedrick Pina on 07-14-2022 Ketones (U) [Mass/Vol] Trace Negative [facility] Laboratory - Chemistry and C hemistry - challengeOrdered By: Sedrick Pina on 07-14-2022 Lipase [Catalytic activity/Vol] 32.0 U/L 22-51 [facility] - UrinalysisOrder ed By: Sedrick Pina on 07-14-2022 Hyaline casts LM Ql (Urine sed) 0-8 [LPF] 0-8 [facility] Leukocytes [#/volume] correc deni for nucleated erythrocytes in Blood by Automated counOrdered By: Sedrick Pina on 07-14-2022 WBC corrected for nucl RBC Auto (Bld) [#/Vol] 7.7 10*3/uL 3.8-11.6 [facility] Lymphocytes Auto (Bld) [#/Vo l]Ordered By: Sedrick Pina on 07-14-2022 Lymphocytes (Bld) [#/Vol] 2.3 10*3/uL 1.00-4.8 [facility] Lymphocytes/100 WBC Auto (Bl d)Ordered By: Sedrick Pina on 07-14-2022 Lymphocytes/100 WBC (Bld) 30.0 % . [facility] MCH Auto (RBC) [Entitic mass ]Ordered By: Sedrick Pina on 07-14-2022 MCH (RBC) [Entitic mass] 29.2 pg 24.7-34.3 [facility] MCHC Auto (RBC) [Mass/Vol]Or dered By: Sedrick Pina on 07-14-2022 MCHC (RBC) [Mass/Vol] 32.9 g/dL 32.0-35.0 [facility] MCV Auto (RBC) [Entitic vol] Ordered By: Sedrick Pina on 07-14-2022 MCV (RBC) [Entitic vol] 88.8 fL 80-100 [facility] Monocytes Auto (Bld) [#/Vol] Ordered By: Sedrick Pina on 07-14-2022 Monocytes (Bld) [#/Vol] 0.6 10*3/uL 0.0-0.8 [facility] Monocytes/100 WBC Auto (Bld) Ordered By: Sedrick Pina on 07-14-2022 Monocytes/100 WBC (Bld) 7.5 % . [facility] Mucus LM Ql (Urine sed)Order ed By: Sedrick Pina on 07-14-2022 Mucus Ql (Urine sed) 4+ [LPF] [facility] Neutrophils Auto (Bld) [#/Vo l]Ordered By: Sedrick Pina on 07-14-2022 Neutrophils (Bld) [#/Vol] 4.6 10*3/uL 1.8-7.7 [facility] Neutrophils/100 WBC Auto (Bl d)Ordered By: Sedrick Pina on 07-14-2022 Neutrophils/100 WBC (Bld) 60.0 % . [facility] Nitrite Test strip Ql (U)Ord ered By: Sedrick Pina on 07-14-2022 Nitrite Ql (U) Negative Negative [facility] No Panel InformationOrdered By: Sedrick Pina on 07-14-2022 Estimated GFR () > 60 mL/Min [facility] Comment on above: GFR estimated refere nce range: According to KDOQI guidelines, <60 ml/min/1.73m2 is sufficient to diagnose a patient with chronic kidney disease. Pharmacy Creatinine Clearance (Chem 8.03 [facility] Nucleated erythrocytes [Pres ence] in Blood by Automated countOrdered By: Sedrick Pina on 07-14-2022 Nucleated RBC Auto Ql (Bld) 0.2 /100{WBC} 0-0.5 [facility] Platelet mean volume Auto (B ld) [Entitic vol]Ordered By: Sedrick Pina on 07-14-2022 Platelet mean volume (Bld) [Entitic vol] 8.8 fL 6.3-10.7 [facility] Platelets Auto (Bld) [#/Vol] Ordered By: Sedrick Pina on 07-14-2022 Platelets (Bld) [#/Vol] 218 10*3/uL 150-450 [facility] Protein Auto test strip (U) [Mass/Vol]Ordered By: Sedrick Pina on 07-14-2022 Protein (U) [Mass/Vol] Negative Negative [facility] Protein [Mass/volume] in Ser um or PlasmaOrdered By: Sedrick Pina on 07-14-2022 Protein [Mass/Vol] 6.8 g/dL 6.1-7.9 [facility] RBC Auto (Bld) [#/Vol]Ordere d By: Sedrick Pina on 07-14-2022 RBC (Bld) [#/Vol] 4.63 10*6/uL 3.60-5.00 [facility] Serum or plasma alanine greene otransferase measurement without P-5'-P (enzymatic activiOrdered By: Sedrick Pina on 07-14-2022 ALT No additional P-5'-P [Catalytic activity/Vol] 22 U/L 10-60 [facility] Serum or plasma albumin/glob ulin mass ratioOrdered By: Sedrick Pina on 07-14-2022 Albumin/Globulin [Mass ratio] 1.5 {ratio} [facility] Serum or plasma alkaline donna sphatase measurement (enzymatic activity/volume)Ordered By: Sedrick Pina on 07-14-2022 ALP [Catalytic activity/Vol] 67 U/L 32-92 [facility] Serum or plasma anion gap de terminationOrdered By: Sedrick Pina on 07-14-2022 Anion gap [Moles/Vol] 12.0 mmol/L 6.0-15.0 [facility] Serum or plasma aspartate am inotransferase measurement (enzymatic activity/volume)Ordered By: Sedrick Pina on 07-14-2022 AST [Catalytic activity/Vol] 21 U/L 10-42 [facility] Serum or plasma calcium france urement (mass/volume)Ordered By: Sedrick Pina on 07-14-2022 Calcium [Mass/Vol] 9.5 mg/dL 8.2-10.2 [facility] Serum or plasma chloride joanne surement (moles/volume)Ordered By: Sedrick Pina on 07-14-2022 Chloride [Moles/Vol] 99 mmol/L 95-114 [facility] Serum or plasma glucose france urement (mass/volume)Ordered By: Sedrick Pina on 07-14-2022 Glucose [Mass/Vol] 96 mg/dL 70-100 [facility] Comment on above: ADA recommended refe rence rangeRandom Glucose Reference Range is dependent on time and content of last meal. Glucose of more than 200 mg/dL in a nonstressed, ambulatory subject supports the diagnosis of Diabetes Mellitus. Serum or plasma potassium me asurement (moles/volume)Ordered By: Sedrick Pina on 07-14-2022 Potassium [Moles/Vol] 3.5 mmol/L 3.5-5.1 [facility] Serum or plasma sodium measu rement (moles/volume)Ordered By: Sedrick Pina on 07-14-2022 Sodium [Moles/Vol] 136 mmol/L 136-146 [facility] Serum or plasma total biliru bin measurement (mass/volume)Ordered By: Sedrick Pina on 07-14-2022 Bilirubin [Mass/Vol] 0.4 mg/dL 0.3-1.2 [facility] Serum or plasma total carbon dioxide measurement (moles/volume)Ordered By: Sedrick Pina on 07-14-2022 CO2 [Moles/Vol] 28.5 mmol/L 22.0-30.0 [facility] Serum or plasma urea nitroge n measurement (mass/volume)Ordered By: Sedrick Pina on 07-14-2022 Urea nitrogen [Mass/Vol] 12 mg/dL 9-23 [facility] Specific gravity Auto test s trip (U) [Rel density]Ordered By: Sedrick Pina on 07-14-2022 Specific gravity (U) [Rel density] 1.027 1.001-1.030 [facility] Squamous epithelial cells de tection in urine sediment by light microscopyOrdered By: Sedrick Pina on 07-14-2022 Epithelial cells.squamous LM Ql (Urine sed) 5-9 [HPF] 0-2 [facility] Urine bacteria detection by automated methodOrdered By: Sedrick Pina on 07-14-2022 Bacteria Auto Ql (U) 1+ None Seen [facility] Urine clarity by refractomet ry automatedOrdered By: Sedrick Pina on 07-14-2022 Clarity Refractometry automated (U) Clear Clear [facility] Urine culture routineOrdered By: Sedrick Pina on 07-14-2022 Bacteria identified Cx Nom (U) 2 Days [facility] Urine glucose measurement by automated test strip (mass/volume)Ordered By: Sedrick Pina on 07-14-2022 Glucose Auto test strip (U) [Mass/Vol] Normal mg/dL Normal [facility] Urine hemoglobin detection b y automated test stripOrdered By: Sedrick Pina on 07-14-2022 Hemoglobin Auto test strip Ql (U) Trace Negative [facility] Urine leukocyte esterase det ection by automated test stripOrdered By: Sedrick Pina on 07-14-2022 Leukocyte esterase Auto test strip Ql (U) 1+ Negative [facility] Urine sediment renal epithel ial cell count by microscopy (number/high power field)Ordered By: Sedrick Pina on 07-14-2022 Epithelial cells.renal LM.HPF (Urine sed) [#/Area] None seen [HPF] 0-1 [facility] Urobilinogen Auto test strip (U) [Mass/Vol]Ordered By: Sedrick Pina on 07-14-2022 Urobilinogen (U) [Mass/Vol] Normal mg/dL Normal [facility] WBC Auto (Bld) [#/Vol]Ordere d By: Sedrick Pina on 07-14-2022 WBC (Bld) [#/Vol] 7.7 10*3/uL 3.8-11.6 [facility] pH Auto test strip (U)Ordere d By: Sedrick Pina on 07-14-2022 pH (U) 6.0 [pH] 5.0-9.0 [facility] Amphetamine Screen Ql (U)Ord ered By: Bill Keith on 04-05-2022 Amphetamines Ql (U) Negative Negative [facility] Automated epithelial cells c ount in urine sediment (number/area)Ordered By: Bill Keith on 04-05-2022 Epithelial cells Auto (Urine sed) [#/Area] None seen [HPF] 0-2 [facility] Automated erythrocytes count in urine sediment (number/area)Ordered By: Bill Keith on 04-05-2022 RBC Auto (Urine sed) [#/Area] None seen [HPF] 0-4 [facility] Automated leukocytes count i n urine sediment (number/area)Ordered By: Bill Keith on 04-05-2022 WBC Auto (Urine sed) [#/Area] None seen [HPF] 0-4 [facility] Automated urine hyaline cast s count (number/volume)Ordered By: Bill Keith on 04-05-2022 Hyaline casts Auto (U) [#/Vol] None seen [LPF] 0-1 [facility] Barbiturates [Presence] in U rineOrdered By: Bill Keith on 04-05-2022 Barbiturates Ql (U) Negative Negative [facility] Benzodiazepines [Presence] i n UrineOrdered By: Bill Keith on 04-05-2022 Benzodiazepines Ql (U) Negative Negative [facility] Bilirubin Test strip Ql (U)O rdered By: Bill Keith on 04-05-2022 Bilirubin Ql (U) Negative Negative [facility] Cannabinoids [Presence] in U rine by Screen methodOrdered By: Bill Keith on 04-05-2022 Cannabinoids Screen Ql (U) Positive Negative [facility] Comment on above: These are unconfirme d results and should not be used for legal purposes. Drug Cut-Off Concentration: AMPH 1000 ng/mL CHARISSE 200 ng/mL JANIE 200 ng/mL COCM 300 ng/mL OP 300 ng/mL PCP 25 ng/mL THC 20 ng/mL Color Auto (U)Ordered By: Praneeth Keith on 04-05-2022 Color (U) Yellow Yellow [facility] HCG ( test) IA.rapi d Ql (U)Ordered By: Bill Keith on 04-05-2022 HCG ( test) Ql (U) Negative [facility] Ketones Auto test strip (U) [Mass/Vol]Ordered By: Bill Keith on 04-05-2022 Ketones (U) [Mass/Vol] Negative Negative [facility] Laboratory - Drug toxicology Ordered By: Bill Keith on 04-05-2022 Opiates Ql (U) Negative Negative [facility] Nitrite Test strip Ql (U)Ord ered By: Bill Keith on 04-05-2022 Nitrite Ql (U) Negative Negative [facility] Phencyclidine Screen Ql (U)O rdered By: Bill Keith on 04-05-2022 Phencyclidine Ql (U) Negative Negative [facility] Protein Auto test strip (U) [Mass/Vol]Ordered By: Bill Keith on 04-05-2022 Protein (U) [Mass/Vol] Negative Negative [facility] Specific gravity Auto test s trip (U) [Rel density]Ordered By: Bill Keith on 04-05-2022 Specific gravity (U) [Rel density] 1.004 1.001-1.030 [facility] Urine bacteria detection by automated methodOrdered By: Bill Keith on 04-05-2022 Bacteria Auto Ql (U) None seen None Seen [facility] Urine clarity by refractomet ry automatedOrdered By: Bill Keith on 04-05-2022 Clarity Refractometry automated (U) Clear Clear [facility] Urine cocaine detectionOrder ed By: Bill Keith on 04-05-2022 Cocaine Ql (U) Negative Negative [facility] Urine glucose measurement by automated test strip (mass/volume)Ordered By: Bill Keith on 04-05-2022 Glucose Auto test strip (U) [Mass/Vol] Normal mg/dL Normal [facility] Urine hemoglobin detection b y automated test stripOrdered By: Bill Keith on 04-05-2022 Hemoglobin Auto test strip Ql (U) Trace Negative [facility] Urine leukocyte esterase det ection by automated test stripOrdered By: Bill Keith on 04-05-2022 Leukocyte esterase Auto test strip Ql (U) Negative Negative [facility] Urobilinogen Auto test strip (U) [Mass/Vol]Ordered By: Bill Keith on 04-05-2022 Urobilinogen (U) [Mass/Vol] Normal mg/dL Normal [facility] pH Auto test strip (U)Ordere d By: Bill Keith on 04-05-2022 pH (U) 8.0 [pH] 5.0-9.0 [facility] Activated partial thrombopla stin time (aPTT) in platelet poor plasma by coagulation aOrdered By: Feng Barlow on 03-14-2022 aPTT Coag (PPP) [Time] 31.7 s 25.1-36.5 [facility] Albumin [Mass/volume] in Ser um or PlasmaOrdered By: Feng Barlow on 03-14-2022 Albumin [Mass/Vol] 4.5 g/dL 3.2-5.5 [facility] Basophils Auto (Bld) [#/Vol] Ordered By: Feng Barlow on 03-14-2022 Basophils (Bld) [#/Vol] 0.1 10*3/uL 0.0-0.2 [facility] Basophils/100 WBC Auto (Bld) Ordered By: Feng Barlow on 03-14-2022 Basophils/100 WBC (Bld) 1.0 % . [facility] Blood hemoglobin measurement (mass/volume)Ordered By: Feng Barlow on 03-14-2022 Hemoglobin (Bld) [Mass/Vol] 14.1 g/dL 11.8-15.4 [facility] Blood leukocytes automated c ount (number/volume)Ordered By: Feng Barlow on 03-14-2022 WBC (Bld) [#/Vol] 6.0 10*3/uL 4.5-11.0 [facility] Creatine kinase [Enzymatic a ctivity/volume] in Serum or PlasmaOrdered By: Feng Barlow on 03-14-2022 CK [Catalytic activity/Vol] 81 U/L 22-269 [facility] Creatinine and Glomerular fi ltration rate.predicted panel (S/P/Bld)Ordered By: Feng Barlow on 03-14-2022 Creatinine [Mass/Vol] 1.04 mg/dL 0.44-1.03 [facility] Eosinophils Auto (Bld) [#/Vo l]Ordered By: Feng Barlow on 03-14-2022 Eosinophils (Bld) [#/Vol] 0.0 10*3/uL 0.0-0.45 [facility] Eosinophils/100 WBC Auto (Bl d)Ordered By: Feng Barlow on 03-14-2022 Eosinophils/100 WBC (Bld) 0.8 % . [facility] Erythrocyte distribution wid th Auto (RBC) [Ratio]Ordered By: Feng Barlow on 03-14-2022 Erythrocyte distribution width (RBC) [Ratio] 13.8 % 11.9-15.3 [facility] Estimated glomerular filtrat ion rate (GFR) non- AmericanOrdered By: Feng Barlow on 03-14-2022 GFR/1.73 sq M.predicted among non-blacks MDRD (S/P/Bld) [Vol rate/Area] > 60 mL/Min [facility] Globulin Calc (S) [Mass/Vol] Ordered By: Feng Barlow on 03-14-2022 Globulin (S) [Mass/Vol] 2.6 g/dL [facility] Hematocrit Auto (Bld) [Volum e fraction]Ordered By: Feng Barlow on 03-14-2022 Hematocrit (Bld) [Volume fraction] 43.0 % 34.0-46.4 [facility] - Chemistry and C hemistry - challengeOrdered By: Feng Barlow on 03-14-2022 Magnesium [Mass/Vol] 1.9 mg/dL 1.6-2.6 [facility] - CoagulationOrde red By: Feng Barlow on 03-14-2022 PT Coag (PPP) [Time] 13.7 s 9.0-12.9 [facility] - Hematology and Cell countsOrdered By: Feng Barlow on 03-14-2022 Nucleated RBC/100 WBC (Bld) [Ratio] 0.1 % 0-0.5 [facility] Lymphocytes Auto (Bld) [#/Vo l]Ordered By: Feng Barlow on 03-14-2022 Lymphocytes (Bld) [#/Vol] 1.9 10*3/uL 1.00-4.8 [facility] Lymphocytes/100 WBC Auto (Bl d)Ordered By: Feng Barlow on 03-14-2022 Lymphocytes/100 WBC (Bld) 31.0 % . [facility] MCH Auto (RBC) [Entitic mass ]Ordered By: Feng Barlow on 03-14-2022 MCH (RBC) [Entitic mass] 29.2 pg 24.7-34.3 [facility] MCHC Auto (RBC) [Mass/Vol]Or dered By: Feng Barlow on 03-14-2022 MCHC (RBC) [Mass/Vol] 32.7 g/dL 32.0-35.0 [facility] MCV Auto (RBC) [Entitic vol] Ordered By: Feng Barlow on 03-14-2022 MCV (RBC) [Entitic vol] 89.2 fL 80-100 [facility] Monocytes Auto (Bld) [#/Vol] Ordered By: Feng Barlow on 03-14-2022 Monocytes (Bld) [#/Vol] 0.4 10*3/uL 0.0-0.8 [facility] Monocytes/100 WBC Auto (Bld) Ordered By: Feng Barlow on 03-14-2022 Monocytes/100 WBC (Bld) 7.1 % . [facility] Neutrophils Auto (Bld) [#/Vo l]Ordered By: Feng Barlow on 03-14-2022 Neutrophils (Bld) [#/Vol] 3.6 10*3/uL 1.8-7.7 [facility] Neutrophils/100 WBC Auto (Bl d)Ordered By: Feng Barlow on 03-14-2022 Neutrophils/100 WBC (Bld) 60.1 % . [facility] No Panel InformationOrdered By: Feng Barlow on 03-14-2022 Estimated GFR () > 60 mL/Min [facility] Comment on above: GFR estimated refere nce range: According to KDOQI guidelines, <60 ml/min/1.73m2 is sufficient to diagnose a patient with chronic kidney disease. Pharmacy Creatinine Clearance (Chem 69.36 [facility] Platelet mean volume Auto (B ld) [Entitic vol]Ordered By: Feng Barlow on 03-14-2022 Platelet mean volume (Bld) [Entitic vol] 9.1 fL 6.3-10.7 [facility] Platelet poor plasma interna tional normalized ratio (INR) by coagulation assay (relatOrdered By: Feng Barlow on 03-14-2022 INR Coag (PPP) [Relative time] 1.2 {INR} [facility] Comment on above: INR Therapeutic Rang [...] 03-14-2022 Platelets (Bld) [#/Vol] 221 10*3/uL 150-450 [facility] Protein [Mass/volume] in Ser um or PlasmaOrdered By: Feng Barlow on 03-14-2022 Protein [Mass/Vol] 7.1 g/dL 6.1-7.9 [facility] RBC Auto (Bld) [#/Vol]Ordere d By: Feng Barlow on 03-14-2022 RBC (Bld) [#/Vol] 4.82 10*6/uL 3.60-5.00 [facility] Serum or plasma alanine greene otransferase measurement without P-5'-P (enzymatic activiOrdered By: Feng Barlow on 03-14-2022 ALT No additional P-5'-P [Catalytic activity/Vol] 14 U/L 10-60 [facility] Serum or plasma albumin/glob ulin mass ratioOrdered By: Feng Barlow on 03-14-2022 Albumin/Globulin [Mass ratio] 1.7 {ratio} [facility] Serum or plasma alkaline donna sphatase measurement (enzymatic activity/volume)Ordered By: Feng Barlow on 03-14-2022 ALP [Catalytic activity/Vol] 65 U/L 32-92 [facility] Serum or plasma aspartate am inotransferase measurement (enzymatic activity/volume)Ordered By: Feng Barlow on 03-14-2022 AST [Catalytic activity/Vol] 18 U/L 10-42 [facility] Serum or plasma calcium france urement (mass/volume)Ordered By: Feng Barlow on 03-14-2022 Calcium [Mass/Vol] 9.7 mg/dL 8.2-10.2 [facility] Serum or plasma chloride joanne surement (moles/volume)Ordered By: Feng Barlow on 03-14-2022 Chloride [Moles/Vol] 102 mmol/L 95-114 [facility] Serum or plasma creatine kin ase MB (CKMB)/total creatine kinase (CK) ratio by calculaOrdered By: Feng Barlow on 03-14-2022 CK.MB Calc [Catalytic fraction] 1.3 % 0.00-2.50 [facility] Serum or plasma creatine kin ase MB measurement (mass/volume)Ordered By: Feng Barlow on 03-14-2022 CK.MB [Mass/Vol] 1.1 ng/mL 0.6-6.3 [facility] Serum or plasma glucose france urement (mass/volume)Ordered By: Feng Barlow on 03-14-2022 Glucose [Mass/Vol] 118 mg/dL 70-100 [facility] Comment on above: ADA recommended refe rence range Random Glucose Reference Range is dependent on time and content of last meal. Glucose of more than 200 mg/dL in a nonstressed, ambulatory subject supports the diagnosis of Diabetes Mellitus. Serum or plasma potassium me asurement (moles/volume)Ordered By: Feng Barlow on 03-14-2022 Potassium [Moles/Vol] 3.5 mmol/L 3.5-5.1 [facility] Serum or plasma sodium measu rement (moles/volume)Ordered By: Feng Barlow on 03-14-2022 Sodium [Moles/Vol] 137 mmol/L 136-146 [facility] Serum or plasma total biliru bin measurement (mass/volume)Ordered By: Feng Barlow on 03-14-2022 Bilirubin [Mass/Vol] 0.8 mg/dL 0.3-1.2 [facility] Serum or plasma total carbon dioxide measurement (moles/volume)Ordered By: Feng Barlow on 03-14-2022 CO2 [Moles/Vol] 24.8 mmol/L 22.0-30.0 [facility] Serum or plasma urea nitroge n measurement (mass/volume)Ordered By: Feng Barlow on 03-14-2022 Urea nitrogen [Mass/Vol] 14 mg/dL 9-23 [facility] Troponin I.cardiac [Mass/vol ume] in Serum or Plasma by High sensitivity methodOrdered By: Feng Barlow on 03-14-2022 Troponin I.cardiac High sensitivity method [Mass/Vol] < 3 pg/mL 0-15 [facility] Albumin [Mass/volume] in Ser um or PlasmaOrdered By: Brando Guy on 02-10-2022 Albumin [Mass/Vol] 3.9 g/dL 3.2-5.5 [facility] Basophils Auto (Bld) [#/Vol] Ordered By: Brando Guy on 02-10-2022 Basophils (Bld) [#/Vol] 0.0 10*3/uL 0.0-0.2 [facility] Basophils/100 WBC Auto (Bld) Ordered By: Brando Guy on 02-10-2022 Basophils/100 WBC (Bld) 0.7 % . [facility] Bilirubin Test strip Ql (U)O rdered By: Brando Guy on 02-10-2022 Bilirubin Ql (U) Negative Negative [facility] Blood hemoglobin measurement (mass/volume)Ordered By: Brando Guy on 02-10-2022 Hemoglobin (Bld) [Mass/Vol] 13.9 g/dL 11.8-15.4 [facility] Blood leukocytes automated c ount (number/volume)Ordered By: Brando Guy on 02-10-2022 WBC (Bld) [#/Vol] 6.4 10*3/uL 4.5-11.0 [facility] Color Auto (U)Ordered By: Fidencio Guy on 02-10-2022 Color (U) Yellow Yellow [facility] Creatinine and Glomerular fi ltration rate.predicted panel (S/P/Bld)Ordered By: Brando Guy on 02-10-2022 Creatinine [Mass/Vol] 0.90 mg/dL 0.44-1.03 [facility] Eosinophils Auto (Bld) [#/Vo l]Ordered By: Brando Guy on 02-10-2022 Eosinophils (Bld) [#/Vol] 0.2 10*3/uL 0.0-0.45 [facility] Eosinophils/100 WBC Auto (Bl d)Ordered By: Brando Guy on 02-10-2022 Eosinophils/100 WBC (Bld) 2.5 % . [facility] Erythrocyte distribution wid th Auto (RBC) [Ratio]Ordered By: Brando Guy on 02-10-2022 Erythrocyte distribution width (RBC) [Ratio] 13.5 % 11.9-15.3 [facility] Estimated glomerular filtrat ion rate (GFR) non- AmericanOrdered By: Brando Guy on 02-10-2022 GFR/1.73 sq M.predicted among non-blacks MDRD (S/P/Bld) [Vol rate/Area] > 60 mL/Min [facility] Globulin Calc (S) [Mass/Vol] Ordered By: Brando Guy on 02-10-2022 Globulin (S) [Mass/Vol] 2.8 g/dL [facility] HCG ( test) IA.rapi d Ql (U)Ordered By: Brando Guy on 02-10-2022 HCG ( test) Ql (U) Negative [facility] Hematocrit Auto (Bld) [Volum e fraction]Ordered By: Brando Guy on 02-10-2022 Hematocrit (Bld) [Volume fraction] 42.1 % 34.0-46.4 [facility] Ketones Auto test strip (U) [Mass/Vol]Ordered By: Brando Guy on 02-10-2022 Ketones (U) [Mass/Vol] Negative Negative [facility] - Hematology and Cell countsOrdered By: Brando Guy on 02-10-2022 Nucleated RBC/100 WBC (Bld) [Ratio] 0.0 % 0-0.5 [facility] Lymphocytes Auto (Bld) [#/Vo l]Ordered By: Brando Guy on 02-10-2022 Lymphocytes (Bld) [#/Vol] 1.9 10*3/uL 1.00-4.8 [facility] Lymphocytes/100 WBC Auto (Bl d)Ordered By: Brando Guy on 02-10-2022 Lymphocytes/100 WBC (Bld) 29.2 % . [facility] MCH Auto (RBC) [Entitic mass ]Ordered By: Brando Guy on 02-10-2022 MCH (RBC) [Entitic mass] 28.8 pg 24.7-34.3 [facility] MCHC Auto (RBC) [Mass/Vol]Or dered By: Brando Gyu on 02-10-2022 MCHC (RBC) [Mass/Vol] 33.1 g/dL 32.0-35.0 [facility] MCV Auto (RBC) [Entitic vol] Ordered By: Brando Guy on 02-10-2022 MCV (RBC) [Entitic vol] 87.1 fL 80-100 [facility] Monocytes Auto (Bld) [#/Vol] Ordered By: Brando Guy on 02-10-2022 Monocytes (Bld) [#/Vol] 0.5 10*3/uL 0.0-0.8 [facility] Monocytes/100 WBC Auto (Bld) Ordered By: Brando Guy on 02-10-2022 Monocytes/100 WBC (Bld) 8.6 % . [facility] Neutrophils Auto (Bld) [#/Vo l]Ordered By: Brando Guy on 02-10-2022 Neutrophils (Bld) [#/Vol] 3.8 10*3/uL 1.8-7.7 [facility] Neutrophils/100 WBC Auto (Bl d)Ordered By: Brando Guy on 02-10-2022 Neutrophils/100 WBC (Bld) 59.0 % . [facility] Nitrite Test strip Ql (U)Ord ered By: Brando Guy on 02-10-2022 Nitrite Ql (U) Negative Negative [facility] No Panel InformationOrdered By: Brando Guy on 02-10-2022 Lamotrigine (Lamictal) Level <1.0 ug/mL 2.0-20.0 [facility] Comment on above: Detection Limit = 1. 0 Performed at: [facility] [address] [id number] [facility]p Strategic Planning: Brent Alves MD, Phone: [phone] Estimated GFR () > 60 mL/Min [facility] Comment on above: GFR estimated refere nce range: According to KDOQI guidelines, <60 ml/min/1.73m2 is sufficient to diagnose a patient with chronic kidney disease. Pharmacy Creatinine Clearance (Chem 79.33 [facility] Platelet mean volume Auto (B ld) [Entitic vol]Ordered By: Brando Guy on 02-10-2022 Platelet mean volume (Bld) [Entitic vol] 9.1 fL 6.3-10.7 [facility] Platelets Auto (Bld) [#/Vol] Ordered By: Brando Guy on 02-10-2022 Platelets (Bld) [#/Vol] 200 10*3/uL 150-450 [facility] Prolactin [Mass/volume] in S nury or PlasmaOrdered By: Brando Guy on 02-10-2022 Prolactin [Mass/Vol] 28.09 ng/mL 3.34-26.72 [facility] Protein Auto test strip (U) [Mass/Vol]Ordered By: Brando Guy on 02-10-2022 Protein (U) [Mass/Vol] Negative Negative [facility] Protein [Mass/volume] in Ser um or PlasmaOrdered By: Brando Guy on 02-10-2022 Protein [Mass/Vol] 6.7 g/dL 6.1-7.9 [facility] RBC Auto (Bld) [#/Vol]Ordere d By: Brando Guy on 02-10-2022 RBC (Bld) [#/Vol] 4.84 10*6/uL 3.60-5.00 [facility] Serum or plasma alanine greene otransferase measurement without P-5'-P (enzymatic activiOrdered By: Brando Guy on 02-10-2022 ALT No additional P-5'-P [Catalytic activity/Vol] 19 U/L 10-60 [facility] Serum or plasma albumin/glob ulin mass ratioOrdered By: Brando Guy on 02-10-2022 Albumin/Globulin [Mass ratio] 1.4 {ratio} [facility] Serum or plasma alkaline donna sphatase measurement (enzymatic activity/volume)Ordered By: Brando Guy on 02-10-2022 ALP [Catalytic activity/Vol] 67 U/L 32-92 [facility] Serum or plasma aspartate am inotransferase measurement (enzymatic activity/volume)Ordered By: Brando Guy on 02-10-2022 AST [Catalytic activity/Vol] 22 U/L 10-42 [facility] Serum or plasma calcium france urement (mass/volume)Ordered By: Brando Guy on 02-10-2022 Calcium [Mass/Vol] 9.5 mg/dL 8.2-10.2 [facility] Serum or plasma chloride joanne surement (moles/volume)Ordered By: Brando Guy on 02-10-2022 Chloride [Moles/Vol] 102 mmol/L 95-114 [facility] Serum or plasma glucose france urement (mass/volume)Ordered By: Brando Guy on 02-10-2022 Glucose [Mass/Vol] 99 mg/dL 70-100 [facility] Comment on above: ADA recommended refe rence range Random Glucose Reference Range is dependent on time and content of last meal. Glucose of more than 200 mg/dL in a nonstressed, ambulatory subject supports the diagnosis of Diabetes Mellitus. Serum or plasma potassium me asurement (moles/volume)Ordered By: Brando Guy on 02-10-2022 Potassium [Moles/Vol] 3.8 mmol/L 3.5-5.1 [facility] Serum or plasma sodium measu rement (moles/volume)Ordered By: Brando Guy on 02-10-2022 Sodium [Moles/Vol] 137 mmol/L 136-146 [facility] Serum or plasma total biliru bin measurement (mass/volume)Ordered By: Brando Guy on 02-10-2022 Bilirubin [Mass/Vol] 0.5 mg/dL 0.3-1.2 [facility] Serum or plasma total carbon dioxide measurement (moles/volume)Ordered By: Brando Guy on 02-10-2022 CO2 [Moles/Vol] 26.4 mmol/L 22.0-30.0 [facility] Serum or plasma urea nitroge n measurement (mass/volume)Ordered By: Brando Guy on 02-10-2022 Urea nitrogen [Mass/Vol] 20 mg/dL 9-23 [facility] Specific gravity Auto test s trip (U) [Rel density]Ordered By: Brando Guy on 02-10-2022 Specific gravity (U) [Rel density] 1.013 1.001-1.030 [facility] Urine clarity by refractomet ry automatedOrdered By: Brando Guy on 02-10-2022 Clarity Refractometry automated (U) Clear Clear [facility] Urine glucose measurement by automated test strip (mass/volume)Ordered By: Brando Guy on 02-10-2022 Glucose Auto test strip (U) [Mass/Vol] Normal mg/dL Normal [facility] Urine hemoglobin detection b y automated test stripOrdered By: Brando Guy on 02-10-2022 Hemoglobin Auto test strip Ql (U) Negative Negative [facility] Urine leukocyte esterase det ection by automated test stripOrdered By: Brando Guy on 02-10-2022 Leukocyte esterase Auto test strip Ql (U) Negative Negative [facility] Urobilinogen Auto test strip (U) [Mass/Vol]Ordered By: Brando Guy on 02-10-2022 Urobilinogen (U) [Mass/Vol] Normal mg/dL Normal [facility] pH Auto test strip (U)Ordere d By: Brando Guy on 02-10-2022 pH (U) 6.5 [pH] 5.0-9.0 [facility] Urine culture routineOrdered By: Kristine Welsh on 01-31-2022 Bacteria identified Cx Nom (U) 2 Days [facility] Amorphous urine sedimentOrde red By: Kristine Welsh on 01-29-2022 Amorphous sediment LM Ql (Urine sed) See comment Negative [facility] Comment on above: Unable to obtain acc urate result due to color interference. Automated epithelial cells c ount in urine sediment (number/area)Ordered By: Kristine Welsh on 01-29-2022 Epithelial cells Auto (Urine sed) [#/Area] 10-19 [HPF] 0-2 [facility] Automated erythrocytes count in urine sediment (number/area)Ordered By: Kristine Welsh on 01-29-2022 RBC Auto (Urine sed) [#/Area] Innumerable [HPF] 0-4 [facility] Automated leukocytes count i n urine sediment (number/area)Ordered By: Kristine Welsh on 01-29-2022 WBC Auto (Urine sed) [#/Area] 3-4 [HPF] 0-4 [facility] Automated urine specific gra vity by refractometryOrdered By: Kristine Welsh on 01-29-2022 Specific gravity Refractometry automated (U) [Rel density] 1.036 1.001-1.030 [facility] Comment on above: Rechecked by refract ometer Bilirubin Auto test strip Ql (U)Ordered By: Kristine Welsh on 01-29-2022 Bilirubin Ql (U) See comment Negative [facility] Comment on above: Unable to obtain acc urate result due to color interference. HCG ( test) IA.rapi d Ql (U)Ordered By: Kristine Welsh on 01-29-2022 HCG ( test) Ql (U) Negative [facility] Ketones Test strip (U) [Mass /Vol]Ordered By: Kristine Welsh on 01-29-2022 Ketones (U) [Mass/Vol] See comment Negative [facility] Comment on above: Unable to obtain acc urate result due to color interference. Laboratory - Microbiology an d Antimicrobial susceptibilityOrdered By: Kristine Welsh on 01-29-2022 C. trachomatis DNA CHARLINE+probe Ql (Unsp spec) Negative Negative [facility] N. gonorrhoeae DNA CHARLINE+probe Ql (Unsp spec) Negative Negative [facility] Comment on above: Performed at: = - [address] [id number] [employer]p Strategic Planning: Sara Estes MD, Phone: [phone] Mucus LM Ql (Urine sed)Order ed By: Kristine Welsh on 01-29-2022 Mucus Ql (Urine sed) 1+ [LPF] [facility] Protein Auto test strip (U) [Mass/Vol]Ordered By: Kristine Welsh on 01-29-2022 Protein (U) [Mass/Vol] See comment Negative [facility] Comment on above: Unable to obtain acc urate result due to color interference. Urine appearanceOrdered By: Kristine Welsh on 01-29-2022 Appearance (U) Turbid Clear [facility] Urine bacteria detection by automated methodOrdered By: Kristine Welsh on 01-29-2022 Bacteria Auto Ql (U) Rare None Seen [facility] Urine colorOrdered By: Gregg Welsh on 01-29-2022 Color (U) Red Yellow [facility] Urine glucose measurement by automated test strip (mass/volume)Ordered By: Kristine Welsh on 01-29-2022 Glucose Auto test strip (U) [Mass/Vol] See comment [facility] Comment on above: Unable to obtain acc urate result due to color interference. Urine leukocyte esterase det ection by automated test stripOrdered By: Kristine Welsh on 01-29-2022 Leukocyte esterase Auto test strip Ql (U) See comment Negative [facility] Comment on above: Unable to obtain acc urate result due to color interference. Urine nitrite detection by a utomated test stripOrdered By: Kristine Welsh on 01-29-2022 Nitrite Auto test strip Ql (U) See comment Negative [facility] Comment on above: Unable to obtain acc urate result due to color interference. Urobilinogen Test strip (U) [Mass/Vol]Ordered By: Kristine Welsh on 01-29-2022 Urobilinogen (U) [Mass/Vol] See comment [facility] Comment on above: Unable to obtain acc urate result due to color interference. pH Auto test strip (U)Ordere d By: Kristine Welsh on 01-29-2022 pH (U) See comment 5.0-9.0 [facility] Comment on above: Unable to obtain acc urate result due to color interference. [facility] 01-[facility]2022 [facility] HNO ID: [id number] Author: Lexie Gooden, television news producer Service: Radiology Author Type: Volunteer Recruiter Type: [facility] Filed: 01/05/2022 3:15 PM [...] IV DATA: Not applicable SIGNED BY: Lexie Gooden, television news producer, Scarlet Del Castillo, RT(R) January 05, 2022 3:00 PM Normal [facility] MRI BRAIN WO IVCONon 022 MRI BRAIN WO IVCON * * *Final Report* * * DATE OF EXAM: Jan 05 2022 3:16PM [facility] 0294 - MRI BRAIN WO [...] Normal remaining brain without acute intracranial disease. Scaling Machine Operator[facility] Transcribe Date/Time: Jan 05 2022 3:24P Dictated by : SHAUN RODRIGUEZ MD This examination was interpreted and the report reviewed and electronically signed by: SHAUN RODRIGUEZ MD on Jan 05 2022 3:29PM EST [id number] Normal [facility] CT Abdomen/Pelvis w/o Contra ston 07-21-2021 CT [...] by SHAUN ZULUAGA on 07/21/2021 1657 Normal [facility] Specialist Vital Signs Date Time Vital Sign Value Performing Clinician Facility 09-20-2023 15:42-0500 Body height 152.4 cm Christie Lause DISULFURIZER TENDER Work Phone: [facility] 09-20-2023 15:42-0500 Body mass index (BMI) [Ratio] 27.46 kg/m2 Christie Lause DISULFURIZER TENDER Work Phone: [facility] 09-20-2023 15:42-0500 Body temperature 97.7 [degF] Christie Lause DISULFURIZER TENDER Work Phone: [facility] 09-20-2023 15:42-0500 Body weight 63.78 kg Christie Lause DISULFURIZER TENDER Work Phone: [facility] 09-20-2023 15:42-0500 Diastolic blood pressure 60 mm[Hg] Christie Lause DISULFURIZER TENDER Work Phone: [facility] 09-20-2023 15:42-0500 Heart rate 70 /min Christie Lause DISULFURIZER TENDER Work Phone: [facility] 09-20-2023 15:42-0500 Respiratory rate 16 /min Christie Lause DISULFURIZER TENDER Work Phone: [facility] 09-20-2023 15:42-0500 SaO2% (BldA) [Mass fraction] 98 % Christie Malonealanis DISULFURIZER TENDER Work Phone: [facility] 09-20-2023 15:42-0500 Systolic blood pressure 122 mm[Hg] Christie Aldana DISULFURIZER TENDER Work Phone: [facility] 07-11-2023 20:07-0500 Body height 152.4 cm MD Remi Andrew Work Phone: [facility] 07-11-2023 20:07-0500 Body temperature 98 [degF] MD Remi Andrew Work Phone: [facility] 07-11-2023 20:07-0500 Body weight 66.6 kg MD Remi Andrew Work Phone: [facility] 07-11-2023 20:07-0500 Diastolic blood pressure 69 mm[Hg] MD Remi Andrew Work Phone: [facility] 07-11-2023 20:07-0500 Heart rate 58 /min MD Remi Andrew Work Phone: [facility] 07-11-2023 20:07-0500 Respiratory rate 18 /min MD Remi Andrew Work Phone: [facility] 07-11-2023 20:07-0500 SaO2% (BldA) [Mass fraction] 98 % MD Remi Andrew Work Phone: [facility] 07-11-2023 20:07-0500 Systolic blood pressure 138 mm[Hg] MD Remi Andrew Work Phone: [facility] 11-22-2022 12:37-0400 Body height 152.4 cm Pacc 6 Work Phone: [facility] 11-22-2022 12:37-0400 Body temperature 98.2 [degF] Pacc 6 Work Phone: [facility] 11-22-2022 12:37-0400 Body weight 58.51 kg Pacc 6 Work Phone: [facility] 11-22-2022 12:37-0400 Diastolic blood pressure 52 mm[Hg] Pac 6 Work Phone: [facility] 11-22-2022 12:37-0400 Heart rate 57 /min Pac 6 Work Phone: [facility] 11-22-2022 12:37-0400 SaO2% (BldA) [Mass fraction] 99 % Pac 6 Work Phone: [facility] 11-22-2022 12:37-0400 Systolic blood pressure 101 mm[Hg] Pac 6 Work Phone: [facility] 11-22-2022 07:56-0400 Diastolic blood pressure 60 mm[Hg] Christiano Nichols MD Work Phone: [facility] 11-22-2022 07:56-0400 Systolic blood pressure 116 mm[Hg] Christiano Nichols MD Work Phone: [facility] 11-22-2022 07:54-0400 Body weight 56.7 kg Christiano Nichols MD Work Phone: [facility] 11-22-2022 07:54-0400 Heart rate 59 /min Christiano Nichols MD Work Phone: [facility] 11-22-2022 07:54-0400 SaO2% (BldA) [Mass fraction] 96 % Christiano Nichols MD Work Phone: [facility] 10-12-2022 13:51-0500 Body height 152.4 cm Robert Marin MD Work Phone: [facility] 10-12-2022 13:51-0500 Body weight 56.7 kg Robert Marin MD Work Phone: [facility] 10-12-2022 13:51-0500 Diastolic blood pressure 56 mm[Hg] Robert Marin MD Work Phone: [facility] 10-12-2022 13:51-0500 Heart rate 57 /min Robert Marin MD Work Phone: [facility] 10-12-2022 13:51-0500 Respiratory rate 17 /min Robert Marin MD Work Phone: [facility] 10-12-2022 13:51-0500 SaO2% (BldA) [Mass fraction] 98 % Robert Marin MD Work Phone: [facility] 10-12-2022 13:51-0500 Systolic blood pressure 110 mm[Hg] Robert Marin MD Work Phone: [facility] 10-03-2022 02:51-0500 Diastolic blood pressure 57 mm[Hg] MD Remi Andrew Work Phone: [facility] 10-03-2022 02:51-0500 Heart rate 99 /min MD Remi Andrew Work Phone: [facility] 10-03-2022 02:51-0500 Respiratory rate 18 /min MD Remi Andrew Work Phone: [facility] 10-03-2022 02:51-0500 SaO2% (BldA) [Mass fraction] 100 % MD Remi Andrew Work Phone: [facility] 10-03-2022 02:51-0500 Systolic blood pressure 112 mm[Hg] MD Remi Andrew Work Phone: [facility] 10-02-2022 20:13-0500 Body height 154.94 cm MD Remi Andrew Work Phone: [facility] 10-02-2022 20:13-0500 Body weight 57.3 kg MD Remi Andrew Work Phone: [facility] 10-02-2022 19:54-0500 Body temperature 97 [degF] MD Remi Andrew Work Phone: [facility] 08-26-2022 09:30-0500 Diastolic blood pressure 54 mm[Hg] MD Remi Andrew Work Phone: [facility] 08-26-2022 09:30-0500 Heart rate 86 /min MD Remi Andrew Work Phone: [facility] 08-26-2022 09:30-0500 Respiratory rate 16 /min MD Remi Andrew Work Phone: [facility] 08-26-2022 09:30-0500 SaO2% (BldA) [Mass fraction] 98 % MD Remi Andrew Work Phone: [facility] 08-26-2022 09:30-0500 Systolic blood pressure 113 mm[Hg] MD Remi Andrew Work Phone: [facility] 08-25-2022 13:14-0500 Body height 152.4 cm MD Remi Andrew Work Phone: [facility] 08-25-2022 13:14-0500 Body temperature 98.8 [degF] MD Remi Andrew Work Phone: [facility] 08-25-2022 13:14-0500 Body weight 58 kg MD Remi Andrew Work Phone: [facility] 07-15-2022 01:30-0500 Diastolic blood pressure 67 mm[Hg] MD Remi Andrew Work Phone: [facility] 07-15-2022 01:30-0500 Heart rate 78 /min MD Remi Andrew Work Phone: [facility] 07-15-2022 01:30-0500 Respiratory rate 16 /min MD Remi Andrew Work Phone: [facility] 07-15-2022 01:30-0500 SaO2% (BldA) [Mass fraction] 98 % MD Remi Andrew Work Phone: [facility] 07-15-2022 01:30-0500 Systolic blood pressure 115 mm[Hg] MD Remi Andrew Work Phone: [facility] 07-14-2022 23:54-0500 Body temperature 98.5 [degF] MD Remi Andrew Work Phone: [facility] 07-14-2022 19:55-0500 Body height 152.4 cm MD Remi Andrew Work Phone: [facility] 07-14-2022 19:55-0500 Body weight 5 kg MD Remi Andrew Work Phone: [facility] 04-05-2022 02:22-0400 Diastolic blood pressure 61 mm[Hg] MD Remi Andrew Work Phone: [facility] 04-05-2022 02:22-0400 Heart rate 54 /min MD Remi Andrew Work Phone: [facility] 04-05-2022 02:22-0400 Respiratory rate 18 /min MD Remi Andrew Work Phone: [facility] 04-05-2022 02:22-0400 SaO2% (BldA) [Mass fraction] 98 % MD Remi Andrew Work Phone: [facility] 04-05-2022 02:22-0400 Systolic blood pressure 107 mm[Hg] MD Remi Andrew Work Phone: [facility] 04-04-2022 23:47-0400 Body temperature 98.4 [degF] MD Remi Andrew Work Phone: [facility] 04-04-2022 23:46-0400 Body height 152.4 cm MD Remi Andrew Work Phone: [facility] 04-04-2022 23:46-0400 Body weight 59.96 kg MD Remi Andrew Work Phone: [facility] 03-14-2022 17:15-0400 Diastolic blood pressure 83 mm[Hg] MD Remi Andrew Work Phone: [facility] 03-14-2022 17:15-0400 Heart rate 74 /min MD Remi Andrew Work Phone: [facility] 03-14-2022 17:15-0400 Respiratory rate 16 /min MD Remi Andrew Work Phone: [facility] 03-14-2022 17:15-0400 SaO2% (BldA) [Mass fraction] 100 % MD Remi Andrew Work Phone: [facility] 03-14-2022 17:15-0400 Systolic blood pressure 120 mm[Hg] MD Remi Andrew Work Phone: [facility] 03-14-2022 14:57-0400 Body temperature 98.1 [degF] MD Remi Andrew Work Phone: [facility] 03-14-2022 14:54-0400 Body height 152.4 cm MD Remi Andrew Work Phone: [facility] 03-14-2022 14:54-0400 Body weight 58 kg MD Remi Andrew Work Phone: [facility] 02-10-2022 08:44-0400 Body temperature 96.8 [degF] MD Remi Andrew Work Phone: [facility] 02-10-2022 08:25-0400 Diastolic blood pressure 56 mm[Hg] MD Remi Andrew Work Phone: [facility] 02-10-2022 08:25-0400 Heart rate 55 /min MD Remi Andrew Work Phone: [facility] 02-10-2022 08:25-0400 Respiratory rate 16 /min MD Remi Andrew Work Phone: [facility] 02-10-2022 08:25-0400 SaO2% (BldA) [Mass fraction] 97 % MD Remi Andrew Work Phone: [facility] 02-10-2022 08:25-0400 Systolic blood pressure 113 mm[Hg] MD Remi Andrew Work Phone: [facility] 02-10-2022 06:03-0400 Body height 152.4 cm MD Remi Andrew Work Phone: [facility] 02-10-2022 06:03-0400 Body mass index (BMI) [Percentile] Per age and sex 76 % MD Remi Andrew Work Phone: [facility] 02-10-2022 06:03-0400 Body mass index (BMI) [Ratio] 24.4 kg/m2 MD Remi Andrew Work Phone: [facility] 02-10-2022 06:03-0400 Body weight 56.69 kg MD Remi Andrew Work Phone: [facility] 01-29-2022 16:57-0400 Body height 154.94 cm MD Remi Andrew Work Phone: [facility] 01-29-2022 16:57-0400 Body mass index (BMI) [Percentile] Per age and sex 79.6 % MD Remi Andrew Work Phone: [facility] 01-29-2022 16:57-0400 Body mass index (BMI) [Ratio] 25 kg/m2 MD Remi Andrew Work Phone: [facility] 01-29-2022 16:57-0400 Body temperature 98.5 [degF] MD Remi Andrew Work Phone: [facility] 01-29-2022 16:57-0400 Body weight 60 kg MD Remi Andrew Work Phone: [facility] 01-29-2022 16:57-0400 Diastolic blood pressure 63 mm[Hg] MD Remi Andrew Work Phone: [facility] 01-29-2022 16:57-0400 Heart rate 82 /min MD Remi Andrew Work Phone: [facility] 01-29-2022 16:57-0400 Respiratory rate 16 /min MD Remi Andrew Work Phone: [facility] 01-29-2022 16:57-0400 SaO2% (BldA) [Mass fraction] 97 % MD Remi Andrew Work Phone: [facility] 01-29-2022 16:57-0400 Systolic blood pressure 120 mm[Hg] MD Remi Andrew Work Phone: [facility] 12-22-2021 10:17-0400 Body height 152.4 cm Robert Marin MD Work Phone: [facility] 12-22-2021 10:17-0400 Body mass index (BMI) [Percentile] Per age and sex 83.81 % Robert Marin MD Work Phone: [facility] 12-22-2021 10:17-0400 Body weight 60.06 kg Robert Marin MD Work Phone: [facility] 12-22-2021 10:17-0400 Diastolic blood pressure 51 mm[Hg] Robert Marin MD Work Phone: [facility] 12-22-2021 10:17-0400 Heart rate 51 /min Robert Mairn MD Work Phone: [facility] 12-22-2021 10:17-0400 Respiratory rate 19 /min Robert Marin MD Work Phone: [facility] 12-22-2021 10:17-0400 SaO2% (BldA) [Mass fraction] 99 % Robert Marin MD Work Phone: [facility] 12-22-2021 10:17-0400 Systolic blood pressure 106 mm[Hg] Robert Marin MD Work Phone: [facility] Encounters Encounter Date Encounter Type Care Provider Facility Start: 08-01-2024 End: 08-01-2024 ambulatory SELF Facility:[facility] Start: 07-31-2024 End: 07-31-2024 E-mail encounter from caregiver Lona Urrutia RP Work Phone: Neurology Start: 07-31-2024 End: 07-31-2024 ambulatory Lona Urrutia RPh Work Phone: Neurology Comment on above: Pharmacy Visit [facility] Partial epilepsy wit h impairment of consciousness, intractable (HCC) (Primary Dx) Start: 07-31-2024 End: 07-31-2024 Telemedicine consultation with patient Lona Urrutia [facility] Work Phone: Neurology Start: 07-26-2024 End: 07-29-2024 Clinisync Result Encounter Generic External Data Provider [facility] External Department Unsolicited Start: 07-26-2024 End: 07-29-2024 Clinisync Result Encounter Generic External Data Provider [facility] External Department Unsolicited Start: 07-26-2024 End: 07-26-2024 ambulatory REMI ANDREW Facility:[facility] Start: 07-25-2024 End: 07-29-2024 ambulatory Robert Marin MD Work Phone: Neurology Comment on above: Blood work schedulin g Start: 07-25-2024 End: 07-25-2024 Telephone encounter Robert Marin MD Work Phone: Neurology Comment on above: Medication Problem ( Briviact) Start: 07-19-2024 End: 07-22-2024 Refill Belén Peck PA-C Work Phone: Neurology Comment on above: Refill Request Start: 06-19-2024 End: 06-24-2024 Refill Christie Aldana NP Work Phone: [facility] Comment on above: Vitamin D deficiency Start: [...] Refill Request Start: 04-29-2024 End: 04-29-2024 ambulatory REMI ANDREW Facility:[facility] Start: 03-28-2024 End: 03-28-2024 ambulatory MD Remi Andrew Work Phone: [facility] Work Phone: Start: 03-28-2024 End: 03-28-2024 Patient encounter procedure MD Remi Andrew Work Phone: [facility] Start: 03-28-2024 End: 03-28-2024 ambulatory ESSENCE PATEL Not Available Start: 03-26-2024 End: 03-26-2024 ambulatory SELF Facility:[facility] Start: 01-25-2024 End: 01-25-2024 ambulatory Robert Marin MD Work Phone: Neurology Comment on above: Driving papers Start: 01-25-2024 Refill Delia SAMSON C Work Phone: Neurology Comment on above: Refill Request Start: 01-25-2024 End: 01-25-2024 Admission to same day surgery center Claudio Brando BLANCOVENETIAN BLIND MACHINE OPERATOR Work Phone: Neurosurgery Comment on above: Partial symptomatic epilepsy with complex partial seizures, not intractable, 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 Start: 01-05-2024 End: 01-05-2024 ambulatory ESSENCE PATEL Not Available Start: 10-29-2023 Refill Sarahy Danese A PRN.VENETIAN BLIND MACHINE OPERATOR Work Phone: Neurology Comment on above: Refill Request Start: 10-29-2023 Refill Sarahy Danese A PRN.VENETIAN BLIND MACHINE OPERATOR Work Phone: Neurology Comment on above: Refill Request Start: 10-25-2023 End: 10-26-2023 ambulatory Robyn Leslie Fostere Facility:[facility] Start: 10-25-2023 End: 10-25-2023 ambulatory CHRISTIE R LAUSE Not Available Start: 10-25-2023 End: 10-25-2023 Lab Drop off Robyn Bundy [facility] Start: 09-20-2023 End: 09-20-2023 ambulatory CHRISTIE R LAUSE Not Available Start: 09-20-2023 End: 09-20-2023 Office outpatient visit 15 minutes Christie R Lause DISULFURIZER TENDER Work Phone: [facility] Comment on above: Other epilepsy witho ut status epilepticus, not intractable (CMS/HCC) (Primary Dx); Anxiety and depression (CMS/HCC); S/P brain surgery; Seizure (CMS/HCC) Start: 09-20-2023 Chart abstracting Christie R La use DISULFURIZER TENDER Work Phone: [facility] Start: 09-14-2023 Clinisync [...] with patient Robert Marin MD Work Phone: [facility] Start: 07-21-2023 End: 07-21-2023 Patient encounter procedure Claudio Michaels APRN.VENETIAN BLIND MACHINE OPERATOR Work Phone: Neurosurgery Comment on above: Partial [...] patient visit MD Remi Andrew Work Phone: [facility] Work Phone: Start: 06-30-2023 End: 06-30-2023 ambulatory CHRISTIE ALDANA Not Available Start: 05-25-2023 Telephone encounter Robert camp MD Work Phone: Neurology Comment on above: Forms (Panfilo mae ) Start: 04-20-2023 Refill Robert Marin MD Work Phone: Neurology Comment on above: Refill Request Start: 03-17-2023 Refill Robert Marin MD Work Phone: Neurology Comment on above: Refill Request Start: 03-10-2023 Chart abstracting Robert barbour MD Work Phone: Neurology Start: 03-09-2023 End: 03-09-2023 ambulatory Evaristo Torres PA-C Work Phone: Neurosurgery Comment on above: S/P craniotomy (Prim jonah Dx) Start: 03-09-2023 End: 03-09-2023 Telemedicine consultation with patient Evaristo Torres KRISTA Work Phone: [facility] Start: 02-07-2023 End: 02-07-2023 Nursing evaluation of patient and report Lona Martin RN Neurosurgery Comment on above: Visit for suture rem oval (Primary Dx) Start: 01-27-2023 Telephone encounter Jess sanchez MD Work Phone: Neurology Comment on above: Received Outside Med ical Records ([employer] ) Start: 01-24-2023 End: 01-24-2023 Patient encounter [...] on above: Received Outside Med ical Records ([employer]) Start: 01-10-2023 End: 01-10-2023 Admission to same day surgery center Jess David MD Work Phone: Neurosurgery Comment on above: Partial symptomatic epilepsy with complex partial seizures, not intractable, 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); Refractory epilepsy (HCC); Seizure (HCC); S/P brain surgery Schedule Surgery (ri ght-sided temporal craniotomy/) Start: 01-10-2023 ambulatory eJss solares MD Work Phone: [facility] Start: 01-10-2023 Patient encounter status Jose J David MD Work Phone: Neurosurgery Start: 01-10-2023 Preprocedural examination done Jess David MD Work Phone: Neurosurgery Start: 01-10-2023 End: 01-10-2023 Telemedicine consultation with patient Jess David MD Work Phone: [facility] Start: 01-05-2023 Telephone encounter Jess sanchez MD Work Phone: Neurosurgery Comment on above: Ditch Tender - O ther Start: 12-26-2022 Telephone encounter Jess sanchez MD Work Phone: Neurology Comment on above: Ditch Tender - O ther Acute deep vein thro mbosis (DVT) of brachial vein of left upper extremity (HCC) (Primary Dx) Start: 12-23-2022 Telephone encounter Jess sanchez MD Work Phone: Neurosurgery Comment on above: Ditch Tender - O ther Start: 12-06-2022 Chart abstracting Tomas sánchez MD Work Phone: [facility] Start: 11-23-2022 Telephone encounter Jess sanchez MD Work Phone: Neurosurgery Comment on above: Results; Care Coordi nator - Other Start: 11-22-2022 End: 11-22-2022 Nursing evaluation of patient and report Lona Martin RN Neurosurgery Comment on above: Preoperative examina tion (Primary Dx) Start: 11-22-2022 End: 11-22-2022 Preprocedural examination done Lona Martin RN Neurosurgery Start: 11-22-2022 End: 11-22-2022 Admission to establishment Pacc Main 6 Work Phone: [facility] Start: 11-22-2022 End: 11-22-2022 ambulatory P[facility] 6 Work Phone: Pre Anesthesia Comment on above: Pre-op evaluation (P rimary Dx) Start: 11-22-2022 End: 11-22-2022 Preprocedural examination done Pacc Main 6 Work Phone: Pre Anesthesia Start: 11-22-2022 End: 11-22-2022 Subsequent hospital visit by physician Jenna 3 Radio Main Q (I-Stat/1.5t/3t) Work Phone: [...] Work Phone: Cardiology Start: 10-19-2022 Admission to same day surgery center Jess David MD Work Phone: Neurosurgery Comment on above: Schedule Surgery (Ri ght SEEG) Start: 10-19-2022 ambulatory Jess solares MD Work Phone: [facility] Start: 10-19-2022 Patient encounter status Jose J David MD Work Phone: Neurosurgery Start: 10-18-2022 End: 10-18-2022 Subsequent hospital visit by physician Jenna Singh [facility] (7t) Work Phone: Radiology Comment on above: [...] with patient Jess David MD Work Phone: [facility] Start: 10-12-2022 End: 10-12-2022 Patient encounter procedure Robert Marin MD Work Phone: Neurology Comment on above: Partial symptomatic epilepsy with complex partial seizures, not intractable, 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); Seizure (HCC) Start: 10-02-2022 End: 10-03-2022 Emergency department patient visit MD Remi Andrew Work Phone: [facility] Work Phone: Start: 09-28-2022 End: 09-28-2022 ambulatory Robert Marin MD Work Phone: Neurology Comment on above: Partial symptomatic epilepsy with complex partial seizures, not intractable, 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) Start: 09-28-2022 End: 09-28-2022 Telemedicine consultation with patient Robert Marin MD Work Phone: [facility] Start: 09-20-2022 ambulatory Robert Marin [...] epilepticus (HCC) [G40.209] Start: 09-03-2022 ambulatory Nurse [employer] Service Supervisor NURSE PULLING UNIT FLOORHAND Comment on above: Medication Problem ( Possible [...] Work Phone: Neurology Comment on above: Other ([facility] ED calling to speak with Dr. Marin; pt in ED d/t seizures) Start: 08-25-2022 End: 08-26-2022 Emergency department patient visit MD Remi Andrew Work Phone: [facility] Work Phone: Start: 07-14-2022 End: 07-15-2022 Emergency department patient visit MD Remi Anrdew Work Phone: [facility] Start: 07-11-2022 End: 07-11-2022 ambulatory Robert Marin MD Work Phone: Neurology Comment on above: Partial symptomatic epilepsy with complex partial seizures, not intractable, 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) Start: 07-11-2022 End: 07-11-2022 Telemedicine consultation with patient Robert Marin MD Work Phone: [facility] Start: 06-16-2022 Telephone encounter Robert camp MD Work Phone: Neurology Comment on above: Forms (haile lugo b oard of DD/) Start: 05-03-2022 End: 05-03-2022 ambulatory Jorge Galvez MD Work Phone: Cardiology Comment on above: Palpitations [R00.2 (ICD-10-CM)] (Primary Dx) Start: 05-03-2022 End: 05-03-2022 Telemedicine consultation with patient Jorge Galvez MD Work Phone: [facility] Start: 04-27-2022 ambulatory Jorge Galvez MD Work Phone: Cardiology Comment on above: Question regarding L FADY TRANSTHORACIC ECHO Start: 04-07-2022 End: 04-07-2022 ambulatory Arrhythmia Monitoring Lab Work Phone: Cardiology Comment on above: event monitor (zio) Start: 04-05-2022 Telephone encounter Robetr camp MD Work Phone: Neurology Comment on above: Medication Problem ( Patient had severe symptoms after first dose of Zonisamide and received care in ED) Start: 04-04-2022 End: 04-05-2022 Emergency department patient visit MD Remi Andrew Work Phone: [facility] Start: 03-28-2022 End: 03-28-2022 ambulatory Robert Marin MD Work Phone: Neurology Comment on above: Partial symptomatic epilepsy with complex partial seizures, not intractable, without status epilepticus (HCC) Start: 03-28-2022 End: 03-28-2022 Telemedicine consultation with patient Robert Marin MD Work Phone: [facility] Start: 03-16-2022 End: 03-16-2022 Patient encounter procedure MD Remi Andrew Work Phone: [facility] Start: 03-14-2022 End: 03-14-2022 Emergency department patient visit MD Remi Andrew Work Phone: [facility] Start: 03-14-2022 Telephone encounter Robert camp MD Work Phone: Neurology Comment on above: Medication Problem ( AEDs - Shaky, Lightheaded, Increased Heart Rate) Start: 02-10-2022 Telephone encounter Robert camp MD Work Phone: Neurology Comment on above: medication concern ( lamical and keppra) Seizures Start: 02-10-2022 End: 02-10-2022 Emergency department patient visit MD Remi Andrew Work Phone: [facility] Start: 01-29-2022 End: 01-29-2022 Emergency department patient visit MD Remi Andrew Work Phone: [facility] Start: 01-05-2022 End: 01-05-2022 Subsequent hospital visit by physician Mr Lakeisha Holland (Istat/3t) Work Phone: [facility] Radiology MRI Comment on above: Partial symptomatic [...] Start: 11-18-2021 Patient encounter procedure Radha Cotter SALES CORRESPONDENT.VENETIAN BLIND MACHINE OPERATOR Work Phone: Neurology Comment on above: Convulsions, unspeci fied convulsion type (HCC) (Primary Dx) Procedures Date Procedure Procedure Detail Performing Clinician Start: 07-26-2024 BRIVARACETAM SERPL-[facility]NC Generic External Data Provider Start: 09-14-2023 [facility] CULTURE URINE Generic External Data Provider Start: 07-21-2023 Mri brain brain stem w/o contrast material Claudio Michaels SALES CORRESPONDENT.VENETIAN BLIND MACHINE OPERATOR Work Phone: Start: 01-24-2023 Unlisted magnetic resonance [...] Mri brain brain stem w/o contrast material Rboert Marin MD Work Phone: Start: 12-21-2021 Adult depression screening assessment Robert Marin MD Work Phone: Bacteria identification test MD Remi Andrew Work Phone: H/O: surgery S/P brain surgery Jess sanchez MD Work Phone: H/O: surgery S/P brain surgery Robert camp MD Work Phone: H/O: surgery S/P brain surgery Claudio Michaels SALES CORRESPONDENT.VENETIAN BLIND MACHINE OPERATOR Work Phone: H/O: surgery S/P brain surgery Christie Aldana DISULFURIZER TENDER Work Phone: H/O: surgery S/P brain surgery Claudio Michaels SALES CORRESPONDENT.VENETIAN BLIND MACHINE OPERATOR Work Phone: Urine culture MD Remi barbour Work Phone: Plan of Treatment Date Care Activity Detail Author Start: 04-10-2025 Urine microalbumin profile [facility] Start: 07-31-2024 End: 07-31-2024 ambulatory 07/31/2024 11:30 AM EST [facility] Neurology [address] [place] [address] Lona Urrutia [facility] [address] [facility] [id number] [place] [id number] Pharmacy f/u Neurology Comment on above: Pharmacy f/u Start: 07-25-2024 End: 10-24-2024 Brivaracetam [Mass/volume] in Serum or Plasma BRIVARACETAM Lab Routine Partial epilepsy with impairment of consciousness, intractable (HCC) Expected: 07/25/2024, Expires: 10/24/[address] [facility] Work Phone: Comment on above: Expected: 07/25/2024 , Expires: 10/24/2024 Start: 06-10-2024 End: 06-10-2024 ambulatory 06/10/2024 9:30 AM EDT [facility] Neurology [address] [place], [place] [id number] Robert Marin MD [address] [place] [address] Driving privileges update paperwork after 04/02/24 Neurology Comment on above: Driving privileges u pdate paperwork after 04/02/24 Start: 04-14-2024 Covid-19 Vaccine () Covid-19 Vaccine ( season) [facility] Start: 04-14-2024 Influenza vaccination C [facility] Start: 02-11-2024 Influenza vaccination Influenza Vacc ine (#1) [facility] Comment on above: Postponed from 04/14 (Patient Refused) Start: 01-25-2024 End: 01-25-2024 Follow-up encounter 01/25/2024 9:00 AM EDT [facility] Neurosurgery [address] [place] [address] Claudio Michaels, SALES CORRESPONDENT.VENETIAN BLIND MACHINE OPERATOR [address] [place] [address] 1 year follow up Neurosurgery Comment on above: 1 year follow up Start: 10-15-2023 Screening for malign ant neoplasm of cervix [facility] Start: 09-20-2023 End: 09-20-2023 Patient encounter procedure 09/20/2023 3:40 PM EST Office Visit [facility] [address] [place] [address] Christie Aldana, RENNY [address] [place] [address] [facility] Start: 04-14-2023 Covid-19 Vaccine ( season) Covid-19 Vaccine ( season) [facility] Start: 04-14-2023 Influenza vaccination C [facility] Start: 03-27-2023 Adult depression screening assessment DEPRESSION SCREENING [facility] Start: 01-24-2023 End: 03-26-2023 aPTT in Platelet poor plasma by Coagulation assay ACTIVATED PTT Lab Routine Preoperative examination Expected: 01/24/2023, Expires: 03/26/[address] [facility] Work Phone: Comment on above: Expected: 01/24/2023 , Expires: 03/26/2023 Start: 01-24-2023 End: 03-26-2023 CBC panel - Blood by Automated count CBC Lab Routine Preoperative examination Expected: 01/24/2023, Expires: 03/26/[address] [facility] Work Phone: Comment on above: Expected: 01/24/2023 , Expires: 03/26/2023 Start: 01-24-2023 End: 03-26-2023 Comprehensive metabolic 2000 panel - Serum or Plasma COMP METABOLIC PANEL Lab Routine Preoperative examination Expected: 01/24/2023, Expires: 03/26/[address] [facility] Work Phone: Comment on above: Expected: 01/24/2023 , Expires: 03/26/2023 Start: 01-24-2023 End: 03-26-2023 PT panel - Platelet poor plasma by Coagulation assay PROTHROMBIN TIME/PT Lab Routine Preoperative examination Expected: 01/24/2023, Expires: 03/26/[address] [facility] Work Phone: Comment on above: Expected: 01/24/2023 , Expires: 03/26/2023 Start: 01-24-2023 End: 07-09-2023 STAPH AUREUS PCR STAPH AUREUS PCR Lab Routine Preoperative examination Expected: 01/24/2023, Expires: 07/09/[address] [facility] Work Phone: Comment on above: Expected: 01/24/2023 , Expires: 07/09/2023 Start: 01-06-2023 End: 01-25-2024 US DVT UPPER LEFT US DVT UPPER LEFT Radiology Routine Acute deep vein thrombosis (DVT) of axillary vein of left upper extremity (HCC) Expected: 01/06/2023, Expires: 01/25/[address] [facility] Work Phone: Comment on above: Expected: 01/06/2023 , Expires: 01/25/2024 Start: 01-04-2023 End: 12-27-2023 US ARM VEIN DVT UNL VAS LAB US ARM VEIN DVT UNL VAS LAB Vascular Lab Routine Acute deep vein thrombosis (DVT) of brachial vein of left upper extremity (HCC) Expected: 01/04/2023, Expires: 12/27/[address] [facility] Work Phone: Comment on above: Expected: 01/04/2023 , Expires: 12/27/2023 Start: 12-28-2022 End: 12-27-2023 US ARM VEIN DVT UNL VAS LAB US ARM VEIN DVT UNL VAS LAB Vascular Lab Routine Acute deep vein thrombosis (DVT) of brachial vein of left upper extremity (HCC) Expected: 12/28/2022, Expires: 12/27/[address] [facility] Work Phone: Comment on above: Expected: 12/28/2022 , Expires: 12/27/2023 Start: 12-27-2022 End: 01-25-2024 US DVT UPPER LEFT US DVT UPPER LEFT Radiology Routine Acute deep vein thrombosis (DVT) of axillary vein of left upper extremity (HCC) Expected: 12/27/2022, Expires: 01/25/[address] [facility] Work Phone: Comment on above: Expected: 12/27/2022 , Expires: 01/25/2024 Start: 12-21-2022 Adult depression screening assessment DEPRESSION SCREENING [facility] Start: 11-22-2022 End: 01-22-2023 aPTT in Platelet poor plasma by Coagulation assay ACTIVATED PTT Lab Routine Preoperative testing Expected: 11/22/2022, Expires: 01/22/[address] [facility] Work Phone: Comment on above: Expected: 11/22/2022 , Expires: 01/22/2023 Start: 11-22-2022 End: 01-22-2023 CBC panel - Blood by Automated count CBC Lab Routine Preoperative testing Expected: 11/22/2022, Expires: 01/22/[address] [facility] Work Phone: Comment on above: Expected: 11/22/2022 , Expires: 01/22/2023 Start: 11-22-2022 End: 01-22-2023 Comprehensive metabolic 2000 panel - Serum or Plasma COMP METABOLIC PANEL Lab Routine Preoperative testing Expected: 11/22/2022, Expires: 01/22/[address] [facility] Work Phone: Comment on above: Expected: 11/22/2022 , Expires: 01/22/2023 Start: 11-22-2022 End: 01-22-2023 CONFIRM BLOOD TYPE CONFIRM BLOOD TYPE Blood Bank Routine Preoperative testing Expected: 11/22/2022, Expires: 01/22/[address] [facility] Work Phone: Comment on above: Expected: 11/22/2022 , Expires: 01/22/2023 Start: 11-22-2022 End: 11-18-2023 CTA HEAD W IVCON CTA HEAD W IVCON Radiology Routine Encounter for other preprocedural examination Partial symptomatic epilepsy with complex partial seizures, not intractable, without status epilepticus (HCC) Preoperative testing Expected: 11/22/2022, Expires: 11/18/[address] [facility] Work Phone: Comment on above: Expected: 11/22/2022 , Expires: 11/18/2023 Start: 11-22-2022 End: 01-22-2023 PT panel - Platelet poor plasma by Coagulation assay PROTHROMBIN TIME/PT Lab Routine Preoperative testing Expected: 11/22/2022, Expires: 01/22/[address] [facility] Work Phone: Comment on above: Expected: 11/22/2022 , Expires: 01/22/2023 Start: 11-22-2022 End: 04-17-2023 STAPH AUREUS PCR STAPH AUREUS PCR Lab Routine Preoperative testing Expected: 11/22/2022, Expires: 04/17/[address] [facility] Work Phone: Comment on above: Expected: 11/22/2022 , Expires: 04/17/2023 Start: 11-22-2022 End: 01-22-2023 TYPE AND SCREEN,30 DAY TYPE AND SCREEN,30 DAY Blood Bank Routine Preoperative testing Expected: 11/22/2022, Expires: 01/22/[address] [facility] Work Phone: Comment on above: Expected: 11/22/2022 , Expires: 01/22/2023 Start: 11-22-2022 End: 11-18-2023 Unlisted magnetic resonance procedure MRI BRAIN LOCALIZATION W IVCON Radiology Routine Encounter for other preprocedural examination Partial symptomatic epilepsy with complex partial seizures, not intractable, without status epilepticus (HCC) Preoperative testing Expected: 11/22/2022, Expires: 11/18/[address] [facility] Work Phone: Comment on above: Expected: 11/22/2022 , Expires: 11/18/2023 Start: 10-02-2022 CT of head without contrast CT head/brain wo con [facility] Start: 10-02-2022 CT Unspecified body region WO contrast [facility] Start: 10-02-2022 Bacteria identified in Urine by Culture [facility] Start: 09-29-2022 End: 11-29-2022 AUTOIMMUNE ENCEPHALOPATHY EVALUATION, SERUM AUTOIMMUNE ENCEPHALOPATHY EVALUATION, SERUM Lab Routine Partial symptomatic epilepsy with complex partial seizures, not intractable, without status epilepticus (HCC) Expected: 09/29/2022, Expires: 11/29/[address] [facility] [facility] Work Phone: Comment on above: Expected: 09/29/2022 , Expires: 11/29/2022 Start: 08-25-2022 Urine culture Urine Culture [facility] Start: 08-25-2022 Lamotrigine measurement [facility] Start: 07-15-2022 CT Abdomen and Pelvi s WO contrast [facility] Start: 07-15-2022 CT of abdomen and pe lvis without contrast CT abdomen pelvis wo [facility] Start: 07-11-2022 End: 09-10-2022 CBC panel - Blood by Automated count CBC Lab Routine Partial symptomatic epilepsy with complex partial seizures, not intractable, without status epilepticus (HCC) Expected: 07/11/2022, Expires: 09/10/[address] [facility] Work Phone: Comment on above: Expected: 07/11/2022 , Expires: 09/10/2022 Start: 07-11-2022 End: 09-10-2022 Comprehensive metabolic 2000 panel - Serum or Plasma COMP METABOLIC PANEL Lab Routine Partial symptomatic epilepsy with complex partial seizures, not intractable, without status epilepticus (HCC) Expected: 07/11/2022, Expires: 09/10/[address] [facility] Work Phone: Comment on above: Expected: 07/11/2022 , Expires: 09/10/2022 Start: 07-11-2022 End: 09-10-2022 lamoTRIgine [Mass/volume] in Serum or Plasma LAMOTRIGINE Lab Routine Partial symptomatic epilepsy with complex partial seizures, not intractable, without status epilepticus (HCC) Expected: 07/11/2022, Expires: 09/10/[address] [facility] Work Phone: Comment on above: Expected: 07/11/2022 , Expires: 09/10/2022 Start: 04-14-2022 Influenza vaccination C [facility] Start: 04-06-2022 End: 06-06-2022 lamoTRIgine [Mass/volume] in Serum or Plasma LAMOTRIGINE Lab Routine Partial symptomatic epilepsy with complex partial seizures, not intractable, without status epilepticus (HCC) Expected: 04/06/2022, Expires: 06/06/[address] [facility] Work Phone: Comment on above: Expected: 04/06/2022 , Expires: 06/06/2022 Start: 04-04-2022 End: 04-05-2022 Emergency department patient visit Departed Emergency [facility] Start: 02-10-2022 End: 04-12-2022 lamoTRIgine [Mass/volume] in Serum or Plasma LAMOTRIGINE Lab Routine Partial symptomatic epilepsy with complex partial seizures, not intractable, without status epilepticus (HCC) Expected: 02/10/2022, Expires: 04/12/[address] [facility] Work Phone: Comment on above: Expected: 02/10/2022 , Expires: 04/12/2022 Start: 2021 Urine microalbumin profile DTAP,TDAP,TD (1 - Tdap) [facility] Start: 08-14-2021 DEPRESSION ASSESSMENT DEPRESSION ASS ESSMENT [facility] Start: 12-23-2020 Meningococcal B Vacc ine: Consider Based On Risk (2 of 2 - Risk Bexsero 2-dose series) Meningococcal B Vaccine: Consider Based On Risk (2 of 2 - Risk Bexsero 2-dose series) [facility] Start: 12-23-2020 MENINGOCOCCAL B: Consider based on risk (2 of 2 - Risk Bexsero 2-dose series) MENINGOCOCCAL B: Consider based on risk (2 of 2 - Risk Bexsero 2-dose series) [facility] Start: 2020 CHLAMYDIA SCREENING (18-24) CHLAMYDIA SCREENING (18-24) [facility] Start: 2020 GC (GONORRHEA) SCREE GALINDO (18-24) GC (GONORRHEA) SCREENING (18-24) [facility] Start: 2020 HEPATITIS C SCREENING HEPATITIS C SC [facility] Start: 2020 Hepatitis C screening Hepatitis C Sc [facility] Start: 2020 HIV SCREENING HIV SCREENING [facility] Start: 2020 HIV screening HIV Screening [facility] Start: 2020 Screening for Chlamy nova trachomatis Chlamydia Screening (18) [facility] Start: 2016 PEDS TO ADULT TRANSI TION ANNUAL ASSESSMENT PEDS TO ADULT TRANSITION ANNUAL ASSESSMENT [facility] Start: 2014 PEDS TO ADULT TRANSI TION INITIAL DISCUSSION PEDS TO ADULT TRANSITION INITIAL DISCUSSION [facility] Start: 2013 HPV VACCINE (1 - 2-d ose series) HPV VACCINE (1 - 2-dose series) [facility] Start: 2012 MENINGOCOCCAL B: Consider based on risk (1 of 2 - Risk Bexsero 2-dose series) MENINGOCOCCAL B: Consider based on risk (1 of 2 - Risk Bexsero 2-dose series) [facility] Start: 10-15-2007 COVID-19 VACCINE (#1) COVID-19 VACCI NE (#1) [facility] Start: 05-31-2004 HEPATITIS B (3 of 3 - 3-dose series) HEPATITIS B (3 of 3 - 3-dose series) [facility] Start: 04-16-2003 COVID-19 VACCINE (#1) COVID-19 VACCI NE (#1) [facility] Start: 2002 HEPATITIS B (1 of 3 - 3-dose series) HEPATITIS B (1 of 3 - 3-dose series) [facility] Bacteria identified in Urine by Culture [facility] End: 10-20-2023 ECG COMPLETE ECG COMPLETE ECG Routine Preoperative testing 1 Occurrences starting 10/19/2022 until 10/20/[address] [facility] Work Phone: Comment on above: 1 Occurrences starti ng 10/19/2022 until 10/20/2023 End: 10-22-2023 ECG COMPLETE ECG COMPLETE ECG Routine Pre-op evaluation 1 Occurrences starting 10/21/2022 until 10/22/[address] [facility] Work Phone: Comment on above: 1 Occurrences starti ng 10/21/2022 until 10/22/2023 End: 11-19-2022 EPIL EEG LONG EPIL EEG LONG NEUROLOGY Routine Convulsions, unspecified convulsion type (HCC) 1 Occurrences starting 11/19/2021 until 11/19/[address] [facility] Work Phone: Comment on above: 1 Occurrences starti ng 11/19/2021 until 11/19/2022 End: 09-09-2023 EPIL EEG W PROCEDURE EPIL EEG W PROCEDURE NEUROLOGY Routine Partial symptomatic epilepsy with complex partial seizures, not intractable, without status epilepticus (HCC) 1 Occurrences starting 09/09/2022 until 09/09/[address] [facility] Work Phone: Comment on above: 1 Occurrences starti ng 09/09/2022 until 09/09/2023 End: 01-22-2023 Mri brain brain stem w/o contrast material MRI BRAIN WO IVCON Radiology Routine Partial symptomatic epilepsy with complex partial seizures, not intractable, without status epilepticus (HCC) 1 Occurrences starting 12/22/2021 until 01/22/[address] [facility] Work Phone: Comment on above: 1 Occurrences starti ng 12/22/2021 until 01/22/2023 End: 10-29-2023 Mri brain brain stem w/o contrast material MRI BRAIN WO IVCON Radiology Routine Partial symptomatic epilepsy with complex partial seizures, not intractable, without status epilepticus (HCC) 1 Occurrences starting 09/29/2022 until 10/29/[address] [facility] Work Phone: Comment on above: 1 Occurrences starti ng 09/29/2022 until 10/29/2023 End: 04-08-2024 Mri brain brain stem w/o contrast material MRI BRAIN WO IVCON Radiology Routine Partial symptomatic epilepsy with complex partial seizures, not intractable, without status epilepticus (HCC) S/P brain surgery 1 Occurrences starting 03/10/2023 until 04/08/[address] [facility] Work Phone: Comment on above: 1 Occurrences starti ng 03/10/2023 until 04/08/2024 Patient Education [facility] Work Phone: Patient referral [facility] Work Phone: REFER FOR ADMIT INTERVIEW REFER FOR ADMIT INTERVIEW Procedures Routine Preoperative testing Ordered: 10/19/[address] [facility] Work Phone: Comment on above: Ordered: 10/19/2022 REFER FOR ADMIT INTERVIEW REFER FOR ADMIT INTERVIEW Procedures Routine Preoperative examination Ordered: 01/10/[address] [facility] Work Phone: Comment on above: Ordered: 01/10/2023 [facility] CULTURE URINE [facility] CULTURE UR INE Lab Routine 09/14/2023 8:59 PM [facility] End: 02-09-2024 Unlisted magnetic resonance procedure MRI BRAIN LOCALIZATION WO IVCON Radiology Routine Encounter for other preprocedural examination Partial symptomatic epilepsy with complex partial seizures, not intractable, without status epilepticus (HCC) Preoperative examination 1 Occurrences starting 01/10/2023 until 02/09/[address] [facility] Work Phone: Comment on above: 1 Occurrences starti ng 01/10/2023 until 02/09/2024 End: 02-23-2025 XR Skull AP and Lateral XR SKULL 2V AP/LAT Radiology Routine Partial symptomatic epilepsy with complex partial seizures, not intractable, without status epilepticus (HCC) S/P brain surgery 1 Occurrences starting 01/25/2024 until 02/23/[address] [facility] Work Phone: Comment on above: 1 Occurrences starti ng 01/25/2024 until 02/23/2025 [facility] Immunizations Immunization Date Immunization Notes Care Provider Fa cili 02-17-2021 Human Papillomavirus 9-valent vaccine Tomas Morrison MD Work Phone: [facility] 11-25-2020 Human Papillomavirus 9-valent vaccine Tomas Morrison MD Work Phone: [facility] 11-25-2020 meningococcal B vacc ine, recombinant, OMV, adjuvanted Tomas Morrison MD Work Phone: [facility] 05-08-2020 meningococcal polysaccharide (groups A, C, Y and W-135) diphtheria toxoid conjugate vaccine (MCV4P) Tomas Morrison MD Work Phone: [facility] 02-23-2018 human papilloma viru s vaccine, quadrivalent Tomas Morrison MD Work Phone: [facility] 02-23-2018 meningococcal polysaccharide (groups A, C, Y and W-135) diphtheria toxoid conjugate vaccine (MCV4P) Tomas Morrison MD Work Phone: [facility] 04-10-2015 tetanus toxoid, redu siri diphtheria toxoid, and acellular pertussis vaccine, adsorbed Tomas Morrison MD Work Phone: [facility] 05-01-2008 diphtheria, tetanus toxoids and acellular pertussis vaccine Tomas Morrison MD Work Phone: [facility] 05-01-2008 measles, mumps and rubella virus vaccine Tomas Morrison MD Work Phone: [facility] 05-01-2008 varicella virus vaccine Laura Morrison MD Work Phone: [facility] 12-12-2005 diphtheria, tetanus toxoids and acellular pertussis vaccine Tomas Morrison MD Work Phone: [facility] 12-12-2005 pneumococcal conjuga te vaccine, 7 valpamela Morrison MD Work Phone: [facility] 12-12-2005 poliovirus vaccine, inactivated Tomas Morrison MD Work Phone: [facility] 06-17-2004 diphtheria, tetanus toxoids and acellular pertussis vaccine Tomas Morrison MD Work Phone: [facility] 06-17-2004 pneumococcal conjuga te vaccine, 7 valpamela Morrison MD Work Phone: [facility] 06-17-2004 poliovirus vaccine, inactivated Tomas Morrison MD Work Phone: [facility] 04-05-2004 diphtheria, tetanus toxoids and acellular pertussis vaccine Tomas Morrison MD Work Phone: [facility] 04-05-2004 haemophilus influenz ae type b conjugate and Hepatitis B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 Procedure (Routine) - Authorized Specialty Diagnoses / Procedures [facility]erred To Contact [facility] Diagnoses Partial symptomatic epilepsy with complex partial seizures, not intractable, without status epilepticus (HCC) Procedures EPIL EEG W PROCEDURE CARDIOVASCULAR FUNCTION EVAL W/TILT TABLE W/MNTR Claudio Michaels APRN.VENETIAN BLIND MACHINE OPERATOR [address] [place] [address] [place] [id number] Referral ID Status Reason Start Date Expiration Date Visits Requested Visits Authorized [id number] Authorized Auto-Generat ed Referral 09/09/2022 09/09/2023 1 1 [facility] for referral (narrative)* Outpatient Procedure (Routine) - Authorized Specialty Diagnoses / Procedures Referred By Contac t Ref[facility] Diagnoses Pre-op evaluation Procedures ECG COMPLETE ECG ROUTINE ECG W/LEAST 12 LDS W/I&R Christiano Nichols MD [address] [place] [address] [facility] [place] [address] [place] [address] Referral ID Status Reason Start Date Expiration Date Visits Requested Visits Authorized [id number] Authorized Auto-Generat ed Referral 10/21/2022 10/21/2023 1 1 [facility] for referral (narrative)* Diagnostic Procedure Only (Routine) - Pending Review Specialty Diagnoses / Procedures Referred By Contac t Referred To Contact US IMAGING Diagnoses Acute deep vein thrombosis (DVT) of axillary vein of left upper extremity (HCC) Procedures US DVT UPPER LEFT DUP-SCAN XTR VEINS UNILATERAL/LIMITED STUDY Evaristo Torres PA-C [address] [id number] [facility] Referral ID Status Reason Start Date Expiration Date Visits Requested Visits Authorized [id number] Pending Review Auto-Generat ed Referral 12/27/2022 01/25/2024 1 1 * Diagnostic Procedure Only (Routine) - Pending Review Specialty Diagnoses / Procedures Referred By Contac t Referred To Contact US IMAGING Diagnoses Acute deep vein thrombosis (DVT) of axillary vein of left upper extremity (HCC) Procedures US DVT UPPER LEFT DUP-SCAN XTR VEINS UNILATERAL/LIMITED STUDY Evaristo Torres PA-C [address] [place] [address] Us Imaging Referral ID Status Reason Start Date Expiration Date Visits Requested Visits Authorized [id number] Pending Review Auto-Generat ed Referral 01/06/2023 01/25/2024 1 1 [facility] for referral (narrative)* Outpatient Procedure (Routine) - Pending Review Specialty Diagnoses / Procedures Referred By Contac t Referred To Contact [facility] [place] Diagnoses Acute deep vein thrombosis (DVT) of brachial vein of left upper extremity (HCC) Procedures US ARM VEIN DVT UNL VAS LAB DUP-SCAN XTR VEINS UNILATERAL/LIMITED STUDY Sarabjit Son DO [address] [place] [phone] [facility] [place] [address] Referral ID Status Reason Start Date Expiration Date Visits Requested Visits Authorized [id number] Pending Review Auto-Generat ed Referral 01/04/2023 12/26/2023 1 1 * Outpatient Procedure (Routine) - Authorized Specialty Diagnoses / Procedures Referred By Contac t Referred To Contact [facility] [place] Diagnoses Acute deep vein thrombosis (DVT) of brachial vein of left upper extremity (HCC) Procedures US ARM VEIN DVT UNL VAS LAB DUP-SCAN XTR VEINS UNILATERAL/LIMITED STUDY Sarabjit Son DO [address] [place] [address] [place] [address] Referral ID Status Reason Start Date Expiration Date Visits Requested Visits Authorized [id number] Authorized Auto-Generat ed Referral 12/28/2022 12/26/2023 1 1 [facility] for referral (narrative)* Diagnostic Procedure Only (Routine) - Pending Review Specialty Diagnoses / Procedures Referred By Contac t Referred To Contact XR IMAGING Diagnoses Partial symptomatic epilepsy with complex partial seizures, not intractable, without status epilepticus (HCC) S/P brain surgery Procedures XR SKULL 2V AP/LAT RADIOLOGIC EXAMINATION SKULL 4< VIEWS Claudio Michaels, SALES CORRESPONDENT.VENETIAN BLIND MACHINE OPERATOR [address] [phone] Xr Imaging [place] [address] Referral ID Status Reason Start Date Expiration Date Visits Requested Visits Authorized [id number] Pending Review Auto-Generat ed Referral 01/25/2024 02/23/2025 1 1 [facility] N[facility]* Outpatient Procedure (Routine) - Closed Specialty Diagnoses / Procedures Referred By Andres angulo Referred To [facility] Diagnoses Partial symptomatic epilepsy with complex partial seizures, not intractable, without status epilepticus (HCC) Procedures EPIL ANA SPONTANEOUS BRAIN ACTIVTY MAGNETOENCEPHALOGRAPHY SPON BRAIN ACTIVITY Leena Greenberg PA-C [address] [place] [address] [address] Referral ID Status Reason Start Date Expiration Date V isits Requested Visits Authorized [id number] Closed Auto-Generate d Referral 08/30/2022 08/30/2023 1 1 [facility] Summary Purpose Family History No Family History [...] STEM W/O CONTRAST MATERIAL Robert Marin MD [address] [facility] [place] [address] Mr Imaging Referral ID Status Reason Start Date Expiration Date Visits Requested Visits Authorized [id number] Authorized Auto-Generat ed Referral 12/22/2021 02/05/2022 1 1 Referral ID Status Reason Start Date Expiration Date V isits Requested Visits Authorized [id number] Closed Auto-Generate d Referral 12/22/2021 02/05/2022 1 1 Specialty Diagnoses / Procedures Referred By Andres angulo Referred To Contact Robert Marin MD [address] [place] [address] Referral ID Status Reason Start Date Expiration Date Visits Re quested Visits Authorized [id number] Closed 1 1 Specialty Diagnoses / Procedures Referred By Edmarac t Referred To Contact Cardiology Diagnoses Partial symptomatic epilepsy with complex partial seizures, not intractable, without status epilepticus (HCC) Procedures CONSULT TO CARDIOLOGY OFFICE/OUTPATIENT NEW HIGH MDM 60-74 MINUTES Robert Marin MD [address] [place] [address] Referral ID Status Reason Start Date Expiration Date Visits Requested Visits Authorized [id number] Authorized PCP Requested Referral 03/28/2022 03/28/2023 1 1 Specialty Diagnoses / Procedures Referred By Andres t Referred To Contact MR IMAGING Diagnoses Partial symptomatic epilepsy with complex partial seizures, not intractable, without status epilepticus (HCC) Procedures MRI BRAIN FUNCTIONAL W PHYS WO IVCON MRI BRAIN FUNCTIONAL W/PHYSICIAN ADMNISTRATION TEST SELECT & ADMN FUNCTL BRAIN MAP PHYS/QHP Leena Greenberg PA-C [address] [place] [address] Mr Imaging Referral ID Status Reason Start Date Expiration Date V isits Requested Visits Authorized [id number] Closed Auto-Generate d Referral 08/30/2022 09/29/2023 1 1 Specialty Diagnoses / Procedures Referred By Andres t Referred To Contact MR IMAGING Diagnoses Partial symptomatic epilepsy with complex partial seizures, not intractable, without status epilepticus (HCC) Procedures MRI 3D POST PROCESSING 3D RENDERING W/INTERP&POSTPROC DIFF WORK STATION Leena Greenberg PA-C [address] [place] [address] Mr Imaging Referral ID Status Reason Start Date Expiration Date V isits Requested Visits Authorized [id number] Closed Auto-Generate d Referral 08/30/2022 09/29/2023 1 1 Referral ID Status Reason Start Date Expiration Date Visits Requested Visits Authorized [id number] Pending Review Auto-Generat ed Referral 09/29/2022 10/29/2023 1 1 Specialty Diagnoses / Procedures Referred By Contac t Referred To Contact Neurosurgery Diagnoses Partial symptomatic epilepsy with complex partial seizures, not intractable, without status epilepticus (HCC) Procedures CONSULT TO NEUROSURGERY OFFICE/OUTPATIENT [facility] 60-74 MINUTES Robert Marin MD [address] [place] [address] Referral ID Status Reason Start Date Expiration Date Visits Requested Visits Authorized [id number] Authorized PCP Requested Referral 10/12/2022 10/12/2023 1 1 Referral ID Status Reason Start Date Expiration Date V isits Requested Visits Authorized [id number] Closed Auto-Generate d Referral 09/29/2022 10/29/2023 1 1 Specialty Diagnoses / Procedures Referred By Andres t Referred To Contact MR IMAGING Diagnoses Encounter for other preprocedural examination Partial symptomatic epilepsy with complex partial seizures, not intractable, without status epilepticus (HCC) Preoperative testing Procedures MRI BRAIN LOCALIZATION W IVCON UNLISTED MAGNETIC RESONANCE PROCED Evaristo Torres PA-C [address] [id number] Mr Imaging Referral ID Status Reason Start Date Expiration Date Visits Requested Visits Authorized [id number] Pending Review Auto-Generat ed Referral 11/22/2022 11/18/2023 1 1 Specialty Diagnoses / Procedures Referred By Edmarac t Referred To Contact CT IMAGING Diagnoses Encounter for other preprocedural examination Partial symptomatic epilepsy with complex partial seizures, not intractable, without status epilepticus (HCC) Preoperative testing Procedures CTA HEAD W IVCON CT ANGIOGRAPHY HEAD W/CONTRAST/NONCONTRAST Evaristo Torres PA-C [id number] Imaging Referral ID Status Reason Start Date Expiration Date Visits Requested Visits Authorized [id number] Pending Review Auto-Generat ed Referral 11/22/2022 11/18/2023 1 1 Specialty Diagnoses / Procedures Referred By Edmarac t Referred To [facility] Diagnoses Preoperative testing Procedures ECG COMPLETE ECG ROUTINE ECG W/LEAST 12 LDS W/I&R Evaristo Torres PA-C [address] [place] [address] [facility] [place] [address] [place] [address] Referral ID Status Reason Start Date Expiration Date Visits Requested Visits Authorized [id number] Pending Review Auto-Generat ed Referral 10/19/2022 10/19/2023 1 1 Specialty Diagnoses / Procedures Referred By Contac t Referred To Contact Cardiology Diagnoses Preoperative testing Procedures CONSULT TO CARDIOLOGY OFFICE/OUTPATIENT [facility] MDM 60-74 MINUTES Evaristo Torres PA-C [address] [phone] Referral ID Status Reason Start Date Expiration Date Visits Requested Visits Authorized [id number] Authorized PCP Requested Referral 10/19/2022 10/19/2023 1 1 Referral ID Status Reason Start Date Expiration Date V isits Requested Visits Authorized [id number] Closed Auto-Generate d Referral 11/22/2022 11/18/2023 1 1 Referral ID Status Reason Start Date Expiration Date V isits Requested Visits Authorized [id number] Closed Auto-Generate d Referral 11/22/2022 11/18/2023 1 1 Specialty Diagnoses / Procedures Referred By Edmarac t Referred To Contact MR IMAGING Diagnoses Encounter for other preprocedural examination Partial symptomatic epilepsy with complex partial seizures, not intractable, without status epilepticus (HCC) Preoperative examination Procedures MRI BRAIN LOCALIZATION WO IVCON UNLISTED MAGNETIC RESONANCE PROCED Evaristo Torres PA-C [address] [id number] Mr Imaging Referral ID Status Reason Start Date Expiration Date Visits Requested Visits Authorized [id number] Pending Review Auto-Generat ed Referral 01/10/2023 02/09/2024 1 1 Specialty Diagnoses / Procedures Referred By Contac t Referred To Contact Diagnoses Partial symptomatic epilepsy with complex partial seizures, not intractable, without status epilepticus (HCC) Preoperative examination Procedures REFER TO PACC - PRE ANESTHESIA CONSULTATION CLINIC OFFICE/OUTPATIENT [facility] 60-74 MINUTES Evaristo Torres PA-C [address] [place] [address] Referral ID Status Reason Start Date Expiration Date Visits Requested Visits Authorized [id number] Authorized PCP Requested Referral 01/10/2023 01/10/2024 1 1 Specialty Diagnoses / Procedures Referred By Edmarac t Referred To Contact MR IMAGING Diagnoses Encounter for other preprocedural examination Partial symptomatic epilepsy with complex partial seizures, not intractable, without status epilepticus (HCC) Preoperative examination Procedures MRI BRAIN LOCALIZATION WO IVCON UNLISTED MAGNETIC RESONANCE PROCED MRI BRAIN BRAIN STEM W/O CONTRAST MATERIAL Evaristo Torres PA-C [address] [place] [address] Mr Imaging Referral ID Status Reason Start Date Expiration Date V isits Requested Visits Authorized [id number] Closed Auto-Generat ed Referral Patient Cleared - Admin/Chairm an/Director advise to proceed 01/10/2023 02/09/2024 1 1 Specialty Diagnoses / [facility] MR [facility] Diagnoses Partial symptomatic epilepsy with complex partial seizures, not intractable, without status epilepticus (HCC) S/P brain surgery Procedures MRI BRAIN WO IVCON MRI BRAIN BRAIN STEM W/O CONTRAST MATERIAL Claudio Michaels, SALES CORRESPONDENT.[employer] OPERATOR [address] [phone] Mr Imaging Referral ID Status Reason Start Date Expiration Date Visits Requested Visits Authorized [id number] Pending Review Auto-Generat ed Referral 03/10/2023 04/08/2024 1 1 Specialty Diagnoses / Procedures Referred By Edmarac t Referred To Contact MR IMAGING Diagnoses Partial symptomatic epilepsy with complex partial seizures, not intractable, without status epilepticus (HCC) S/P brain surgery Procedures MRI BRAIN WO IVCON MRI BRAIN BRAIN STEM W/O CONTRAST MATERIAL Claudio Michaels, SALES CORRESPONDENT.VENETIAN BLIND MACHINE OPERATOR [address] [place] [address] Mr Imaging [address] [id number] Referral ID Status Reason Start Date Expiration Date V isits Requested Visits Authorized [id number] Closed Auto-Generate d Referral 03/10/2023 04/08/2024 1 1 Specialty Diagnoses / Procedures Referred By Andres t Referred To Contact Diagnoses Partial symptomatic epilepsy with complex partial seizures, not intractable, 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) Procedures CONSULT TO PSYCHIATRY OFFICE/OUTPATIENT [facility] 60-74 MINUTES Robert Marin MD [address] [place] [address] Referral ID Status Reason Start Date Expiration Date Visits Requested Visits Authorized [id number] Pending Review PCP Requested Referral 3 07/23/2024 1 1 Specialty Diagnoses / Procedures Referred By Andres t Referred To Contact Diagnoses Partial symptomatic epilepsy with complex partial seizures, not intractable, without status epilepticus (HCC) Procedures CONSULT TO MEDICAL GENETICS - GENERAL OFFICE/OUTPATIENT [facility] 60 MINUTES MEDICAL GENETICS COUNSELING EACH 30 MINUTES Robert Marin MD [address] [place] [address] [facility] [place] [address] [place] [id number] Referral ID Status Reason Start Date Expiration Date Visits Requested Visits Authorized [id number] Authorized PCP Requested Referral Auto-Generate d Referral [...] section and content) DATE CREATED AUTHOR 07/22/2021 [facility] d[facility] Specialist DATE CREATED AUTHOR AUTHOR'S ORGANIZ ATION 01/07/2022 [facility] DATE CREATED AUTHOR AUTHOR'S ORGANIZ ATION 12/12/2023 [facility] DATE CREATED AUTHOR AUTHOR'S ORGANIZ ATION 03/30/2024 [facility] Special[facility] DATE CREATED AUTHOR AUTHOR'S ORGANIZ ATION 04/07/2024 [facility] DATE CREATED AUTHOR AUTHOR'S STEPHANIE RIZVI 08/03/2024 [facility] Comments (unrecognize d section and content) In the event this informatio n is protected by the Federal Confidentiality of Alcohol and Drug Abuse Patient Records regulations: The Federal rules restrict any use of the information to criminally investigate or prosecute any alcohol or drug abuse patient.[facility] HealthcareIn the event this information is protected by the Federal Confidentiality of Alcohol and Drug Abuse Patient Records regulations: The Federal rules restrict any use of the information to criminally investigate or prosecute any alcohol or drug abuse patient.[facility] HealthcareIn the event this information is protected by the Federal Confidentiality of Alcohol and Drug Abuse Patient Records regulations: The Federal rules restrict any use of the information to criminally investigate or prosecute any alcohol or drug abuse patient.[facility] HealthcareIn the event this information is protected by the Federal Confidentiality of Alcohol and Drug Abuse Patient Records regulations: The Federal rules restrict any use of the information to criminally investigate or prosecute any alcohol or drug abuse patient.[facility] HealthcareIn the event this information is protected by the Federal Confidentiality of Alcohol and Drug Abuse Patient Records regulations: The Federal rules restrict any use of the information to criminally investigate or prosecute any alcohol or drug abuse patient.[facility] HealthcareIn the event this information is protected by the Federal Confidentiality of Alcohol and Drug Abuse Patient Records regulations: The Federal rules restrict any use of the information to criminally investigate or prosecute any alcohol or drug abuse patient.[facility] HealthcareIn the event this information is protected by the Federal Confidentiality of Alcohol and Drug Abuse Patient Records regulations: The Federal rules restrict any use of the information to criminally investigate or prosecute any alcohol or drug abuse patient.[facility] HealthcareIn the event this information is protected by the Federal Confidentiality of Alcohol and Drug Abuse Patient Records regulations: The Federal rules restrict any use of the information to criminally investigate or prosecute any alcohol or drug abuse patient.[facility] HealthcareIn the event this information is protected by the Federal Confidentiality of Alcohol and Drug Abuse Patient Records regulations: The Federal rules restrict any use of the information to criminally investigate or prosecute any alcohol or drug abuse patient.[facility] HealthcareIn the event this information is protected by the Federal Confidentiality of Alcohol and Drug Abuse Patient Records regulations: The Federal rules restrict any use of the information to criminally investigate or prosecute any alcohol or drug abuse patient.[facility] HealthcareIn the event this information is protected by the Federal Confidentiality of Alcohol and Drug Abuse Patient Records regulations: The Federal rules restrict any use of the information to criminally investigate or prosecute any alcohol or drug abuse patient.[facility] HealthcareIn the event this information is protected by the Federal Confidentiality of Alcohol and Drug Abuse Patient Records regulations: The Federal rules restrict any use of the information to criminally investigate or prosecute any alcohol or drug abuse patient.[facility] HealthcareIn the event this information is protected by the Federal Confidentiality of Alcohol and Drug Abuse Patient Records regulations: The Federal rules restrict any use of the information to criminally investigate or prosecute any alcohol or drug abuse patient.[facility] HealthcareIn the event this information is protected by the Federal Confidentiality of Alcohol and Drug Abuse Patient Records regulations: The Federal rules restrict any use of the information to criminally investigate or prosecute any alcohol or drug abuse patient.[facility] HealthcareIn the event this information is protected by the Federal Confidentiality of Alcohol and Drug Abuse Patient Records regulations: The Federal rules restrict any use of the information to criminally investigate or prosecute any alcohol or drug abuse patient.[facility] HealthcareIn the event this information is protected by the Federal Confidentiality of Alcohol and Drug Abuse Patient Records regulations: The Federal rules restrict any use of the information to criminally investigate or prosecute any alcohol or drug abuse patient.[facility] HealthcareIn the event this information is protected by the Federal Confidentiality of Alcohol and Drug Abuse Patient Records regulations: The Federal rules restrict any use of the information to criminally investigate or prosecute any alcohol or drug abuse patient.[facility] HealthcareIn the event this information is protected by the Federal Confidentiality of Alcohol and Drug Abuse Patient Records regulations: The Federal rules restrict any use of the information to criminally investigate or prosecute any alcohol or drug abuse patient.[facility] HealthcareIn the event this information is protected by the Federal Confidentiality of Alcohol and Drug Abuse Patient Records regulations: The Federal rules restrict any use of the information to criminally investigate or prosecute any alcohol or drug abuse patient.[facility] HealthcareIn the event this information is protected by the Federal Confidentiality of Alcohol and Drug Abuse Patient Records regulations: The Federal rules restrict any use of the information to criminally investigate or prosecute any alcohol or drug abuse patient.[facility] HealthcareIn the event this information is protected by the Federal Confidentiality of Alcohol and Drug Abuse Patient Records regulations: The Federal rules restrict any use of the information to criminally investigate or prosecute any alcohol or drug abuse patient.[facility] HealthcareIn the event this information is protected by the Federal Confidentiality of Alcohol and Drug Abuse Patient Records regulations: The Federal rules restrict any use of the information to criminally investigate or prosecute any alcohol or drug abuse patient.[facility] HealthcareIn the event this information is protected by the Federal Confidentiality of Alcohol and Drug Abuse Patient Records regulations: The Federal rules restrict any use of the information to criminally investigate or prosecute any alcohol or drug abuse patient.[facility] HealthcareIn the event this information is protected by the Federal Confidentiality of Alcohol and Drug Abuse Patient Records regulations: The Federal rules restrict any use of the information to criminally investigate or prosecute any alcohol or drug abuse patient.[facility] HealthcareIn the event this information is protected by the Federal Confidentiality of Alcohol and Drug Abuse Patient Records regulations: The Federal rules restrict any use of the information to criminally investigate or prosecute any alcohol or drug abuse patient.[facility] HealthcareIn the event this information is protected by the Federal Confidentiality of Alcohol and Drug Abuse Patient Records regulations: The Federal rules restrict any use of the information to criminally investigate or prosecute any alcohol or drug abuse patient.[facility] HealthcareIn the event this information is protected by the Federal Confidentiality of Alcohol and Drug Abuse Patient Records regulations: The Federal rules restrict any use of the information to criminally investigate or prosecute any alcohol or drug abuse patient.[facility] HealthcareIn the event this information is protected by the Federal Confidentiality of Alcohol and Drug Abuse Patient Records regulations: The Federal rules restrict any use of the information to criminally investigate or prosecute any alcohol or drug abuse patient.[facility] HealthcareIn the event this information is protected by the Federal Confidentiality of Alcohol and Drug Abuse Patient Records regulations: The Federal rules restrict any use of the information to criminally investigate or prosecute any alcohol or drug abuse patient.[facility] HealthcareIn the event this information is protected by the Federal Confidentiality of Alcohol and Drug Abuse Patient Records regulations: The Federal rules restrict any use of the information to criminally investigate or prosecute any alcohol or drug abuse patient.[facility] HealthcareIn the event this information is protected by the Federal Confidentiality of Alcohol and Drug Abuse Patient Records regulations: The Federal rules restrict any use of the information to criminally investigate or prosecute any alcohol or drug abuse patient.[facility] HealthcareIn the event this information is protected by the Federal Confidentiality of Alcohol and Drug Abuse Patient Records regulations: The Federal rules restrict any use of the information to criminally investigate or prosecute any alcohol or drug abuse patient.[facility] HealthcareIn the event this information is protected by the Federal Confidentiality of Alcohol and Drug Abuse Patient Records regulations: The Federal rules restrict any use of the information to criminally investigate or prosecute any alcohol or drug abuse patient.[facility] HealthcareIn the event this information is protected by the Federal Confidentiality of Alcohol and Drug Abuse Patient Records regulations: The Federal rules restrict any use of the information to criminally investigate or prosecute any alcohol or drug abuse patient.[facility] HealthcareIn the event this information is protected by the Federal Confidentiality of Alcohol and Drug Abuse Patient Records regulations: The Federal rules restrict any use of the information to criminally investigate or prosecute any alcohol or drug abuse patient.[facility] HealthcareIn the event this information is protected by the Federal Confidentiality of Alcohol and Drug Abuse Patient Records regulations: The Federal rules restrict any use of the information to criminally investigate or prosecute any alcohol or drug abuse patient.[facility] HealthcareIn the event this information is protected by the Federal Confidentiality of Alcohol and Drug Abuse Patient Records regulations: The Federal rules restrict any use of the information to criminally investigate or prosecute any alcohol or drug abuse patient.[facility] HealthcareIn the event this information is protected by the Federal Confidentiality of Alcohol and Drug Abuse Patient Records regulations: The Federal rules restrict any use of the information to criminally investigate or prosecute any alcohol or drug abuse patient.[facility] HealthcareIn the event this information is protected by the Federal Confidentiality of Alcohol and Drug Abuse Patient Records regulations: The Federal rules restrict any use of the information to criminally investigate or prosecute any alcohol or drug abuse patient.[facility] HealthcareIn the event this information is protected by the Federal Confidentiality of Alcohol and Drug Abuse Patient Records regulations: The Federal rules restrict any use of the information to criminally investigate or prosecute any alcohol or drug abuse patient.[facility] HealthcareIn the event this information is protected by the Federal Confidentiality of Alcohol and Drug Abuse Patient Records regulations: The Federal rules restrict any use of the information to criminally investigate or prosecute any alcohol or drug abuse patient.[facility] HealthcareIn the event this information is protected by the Federal Confidentiality of Alcohol and Drug Abuse Patient Records regulations: The Federal rules restrict any use of the information to criminally investigate or prosecute any alcohol or drug abuse patient.[facility] HealthcareIn the event this information is protected by the Federal Confidentiality of Alcohol and Drug Abuse Patient Records regulations: The Federal rules restrict any use of the information to criminally investigate or prosecute any alcohol or drug abuse patient.[facility] HealthcareIn the event this information is protected by the Federal Confidentiality of Alcohol and Drug Abuse Patient Records regulations: The Federal rules restrict any use of the information to criminally investigate or prosecute any alcohol or drug abuse patient.[facility] HealthcareIn the event this information is protected by the Federal Confidentiality of Alcohol and Drug Abuse Patient Records regulations: The Federal rules restrict any use of the information to criminally investigate or prosecute any alcohol or drug abuse patient.[facility] HealthcareIn the event this information is protected by the Federal Confidentiality of Alcohol and Drug Abuse Patient Records regulations: The Federal rules restrict any use of the information to criminally investigate or prosecute any alcohol or drug abuse patient.[facility] HealthcareIn the event this information is protected by the Federal Confidentiality of Alcohol and Drug Abuse Patient Records regulations: The Federal rules restrict any use of the information to criminally investigate or prosecute any alcohol or drug abuse patient.[facility] HealthcareIn the event this information is protected by the Federal Confidentiality of Alcohol and Drug Abuse Patient Records regulations: The Federal rules restrict any use of the information to criminally investigate or prosecute any alcohol or drug abuse patient.[facility] HealthcareIn the event this information is protected by the Federal Confidentiality of Alcohol and Drug Abuse Patient Records regulations: The Federal rules restrict any use of the information to criminally investigate or prosecute any alcohol or drug abuse patient.[facility] HealthcareIn the event this information is protected by the Federal Confidentiality of Alcohol and Drug Abuse Patient Records regulations: The Federal rules restrict any use of the information to criminally investigate or prosecute any alcohol or drug abuse patient.[facility] HealthcareIn the event this information is protected by the Federal Confidentiality of Alcohol and Drug Abuse Patient Records regulations: The Federal rules restrict any use of the information to criminally investigate or prosecute any alcohol or drug abuse patient.[facility] HealthcareIn the event this information is protected by the Federal Confidentiality of Alcohol and Drug Abuse Patient Records regulations: The Federal rules restrict any use of the information to criminally investigate or prosecute any alcohol or drug abuse patient.[facility] HealthcareIn the event this information is protected by the Federal Confidentiality of Alcohol and Drug Abuse Patient Records regulations: The Federal rules restrict any use of the information to criminally investigate or prosecute any alcohol or drug abuse patient.[facility] HealthcareIn the event this information is protected by the Federal Confidentiality of Alcohol and Drug Abuse Patient Records regulations: The Federal rules restrict any use of the information to criminally investigate or prosecute any alcohol or drug abuse patient.[facility] HealthcareIn the event this information is protected by the Federal Confidentiality of Alcohol and Drug Abuse Patient Records regulations: The Federal rules restrict any use of the information to criminally investigate or prosecute any alcohol or drug abuse patient.[facility] HealthcareIn the event this information is protected by the Federal Confidentiality of Alcohol and Drug Abuse Patient Records regulations: The Federal rules restrict any use of the information to criminally investigate or prosecute any alcohol or drug abuse patient.[facility] HealthcareIn the event this information is protected by the Federal Confidentiality of Alcohol and Drug Abuse Patient Records regulations: The Federal rules restrict any use of the information to criminally investigate or prosecute any alcohol or drug abuse patient.[facility] HealthcareIn the event this information is protected by the Federal Confidentiality of Alcohol and Drug Abuse Patient Records regulations: The Federal rules restrict any use of the information to criminally investigate or prosecute any alcohol or drug abuse patient.[facility] HealthcareIn the event this information is protected by the Federal Confidentiality of Alcohol and Drug Abuse Patient Records regulations: The Federal rules restrict any use of the information to criminally investigate or prosecute any alcohol or drug abuse patient.[facility] HealthcareIn the event this information is protected by the Federal Confidentiality of Alcohol and Drug Abuse Patient Records regulations: The Federal rules restrict any use of the information to criminally investigate or prosecute any alcohol or drug abuse patient.[facility] HealthcareIn the event this information is protected by the Federal Confidentiality of Alcohol and Drug Abuse Patient Records regulations: The Federal rules restrict any use of the information to criminally investigate or prosecute any alcohol or drug abuse patient.Uk HealthcareIn the event this information is protected by the Federal Confidentiality of Alcohol and Drug Abuse Patient Records regulations: The Federal rules restrict any use of the information to criminally investigate or prosecute any alcohol or drug abuse patient.Uk HealthcareIn the event this information is protected by the Federal Confidentiality of Alcohol and Drug Abuse Patient Records regulations: The Federal rules restrict any use of the information to criminally investigate or prosecute any alcohol or drug abuse patient.Uk HealthcareIn the event this information is protected by the Federal Confidentiality of Alcohol and Drug Abuse Patient Records regulations: The Federal rules restrict any use of the information to criminally investigate or prosecute any alcohol or drug abuse patient.Uk HealthcareIn the event this information is protected by the Federal Confidentiality of Alcohol and Drug Abuse Patient Records regulations: The Federal rules restrict any use of the information to criminally investigate or prosecute any alcohol or drug abuse patient.Uk HealthcareIn the event this information is protected by the Federal Confidentiality of Alcohol and Drug Abuse Patient Records regulations: The Federal rules restrict any use of the information to criminally investigate or prosecute any alcohol or drug abuse patient.Uk HealthcareIn the event this information is protected by the Federal Confidentiality of Alcohol and Drug Abuse Patient Records regulations: The Federal rules restrict any use of the information to criminally investigate or prosecute any alcohol or drug abuse patient.Uk HealthcareIn the event this information is protected by the Federal Confidentiality of Alcohol and Drug Abuse Patient Records regulations: The Federal rules restrict any use of the information to criminally investigate or prosecute any alcohol or drug abuse patient.Uk HealthcareIn the event this information is protected by the Federal Confidentiality of Alcohol and Drug Abuse Patient Records regulations: The Federal rules restrict any use of the information to criminally investigate or prosecute any alcohol or drug abuse patient.Uk HealthcareIn the event this information is protected by the Federal Confidentiality of Alcohol and Drug Abuse Patient Records regulations: The Federal rules restrict any use of the information to criminally investigate or prosecute any alcohol or drug abuse patient.Uk HealthcareIn the event this information is protected by the Federal Confidentiality of Alcohol and Drug Abuse Patient Records regulations: The Federal rules restrict any use of the information to criminally investigate or prosecute any alcohol or drug abuse patient.[facility] Care Teams (unrecognized sec tion and content) Team Status: Active Member Role Status Dates Remi Andrew MD Primary Care Provider Active Team Status: Inactive Member Role Status Dates Remi Andrew MD Primary Care Provider Active Feng Barlow PA-C Emergency Provider Active Acid Cutter Relationship Specialty Start Date End Date Remi Andrew MD [address] [place] [address] PCP - General Family Practice 10/19/16 Acid Cutter Relationship Specialty Start Date End Date Remi Andrew MD [address] [place] [phone] PCP - General Family Practice 10/19/16 Acid Cutter Relationship Specialty Start Date End Date Remi Andrew MD [address] [place] [address] PCP - General Family Practice 10/19/16 Acid Cutter Relationship Specialty Start Date End Date Remi Andrew MD [address] [place] [place] [address] PCP - General Family Practice 10/19/16 Acid Cutter Relationship Specialty Start Date End Date Remi Andrew MD [address] [place] [place] [address] PCP - General Family Practice 10/19/16 Acid Cutter Relationship Specialty Start Date End Date Remi Andrew MD [address] [place] [place] [address] PCP - General Family Practice 10/19/16 Acid Cutter Relationship Specialty Start Date End Date Remi Andrew MD [address] [place] [address] PCP - General Family Practice 10/19/16 Acid Cutter Relationship Specialty Start Date End Date Remi Andrew MD [address] [place] [place] [address] PCP - General Family Practice 10/19/16 Acid Cutter Relationship Specialty Start Date End Date Remi Andrew MD [address] [place] [address] PCP - General Family Practice 10/19/16 Acid Cutter Relationship Specialty Start Date End Date Remi Andrew MD [address] [place] [phone] PCP - General Family Practice 10/19/16 Team Status: Inactive Member Role Status Dates Remi Andrew MD Primary Care Provider Active ELANA Melchor- Emergency Provider Active Gonzales Mayes DO RES [...] Active Brando Guy DO Emergency Provider Active Acid Cutter Relationship Specialty Start Date End Date Remi Andrew MD [address] [place] [address] PCP - General Family Practice 10/19/16 Acid Cutter Relationship Specialty Start Date End Date Remi Andrew MD [address] [place] [address] PCP - General Family Medicine 10/19/16 Acid Cutter Relationship Specialty Start Date End Date Remi Andrew MD [address] [place] [address] PCP - General Family Medicine 10/19/16 Acid Cutter Relationship Specialty Start Date End Date Remi Andrew MD [address] [place] [address] PCP - General Family Medicine 10/19/16 Team Status: Inactive Member Role Status Dates Remi Andrew MD Primary Care Provider Active Sedrick Pina Jr, MD Emergency Provider Active Team Status: Inactive Member Role Status Dates Remi Andrew MD Primary Care Provider Active Madiha Funk PA-C Emergency Provider Active Acid Cutter Relationship Specialty Start Date End Date Remi Andrew MD [address] [place] [address] PCP - General Family Medicine 10/19/16 Acid Cutter Relationship Specialty Start Date End Date Remi Andrew MD [address] [place] [address] PCP - General Family Medicine 10/19/16 Acid Cutter Relationship Specialty Start Date End Date Remi Andrew MD [address] [place] [place] [address] PCP - General Family Medicine 10/19/16 Acid Cutter Relationship Specialty Start Date End Date Remi Andrew MD [address] [place] [address] PCP - General Family Medicine 10/19/16 Acid Cutter Relationship Specialty Start Date End Date Remi Andrew MD [address] [place] [address] PCP - General Family Medicine 10/19/16 Acid Cutter Relationship Specialty Start Date End Date Remi Andrew MD [address] [place] [address] PCP - General Family Medicine 10/19/16 Acid Cutter Relationship Specialty Start Date End Date Remi Andrew MD [address] [place] [address] PCP - General Family Medicine 10/19/16 Acid Cutter Relationship Specialty Start Date End Date Remi Andrew MD [address] [place] [address] PCP - General Family Medicine 10/19/16 Team Status: Inactive Member Role Status Dates Remi Andrew MD Primary Care Provider Active Shashi Ornelas DO Emergency Provider Active Acid Cutter Relationship Specialty Start Date End Date Remi Andrew MD [address] [place] [address] PCP - General Family Medicine 10/19/16 Acid Cutter Relationship Specialty Start Date End Date Remi Andrew MD [address] [place] [phone] PCP - General Family Medicine 10/19/16 Acid Cutter Relationship Specialty Start Date End Date Remi Andrew MD [address] [place] [address] PCP - General Family Medicine 10/19/16 Acid Cutter Relationship Specialty Start Date End Date Remi Andrew MD [address] [place] [address] PCP - General Family Medicine 10/19/16 Acid Cutter Relationship Specialty Start Date End Date Remi Andrew MD [address] [place] [address] PCP - General Family Medicine 10/19/16 Acid Cutter Relationship Specialty Start Date End Date Remi Andrew MD [address] [place] [address] PCP - General Family Medicine 10/19/16 Acid Cutter Relationship Specialty Start Date End Date Remi Andrew MD [address] [place] [address] PCP - General Family Medicine 10/19/16 Acid Cutter Relationship Specialty Start Date End Date Remi Andrew MD [address] [place] [address] PCP - General Family Medicine 10/19/16 Acid Cutter Relationship Specialty Start Date End Date Remi Andrew MD [address] [place] [address] PCP - General Family Medicine 10/19/16 Acid Cutter Relationship Specialty Start Date End Date Remi Andrew MD [address] [place] [address] PCP - General Family Medicine 10/19/16 Acid Cutter Relationship Specialty Start Date End Date Remi Andrew MD [address] [place] [address] PCP - General Family Medicine 10/19/16 Acid Cutter Relationship Specialty Start Date End Date Remi Andrew MD [address] [place] [phone] PCP - General Family Medicine 10/19/16 Acid Cutter Relationship Specialty Start Date End Date Remi Andrew MD [address] [place] [address] PCP - General Family Medicine 10/19/16 Acid Cutter Relationship Specialty Start Date End Date Remi Andrew MD [address] [place] [address] PCP - General Family Medicine 10/19/16 Acid Cutter Relationship Specialty Start Date End Date Remi Andrew MD [address] [place] [address] PCP - General Family Medicine 10/19/16 Acid Cutter Relationship Specialty Start Date End Date Remi Andrew MD [address] [place] [address] PCP - General Family Medicine 10/19/16 Acid Cutter Relationship Specialty Start Date End Date Remi Andrew MD [address] [place] [address] PCP - General Family Medicine 10/19/16 Acid Cutter Relationship Specialty Start Date End Date Remi Andrew MD [address] [place] [address] PCP - General Family Medicine 10/19/16 Acid Cutter Relationship Specialty Start Date End Date Remi Andrew MD [address] [place] [address] PCP - General Family Medicine 10/19/16 Acid Cutter Relationship Specialty Start Date End Date Remi Andrew MD [address] [place] [address] PCP - General Family Medicine 10/19/16 Acid Cutter Relationship Specialty Start Date End Date Remi Andrew MD [address] [place] [address] PCP - General Family Medicine 10/19/16 Acid Cutter Relationship Specialty Start Date End Date Remi Andrew MD [address] [place] [address] PCP - General Family Medicine 10/19/16 Acid Cutter Relationship Specialty Start Date End Date Remi Andrew MD [address] [place] [address] PCP - General Family Medicine 10/19/16 Acid Cutter Relationship Specialty Start Date End Date Remi Andrew MD [address] [place] [address] PCP - General Family Medicine 10/19/16 Acid Cutter Relationship Specialty Start Date End Date Remi Andrew MD [address] [place] [address] PCP - General Family Medicine 10/19/16 Acid Cutter Relationship Specialty Start Date End Date Remi Andrew MD [address] [place] [address] PCP - General Family Medicine 10/19/16 Acid Cutter Relationship Specialty Start Date End Date Remi Andrew MD [address] [place] [place] [address] PCP - General Family Medicine 10/19/16 Acid Cutter Relationship Specialty Start Date End Date Jessa Robles NP [address] [facility] [address] [place] [address] PCP - Medical [employer] 01/12/23 Remi Andrew MD [address] [place] [place] [address] PCP - General Family Medicine 12/20/22 Acid Cutter Relationship Specialty Start Date End Date Jessa Robles NP [address] [facility] [address] [place] [address] PCP - Medical [employer] 01/12/23 Remi Andrew MD [address] [place] [address] PCP - General Family Medicine 12/20/22 Acid Cutter Relationship Specialty Start Date End Date Jessa Robles NP [address] [place] [address] [place] [address] PCP - Medical [employer] 01/12/23 Remi Andrew MD [address] [place] [address] PCP - General Family Medicine 12/20/22 Acid Cutter Relationship Specialty Start Date End Date Remi Andrew MD [address] [place] [address] PCP - General Family Medicine 10/19/16 Acid Cutter Relationship Specialty Start Date End Date Remi Andrew MD [address] [place] [address] PCP - General Family Medicine 10/19/16 Team Status: Inactive Member Role Status Dates Remi Andrew MD Primary Care Provide r, Attending Provider Active Start: March 28, 2024 End: March 28, 2024 Acid Cutter Relationship Specialty Start Date End Date Remi Andrew MD [address] [place] [address] PCP - General Family Medicine 10/19/16 Acid Cutter Relationship Specialty Start Date End Date Remi Andrew MD [address] [place] [address] PCP - General Family Medicine 10/19/16 Acid Cutter Relationship Specialty Start Date End Date Remi Andrew MD [address] [place] [address] PCP - General Family Medicine 10/19/16 Acid Cutter Relationship Specialty Start Date End Date Remi Andrew MD [address] [place] [address] PCP - General Family Medicine 12/20/22 Sergei Harrison DO [address] [facility] [address] [facility] PCP - Medical [employer] 04/01/20 08/13/99 Essence Patel NP [address] [place] [address] Nurse Practitioner Family Medicine 01/04/24 Christie Aldana NP [address] [place] [address] Nurse Practitioner Family Medicine 01/04/24 Acid Cutter Relationship Specialty Start Date End Date Remi Andrew MD [address] [place] [address] PCP - General Family Medicine 10/19/16 Acid Cutter Relationship Specialty Start Date End Date Remi Andrew MD [address] [place] [phone] PCP - General Family Medicine 12/20/22 Sergei Harrison DO [address] [place] [facility] [address] [place] [address] PCP - Medical [employer] 04/01/20 08/13/99 Essence Patel NP [address] [place] [address] Nurse Practitioner Family Medicine 01/04/24 Christie Aldana NP [address] [place] [address] Nurse Practitioner [facility] 01/04/24 Acid Cutter Relationship Specialty Start Date End Date Remi Andrew MD [address] [place] [address] PCP - General [facility] Medicine 10/19/16 Acid Cutter Relationship Specialty Start Date End Date Remi Andrew MD [address] [place] [address] PCP - General Family Medicine 10/19/16 Reason for Visit (unrecogniz ed section and content) Reason Comments New Patient Reason Comments medication concern vimpat issues Specialty Diagnoses / Procedures Referred By [facility] Referred To Contact MR IMAGING Diagnoses Partial symptomatic epilepsy with complex partial seizures, not intractable, without status epilepticus (HCC) Procedures MRI BRAIN WO IVCON MRI BRAIN BRAIN STEM W/O CONTRAST MATERIAL Robert Marin MD [address] [place] [address] Mr Imaging Referral ID Status Reason Start Date Expiration Date V isits Requested Visits Authorized [id number] Closed Auto-Generate d Referral 12/22/2021 02/05/2022 1 [...] (zio) Reason Comments Follow Up Reason Comments Forms [facility] Reason Comments Informed Consent IRB [id number] Reason Comments Nm Pet Request Reason Comments Medication Problem Possible side effect s to medication Reason Comments Radiology MRI Specialty Diagnoses / Procedures [facility] Referred To Contact MR IMAGING Diagnoses Partial symptomatic epilepsy with complex partial seizures, not intractable, without status epilepticus (HCC) Procedures MRI BRAIN FUNCTIONAL W PHYS WO IVCON MRI BRAIN FUNCTIONAL W/PHYSICIAN ADMNISTRATION TEST SELECT & ADMN FUNCTL BRAIN MAP PHYS/QHP Leena Greenberg PA-C [address] [place] [address] Mr Imaging Referral ID Status Reason Start Date Expiration Date V isits Requested Visits Authorized [id number] Closed Auto-Generate d Referral 08/30/2022 09/29/2023 1 1 Reason Comments Epilepsy Management Conference Reason Comments Follow Up Established Patient Reason Comments New Patient Specialty Diagnoses / Procedures Referred By Contac t Referred To Contact Neurosurgery Diagnoses Partial symptomatic epilepsy with complex partial seizures, not intractable, without status epilepticus (HCC) Procedures CONSULT TO NEUROSURGERY OFFICE/OUTPATIENT NEW HIGH MDM 60-74 MINUTES Robert Marin MD [address] [place] [address] Referral ID Status Reason Start Date Expiration Date V isits Requested Visits Authorized [id number] Closed PCP Requested Referral 10/12/2022 10/12/2023 1 1 Reason Comments Radiology MRI Referral ID Status Reason Start Date Expiration Date V isits Requested Visits Authorized [id number] Closed Auto-Generate d Referral 09/29/2022 10/29/2023 1 1 Reason Comments Schedule Surgery Right SEEG Reason Comments Pre-Op Visit Specialty Diagnoses / Procedures Referred By Contac t Referred To Contact ANESTHESIOLOGY Diagnoses Pre op Clearance Procedures COMPLETE PACC Jess David MD [address] [place] [address] 6, P[address] [place] [address] Referral ID Status Reason Start Date Expiration Date V isits Requested Visits Authorized [id number] Pending Review 11/22/2022 02/20/2023 1 1 Specialty Diagnoses / Procedures Referred By Contac t Referred To Contact MR IMAGING Diagnoses Encounter for other preprocedural examination Partial symptomatic epilepsy with complex partial seizures, not intractable, without status epilepticus (HCC) Preoperative testing Procedures MRI BRAIN LOCALIZATION W IVCON UNLISTED MAGNETIC RESONANCE PROCED Evaristo Torres PA-C [address] [place] [address] Mr Imaging Referral ID Status Reason Start Date Expiration Date V isits Requested Visits Authorized [id number] Closed Auto-Generate d Referral 11/22/2022 11/18/2023 [address] Specialty Diagnoses / Procedures Referred By Contac t Referred To Contact CT IMAGING Diagnoses Encounter for other preprocedural examination Partial symptomatic epilepsy with complex partial seizures, not intractable, without status epilepticus (HCC) Preoperative testing Procedures CTA HEAD W IVCON CT ANGIOGRAPHY HEAD W/CONTRAST/NONCONTRAST Evaristo Torres PA-C [id number] Imaging Referral ID Status Reason Start Date Expiration Date V isits Requested Visits Authorized [id number] Closed Auto-Generate d Referral 11/22/2022 11/18/2023 1 1 Reason Comments Results Ditch Tender - Other Reason Comments New Patient Pre-op Palpitations resolved Specialty Diagnoses / Procedures Referred By Contac t Referred To Contact Cardiology Diagnoses Preoperative testing Procedures CONSULT TO CARDIOLOGY OFFICE/OUTPATIENT NEW HIGH MDM 60-74 MINUTES Evaristo Torres PA-C [address] [place] [place] [id number] Referral ID Status Reason Start Date Expiration Date V isits Requested Visits Authorized [id number] Closed PCP Requested Referral 10/19/2022 10/19/2023 1 1 Reason Comments Ditch Tender - Other Reason Comments Ditch Tender - Other Reason Comments Epilepsy Reason Comments [...] STEM W/O CONTRAST MATERIAL Evaristo Torres PA-C [address] [facility] [place] [address] Mr Imaging Referral ID Status Reason Start Date Expiration Date V isits Requested Visits Authorized [id number] Closed Auto-Generat ed Referral Patient Cleared - Admin/Chairm an/Director advise to proceed 01/10/2023 02/09/2024 1 1 Reason Comments Received Outside Medical Records [facility] Reason Comments Post-Op Visit Reason Onset Date Comments Refill Request 03/17/2023 Reason Onset Date Comments Refill Request 04/20/2023 Reason Comments Forms Panfilo flanagan my Reason Comments Other [facility] ED calling to speak with Dr. Marin; pt in ED d/t seizures Specialty Diagnoses / Procedures Referred By Andres angulo Referred To Contact MR IMAGING Diagnoses Partial symptomatic epilepsy with complex partial seizures, not intractable, without status epilepticus (HCC) S/P brain surgery Procedures MRI BRAIN WO IVCON MRI BRAIN BRAIN STEM W/O CONTRAST MATERIAL Claudio Michaels, SALES CORRESPONDENT.VENETIAN BLIND MACHINE OPERATOR [address] [place] [id number] Mr Imaging [place] [address] Referral ID Status Reason Start Date Expiration Date V isits Requested Visits Authorized [id number] Closed Auto-Generate d Referral 03/10/2023 04/08/2024 1 1 Reason Comments Follow Up Reason Comments Patient Update Reason Comments Refill Request Reason Onset Date Comments Refill Request 10/29/2023 Reason Comments Epilepsy Follow Up Post-Op Visit Specialty Diagnoses / Procedures Referred By Andres angulo Referred To Contact Diagnoses Partial symptomatic epilepsy with complex partial seizures, not intractable, without status epilepticus (HCC) S/P brain surgery Procedures PROVIDER ORDERED FOLLOW UP OFFICE/OUTPATIENT [facility] HIGH MDM 60-74 MINUTES Claudio Michaels, SALES CORRESPONDENT.VENETIAN BLIND MACHINE OPERATOR [address] [place] [address] Referral ID Status Reason Start Date Expiration Date V isits Requested Visits Authorized [id number] Closed PCP Requested Referral 01/25/2024 07/24/2024 1 [...] BE BASED ON THE PRIMARY CLINICAL RECORDS. [facility]. provides no warranty or guarantee of the accuracy or completeness of information in this document.
[2024-08-04 13:14] LABS: HCG Quantitative 31888 mIU/mL
== END 2024-08-04 12:15 | disposition home or self-care (01) ==
LOC: LAB 12:15
PROVIDERS: PCP Family Medicine; Visit Provider Physician Assistant
DX: O02.81 Inappropriate change in quantitative human chorionic gonadotropin (hCG) in early pregnancy (principal)
CPT/HCPCS: 36415; 84702

== ENCOUNTER 2024-08-09 15:16 | Emergency (ER) | payer OTHER, MEDICAID, SELFPAY ==
--- NOTE | 2024-08-09 15:22 | US_ITS ---
[address] [address] Patient Name: KWASI HEBERT MRN: [id number] date: 2000 Sex: F Assigned Patient Location: ER Current Patient Location: ER Accession/Order Number: [id number] Exam Date: 08/09/2024 14:03 Report Date: 08/09/2024 18:06 At the request of: RAMILA SEGOVIA Procedure: US OB transvaginal Obstetrical ultrasound, 1st trimester CLINICAL: Vaginal bleeding TECHNIQUE: Transvaginal obstetrical ultrasound was performed. FINDINGS: Comparison: None. UTERUS: A single intrauterine gestation sac is visualized. Yolk sac and pole identified. [place] rump length is 6.0 mm. heart rate of 114 beats per minute. OVARIES/ADNEXA: The right ovary measures 2.8 x 2.5 x 2.7 cm. The left ovary measures 1.8 x 1.5 x 2.4 cm. There is normal vascular flow to both ovaries. Small physiologic sized follicles are identified in both ovaries. OTHER FINDINGS: The cervix is closed. Negative for subchorionic hemorrhage. ULTRASOUND GESTATIONAL AGE AND ESTIMATED DATE OF CONFINEMENT: The estimated gestational age by ultrasound is 6 weeks 3 days with an estimated date of confinement by the ultrasound of 04/01/2025. US/US OB transvaginal IMPRESSION: 1. Single viable intrauterine gestation with yolk sac and pole identified. heart rate of 114 beats per minute. Estimated gestational age by ultrasound is 6 weeks 3 days with an estimated date of confinement by ultrasound of 04/01/2025. Follow-up ultrasound at 18-22 weeks' gestation for anatomy evaluation. 2. Normal ovaries. 3. Negative for subchorionic hemorrhage. Closed cervix. Electronically authenticated by: ROB GAY Date: 08/09/2024 18:06
[2024-08-09 15:23] VITALS: BP 121/73; PULSE 64; TEMP 36.7; O2SAT 98; BMI 26.9
--- NOTE | 2024-08-09 15:23 | ED_ITS ---
HPI HPI - General Adult General Chief complaint: Nausea/Vomiting/Diarrhea Stated complaint: BLEEDING 6 weeks Time Seen by Provider: 08/09/24 15:22 Source: patient History of Present Illness HPI narrative: Patient is a 23-year-old female A1 who presents to the emergency department with concern she may be having a miscarriage. She believes she is about 6 weeks , she had an ultrasound 5 days ago for vaginal bleeding at [facility] which showed cardiac activity, however she states that her hCG levels are not going up the way that her DISH PERSON wants them to be. She does not have an appointment with him until the seventh. She states for the last 2 days she has had nausea and vomiting and is not able to hold anything down. She presents to this emergency department for additional evaluation, she has had 1 previous miscarriage and this is her concern today. No urinary symptoms although she is being treated with an antibiotic for UTI. She continues to have diffuse mild pelvic pain. She does not believe she was able to hold down her UTI antibiotics today. Related Data Home Medications ?Medication ?Instructions ?Recorded ?Confirmed cephalexin 500 mg capsule 500 mg PO Q12H 08/09/24 08/09/24 ondansetron HCl 4 mg tablet 4 mg PO DAILY 08/09/24 08/09/24 Previous Rx's ?Medication ?Instructions ?Recorded famotidine 20 mg tablet (Pepcid) 20 mg PO BID #10 tabs 12/31/23 meloxicam 15 mg tablet 15 mg PO DAILY PRN pain #10 tabs 12/31/23 metoclopramide HCl 10 mg tablet 10 mg PO Q6H PRN nausea and 08/09/24 (Reglan) vomiting #12 tabs Allergies Allergy/AdvReac Type Severity Reaction Status Date / Time Iodinated Contrast Media Allergy Severe Hives Verified 08/02/24 18:51 zonisamide Allergy Severe Hallucinati Verified 08/02/24 18:51 ng morphine AdvReac Severe elmore her Verified 08/02/24 18:51 viens Opioid HPI Opioid Management Most Recent Opioid Data: Ur Phencyclidine Scrn Negative (NEGATIVE) 08/09/24 17:10 07/15 03/06 Review of Systems ROS Constitutional Denies: fever or chills Ears, nose, mouth, and throat Denies: throat pain or nasal congestion Cardiovascular Denies: chest pain Respiratory Denies: shortness of breath or cough Gastrointestinal Reports: abdominal pain, nausea and vomiting; Denies: diarrhea Musculoskeletal Denies: back pain Integumentary/Breast Denies: rash Neurological Denies: numbness in extremities or weakness in extremities Hematologic/Lymphatic Denies: easy bruising or easy bleeding [facility] Social History Little interest or pleasure in doing things: not at all Feeling down, depressed, or hopeless: not at all Exam Narrative Exam Narrative: Gen.: Awake, alert, in no distress Head: Normocephalic, atraumatic ENT: Moist mucous membranes Respiratory: No respiratory distress Gastrointestinal: Abdomen is soft, nondistended and nontender to palpation; no McBurney's tenderness, no pain out of proportion on exam Extremities: Moves extremities equally Psych: Normal mood and affect Neuro: No focal neuro deficit Skin: Warm, dry, intact Constitutional Vital Signs, click to edit/add: Last Vital Signs Temp 98.0 F 08/09/24 15:23 Pulse 64 08/09/24 15:23 Resp 18 08/09/24 15:23 BP 121/73 08/09/24 15:23 Pulse Ox 98 08/09/24 15:23 O2 Del Method Room Air 08/09/24 15:23 Course Vital Signs Vital signs: Vital Signs Temperature 98.0 F 08/09/24 15:23 Pulse Rate 64 08/09/24 15:23 Respiratory Rate 18 08/09/24 15:23 Blood Pressure 121/73 08/09/24 15:23 Pulse Oximetry 98 08/09/24 15:23 Oxygen Delivery Method Room Air 08/09/24 15:23 Temperature 98.0 F 08/09/24 15:23 Pulse Rate 64 08/09/24 15:23 Respiratory Rate 18 08/09/24 15:23 Blood Pressure 121/73 08/09/24 15:23 Pulse Oximetry 98 08/09/24 15:23 Oxygen Delivery Method Room Air 08/09/24 15:23 Medical Decision Making MDM Narrative Medical decision making narrative: Laboratory studies reviewed and noted, stable with no evidence of acute process. Urine is positive for marijuana and patient was strongly encouraged to consider not using marijuana during her which may contribute to vomiting, dehydration. She was given IV fluids and Reglan. She tolerated fluids orally with no difficulty. Ultrasound shows an intrauterine gestation at 6 weeks and 3 days with heart rate 114, cervix is closed and no evidence of subchorionic hemorrhage. Follow-up with DISH PERSON and return to the ER if symptoms change or worsen. Blood type on file is A positive. SUPERVISED APC VISIT, PHYSICIAN ATTESTATION: Based on the medical record the care appears appropriate. ? Medical Records Medical records reviewed: Yes I reviewed the patient's medical records Lab Data Lab results reviewed: Yes I reviewed the patient's lab results Labs: Lab Results 08/09/24 08/09/24 Range/Units 15:40 17:10 WBC 9.2 (4.0-11.0) 10^3/uL RBC 4.47 (4.20-5.40) 10^6/uL Hgb 13.4 (12.0-16.0) g/dL Hct 39.3 (36.0-48.0) % MCV 87.9 (81.0-99.0) fL MCH 30.0 (26.7-34.0) pg MCHC 34.1 (29.9-35.2) g/dL RDW 12.9 (11.0-15.0) % Plt Count 255 (150-450) 10^3/uL MPV 11.3 (9.5-13.5) fL Neut % (Auto) 69.4 (43.0-75.0) % Lymph % (Auto) 22.3 (20.5-60.0) % Archer % (Auto) 6.5 (1.7-12.0) % Eos % (Auto) 0.8 L (0.9-7.0) % Baso % (Auto) 0.8 (0.2-2.0) % Neut # (Auto) 6.4 (1.4-6.5) 10^3/uL Lymph # (Auto) 2.1 (1.2-3.8) 10^3/uL Archer # (Auto) 0.6 (0.3-0.8) 10^3/uL Eos # (Auto) 0.1 (0.0-0.7) 10^3/uL Baso # (Auto) 0.1 (0.0-0.1) 10^3/uL Abs Immat Gran (auto) 0.02 (0.00-0.03) 10^3/uL Imm/Tot Granulo (auto) 0.2 (0.0-0.5) % Sodium 137 (136-145) mmol/L Potassium 3.4 L (3.5-5.1) mmol/L Chloride 103 (98-107) mmol/L Carbon Dioxide 21.2 (21.0-32.0) mmol/L Anion Gap 16.2 BUN 8.0 (7.0-18.0) mg/dL Creatinine 0.90 (0.55-1.02) mg/dL Est GFR ( Amer) >60 (>=60 mL/min/1.73m^2) Est GFR (Non-Af Amer) >60 (>=60 mL/min/1.73m^2) BUN/Creatinine Ratio 8.9 Glucose 85 (74-106) mg/dL Calcium 9.1 (8.5-10.1) mg/dL HCG, Quant 49378 mIU/mL Urine Color Lt. yellow (YELLOW) Urine Clarity Clear (CLEAR) Urine pH 6.5 (5.0-9.0) Ur Specific [place] 1.020 (1.005-1.025) Urine Protein Negative (NEG/TRACE) mg/dL Urine Glucose (UA) Negative (NEGATIVE) mg/dL Urine Ketones >=80 A (NEGATIVE) mg/dL Urine Occult Blood Negative (NEGATIVE) Urine Nitrite Negative (NEGATIVE) Urine Bilirubin Negative (NEGATIVE) Urine Urobilinogen 0.2 (0.2-1.0) EU/dL Ur Leukocyte Esterase Negative (NEGATIVE) Urine Opiates Screen Negative (NEGATIVE) Ur Buprenorphine Scrn Negative (NEGATIVE) Ur Oxycodone Screen Negative (NEGATIVE) Urine Methadone Screen Negative (NEGATIVE) Ur Barbiturates Screen Negative (NEGATIVE) U Tricyclic Antidepress Negative (NEGATIVE) Ur Phencyclidine Scrn Negative (NEGATIVE) Ur Amphetamines Screen Negative (NEGATIVE) U Methamphetamines Scrn Negative (NEGATIVE) U Benzodiazepines Scrn Negative (NEGATIVE) Urine Cocaine Screen Negative (NEGATIVE) U Cannabinoids Screen Positive A (NEGATIVE) Imaging Data US - abdomen: Attestation: I have reviewed the pertinent imaging results. Radiologist's impression: ITS Impressions Transvaginal US 08/09/24 15:22 IMPRESSION: 1. Single viable intrauterine gestation with yolk sac and pole identified. heart rate of 114 beats per minute. Estimated gestational age by ultrasound is 6 weeks 3 days with an estimated date of confinement by ultrasound of 04/01/2025. Follow-up ultrasound at 18-22 weeks' gestation for anatomy evaluation. 2. Normal ovaries. 3. Negative for subchorionic hemorrhage. Closed cervix. Electronically authenticated by: ROB GAY Date: 08/09/2024 18:06 Discharge Plan Discharge Chief Complaint: Nausea/Vomiting/Diarrhea Clinical Impression: Nausea and vomiting in , Marijuana use during Patient Disposition: Home, Self-Care Time of Disposition Decision: 18:10 Condition: Good Prescriptions / Home Meds: New metoclopramide HCl [Reglan] 10 mg tablet 10 mg PO Q6H PRN (Reason: nausea and vomiting) Qty: 12 0RF No Action famotidine [Pepcid] 20 mg tablet 20 mg PO BID Qty: 10 0RF meloxicam 15 mg tablet 15 mg PO DAILY PRN (Reason: pain ) Qty: 10 0RF ondansetron HCl 4 mg tablet 4 mg PO DAILY cephalexin 500 mg capsule 500 mg PO Q12H Print Language: Latvian Instructions: Nausea and Vomiting in (ED) Additional Instructions: Please follow up with your DISH PERSON as scheduled Referrals: HINA BAILEY [Primary Care Provider] - 1 week
--- OUTSIDE RECORDS SUMMARY | 2024-08-09 15:26 | XMS_ITS | CCD ---
Author Organization [facility] Care Team Providers Care Airport Ramp Attendant Name Role Phone Kamran TORRE, Remi Dahl Primary Care Provider [phone] MD Remi Andrew Primary Care Provider ELANA Welsh-GLENN Lamb Emergency Provider DO Brando Guy Emergency Provider KRISTA Barlow Emergency Provider KRISTA Barlow Attending Provider DO Bill Keith Emergency Provider Kamran TORRE, Remi Dahl Primary Care Provider Kamran TORRE, Remi Dahl Primary Care Provider Kamran TORRE, Remi Dahl Primary Care Provider MD Remi Andrew Primary Care Provider MD Sedrick Pina Jr Emergency Provider KRISTA Funk Emergency Provider DO Shashi Ornelas Emergency Provider MD Remi Batista Primary Care Provider [phone] KRISTA Barlow Emergency Provider [phone] Travis LAWSON, Jessa Odonnell Unavailable Remi Andrew MD Primary Care Provider NONE, XXXX Primary Care Physician Unavailab Tanika TORRE, Remi Dahl Primary Care Provider MD Remi Andrew Primary Care Provider MD Remi Andrew Attending Provider SERGEI HARRISON Attending Unavailable JOVAN, CHRISTIE Cruz Attending Unavailable LAUSECHRISTIE R Attending Unavailable NANCYUSE CHRISTIE R Attending Unavailable WARCHOL, ESSENCE Attending Unavailable WARCHOL, ESSENCE Attending Unavailable Andrew, Remi Primary Care Unavailable Feng Barlow Attending Unavailable Feng Barlow Admitting Unavailable Andrew, Remi Admitting Unavailable Nadrew, Remi Attending Unavailable Andrew, Remi Primary Care Unavailable Chelo CAB DRIVER, Essence Unavailable Jovan CAB DRIVER, Christie Cruz Unavailable Sergei Harrison DO Unavailable ANDREW, REMI JORGE Primary Care Unavailable FEROZ WHITE Attending Unavailable SELF Referring Unavailable ANDREW, REMI JORGE Primary Care Unavailable RAMOS FEROZ DUFF Attending Unavailable ANDREW, REMI JORGE Primary Care Unavailable DONGBEL, CLAUDIO Referring Unavailable DONGBEL, CLAUDIO Attending Unavailable SELF Referring Unavailable ANDREW, REMI JORGE Primary Care Unavailable RAMOS FEROZ DUFF Attending Unavailable LONA URRUTIA Attending Unavailable ANDREW, REMI JORGE Primary Care Unavailable ANDREW, REMI JORGE Primary Care Unavailable ROBERT MARIN Attending Unavailable ANDREW, REMI JORGE Primary Care Unavailable ANDREW, REMI Primary Care Physician [phone] Laurent Vieyra Attending Unavailable Laurent Vieyra Admitting Unavailable Roybn Bundy Attending Unavailable Robyn Bundy Admitting Unavailable Laurent Vieyra Admitting Unavailable Laurent Vieyra Attending Unavailable Ulises Philip Attending Unavailable Ulises Philip Attending Unavailable Laurent Vieyra Attending Unavailable Laurent Vieyra Admitting Unavailable Laurent Vieyra Attending Unavailable Laurent Vieyar Admitting Unavailable Allergies Allergy Classification Reported Allergen(s) Allergy Type Date of Onset Reaction(s) Facility (20 sources) Iodinated Contrast Media; Translations: [IODINATED CONTRAST MEDIA] Drug Intolerance 7 Hives, Itching, Anaphylaxis, Dizziness, Headache, Rash, Shortness of breath [facility] (20 sources) Morphine; Translations: [MORPHINE] Drug Allergy 2 Intolerance, Irritant contact dermatitis (disorder) [facility] Work Phone: (20 sources) zonisamide; Translations: [ZONISAMIDE] Drug Allergy 2 Mental Status Change, GI Upset, Vomiting, Shortness of Breath [facility] (3 sources) Contrast media Propensity to adverse reactions 2 [facility]aphyl[facility] (7 sources) Iodine Drug Allergy 3 [facility] (7 sources) Zonisamide Allergy to substance 2 GI intolerance, Shortness of breath [facility] (1 source) Morphine Drug Allergy 3 [facility] (1 source) zonisamide Drug Allergy 3 [facility] (1 source) Iodinated Contrast Media Drug allergy (disorder) [facility] (4 sources) Contrast media; Translations: [Contrast Dye] Drug allergy Pharyngeal swelling (finding) [facility] Medications Current Medications Medication Drug Class(es) Dates [...] 1 tablet by jaron twice daily for 2 doses. amoxicillin 875 [...] 01, 2022. Take 1 tablet by jaron th twice daily for 30 days. Take 1 tablet by jaron th twice daily for 90 days. Take 1 tablet by jaron th two times a day for 90 days. cephalexin 500 mg oral capsule (20 sources) Cephalosporin Antibacterial Start: 08-06-2024 End: 08-13-2024 take 1 capsule by mouth every twelve hours Keflex 500 mg Cap 500 mg = 1 cap(s), Oral, q12hr, X 7 day(s), # 14 cap(s), Refills(s) 0 Start Date: 08/06/24 Stop Date: 08/13/24 Status: Ordered Start: 03-10-2023 take 500 mg by mouth twice daily Cephalexin Active 500 MG PO Twice daily 24 02March 10, 2023 12:00am Start: 10-10-2021 End: 11-10-2021 take 500 mg by mouth twice daily Cephalexin Discontinued 500 MG PO Twice daily 24 02October 10, 2021 1:00am November 10, 2021 11:12am [...] every week cholecalciferol (Vitamin D-3) 1.25 MG (78231 UT) capsule Indications: Vitamin D deficiency Take [...] days. docusate sodium 50 mg / sennosides, mcc 8.6 mg oral tablet (8 sources) Start: [...] Comment on above: Take 1 tablet by [facility] twice daily. ergocalciferol 1.25 mg oral capsule (2 sources) Provitamin D2 Compound take 1 capsule by mouth every week ergocalciferol 50,000 unit capsule (VITAMIN D2, DRISDOL) Take 50,000 Units by mouth one time a week. Active escitalopram 20 mg oral tablet (13 sources) Serotonin Reuptake Inhibitor Start: 03-26-20 24 take 1 tablet by mouth once daily escitalopram oxalate (LEXAPRO) 20 mg tablet TAKE 1 TABLET BY MOUTH EVERY DAY 30 tablet 2 07/05/2024 Active Start: 03-26-2024 End: 06-10-2024 take 1 [...] on above: Take 2 tablets by mo ut once daily. Take 4 tablets by mo [...] Start: 07-11-2022 take 2 tablets by mo [facility] twice daily lamoTRIgine dispersible/chewable (LAMICTAL) 25 mg [...] 100mg tablets. Take 8 tablets by mo ut twice daily. Follow schedule to reach 200 [...] on above: Take 1 tablet by jaron every 12 hours. Wean off as instructed. Take 500 mg by mouth every 12 hours. Take 5 mL by mouth t wice daily. Wean off as directed over 14 weeks mirtazapine 15 mg oral tablet (11 sources) Start: 024 take 1 tablet by mouth once daily at bedtime mirtazapine (REMERON) 15 mg tablet TAKE 1 TABLET BY MOUTH EVERYDAY AT BEDTIME 90 tablet 1 07/19/2024 Active mupirocin 0.02 mg/mg topical ointment (1 source) RNA Synthetase Inhibitor Antibacterial Start: 023 End: 023 mupirocin (BACTROBAN) 2 % ointment Apply small [...] on above: Take 1 tablet by jaron at 08:30 AM on 11/22 prior to [...] Start: 12-22-2022 take 2 tablets by mo [facility] every eight hours as needed methocarbamol (ROBAXIN) 500 mg tablet Take 2 tablets by mouth every 8 hours as needed. 30 tablet 0 12/22/2022 Active Comment on above: Take 2 tablets by mo [facility] every 8 hours as needed. Take 1 tablet by jaron three times daily as needed. naproxen 500 mg oral tablet (6 sources) Nonsteroidal Anti-inflammatory Drug Start: 07-11-20 End: 09-20-19 take 1 tablet by mouth twice daily [...] tablet (20 sources) Serotonin-3 Receptor Antagonist Start: 08-06-20 take 1 tablet by mouth every six hours as needed for nausea Zofran 4 mg Tab 4 mg = 1 tab(s), Oral, q6hr, PRN Nausea, Take one tab by mouth every six hours as needed for nausea, # 10 tab(s), Refills(s) 0 Start Date: 08/06/24 Status: Ordered Start: 02-07-2023 End: 07-24-2023 take 1 tablet [...] oral tablet (16 sources) Anti-epileptic Agent Start: End: take 1 [...] 1 tablet by jaron th once daily. sulfamethoxazole 800 mg / trimethoprim [...] Date Documented Da te Episodic/Chronic Abdominal pain (14 sources) Abdominal pain; Translations: [Unspecified abdominal pain] Onset: 08-06-2024 06-15-2020 Episodic Anxiety disorders (20 sources) Mixed [...] partial remission] 07-24-2023 Chronic Nausea and vomiting (12 sources) Nausea, vomiting and diarrhea; Translations: [Nausea with vomiting, unspecified] Onset: 08-06-2024 12-19-2020 Episodic Nutritional deficiencies (1 source) Vitamin D deficiency; Translations: [Vitamin D deficiency, unspecified] 06-19-2024 Chronic Other aftercare (1 source) Removal of sutures done; Translations: [Encounter for removal of sutures] Episodic Other complications of (1 source) Finding related to ; Translations: [Other specified related conditions, unspecified trimester] Onset: 08-06-2024 Episodic Other female genital disorders (8 sources) [...] Translations: [Other specified postprocedural states] 03-09-2023 Episodic Residual codes; unclassified (1 source) Tobacco user 08-06-2024 Episodic Sprains and strains (8 sources) Strain of neck muscle; Translations: [Strain of muscle, fascia and tendon at neck level, initial encounter] 06-15-2020 Episodic Substance-related disorders (1 source) Smoker 08-06-2024 Chronic Comment on above: Added secondary to d ocumentation in Social History. Urinary tract infections (20 sources) Acute urinary tract infection; Translations: [Urinary tract infection, site not specified] Onset: 08-28-2022 Resolved: 11-22-2022 10-10-2021 Episodic Past or Other Problems Problem Classification Problem Date Documented Da te Episodic/Chronic Epilepsy; convulsions (20 sources) Seizure; Translations: [Unspecified convulsions] Onset: 10-03-2022 Episodic Mood disorders (7 sources) Mood disorders Onset: 06-30-2023 06-30-2023 Nonmalignant [...] Translations: [Cannabis use, unspecified, uncomplicated] Onset: 01-24-2023 3 Episodic Results Test Name Value Interpretation Reference Range Facility C Urineon 08-08-2024 Bacteria identified Cx Nom (U) Microbiology PROCEDURE: Urine Culture [R1] SOURCE: U CleanCatch BODY SITE: COLLECTED DATE/TIME: 08/06/2024 09:38 EST RECEIVED DATE/TIME: 08/06/2024 13:31 EST START DATE/TIME: 08/06/2024 13:31 EST FREE TEXT SOURCE: Ulises Philip DO, DO, Ulises FINAL REPORTS Final Report [] Verified Date/Time: 08/08/2024 09:06 EST <10,000 cfu/ml Mixed skin contaminants Performing Locations R1: This test was performed at: [employer], [address] [place] [address], [address] , , [facility] Comment on above: Performed By: #### 2 [id number] #### [facility] [address] [place] [id number] Bacteria identified Cx Nom (U) Microbiology PROCEDURE: Urine Culture [R1] SOURCE: U CleanCatch BODY SITE: COLLECTED DATE/TIME: 08/05/2024 12:00 EST RECEIVED DATE/TIME: 08/06/2024 16:01 EST START DATE/TIME: 08/06/2024 16:01 EST FREE TEXT SOURCE: Azalia TORRE, Laurent Vieyra MD, Laurent Mason FINAL REPORTS Final Report [] Verified Date/Time: 08/08/2024 09:06 EST <10,000 cfu/ml Mixed skin contaminants Performing Locations R1: This test was performed at: [facility], [address] [place] [address], [id number]- , , [facility] Comment on above: Performed By: #### 2 [id number] #### [facility] [address] [place] [address] HIV Screen 4th Generation wR fxon 08-07-2024 HIV 1+2 Ab+HIV1 p24 Ag IA Ql Non-Reactive Invalid Interpretation Code Non Reactive [facility] Comment on above: Result Comment: HIV- 1/HIV-2 antibodies and HIV-1 p24 antigen were NOT detected. There is no laboratory evidence of HIV infection. HIV Negative Performed at: [address] [id number] PhD Ricky Del Rio Performed By: #### 9 [id number] #### [facility] [address] [place] [address] Hep Bs Agon 08-07-2024 HBV surface Ag IA Ql Negative Invalid Interpretation Code Negative [facility] Comment on above: Result Comment: Perf ormed at: [address] [id number] PhD Ricky Del Rio Performed By: #### 2 [id number] #### [facility] [address] [place] [address] RPR with Conf Rfxon 08-07-20 Reagin Ab RPR Ql (S) Non-Reactive Invalid Interpretation Code Non Reactive [facility] Comment on above: Result Comment: Perf ormed at: [address] [id number] PhD Ricky Del Rio Performed By: #### 1 [id number] #### [facility] [address] [place] [address] Rubella IgGon 08-07-2024 Rubella virus IgG Qn (S) 1.62 [IU]/mL Invalid Interpretation Code Immune >0.99 [facility] Comment on above: Result Comment: Non- immune <0.90 Equivocal 0.90 - 0.99 Immune >0.99 Performed at: [address] [id number] PhD Ricky Del Rio Performed By: #### 1 [id number] #### [facility] [address] [place] [address] BB Draw & Holdon 08-06-2024 BB D&H Sample drawn for Blood Ba Normal [facility] Comment on above: Performed By: #### 1 [id number] #### [facility] [address] [place] [address] CG Quanton 08-06-2024 [place] [address] m[IU]/mL High 1-3 F [facility] Comment on above: Result Comment: 'F N ON < 1 - 3' ' 0.2 - 1 WEEK = 5 TO 50' ' 1 - 2 WEEKS = 50 - 500' ' 2 - 3 WEEKS = 100 - 5000' ' 3 - 4 WEEKS = 500 - 77468' ' 4 - 5 WEEKS = 1000 - 62520' ' 5 - 6 WEEKS = 11354 - 207753' ' 6 - 8 WEEKS = 68072 - 423170' ' 8 - 12 WEEKS = 75822 - 636517' Performed By: #### 2 [id number] #### [facility] [address] [place] [address] CHEMISTRYOrdered By: SYSTEM SYSTEM on 08-06-2024 [place] [address] m[IU]/mL High 1 - 3 mIU/mL [facility] Comment on above: Result Comment: 'F N ON < 1 - 3' ' 0.2 - 1 WEEK = 5 TO 50' ' 1 - 2 WEEKS = 50 - 500' ' 2 - 3 WEEKS = 100 - 5000' ' 3 - 4 WEEKS = 500 - 23516' ' 4 - 5 WEEKS = 1000 - 95256' ' 5 - 6 WEEKS = 57119 - 684368' ' 6 - 8 WEEKS = 96944 - 754651' ' 8 - 12 WEEKS = 88587 - 152123' ED Clinical Summaryon 2023 ED Clinical Summary ED Clinical Summary [address] [address] ED Clinical Summary Person Information Name: KWASI HEBERT Elvia/[facility] Age: 23 Years : 2000 Sex: Female Language: Romanian PCP: REMI ANDREW MD Marital Status: Single Phone: [phone] Visit Id: Visit Reason: Abdominal pain - ; ABDOMINAL PAIN - , SENT BY [facility] Speciality: Acuity: 3 Enc Type: Emergency Med Service: Emergency Arrival: 08/06/2024 09:17:29 Discharge: 08/06/2024 11:11:20 LOS: 000 01:54 Checkin: 08/06/2024 09:17:29 Checkout: 08/06/2024 11:11:20 Dispo Type: Home (Routine DC) EVENTS: Event Name Event Status Request Date/Time Start Date/Time Complete Date/Time Arrive Complete 08/06/2024 09:17:29 08/06/2024 09:17:29 08/06/2024 09:17:29 Document Home Meds Request 08/06/2024 09:17:29 Triage Complete 08/06/2024 09:17:29 08/06/2024 09:29:22 08/06/2024 09:29:22 Bed Assign Complete 08/06/2024 09:19:49 08/06/2024 09:19:49 08/06/2024 09:19:49 Dr Exam Complete 08/06/2024 09:19:49 08/06/2024 09:20:28 08/06/2024 09:20:28 RN Exam Complete 08/06/2024 09:19:49 08/06/2024 09:46:20 08/06/2024 09:46:20 Registration Complete 08/06/2024 09:20:05 08/06/2024 09:20:05 08/06/2024 09:20:05 Reg Complete Request 08/06/2024 09:20:05 Reg Bed Request Complete 08/06/2024 09:20:05 08/06/2024 09:20:05 08/06/2024 09:20:05 Registration Complete 08/06/2024 09:20:28 08/06/2024 09:20:39 08/06/2024 09:20:39 Pending Labs Complete 08/06/2024 09:27:07 08/06/2024 10:37:30 Lab Complete 08/06/2024 09:27:07 08/06/2024 10:37:30 US Complete 08/06/2024 09:27:07 08/06/2024 10:18:46 08/06/2024 10:45:32 Meds Admin Complete 08/06/2024 09:32:21 08/06/2024 09:36:43 Pending Labs Collected 08/06/2024 09:50:45 08/06/2024 09:50:45 Lab Collected 08/06/2024 09:50:45 08/06/2024 09:50:45 Pending Labs Inlab 08/06/2024 10:02:25 08/06/2024 10:02:25 Blood Collect Start 08/06/2024 10:02:25 08/06/2024 10:02:25 Pending Labs Complete 08/06/2024 10:27:09 08/06/2024 10:27:09 08/06/2024 10:27:09 US Complete 08/06/2024 10:43:18 08/06/2024 10:46:12 Discharge Complete 08/06/2024 11:05:00 08/06/2024 11:11:36 08/06/2024 11:11:36 Transfer Complete 08/06/2024 11:11:36 08/06/2024 11:11:36 08/06/2024 11:11:36 ADDRESS: [address] [place] [id number] [facility] DOC NOTES: MEDICAL INFORMATION: Prescriptions Given: New Medications Printed Prescriptions cephalexin (Keflex 500 mg Cap) 1 Capsules By Mouth every 12 hours for 7 Days. Refills: 0. ondansetron (Zofran 4 mg Tab) 1 Tablets By Mouth every 6 hours as needed Nausea. Take one tab by mouth every six hours as needed for nausea. Refills: 0. PATIENT EDUCATION INFORMATION: Instructions: and Urinary Tract Infection Follow up: With: Address: When: Laruent CANTU, [facility] [address], [place] [id number] Business (1) In 3 days 08/09/2024 DIAGNOSIS: Pelvic and perineal pain; Pelvic pain in ; UTI (urinary tract infection); Vomiting Normal [facility] ED Note-Physicianon 08-06-20 ED Note-Physician ED Note-Physician Basic Information Time Seen: Cedrick ORO Ulises 08/06/2024 09:20 History of Present Illness 23 female G2, P0 presents emergency department with right lower pelvic pain. Patient states that she has had this pain since which was about 5 days ago. She states that she is 6 weeks 2 days . She presented to the emergency department at [place] and was seen on 3 separate occasions but never had an ultrasound performed. She talk to her [facility] physician today was sent to the emergency department for repeat quantitative level and ultrasound. Patient denies any prior abdominal surgeries she has been throwing up with this as well denies any fevers or chills. She reports no urinary symptoms I did check a urine test at [place] and she reports that this was negative. No other aggravating or relieving factors no other associated symptoms no other prior treatments or complaints. Family: Reviewed and noncontributory Social: lives at home Review of systems negative unless otherwise specified in the HPI. Physical Exam General: The patient appears well and in no apparent distress. Patient is resting comfortably on cart. Skin: Warm, dry, no pallor noted. Head: Normocephalic, atraumatic Neck: No JVD Eye: PERRLA, EOMI ENT: Moist mucus membranes Cardiovascular: Regular rate normal peripheral perfusion Respiratory: No respiratory distress no accessory muscle use no obvious audible wheezing Chest Wall: no deformity Musculoskeletal: normal ROM, no deformity, no swelling GI: Soft no obvious distention. No rebound or rigidity. No guarding. Mild to moderate tenderness palpation in the right lower pelvic region Neurological: A&O moves all extremities equal strength and symmetry Psychiatric: Cooperative and appropriate Medical Decision Making Workup in the ER has been reviewed and noted. Urinalysis positive for UTI this may be the source of the patient's pain. Quantitative level is increasing. Ultrasound shows single live intrauterine approximately 6 weeks. Patient is discharged home on Zofran and Keflex and follow-up with [facility] in the outpatient setting return to ER symptoms change or worsen. Assessment/Plan Pelvic and perineal pain (R10.2: Pelvic and perineal pain) Pelvic pain in (O26.899: Other specified related conditions, unspecified trimester) UTI (urinary tract infection) (N39.0: Urinary tract infection, site not specified) Vomiting (R11.10: Vomiting, unspecified) Orders: cephalexin, 500 mg = 1 cap(s), Oral, q12hr, X 7 day(s), # 14 cap(s), Refills(s) 0 ondansetron, 4 mg = 1 tab(s), Oral, q6hr, PRN Nausea, Take one tab by mouth every six hours as needed for nausea, # 10 tab(s), Refills(s) 0 ondansetron, 4 mg = 1 tab(s), Tab-Dis, Oral, Once, Stop date 08/06/24 9:32:00 EST, STAT, Start date 08/06/24 9:32:00 EST, 08/06/24 9:32:00 EST BB Draw & Hold Beta hCG Quantitative Extra Blue Tube Extra Lav Tube Extra SST Tube UA with Cult Rflx Urine Culture US 1st Trimester US Transvaginal Medications Administered Given Zofran ODT 4 mg Tab-Dis, 4 mg, Oral Disposition Plan Discharge Prescription List Prescriptions Keflex 500 mg Cap, 500 mg= 1 cap(s), Oral, q12hr Zofran 4 mg Tab, 4 mg= 1 tab(s), Oral, q6hr, PRN Follow-up With When Contact Information Laurent Vieyra In 3 days 08/09/[address], [address] [place] [id number] [facility] (1) Additional Instructions: Patient Education and Urinary Tract Infection Problem List/Past Medical History Ongoing No qualifying data Historical No qualifying data Medications Inpatient No active inpatient medications Home No active home medications Allergies Contrast Dye (Throat swelling) morphine (Irritant contact dermatitis) Lab Results Beta hCG Qnt: 18206 mIU/mL High (08/06/24 09:38:00) UA Spec Desc: Clean Catch (08/06/24 09:38:00) UA Color: Yellow (08/06/24 09:38:00) UA Clarity: Ex.Turbid Abnormal (08/06/24 09:38:00) UA Spec Grav: 1.025 (08/06/24 09:38:00) UA pH: 6.0 (08/06/24 09:38:00) UA Protein: 1+ Abnormal (08/06/24 09:38:00) UA Glucose: Negat (08/06/24 09:38:00) UA Ketones: 1+ Abnormal (08/06/24 09:38:00) UA Bili: Negat (08/06/24 09:38:00) UA Blood: 2+ Abnormal (08/06/24 09:38:00) UA Nitrite: Negat (08/06/24 09:38:00) UA Urobilinogen: Negat (08/06/24 09:38:00) UA Leuk Est: 500 Jessica/uL Abnormal (08/06/24 09:38:00) UA RBC: 21-30 Abnormal (08/06/24 09:38:00) UA Squam Epithelial: >10 (08/06/24 09:38:00) UA WBC: >75 Abnormal (08/06/24 09:38:00) UA Bacteria: 3+ Abnormal (08/06/24 09:38:00) UA Mucous: 2+ Abnormal (08/06/24 09:38:00) UA WBC Clump: 4-10 Abnormal (08/06/24 09:38:00) Diagnostic Results No qualifying data available. Normal [facility] Comment on above: Result Comment: Elec tronically Signed By: Ulises Philip DO\.br\Date and Time Signed: 08/06/24 11:05 EST ED Patient Summaryon 024 ED Patient Summary ED Patient Summary [place] [id number] Patient Discharge Instructions Person Information Name: KWASI HEBERT Age: 23 Years Arrival Date: 08/06/2024 09:17:29 Discharge Diagnosis: Pelvic and perineal pain; Pelvic pain in ; UTI (urinary tract infection); Vomiting Primary Care Physician: REMI ANDREW MD Provider Information Primary Provider: Ulises Philip DO Advanced Vamp Cut Out Worker:None The exam and treatment you received in the Emergency Department were for an urgent problem and are not intended as complete care. It is important that you follow up with a doctor, nurse practitioner, or physician???s client account assistant for ongoing care. If your symptoms become worse or you do not improve as expected and you are unable to reach your usual health care provider, you should return to the Emergency Department. We are available 24 hours a day. ANUP KWASI CHOUDHURYIE has been given the following list of patient education materials, prescriptions and follow-up instructions: Follow-up Instructions: With: Address: When: Laurent Vieyra Connie [address], [address], [place] [address] Business (1) In 3 days 08/09/2024 In the event that this physician does not participate in your insurance network, please consult with your insurance company to find a nearby participating provider. Patient Education Materials: and Urinary Tract Infection A MESSAGE TO ALL PATIENTS REGARDING OPIOIDS PRESCRIPTION OPIOIDS: WHAT YOU NEED TO KNOW Prescription opioids can be used to help relieve niwvwvro-wu-hzpefg pain and are often prescribed following a surgery or injury, or for certain health conditions. These medications can be an important part of the treatment but also come with serious risks. It is important to work with your healthcare provider to make sure you are getting the safest, most effective care. WHAT ARE THE RISKS AND SIDE EFFECTS OF OPIOID USE? Prescription opioids carry serious risks of addiction and overdose, especially with prolonged use. An opioid overdose, often marked by slowed breathing, can cause sudden . The use of prescription opioids can have a number of side effects as well, even when taken as directed: ??? Tolerance???meaning you might need to take more of the medication for the same pain relief ??? Physical dependence???meaning you have symptoms of withdrawal when a medication is stopped ??? Increased sensitivity to pain ??? Constipation ??? Nausea, vomiting, and dry mouth ??? Sleepiness and dizziness ??? Confusion ??? Depression ??? Low levels of testosterone that can result in lower sex drive, energy, and strength ??? Itching and sweating RISKS ARE GREATER WITH: ??? History of drug misuse, substance use disorder, or overdose ??? Mental health conditions (such as depression or anxiety) ??? Sleep apnea ??? Older age (65 years and older) ??? Avoid alcohol while taking prescription opioids. Also, unless specifically advised by your health care provider, medications to avoid include: ??? Benzodiazepines (such as Xanax or Valium) ??? Muscle relaxants (such as Soma or Flexeril) ??? Hypnotics (such as Ambien or Lunesta) ??? Other prescription opioids KNOW YOUR OPTIONS Talk to your health care provider about ways to manage your pain that don???t involve prescription opioids. Some of these options may actually work better and have fewer risks and side effects. Options may include: ??? Pain relievers such as acetaminophen, ibuprofen, and naproxen ??? Some medication that are also used for depression or seizures ??? Physical therapy and exercise ??? Cognitive behavioral therapy, a psychological, goal-directed approach, in which patients learn how to modify physical, behavioral, and emotional triggers of pain and stress. IF YOU ARE PRESCRIBED OPIOIDS FOR PAIN: ??? Never take opioids in greater amounts or more often than prescribed. ??? Follow up with your primary health care provider. o Work together to create a plan on how to manage your pain. o Talk about ways to help manage your pain that don???t involve prescription opioids. o Talk about any and all concerns and side effects. ??? Help prevent misuse and abuse o Never sell or share prescription opioids. o Never use another person???s prescription opioids. ??? Store prescription opioids in a secure place and out of reach of others (this may include visitors, children, friends, and family). ??? Safely dispose of unused prescription opioids: Find your community drug take-back program or your pharmacy mail-back program, or flush them down the toilet, following guidance from the Food and Drug Administration (www.fda.gov/Drugs/Re sourcesForYou). ??? Visit www.cdc.gov/drugoverd ose to learn about the risks of opioids abuse and overdo (more content not included)... Normal [facility] Extra Blueon 08-06-2024 Tube Collected Plasma Yes Invalid Interpretation Code [facility] Comment on above: Performed By: #### 1 [id number] #### [facility] [address] [place] [address] Extra Jose 08-06-2024 WB Tube Collected Yes Invalid Interpretation Code [facility] Comment on above: Performed By: #### 1 [id number] #### [facility] [address] [place] [address] Pre-Arrival Noteon 4 Pre-Arrival Note Pre-Arrival Note Pre-Arrival Summary Name: tom, Current Date: 08/06/2024 09:20:32 EST Gender: Female Date of : Age: Pre-Arrival Type: EMS ETA: 08/06/2024 08:56:00 EST Primary Care Physician: Presenting Problem: R/O ectopic Pre-Arrival User: Ulises Philip DO Referring Source: Location: [place] Completion Date/Time: 08/06/2024 08:56:00 [facility] Emergency Department Pre-Hospital Report Form Vital Signs: 15K, 32K, no US was done, no bleeding, needs an US Pre-Hospital Report: Treatment in Route: Response to Treatment: Misc. Issues: Normal [facility] U Drug Screenon 08-06-2024 Amphetamines Screen method >1000 ng/mL Ql (U) Negative Normal NEGATIVE [facility] Comment on above: Result Comment: Nega tive Cutoff: <1000 ng/mL Performed By: #### 2 [id number] #### [facility] [address] [place] [address] Barbiturates Screen Ql (U) Negative Normal NEGATIVE [facility] Comment on above: Result Comment: Nega tive Cutoff: <200 ng/mL Performed By: #### 2 [id number] #### [facility] [address] [facility] [place] [address] Benzodiazepines Ql (U) Negative Normal NEGATIVE [facility] Comment on above: Result Comment: Nega tive Cutoff: <200 ng/mL Performed By: #### 2 [id number] #### [facility] [address] [facility] [place] [address] Cannabinoids Screen Ql (U) Positive Abnormal NEGATIVE [facility] Comment on above: Result Comment: Nega tive Cutoff: <50 ng/mL Performed By: #### 2 [id number] #### [facility] [address] [facility] [place] [address] Cocaine Ql (U) Negative Normal NEGATIVE [facility] Comment on above: Result Comment: Nega tive Cutoff: <300 ng/mL Performed By: #### 2 [id number] #### [facility] [address] [place] [address] Opiates Screen Ql (U) Negative Normal NEGATIVE [facility] Comment on above: Result Comment: Nega tive Cutoff: <300 ng/mL Performed By: #### 2 [id number] #### [facility] [address] [place] [address] Phencyclidine Screen method >25 ng/mL Ql (U) Negative Normal NEGATIVE [facility] Comment on above: Result Comment: Nega tive Cutoff: <25 ng/mL These drug screen results are to be used for medical (i.e., treatment) purposes only. Unconfirmed drug screening results must not be used for non-medical purposes (e.g., employment testing, legal testing). Performed By: #### 2 [id number] #### [facility] [address] [place] [address] U Fentanyl Negative Normal NEGATIVE [facility] Comment on above: Result Comment: Nega tive Cutoff: <5 ng/mL These drug screen results are to be used for medical (i.e., treatment) purposes only. Unconfirmed drug screening results must not be used for non-medical purposes (e.g., employment testing, legal testing). Performed By: #### 2 [id number] #### [facility] [address] [place] [address] UA with Cult Rflxon 08-06-20 24 Bacteria Auto Ql (U) 3+ /HPF Abnormal Trace Fish er [facility] Comment on above: Performed By: #### 4 [id number] #### [facility] [address] [place] [address] Bilirubin Ql (U) Negative Normal Negative [facility] Comment on above: Performed By: #### 4 [id number] #### [facility] [address] [place] [address] Clarity (U) Ex.Turbid Abnormal Clear [facility] Comment on above: Performed By: #### 4 [id number] #### [facility] [address] [place] [address] Color (U) Yellow Normal Yellow [facility] Comment on above: Result Comment: Micr oscopic readings are only performed on those samples that meet specific criteria set forth by [facility]. Performed By: #### 4 [id number] #### [facility] [address] [place] [address] Epithelial cells.squamous Auto (Urine sed) [#/Area] >10 Invalid Interpretation Code [facility] Comment on above: Performed By: #### 4 [id number] #### [facility] [address] [place] [address] Glucose Ql (U) Negative Normal Negative [facility] Comment on above: Performed By: #### 4 [id number] #### [facility] [address] [place] [address] Hemoglobin Auto test strip (U) [Mass/Vol] 2+ mg/dL Abnormal Negative [facility] Comment on above: Performed By: #### 4 [id number] #### [facility] [address] [place] [address] Ketones Auto test strip Ql (U) 1+ mg/dL Abnormal Negative [facility] Comment on above: Performed By: #### 4 [id number] #### [facility] [address] [place] [address] Leukocyte clumps Auto (Urine sed) [#/Area] 4-10 Abnormal [facility] Comment on above: Performed By: #### 4 [id number] #### [facility] [address] [place] [address] Leukocyte esterase Auto test strip Ql (U) 500 Jessica/uL Abnormal Negative [facility] Comment on above: Performed By: #### 4 [id number] #### [facility] [address] [place] [address] Mucus Auto Ql (U) 2+ CD:[id number] Abnormal Negative [facility] Comment on above: Performed By: #### 4 [id number] #### [facility] [address] [place] [address] Nitrite Auto test strip Ql (U) Negative Normal Negative [facility] Comment on above: Performed By: #### 4 [id number] #### [facility] [address] [place] [address] pH (U) 6.0 [pH] Invalid Interpretation Code 5.0-9.0 [facility] Comment on above: Performed By: #### 4 [id number] #### [facility] [address] [place], [place] [id number] Protein Ql (U) 1+ mg/dL Abnormal Negative [facility] Comment on above: Performed By: #### 4 [id number] #### [facility] [address] [place], [place] [address] RBC Ql (U) 21-30 Abnormal 0-3 [facility] Comment on above: Performed By: #### 4 [id number] #### [facility] [address] [place], [place] [address] Specific gravity (U) [Rel density] 1.025 Invalid Interpretation Code 1.005-1.030 [facility] Comment on above: Performed By: #### 4 [id number] #### [facility] [address] [place], [place] [address] Urobilinogen (U) [Mass/Vol] Negative Normal Negative [facility] Comment on above: Performed By: #### 4 [id number] #### [facility] [address] [place] [address] WBC Auto (Urine sed) [#/Area] >75 Abnormal 0-5 [facility] Comment on above: Performed By: #### 4 [id number] #### [facility] [address] [place] [address] Type of Urine collection method Clean Catch Normal [facility] Comment on above: Performed By: #### 4 [id number] #### [facility] [address] [place] [address] URINALYSISOrdered By: SYSTEM SYSTEM on 08-06-2024 Bacteria Auto Ql (U) 3+ /HPF Invalid Interpretation Code Trace/HPF [facility] UA Auto SS Bilirubin Ql (U) Negative Normal Negativemg/ dL [facility] UA Auto SS Clarity (U) Ex.Turbid *ABN* (08/06/24 9:38 AM) Invalid Interpretation Code Clear [facility] UA Auto SS Color (U) Yellow 1 (08/06/24 9:38 AM) Normal Yellow [facility] UA Auto SS Comment on above: Interpretive Data: M icroscopic readings are only performed on those samples that meet specific criteria set forth by [facility]. Epithelial cells.squamous Auto (Urine sed) [#/Area] >10 graded/HPF Invalid Interpretation Code [facility] UA Auto SS Glucose Ql (U) Negative Normal Negativemg/ dL [facility] UA Auto SS Hemoglobin Auto test strip (U) [Mass/Vol] 2+ mg/dL Invalid Interpretation Code Negativemg/ dL [facility] UA Auto SS Ketones Auto test strip Ql (U) 1+ mg/dL Invalid Interpretation Code Negativemg/ dL [facility] UA Auto SS Leukocyte clumps Auto (Urine sed) [#/Area] 4-10 graded/HPF Invalid Interpretation Code [facility] UA Auto SS Leukocyte esterase Auto test strip Ql (U) 500 Jessica/uL Jessica/uL Invalid Interpretation Code NegativeLeu /uL [facility] UA Auto SS Mucus Auto Ql (U) 2+ graded/LPF Invalid Interpretation Code Negativegra ded/LPF [facility] UA Auto SS Nitrite Auto test strip Ql (U) Negative Normal Negativemg/ dL [facility] UA Auto SS pH (U) 6.0 *NA* (08/06/24 9:38 AM) Invalid Interpretation Code 5.0 - 9.0 [facility] UA Auto SS Protein Ql (U) 1+ mg/dL Invalid Interpretation Code Negativemg/ dL [facility] UA Auto SS RBC Ql (U) 21-30 graded/HPF Invalid Interpretation Code 0-3graded/H PF [facility] UA Auto SS Specific gravity (U) [Rel density] 1.025 *NA* (08/06/24 9:38 AM) Invalid Interpretation Code 1.005 - 1.030 [facility] UA Auto SS Urobilinogen (U) [Mass/Vol] Negative Normal Negativemg/ dL [facility] UA Auto SS WBC Auto (Urine sed) [#/Area] >75 graded/HPF Invalid Interpretation Code 0-5graded/H PF [facility] UA Auto SS URINALYSISOrdered By: Ulises leonardo on 08-06-2024 UA Spec Desc Clean Catch (08/06/24 9:38 AM) Normal [facility]A Auto SS Work Phone: US 1st Trimesteron 08-06-2024 US 1st Trimester Exam Date/Time: 08/06/2024 10:45 EST Reason for Exam: Threatened Miscarriage;Other (please specify) Report IMPRESSION: SINGLE LIVE INTRAUTERINE CORRESPONDING TO Composite Ultrasound Age: 6 weeks, 0 days, +/- 1 week. NO OTHER FINDINGS OF CONCERN IDENTIFIED. EXAM: US 1st Trimester, US Transvaginal DATE: 08/06/2024 10:18 AM CLINICAL HISTORY: Threatened Miscarriage. LMP: 06/24/2024. Gestational Age by LMP: 6 weeks, 1 days COMPARISON: None available for this . TECHNIQUE: Transabdominal ultrasound was performed to visualize the entirety of the pelvis. Transvaginal scanning was performed to provide better detail of the uterus and ovaries. FINDINGS: An approximately 2 cm gestational sac is present within the central aspect of the uterine body/fundus, without significant surrounding subchorionic hemorrhage. [place] Rump Length: 0.3 cm, which corresponds Composite Ultrasound Age: 6 weeks, 0 days, +/- 1 week. The estimated date of delivery by measurements is: TIFFANIE from average ultrasound age: 0804/01/2025. The TIFFANIE from LMP: 03/31/2025. cardiac activity measures approximately 109 bpm, without visualized arrhythmia. There is no significant free fluid, or other findings of concern identified. The uterus is otherwise unremarkable in appearance. Both ovaries appear within normal limits. Equivalent blood flow is demonstrated on Doppler analysis. The uterus measurements and an estimated volume are: Uterus Length: 7.8 cm Uterus Width: 6.3 cm Uterus Height: 5.6 cm Uterus Volume: 143.8 cm3 Report The right ovary measurements and estimated volume are: Right Ovary Length: 2.6 cm, Right Ovary Length: 3.9 cm Right Ovary Width: 2.1 cm, Right Ovary Width: 2.7 cm Right Ovary Height: 3.4 cm, Right Ovary Height: 3.2 cm Right Ovary Volume: 9.8 cm3,Right Ovary Volume: 17.9 cm3 The left ovary measurements and estimated volume are: Left Ovary Length: 4.0 cm, Left Ovary Length: 2.8 cm Left Ovary Width: 3.6 cm, Left Ovary Width: 2.0 cm Left Ovary Height: 2.7 cm, Left Ovary Height: 2.8 cm Left Ovary Volume: 19.8 cm3,Left Ovary Volume: 7.9 cm3 Ordering Provider: Ulises Philip FINAL REPORT Dictated: 08/06/2024 11:48 am Abdelrahman Jaimes MD Signed (Electronic Signature): 08/06/2024 11:48 am Signed by: Abdelrahman Jaimes MD Transcribed by: CARLOS A Technologist: RAJ Technical Comments LMP : 06/24/24 History 2 Para 0 SAB 1 Transabdominal Ultrasound Performed Transvaginal Ultrasound Performed Size = Dates Normal [facility] US Transvaginalon 08-06-2024 US Transvaginal Exam Date/Time: 08/06/2024 10:46 EST Reason for Exam: Pelvic pain Report PLEASE SEE US 1st Trimester REPORT DATED: 08/06/2024. Ordering Provider: Ulises Philip FINAL REPORT Dictated: 08/06/2024 12:08 pm Abdelrahman Jaimes MD Signed (Electronic Signature): 08/06/2024 12:08 pm Signed by: Abdelrahman Jaimes MD Transcribed by: CARLOS A Technologist: RAJ Normal [facility] ABO/Rhon 08-05-2024 ABO/Rh Positive Invalid Interpretation Code [facility] Comment on above: Performed By: #### 2 [id number] #### [facility] [address] [place] [address] ABSCon 08-05-2024 ABSC Gel Interp Negative Normal [facility] Comment on above: Performed By: #### 1 [id number] #### [facility] [address] [place] [address] BLOOD BANKOrdered By: Velasquez Mcdaniel on 08-05-2024 ABO/Rh Interp Positive Invalid Interpretation Code [facility] Subsection ABSC Gel Interp Negative (08/05/24 4:16 PM) Normal [facility] Subsection CBC w/ Auto Diffon Basophils/100 WBC (Bld) 1.1 % Normal 0.0-2.0 [facility] Comment on above: Performed By: #### 2 [id number] #### [facility] [address] [place] [address] Basophils/Leukocytes Auto (Bld) [Pure # fraction] 0.1 E9/L Normal 0.0-0.2 [facility] Comment on above: Performed By: #### 2 [id number] #### [facility] [address] [place] [address] Eosinophils (Bld) [#/Vol] 0.0 E9/L Normal 0.0-0.5 [facility] Comment on above: Performed By: #### 2 [id number] #### [facility] [address] [place] [address] Eosinophils/100 WBC (Bld) 0.4 % Normal 0.0-8.0 [facility] Comment on above: Performed By: #### 2 [id number] #### [facility] [address] [place] [address] Erythrocyte distribution width (RBC) [Ratio] 13.5 % Normal 10.9-14.2 [facility] Comment on above: Performed By: #### 2 [id number] #### [facility] [address] [place] [address] Hematocrit (Bld) [Volume fraction] 41.9 % Normal 34.0-46.0 [facility] Comment on above: Performed By: #### 2 [id number] #### [facility] [address] [place] [address] Hemoglobin (Bld) [Mass/Vol] 14.7 g/dL Normal 12.0-16.0 [facility] Comment on above: Performed By: #### 2 [id number] #### [facility] [address] [place] [address] Lymphocytes (Bld) [#/Vol] 1.9 E9/L Normal 1.0-4.0 [facility] Comment on above: Performed By: #### 2 [id number] #### [facility] [address] [place] [address] Lymphocytes/100 WBC (Bld) 22.5 % Normal 14.0-50.0 [facility] Comment on above: Performed By: #### 2 [id number] #### [facility] [address] [place] [address] MCH (RBC) [Entitic mass] 31.1 pg Normal 27.0-34.0 [facility] Comment on above: Performed By: #### 2 [id number] #### [facility] [address] [place] [address] MCHC (RBC) [Mass/Vol] 35.1 g/dL Normal 31.4-36.[address] [facility] Comment on above: Performed By: #### 2 [id number] #### [facility] [address] [place] [address] MCV (RBC) [Entitic vol] 88.8 fL Normal 80.0-100.0 [facility] Comment on above: Performed By: #### 2 [id number] #### [facility] [address] [place] [address] Monocytes (Bld) [#/Vol] 0.7 E9/L Normal 0.2-1.0 [facility] Comment on above: Performed By: #### 2 [id number] #### [facility] [address] [place] [address] Neutrophils (Bld) [#/Vol] 5.9 E9/L Normal 2.0-7.5 [facility] Comment on above: Performed By: #### 2 [id number] #### [facility] [address] [place] [address] Neutrophils/100 WBC (Bld) 68.4 % Normal 36.0-75.0 [facility] Comment on above: Performed By: #### 2 [id number] #### [facility] [address] [place] [address] Platelet mean volume (Bld) [Entitic vol] 9.4 fL Normal 6.4-10.8 [facility] Comment on above: Performed By: #### 2 [id number] #### [facility] [address] [place] [address] Platelets (Bld) [#/Vol] 234.0 E9/L Normal 150.0-500.0 [facility] Comment on above: Performed By: #### 2 067559 #### [facility] [address] [place] [address] RBC (Bld) [#/Vol] 4.7 E12/L Normal 4.3-5.9 [facility] Comment on above: Performed By: #### 2 [id number] #### [facility] [address] [place] [address] WBC corrected for nucl RBC Auto (Bld) [#/Vol] 8.6 E9/L Normal 4.0-11.0 [facility] Comment on above: Performed By: #### 2 [id number] #### [facility] [address] [place] [address] CHEMISTRYOrdered By: SYSTEM SYSTEM on 08-05-2024 Progesterone Lvl 18.59 ng/mL Invalid Interpretation Code [facility] Comment on above: Result Comment: 'F N ON FOLLICULAR = 0.10 - 0.60' 'LUTEAL = 3.00 - 17.5' 'MIDLUTEAL = 3.30 - 18.6' 'POST-MENOPAUSE = 0.10 - 0.40' '-FIRST TRIMESTER = 8.30 - 66.5' 'SECOND TRIMESTER = 18.9 - 66.1' 'THIRD TRIMESTER = 35.8 - 312.4' 'MALES = 0.14 - 2.06' HEMATOLOGYOrdered By: SYSTEM SYSTEM on 08-05-2024 Basophils/100 WBC (Bld) 1.1 % Normal 0.0 - 2.0 % [facility] Basophils/Leukocytes Auto (Bld) [Pure # fraction] 0.1 E9/L Normal 0.0 - 0.2 E9/L [facility] Eosinophils (Bld) [#/Vol] 0.0 E9/L Normal 0.0 - 0.5 E9/L [facility] Eosinophils/100 WBC (Bld) 0.4 % Normal 0.0 - 8.0 % [facility] Erythrocyte distribution width (RBC) [Ratio] 13.5 % Normal 10.9 - 14.2 % [facility] Hematocrit (Bld) [Volume fraction] 41.9 % Normal 34.0 - 46.0 % [facility] Hemoglobin (Bld) [Mass/Vol] 14.7 g/dL Normal 12.0 - 16.0 gm/dL [facility] Lymphocytes (Bld) [#/Vol] 1.9 E9/L Normal 1.0 - 4.0 E9/L [facility] Lymphocytes/100 WBC (Bld) 22.5 % Normal 14.0 - 50.0 % [facility] MCH (RBC) [Entitic mass] 31.1 pg Normal 27. 0 - 34.0 pg [facility] MCHC (RBC) [Mass/Vol] 35.1 g/dL Normal 31.4 - 36.0 gm/dL [facility] MCV (RBC) [Entitic vol] 88.8 fL Normal 80.0 - 100.0 fL [facility] Monocytes (Bld) [#/Vol] 0.7 E9/L Normal 0.2 - 1.0 E9/L [facility] Monocytes/100 WBC (Bld) 7.6 % Normal 4.0 - 14.0 % [facility] Neutrophils (Bld) [#/Vol] 5.9 E9/L Normal 2.0 - 7.5 E9/L [facility] Neutrophils/100 WBC (Bld) 68.4 % Normal 36.0 - 75.0 % [facility] Platelet mean volume (Bld) [Entitic vol] 9.4 fL Normal 6.4 - 10.8 fL [facility] Platelets (Bld) [#/Vol] 234.0 E9/L Normal 150. 0 - 500.0 E9/L [facility] RBC (Bld) [#/Vol] 4.7 E12/L Normal 4.3 - 5.9 E12/L [facility] WBC corrected for nucl RBC Auto (Bld) [#/Vol] 8.6 E9/L Normal 4.0 - 11.0 E9/L [facility] Progesteroneon 08-05-2024 Progesterone Lvl 18.59 ng/mL Invalid Interpretation Code [facility] Comment on above: Result Comment: 'F N ON FOLLICULAR = 0.10 - 0.60' 'LUTEAL = 3.00 - 17.5' 'MIDLUTEAL = 3.30 - 18.6' 'POST-MENOPAUSE = 0.10 - 0.40' '-FIRST TRIMESTER = 8.30 - 66.5' 'SECOND TRIMESTER = 18.9 - 66.1' 'THIRD TRIMESTER = 35.8 - 312.4' 'MALES = 0.14 - 2.06' Performed By: #### 2 [id number] #### [facility] [address] [place] [address] TBH PREG QUANT HCGon 024 HCG QUANTITATIVE 356[address] mIU/mL [facility] Comment on above: 5-50 0.2-1 WEEK 50-500 1-2 WEEKS 100-5,000 2-3 WEEKS 500-10,000 3-4 WEEKS 1,000-50,000 4-5 WEEKS 10,000-100,000 5-6 WEEKS 15,000-200,000 6-8 WEEKS 10,000-100,000 2-3 [facility] [employer] BRIVARACETAM SERPL-MCNCon BRIVARACETAM SERPL-MCNC 1.2 ug/mL 0.2 - 2.0 ug/mL [facility] Comment on above: This test was develo ped, and its performance characteristics determined by the [facility] Department of Pathology and Laboratory Medicine. It has not been cleared or approved by the FDA. The [facility] Department of Pathology and Laboratory Medicine is regulated under CLIA as qualified to perform high-complexity testing. This test is used for clinical purposes. It should not be regarded as investigational or for research. Specimen Type: BLOOD SPECIMEN Ordering Facility: [facility] Address: [address] [place] [address] Original Ordering Provider: CLAUDIO VAZQUEZ [facility] [employer] Brivaracetam SerPl-mCncon Brivaracetam [Mass/Vol] 1.2 ug/mL Normal 0.2-2.0 [facility] Comment on above: Order Comment: Speci men Type: BLOOD SPECIMEN Ordering Facility: [facility] Address: [address] [place] [address] Result Comment: This test was developed, and its performance characteristics determined by the [facility] Department of Pathology and Laboratory Medicine. It has not been cleared or approved by the FDA. The [facility] Department of Pathology and Laboratory Medicine is regulated under CLIA as qualified to perform high-complexity testing. This test is used for clinical purposes. It should not be regarded as investigational or for research. Performed By: #### 8 [id number] #### [facility] CLIA [id number] [address] [place] [address] [facility] CNPNon 07-25-2024 CNPN Telephone (NE50MN) KWASI HEBERT ([id number]) 4 F Date Time Provider Department 07/25/24 ROBERT MARIN NE50MN During your visit today, we recorded the following information about you: Esmer Gisell 07/25/2024 3:04 PM Signed Medication Concern Person Calling: Kwasi Hebert Name of medication: Briviact Concern with medication: Patient recently found out she is - approx. 3-4 weeks. 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] Order(s):BRIVARACETAM [SQBRIV] Order #: [id number] FUTURE CONSULT TO [facility] PHARMACY [[id number]] Order #: [id number]: 1 Prescriptions as of 07/25/2024 - brivaracetam [...] Encounter Status:Closed by ALBIN MAJOR on 07/25/24 [facility] 05-31-2024 CNPN Telephone (NE50MN) KWASI HEBERT ([id number]) 4 F Date Time Provider Department 05/31/24 ROBERT MARIN NE50MN During your visit today, we recorded the following information about you: Kathy Wiley 05/31/2024 12:24 PM Signed Form received: From (agency / facility): [employer] 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 Marin Forwarded to nurse. Tahira Colunga, CHERYL 05/31/2024 2:05 PM Signed Last visit: 07/24/23 Next visit: 06/10/24 ASM: NEEDS VERIFIED WITH PATIENT Oxcarbazepine 600mg AM and 900mg PM Last labs: 2022 Seizure onset: 6 yrs ago Last seizure: NEEDS VERIFIED WITH PATIENT Call to pt no answer, msg left. [employer] message sent. CHERYL Pedraza Lynn, RN 06/03/2024 9:16 AM Signed Appointment 06/10/24 CHERYL Gray Lynn, RN 06/10/2024 11:24 AM Signed Patient cleared for driving from Dr. Marin in appointment today. BMV form completed and routed to Dr. Marin for signature thru docusign One copy faxed to [facility] [place] One copy faxed to [facility] One copy emailed to patient, email on [...] Status:Closed by TAHIRA COLUNGA on 05/31/24 Normal [facility] Alanine aminotransferase [En zymatic activity/volume] in Serum or PlasmaOrdered By: Christie Aldana on 03-28-2024 ALT [Catalytic activity/Vol] 12 U/L Normal 7-52 [facility] Comment on above: Performed By: #### T SH3, T4F, CBC, CMP, B12, LIPID, [id number] #### [facility] [address] [place] [address] [place] Albumin [Mass/volume] in Ser um or Plasma by Bromocresol green (BCG) dye binding methoOrdered By: Christie Aldana on 03-28-2024 Albumin BCG dye [Mass/Vol] 4.6 g/dL 3.5-5.7 [facility] Alkaline phosphatase [Enzyma tic activity/volume] in Serum or PlasmaOrdered By: Christie Aldana on 03-28-2024 ALP [Catalytic activity/Vol] 59 U/L Normal 34-104 [facility] Comment on above: Performed By: #### T SH3, T4F, CBC, CMP, B12, LIPID, [id number] #### [facility] [address] [place] [id number] [place] Aspartate aminotransferase [ Enzymatic activity/volume] in Serum or PlasmaOrdered By: Christie Aldana on 03-28-2024 AST [Catalytic activity/Vol] 15 U/L Normal 13-39 [facility] Comment on above: Performed By: #### T SH3, T4F, CBC, CMP, B12, LIPID, [id number] #### [facility] [address] [place] [id number] [place] Automated basophil %Ordered By: Christie Aldana on 03-28-2024 Basophils/100 WBC (Bld) 1.2 % Normal . [facility] Comment on above: Performed By: #### T SH3, T4F, CBC, CMP, B12, LIPID, [id number] #### [facility] [address] Automated basophil countOrde red By: Christie Aldana on 03-28-2024 Basophils (Bld) [#/Vol] 0.1 10*3/uL Normal 0.0-0.2 [facility] Comment on above: Result Comment: PERF ORMED BY: [place] [address] PATHOLOGIST MEDICAL RECORD RETRIEVAL SPECIALIST JUAN GALVEZ M.D. Performed By: #### T SH3, T4F, CBC, CMP, B12, LIPID, [id number] #### [address] Automated blood monocyte cou ntOrdered By: Christie Aldana on 03-28-2024 Monocytes (Bld) [#/Vol] 0.3 10*3/uL Normal 0.0-0.8 [facility] Comment on above: Performed By: #### T SH3, T4F, CBC, CMP, B12, LIPID, [id number] #### [address] Automated eosinophil %Ordere d By: Christie Aldana on 03-28-2024 Eosinophils/100 WBC (Bld) 3.7 % Normal . [facility] Comment on above: Performed By: #### T SH3, T4F, CBC, CMP, B12, LIPID, [id number] #### [facility] [address] Automated eosinophil countOr dered By: Christie Aldana on 03-28-2024 Eosinophils (Bld) [#/Vol] 0.2 10*3/uL Normal 0.0-0.45 [facility] Comment on above: Performed By: #### T SH3, T4F, CBC, CMP, B12, LIPID, [id number] #### [facility] [address] Automated monocyte %Ordered By: Christiekaren Aldana on 03-28-2024 Monocytes/100 WBC (Bld) 7.4 % Normal . [facility] Comment on above: Performed By: #### T SH3, T4F, CBC, CMP, B12, LIPID, [id number] #### [facility] [address] Automated neutrophil %Ordere d By: Christiekaren Aldana on 03-28-2024 Neutrophils/100 WBC (Bld) 51.7 % Normal . [facility] Comment on above: Performed By: #### T SH3, T4F, CBC, CMP, B12, LIPID, [id number] #### [address] Bilirubin.total [Mass/volume ] in Serum or PlasmaOrdered By: Christie Aldana on 03-28-2024 Bilirubin [Mass/Vol] 0.4 mg/dL Normal 0.3-1.0 [facility] Comment on above: Performed By: #### T SH3, T4F, CBC, CMP, B12, LIPID, [id number] #### [address] Calcium [Mass/volume] in Ser um or PlasmaOrdered By: Christie Aldana on 03-28-2024 Calcium [Mass/Vol] 9.6 mg/dL Normal 8.6-10.3 [facility] Comment on above: Performed By: #### T SH3, T4F, CBC, CMP, B12, LIPID, [id number] #### [facility] [address] Carbon dioxide, total [Moles /volume] in Serum or PlasmaOrdered By: Christie Aldana on 03-28-2024 CO2 [Moles/Vol] 32.0 mmol/L High 21.0-31.0 [facility] Comment on above: Performed By: #### T SH3, T4F, CBC, CMP, B12, LIPID, [id number] #### [place] [id number] [place] Chloride [Moles/volume] in S nury or PlasmaOrdered By: Christie Aldana on 03-28-2024 Chloride [Moles/Vol] 104 mmol/L Normal 98-107 [facility] Comment on above: Performed By: #### T SH3, T4F, CBC, CMP, B12, LIPID, [id number] #### [facility] [address] [place] [id number] [place] Cholesterol [Mass/volume] in Serum or PlasmaOrdered By: Christie Aldana on 03-28-2024 Cholesterol [Mass/Vol] 171 mg/dL Normal 140-200 [facility] Comment on above: Chol less than 200 m g/dl low riskChol 201-239 mg/dl borderline riskChol 240 mg/dl and greater high risk Result Comment: Chol less than 200 mg/dl low risk Chol 201-239 mg/dl borderline risk Chol 240 mg/dl and greater high risk Performed By: #### T SH3, T4F, CBC, CMP, B12, LIPID, [id number] #### [facility] [address] [place] [id number] [place] Cholesterol in LDL Calc [Mas s/Vol]Ordered By: Christie Aldana on 03-28-2024 Cholesterol in LDL [Mass/Vol] 118 mg/dL High 0-100 [facility] Comment on above: LDL ATP III CLASSIFI CATIONLDL less than 100 mg/dL OptimalLDL 100-129 mg/dL Near or above optimalLDL 130-159 mg/dL Borderline highLDL 160-189 mg/dL HighLDL greater than 189 mg/dL Very high Cholesterol in VLDL Calc [Ma ss/Vol]Ordered By: Christie Aldana on 03-28-2024 Cholesterol in VLDL [Mass/Vol] 12 mg/dL [facility] Complete Blood Count Auto Di ffon 03-28-2024 Mean Corpuscular HGB Conc 33.0 g/dL Normal 32.0-35.0 [facility] Comment on above: Performed By: #### T SH3, T4F, CBC, CMP, B12, LIPID, [id number] #### [facility] [address] [place] [address] [place] NRBC% 0.1 /100{WBC} Normal 0-0.5 [facility] Comment on above: Performed By: #### T SH3, T4F, CBC, CMP, B12, LIPID, [id number] #### [address] Comprehensive Metabolic Pane manjit 03-28-2024 Albumin [Mass/Vol] 4.6 g/dL Normal 3.5-5.7 [facility] Comment on above: Performed By: #### T SH3, T4F, CBC, CMP, B12, LIPID, [id number] #### [address] GFR/1.73 sq M.predicted MDRD (S/P/Bld) [Vol rate/Area] mL/min/{1.73_m2} Normal [facility] Comment on above: Performed By: #### T SH3, T4F, CBC, CMP, B12, LIPID, [id number] #### [address] Creatinine [Mass/volume] in Serum or PlasmaOrdered By: Christie Aldana on 03-28-2024 Creatinine [Mass/Vol] 0.92 mg/dL Normal 0.60-1.20 [facility] Comment on above: Performed By: #### T SH3, T4F, CBC, CMP, B12, LIPID, [id number] #### [address] Erythrocyte distribution wid th [Ratio] by Automated countOrdered By: Christie Aldana on 03-28-2024 Erythrocyte distribution width (RBC) [Ratio] 13.9 % Normal 11.9-15.3 [facility] Comment on above: Performed By: #### T SH3, T4F, CBC, CMP, B12, LIPID, [id number] #### [address] Erythrocytes [#/volume] in B lood by Automated countOrdered By: Christie Aldana on 03-28-2024 RBC (Bld) [#/Vol] 4.63 10*6/uL Normal 3.60-5.[address] [facility] Comment on above: Performed By: #### T SH3, T4F, CBC, CMP, B12, LIPID, [id number] #### [facility] [address] Glucose [Mass/volume] in Ser um or PlasmaOrdered By: Christie Aldana on 03-28-2024 Glucose [Mass/Vol] 80 mg/dL Normal 70-100 [facility] Comment on above: ADA recommended refe rence rangeRandom Glucose Reference Range is dependent on time and content of last meal. Glucose of more than 200 mg/dL in a nonstressed, ambulatory subject supports the diagnosis of Diabetes Mellitus. Result Comment: [place] om Glucose Reference Range is dependent on time and content of last meal. Glucose of more than 200 mg/dL in a nonstressed, ambulatory subject supports the diagnosis of Diabetes Mellitus. ADA recommended reference range Performed By: #### T SH3, T4F, CBC, CMP, B12, LIPID, [id number] #### [facility] [address] Hematocrit [Volume Fraction] of Blood by Automated countOrdered By: Christie Aldana on 03-28-2024 Hematocrit (Bld) [Volume fraction] 41.6 % Normal 34.0-46.4 [facility] Comment on above: Performed By: #### T SH3, T4F, CBC, CMP, B12, LIPID, [id number] #### [facility] [address] Hemoglobin [Mass/volume] in BloodOrdered By: Christie Aldana on 03-28-2024 Hemoglobin (Bld) [Mass/Vol] 13.7 g/dL Normal 11.8-15.4 [facility] Comment on above: Performed By: #### T SH3, T4F, CBC, CMP, B12, LIPID, [id number] #### [address] Leukocytes [#/volume] correc deni for nucleated erythrocytes in Blood by Automated counOrdered By: Christie Aldana on 03-28-2024 WBC corrected for nucl RBC Auto (Bld) [#/Vol] 4.5 10*3/uL 3.8-11.6 [facility] Leukocytes [#/volume] in Blo od by Automated countOrdered By: Christie Aldana on 03-28-2024 WBC (Bld) [#/Vol] 4.5 10*3/uL Normal 3.8-11.6 [facility] Comment on above: Performed By: #### T SH3, T4F, CBC, CMP, B12, LIPID, [id number] #### [facility] [address] Lipid Panelon 03-28-2024 LDL Cholesterol,Calculated 118 mg/dL High 0-100 [facility] Comment on above: Result Comment: LDL ATP III CLASSIFICATION LDL less than 100 mg/dL Optimal LDL 100-129 mg/dL Near or above optimal LDL 130-159 mg/dL Borderline high LDL 160-189 mg/dL High LDL greater than 189 mg/dL Very high Performed By: #### T SH3, T4F, CBC, CMP, B12, LIPID, [id number] #### [facility] [address] Triglyceride w/Reflex 63 mg/dL Normal 0-149 [facility] Comment on above: Result Comment: TRIG ATP III CLASSIFICATION TRIG less than 150 mg/dL Normal TRIG 150-199 mg/dL Borderline high TRIG 200-500 mg/dL High TRIG greater than 500 mg/dL Very high Standard traceable to the Center for Disease Conrtrol and Prevention (CDC) test method. Performed By: #### T SH3, T4F, CBC, CMP, B12, LIPID, [id number] #### [facility] [address] VLDL CHOLESTEROL 12 mg/dL Normal [facility] Comment on above: Performed By: #### T SH3, T4F, CBC, CMP, B12, LIPID, [id number] #### [facility] [address] [place] [id number] [facility] Lymphocytes [#/volume] in Bl ood by Automated countOrdered By: Christie Aldana on 03-28-2024 Lymphocytes (Bld) [#/Vol] 1.6 10*3/uL Normal 1.00-4.8 [facility] Comment on above: Performed By: #### T SH3, T4F, CBC, CMP, B12, LIPID, [id number] #### [facility] [address] Lymphocytes/100 leukocytes i n Blood by Automated countOrdered By: Christie Aldana on 03-28-2024 Lymphocytes/100 WBC (Bld) 36.0 % Normal . [facility] Comment on above: Performed By: #### T SH3, T4F, CBC, CMP, B12, LIPID, [id number] #### [facility] [address] [place] [address] MCH [Entitic mass] by Automa deni countOrdered By: Christie Aldana on 03-28-2024 MCH (RBC) [Entitic mass] 29.7 pg Normal 24.7-34.3 [facility] Comment on above: Performed By: #### T SH3, T4F, CBC, CMP, B12, LIPID, [id number] #### [address] MCHC Auto (RBC) [Mass/Vol]Or dered By: Christie Aldana on 03-28-2024 MCHC (RBC) [Mass/Vol] 33.0 g/dL 32.0-35.0 [facility] MCV [Entitic volume] by Auto mated countOrdered By: Christie Aldana on 03-28-2024 MCV (RBC) [Entitic vol] 89.9 fL Normal 80-100 [facility] Comment on above: Performed By: #### T SH3, T4F, CBC, CMP, B12, LIPID, [id number] #### [facility] [address] [place] [address] Neutrophils [#/volume] in Bl ood by Automated countOrdered By: Christie Aldana on 03-28-2024 Neutrophils (Bld) [#/Vol] 2.3 10*3/uL Normal 1.8-7.7 [facility] Comment on above: Performed By: #### T SH3, T4F, CBC, CMP, B12, LIPID, [id number] #### [facility] [address] No Panel InformationOrdered By: Christie Aldana on 03-28-2024 Estimated GFR (CKD-EPI) > 60.0 mL/Min [facility] Creatinine Clearance (Chem N/A [facility] Nucleated erythrocytes [Pres ence] in Blood by Automated countOrdered By: Christie Aldana on 03-28-2024 Nucleated RBC Auto Ql (Bld) 0.1 /100{WBC} 0-0.5 [facility] Platelet mean volume [Entiti c volume] in Blood by Automated countOrdered By: Christie Aldana on 03-28-2024 Platelet mean volume (Bld) [Entitic vol] 9.5 fL Normal 6.3-10.7 [facility] Comment on above: Performed By: #### T SH3, T4F, CBC, CMP, B12, LIPID, [id number] #### [facility] [address] Platelets [#/volume] in Bloo d by Automated countOrdered By: Christie Aldana on 03-28-2024 Platelets (Bld) [#/Vol] 201 10*3/uL Normal 150-450 [facility] Comment on above: Performed By: #### T SH3, T4F, CBC, CMP, B12, LIPID, [id number] #### [facility] [address] [place] [address] [place] Potassium [Moles/volume] in Serum or PlasmaOrdered By: Christie Aldana on 03-28-2024 Potassium [Moles/Vol] 4.4 mmol/L Normal 3.5-5.1 [facility] Comment on above: Performed By: #### T SH3, T4F, CBC, CMP, B12, LIPID, [id number] #### [facility] [address] [place] [address] Protein [Mass/volume] in Ser um or PlasmaOrdered By: Christie Aldana on 03-28-2024 Protein [Mass/Vol] 6.8 g/dL Normal 6.4-8.9 [facility] Comment on above: Performed By: #### T SH3, T4F, CBC, CMP, B12, LIPID, [id number] #### [facility] [address] Serum globulin measurement b y calculation (mass/volume)Ordered By: Christie Aldana on 03-28-2024 Globulin (S) [Mass/Vol] 2.2 g/dL Normal [facility] Comment on above: Performed By: #### T SH3, T4F, CBC, CMP, B12, LIPID, [id number] #### [address] Serum or plasma albumin/glob ulin mass ratioOrdered By: Christie Aldana on 03-28-2024 Albumin/Globulin [Mass ratio] 2.1 {ratio} Normal [facility] Comment on above: Performed By: #### T SH3, T4F, CBC, CMP, B12, LIPID, [id number] #### [address] Serum or plasma anion gap de terminationOrdered By: Christie Aldana on 03-28-2024 Anion gap [Moles/Vol] 8.4 mmol/L Normal 6.0-15.0 [facility] Comment on above: Performed By: #### T SH3, T4F, CBC, CMP, B12, LIPID, [id number] #### [address] Serum or plasma high density lipoprotein (HDL) cholesterol measurementOrdered By: Christie Aldana on 03-28-2024 Cholesterol in HDL [Mass/Vol] 40 mg/dL Normal 23-92 [facility] Comment on above: HDL CHOL ATP-III CLA SSIFICATION Cardiovascular RiskHDL > or equal to 60 mg/dL LOWHDL < 40 mg/dL HIGH Result Comment: HDL CHOL ATP-III CLASSIFICATION Cardiovascular Risk HDL > or equal to 60 mg/dL LOW HDL < 40 mg/dL HIGH Performed By: #### T SH3, T4F, CBC, CMP, B12, LIPID, [id number] #### [address] Serum or plasma total choles terol/high density lipoprotein (HDL) cholesterol mass ratOrdered By: Christie Aldana on 03-28-2024 Cholesterol.total/Choles terol in HDL [Mass ratio] 4.3 {ratio} Normal <5.0 [facility] Comment on above: Performed By: #### T SH3, T4F, CBC, CMP, B12, LIPID, [id number] #### [facility] [address] [place] [address] [place] Sodium [Moles/volume] in Ser um or PlasmaOrdered By: Christie Aldana on 03-28-2024 Sodium [Moles/Vol] 140 mmol/L Normal 136-145 [facility] Comment on above: Performed By: #### T SH3, T4F, CBC, CMP, B12, LIPID, [id number] #### [facility] [address] [place] [address] Thyrotropin [Units/volume] i n Serum or PlasmaOrdered By: Christie Aldana on 03-28-2024 TSH Qn 1.25 m[IU]/L Normal 0.45-5.33 [facility] Comment on above: Performed By: #### T SH3, T4F, CBC, CMP, B12, LIPID, [id number] #### [place] [address] [place] Thyroxine (T4) free [Mass/vo lume] in Serum or PlasmaOrdered By: Christie Aldana on 03-28-2024 Free T4 [Mass/Vol] 0.92 ng/dL Normal 0.61-1.12 [facility] Comment on above: Performed By: #### T SH3, T4F, CBC, CMP, B12, LIPID, [id number] #### [facility] [address] [place] [address] Triglyceride [Mass/volume] i n Serum or PlasmaOrdered By: Christie Aldana on 03-28-2024 Triglyceride [Mass/Vol] 63 mg/dL 0-149 [facility] Comment on above: TRIG ATP III CLASSIF ICATIONTRIG less than 150 mg/dL NormalTRIG 150-199 mg/dL Borderline highTRIG 200-500 mg/dL High TRIG greater than 500 mg/dL Very highStandard traceable to the Center for Disease Conrtrol and Prevention (CDC) test method. Urea nitrogen [Mass/volume] in Serum or PlasmaOrdered By: Christie Aldana on 03-28-2024 Urea nitrogen [Mass/Vol] 15 mg/dL Normal 7-25 [facility] Comment on above: Performed By: #### T SH3, T4F, CBC, CMP, B12, LIPID, [id number] #### [facility] [address] Vitamin B12 ser/plasOrdered By: Christie Aldana on 03-28-2024 Cobalamin (Vitamin B12) [Mass/Vol] 320 pg/mL Normal 180-914 [facility] Comment on above: Performed By: #### T SH3, T4F, CBC, CMP, B12, LIPID, [id number] #### [facility] [address] [place] [id number] [facility] Vitamin D 25 Hydroxy Totalon 03-28-2024 Vitamin D 25 Hydroxy Total 28.7 ng/mL Low 30-100 [facility] Comment on above: Result Comment: HARITHA MIN D STATUS 25(OH)VITAMIN D RANGE (ng/mL) Deficient <20 Insufficient 20 to <30 Sufficient 30 to 100 Reference: Jalyn MF,Nish NC, Veda CANNON, et al. Evaluation,treatment, and prevention of vitamin D deficiency; an Endocrine Society clinical practice guideline. JCEM. 2010; 96(7):1911-30. PERFORMED BY: [place] [address] PATHOLOGIST MEDICAL RECORD RETRIEVAL SPECIALIST JUAN GALVEZ M.D. Performed By: #### T SH3, T4F, CBC, CMP, B12, LIPID, [id number] #### [place] [id number] [facility] Vitamin D+Metabolites [Mass/ volume] in Serum or PlasmaOrdered By: Christie Aldana on 03-28-2024 Vitamin D+Metabolites [Mass/Vol] 28.7 ng/mL Low 30-100 [facility] Comment on above: VITAMIN D STATUS 25( OH)VITAMIN D RANGE (ng/mL) Deficient <20 Insufficient 20 to <30Sufficient 30 to 100Reference: Jalyn MF,Nish BYERS, Veda CANNON, et al. Evaluation,treatment, and prevention of vitamin D deficiency; an Endocrine Society clinical practice guideline. JCEM. 2010; 96(7):1911-30. PAP [id number] 10-30-2023 C. trachomatis rRNA CHARLINE+probe Ql (Cvx) Negative Invalid Interpretation Code Negative [facility] Comment on above: Performed By: #### 3 [id number] #### [facility] [address] [place] [address] Cytology report Cyto stain Doc (Cvx/Vag) Note Invalid Interpretation Code [facility] Comment on above: Result Comment: TEST S RESULT FLAG UNITS REF RANGE LAB Clinician Provided Cytology Information Source.............[employer] Other..............Other No. of containers..01 ThinPrep Vial DIAGNOSIS: 01 NEGATIVE FOR INTRAEPITHELIAL LESION OR MALIGNANCY. Specimen adequacy: 01 Satisfactory for evaluation. Endocervical and/or squamous metaplastic cells (endocervical component) are present. Performed by: 01 Radha Benítez, Supervisory [employer] (ASCP) . 01 Note: Note 01 The [...] High,A-Abnormal,AA-Critical Abnormal Performed at: 01 [facility] [address] [place] [address] Sara Estes MD, Performed By: #### 3 [id number] #### [facility] [address] [place] [address] N. gonorrhoeae rRNA CHARLINE+probe Ql (Cvx) Negative Invalid Interpretation Code Negative [facility] Comment on above: Result Comment: Perf ormed at: [facility] [address] [place], [place] [id number] MD Meera Ruiz Performed at: =G [facility] [address] [id number] MD Meera Ruiz Performed By: #### 3 [id number] #### [facility] [address] [place] [address] PAP [id number] 10-25-2023 Collection Technique BRUSH-SPATULA Normal [facility] Comment on above: Performed By: #### 3 [id number] #### [facility] [address] [place] [address] Gynecological Body Site ENDOCERVIX Normal [facility] Comment on above: Performed By: #### 3 [id number] #### [facility] [address] [place] [address] Other Patient Information EUL-AFFCO-USE Normal [facility] Comment on above: Performed By: #### 3 [id number] #### [facility] [address] [place] [address] Previous Cytology Negative Normal [facility] Comment on above: Performed By: #### 3 [id number] #### [facility] [address] [place] [address] Previous Treatment NONE Normal [facility] Comment on above: Performed By: #### 3 [id number] #### [facility] [address] [place] [address] Physician Orderon 10-25-2023 Physician Order [id number]# 1.00TIFF Normal [facility] CNPNon 09-14-2023 CNPN Telephone (NE50MN) KWASI HEBERT ([id number]) 4 F Date Time Provider Department 09/14/23 ROBERT MARIN NE50MN During your visit today, we recorded the following information about you: Karen Melgar 09/14/2023 2:43 PM Signed General call : Full name of person calling: Kwasi Hebert Relationship to patient: Self Phone # : [phone] Reason for call: Dizzy, unable to get up in the morning. Birviact is not working. Possibly having focal seizures Patient of Amena Richardson 09/15/2023 9:00 AM Signed Please call back to discuss her medication. Patient believes she may have had focal seizures yesterday lasting about 1.5 minutes. She went to the emergency room care. She has a UTI. Patient can be reached at [phone]. Albin Major, RN 09/15/2023 1:40 PM Signed Spoke with [...] Status:Closed by ALBIN MAJOR on 09/15/23 Normal [facility] MRI BRAIN WO IVCONon 023 [facility] MRI BRAIN LOCALIZATION WO IV CONon 01-24-2023 [facility] CTA HEAD W IVCONon [facility] MRI BRAIN LOCALIZATION W IVC ONon 11-22-2022 [facility] MRI BRAIN WO IVCONon 023 [facility] Albumin [Mass/volume] in Ser um or PlasmaOrdered By: Shashi Ornelas on 10-02-2022 Albumin [Mass/Vol] 4.5 g/dL 3.2-5.5 [facility] Automated erythrocytes count in urine sediment (number/area)Ordered By: Shashi Ornelas on 10-02-2022 RBC Auto (Urine sed) [#/Area] Innumerable [HPF] 0-4 [facility] Automated leukocytes count i n urine sediment (number/area)Ordered By: Shashi Ornelas on 10-02-2022 WBC Auto (Urine sed) [#/Area] 5-9 [HPF] 0-4 [facility] Basophils Auto (Bld) [#/Vol] Ordered By: Shashi Ornelas on 10-02-2022 Basophils (Bld) [#/Vol] 0.1 10*3/uL 0.0-0.2 [facility] Basophils/100 WBC Auto (Bld) Ordered By: Shashi Ornelas on 10-02-2022 Basophils/100 WBC (Bld) 0.5 % . [facility] Bilirubin Test strip Ql (U)O rdered By: Shashi Ornelas on 10-02-2022 Bilirubin Ql (U) Negative Negative [facility] COVID CepheidOrdered By: Milton Ornelas on 10-02-2022 SARS-CoV-2 (COVID-19) Ab IA Ql Negative Negative [facility] Comment on above: This is a duplicate CepXtiumid Xpert Xpress CoV-2/Flu/RSV Plus RNA by RT-PCR result to be used for statistical tracking purpose only. SARS-CoV-2 (COVID-19) RNA CHARLINE+probe Ql (Unsp spec) [facility] Color Auto (U)Ordered By: Bree Ornelas on 10-02-2022 Color (U) Yellow Yellow [facility] Creatinine and Glomerular fi ltration rate.predicted panel (S/P/Bld)Ordered By: Shashi Ornelas on 10-02-2022 Creatinine [Mass/Vol] 0.84 mg/dL 0.44-1.03 [facility] Eosinophils Auto (Bld) [#/Vo l]Ordered By: Shashi Ornelas on 10-02-2022 Eosinophils (Bld) [#/Vol] 0.1 10*3/uL 0.0-0.45 [facility] Eosinophils/100 WBC Auto (Bl d)Ordered By: Shashi Ornelas on 10-02-2022 Eosinophils/100 WBC (Bld) 0.7 % . [facility] Erythrocyte distribution wid th Auto (RBC) [Ratio]Ordered By: Shashi Ornelas on 10-02-2022 Erythrocyte distribution width (RBC) [Ratio] 13.7 % 11.9-15.3 [facility] Estimated glomerular filtrat ion rate (GFR) non- AmericanOrdered By: Shashi Ornelas on 10-02-2022 GFR/1.73 sq M.predicted among non-blacks MDRD (S/P/Bld) [Vol rate/Area] > 60 mL/Min [facility] Globulin Calc (S) [Mass/Vol] Ordered By: Shashi Ornelas on 10-02-2022 Globulin (S) [Mass/Vol] 2.8 g/dL [facility] HCG ( test) IA.rapi d Ql (U)Ordered By: Shashi Ornelas on 10-02-2022 HCG ( test) Ql (U) Negative [facility] Hematocrit Auto (Bld) [Volum e fraction]Ordered By: Shashi Ornelas on 10-02-2022 Hematocrit (Bld) [Volume fraction] 43.3 % 34.0-46.4 [facility] Hemoglobin [Mass/volume] in BloodOrdered By: Shashi Ornelas on 10-02-2022 Hemoglobin (Bld) [Mass/Vol] 14.4 g/dL 11.8-15.4 [facility] Ketones Auto test strip (U) [Mass/Vol]Ordered By: Shashi Ornelas on 02-19-2023 Ketones (U) [Mass/Vol] Trace Negative Fi [facility] Laboratory - Chemistry and C hemistry - challengeOrdered By: Shashi Ornelas on 10-02-2022 Lipase [Catalytic activity/Vol] 29.0 U/L 22-51 [facility] Magnesium [Mass/Vol] 1.9 mg/dL 1.6-2.6 [facility] Laboratory - UrinalysisOrder ed By: Shashi Ornelas on 10-02-2022 Hyaline casts LM Ql (Urine sed) 0-8 [LPF] 0-8 [facility] Leukocytes [#/volume] correc deni for nucleated erythrocytes in Blood by Automated counOrdered By: Shashi Ornelas on 10-02-2022 WBC corrected for nucl RBC Auto (Bld) [#/Vol] 10.8 10*3/uL 3.8-11.6 [facility] Lymphocytes Auto (Bld) [#/Vo l]Ordered By: Shashi Ornelas on 10-02-2022 Lymphocytes (Bld) [#/Vol] 1.3 10*3/uL 1.00-4.8 [facility] Lymphocytes/100 WBC Auto (Bl d)Ordered By: Shashi Ornelas on 10-02-2022 Lymphocytes/100 WBC (Bld) 12.1 % . [facility] MCH Auto (RBC) [Entitic mass ]Ordered By: Shashi Ornelas on 10-02-2022 MCH (RBC) [Entitic mass] 29.8 pg 24.7-34.3 [facility] MCHC Auto (RBC) [Mass/Vol]Or dered By: Shahsi Ornelas on 10-02-2022 MCHC (RBC) [Mass/Vol] 33.4 g/dL 32.0-35.0 [facility] MCV Auto (RBC) [Entitic vol] Ordered By: Shashi Ornelas on 10-02-2022 MCV (RBC) [Entitic vol] 89.3 fL 80-100 [facility] Monocyte distribution width [Entitic volume] in Blood by AutomatedOrdered By: Shashi Ornelas on 10-02-2022 Monocyte distribution width Auto (Bld) [Entitic vol] 18.87 % 0.00-20.00 [facility] Monocytes Auto (Bld) [#/Vol] Ordered By: Shashi Ornelas on 10-02-2022 Monocytes (Bld) [#/Vol] 0.6 10*3/uL 0.0-0.8 [facility] Monocytes/100 WBC Auto (Bld) Ordered By: Shashi Ornelas on 10-02-2022 Monocytes/100 WBC (Bld) 5.2 % . [facility] Neutrophils Auto (Bld) [#/Vo l]Ordered By: Shashi Ornelas on 10-02-2022 Neutrophils (Bld) [#/Vol] 8.8 10*3/uL 1.8-7.7 [facility] Neutrophils/100 WBC Auto (Bl d)Ordered By: Shashi Ornelas on 10-02-2022 Neutrophils/100 WBC (Bld) 81.5 % . [facility] Nitrite Test strip Ql (U)Ord ered By: Shashi Ornelas on 10-02-2022 Nitrite Ql (U) Negative Negative [facility] No Panel InformationOrdered By: Shashi Ornelas on 10-02-2022 Estimated GFR () > 60 mL/Min [facility] Comment on above: GFR estimated refere nce range: According to KDOQI guidelines, <60 ml/min/1.73m2 is sufficient to diagnose a patient with chronic kidney disease. Pharmacy Creatinine Clearance (Chem 81.29 [facility] Nucleated erythrocytes [Pres ence] in Blood by Automated countOrdered By: Shashi Ornelas on 10-02-2022 Nucleated RBC Auto Ql (Bld) 0.0 /100{WBC} 0-0.5 [facility] Phosphate [Mass/volume] in S nury or PlasmaOrdered By: Shashi Ornelas on 10-02-2022 Phosphate [Mass/Vol] 2.9 mg/dL 2.5-4.6 [facility] Platelet mean volume Auto (B ld) [Entitic vol]Ordered By: Shashi Ornelas on 10-02-2022 Platelet mean volume (Bld) [Entitic vol] 9.2 fL 6.3-10.7 [facility] Platelets Auto (Bld) [#/Vol] Ordered By: Shashi Ornelas on 10-02-2022 Platelets (Bld) [#/Vol] 211 10*3/uL 150-450 [facility] Prolactin [Mass/volume] in S nury or PlasmaOrdered By: Shashi Ornelas on 10-02-2022 Prolactin [Mass/Vol] 48.05 ng/mL 3.34-26.72 [facility] Protein Auto test strip (U) [Mass/Vol]Ordered By: Shashi Ornelas on 10-02-2022 Protein (U) [Mass/Vol] 30 mg/dL Negative [facility] Protein [Mass/volume] in Ser um or PlasmaOrdered By: Shashi Ornelas on 10-02-2022 Protein [Mass/Vol] 7.3 g/dL 6.1-7.9 [facility] RBC Auto (Bld) [#/Vol]Ordere d By: Shashi Ornelas on 10-02-2022 RBC (Bld) [#/Vol] 4.84 10*6/uL 3.60-5.[address] [facility] Serum or plasma alanine greene otransferase measurement without P-5'-P (enzymatic activiOrdered By: Shashi Ornelas on 10-02-2022 ALT No additional P-5'-P [Catalytic activity/Vol] 16 U/L 10-60 [facility] Serum or plasma albumin/glob ulin mass ratioOrdered By: Shashi Ornelas on 10-02-2022 Albumin/Globulin [Mass ratio] 1.6 {ratio} [facility] Serum or plasma alkaline donna sphatase measurement (enzymatic activity/volume)Ordered By: Shashi Ornelas on 10-02-2022 ALP [Catalytic activity/Vol] 78 U/L 32-92 [facility] Serum or plasma anion gap de terminationOrdered By: Shashi Ornelas on 10-02-2022 Anion gap [Moles/Vol] 11.0 mmol/L 6.0-15.0 [facility] Serum or plasma aspartate am inotransferase measurement (enzymatic activity/volume)Ordered By: Shashi Ornelas on 10-02-2022 AST [Catalytic activity/Vol] 20 U/L 10-42 [facility] Serum or plasma calcium france urement (mass/volume)Ordered By: Shashi Ornelas on 10-02-2022 Calcium [Mass/Vol] 9.2 mg/dL 8.2-10.2 [facility] Serum or plasma chloride joanne surement (moles/volume)Ordered By: Shashi Ornelas on 10-02-2022 Chloride [Moles/Vol] 102 mmol/L 95-114 [facility] Serum or plasma glucose france urement (mass/volume)Ordered By: Shashi Ornelas on 10-02-2022 Glucose [Mass/Vol] 146 mg/dL 70-100 [facility] Comment on above: ADA recommended refe rence rangeRandom Glucose Reference Range is dependent on time and content of last meal. Glucose of more than 200 mg/dL in a nonstressed, ambulatory subject supports the diagnosis of Diabetes Mellitus. Serum or plasma potassium me asurement (moles/volume)Ordered By: Shashi Ornelas on 10-02-2022 Potassium [Moles/Vol] 3.7 mmol/L 3.5-5.1 [facility] Serum or plasma sodium measu rement (moles/volume)Ordered By: Shashi Ornelas on 10-02-2022 Sodium [Moles/Vol] 135 mmol/L 136-146 [facility] Serum or plasma total biliru bin measurement (mass/volume)Ordered By: Shashi Ornelas on 10-02-2022 Bilirubin [Mass/Vol] 0.3 mg/dL 0.3-1.2 [facility] Serum or plasma total carbon dioxide measurement (moles/volume)Ordered By: Shashi Ornelas on 10-02-2022 CO2 [Moles/Vol] 25.7 mmol/L 22.0-30.0 [facility] Serum or plasma urea nitroge n measurement (mass/volume)Ordered By: Shashi Ornelas on 10-02-2022 Urea nitrogen [Mass/Vol] 14 mg/dL - [facility] Specific gravity Auto test s trip (U) [Rel density]Ordered By: Shashi Ornelas on 10-02-2022 Specific gravity (U) [Rel density] 1.028 1.001-1.030 [facility] Squamous epithelial cells de tection in urine sediment by light microscopyOrdered By: Shashi Ornelas on 10-02-2022 Epithelial cells.squamous LM Ql (Urine sed) 3-4 [HPF] 0-2 [facility] Urine bacteria detection by automated methodOrdered By: Shashi Ornelas on 10-02-2022 Bacteria Auto Ql (U) None seen None Seen [facility] Urine clarity by refractomet ry automatedOrdered By: Shashi Ornelas on 10-02-2022 Clarity Refractometry automated (U) Clear Clear [facility] Urine glucose measurement by automated test strip (mass/volume)Ordered By: Shashi Ornelas on 10-02-2022 Glucose Auto test strip (U) [Mass/Vol] Normal mg/dL Normal [facility] Urine hemoglobin detection b y automated test stripOrdered By: Shashi Ornelas on 10-02-2022 Hemoglobin Auto test strip Ql (U) 3+ Negative [facility] Urine leukocyte esterase det ection by automated test stripOrdered By: Shashi Ornelas on 10-02-2022 Leukocyte esterase Auto test strip Ql (U) 2+ Negative [facility] Urobilinogen Auto test strip (U) [Mass/Vol]Ordered By: Shashi Ornelas on 10-02-2022 Urobilinogen (U) [Mass/Vol] Normal mg/dL Normal [facility] WBC Auto (Bld) [#/Vol]Ordere d By: Shashi Ornelas on 10-02-2022 WBC (Bld) [#/Vol] 10.8 10*3/uL 3.8-11.[address] [facility] pH Auto test strip (U)Ordere d By: Shashi Ornelas on 10-02-2022 pH (U) 7.0 [pH] 5.0-9.0 [facility] EPIL ANA SPONTANEOUS BRAIN A CTIVTYon 09-16-2022 [facility] No Panel Informationon 09-08 [facility] Albumin [Mass/volume] in Ser um or PlasmaOrdered By: Madiha Funk on 08-25-2022 Albumin [Mass/Vol] 4.4 g/dL 3.2-5.5 [facility] Automated erythrocytes count in urine sediment (number/area)Ordered By: Madiha Funk on 08-25-2022 RBC Auto (Urine sed) [#/Area] 10-19 [HPF] 0-4 [facility] Automated leukocytes count i n urine sediment (number/area)Ordered By: Madiha Funk on 08-25-2022 WBC Auto (Urine sed) [#/Area] 20-49 [HPF] 0-4 [facility] Basophils Auto (Bld) [#/Vol] Ordered By: PROVIDER TEMP on 08-25-2022 Basophils (Bld) [#/Vol] 0.0 10*3/uL 0.0-0.2 [facility] Basophils/100 WBC Auto (Bld) Ordered By: PROVIDER TEMP on 08-25-2022 Basophils/100 WBC (Bld) 0.7 % . [facility] Bilirubin Test strip Ql (U)O rdered By: Madiha Funk on 08-25-2022 Bilirubin Ql (U) Negative Negative [facility] COVID-19 SOFIAOrdered By: Cody Funk on 08-25-2022 SARS-CoV+SARS-CoV-2 (COVID-19) Ag IA.rapid Ql (Resp) Negative Negative [facility] Comment on above: This is a duplicate Eduarda SARS Antigen (JUVENCIO) result to be used for statistical tracking purpose only. Color Auto (U)Ordered By: Cody Funk on 08-25-2022 Color (U) Yellow Yellow [facility] Creatinine and Glomerular fi ltration rate.predicted panel (S/P/Bld)Ordered By: Madiha Funk on 08-25-2022 Creatinine [Mass/Vol] 0.97 mg/dL 0.44-1.03 [facility] Eosinophils Auto (Bld) [#/Vo l]Ordered By: PROVIDER TEMP on 08-25-2022 Eosinophils (Bld) [#/Vol] 0.1 10*3/uL 0.0-0.45 [facility] Eosinophils/100 WBC Auto (Bl d)Ordered By: PROVIDER TEMP on 01-12-2023 Eosinophils/100 WBC (Bld) 1.9 % . [facility] Erythrocyte distribution wid th Auto (RBC) [Ratio]Ordered By: PROVIDER TEMP on 08-25-2022 Erythrocyte distribution width (RBC) [Ratio] 14.1 % 11.9-15.3 [facility] Estimated glomerular filtrat ion rate (GFR) non- AmericanOrdered By: Madiha Funk on 08-25-2022 GFR/1.73 sq M.predicted among non-blacks MDRD (S/P/Bld) [Vol rate/Area] > 60 mL/Min [facility] Globulin Calc (S) [Mass/Vol] Ordered By: Madiha Funk on 08-25-2022 Globulin (S) [Mass/Vol] 2.5 g/dL [facility] Glucose Glucometer (BldC) [M ass/Vol]Ordered By: PROVIDER TEMP on 08-25-2022 Glucose [Mass/Vol] 83 mg/dL [facility] Comment on above: Random Glucose Refer ence Range is dependent on time and content of last meal. Glucose of more than 200 mg/dL in a nonstressed, ambulatory subject supports the diagnosis of Diabetes Mellitus. HCG ( test) IA.rapi d Ql (U)Ordered By: Madiha Funk on 08-25-2022 HCG ( test) Ql (U) Negative [facility] Hematocrit Auto (Bld) [Volum e fraction]Ordered By: PROVIDER TEMP on 08-25-2022 Hematocrit (Bld) [Volume fraction] 42.3 % 34.0-46.4 [facility] Hemoglobin [Mass/volume] in BloodOrdered By: PROVIDER TEMP on 08-25-2022 Hemoglobin (Bld) [Mass/Vol] 13.7 g/dL 11.8-15.4 [facility] Ketones Auto test strip (U) [Mass/Vol]Ordered By: Madiha Funk on 08-25-2022 Ketones (U) [Mass/Vol] Trace Negative [facility] Laboratory - Chemistry and C hemistry - challengeOrdered By: Madiha Funk on 08-25-2022 Magnesium [Mass/Vol] 1.9 mg/dL 1.6-2.6 [facility] Laboratory - UrinalysisOrder ed By: Madiha Funk on 08-25-2022 Hyaline casts LM Ql (Urine sed) 0-8 [LPF] 0-8 [facility] Leukocytes [#/volume] correc deni for nucleated erythrocytes in Blood by Automated counOrdered By: PROVIDER TEMP on 08-25-2022 WBC corrected for nucl RBC Auto (Bld) [#/Vol] 6.5 10*3/uL 3.8-11.6 [facility] Lymphocytes Auto (Bld) [#/Vo l]Ordered By: PROVIDER TEMP on 08-25-2022 Lymphocytes (Bld) [#/Vol] 1.9 10*3/uL 1.00-4.8 [facility] Lymphocytes/100 WBC Auto (Bl d)Ordered By: PROVIDER TEMP on 08-25-2022 Lymphocytes/100 WBC (Bld) 28.7 % . [facility] MCH Auto (RBC) [Entitic mass ]Ordered By: PROVIDER TEMP on 08-25-2022 MCH (RBC) [Entitic mass] 29.4 pg 24.7-34.3 [facility] MCHC Auto (RBC) [Mass/Vol]Or dered By: PROVIDER TEMP on 08-25-2022 MCHC (RBC) [Mass/Vol] 32.4 g/dL 32.0-35.0 [facility] [place] MCV Auto (RBC) [Entitic vol] Ordered By: PROVIDER TEMP on 08-25-2022 MCV (RBC) [Entitic vol] 90.6 fL 80-100 [facility] Monocyte distribution width [Entitic volume] in Blood by AutomatedOrdered By: PROVIDER TEMP on 08-25-2022 Monocyte distribution width Auto (Bld) [Entitic vol] 15.89 % 0.00-20.00 [facility] Monocytes Auto (Bld) [#/Vol] Ordered By: PROVIDER TEMP on 08-25-2022 Monocytes (Bld) [#/Vol] 0.5 10*3/uL 0.0-0.8 [facility] Monocytes/100 WBC Auto (Bld) Ordered By: PROVIDER TEMP on 08-25-2022 Monocytes/100 WBC (Bld) 7.3 % . [facility] Neutrophils Auto (Bld) [#/Vo l]Ordered By: PROVIDER TEMP on 08-25-2022 Neutrophils (Bld) [#/Vol] 4.0 10*3/uL 1.8-7.7 [facility] Neutrophils/100 WBC Auto (Bl d)Ordered By: PROVIDER TEMP on 08-25-2022 Neutrophils/100 WBC (Bld) 61.4 % . [facility] Nitrite Test strip Ql (U)Ord ered By: Madiha Funk on 08-25-2022 Nitrite Ql (U) Negative Negative [facility] No Panel InformationOrdered By: Madiha Funk on 08-25-2022 SARS Antigen (LFIA) [facility] Estimated GFR () > 60 mL/Min [facility] Comment on above: GFR estimated refere nce range: According to KDOQI guidelines, <60 ml/min/1.73m2 is sufficient to diagnose a patient with chronic kidney disease. Lamotrigine (Lamictal) Level 6.1 ug/mL 2.0-20.0 [facility] Comment on above: Detection Limit = 1. 0Performed at: [facility] [id number] Director: Brent Alves MD, Phone: [phone] Pharmacy Creatinine Clearance (Chem 74.37 [facility] Nucleated erythrocytes [Pres ence] in Blood by Automated countOrdered By: PROVIDER TEMP on 08-25-2022 Nucleated RBC Auto Ql (Bld) 0.1 /100{WBC} 0-0.5 [facility] Platelet mean volume Auto (B ld) [Entitic vol]Ordered By: PROVIDER TEMP on 08-25-2022 Platelet mean volume (Bld) [Entitic vol] 9.0 fL 6.3-10.7 [facility] Platelets Auto (Bld) [#/Vol] Ordered By: PROVIDER TEMP on 08-25-2022 Platelets (Bld) [#/Vol] 202 10*3/uL 150-450 [facility] Prolactin [Mass/volume] in S nury or PlasmaOrdered By: Madiha Funk on 08-25-2022 Prolactin [Mass/Vol] 14.22 ng/mL 3.34-26.72 [facility] Protein Auto test strip (U) [Mass/Vol]Ordered By: Madiha Funk on 08-25-2022 Protein (U) [Mass/Vol] Negative Negative [facility] Protein [Mass/volume] in Ser um or PlasmaOrdered By: Madiha Funk on 08-25-2022 Protein [Mass/Vol] 6.9 g/dL 6.1-7.9 [facility] RBC Auto (Bld) [#/Vol]Ordere d By: PROVIDER TEMP on 08-25-2022 RBC (Bld) [#/Vol] 4.67 10*6/uL 3.60-5.[address] [facility] Serum or plasma alanine greene otransferase measurement without P-5'-P (enzymatic activiOrdered By: Madiha Funk on 08-25-2022 ALT No additional P-5'-P [Catalytic activity/Vol] 17 U/L 10-60 [facility] Serum or plasma albumin/glob ulin mass ratioOrdered By: Madiha Funk on 08-25-2022 Albumin/Globulin [Mass ratio] 1.8 {ratio} [facility] Serum or plasma alkaline donna sphatase measurement (enzymatic activity/volume)Ordered By: Madiha Funk on 08-25-2022 ALP [Catalytic activity/Vol] 61 U/L 32-92 [facility] Serum or plasma anion gap de terminationOrdered By: Madiha Funk on 08-25-2022 Anion gap [Moles/Vol] 12.1 mmol/L 6.0-15.0 [facility] Serum or plasma aspartate am inotransferase measurement (enzymatic activity/volume)Ordered By: Madiha Funk on 08-25-2022 AST [Catalytic activity/Vol] 19 U/L 10-42 [facility] Serum or plasma calcium france urement (mass/volume)Ordered By: Madiha Funk on 08-25-2022 Calcium [Mass/Vol] 9.6 mg/dL 8.2-10.2 [facility] Serum or plasma chloride joanne surement (moles/volume)Ordered By: Madiha Funk on 08-25-2022 Chloride [Moles/Vol] 101 mmol/L 95-114 [facility] Serum or plasma glucose france urement (mass/volume)Ordered By: Madiha Funk on 08-25-2022 Glucose [Mass/Vol] 88 mg/dL 70-100 [facility] Comment on above: ADA recommended refe rence rangeRandom Glucose Reference Range is dependent on time and content of last meal. Glucose of more than 200 mg/dL in a nonstressed, ambulatory subject supports the diagnosis of Diabetes Mellitus. Serum or plasma potassium me asurement (moles/volume)Ordered By: Madiha Funk on 08-25-2022 Potassium [Moles/Vol] 4.1 mmol/L 3.5-5.1 [facility] Serum or plasma sodium measu rement (moles/volume)Ordered By: Madiha Funk on 08-25-2022 Sodium [Moles/Vol] 133 mmol/L 136-146 [facility] Serum or plasma total biliru bin measurement (mass/volume)Ordered By: Madiha Funk on 08-25-2022 Bilirubin [Mass/Vol] 0.7 mg/dL 0.3-1.2 [facility] Serum or plasma total carbon dioxide measurement (moles/volume)Ordered By: Madiha Funk on 08-25-2022 CO2 [Moles/Vol] 24.0 mmol/L 22.0-30.0 [facility] Serum or plasma urea nitroge n measurement (mass/volume)Ordered By: Madiha Funk on 08-25-2022 Urea nitrogen [Mass/Vol] 13 mg/dL 9-23 [facility] Specific gravity Auto test s trip (U) [Rel density]Ordered By: Madiha Funk on 08-25-2022 Specific gravity (U) [Rel density] 1.029 1.001-1.030 [facility] Squamous epithelial cells de tection in urine sediment by light microscopyOrdered By: Madiha Funk on 08-25-2022 Epithelial cells.squamous LM Ql (Urine sed) 1-2 [HPF] 0-2 [facility] Urine bacteria detection by automated methodOrdered By: Madiha Funk on 08-25-2022 Bacteria Auto Ql (U) None seen None Seen [facility] Urine clarity by refractomet ry automatedOrdered By: Madiha Funk on 08-25-2022 Clarity Refractometry automated (U) Clear Clear [facility] Urine culture routineOrdered By: Madiha Funk on 08-25-2022 Bacteria identified Cx Nom (U) Enterococcus faecalis [facility] Urine glucose measurement by automated test strip (mass/volume)Ordered By: Madiha Funk on 08-25-2022 Glucose Auto test strip (U) [Mass/Vol] Normal mg/dL Normal [facility] Urine hemoglobin detection b y automated test stripOrdered By: Madiha Funk on 08-25-2022 Hemoglobin Auto test strip Ql (U) Negative Negative [facility] Urine lactic acid measuremen tOrdered By: Leif Funk on 08-25-2022 Lactate (U) [Moles/Vol] 0.8 mmol/L 0.5-2.2 [facility] Urine leukocyte esterase det ection by automated test stripOrdered By: Madiha Funk on 08-25-2022 Leukocyte esterase Auto test strip Ql (U) 2+ Negative [facility] Urobilinogen Auto test strip (U) [Mass/Vol]Ordered By: Madiha Funk on 08-25-2022 Urobilinogen (U) [Mass/Vol] Normal mg/dL Normal [facility] WBC Auto (Bld) [#/Vol]Ordere d By: JEAN MARIE GARCIA on 08-25-2022 WBC (Bld) [#/Vol] 6.5 10*3/uL 3.8-11.6 [facility] pH Auto test strip (U)Ordere d By: Madiha Funk on 08-25-2022 pH (U) 5.5 [pH] 5.0-9.0 [facility] Automated erythrocytes count in urine sediment (number/area)Ordered By: Sedrick Pina on 07-14-2022 RBC Auto (Urine sed) [#/Area] None seen [HPF] 0-4 [facility] Automated leukocytes count i n urine sediment (number/area)Ordered By: Sedrick Pina on 07-14-2022 WBC Auto (Urine sed) [#/Area] 5-9 [HPF] 0-4 [facility] Basophils Auto (Bld) [#/Vol] Ordered By: Sedrick Pina on 07-14-2022 Basophils (Bld) [#/Vol] 0.1 10*3/uL 0.0-0.2 [facility] Basophils/100 WBC Auto (Bld) Ordered By: Sedrick Pina on 07-14-2022 Basophils/100 WBC (Bld) 0.8 % . [facility] Bilirubin Test strip Ql (U)O rdered By: Sedrick Pina on 07-14-2022 Bilirubin Ql (U) Negative Negative [facility] Body fluid albumin measureme nt (mass/volume)Ordered By: Sedrick Pina on 07-14-2022 Albumin (Body fld) [Mass/Vol] 4.1 g/dL 3.2-5.5 [facility] Color Auto (U)Ordered By: Sahil Pina on 07-14-2022 Color (U) Yellow Yellow [facility] Creatinine and Glomerular fi ltration rate.predicted panel (S/P/Bld)Ordered By: Sedrick Pina on 07-14-2022 Creatinine [Mass/Vol] 0.89 mg/dL 0.44-1.03 [facility] Eosinophils Auto (Bld) [#/Vo l]Ordered By: Sedrick Pina on 07-14-2022 Eosinophils (Bld) [#/Vol] 0.1 10*3/uL 0.0-0.45 [facility] Eosinophils/100 WBC Auto (Bl d)Ordered By: Sedrick Pina on 07-14-2022 Eosinophils/100 WBC (Bld) 1.7 % . [facility] Erythrocyte distribution wid th Auto (RBC) [Ratio]Ordered By: Sedrick Pina on 07-14-2022 Erythrocyte distribution width (RBC) [Ratio] 13.8 % 11.9-15.3 [facility] Estimated glomerular filtrat ion rate (GFR) non- AmericanOrdered By: Sedrick Pina on 07-14-2022 GFR/1.73 sq M.predicted among non-blacks MDRD (S/P/Bld) [Vol rate/Area] > 60 mL/Min [facility] Globulin Calc (S) [Mass/Vol] Ordered By: Sedrick Pina on 07-14-2022 Globulin (S) [Mass/Vol] 2.7 g/dL [facility] HCG ( test) IA.rapi d Ql (U)Ordered By: JEAN MARIE GARCIA on 07-14-2022 HCG ( test) Ql (U) Negative [facility] Hematocrit Auto (Bld) [Volum e fraction]Ordered By: Sedrick Pina on 07-14-2022 Hematocrit (Bld) [Volume fraction] 41.1 % 34.0-46.4 [facility] Hemoglobin [Mass/volume] in BloodOrdered By: Sedrick Pina on 07-14-2022 Hemoglobin (Bld) [Mass/Vol] 13.5 g/dL 11.8-15.4 [facility] Ketones Auto test strip (U) [Mass/Vol]Ordered By: Sedrick Pina on 07-14-2022 Ketones (U) [Mass/Vol] Trace Negative Fi [facility] Laboratory - Chemistry and C hemistry - challengeOrdered By: Sedrick Pina on 07-14-2022 Lipase [Catalytic activity/Vol] 32.0 U/L 22-51 [facility] Laboratory - UrinalysisOrder ed By: Sedrick Pina on 07-14-2022 Hyaline casts LM Ql (Urine sed) 0-8 [LPF] 0-8 [facility] Leukocytes [#/volume] correc deni for nucleated erythrocytes in Blood by Automated counOrdered By: Sedrick Pina on 07-14-2022 WBC corrected for nucl RBC Auto (Bld) [#/Vol] 7.7 10*3/uL 3.8-11.6 [facility] Lymphocytes Auto (Bld) [#/Vo l]Ordered By: Sedrick Pina on 07-14-2022 Lymphocytes (Bld) [#/Vol] 2.3 10*3/uL 1.00-4.8 [facility] Lymphocytes/100 WBC Auto (Bl d)Ordered By: Sedrick Pina on 07-14-2022 Lymphocytes/100 WBC (Bld) 30.0 % . [facility] MCH Auto (RBC) [Entitic mass ]Ordered By: Sedrick Pina on 07-14-2022 MCH (RBC) [Entitic mass] 29.2 pg 24.7-34.3 [facility] MCHC Auto (RBC) [Mass/Vol]Or dered By: Sedrick Pina on 07-14-2022 MCHC (RBC) [Mass/Vol] 32.9 g/dL 32.0-35.0 [facility] MCV Auto (RBC) [Entitic vol] Ordered By: Sedrick Pina on 07-14-2022 MCV (RBC) [Entitic vol] 88.8 fL 80-100 [facility] Monocytes Auto (Bld) [#/Vol] Ordered By: Sedrick Pina on 07-14-2022 Monocytes (Bld) [#/Vol] 0.6 10*3/uL 0.0-0.8 [facility] Monocytes/100 WBC Auto (Bld) Ordered By: Sedrick Pina on 07-14-2022 Monocytes/100 WBC (Bld) 7.5 % . [facility] Mucus LM Ql (Urine sed)Order ed By: Sedrick Pina on 07-14-2022 Mucus Ql (Urine sed) 4+ [LPF] [facility] Neutrophils Auto (Bld) [#/Vo l]Ordered By: Sedrick Pina on 07-14-2022 Neutrophils (Bld) [#/Vol] 4.6 10*3/uL 1.8-7.7 [facility] Neutrophils/100 WBC Auto (Bl d)Ordered By: Sedrick Pina on 07-14-2022 Neutrophils/100 WBC (Bld) 60.0 % . [facility] Nitrite Test strip Ql (U)Ord ered By: Sedrick Pina on 07-14-2022 Nitrite Ql (U) Negative [facility] No Panel InformationOrdered By: Sedrick Pian on 07-14-2022 Estimated GFR () > 60 mL/Min [facility] Comment on above: GFR estimated refere nce range: According to KDOQI guidelines, <60 ml/min/1.73m2 is sufficient to diagnose a patient with chronic kidney disease. Pharmacy Creatinine Clearance (Chem 8.03 [facility] Nucleated erythrocytes [Pres ence] in Blood by Automated countOrdered By: Sedrick Pina on 07-14-2022 Nucleated RBC Auto Ql (Bld) 0.2 /100{WBC} 0-0.5 [facility] Platelet mean volume Auto (B ld) [Entitic vol]Ordered By: Sedrick Pina on 07-14-2022 Platelet mean volume (Bld) [Entitic vol] 8.8 fL 6.3-10.7 [facility] Platelets Auto (Bld) [#/Vol] Ordered By: Sedrick Pina on 07-14-2022 Platelets (Bld) [#/Vol] 218 10*3/uL 150-450 [facility] Protein Auto test strip (U) [Mass/Vol]Ordered By: Sedrick Pina on 07-14-2022 Protein (U) [Mass/Vol] Negative Negative [facility] Protein [Mass/volume] in Ser um or PlasmaOrdered By: Sedrick Pina on 07-14-2022 Protein [Mass/Vol] 6.8 g/dL 6.1-7.9 [facility] RBC Auto (Bld) [#/Vol]Ordere d By: Sedrick Pina on 07-14-2022 RBC (Bld) [#/Vol] 4.63 10*6/uL 3.60-5.[address] [facility] Serum or plasma alanine greene otransferase measurement without P-5'-P (enzymatic activiOrdered By: Sedrick Pina on 07-14-2022 ALT No additional P-5'-P [Catalytic activity/Vol] 22 U/L 10-60 [facility] Serum or plasma albumin/glob ulin mass ratioOrdered By: Sedrick Pina on 07-14-2022 Albumin/Globulin [Mass ratio] 1.5 {ratio} [facility] Serum or plasma alkaline donna sphatase measurement (enzymatic activity/volume)Ordered By: Sedrick Pina on 07-14-2022 ALP [Catalytic activity/Vol] 67 U/L 32-92 [facility] Serum or plasma anion gap de terminationOrdered By: Sedrick Pina on 07-14-2022 Anion gap [Moles/Vol] 12.0 mmol/L 6.0-15.0 [facility] Serum or plasma aspartate am inotransferase measurement (enzymatic activity/volume)Ordered By: Sedrick Pina on 07-14-2022 AST [Catalytic activity/Vol] 21 U/L 10-42 [facility] Serum or plasma calcium france urement (mass/volume)Ordered By: Sedrick Pina on 07-14-2022 Calcium [Mass/Vol] 9.5 mg/dL 8.2-10.2 [facility] Serum or plasma chloride joanne surement (moles/volume)Ordered By: Sedrick Pina on 07-14-2022 Chloride [Moles/Vol] 99 mmol/L 95-114 [facility] Serum or plasma glucose france urement (mass/volume)Ordered By: Sedrick Pina on 07-14-2022 Glucose [Mass/Vol] 96 mg/dL 70-100 [facility] Comment on above: ADA recommended refe rence rangeRandom Glucose Reference Range is dependent on time and content of last meal. Glucose of more than 200 mg/dL in a nonstressed, ambulatory subject supports the diagnosis of Diabetes Mellitus. Serum or plasma potassium me asurement (moles/volume)Ordered By: Sedrick Pina on 07-14-2022 Potassium [Moles/Vol] 3.5 mmol/L 3.5-5.1 [facility] Serum or plasma sodium measu rement (moles/volume)Ordered By: Sedrick Pina on 07-14-2022 Sodium [Moles/Vol] 136 mmol/L 136-146 [facility] Serum or plasma total biliru bin measurement (mass/volume)Ordered By: Sedrick Pina on 07-14-2022 Bilirubin [Mass/Vol] 0.4 mg/dL 0.3-1.2 [facility] Serum or plasma total carbon dioxide measurement (moles/volume)Ordered By: Sedrick Pina on 07-14-2022 CO2 [Moles/Vol] 28.5 mmol/L 22.0-30.0 [facility] Serum or plasma urea nitroge n measurement (mass/volume)Ordered By: Sedrick Pina on 07-14-2022 Urea nitrogen [Mass/Vol] 12 mg/dL 9-23 [facility] Specific gravity Auto test s trip (U) [Rel density]Ordered By: Sedrick Pina on 07-14-2022 Specific gravity (U) [Rel density] 1.027 1.001-1.030 [facility] Squamous epithelial cells de tection in urine sediment by light microscopyOrdered By: Sedrick Pina on 07-14-2022 Epithelial cells.squamous LM Ql (Urine sed) 5-9 [HPF] 0-2 [facility] Urine bacteria detection by automated methodOrdered By: Sedrick Pina on 07-14-2022 Bacteria Auto Ql (U) 1+ None Seen [facility] Urine clarity by refractomet ry automatedOrdered By: Sedrick Pina on 07-14-2022 Clarity Refractometry automated (U) Clear Clear [facility] Urine culture routineOrdered By: Sedrick Pina on 07-14-2022 Bacteria identified Cx Nom (U) 2 Days [facility] Urine glucose measurement by automated test strip (mass/volume)Ordered By: Sedrick Pina on 07-14-2022 Glucose Auto test strip (U) [Mass/Vol] Normal mg/dL Normal [facility] Urine hemoglobin detection b y automated test stripOrdered By: Sedrick Pina on 07-14-2022 Hemoglobin Auto test strip Ql (U) Trace Negative [facility] Urine leukocyte esterase det ection by automated test stripOrdered By: Sedrick Pina on 07-14-2022 Leukocyte esterase Auto test strip Ql (U) 1+ Negative [facility] Urine sediment renal epithel ial cell count by microscopy (number/high power field)Ordered By: Sedrick Pina on 07-14-2022 Epithelial cells.renal LM.HPF (Urine sed) [#/Area] None seen [HPF] 0-1 [facility] Urobilinogen Auto test strip (U) [Mass/Vol]Ordered By: Sedrick Pina on 07-14-2022 Urobilinogen (U) [Mass/Vol] Normal mg/dL Normal [facility] WBC Auto (Bld) [#/Vol]Ordere d By: Sedrick Pina on 07-14-2022 WBC (Bld) [#/Vol] 7.7 10*3/uL 3.8-11.6 [facility] pH Auto test strip (U)Ordere d By: Sedrick Pina on 07-14-2022 pH (U) 6.0 [pH] 5.0-9.0 [facility] Amphetamine Screen Ql (U)Ord ered By: Bill Keith on 04-05-2022 Amphetamines Ql (U) Negative Negative [facility] Automated epithelial cells c ount in urine sediment (number/area)Ordered By: Bill Keith on 08-23-2022 Epithelial cells Auto (Urine sed) [#/Area] None seen [HPF] 0-2 [facility] Automated erythrocytes count in urine sediment (number/area)Ordered By: Bill Keith on 04-05-2022 RBC Auto (Urine sed) [#/Area] None seen [HPF] 0-4 [facility] Automated leukocytes count i n urine sediment (number/area)Ordered By: Bill Keith on 04-05-2022 WBC Auto (Urine sed) [#/Area] None seen [HPF] 0-4 [facility] Automated urine hyaline cast s count (number/volume)Ordered By: Bill Keith on 04-05-2022 Hyaline casts Auto (U) [#/Vol] None seen [LPF] 0-1 [facility] Barbiturates [Presence] in U rineOrdered By: Bill Keith on 04-05-2022 Barbiturates Ql (U) Negative Negative [facility] Benzodiazepines [Presence] i n UrineOrdered By: Bill Keith on 04-05-2022 Benzodiazepines Ql (U) Negative Negative [facility] Bilirubin Test strip Ql (U)O rdered By: Bill Keith on 04-05-2022 Bilirubin Ql (U) Negative Negative [facility] Cannabinoids [Presence] in U rine by Screen methodOrdered By: Bill Keith on 04-05-2022 Cannabinoids Screen Ql (U) Positive Negative [facility] Comment on above: These are unconfirme d results and should not be used for legal purposes. Drug Cut-Off Concentration: AMPH 1000 ng/mL CHARISSE 200 ng/mL JANIE 200 ng/mL COCM 300 ng/mL OP 300 ng/mL PCP 25 ng/mL THC 20 ng/mL Color Auto (U)Ordered By: Praneeth Keith on 04-05-2022 Color (U) Yellow Yellow [facility] HCG ( test) IA.rapi d Ql (U)Ordered By: Bill Keith on 04-05-2022 HCG ( test) Ql (U) Negative [facility] Ketones Auto test strip (U) [Mass/Vol]Ordered By: Bill Keith on 04-05-2022 Ketones (U) [Mass/Vol] Negative Negative Fi [facility] - Drug toxicology Ordered By: Bill Keith on 04-05-2022 Opiates Ql (U) Negative Negative [facility] Nitrite Test strip Ql (U)Ord ered By: Bill Keith on 04-05-2022 Nitrite Ql (U) Negative Negative [facility] Phencyclidine Screen Ql (U)O rdered By: Bill Keith on 04-05-2022 Phencyclidine Ql (U) Negative Negative [facility] Protein Auto test strip (U) [Mass/Vol]Ordered By: Bill Keith on 04-05-2022 Protein (U) [Mass/Vol] Negative Negative Fi [facility] Specific gravity Auto test s trip (U) [Rel density]Ordered By: Bill Keith on 04-05-2022 Specific gravity (U) [Rel density] 1.004 1.001-1.030 [facility] Urine bacteria detection by automated methodOrdered By: Bill Keith on 04-05-2022 Bacteria Auto Ql (U) None seen None Seen [facility] Urine clarity by refractomet ry automatedOrdered By: Bill Keith on 04-05-2022 Clarity Refractometry automated (U) Clear Clear [facility] Urine cocaine detectionOrder ed By: Bill Keith on 04-05-2022 Cocaine Ql (U) Negative Negative [facility] Urine glucose measurement by automated test strip (mass/volume)Ordered By: Bill Keith on 04-05-2022 Glucose Auto test strip (U) [Mass/Vol] Normal mg/dL Normal [facility] Urine hemoglobin detection b y automated test stripOrdered By: Bill Keith on 04-05-2022 Hemoglobin Auto test strip Ql (U) Trace Negative [facility] Urine leukocyte esterase det ection by automated test stripOrdered By: Bill Keith on 04-05-2022 Leukocyte esterase Auto test strip Ql (U) Negative Negative [facility] Urobilinogen Auto test strip (U) [Mass/Vol]Ordered By: Bill Keith on 04-05-2022 Urobilinogen (U) [Mass/Vol] Normal mg/dL Normal [facility] pH Auto test strip (U)Ordere d By: Bill Keith on 04-05-2022 pH (U) 8.0 [pH] 5.0-9.0 [facility] Activated partial thrombopla stin time (aPTT) in platelet poor plasma by coagulation aOrdered By: Feng Barlow on 03-14-2022 aPTT Coag (PPP) [Time] 31.7 s 25.1-36.5 [facility] Albumin [Mass/volume] in Ser um or PlasmaOrdered By: Feng Barlow on 03-14-2022 Albumin [Mass/Vol] 4.5 g/dL 3.2-5.5 [facility] Basophils Auto (Bld) [#/Vol] Ordered By: Feng Barlow on 03-14-2022 Basophils (Bld) [#/Vol] 0.1 10*3/uL 0.0-0.2 [facility] Basophils/100 WBC Auto (Bld) Ordered By: Feng Barlow on 03-14-2022 Basophils/100 WBC (Bld) 1.0 % . [facility] Blood hemoglobin measurement (mass/volume)Ordered By: Feng Barlow on 03-14-2022 Hemoglobin (Bld) [Mass/Vol] 14.1 g/dL 11.8-15.4 [facility] Blood leukocytes automated c ount (number/volume)Ordered By: Feng Barlow on 03-14-2022 WBC (Bld) [#/Vol] 6.0 10*3/uL 4.5-11.0 [facility] Creatine kinase [Enzymatic a ctivity/volume] in Serum or PlasmaOrdered By: Feng Barlow on 03-14-2022 CK [Catalytic activity/Vol] 81 U/L 22-269 [facility] Creatinine and Glomerular fi ltration rate.predicted panel (S/P/Bld)Ordered By: Feng Barlow on 03-14-2022 Creatinine [Mass/Vol] 1.04 mg/dL 0.44-1.03 [facility] Eosinophils Auto (Bld) [#/Vo l]Ordered By: Feng Barlow on 03-14-2022 Eosinophils (Bld) [#/Vol] 0.0 10*3/uL 0.0-0.45 [facility] Eosinophils/100 WBC Auto (Bl d)Ordered By: Feng Barlow on 03-14-2022 Eosinophils/100 WBC (Bld) 0.8 % . [facility] Erythrocyte distribution wid th Auto (RBC) [Ratio]Ordered By: Feng Barlow on 03-14-2022 Erythrocyte distribution width (RBC) [Ratio] 13.8 % 11.9-15.3 [facility] Estimated glomerular filtrat ion rate (GFR) non- AmericanOrdered By: Feng Barlow on 03-14-2022 GFR/1.73 sq M.predicted among non-blacks MDRD (S/P/Bld) [Vol rate/Area] > 60 mL/Min [facility] Globulin Calc (S) [Mass/Vol] Ordered By: Feng Barlow on 03-14-2022 Globulin (S) [Mass/Vol] 2.6 g/dL [facility] Hematocrit Auto (Bld) [Volum e fraction]Ordered By: Feng Barlow on 03-14-2022 Hematocrit (Bld) [Volume fraction] 43.0 % 34.0-46.4 [facility] Laboratory - Chemistry and C hemistry - challengeOrdered By: Feng Barlow on 03-14-2022 Magnesium [Mass/Vol] 1.9 mg/dL 1.6-2.6 [facility] - CoagulationOrde red By: Feng Barlow on 03-14-2022 PT Coag (PPP) [Time] 13.7 s 9.0-12.9 [facility] - Hematology and Cell countsOrdered By: Feng Barlow on 03-14-2022 Nucleated RBC/100 WBC (Bld) [Ratio] 0.1 % 0-0.5 [facility] Lymphocytes Auto (Bld) [#/Vo l]Ordered By: Feng Barlow on 03-14-2022 Lymphocytes (Bld) [#/Vol] 1.9 10*3/uL 1.00-4.8 [facility] Lymphocytes/100 WBC Auto (Bl d)Ordered By: Feng Barlow on 03-14-2022 Lymphocytes/100 WBC (Bld) 31.0 % . [facility] MCH Auto (RBC) [Entitic mass ]Ordered By: Feng Barlow on 03-14-2022 MCH (RBC) [Entitic mass] 29.2 pg 24.7-34.3 [facility] MCHC Auto (RBC) [Mass/Vol]Or dered By: Feng Barlow on 03-14-2022 MCHC (RBC) [Mass/Vol] 32.7 g/dL 32.0-35.0 [facility] [place] MCV Auto (RBC) [Entitic vol] Ordered By: Feng Barlow on 03-14-2022 MCV (RBC) [Entitic vol] 89.2 fL 80-100 [facility] Monocytes Auto (Bld) [#/Vol] Ordered By: Feng Barlow on 03-14-2022 Monocytes (Bld) [#/Vol] 0.4 10*3/uL 0.0-0.8 [facility] Monocytes/100 WBC Auto (Bld) Ordered By: Feng Barlow on 03-14-2022 Monocytes/100 WBC (Bld) 7.1 % . [facility] Neutrophils Auto (Bld) [#/Vo l]Ordered By: Feng Barlow on 03-14-2022 Neutrophils (Bld) [#/Vol] 3.6 10*3/uL 1.8-7.7 [facility] Neutrophils/100 WBC Auto (Bl d)Ordered By: Feng Barlow on 03-14-2022 Neutrophils/100 WBC (Bld) 60.1 % . [facility] No Panel InformationOrdered By: Feng Barlow on 03-14-2022 Estimated GFR () > 60 mL/Min [facility] Comment on above: GFR estimated refere nce range: According to KDOQI guidelines, <60 ml/min/1.73m2 is sufficient to diagnose a patient with chronic kidney disease. Pharmacy Creatinine Clearance (Chem 69.36 [facility] Platelet mean volume Auto (B ld) [Entitic vol]Ordered By: Feng Barlow on 03-14-2022 Platelet mean volume (Bld) [Entitic vol] 9.1 fL 6.3-10.7 [facility] Platelet poor plasma interna tional normalized ratio (INR) by coagulation assay (relatOrdered By: Feng Barlow on 03-14-2022 INR Coag (PPP) [Relative time] 1.2 {INR} [facility] Comment on above: INR Therapeutic Rang [...] 03-14-2022 Platelets (Bld) [#/Vol] 221 10*3/uL 150-450 [facility] Protein [Mass/volume] in Ser um or PlasmaOrdered By: Feng Barlow on 03-14-2022 Protein [Mass/Vol] 7.1 g/dL 6.1-7.9 [facility] RBC Auto (Bld) [#/Vol]Ordere d By: Feng Barlow on 03-14-2022 RBC (Bld) [#/Vol] 4.82 10*6/uL 3.60-5.[address] [facility] Serum or plasma alanine greene otransferase measurement without P-5'-P (enzymatic activiOrdered By: Feng Barlow on 03-14-2022 ALT No additional P-5'-P [Catalytic activity/Vol] 14 U/L 10-60 [facility] Serum or plasma albumin/glob ulin mass ratioOrdered By: Feng Barlow on 03-14-2022 Albumin/Globulin [Mass ratio] 1.7 {ratio} [facility] Serum or plasma alkaline donna sphatase measurement (enzymatic activity/volume)Ordered By: Feng Barlow on 03-14-2022 ALP [Catalytic activity/Vol] 65 U/L 32-92 [facility] Serum or plasma aspartate am inotransferase measurement (enzymatic activity/volume)Ordered By: Feng Barlow on 03-14-2022 AST [Catalytic activity/Vol] 18 U/L 10-42 [facility] Serum or plasma calcium france urement (mass/volume)Ordered By: Feng Barlow on 03-14-2022 Calcium [Mass/Vol] 9.7 mg/dL 8.2-10.2 [facility] Serum or plasma chloride joanne surement (moles/volume)Ordered By: Feng Barlow on 03-14-2022 Chloride [Moles/Vol] 102 mmol/L 95-114 [facility] Serum or plasma creatine kin ase MB (CKMB)/total creatine kinase (CK) ratio by calculaOrdered By: Feng Barlow on 03-14-2022 CK.MB Calc [Catalytic fraction] 1.3 % 0.00-2.50 [facility] Serum or plasma creatine kin ase MB measurement (mass/volume)Ordered By: Feng Barlow on 03-14-2022 CK.MB [Mass/Vol] 1.1 ng/mL 0.6-6.3 [facility] Serum or plasma glucose france urement (mass/volume)Ordered By: Feng Barlow on 03-14-2022 Glucose [Mass/Vol] 118 mg/dL 70-100 [facility] Comment on above: ADA recommended refe rence range Random Glucose Reference Range is dependent on time and content of last meal. Glucose of more than 200 mg/dL in a nonstressed, ambulatory subject supports the diagnosis of Diabetes Mellitus. Serum or plasma potassium me asurement (moles/volume)Ordered By: Feng Barlow on 03-14-2022 Potassium [Moles/Vol] 3.5 mmol/L 3.5-5.1 [facility] Serum or plasma sodium measu rement (moles/volume)Ordered By: Feng Barlow on 03-14-2022 Sodium [Moles/Vol] 137 mmol/L 136-146 [facility] Serum or plasma total biliru bin measurement (mass/volume)Ordered By: Feng Barlow on 03-14-2022 Bilirubin [Mass/Vol] 0.8 mg/dL 0.3-1.2 [facility] Serum or plasma total carbon dioxide measurement (moles/volume)Ordered By: Feng Barlow on 03-14-2022 CO2 [Moles/Vol] 24.8 mmol/L 22.0-30.0 [facility] Serum or plasma urea nitroge n measurement (mass/volume)Ordered By: Feng Barlow on 03-14-2022 Urea nitrogen [Mass/Vol] 14 mg/dL 9-23 [facility] Troponin I.cardiac [Mass/vol ume] in Serum or Plasma by High sensitivity methodOrdered By: Feng Barlow on 03-14-2022 Troponin I.cardiac High sensitivity method [Mass/Vol] < 3 pg/mL 0-15 [facility] Albumin [Mass/volume] in Ser um or PlasmaOrdered By: Brando Guy on 02-10-2022 Albumin [Mass/Vol] 3.9 g/dL 3.2-5.5 [facility] Basophils Auto (Bld) [#/Vol] Ordered By: Brando Guy on 02-10-2022 Basophils (Bld) [#/Vol] 0.0 10*3/uL 0.0-0.2 [facility] Basophils/100 WBC Auto (Bld) Ordered By: Brando Guy on 02-10-2022 Basophils/100 WBC (Bld) 0.7 % . [facility] Bilirubin Test strip Ql (U)O rdered By: Brando Guy on 02-10-2022 Bilirubin Ql (U) Negative Negative [facility] Blood hemoglobin measurement (mass/volume)Ordered By: Brando Guy on 02-10-2022 Hemoglobin (Bld) [Mass/Vol] 13.9 g/dL 11.8-15.4 [facility] Blood leukocytes automated c ount (number/volume)Ordered By: Brando Guy on 02-10-2022 WBC (Bld) [#/Vol] 6.4 10*3/uL 4.5-11.0 [facility] Color Auto (U)Ordered By: Fidencio Guy on 02-10-2022 Color (U) Yellow Yellow [facility] Creatinine and Glomerular fi ltration rate.predicted panel (S/P/Bld)Ordered By: Brando Guy on 02-10-2022 Creatinine [Mass/Vol] 0.90 mg/dL 0.44-1.03 [facility] Eosinophils Auto (Bld) [#/Vo l]Ordered By: Brando Guy on 02-10-2022 Eosinophils (Bld) [#/Vol] 0.2 10*3/uL 0.0-0.45 [facility] Eosinophils/100 WBC Auto (Bl d)Ordered By: Brando Guy on 02-10-2022 Eosinophils/100 WBC (Bld) 2.5 % . [facility] Erythrocyte distribution wid th Auto (RBC) [Ratio]Ordered By: Brando Guy on 02-10-2022 Erythrocyte distribution width (RBC) [Ratio] 13.5 % 11.9-15.3 [facility] Estimated glomerular filtrat ion rate (GFR) non- AmericanOrdered By: Brando Guy on 02-10-2022 GFR/1.73 sq M.predicted among non-blacks MDRD (S/P/Bld) [Vol rate/Area] > 60 mL/Min [facility] Globulin Calc (S) [Mass/Vol] Ordered By: Brando Guy on 02-10-2022 Globulin (S) [Mass/Vol] 2.8 g/dL [facility] HCG ( test) IA.rapi d Ql (U)Ordered By: Brando Guy on 02-10-2022 HCG ( test) Ql (U) Negative [facility] Hematocrit Auto (Bld) [Volum e fraction]Ordered By: Brando Guy on 02-10-2022 Hematocrit (Bld) [Volume fraction] 42.1 % 34.0-46.4 [facility] Ketones Auto test strip (U) [Mass/Vol]Ordered By: Brando Guy on 02-10-2022 Ketones (U) [Mass/Vol] Negative Negative Fi [facility] - Hematology and Cell countsOrdered By: Brando Guy on 02-10-2022 Nucleated RBC/100 WBC (Bld) [Ratio] 0.0 % 0-0.5 [facility] Lymphocytes Auto (Bld) [#/Vo l]Ordered By: Brando Guy on 02-10-2022 Lymphocytes (Bld) [#/Vol] 1.9 10*3/uL 1.00-4.8 [facility] Lymphocytes/100 WBC Auto (Bl d)Ordered By: Brando Guy on 02-10-2022 Lymphocytes/100 WBC (Bld) 29.2 % . [facility] MCH Auto (RBC) [Entitic mass ]Ordered By: Brando Guy on 02-10-2022 MCH (RBC) [Entitic mass] 28.8 pg 24.7-34.3 [facility] MCHC Auto (RBC) [Mass/Vol]Or dered By: Brando Guy on 02-10-2022 MCHC (RBC) [Mass/Vol] 33.1 g/dL 32.0-35.0 [facility] [place] MCV Auto (RBC) [Entitic vol] Ordered By: Brando Guy on 02-10-2022 MCV (RBC) [Entitic vol] 87.1 fL 80-100 [facility] Monocytes Auto (Bld) [#/Vol] Ordered By: Brando Guy on 02-10-2022 Monocytes (Bld) [#/Vol] 0.5 10*3/uL 0.0-0.8 [facility] Monocytes/100 WBC Auto (Bld) Ordered By: Brando Guy on 02-10-2022 Monocytes/100 WBC (Bld) 8.6 % . [facility] Neutrophils Auto (Bld) [#/Vo l]Ordered By: Brando Guy on 02-10-2022 Neutrophils (Bld) [#/Vol] 3.8 10*3/uL 1.8-7.7 [facility] Neutrophils/100 WBC Auto (Bl d)Ordered By: Brando Guy on 02-10-2022 Neutrophils/100 WBC (Bld) 59.0 % . [facility] Nitrite Test strip Ql (U)Ord ered By: Brando Guy on 02-10-2022 Nitrite Ql (U) Negative Negative [facility] No Panel InformationOrdered By: Brando Guy on 02-10-2022 Lamotrigine (Lamictal) Level <1.0 ug/mL 2.0-20.0 [facility] Comment on above: Detection Limit = 1. 0 Performed at: [facility] [id number] Seat Cover Maker: Brent Alves MD, Phone: [phone] Estimated GFR () > 60 mL/Min [facility] Comment on above: GFR estimated refere nce range: According to KDOQI guidelines, <60 ml/min/1.73m2 is sufficient to diagnose a patient with chronic kidney disease. Pharmacy Creatinine Clearance (Chem 79.33 [facility] Platelet mean volume Auto (B ld) [Entitic vol]Ordered By: Brando Guy on 02-10-2022 Platelet mean volume (Bld) [Entitic vol] 9.1 fL 6.3-10.7 [facility] Platelets Auto (Bld) [#/Vol] Ordered By: Brando Guy on 02-10-2022 Platelets (Bld) [#/Vol] 200 10*3/uL 150-450 [facility] Prolactin [Mass/volume] in S n[place] or PlasmaOrdered By: Brando Guy on 02-10-2022 Prolactin [Mass/Vol] 28.09 ng/mL 3.34-26.72 [facility] Protein Auto test strip (U) [Mass/Vol]Ordered By: Brando Guy on 02-10-2022 Protein (U) [Mass/Vol] Negative Negative [facility] Protein [Mass/volume] in Ser um or PlasmaOrdered By: Brando Guy on 02-10-2022 Protein [Mass/Vol] 6.7 g/dL 6.1-7.9 [facility] RBC Auto (Bld) [#/Vol]Ordere d By: Brando Guy on 02-10-2022 RBC (Bld) [#/Vol] 4.84 10*6/uL 3.60-5.[address] [facility] Serum or plasma alanine greene otransferase measurement without P-5'-P (enzymatic activiOrdered By: Brando Guy on 02-10-2022 ALT No additional P-5'-P [Catalytic activity/Vol] 19 U/L 10-60 [facility] Serum or plasma albumin/glob ulin mass ratioOrdered By: Brando Guy on 02-10-2022 Albumin/Globulin [Mass ratio] 1.4 {ratio} [facility] Serum or plasma alkaline donna sphatase measurement (enzymatic activity/volume)Ordered By: Brando Guy on 02-10-2022 ALP [Catalytic activity/Vol] 67 U/L 32-92 [facility] Serum or plasma aspartate am inotransferase measurement (enzymatic activity/volume)Ordered By: Brando Guy on 02-10-2022 AST [Catalytic activity/Vol] 22 U/L 10-42 [facility] Serum or plasma calcium france urement (mass/volume)Ordered By: Brando Guy on 02-10-2022 Calcium [Mass/Vol] 9.5 mg/dL 8.2-10.2 [facility] Serum or plasma chloride joanne surement (moles/volume)Ordered By: Brando Guy on 02-10-2022 Chloride [Moles/Vol] 102 mmol/L 95-114 [facility] Serum or plasma glucose france urement (mass/volume)Ordered By: Brando Guy on 02-10-2022 Glucose [Mass/Vol] 99 mg/dL 70-100 [facility] Comment on above: ADA recommended refe rence range Random Glucose Reference Range is dependent on time and content of last meal. Glucose of more than 200 mg/dL in a nonstressed, ambulatory subject supports the diagnosis of Diabetes Mellitus. Serum or plasma potassium me asurement (moles/volume)Ordered By: Brando Guy on 02-10-2022 Potassium [Moles/Vol] 3.8 mmol/L 3.5-5.1 [facility] Serum or plasma sodium measu rement (moles/volume)Ordered By: Brando Guy on 02-10-2022 Sodium [Moles/Vol] 137 mmol/L 136-146 [facility] Serum or plasma total biliru bin measurement (mass/volume)Ordered By: Brando Guy on 02-10-2022 Bilirubin [Mass/Vol] 0.5 mg/dL 0.3-1.2 [facility] Serum or plasma total carbon dioxide measurement (moles/volume)Ordered By: Brando Guy on 02-10-2022 CO2 [Moles/Vol] 26.4 mmol/L 22.0-30.0 [facility] Serum or plasma urea nitroge n measurement (mass/volume)Ordered By: Brando Guy on 02-10-2022 Urea nitrogen [Mass/Vol] 20 mg/dL 9-23 [facility] Specific gravity Auto test s trip (U) [Rel density]Ordered By: Brando Guy on 02-10-2022 Specific gravity (U) [Rel density] 1.013 1.001-1.030 [facility] Urine clarity by refractomet ry automatedOrdered By: Brando Guy on 02-10-2022 Clarity Refractometry automated (U) Clear Clear [facility] Urine glucose measurement by automated test strip (mass/volume)Ordered By: Brando Guy on 02-10-2022 Glucose Auto test strip (U) [Mass/Vol] Normal mg/dL [facility] Urine hemoglobin detection b y automated test stripOrdered By: Brando Guy on 02-10-2022 Hemoglobin Auto test strip Ql (U) Negative [facility] Urine leukocyte esterase det ection by automated test stripOrdered By: Brando Guy on 02-10-2022 Leukocyte esterase Auto test strip Ql (U) Negative [facility] Urobilinogen Auto test strip (U) [Mass/Vol]Ordered By: Brando Guy on 02-10-2022 Urobilinogen (U) [Mass/Vol] Normal mg/dL [facility] pH Auto test strip (U)Ordere d By: Brando Guy on 02-10-2022 pH (U) 6.5 [pH] 5.0-9.0 [facility] Urine culture routineOrdered By: Kristine Welsh on 01-31-2022 Bacteria identified Cx Nom (U) 2 Days [facility] Amorphous urine sedimentOrde red By: Kristine Welsh on 01-29-2022 Amorphous sediment LM Ql (Urine sed) See comment Negative [facility] Comment on above: Unable to obtain acc urate result due to color interference. Automated epithelial cells c ount in urine sediment (number/area)Ordered By: Kristine Welsh on 01-29-2022 Epithelial cells Auto (Urine sed) [#/Area] 10-19 [HPF] 0-2 [facility] Automated erythrocytes count in urine sediment (number/area)Ordered By: Kristine Welsh on 01-29-2022 RBC Auto (Urine sed) [#/Area] Innumerable [HPF] 0-4 [facility] Automated leukocytes count i n urine sediment (number/area)Ordered By: Kristine Welsh on 01-29-2022 WBC Auto (Urine sed) [#/Area] 3-4 [HPF] 0-4 [facility] Automated urine specific gra vity by refractometryOrdered By: Kristine Welsh on 01-29-2022 Specific gravity Refractometry automated (U) [Rel density] 1.036 1.001-1.030 [facility] Comment on above: Rechecked by refract ometer Bilirubin Auto test strip Ql (U)Ordered By: Kristine Welsh on 01-29-2022 Bilirubin Ql (U) See comment Negative [facility] Comment on above: Unable to obtain acc urate result due to color interference. HCG ( test) IA.rapi d Ql (U)Ordered By: Kristine Welsh on 01-29-2022 HCG ( test) Ql (U) Negative [facility] Ketones Test strip (U) [Mass /Vol]Ordered By: Kristine Welsh on 01-29-2022 Ketones (U) [Mass/Vol] See comment Negative [facility] Comment on above: Unable to obtain acc urate result due to color interference. Laboratory - Microbiology an d Antimicrobial susceptibilityOrdered By: Kristine Welsh on 01-29-2022 C. trachomatis DNA CHARLINE+probe Ql (Unsp spec) Negative Negative [facility] N. gonorrhoeae DNA CHARLINE+probe Ql (Unsp spec) Negative Negative [facility] Comment on above: Performed at: =[address] [id number] Seat Cover Maker: Sara Estes MD, Phone: [phone] Mucus LM Ql (Urine sed)Order ed By: Kristine Welsh on 01-29-2022 Mucus Ql (Urine sed) 1+ [LPF] [facility] Protein Auto test strip (U) [Mass/Vol]Ordered By: Kristine Welsh on 01-29-2022 Protein (U) [Mass/Vol] See comment Negative [facility] Comment on above: Unable to obtain acc urate result due to color interference. Urine appearanceOrdered By: Kristine Welsh on 01-29-2022 Appearance (U) Turbid Clear [facility] Urine bacteria detection by automated methodOrdered By: Kristine Welsh on 01-29-2022 Bacteria Auto Ql (U) Rare None Seen [facility] Urine colorOrdered By: Gregg Welsh on 01-29-2022 Color (U) Red Yellow [facility] Urine glucose measurement by automated test strip (mass/volume)Ordered By: Kristine Welsh on 01-29-2022 Glucose Auto test strip (U) [Mass/Vol] See comment [facility] Comment on above: Unable to obtain acc urate result due to color interference. Urine leukocyte esterase det ection by automated test stripOrdered By: Kristine Welsh on 01-29-2022 Leukocyte esterase Auto test strip Ql (U) See comment Negative [facility] Comment on above: Unable to obtain acc urate result due to color interference. Urine nitrite detection by a utomated test stripOrdered By: Kristine Welsh on 01-29-2022 Nitrite Auto test strip Ql (U) See comment Negative [facility] Comment on above: Unable to obtain acc urate result due to color interference. Urobilinogen Test strip (U) [Mass/Vol]Ordered By: Kristine Welsh on 01-29-2022 Urobilinogen (U) [Mass/Vol] See comment [facility] Comment on above: Unable to obtain acc urate result due to color interference. pH Auto test strip (U)Ordere d By: Kristine Welsh on 01-29-2022 pH (U) See comment 5.0-9.0 [facility] Comment on above: Unable to obtain acc urate result due to color interference. [facility] 01-05-2022 [facility] HNO ID: [id number] Author: Lexie Gooden, hammer adjuster Service: Radiology Author Type: Social Sciences Professor Type: Allied Health Filed: 01/05/2022 3:15 PM [...] DATA: Not applicable SIGNED BY: Lexie Gooden, hammer adjuster, Scarlet Del Castillo, RT(R) January 05, 2022 3:00 PM Normal [facility] MRI BRAIN WO IVCONon 01-05- 022 MRI BRAIN WO IVCON * * *Final Report* * * DATE OF EXAM: Jan 05 2022 3:16PM [facility] [id number] - MRI BRAIN WO IVCON [...] Normal remaining brain without acute intracranial disease. Wallpaper Inspector: HODAN Transcribe Date/Time: Jan 05 2022 3:24P Dictated by : SHAUN RODRIGUEZ MD This examination was interpreted and the report reviewed and electronically signed by: SHAUN RODRIGUEZ MD on Jan 05 2022 3:29PM EST [id number] Normal [facility] CT Abdomen/Pelvis w/o Contrvalerie lopez 07-21-2021 CT Abdomen/Pelvis w/o Contrast History: Lower [...] by SHAUN ZULUAGA on 07/21/2021 1657 Normal [facility] Sign Language Interpreter Vital Signs Date Time Vital Sign Value Performing Clinician Facility 08-06-2024 10:45-0500 Heart rate 82 /min Ulises ZimmerBluenog [facility] 08-06-2024 10:45-0500 SaO2% (BldA) [Mass fraction] 98 % Ulises Cedrick [facility] 08-06-2024 10:10-0500 Diastolic blood pressure 71 mm[Hg] Ulises ZimmerBluenog [facility] 08-06-2024 10:10-0500 Heart rate 78 /min Ulises ZimmerBluenog [facility] 08-06-2024 10:10-0500 Mean blood pressure 88 mm[Hg] Ulises ZimmerBluenog [facility] 08-06-2024 10:10-0500 Respiratory rate 18 /min Ulises Philip [facility] 08-06-2024 10:10-0500 SaO2% (BldA) [Mass fraction] 100 % Ulises Philip [facility] 08-06-2024 10:10-0500 Systolic blood pressure 123 mm[Hg] Ulisse Philip [facility] 08-06-2024 09:21-0500 Body temperature 98.24 [degF] Ulises Philip [facility] 08-06-2024 09:21-0500 Diastolic blood pressure 89 mm[Hg] Ulises Philip [facility] 08-06-2024 09:21-0500 Heart rate 63 /min Ulises Philip [facility] 08-06-2024 09:21-0500 Respiratory rate 18 /min Ulises Philip [facility] 08-06-2024 09:21-0500 SaO2% (BldA) [Mass fraction] 97 % Ulises Philip [facility] 08-06-2024 09:21-0500 Systolic blood pressure 119 mm[Hg] Ulises Philip [facility] 09-20-2023 15:42-0500 Body height 152.4 cm 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 Phone: [facility] 09-20-2023 15:42-0500 Body mass index (BMI) [Ratio] 27.46 kg/m2 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 Phone: [facility] 09-20-2023 15:42-0500 Body temperature 97.7 [degF] 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 Phone: [facility] 09-20-2023 15:42-0500 Body weight 63.78 kg 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 Phone: [facility] 09-20-2023 15:42-0500 Diastolic blood pressure 60 mm[Hg] 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 Phone: [facility] 09-20-2023 15:42-0500 Heart rate 70 /min 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 Phone: [facility] 09-20-2023 15:42-0500 Respiratory rate 16 /min 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 Phone: [facility] 09-20-2023 15:42-0500 SaO2% (BldA) [Mass fraction] 98 % 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 Phone: [facility] 09-20-2023 15:42-0500 Systolic blood pressure 122 mm[Hg] 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 Phone: [facility] 07-11-2023 20:07-0500 Body height 152.4 cm MD Remi Andrew Work Phone: [facility] 07-11-2023 20:07-0500 Body temperature 98 [degF] MD Remi Andrew Work Phone: [facility] 07-11-2023 20:07-0500 Body weight 66.6 kg MD Remi Andrew Work Phone: [facility] 07-11-2023 20:07-0500 Diastolic blood pressure 69 mm[Hg] MD Remi Andrew Work Phone: [facility] 07-11-2023 20:07-0500 Heart rate 58 /min MD Remi Andrew Work Phone: [facility] 07-11-2023 20:07-0500 Respiratory rate 18 /min MD Remi Andrew Work Phone: [facility] 07-11-2023 20:07-0500 SaO2% (BldA) [Mass fraction] 98 % MD Remi Andrew Work Phone: [facility] 11-28-2023 20:07-0500 Systolic blood pressure 138 mm[Hg] MD Remi Andrew Work Phone: [facility] 11-22-2022 12:37-0400 Body height 152.4 cm Pacc 6 Work Phone: [facility] 11-22-2022 12:37-0400 Body temperature 98.2 [degF] Pacc 6 Work Phone: [facility] 11-22-2022 12:37-0400 Body weight 58.51 kg Pacc 6 Work Phone: [facility] 11-22-2022 12:37-0400 Diastolic blood pressure 52 mm[Hg] Pac 6 Work Phone: [facility] 11-22-2022 12:37-0400 Heart rate 57 /min Pac 6 Work Phone: [facility] 11-22-2022 12:37-0400 SaO2% (BldA) [Mass fraction] 99 % Pac 6 Work Phone: [facility] 11-22-2022 12:37-0400 Systolic blood pressure 101 mm[Hg] Pac 6 Work Phone: [facility] 11-22-2022 07:56-0400 Diastolic blood pressure 60 mm[Hg] Christiano Nichols MD Work Phone: [facility] 11-22-2022 07:56-0400 Systolic blood pressure 116 mm[Hg] Christiano Nichols MD Work Phone: [facility] 11-22-2022 07:54-0400 Body weight 56.7 kg Christiano Nichols MD Work Phone: [facility] 11-22-2022 07:54-0400 Heart rate 59 /min Christiano Nichols MD Work Phone: [facility] 11-22-2022 07:54-0400 SaO2% (BldA) [Mass fraction] 96 % Christiano Nichols MD Work Phone: [facility] 10-12-2022 13:51-0500 Body height 152.4 cm Robert Marin MD Work Phone: [facility] 10-12-2022 13:51-0500 Body weight 56.7 kg Robert Marin MD Work Phone: [facility] 10-12-2022 13:51-0500 Diastolic blood pressure 56 mm[Hg] Robert Marin MD Work Phone: [facility] 10-12-2022 13:51-0500 Heart rate 57 /min Robert Marin MD Work Phone: [facility] 10-12-2022 13:51-0500 Respiratory rate 17 /min Robert Marin MD Work Phone: [facility] 10-12-2022 13:51-0500 SaO2% (BldA) [Mass fraction] 98 % Robert Marin MD Work Phone: [facility] 10-12-2022 13:51-0500 Systolic blood pressure 110 mm[Hg] Robert Marin MD Work Phone: [facility] 10-03-2022 02:51-0500 Diastolic blood pressure 57 mm[Hg] MD Remi Andrew Work Phone: [facility] 10-03-2022 02:51-0500 Heart rate 99 /min MD Remi Andrew Work Phone: [facility] 10-03-2022 02:51-0500 Respiratory rate 18 /min MD Remi Andrew Work Phone: [facility] 10-03-2022 02:51-0500 SaO2% (BldA) [Mass fraction] 100 % MD Remi Andrew Work Phone: [facility] 10-03-2022 02:51-0500 Systolic blood pressure 112 mm[Hg] MD Remi Andrew Work Phone: [facility] 10-02-2022 20:13-0500 Body height 154.94 cm MD Remi Andrew Work Phone: [facility] 10-02-2022 20:13-0500 Body weight 57.3 kg MD Remi Andrew Work Phone: [facility] 10-02-2022 19:54-0500 Body temperature 97 [degF] MD Remi Andrew Work Phone: [facility] 08-26-2022 09:30-0500 Diastolic blood pressure 54 mm[Hg] MD Remi Andrew Work Phone: [facility] 08-26-2022 09:30-0500 Heart rate 86 /min MD Remi Andrew Work Phone: [facility] 08-26-2022 09:30-0500 Respiratory rate 16 /min MD Remi Andrew Work Phone: [facility] 08-26-2022 09:30-0500 SaO2% (BldA) [Mass fraction] 98 % MD Remi Andrew Work Phone: [facility] 08-26-2022 09:30-0500 Systolic blood pressure 113 mm[Hg] MD Remi Andrew Work Phone: [facility] 08-25-2022 13:14-0500 Body height 152.4 cm MD Remi Andrew Work Phone: [facility] 08-25-2022 13:14-0500 Body temperature 98.8 [degF] MD Remi Andrew Work Phone: [facility] 08-25-2022 13:14-0500 Body weight 58 kg MD Remi Andrew Work Phone: [facility] 07-15-2022 01:30-0500 Diastolic blood pressure 67 mm[Hg] MD Remi Andrew Work Phone: [facility] 07-15-2022 01:30-0500 Heart rate 78 /min MD Remi Andrew Work Phone: [facility] 07-15-2022 01:30-0500 Respiratory rate 16 /min MD Remi Andrew Work Phone: [facility] 07-15-2022 01:30-0500 SaO2% (BldA) [Mass fraction] 98 % MD Remi Andrew Work Phone: [facility] 07-15-2022 01:30-0500 Systolic blood pressure 115 mm[Hg] MD Remi Andrew Work Phone: [facility] 07-14-2022 23:54-0500 Body temperature 98.5 [degF] MD Remi Andrew Work Phone: [facility] 07-14-2022 19:55-0500 Body height 152.4 cm MD Remi Andrew Work Phone: [facility] 07-14-2022 19:55-0500 Body weight 5 kg MD Remi Andrew Work Phone: [facility] 04-05-2022 02:22-0400 Diastolic blood pressure 61 mm[Hg] MD Remi Andrew Work Phone: [facility] 04-05-2022 02:22-0400 Heart rate 54 /min MD Remi Andrew Work Phone: [facility] 04-05-2022 02:22-0400 Respiratory rate 18 /min MD Remi Andrew Work Phone: [facility] 04-05-2022 02:22-0400 SaO2% (BldA) [Mass fraction] 98 % MD Remi Andrew Work Phone: [facility] 04-05-2022 02:22-0400 Systolic blood pressure 107 mm[Hg] MD Remi Andrew Work Phone: [facility] 04-04-2022 23:47-0400 Body temperature 98.4 [degF] MD Remi Andrew Work Phone: [facility] 04-04-2022 23:46-0400 Body height 152.4 cm MD Remi Andrew Work Phone: [facility] 04-04-2022 23:46-0400 Body weight 59.96 kg MD Remi Andrew Work Phone: [facility] 03-14-2022 17:15-0400 Diastolic blood pressure 83 mm[Hg] MD Remi Andrew Work Phone: [facility] 03-14-2022 17:15-0400 Heart rate 74 /min MD Remi Andrew Work Phone: [facility] 03-14-2022 17:15-0400 Respiratory rate 16 /min MD Remi Andrew Work Phone: [facility] 03-14-2022 17:15-0400 SaO2% (BldA) [Mass fraction] 100 % MD Remi Andrew Work Phone: [facility] 03-14-2022 17:15-0400 Systolic blood pressure 120 mm[Hg] MD Remi Andrew Work Phone: [facility] 03-14-2022 14:57-0400 Body temperature 98.1 [degF] MD Remi Andrew Work Phone: [facility] 03-14-2022 14:54-0400 Body height 152.4 cm MD Remi Andrew Work Phone: [facility] 03-14-2022 14:54-0400 Body weight 58 kg MD Remi Andrew Work Phone: [facility] 02-10-2022 08:44-0400 Body temperature 96.8 [degF] MD Remi Andrew Work Phone: [facility] 02-10-2022 08:25-0400 Diastolic blood pressure 56 mm[Hg] MD Remi Andrew Work Phone: [facility] 02-10-2022 08:25-0400 Heart rate 55 /min MD Remi Andrew Work Phone: [facility] 02-10-2022 08:25-0400 Respiratory rate 16 /min MD Remi Andrew Work Phone: [facility] 02-10-2022 08:25-0400 SaO2% (BldA) [Mass fraction] 97 % MD Remi Andrew Work Phone: [facility] 02-10-2022 08:25-0400 Systolic blood pressure 113 mm[Hg] MD Remi Andrew Work Phone: [facility] 02-10-2022 06:03-0400 Body height 152.4 cm MD Remi Andrew Work Phone: [facility] 02-10-2022 06:03-0400 Body mass index (BMI) [Percentile] Per age and sex 76 % MD Remi Andrew Work Phone: [facility] 02-10-2022 06:03-0400 Body mass index (BMI) [Ratio] 24.4 kg/m2 MD Remi Andrew Work Phone: [facility] 02-10-2022 06:03-0400 Body weight 56.69 kg MD Remi Andrew Work Phone: [facility] 01-29-2022 16:57-0400 Body height 154.94 cm MD Remi Andrew Work Phone: [facility] 01-29-2022 16:57-0400 Body mass index (BMI) [Percentile] Per age and sex 79.6 % MD Remi Andrew Work Phone: [facility] 01-29-2022 16:57-0400 Body mass index (BMI) [Ratio] 25 kg/m2 MD Remi Andrew Work Phone: [facility] 01-29-2022 16:57-0400 Body temperature 98.5 [degF] MD Remi Andrew Work Phone: [facility] 01-29-2022 16:57-0400 Body weight 60 kg MD Remi Andrew Work Phone: [facility] 01-29-2022 16:57-0400 Diastolic blood pressure 63 mm[Hg] MD Remi Andrew Work Phone: [facility] 01-29-2022 16:57-0400 Heart rate 82 /min MD Remi Andrew Work Phone: [facility] 01-29-2022 16:57-0400 Respiratory rate 16 /min MD Remi Andrew Work Phone: [facility] 01-29-2022 16:57-0400 SaO2% (BldA) [Mass fraction] 97 % MD Remi Andrew Work Phone: [facility] 01-29-2022 16:57-0400 Systolic blood pressure 120 mm[Hg] MD Remi Andrew Work Phone: [facility] 12-22-2021 10:17-0400 Body height 152.4 cm Robert Marin MD Work Phone: [facility] 12-22-2021 10:17-0400 Body mass index (BMI) [Percentile] Per age and sex 83.81 % Robert Marin MD Work Phone: [facility] 12-22-2021 10:17-0400 Body weight 60.06 kg Robert Marin MD Work Phone: [facility] 12-22-2021 10:17-0400 Diastolic blood pressure 51 mm[Hg] Robert Marin MD Work Phone: [facility] 12-22-2021 10:17-0400 Heart rate 51 /min Robert Marin MD Work Phone: [facility] 12-22-2021 10:17-0400 Respiratory rate 19 /min Robert Marin MD Work Phone: [facility] 12-22-2021 10:17-0400 SaO2% (BldA) [Mass fraction] 99 % Robert Marin MD Work Phone: [facility] 12-22-2021 10: Systolic blood pressure 106 mm[Hg] Robert Marin MD Work Phone: [facility] Encounters Encounter Date Encounter Type Care Provider Facility Start: 08-06-2024 End: 08-06-2024 Emergency department patient visit Ulises Philip [facility] Start: 08-05-2024 End: 08-05-2024 ambulatory [place]Veyra [place] [place]: 08-05-2024 End: 08-05-2024 Patient encounter procedure Laurent Mason Azalia [facility] Start: 08-05-2024 End: 08-05-2024 ambulatory Laurent Marlon Azalia [place] Start: 08-04-2024 End: 08-04-2024 Clinisync Result Encounter Generic External Data Provider [facility] External Department Unsolicited Start: 08-04-2024 End: 08-04-2024 Clinisync Result Encounter Generic External Data Provider [facility] External Department Unsolicited Start: 08-01-2024 End: 08-01-2024 ambulatory SELF Facility:[facility] Start: 07-31-2024 End: 07-31-2024 E-mail encounter from caregiver Lona Urrutia RPh Work Phone: Neurology Start: 07-31-2024 End: 07-31-2024 ambulatory Lona Urrutia gilbert Work Phone: Neurology Comment on above: Pharmacy Visit [facility] Partial epilepsy wit h impairment of consciousness, intractable (HCC) (Primary Dx) Start: 07-31-2024 End: 07-31-2024 Telemedicine consultation with patient Lona Urrutia RPh Work Phone: Neurology Start: 07-26-2024 End: 07-29-2024 Clinisync Result Encounter Generic External Data Provider [facility] External Department Unsolicited Start: 07-26-2024 End: 07-29-2024 Clinisync Result Encounter Generic External Data Provider [facility] External Department Unsolicited Start: 07-26-2024 End: 07-26-2024 ambulatory REMI ANDREW Facility:[facility] Start: 07-25-2024 End: 07-29-2024 ambulatory Robert Marin MD Work Phone: Neurology Comment on above: Blood work schedulin g Start: 07-25-2024 End: 07-25-2024 Telephone encounter Robert Marin MD Work Phone: Neurology Comment on above: Medication Problem ( Briviact) Start: 07-19-2024 End: 07-22-2024 Refill Belén Peck PA-C Work Phone: Neurology Comment on above: Refill Request Start: 06-19-2024 End: 06-24-2024 Refill Christie Aldana CAB DRIVER Work Phone: [facility] Comment on above: [...] Start: 04-29-2024 End: 04-29-2024 ambulatory REMI ANDREW Facility:[facility] Start: 03-28-2024 End: 03-28-2024 ambulatory MD Remi Andrew Work Phone: [facility] Work Phone: Start: 03-28-2024 End: 03-28-2024 Patient encounter procedure MD Remi Andrew Work Phone: [facility] Start: 03-28-2024 End: 03-28-2024 ambulatory ESSENCE WARCHOL Not Available Start: 03-26-2024 End: 03-26-2024 ambulatory SELF Facility:[facility] Start: 01-25-2024 End: 01-25-2024 ambulatory Robert Marin MD Work Phone: Neurology Comment on above: Driving papers Start: 01-25-2024 Refill Delia Tellez Work Phone: Neurology Comment on above: Refill Request Start: 01-25-2024 End: 01-25-2024 Admission to same day surgery center Claudio Michaels KENIA.GYROSCOPE REPAIRER Work Phone: Neurosurgery Comment on above: Partial symptomatic epilepsy with complex partial seizures, not intractable, 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); S/P brain surgery Start: 01-25-2024 End: 01-25-2024 Telemedicine consultation with patient Claudio Michaels APRN.GYROSCOPE REPAIRER Work Phone: Neurosurgery Start: 01-12-2024 ambulatory Robert Mairn MD Work Phone: Neurology Comment on above: [employer]? Start: 01-05-2024 End: 01-05-2024 ambulatory ESSENCE DONGCHOL Not Available Start: 10-29-2023 Refill Sarahy Danese A PRN.GYROSCOPE REPAIRER Work Phone: Neurology Comment on above: Refill Request Start: 10-29-2023 Refill Sarahy Danese A PRN.GYROSCOPE REPAIRER Work Phone: Neurology Comment on above: Refill Request Start: 10-25-2023 End: 10-25-2023 ambulatory CHRISTIE R LAUSE Not Available Start: 10-25-2023 End: 10-25-2023 Lab Drop off Robyn Bundy [facility] Start: 09-20-2023 End: 09-20-2023 ambulatory CHRISTIE ALDANA Not Available Start: 09-20-2023 End: 09-20-2023 Office outpatient visit 15 minutes Christie Cruz Jovan CAB DRIVER Work Phone: [facility] Comment on above: Other epilepsy witho ut status epilepticus, not intractable (CMS/HCC) (Primary Dx); Anxiety and depression (CMS/HCC); S/P brain surgery; Seizure (CMS/HCC) Start: 09-20-2023 Chart abstracting Christiekaren Tang CAB DRIVER Work Phone: [facility] Start: 09-14-2023 Clinisync [...] with patient Robert Marin MD Work Phone: [facility] Start: 07-21-2023 End: 07-21-2023 Patient encounter procedure Claudio Michaels APRN.GYROSCOPE REPAIRER Work Phone: Neurosurgery Comment on above: Partial [...] patient visit MD Remi Andrew Work Phone: [facility] Work Phone: Start: 06-30-2023 End: 06-30-2023 ambulatory CHRISTIE ALDANA Not Available Start: 05-25-2023 Telephone encounter Robert camp MD Work Phone: Neurology Comment on above: Forms (Panfilo Garcia tu ) Start: 04-20-2023 Refill Robert Marin MD [...] patient Evaristo Torres PA-C Work Phone: [facility] Start: 02-07-2023 End: 02-07-2023 Nursing evaluation of patient and report Lona Martin RN Neurosurgery Comment on above: Visit for suture rem oval (Primary Dx) Start: 01-27-2023 Telephone encounter Jess sanchez MD Work Phone: Neurology Comment on above: Received Outside [facility] ([facility] ) Start: 01-24-2023 End: 01-24-2023 Patient encounter [...] 01-10-2023 ambulatory Jess solares MD Work Phone: [facility] Start: 01-10-2023 Patient encounter status Jose J David MD Work Phone: Neurosurgery Start: 01-10-2023 Preprocedural examination done Jess David MD Work Phone: Neurosurgery Start: 01-10-2023 End: 01-10-2023 Telemedicine consultation with patient Jess David MD Work Phone: [facility] Start: 01-05-2023 Telephone encounter Jess sanchez MD Work Phone: Neurosurgery Comment on above: Baby Doctor - [facility] ther Start: 12-26-2022 Telephone encounter Jess sanchez MD Work Phone: Neurology Comment on above: Baby Doctor - O ther Acute deep vein thro mbosis (DVT) of brachial vein of left upper extremity (HCC) (Primary Dx) Start: 12-23-2022 Telephone encounter Jess sanchez MD Work Phone: Neurosurgery Comment on above: Baby Doctor - O ther Start: 12-06-2022 Chart abstracting [...] to establishment [address] Work Phone: [facility] Start: 11-22-2022 End: 11-22-2022 ambulatory [...] Work Phone: Cardiology Start: 10-19-2022 Admission to [facility] Jess David MD Work Phone: Neurosurgery Comment on above: Schedule Surgery (Ri ght SEEG) Start: 10-19-2022 ambulatory Jess solares MD Work Phone: [facility] Start: 10-19-2022 Patient encounter status Jose J David MD Work Phone: Neurosurgery Start: 10-18-2022 End: 10-18-2022 Subsequent hospital visit by physician Jenna Singh [facility] Research (7t) Work Phone: Radiology [...] with patient Jess David MD Work Phone: [facility] Start: 10-12-2022 End: 10-12-2022 Patient encounter procedure Robert Marin MD Work Phone: Neurology Comment on above: Partial symptomatic epilepsy with complex partial seizures, not intractable, 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); Seizure (HCC) Start: 10-02-2022 End: 10-03-2022 Emergency department patient visit MD Remi Andrew Work Phone: [facility] Work Phone: Start: 09-28-2022 End: 09-28-2022 ambulatory Robert Marin MD Work Phone: Neurology Comment on above: Partial symptomatic epilepsy with complex partial seizures, not intractable, 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) Start: 09-28-2022 End: 09-28-2022 Telemedicine consultation with patient Robert Marin MD Work Phone: [facility] Start: 09-20-2022 ambulatory Robert Marin [...] epilepticus (HCC) [G40.209] Start: 09-03-2022 ambulatory Nurse Dag Coater NURSE ANODIC TREATER Comment on above: Medication Problem ( Possible side effects to medication) Start: 08-31-2022 Chart abstracting Katelin dean Research Coordinator Neurology Start: 08-30-2022 Telephone encounter Robert camp MD Work Phone: Neurology Comment on above: Nm Pet Request Start: 08-29-2022 Chart abstracting Katelin dean Research Coordinator Neurology Comment on above: Informed Consent (IR B [id number]) Start: 08-25-2022 Telephone encounter Robert camp MD Work Phone: Neurology Comment on above: Other ([facility] ED calling to speak with Dr. Marin; pt in ED d/t seizures) Start: 08-25-2022 End: 08-26-2022 Emergency department patient visit MD Remi Andrew Work Phone: [facility] Work Phone: Start: 07-14-2022 End: 07-15-2022 Emergency department patient visit MD Remi Andrew Work Phone: [facility] Start: 07-11-2022 End: 07-11-2022 ambulatory Robert Marin MD Work Phone: Neurology Comment on above: Partial symptomatic epilepsy with complex partial seizures, not intractable, 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) Start: 07-11-2022 End: 07-11-2022 Telemedicine consultation with patient Robert Marin MD Work Phone: [facility] Start: 06-16-2022 Telephone encounter Robert camp MD Work Phone: Neurology Comment on above: Forms ([facility] DD/) Start: 05-03-2022 End: 05-03-2022 ambulatory Jorge Galvez MD Work Phone: Cardiology Comment on above: Palpitations [R00.2 (ICD-10-CM)] (Primary Dx) Start: 05-03-2022 End: 05-03-2022 Telemedicine consultation with patient Jorge Galvez MD Work Phone: [facility] Start: 04-27-2022 ambulatory Jorge Galvez MD [...] patient visit MD Remi Andrew Work Phone: [facility] Start: 03-28-2022 End: 03-28-2022 ambulatory Robert Marin MD Work Phone: Neurology Comment on above: Partial symptomatic epilepsy with complex partial seizures, not intractable, without status epilepticus (HCC) Start: 03-28-2022 End: 03-28-2022 Telemedicine consultation with patient Robert Marin MD Work Phone: [facility] Start: 03-16-2022 End: 03-16-2022 Patient encounter procedure MD Remi Andrew Work Phone: [facility]Electrodiagnostics Start: 03-14-2022 End: 03-14-2022 Emergency department patient visit MD Remi Andrew Work Phone: [facility] Start: 03-14-2022 Telephone encounter Robert camp MD Work Phone: Neurology Comment on above: Medication Problem ( AEDs - Shaky, Lightheaded, Increased Heart Rate) Start: 02-10-2022 Telephone encounter Robert camp MD Work Phone: Neurology Comment on above: medication concern ( lamical and keppra) Seizures Start: 02-10-2022 End: 02-10-2022 Emergency department patient visit MD Remi Andrew Work Phone: [facility] Start: 01-29-2022 End: 01-29-2022 Emergency department patient visit MD Remi Andrew Work Phone: [facility] Start: 01-05-2022 End: 01-05-2022 Subsequent hospital visit by physician Mr Lakeisha Holland (Istat/3t) Work Phone: [facility] Radiology MRI Comment on above: Partial [...] Start: 11-18-2021 Patient encounter procedure Radha Cotter APRN.GYROSCOPE REPAIRER Work Phone: Neurology Comment on above: Convulsions, unspeci fied convulsion type (HCC) (Primary Dx) Procedures Date Procedure Procedure Detail Performing Clinician Start: 08-04-2024 [facility] PREG QUANT HCG Essence CHAMPION Work Phone: Start: 07-26-2024 BRIVARACETAM SERPL-MCNC Generic External Data Provider Start: 09-14-2023 TB CULTURE URINE Generic External Data Provider Start: [...] H/O: surgery S/P brain surgery Claudio Michaels TACKING MACHINE OPERATOR.GYROSCOPE REPAIRER Work Phone: H/O: surgery S/P brain surgery Christie Aldana CAB DRIVER Work Phone: H/O: surgery S/P brain surgery Claudio Michaels TACKING MACHINE OPERATOR.GYROSCOPE REPAIRER Work Phone: Urine culture MD Remi cruz Work Phone: Plan of Treatment Date Care Activity Detail Author Start: 04-10-2025 Urine microalbumin profile [facility] Start: 07-31-2024 End: 07-31-2024 ambulatory 07/31/2024 11:30 AM EST [facility] Neurology [address] [place] [address] Lona Urrutia [facility] [address] [facility] [address] [place] [address] Pharmacy f/u Neurology Comment on above: Pharmacy f/u Start: 07-25-2024 End: 10-24-2024 Brivaracetam [Mass/volume] in Serum or Plasma BRIVARACETAM Lab Routine Partial epilepsy with impairment of consciousness, intractable (HCC) Expected: 07/25/2024, Expires: 10/24/2024 [facility] Work Phone: Comment on above: Expected: 07/25/2024 , Expires: 10/24/2024 Start: 06-10-2024 End: 06-10-2024 ambulatory 06/10/2024 9:30 AM EDT [facility] Neurology [address] [id number] Robert Marin MD [address] [place] [address] Driving privileges update paperwork after 04/02/24 Neurology Comment on above: Driving privileges u pdate paperwork after 04/02/24 Start: 04-14-2024 Covid-19 Vaccine ( season) Covid-19 Vaccine ( season) [facility] Start: 04-14-2024 Influenza vaccination [facility] Start: 02-11-2024 Influenza vaccination Influenza Vacc ine (#1) [facility] Comment on above: Postponed from 04/14 (Patient Refused) Start: 01-25-2024 End: 01-25-2024 Follow-up encounter 01/25/2024 9:00 AM EDT [facility] Neurosurgery [address] [place] [address] Claudio Michaels, TACKING MACHINE OPERATOR.GYROSCOPE REPAIRER [address] [id number] 1 year follow up Neurosurgery Comment on above: 1 year follow up Start: 10-15-2023 Screening for malign ant neoplasm of cervix [facility] Start: 09-20-2023 End: 09-20-2023 Patient encounter procedure 09/20/2023 3:40 PM EST Office Visit [facility] [address] [place] [id number] Christie Aldana, RENNY [address] [place] [id number] [facility] Start: 04-14-2023 Covid-19 Vaccine () Covid-19 Vaccine () [facility] Start: 04-14-2023 Influenza vaccination [facility] Start: 03-27-2023 Adult depression screening assessment DEPRESSION SCREENING [facility] Start: 01-24-2023 End: 03-26-2023 aPTT in Platelet poor plasma by Coagulation assay ACTIVATED PTT Lab Routine Preoperative examination Expected: 01/24/2023, Expires: 03/26/2023 [facility] Work Phone: Comment on above: Expected: 01/24/2023 , Expires: 03/26/2023 Start: 01-24-2023 End: 03-26-2023 CBC panel - Blood by Automated count CBC Lab Routine Preoperative examination Expected: 01/24/2023, Expires: 03/26/2023 [facility] Work Phone: Comment on above: Expected: 01/24/2023 , Expires: 03/26/2023 Start: 01-24-2023 End: 03-26-2023 Comprehensive metabolic 2000 panel - Serum or Plasma COMP METABOLIC PANEL Lab Routine Preoperative examination Expected: 01/24/2023, Expires: 03/26/2023 [facility] Work Phone: Comment on above: Expected: 01/24/2023 , Expires: 03/26/2023 Start: 01-24-2023 End: 08-13-2023 PT panel - Platelet poor plasma by Coagulation assay PROTHROMBIN TIME/PT Lab Routine Preoperative examination Expected: 01/24/2023, Expires: 03/26/2023 [facility] Work Phone: Comment on above: Expected: 01/24/2023 , Expires: 03/26/2023 Start: 01-24-2023 End: 07-09-2023 STAPH AUREUS PCR STAPH AUREUS PCR Lab Routine Preoperative examination Expected: 01/24/2023, Expires: 07/09/2023 [facility] Work Phone: Comment on above: Expected: 01/24/2023 , Expires: 07/09/2023 Start: 01-06-2023 End: 01-25-2024 US DVT UPPER LEFT US DVT UPPER LEFT Radiology Routine Acute deep vein thrombosis (DVT) of axillary vein of left upper extremity (HCC) Expected: 01/06/2023, Expires: 01/25/2024 [facility] Work Phone: Comment on above: Expected: 01/06/2023 , Expires: 01/25/2024 Start: 01-04-2023 End: 12-27-2023 US ARM VEIN DVT UNL VAS LAB US ARM VEIN DVT UNL VAS LAB Vascular Lab Routine Acute deep vein thrombosis (DVT) of brachial vein of left upper extremity (HCC) Expected: 01/04/2023, Expires: 12/27/2023 [facility] Work Phone: Comment on above: Expected: 01/04/2023 , Expires: 12/27/2023 Start: 12-28-2022 End: 12-27-2023 US ARM VEIN DVT UNL VAS LAB US ARM VEIN DVT UNL VAS LAB Vascular Lab Routine Acute deep vein thrombosis (DVT) of brachial vein of left upper extremity (HCC) Expected: 12/28/2022, Expires: 12/27/2023 [facility] Work Phone: Comment on above: Expected: 12/28/2022 , Expires: 12/27/2023 Start: 12-27-2022 End: 01-25-2024 US DVT UPPER LEFT US DVT UPPER LEFT Radiology Routine Acute deep vein thrombosis (DVT) of axillary vein of left upper extremity (HCC) Expected: 12/27/2022, Expires: 01/25/2024 [facility] Work Phone: Comment on above: Expected: 12/27/2022 , Expires: 01/25/2024 Start: 12-21-2022 Adult depression screening assessment DEPRESSION SCREENING [facility] Start: 11-22-2022 End: 01-22-2023 aPTT in Platelet poor plasma by Coagulation assay ACTIVATED PTT Lab Routine Preoperative testing Expected: 11/22/2022, Expires: 01/22/2023 [facility] Work Phone: Comment on above: Expected: 11/22/2022 , Expires: 01/22/2023 Start: 11-22-2022 End: 01-22-2023 CBC panel - Blood by Automated count CBC Lab Routine Preoperative testing Expected: 11/22/2022, Expires: 01/22/2023 [facility] Work Phone: Comment on above: Expected: 11/22/2022 , Expires: 01/22/2023 Start: 11-22-2022 End: 01-22-2023 Comprehensive metabolic 2000 panel - Serum or Plasma COMP METABOLIC PANEL Lab Routine Preoperative testing Expected: 11/22/2022, Expires: 01/22/2023 [facility] Work Phone: Comment on above: Expected: 11/22/2022 , Expires: 01/22/2023 Start: 11-22-2022 End: 01-22-2023 CONFIRM BLOOD TYPE CONFIRM BLOOD TYPE Blood Bank Routine Preoperative testing Expected: 11/22/2022, Expires: 01/22/2023 [facility] Work Phone: Comment on above: Expected: 11/22/2022 , Expires: 01/22/2023 Start: 11-22-2022 End: 11-18-2023 CTA HEAD W IVCON CTA HEAD W IVCON Radiology Routine Encounter for other preprocedural examination Partial symptomatic epilepsy with complex partial seizures, not intractable, without status epilepticus (HCC) Preoperative testing Expected: 11/22/2022, Expires: 11/18/2023 [facility] Work Phone: Comment on above: Expected: 11/22/2022 , Expires: 11/18/2023 Start: 11-22-2022 End: 01-22-2023 PT panel - Platelet poor plasma by Coagulation assay PROTHROMBIN TIME/PT Lab Routine Preoperative testing Expected: 11/22/2022, Expires: 01/22/2023 [facility] Work Phone: Comment on above: Expected: 11/22/2022 , Expires: 01/22/2023 Start: 11-22-2022 End: 04-17-2023 STAPH AUREUS PCR STAPH AUREUS PCR Lab Routine Preoperative testing Expected: 11/22/2022, Expires: 04/17/2023 [facility] Work Phone: Comment on above: Expected: 11/22/2022 , Expires: 04/17/2023 Start: 11-22-2022 End: 01-22-2023 TYPE AND SCREEN,30 DAY TYPE AND SCREEN,30 DAY Blood Bank Routine Preoperative testing Expected: 11/22/2022, Expires: 01/22/2023 [facility] Work Phone: Comment on above: Expected: 11/22/2022 , Expires: 01/22/2023 Start: 11-22-2022 End: 11-18-2023 Unlisted magnetic resonance procedure MRI BRAIN LOCALIZATION W IVCON Radiology Routine Encounter for other preprocedural examination Partial symptomatic epilepsy with complex partial seizures, not intractable, without status epilepticus (HCC) Preoperative testing Expected: 11/22/2022, Expires: 11/18/2023 [facility] Work Phone: Comment on above: Expected: 11/22/2022 , Expires: 11/18/2023 Start: 10-02-2022 CT of head without contrast CT head/brain wo con [facility] Start: 10-02-2022 CT Unspecified body region WO contrast [facility] Start: 10-02-2022 Bacteria identified in Urine by Culture [facility] Start: 09-29-2022 End: 11-29-2022 AUTOIMMUNE ENCEPHALOPATHY EVALUATION, SERUM AUTOIMMUNE ENCEPHALOPATHY EVALUATION, SERUM Lab Routine Partial symptomatic epilepsy with complex partial seizures, not intractable, without status epilepticus (HCC) Expected: 09/29/2022, Expires: 11/29/2022 [facility] Work Phone: Comment on above: Expected: 09/29/2022 , Expires: 11/29/2022 Start: 08-25-2022 Urine culture Urine Culture [facility] Start: 08-25-2022 Lamotrigine measurement [facility] Start: 07-15-2022 CT Abdomen and Pelvi s WO contrast [facility] Start: 07-15-2022 CT of abdomen and pe lvis without contrast CT abdomen pelvis wo con [facility] Start: 07-11-2022 End: 09-10-2022 CBC panel - Blood by Automated count CBC Lab Routine Partial symptomatic epilepsy with complex partial seizures, not intractable, without status epilepticus (HCC) Expected: 07/11/2022, Expires: 09/10/2022 [facility] Work Phone: Comment on above: Expected: 07/11/2022 , Expires: 09/10/2022 Start: 07-11-2022 End: 09-10-2022 Comprehensive metabolic 2000 panel - Serum or Plasma COMP METABOLIC PANEL Lab Routine Partial symptomatic epilepsy with complex partial seizures, not intractable, without status epilepticus (HCC) Expected: 07/11/2022, Expires: 09/10/2022 [facility] Work Phone: Comment on above: Expected: 07/11/2022 , Expires: 09/10/2022 Start: 07-11-2022 End: 09-10-2022 lamoTRIgine [Mass/volume] in Serum or Plasma LAMOTRIGINE Lab Routine Partial symptomatic epilepsy with complex partial seizures, not intractable, without status epilepticus (HCC) Expected: 07/11/2022, Expires: 09/10/2022 [facility] Work Phone: Comment on above: Expected: 07/11/2022 , Expires: 09/10/2022 Start: 04-14-2022 Influenza vaccination [facility] Start: 04-06-2022 End: 06-06-2022 lamoTRIgine [Mass/volume] in Serum or Plasma LAMOTRIGINE Lab Routine Partial symptomatic epilepsy with complex partial seizures, not intractable, without status epilepticus (HCC) Expected: 04/06/2022, Expires: 06/06/2022 [facility] Work Phone: Comment on above: Expected: 04/06/2022 , Expires: 06/06/2022 Start: 04-04-2022 End: 04-05-2022 Emergency department patient visit Departed Emergency [facility] Start: 02-10-2022 End: 04-12-2022 lamoTRIgine [Mass/volume] in Serum or Plasma LAMOTRIGINE Lab Routine Partial symptomatic epilepsy with complex partial seizures, not intractable, without status epilepticus (HCC) Expected: 02/10/2022, Expires: 04/12/2022 [facility] Work Phone: Comment on above: Expected: 02/10/2022 , Expires: 04/12/2022 Start: 2021 Urine microalbumin profile DTAP,TDAP,TD (1 - Tdap) [facility] Start: 08-14-2021 DEPRESSION ASSESSMENT DEPRESSION ASS ESSMENT [facility] Start: 12-23-2020 Meningococcal B Vacc ine: Consider Based On Risk (2 of 2 - Risk Bexsero 2-dose series) Meningococcal B Vaccine: Consider Based On Risk (2 of 2 - Risk Bexsero 2-dose series) [facility] Start: 12-23-2020 MENINGOCOCCAL B: Consider based on risk (2 of 2 - Risk Bexsero 2-dose series) MENINGOCOCCAL B: Consider based on risk (2 of 2 - Risk Bexsero 2-dose series) [facility] Start: 2020 CHLAMYDIA SCREENING (18-24) CHLAMYDIA SCREENING (18-24) [facility] Start: 2020 GC (GONORRHEA) SCREE GALINDO (18-24) GC (GONORRHEA) SCREENING (18-24) [facility] Start: 2020 HEPATITIS C SCREENING HEPATITIS C [facility] Start: 2020 Hepatitis C screening Hepatitis C [facility] Start: 03-03-2021 HIV SCREENING HIV SCREENING [facility] Start: 2020 HIV screening HIV Screening [facility] Start: 2020 Screening for Chlamy nova trachomatis Chlamydia Screening (18-24) [facility] Start: 2016 PEDS TO ADULT TRANSI TION ANNUAL ASSESSMENT PEDS TO ADULT TRANSITION ANNUAL ASSESSMENT [facility] Start: 2014 PEDS TO ADULT TRANSI TION INITIAL DISCUSSION PEDS TO ADULT TRANSITION INITIAL DISCUSSION [facility] Start: 2013 HPV VACCINE (1 - 2-d ose series) HPV VACCINE (1 - 2-dose series) [facility] Start: 2012 MENINGOCOCCAL B: Consider based on risk (1 of 2 - Risk Bexsero 2-dose series) MENINGOCOCCAL B: Consider based on risk (1 of 2 - Risk Bexsero 2-dose series) [facility] Start: 10-15-2007 COVID-19 VACCINE (#1) COVID-19 VACCI NE (#1) [facility] Start: 05-31-2004 HEPATITIS B (3 of 3 - 3-dose series) HEPATITIS B (3 of 3 - 3-dose series) [facility] Start: 04-16-2003 COVID-19 VACCINE (#1) COVID-19 VACCI NE (#1) [facility] Start: 2002 HEPATITIS B (1 of 3 - 3-dose series) HEPATITIS B (1 of 3 - 3-dose series) [facility] Bacteria identified in Urine by Culture [facility] End: 10-20-2023 ECG COMPLETE ECG COMPLETE ECG Routine Preoperative testing 1 Occurrences starting 10/19/2022 until 10/20/2023 [facility] Work Phone: Comment on above: 1 Occurrences starti ng 10/19/2022 until 10/20/2023 End: 10-22-2023 ECG COMPLETE ECG COMPLETE ECG Routine Pre-op evaluation 1 Occurrences starting 10/21/2022 until 10/22/2023 [facility] Work Phone: Comment on above: 1 Occurrences starti ng 10/21/2022 until 10/22/2023 End: 11-19-2022 EPIL EEG LONG EPIL EEG LONG NEUROLOGY Routine Convulsions, unspecified convulsion type (HCC) 1 Occurrences starting 11/19/2021 until 11/19/2022 [facility] Work Phone: Comment on above: 1 Occurrences starti ng 11/19/2021 until 11/19/2022 End: 09-09-2023 EPIL EEG W PROCEDURE EPIL EEG W PROCEDURE NEUROLOGY Routine Partial symptomatic epilepsy with complex partial seizures, not intractable, without status epilepticus (HCC) 1 Occurrences starting 09/09/2022 until 09/09/2023 [facility] Work Phone: Comment on above: 1 Occurrences starti ng 09/09/2022 until 09/09/2023 End: 01-22-2023 Mri brain brain stem w/o contrast material MRI BRAIN WO IVCON Radiology Routine Partial symptomatic epilepsy with complex partial seizures, not intractable, without status epilepticus (HCC) 1 Occurrences starting 12/22/2021 until 01/22/2023 [facility] Work Phone: Comment on above: 1 Occurrences starti ng 12/22/2021 until 01/22/2023 End: 10-29-2023 Mri brain brain stem w/o contrast material MRI BRAIN WO IVCON Radiology Routine Partial symptomatic epilepsy with complex partial seizures, not intractable, without status epilepticus (HCC) 1 Occurrences starting 09/29/2022 until 10/29/2023 [facility] Work Phone: Comment on above: 1 Occurrences starti ng 09/29/2022 until 10/29/2023 End: 04-08-2024 Mri brain brain stem w/o contrast material MRI BRAIN WO IVCON Radiology Routine Partial symptomatic epilepsy with complex partial seizures, not intractable, without status epilepticus (HCC) S/P brain surgery 1 Occurrences starting 03/10/2023 until 04/08/2024 [facility] Work Phone: Comment on above: 1 Occurrences starti ng 03/10/2023 until 04/08/2024 Patient Education [facility] Work Phone: Patient referral [facility] Work Phone: REFER FOR ADMIT INTERVIEW REFER FOR ADMIT INTERVIEW Procedures Routine Preoperative testing Ordered: 10/19/2022 [facility] Work Phone: Comment on above: Ordered: 10/19/2022 REFER FOR ADMIT INTERVIEW REFER FOR ADMIT INTERVIEW Procedures Routine Preoperative examination Ordered: 01/10/2023 [facility] Work Phone: Comment on above: Ordered: 01/10/2023 [facility] CULTURE URINE [facility] CULTURE UR INE Lab Routine 09/14/2023 8:59 PM [facility] End: 02-09-2024 Unlisted magnetic resonance procedure MRI BRAIN LOCALIZATION WO IVCON Radiology Routine Encounter for other preprocedural examination Partial symptomatic epilepsy with complex partial seizures, not intractable, without status epilepticus (HCC) Preoperative examination 1 Occurrences starting 01/10/2023 until 02/09/2024 [facility] Work Phone: Comment on above: 1 Occurrences starti ng 01/10/2023 until 02/09/2024 End: 02-23-2025 XR Skull AP and Lateral XR SKULL 2V AP/LAT Radiology Routine Partial symptomatic epilepsy with complex partial seizures, not intractable, without status epilepticus (HCC) S/P brain surgery 1 Occurrences starting 01/25/2024 until 02/23/2025 [facility] Work Phone: Comment on above: 1 Occurrences starti ng 01/25/2024 until 02/23/2025 [facility] Immunizations Immunization Date Immunization Notes Care Provider [facility] 02-17-2021 Human Papillomavirus 9-valent vaccine Tomas Morrison MD Work Phone: [facility] 11-25-2020 Human Papillomavirus 9-valent vaccine Tomas Morrison MD Work Phone: [facility] 11-25-2020 meningococcal B vacc ine, recombinant, OMV, adjuvanted Tomas Morrison MD Work Phone: [facility] 05-08-2020 meningococcal polysaccharide (groups A, C, Y and W-135) diphtheria toxoid conjugate vaccine (MCV4P) Tomas Morrison MD Work Phone: [facility] 02-23-2018 human papilloma viru s vaccine, quadrivalent Tomas Morrison MD Work Phone: [facility] 02-23-2018 meningococcal polysaccharide (groups A, C, Y and W-135) diphtheria toxoid conjugate vaccine (MCV4P) Tomas Morrison MD Work Phone: [facility] 04-10-2015 tetanus toxoid, redu siri diphtheria toxoid, and acellular pertussis vaccine, adsorbed Tomas Morrison MD Work Phone: [facility] 05-01-2008 diphtheria, tetanus toxoids and acellular pertussis vaccine Tomas Morrison MD Work Phone: [facility] 05-01-2008 measles, mumps and rubella virus vaccine Tomas Morrison MD Work Phone: [facility] 05-01-2008 varicella virus vaccine Laura Morrison MD Work Phone: [facility] 12-12-2005 diphtheria, tetanus toxoids and acellular pertussis vaccine Tomas Morrison MD Work Phone: [facility] 12-12-2005 pneumococcal conjuga te vaccine, 7 valent Tomas Morrison MD Work Phone: [facility] 12-12-2005 poliovirus vaccine, inactivated Tomas Morrison MD Work Phone: [facility] 06-17-2004 diphtheria, tetanus toxoids and acellular pertussis vaccine Tomas Morrison MD Work Phone: [facility] 06-17-2004 pneumococcal conjuga te vaccine, 7 valent Tomas Morrison MD Work Phone: [facility] 06-17-2004 poliovirus vaccine, inactivated Tomas Morrison MD Work Phone: [facility] [facility] diphtheria, tetanus toxoids and acellular pertussis vaccine Tomas Morrison MD Work Phone: [facility] 04-05-2004 haemophilus influenz ae type b conjugate and Hepatitis B vaccine Tomas Morrison MD Work Phone: [facility] 04-05-2004 pneumococcal conjuga te vaccine, 7 valent Tomas Morrison MD Work Phone: [facility] 04-05-2004 poliovirus vaccine, inactivated Tomas Morrison MD Work Phone: [facility] 04-05-2004 hepatitis B vaccine, unspecified formulation Tomas Morrison MD Work Phone: [facility] 12-03-2003 diphtheria, tetanus toxoids and acellular pertussis vaccine Tomas Morrison MD Work Phone: [facility] 12-03-2003 haemophilus influenz ae type b conjugate and Hepatitis B vaccine Tomas Morrison MD Work Phone: [facility] 12-03-2003 measles, mumps and rubella virus vaccine Tomas Morrison MD Work Phone: [facility] 12-03-2003 pneumococcal conjuga te vaccine, 7 valent Tomas Morrison MD Work Phone: [facility] 12-03-2003 poliovirus vaccine, inactivated Tomas Morrison MD Work Phone: [facility] 12-03-2003 varicella virus vaccine Laura Morrison MD Work Phone: [facility] 2002 hepatitis B vaccine, pediatric or pediatric/adolescent dosage Generic Provider [facility] Payers Date Payer Category Payer Self-pay [id number] 2023 Unknown [id number] 2023 Medicaid [id number] 2023 Medicaid [id number] 2020 Private Health Insurance 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 [id number] 2020 Unknown [id number]. 1.13.159.2. [id number] 2020 Unknown [id number] 2016 Unknown [employer] BLUE CARD PPO OOS [id number] 2016-Present [phone] [address] [place] [address] PPO [id number]. [id number] 2002 Unknown [id number] 2.16.840.1.859522.3.579.2. 1259 2002 Unknown [id number] 2.16.840.1.458975.3.579.2. 1259 2002 Unknown [id number] 2.16.840.1.611642.3.579.2. 1259 2002 Unknown [id number] 2.16.840.1.600689.3.579.2. 1259 2002 Unknown [id number] 2.16.840.1.245483.3.579.2. 1259 2002 Unknown [id number] 2.16.840.1.166982.3.579.2. 1259 2002 Unknown [id number] 2.16.840.1.049798.3.579.2. 727 2002 Unknown [id number] 2.16.840.1.086640.3.579.2. 727 2002 Unknown [id number] 2.16.840.1.686453.3.579.2. 727 2002 Unknown [id number] 2.16.840.1.951985.3.579.2. 727 2002 Unknown [id number] 2.16.840.1.836615.3.579.2. 727 2002 Unknown [id number] 2.16.840.1.732751.3.579.2. 727 Medicaid [employer] [id number] Unknown [place] BC/BS [id number] Unknown Regular Auto/Medical [id number] Unknown [id number] 2.16.840.1.516155.3.579.2. 531 Unknown [id number] 2.840.1.764343.3.579.2. 531 Social History Date Type Detail Facility Start: 10-19-2016 End: 10-12-2022 Tobacco smoking status NHIS Never smoked tobacco [facility] Start: 10-22-2016 End: 07-11-2022 Alcohol intake Current non-drinker of alcohol (finding) [facility] Start: 2002 [facility] Assigned At [facility] Start: 10-19-2016 End: 06-30-2023 Tobacco use and exposure Smokeless tobacco non-user [facility] Start: 2002 [facility] Start: 12-12-2021 End: 04-07-2022 Exposure to SARS-CoV-2 (event) Not sure [facility] Start: 10-03-2022 History SDOH Financial 5 [facility] Start: 10-03-2022 End: 01-27-2023 History SDOH Food Worry 1 [facility] Start: 10-03-2022 End: 01-27-2023 History SDOH Transport Med 2 [facility] Start: 01-24-2023 End: 07-31-2024 Alcohol intake Current drinker of alcohol (finding) [facility] Start: 01-24-2023 Alcohol Comment Once every 3 m onths per pt 01/24/2023 [facility] Start: 01-27-2023 History SDOH Financial 4 [facility] Start: 01-24-2023 End: 06-27-2023 History of Social function [facility] Start: 01-24-2023 End: 06-27-2023 Tobacco use panel [facility] How hard is it for y ou to pay for the very basics like food, housing, medical care, and heating Not very hard [facility] Adult Depression Screening Assessment 0 [facility] (I/We) worried treasure er (my/our) food would run out before (I/we) got money to buy more. Never true [facility] In the past 12 month s, was there a time when you were not able to pay the mortgage or rent on time? No [facility] Start: 12-21-2021 Gender identity Identifies as female gender (finding) [facility] Start: 12-21-2021 Sexual orientation Heterosexual (sarah singer) [facility] Start: 07-11-2023 End: 07-11-2023 Tobacco smoking status NHIS Smoker (finding) [facility] Start: 06-30-2023 Tobacco smoking stat us NHIS Occasional tobacco smoker [facility] History of [...] smoking status No Smokin g Status Entered [facility] Start: 08-06-2024 Tobacco smoking status Heavy t obacco smoker (finding) [facility] Comment on above: quit when found out Medical Equipment Procedure Code Equipment Code Equipment Origin al Text Equipment Identifier Dates Depth Electrode Grahn Harrison Sd Green 2.5mm X 21mm [id number] Start: 12-01-2022 Electrode Depth 12 Contact 5 [id number] Start: 12-01-2022 Patch Duramatrix -Onlay Plus Collagen 5x4in Dural Regeneration Membrane - [id number] Start: 01-26-2023 Cover 10mm Mediu m Titanium [place] Low Profile Tab 1.5mm Screws - [id number] Start: 01-26-2023 Screw Bone Unive rsal Neuro 3 4mm 1.5mm Self Drill Axial Stability Latex - [id number] Start: 01-26-2023 Depth Electrode Harrison Anchors 2.5mm X 13mm [id number] Start: 12-01-2022 Depth Electrode Harrison Anchors 2.5mm X 13mm [id number] Start: 12-01-2022 Depth Electrode Harrison Anchors 2.5mm X 13mm [id number] Start: 12-01-2022 Depth Electrode Harrison Anchors 2.5mm X 13mm [id number] Start: 12-01-2022 Depth Electrode Harrison Anchors 2.5mm X 13mm [id number] Start: 12-01-2022 Depth Electrode Harrison Anchors 2.5mm X 13mm [id number] Start: 12-01-2022 Depth Electrode Harrison Anchors 2.5mm X 13mm [id number] Start: 12-01-2022 Depth Electrode Harrison Anchors 2.5mm X 13mm [id number] Start: 12-01-2022 Depth Electrode Harrison Anchors 2.5mm X 13mm [id number] Start: 12-01-2022 Depth Electrode Grahn Harrison Sd Green 2.5mm X 21mm [id number] Start: 12-01-2022 Depth Electrode Harrison Anchors 2.5mm X 13mm [id number] Start: 12-01-2022 Depth Electrode Harrison Anchors 2.5mm X 13mm [id number] Start: 12-01-2022 Depth Electrode Harrison Anchors 2.5mm X 13mm [id number] Start: 12-01-2022 Depth Electrode Harrison Anchors 2.5mm X 13mm [id number] Start: 12-01-2022 Electrode Depth 10 Contact 5 [id number] Start: 12-01-2022 Depth Electrode Harrison Anchors 2.5mm X 13mm [id number] Start: 12-01-2022 Depth Electrode Harrison Anchors 2.5mm X 13mm [id number] Start: 12-01-2022 Electrode Depth 12 Contact 5 [id number] Start: 12-01-2022 Elctrd Spc Dpth 8 Contct 5 [id number] Start: 12-01-2022 Elctrd Spc Dpth 8 Contct 5 [id number] Start: 12-01-2022 Electrode Depth 12 Contact 5 [id number] Start: 12-01-2022 Elctrd Spc Dpth 8 Contct 5 [id number] Start: 12-01-2022 Depth Electrode Grahn Harrison Sd Green 2.5mm X 21mm [id number] Start: 12-01-2022 Elctrd Spc Dpth 8 Contct 5 [id number] Start: 12-01-2022 Depth Electrode Harrison Anchors 2.5mm X 13mm [id number] Start: 12-01-2022 [...] 12-01-2022 Cover 14mm Low P rofile Titanium [place] Tab 1.5mm Screw Nonsterile - [id number] Start: 01-26-2023 Cover 14mm Low P rofile Titanium [place] Tab 1.5mm Screw Nonsterile - [id number] Start: 01-26-2023 Cover 14mm Low P rofile Titanium [place] Tab 1.5mm Screw Nonsterile - [id number] Start: 01-26-2023 Functional Status Date Assessment Result Facility 08-06-2024 Functional Status N/A [facility] Clinical Notes 11-18-2021 to 08-06-2024 Note Date & Type Note Facility 08-06-2024 Evaluation + Plan note Extrac deni from: Title:ED Note Author:Ulises Philip DO Date: Pelvic and perineal pain (R1 0.2: Pelvic and perineal pain) Pelvic pain in (O26.899: Other specified related conditions, unspecified trimester) UTI (urinary tract infection) (N39.0: Urinary tract infection, site not specified) Vomiting (R11.10: Vomiting, unspecified) Orders: cephalexin, 500 mg = 1 cap(s), Oral, q12hr, X 7 day(s), # 14 cap(s), Refills(s) 0 ondansetron, 4 mg = 1 tab(s), Oral, q6hr, PRN Nausea, Take one tab by mouth every six hours as needed for nausea, # 10 tab(s), Refills(s) 0 ondansetron, 4 mg = 1 tab(s), Tab-Dis, Oral, Once, Stop date 08/06/24 9:32:00 EST, STAT, Start date 08/06/24 9:32:00 EST, 08/06/24 9:32:00 EST BB Draw & Hold Beta hCG Quantitative Extra Blue Tube Extra Lav Tube Extra SST Tube UA with Cult Rflx Urine Culture US 1st Trimester US Transvaginal Diagnostic Tests Pending * Urine Culture 08/06/24 [facility] [id number] Hospital Discharge instructions Patient Education 08/06/2024 11:11:36 and Urinary Tract Infection and Urinary Tract Infection A urinary tract infection (UTI) is an infection of any part of the urinary tract. This includes thekidneys, the tubes that connect the kidneys to the bladder (ureters), the bladder, and the tube that carries urine out of the body (urethra). These organs make, store, and get rid of urine in the body. Your health care provider may use other names to describe the infection. An upper UTI affects theureters and kidneys (pyelonephritis). A lower UTI affects the bladder (cystitis) and urethra (urethritis). Most UTIs are caused by bacteria in the genital area, around the entrance to the urinary tract. These bacteria grow and cause irritation and inflammation of the urinary tract. You are more likely to develop a UTI during because: The physical and hormonal changes that your body goes through make it easier for bacteria to get into your urinary tract. Your growing baby puts pressure on your bladder and can affect urine flow. women with diabetes are at an increased risk for developing a UTI. It is important to recognize and treat UTIs in because they can cause serious complications for both you and yourbaby. How does this affect me? Symptoms of a UTI include: Needing to urinate right away (urgently) and often, even if urinating a small amount. Pain, burning, or having a hard time passing urine. Blood in the urine. Unusual, cloudy, and bad-smelling urine. Pain in the abdomen or lower back. Vaginal discharge. You may also have: Vomiting or a decreased appetite. Confusion. Irritability or tiredness. A fever. Diarrhea. A low level of red blood cells (anemia). The development of high blood pressure during (preeclampsia). How does this affect my baby? An untreated UTI during could lead to a kidney infection or an infection throughout the mother's body (systemic infection). This can cause health problems and affect the baby. Possible complications of an untreated UTI include: Your baby being born before 37 weeks of (premature). Your baby being born with a low weight. Your baby having a higher risk of having his or her skin or the white parts of the eyes turn yellow(jaundice). What can I do to lower my risk? To prevent a UTI: Do not hold urine for long periods of time. Empty your bladder as soon as you feel the urge. Always wipe from front to back, especially after a bowel movement. Use each tissue one time when you wipe. Empty your bladder after sex. Keep your genital area dry. Drink 6 to 8 glasses of water each day. Do not douche or use deodorant sprays. Wear cotton underwear and loose clothing. How is this treated? Treatment for this condition may include: Antibiotic medicines that are safe to take during . Other medicines to treat less common causes of UTI. Follow these instructions at home: If you were prescribed an antibiotic medicine, take it as told by your health care provider. Do notstop using the antibiotic even if you start to feel better. Keep all follow-up visits. This is important. Contact a health care provider if: Your symptoms do not improve or they get worse. You have abnormal vaginal discharge. Get help right away if you: Have a fever. Have nausea and vomiting. Have back or side pain. Have lower belly pain, tightness, or feel contractions in your uterus. Have a gush of fluid from your vagina. Have blood in your urine. Summary A UTI is an infection of any part of the urinary tract, which includes the kidneys, ureters, bladder, and urethra. Most urinary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 Federal Confidentiality of Alcohol and Drug Abuse Patient Records regulations: The Federal rules restrict any use of the information to criminally investigate or prosecute any alcohol or drug abuse patient.[facility] the event this information is protected by the Federal Confidentiality of Alcohol and Drug Abuse Patient Records regulations: The Federal rules restrict any use of the information to criminally investigate or prosecute any alcohol or drug abuse patient.[facility] the event this information is protected by the Federal Confidentiality of Alcohol and Drug Abuse Patient Records regulations: The Federal rules restrict any use of the information to criminally investigate or prosecute any alcohol or drug abuse patient.[facility] the event this information is protected by the Federal Confidentiality of Alcohol and Drug Abuse Patient Records regulations: The Federal rules restrict any use of the information to criminally investigate or prosecute any alcohol or drug abuse patient.[facility]In the event this information is protected by the Federal Confidentiality of Alcohol and Drug Abuse Patient Records regulations: The Federal rules restrict any use of the information to criminally investigate or prosecute any alcohol or drug abuse patient.[facility] the event this information is protected by the Federal Confidentiality of Alcohol and Drug Abuse Patient Records regulations: The Federal rules restrict any use of the information to criminally investigate or prosecute any alcohol or drug abuse patient.[facility] the event this information is protected by the Federal Confidentiality of Alcohol and Drug Abuse Patient Records regulations: The Federal rules restrict any use of the information to criminally investigate or prosecute any alcohol or drug abuse patient.[facility]In the event this information is protected by the Federal Confidentiality of Alcohol and Drug Abuse Patient Records regulations: The Federal rules restrict any use of the information to criminally investigate or prosecute any alcohol or drug abuse patient.[facility]In the event this information is protected by the Federal Confidentiality of Alcohol and Drug Abuse Patient Records regulations: The Federal rules restrict any use of the information to criminally investigate or prosecute any alcohol or drug abuse patient.[facility] CenterIn the event this information is protected by the Federal Confidentiality of Alcohol and Drug Abuse Patient Records regulations: The Federal rules restrict any use of the information to criminally investigate or prosecute any alcohol or drug abuse patient.[facility] the event this information is protected by the Federal Confidentiality of Alcohol and Drug Abuse Patient Records regulations: The Federal rules restrict any use of the information to criminally investigate or prosecute any alcohol or drug abuse patient.[facility] Center[facility] the event this information is protected by the Federal Confidentiality of Alcohol and Drug Abuse Patient Records regulations: The Federal rules restrict any use of the information to criminally investigate or prosecute any alcohol or drug abuse patient.[facility] CenterIn the event this information is protected by the Federal Confidentiality of Alcohol and Drug Abuse Patient Records regulations: The Federal rules restrict any use of the information to criminally investigate or prosecute any alcohol or drug abuse patient.[facility] CenterIn the event this information is protected by the Federal Confidentiality of Alcohol and Drug Abuse Patient Records regulations: The Federal rules restrict any use of the information to criminally investigate or prosecute any alcohol or drug abuse patient.[facility] CenterIn the event this information is protected by the Federal Confidentiality of Alcohol and Drug Abuse Patient Records regulations: The Federal rules restrict any use of the information to criminally investigate or prosecute any alcohol or drug abuse patient.[facility] CenterIn the event this information is protected by the Federal Confidentiality of Alcohol and Drug Abuse Patient Records regulations: The Federal rules restrict any use of the information to criminally investigate or prosecute any alcohol or drug abuse patient.[facility] CenterIn the event this information is protected by the Federal Confidentiality of Alcohol and Drug Abuse Patient Records regulations: The Federal rules restrict any use of the information to criminally investigate or prosecute any alcohol or drug abuse patient.[facility] CenterIn the event this information is protected by the Federal Confidentiality of Alcohol and Drug Abuse Patient Records regulations: The Federal rules restrict any use of the information to criminally investigate or prosecute any alcohol or drug abuse patient.[facility] CenterIn the event this information is protected by the Federal Confidentiality of Alcohol and Drug Abuse Patient Records regulations: The Federal rules restrict any use of the information to criminally investigate or prosecute any alcohol or drug abuse patient.[facility] CenterIn the event this information is protected by the Federal Confidentiality of Alcohol and Drug Abuse Patient Records regulations: The Federal rules restrict any use of the information to criminally investigate or prosecute any alcohol or drug abuse patient.[facility] CenterIn the event this information is protected by the Federal Confidentiality of Alcohol and Drug Abuse Patient Records regulations: The Federal rules restrict any use of the information to criminally investigate or prosecute any alcohol or drug abuse patient.[facility] CenterIn the event this information is protected by the Federal Confidentiality of Alcohol and Drug Abuse Patient Records regulations: The Federal rules restrict any use of the information to criminally investigate or prosecute any alcohol or drug abuse patient.[facility] CenterIn the event this information is protected by the Federal Confidentiality of Alcohol and Drug Abuse Patient Records regulations: The Federal rules restrict any use of the information to criminally investigate or prosecute any alcohol or drug abuse patient.[facility] CenterIn the event this information is protected by the Federal Confidentiality of Alcohol and Drug Abuse Patient Records regulations: The Federal rules restrict any use of the information to criminally investigate or prosecute any alcohol or drug abuse patient.[facility] CenterIn the event this information is protected by the Federal Confidentiality of Alcohol and Drug Abuse Patient Records regulations: The Federal rules restrict any use of the information to criminally investigate or prosecute any alcohol or drug abuse patient.[facility] CenterIn the event this information is protected by the Federal Confidentiality of Alcohol and Drug Abuse Patient Records regulations: The Federal rules restrict any use of the information to criminally investigate or prosecute any alcohol or drug abuse patient.[facility] CenterIn the event this information is protected by the Federal Confidentiality of Alcohol and Drug Abuse Patient Records regulations: The Federal rules restrict any use of the information to criminally investigate or prosecute any alcohol or drug abuse patient.[facility] CenterIn the event this information is protected by the Federal Confidentiality of Alcohol and Drug Abuse Patient Records regulations: The Federal rules restrict any use of the information to criminally investigate or prosecute any alcohol or drug abuse patient.[facility] CenterIn the event this information is protected by the Federal Confidentiality of Alcohol and Drug Abuse Patient Records regulations: The Federal rules restrict any use of the information to criminally investigate or prosecute any alcohol or drug abuse patient.[facility] CenterIn the event this information is protected by the Federal Confidentiality of Alcohol and Drug Abuse Patient Records regulations: The Federal rules restrict any use of the information to criminally investigate or prosecute any alcohol or drug abuse patient.[facility] CenterIn the event this information is protected by the Federal Confidentiality of Alcohol and Drug Abuse Patient Records regulations: The Federal rules restrict any use of the information to criminally investigate or prosecute any alcohol or drug abuse patient.[facility] CenterIn the event this information is protected by the Federal Confidentiality of Alcohol and Drug Abuse Patient Records regulations: The Federal rules restrict any use of the information to criminally investigate or prosecute any alcohol or drug abuse patient.[facility] CenterIn the event this information is protected by the Federal Confidentiality of Alcohol and Drug Abuse Patient Records regulations: The Federal rules restrict any use of the information to criminally investigate or prosecute any alcohol or drug abuse patient.[facility] CenterIn the event this information is protected by the Federal Confidentiality of Alcohol and Drug Abuse Patient Records regulations: The Federal rules restrict any use of the information to criminally investigate or prosecute any alcohol or drug abuse patient.[facility] CenterIn the event this information is protected by the Federal Confidentiality of Alcohol and Drug Abuse Patient Records regulations: The Federal rules restrict any use of the information to criminally investigate or prosecute any alcohol or drug abuse patient.[facility] CenterIn the event this information is protected by the Federal Confidentiality of Alcohol and Drug Abuse Patient Records regulations: The Federal rules restrict any use of the information to criminally investigate or prosecute any alcohol or drug abuse patient.[facility] CenterIn the event this information is protected by the Federal Confidentiality of Alcohol and Drug Abuse Patient Records regulations: The Federal rules restrict any use of the information to criminally investigate or prosecute any alcohol or drug abuse patient.[facility] CenterIn the event this information is protected by the Federal Confidentiality of Alcohol and Drug Abuse Patient Records regulations: The Federal rules restrict any use of the information to criminally investigate or prosecute any alcohol or drug abuse patient.[facility] CenterIn the event this information is protected by the Federal Confidentiality of Alcohol and Drug Abuse Patient Records regulations: The Federal rules restrict any use of the information to criminally investigate or prosecute any alcohol or drug abuse patient.[facility] CenterIn the event this information is protected by the Federal Confidentiality of Alcohol and Drug Abuse Patient Records regulations: The Federal rules restrict any use of the information to criminally investigate or prosecute any alcohol or drug abuse patient.[facility] CenterIn the event this information is protected by the Federal Confidentiality of Alcohol and Drug Abuse Patient Records regulations: The Federal rules restrict any use of the information to criminally investigate or prosecute any alcohol or drug abuse patient.[facility] CenterIn the event this information is protected by the Federal Confidentiality of Alcohol and Drug Abuse Patient Records regulations: The Federal rules restrict any use of the information to criminally investigate or prosecute any alcohol or drug abuse patient.[facility] CenterIn the event this information is protected by the Federal Confidentiality of Alcohol and Drug Abuse Patient Records regulations: The Federal rules restrict any use of the information to criminally investigate or prosecute any alcohol or drug abuse patient.[facility] CenterIn the event this information is protected by the Federal Confidentiality of Alcohol and Drug Abuse Patient Records regulations: The Federal rules restrict any use of the information to criminally investigate or prosecute any alcohol or drug abuse patient.[facility] CenterIn the event this information is protected by the Federal Confidentiality of Alcohol and Drug Abuse Patient Records regulations: The Federal rules restrict any use of the information to criminally investigate or prosecute any alcohol or drug abuse patient.[facility] CenterIn the event this information is protected by the Federal Confidentiality of Alcohol and Drug Abuse Patient Records regulations: The Federal rules restrict any use of the information to criminally investigate or prosecute any alcohol or drug abuse patient.[facility] CenterIn the event this information is protected by the Federal Confidentiality of Alcohol and Drug Abuse Patient Records regulations: The Federal rules restrict any use of the information to criminally investigate or prosecute any alcohol or drug abuse patient.[facility] CenterIn the event this information is protected by the Federal Confidentiality of Alcohol and Drug Abuse Patient Records regulations: The Federal rules restrict any use of the information to criminally investigate or prosecute any alcohol or drug abuse patient.[facility] CenterIn the event this information is protected by the Federal Confidentiality of Alcohol and Drug Abuse Patient Records regulations: The Federal rules restrict any use of the information to criminally investigate or prosecute any alcohol or drug abuse patient.[facility] CenterIn the event this information is protected by the Federal Confidentiality of Alcohol and Drug Abuse Patient Records regulations: The Federal rules restrict any use of the information to criminally investigate or prosecute any alcohol or drug abuse patient.[facility] CenterIn the event this information is protected by the Federal Confidentiality of Alcohol and Drug Abuse Patient Records regulations: The Federal rules restrict any use of the information to criminally investigate or prosecute any alcohol or drug abuse patient.[facility] CenterIn the event this information is protected by the Federal Confidentiality of Alcohol and Drug Abuse Patient Records regulations: The Federal rules restrict any use of the information to criminally investigate or prosecute any alcohol or drug abuse patient.[facility] CenterIn the event this information is protected by the Federal Confidentiality of Alcohol and Drug Abuse Patient Records regulations: The Federal rules restrict any use of the information to criminally investigate or prosecute any alcohol or drug abuse patient.[facility] CenterIn the event this information is protected by the Federal Confidentiality of Alcohol and Drug Abuse Patient Records regulations: The Federal rules restrict any use of the information to criminally investigate or prosecute any alcohol or drug abuse patient.[facility] CenterIn the event this information is protected by the Federal Confidentiality of Alcohol and Drug Abuse Patient Records regulations: The Federal rules restrict any use of the information to criminally investigate or prosecute any alcohol or drug abuse patient.[facility] CenterIn the event this information is protected by the Federal Confidentiality of Alcohol and Drug Abuse Patient Records regulations: The Federal rules restrict any use of the information to criminally investigate or prosecute any alcohol or drug abuse patient.[facility] CenterIn the event this information is protected by the Federal Confidentiality of Alcohol and Drug Abuse Patient Records regulations: The Federal rules restrict any use of the information to criminally investigate or prosecute any alcohol or drug abuse patient.[facility] CenterIn the event this information is protected by the Federal Confidentiality of Alcohol and Drug Abuse Patient Records regulations: The Federal rules restrict any use of the information to criminally investigate or prosecute any alcohol or drug abuse patient.[facility] CenterIn the event this information is protected by the Federal Confidentiality of Alcohol and Drug Abuse Patient Records regulations: The Federal rules restrict any use of the information to criminally investigate or prosecute any alcohol or drug abuse patient.[facility] CenterIn the event this information is protected by the Federal Confidentiality of Alcohol and Drug Abuse Patient Records regulations: The Federal rules restrict any use of the information to criminally investigate or prosecute any alcohol or drug abuse patient.[facility] the event this information is protected by the Federal Confidentiality of Alcohol and Drug Abuse Patient Records regulations: The Federal rules restrict any use of the information to criminally investigate or prosecute any alcohol or drug abuse patient.[facility] CenterIn the event this information is protected by the Federal Confidentiality of Alcohol and Drug Abuse Patient Records regulations: The Federal rules restrict any use of the information to criminally investigate or prosecute any alcohol or drug abuse patient.[facility] CenterIn the event this information is protected by the Federal Confidentiality of Alcohol and Drug Abuse Patient Records regulations: The Federal rules restrict any use of the information to criminally investigate or prosecute any alcohol or drug abuse patient.[facility] CenterIn the event this information is protected by the Federal Confidentiality of Alcohol and Drug Abuse Patient Records regulations: The Federal rules restrict any use of the information to criminally investigate or prosecute any alcohol or drug abuse patient.[facility] Care Teams (unrecognized sec tion and content) Team Status: Active Member Role Status Dates Reim Andrew MD Primary Care Provider Active Team Status: Inactive Member Role Status Dates Remi Andrew MD Primary Care Provider Active Feng Barlow PA-C Emergency Provider Active [employer] Attendant Relationship Specialty Start Date End Date Remi Andrew MD [address] [place] [address] PCP - General Family Practice 10/19/16 [employer] Attendant Relationship Specialty Start Date End Date Remi Andrew MD [address] [place] [address] PCP - General Family Practice 10/19/16 [employer] Attendant Relationship Specialty Start Date End Date Remi Andrew MD [address] [place] [address] PCP - General Family Practice 10/19/16 [employer] Attendant Relationship Specialty Start Date End Date Remi Andrew MD [address] [place] [address] PCP - General Family Practice 10/19/16 [employer] Attendant Relationship Specialty Start Date End Date Remi Andrew MD [address] [place] [address] PCP - General Family Practice 10/19/16 [employer] Ramp Attendant Relationship Specialty Start Date End Date Remi Andrew MD [address] [place] [address] PCP - General Family Practice 10/19/16 [employer] Ramp Attendant Relationship Specialty Start Date End Date Remi Andrew MD [address] [place] [address] PCP - General Family Practice 10/19/16 [employer] R[employer] Attendant Relationship Specialty Start Date End Date Remi Andrew MD [address] [place] [address] PCP - [facility] Practice 10/19/16 [employer] Ramp Attendant Relationship Specialty Start Date End Date Remi Andrew MD [address] [place] [phone] PCP - [facility] Practice 10/19/16 [employer] Ramp Attendant Relationship Specialty Start Date End Date Remi Andrew MD [address] [place] [phone] PCP - [facility] Practice 10/19/16 Team Status: Inactive Member Role Status Dates Remi Andrew MD Primary Care Provider Active Kristine Welsh , [facility] Emergency Provider Active Gonzales Mayes DO [...] Active Brando Guy DO Emergency Provider Active [employer] Attendant Relationship Specialty Start Date End Date Remi Andrew MD [address] [place] [phone] PCP - General Family Practice 10/19/16 [employer] Attendant Relationship Specialty Start Date End Date Remi Andrew MD [address] [place] [address] PCP - General Family Medicine 10/19/16 [employer] Attendant Relationship Specialty Start Date End Date Remi Andrew MD [address] [place] [address] PCP - General Family Medicine 10/19/16 [employer] Attendant Relationship Specialty Start Date End Date Remi Andrew MD [address] [place] [address] PCP - General Family Medicine 10/19/16 Team Status: Inactive Member Role Status Dates Remi Andrew MD Primary Care Provider Active Sedrick Pina Jr, MD Emergency Provider Active Team Status: Inactive Member Role Status Dates Remi Andrew MD Primary Care Provider Active Madiha Funk PA-C Emergency Provider Active [employer] Attendant Relationship Specialty Start Date End Date Remi Andrew MD [address] [place] [address] PCP - General Family Medicine 10/19/16 [employer] Attendant Relationship Specialty Start Date End Date Remi Andrew MD [address] [place] [address] PCP - General Family Medicine 10/19/16 [employer] Attendant Relationship Specialty Start Date End Date Remi Andrew MD [address] [place] [address] PCP - General Family Medicine 10/19/16 [employer] Ramp Attendant Relationship Specialty Start Date End Date Remi Andrew MD [address] [place] [address] PCP - General Family Medicine 10/19/16 [employer] Ramp Attendant Relationship Specialty Start Date End Date Remi Andrew MD [address] [place] [address] PCP - General Family Medicine 10/19/16 [employer] Ramp Attendant Relationship Specialty Start Date End Date Remi Adnrew MD [address] [place] [address] PCP - General Family Medicine 10/19/16 [employer] Ramp Attendant Relationship Specialty Start Date End Date Remi Andrew MD [address] [place] [address] PCP - General Family Medicine 10/19/16 [employer] Ramp Attendant Relationship Specialty Start Date End Date Remi Andrew MD [address] [place] [address] PCP - General Family Medicine 10/19/16 Team Status: Inactive Member Role Status Dates Remi Andrew MD Primary Care Provider Active Shashi Ornelas DO Emergency Provider Active [employer] Attendant Relationship Specialty Start Date End Date Remi Andrew MD [address] [place] [phone] PCP - General Family Medicine 10/19/16 [employer] Ramp Attendant Relationship Specialty Start Date End Date Remi Andrew MD [address] [place] [phone] PCP - General Family Medicine 10/19/16 Airport Ramp Attendant Relationship Specialty Start Date End Date Remi Andrew MD [address] [place] [address] PCP - General Family Medicine 10/19/16 Airport Ramp Attendant Relationship Specialty Start Date End Date Remi Andrew MD [address] [place] [address] PCP - General Family Medicine 10/19/16 Airport Ramp Attendant Relationship Specialty Start Date End Date Remi Andrew MD [address] [place] [address] PCP - General Family Medicine 10/19/16 [employer] Ramp Attendant Relationship Specialty Start Date End Date Remi Andrew MD [address] [place] [address] PCP - General Family Medicine 10/19/16 [employer] Ramp Attendant Relationship Specialty Start Date End Date Remi Andrew MD [address] [place] [address] PCP - General Family Medicine 10/19/16 Airport Ramp Attendant Relationship Specialty Start Date End Date Remi Andrew MD [address] [place] [address] PCP - General Family Medicine 10/19/16 Airport Ramp Attendant Relationship Specialty Start Date End Date Remi Andrew MD [address] [place] [address] PCP - General Family Medicine 10/19/16 [employer] Ramp Attendant Relationship Specialty Start Date End Date Remi Andrew MD [address] [place] [address] PCP - General Family Medicine 10/19/16 Airport Ramp Attendant Relationship Specialty Start Date End Date Remi Andrew MD [address] [place] [address] PCP - General Family Medicine 10/19/16 Airport Ramp Attendant Relationship Specialty Start Date End Date Remi Andrew MD [address] [place] [phone] PCP - General Family Medicine 10/19/16 Airport Ramp Attendant Relationship Specialty Start Date End Date Remi Andrew MD [address] [place] [phone] PCP - General Family Medicine 10/19/16 Airport Ramp Attendant Relationship Specialty Start Date End Date Remi Andrew MD [address] [place] [phone] PCP - General Family Medicine 10/19/16 Airport Ramp Attendant Relationship Specialty Start Date End Date Remi Andrew MD [address] [place] [phone] PCP - General Family Medicine 10/19/16 Airport Ramp Attendant Relationship Specialty Start Date End Date Remi Andrew MD [address] [place] [phone] PCP - General Family Medicine 10/19/16 Airport Ramp Attendant Relationship Specialty Start Date End Date Remi Andrew MD [address] [place] [address] PCP - General Family Medicine 10/19/16 Airport Ramp Attendant Relationship Specialty Start Date End Date Remi Andrew MD [address] [place] [phone] PCP - General Family Medicine 10/19/16 Airport Ramp Attendant Relationship Specialty Start Date End Date Remi Andrew MD [address] [place] [phone] PCP - General Family Medicine 10/19/16 Airport Ramp Attendant Relationship Specialty Start Date End Date Remi Andrew MD [address] [place] [phone] PCP - General Family Medicine 10/19/16 Airport Ramp Attendant Relationship Specialty Start Date End Date Remi Andrew MD [address] [place] [address] PCP - General Family Medicine 10/19/16 Airport Ramp Attendant Relationship Specialty Start Date End Date Remi Andrew MD [address] [place] [address] PCP - General Family Medicine 10/19/16 Airport Ramp Attendant Relationship Specialty Start Date End Date Remi Andrew MD [address] [place] [address] PCP - General Family Medicine 10/19/16 Airport Ramp Attendant Relationship Specialty Start Date End Date Remi Andrew MD [address] [place] [address] PCP - General Family Medicine 10/19/16 Airport Ramp Attendant Relationship Specialty Start Date End Date Remi Andrew MD [address] [place] [address] PCP - General Family Medicine 10/19/16 Airport Ramp Attendant Relationship Specialty Start Date End Date Remi Andrew MD [address] [place] [address] PCP - General Family Medicine 10/19/16 [employer] Ramp Attendant Relationship Specialty Start Date End Date Remi Andrew MD [address] [place] [address] PCP - General Family Medicine 10/19/16 [employer] Ramp Attendant Relationship Specialty Start Date End Date Jessa Robles CAB DRIVER [address] [place] [address] PCP - Medical [employer] 01/12/23 Remi Andrew MD [address] [place] [address] PCP - General Family Medicine 12/20/22 [employer] Ramp Attendant Relationship Specialty Start Date End Date Jessa Robles NP [address] [facility] [address] [place] [address] PCP - Medical [employer] 01/12/23 Remi Andrew MD [address] [place] [address] PCP - General Family Medicine 12/20/22 [employer] Ramp Attendant Relationship Specialty Start Date End Date Jessa Robles CAB DRIVER [address] [facility] [address] [place] [address] PCP - Medical [employer] 01/12/23 Remi Andrew MD [address] [place] [address] PCP - General Family Medicine 12/20/22 [employer] Ramp Attendant Relationship Specialty Start Date End Date Remi Andrew MD [address] [place] [address] PCP - General Family Medicine 10/19/16 Airport Ramp Attendant Relationship Specialty Start Date End Date Remi Andrew MD [address] [place] [address] PCP - General Family Medicine 10/19/16 Team Status: Inactive Member Role Status Dates Remi Andrew MD Primary Care Provide r, Attending Provider Active Start: March 28, 2024 End: March 28, 2024 Airport Ramp Attendant Relationship Specialty Start Date End Date Remi Andrew MD [address] [place] [address] PCP - General Family Medicine 10/19/16 Airport Ramp Attendant Relationship Specialty Start Date End Date Remi Andrew MD [address] [place] [address] PCP - General Family Medicine 10/19/16 Airport Ramp Attendant Relationship Specialty Start Date End Date Remi Andrew MD [address] [place] [address] PCP - General Family Medicine 10/19/16 Airport Ramp Attendant Relationship Specialty Start Date End Date Remi Andrew MD [address] [place] [address] PCP - General Family Medicine 12/20/22 Sergei Harrison DO [address] [place] [address] PCP - Medical [employer] 04/01/20 08/13/99 Essence Whitney, CAB DRIVER [address] [place] [address] Nurse Practitioner Family Medicine 01/04/24 Christie Aldana NP [address] [place] [phone] Nurse Practitioner Family Medicine 01/04/24 Airport Ramp Attendant Relationship Specialty Start Date End Date Remi Andrew MD [address] [place] [phone] PCP - General Family Medicine 10/19/16 Airport Ramp Attendant Relationship Specialty Start Date End Date Remi Andrew MD [address] [place] [address] PCP - General Family Medicine 12/20/22 Sergei Harrison DO [address] [place] [address] PCP - Medical [employer] 04/01/20 08/13/99 Essence Whitney NP [address] [place] [address] Nurse Practitioner Family Medicine 01/04/24 Christie Aldana NP [address] [place] [address] Nurse Practitioner Family Medicine 01/04/24 Airport Ramp Attendant Relationship Specialty Start Date End Date Remi Andrew MD [address] [place] [address] PCP - General Family Medicine 10/19/16 Airport Ramp Attendant Relationship Specialty Start Date End Date Remi Andrew MD [address] [place] [phone] PCP - General Family Medicine 10/19/16 Airport Ramp Attendant Relationship Specialty Start Date End Date Remi Andrew MD [address] [place] [address] PCP - General Family Medicine 12/20/22 Sergei Harrison DO [address] [facility] [place] [address] PCP - Medical [facility] 04/01/20 08/13/99 Essence Whitney NP [address] [place] [address] Nurse Practitioner Family Medicine 01/04/24 Christie Aldana NP [address] [place] [phone] Nurse Practitioner Family Medicine 01/04/24 Reason for Visit (unrecogniz ed section and content) Reason Comments New Patient Reason Comments medication concern vimpat issues Specialty Diagnoses / Procedures Referred By Contac t Referred To Contact MR IMAGING Diagnoses Partial symptomatic epilepsy with complex partial seizures, not intractable, without status epilepticus (HCC) Procedures MRI BRAIN WO IVCON MRI BRAIN BRAIN STEM W/O CONTRAST MATERIAL Robert Marin MD [address] [place] [address] Mr Imaging Referral ID Status Reason Start Date Expiration Date V isits Requested Visits Authorized [id number] Closed Auto-Generate d Referral 12/22/2021 02/05/2022 1 [...] Reason Comments Follow Up Reason Comments [facility] Reason Comments Informed Consent IRB Reason Comments Nm Pet Request Reason Comments [...] FUNCTL BRAIN MAP PHYS/QHP Leena Greenberg PA-C [address] [place] [address] Mr Imaging Referral ID Status Reason Start Date Expiration Date V isits Requested Visits Authorized [id number] Closed Auto-Generate d Referral 08/30/2022 09/29/2023 1 1 Reason Comments Epilepsy Management Conference Reason Comments Follow Up Established Patient Reason Comments New Patient Specialty Diagnoses / Procedures Referred By Contac t Referred To Contact Neurosurgery Diagnoses Partial symptomatic epilepsy with complex partial seizures, not intractable, without status epilepticus (HCC) Procedures CONSULT TO NEUROSURGERY OFFICE/OUTPATIENT NEW HIGH MDM 60-74 MINUTES Robert Marin MD [address] [place] [address] Referral ID Status Reason Start Date Expiration Date V isits Requested Visits Authorized [id number] Closed PCP Requested Referral 10/12/2022 10/12/2023 1 1 Reason Comments Radiology MRI Referral ID Status Reason Start Date Expiration Date V isits Requested Visits Authorized [id number] Closed Auto-Generate d Referral 09/29/2022 10/29/2023 1 1 Reason Comments Schedule Surgery Right SEEG Reason Comments Pre-Op Visit Specialty Diagnoses / Procedures Referred By Contac t Referred To Contact ANESTHESIOLOGY Diagnoses Pre op Clearance Procedures COMPLETE PACC Jess David MD [address] [place] [address] 6, [address] [place] [address] Referral ID Status Reason Start Date Expiration Date V isits Requested Visits Authorized [id number] Pending Review 11/22/2022 02/20/2023 1 1 Specialty Diagnoses / Procedures Referred By Contac t Referred To Contact MR IMAGING Diagnoses Encounter for other preprocedural examination Partial symptomatic epilepsy with complex partial seizures, not intractable, without status epilepticus (HCC) Preoperative testing Procedures MRI BRAIN LOCALIZATION W IVCON UNLISTED MAGNETIC RESONANCE PROCED Evaristo Torres PA-C [address] [employer], [place] [address] Mr Imaging Referral ID Status Reason Start Date Expiration Date V isits Requested Visits Authorized [id number] Closed Auto-Generate d Referral 11/22/2022 11/18/2023 [address] Specialty Diagnoses / Procedures Referred By Edmarac t Referred To Contact CT IMAGING Diagnoses Encounter for other preprocedural examination Partial symptomatic epilepsy with complex partial seizures, not intractable, without status epilepticus (HCC) Preoperative testing Procedures CTA HEAD W IVCON CT ANGIOGRAPHY HEAD W/CONTRAST/NONCONTRAST Evaristo Torres PA-C [address] [place] [id number] Imaging Referral ID Status Reason Start Date Expiration Date V isits Requested Visits Authorized [id number] Closed Auto-Generate d Referral 11/22/2022 11/18/2023 1 1 Reason Comments Results Baby Doctor - Other Reason Comments New Patient Pre-op Palpitations resolved Specialty Diagnoses / Procedures Referred By Contac t Referred To Contact Cardiology Diagnoses Preoperative testing Procedures CONSULT TO CARDIOLOGY OFFICE/OUTPATIENT NEW HIGH MDM 60-74 MINUTES Evaristo Torres PA-C [address] [place] [id number] Referral ID Status Reason Start Date Expiration Date V isits Requested Visits Authorized [id number] Closed PCP Requested Referral 10/19/2022 10/19/2023 1 1 Reason Comments Baby Doctor - Other Reason Comments Baby Doctor - Other Reason Comments Epilepsy Reason Comments [...] W/O CONTRAST MATERIAL Evaristo Torres PA-C [address] [facility] [place] [id number] Mr Imaging Referral ID Status Reason Start Date Expiration Date V isits Requested Visits Authorized [id number] Closed Auto-Generat ed Referral Patient Cleared - Admin/Chairm an/Director advise to proceed 01/10/2023 02/09/2024 1 1 Reason Comments Received Outside Medical Records [facility] Reason Comments Post-Op Visit Reason Onset Date Comments Refill Request 03/17/2023 Reason Onset Date Comments Refill Request 04/20/2023 Reason Comments Forms Panfilo flanagan my Reason Comments Other [facility] ED calling to speak with Dr. Marin; pt in ED d/t seizures Specialty Diagnoses / Procedures Referred By Contac t Referred To Contact MR IMAGING Diagnoses Partial symptomatic epilepsy with complex partial seizures, not intractable, without status epilepticus (HCC) S/P brain surgery Procedures MRI BRAIN WO IVCON MRI BRAIN BRAIN STEM W/O CONTRAST MATERIAL Claudio Michaels, TACKING MACHINE OPERATOR.GYROSCOPE REPAIRER [address] [place] [address] [place] [address] Referral ID Status Reason Start Date Expiration Date V isits Requested Visits Authorized [id number] Closed Auto-Generate d Referral 03/10/2023 04/08/2024 1 [...] surgery Procedures PROVIDER ORDERED FOLLOW UP OFFICE/OUTPATIENT [facility] MDM 60-74 MINUTES Claudio Michaels, TACKING MACHINE OPERATOR.GYROSCOPE REPAIRER [address] [place] [address] Referral ID Status Reason Start Date Expiration Date V isits Requested Visits Authorized [id number] Closed PCP Requested Referral 01/25/2024 07/24/2024 1 [...] section No data available for this section No data available for this section [...] BE BASED ON THE PRIMARY CLINICAL RECORDS. [employer] [facility]. provides no warranty or guarantee of the accuracy or completeness of information in this document.
[2024-08-09] MEDS: 0.9 % SODIUM CHLORIDE 1,000 ML 1000 ML IV (15:54)
[2024-08-09 15:58] LABS: Basophils Absolute Auto 0.1 10^3/uL (0.0-0.1); Basophils Percent Auto 0.8 % (0.2-2.0); Eosinophils Absolute Auto 0.1 10^3/uL (0.0-0.7); Eosinophils Percent Auto 0.8 % (0.9-7.0); Hematocrit 39.3 % (36.0-48.0); Hemoglobin 13.4 g/dL (12.0-16.0); Immature Granulocytes Abs Auto 0.02 10^3/uL (0.00-0.03); Immature Granulocytes Pct Auto 0.2 % (0.0-0.5); Lymphocytes Absolute Auto 2.1 10^3/uL (1.2-3.8); Lymphocytes Percent Auto 22.3 % (20.5-60.0); Mean Corpuscular HGB Conc 34.1 g/dL (29.9-35.2); Mean Corpuscular Volume 87.9 fL (81.0-99.0); Mean Platelet Volume 11.3 fL (9.5-13.5); Monocytes Absolute Auto 0.6 10^3/uL (0.3-0.8); Monocytes Percent Auto 6.5 % (1.7-12.0); Neutrophils Absolute Auto 6.4 10^3/uL (1.4-6.5); Neutrophils Percent Auto 69.4 % (43.0-75.0); Platelet Count 255 10^3/uL (150-450); Red Blood Count 4.47 10^6/uL (4.20-5.40); Red Cell Distribution Width 12.9 % (11.0-15.0); White Blood Count 9.2 10^3/uL (4.0-11.0)
[2024-08-09 16:08] LABS: Anion Gap 16.2; BUN Creatinine Ratio 8.9; Calcium 9.1 mg/dL (8.5-10.1); Carbon Dioxide 21.2 mmol/L (21.0-32.0); Chloride 103 mmol/L (98-107); Estimated GFR (African America >60 (>=60 mL/min/1.73m^2); Estimated GFR (Non-African Ame >60 (>=60 mL/min/1.73m^2); Glucose 85 mg/dL (74-106); Potassium 3.4 mmol/L (3.5-5.1); Sodium 137 mmol/L (136-145)
[2024-08-09 16:32] LABS: HCG Quantitative 72277 mIU/mL
[2024-08-09] MEDS: METOCLOPRAMIDE HCL 10 MG/2 ML VIAL IV (16:50)
[2024-08-09 17:19] LABS: Bilirubin Urine NEGATIVE (NEGATIVE); Blood Urine NEGATIVE (NEGATIVE); Clarity Urine CLEAR (CLEAR); Color Urine LT. YELLOW (YELLOW); Glucose Urine UA NEGATIVE (NEGATIVE); Ketones Urine >=80 mg/dL (NEGATIVE); Leukocyte Esterase Urine NEGATIVE (NEGATIVE); Nitrite Urine NEGATIVE (NEGATIVE); Protein Urine NEGATIVE (NEG/TRACE); Urobilinogen Urine 0.2 EU/dL (0.2-1.0); pH Urine 6.5 (5.0-9.0)
[2024-08-09 17:22] LABS: Urine Microscopic Indicated NO
[2024-08-09 17:28] LABS: Amphetamine Screen Urine NEGATIVE (NEGATIVE); Barbiturates Screen Urine NEGATIVE (NEGATIVE); Benzodiazepines Screen Urine NEGATIVE (NEGATIVE); Buprenorphine Screen Urine NEGATIVE (NEGATIVE); Cannabinoid Screen Urine POSITIVE (NEGATIVE); Cocaine Screen Urine NEGATIVE (NEGATIVE); Methadone Screen Urine NEGATIVE (NEGATIVE); Methamphetamines Screen Urine NEGATIVE (NEGATIVE); Opiate Screen Urine NEGATIVE (NEGATIVE); Oxycodone Screen Urine NEGATIVE (NEGATIVE); Phencyclidine Screen Urine NEGATIVE (NEGATIVE); Tricyclic Antidepressant Urine NEGATIVE (NEGATIVE)
== END 2024-08-09 18:20 | disposition home or self-care (01) ==
PROVIDERS: Physician Assistant; Emergency Provider Emergency Medicine; PCP Family Medicine
DX: O21.9 Vomiting of pregnancy, unspecified (principal); O99.321 Drug use complicating pregnancy, first trimester; F12.90 Cannabis use, unspecified, uncomplicated; Z3A.01 Less than 8 weeks gestation of pregnancy
CPT/HCPCS: 36415; 76817; 80048; 80307; 81003; 84702; 85025; 96361; 96374; 99285; J2765